=== PATIENT | female | born 1955 | race Two or more races ===

== ENCOUNTER 2020-08-02 15:00 | Outpatient (RCR) | payer MEDICARE, MEDICAID, SELFPAY | END 2020-08-09 09:52 | disposition still patient (30) | LOC: HO.OT 15:00 | PROVIDERS: Visit Provider Student in an Organized Health Care Education/Training Program | DX: M06.9 Rheumatoid arthritis, unspecified (principal); M79.642 Pain in left hand; M79.641 Pain in right hand | CPT/HCPCS: 97035; 97110; 97166 ==

== ENCOUNTER → 2020-08-05 11:21 | Outpatient (BNVA) | payer MEDICARE, MEDICAID, SELFPAY | PROVIDERS: Visit Provider Urology | DX: N20.0 Calculus of kidney (principal) | CPT/HCPCS: 99212 ==

== ENCOUNTER 2020-08-17 15:00 | Outpatient (RCR) | payer MEDICARE, MEDICAID, SELFPAY ==
--- NOTE | 2020-07-23 16:07 | MHC.PT.EP ---
[facility] [place] Office [place] Office [place] Office [address] [phone] F: [phone] F: [phone] F: [phone] F: [phone] Physical Therapy Plan of Care Date of Evaluation: 07/23/20 Date of Surgery: NA...R TKR IN PAST Diagnosis: RA, PAIN IN KNEES AND LB Assessment: Pt IS 64 YO F REFERRED TO PT FROM RHEUMATOLOGY WITH BACK AND KNEE PAIN (Pt REPORTS SCIATICA TYPE SXS ON R AND HAS HX OF R TKR). Pt WITH ANTALGIC GT WITH WEAK GLUT MMS AND SOME DECREASE IN HER BAL, UNABLE TO PERF 10 R OF SLR ON R, LIMITED R KNEE FLEX, TIGHT R GLUT/PIRIFORMIS (UNABLE TO SIT FIG 4 R WITHOUT A TO LIFT LEG). Pt REPORTS PT IN PAST WITHOUT RELIEF..SHOULD BENEFIT FROM PT FOR INCREASING R LE STRENGTH AND ROM TO HELP DECREASE BACK AND KNEE PAIN Frequency and Duration: The patient will be seen 2X/WK X 6 WKS Short Term Goals: 1. CENTRALIZE SXS 2. INCREASED AWARENESS BACK AND KNEE CARE Custodial Goals: 1, I HEP WITH DC EX PLAN 2. DECREASED BACK PAIN AT LEAST 50% WITH ADLS 3. DECREASED KNEE PAIN AT LEAST 50% WITH ADLS 4. INCREASED R KNEE ROM 10 DEGREES Treatment Plan: Modalities to reduce pain, spasms and effusion. Manual therapy to restore motion and function. Therapeutic exercise to improve strength and flexibility. Neuromuscular re-education for posture and balance. Therapeutic activities to return to functional activities of daily living. Please sign and return to therapist. Thank you for your referral.
--- NOTE | 2020-07-23 16:09 | MHC.PT.EP ---
[facility] [place] Office [place] Office [place] Office [address] [phone] F: [phone] F: [phone] F: [phone] F: [phone] Physical Therapy Plan of Care Date of Evaluation: 07/23/20 Date of Surgery: NA...R TKR IN PAST Diagnosis: RA, PAIN IN KNEES AND LB Assessment: Pt IS 64 YO F REFERRED TO PT FROM RHEUMATOLOGY WITH BACK AND KNEE PAIN (Pt REPORTS SCIATICA TYPE SXS ON R AND HAS HX OF R TKR). Pt WITH ANTALGIC GT WITH WEAK GLUT MMS AND SOME DECREASE IN HER BAL, UNABLE TO PERF 10 R OF SLR ON R, LIMITED R KNEE FLEX, TIGHT R GLUT/PIRIFORMIS (UNABLE TO SIT FIG 4 R WITHOUT A TO LIFT LEG). Pt REPORTS PT IN PAST WITHOUT RELIEF..SHOULD BENEFIT FROM PT FOR INCREASING R LE STRENGTH AND ROM TO HELP DECREASE BACK AND KNEE PAIN Frequency and Duration: The patient will be seen 2X/WK X 6 WKS Short Term Goals: 1. CENTRALIZE SXS 2. INCREASED AWARENESS BACK AND KNEE CARE Snf Goals: 1, I HEP WITH DC EX PLAN 2. DECREASED BACK PAIN AT LEAST 50% WITH ADLS 3. DECREASED KNEE PAIN AT LEAST 50% WITH ADLS 4. INCREASED R KNEE ROM 10 DEGREES Treatment Plan: Modalities to reduce pain, spasms and effusion. Manual therapy to restore motion and function. Therapeutic exercise to improve strength and flexibility. Neuromuscular re-education for posture and balance. Therapeutic activities to return to functional activities of daily living. Please sign and return to therapist. Thank you for your referral.
--- NOTE | 2020-09-24 09:57 | MHC.PT.DC ---
[facility] [place] Office [place] Office [place] Office [address]rie Pereira [address] [phone] F: [phone] F: [phone] F: [phone] F: [phone] Physical Therapy Discharge Report Diagnosis: RA, PAIN IN KNEES AND LB Date of Surgery: NA...R TKR IN PAST Date of Evaluation: 07/23/20 Date of Discharge: 09/24/20 Treatments to Date: 7 Cancellations to Date: 1 No Shows to Date: 1 Discharge Status: Patient Elected to Stop Discharge Summary: Pt LAST SEEN ON 08/17/2020 THEN NO SHOW ON 08/20/20 AT LAST APPT FATIGUE REPORTED WITH STANDING EXS, RELIEF WITH MH FOR LB. pt. reports doing some ex at home. [ End ] Electronically signed by: MANNY SELF PT Please sign and return to therapist. Thank you for your referral.
== END 2020-11-03 12:15 | disposition other institution (70) ==
LOC: HO.PT 15:00
PROVIDERS: PCP Internal Medicine; Visit Provider Student in an Organized Health Care Education/Training Program
DX: M06.9 Rheumatoid arthritis, unspecified (principal)
CPT/HCPCS: 97110; 97140; 97162

== ENCOUNTER 2020-09-28 11:52 | Outpatient (REF) | payer MEDICARE, MEDICAID, SELFPAY ==
[2020-09-28 12:30] LABS: MANUAL DIFF FLAG NO
[2020-09-28 12:45] LABS: Basophils Absolute Auto 0.1 X10*3/uL (0.0-0.2); Basophils Percent Auto 0.8 % (0-2); Eosinophils Absolute Auto 0.1 X10*3/uL (0.0-0.4); Hematocrit 41.7 % (37-47); Hemoglobin 13.6 g/dl (12.0-16.0); Imm Gran Abs Auto 0.01 X10*3/uL (0.00-0.03); Imm Gran Pct Auto 0.2 % (0.0-0.4); Lymphocytes Absolute Auto 2.5 X10*3/uL (1.2-4.9); Lymphocytes Percent Auto 41.8 % (20-40); Mean Corpuscular HGB Conc 32.6 g/dl (31.0-35.0); Mean Corpuscular Hemoglobin 30.4 pg (27.0-33.0); Mean Corpuscular Volume 93.1 fL (80-98); Mean Platelet Volume 10.2 fL (9.4-12.3); Monocytes Absolute Auto 0.6 X10*3/uL (0.1-1.2); Monocytes Percent Auto 9.1 % (2-11); Neutrophils Absolute Auto 2.8 X10*3/uL (2.0-8.3); Neutrophils Percent Auto 46.1 % (45-73); Platelet Count 160 X10*3/uL (160-400); Red Blood Count 4.48 X10*6/uL (4.20-5.50); Red Cell Distribution Width 13.2 % (11.0-16.0); White Blood Count 6.1 X10*3/uL (4.8-10.8)
[2020-09-28 13:06] LABS: Alanine Aminotransferase 22 U/L (0-31); Alkaline Phosphatase 62 U/L (39-117); Anion Gap 11 (12-20); Aspartate Amino Transferase 21 U/L (5-31); Bilirubin Total 0.6 mg/dL (0.0-1.0); Blood Urea Nitrogen 18 mg/dL (9-16); C Reactive Protein 0.07 mg/dL (< or = 0.50); Calcium 8.9 mg/dL (8.4-10.2); Carbon Dioxide 28 mmol/L (22-29); Chloride 109 mmol/L (96-108); Estimated Glomerular Filt Rate > 60; Glucose Random 101 mg/dL (60-115); Potassium 3.9 mmol/l (3.3-5.1); Sodium 144 mmol/L (135-145); Total Protein 7.4 g/dL (6.5-8.0)
== END 2020-09-28 11:53 | disposition home or self-care (01) ==
LOC: HO.LAB 11:52
PROVIDERS: PCP Internal Medicine; Visit Provider Student in an Organized Health Care Education/Training Program
DX: N20.0 Calculus of kidney (principal); R73.01 Impaired fasting glucose; M06.9 Rheumatoid arthritis, unspecified; L50.8 Other urticaria; M47.812 Spondylosis without myelopathy or radiculopathy, cervical region; G47.00 Insomnia, unspecified; M21.622 Bunionette of left foot
CPT/HCPCS: 36415; 80053; 85025; 86140

== ENCOUNTER → 2020-10-19 12:51 | Outpatient (BNVA) | payer MEDICARE, MEDICAID, SELFPAY | PROVIDERS: Visit Provider Student in an Organized Health Care Education/Training Program | DX: Z13.89 Encounter for screening for other disorder (principal) | CPT/HCPCS: Q3014 ==

== ENCOUNTER 2020-12-24 09:09 | Outpatient (REF) | payer MEDICARE, MEDICAID, SELFPAY ==
[2020-12-24 10:18] LABS: MANUAL DIFF FLAG NO
[2020-12-24 10:20] LABS: Basophils Absolute Auto 0.1 X10*3/uL (0.0-0.2); Basophils Percent Auto 0.7 % (0-2); Eosinophils Absolute Auto 0.1 X10*3/uL (0.0-0.4); Eosinophils Percent Auto 1.4 % (0-4); Hematocrit 40.2 % (37-47); Imm Gran Abs Auto 0.01 X10*3/uL (0.00-0.03); Imm Gran Pct Auto 0.1 % (0.0-0.4); Lymphocytes Percent Auto 35.5 % (20-40); Mean Corpuscular HGB Conc 32.3 g/dl (31.0-35.0); Mean Corpuscular Hemoglobin 29.7 pg (27.0-33.0); Mean Platelet Volume 9.9 fL (9.4-12.3); Monocytes Absolute Auto 0.8 X10*3/uL (0.1-1.2); Monocytes Percent Auto 9.6 % (2-11); Neutrophils Absolute Auto 4.4 X10*3/uL (2.0-8.3); Neutrophils Percent Auto 52.7 % (45-73); Platelet Count 230 X10*3/uL (160-400); Red Blood Count 4.37 X10*6/uL (4.20-5.50); Red Cell Distribution Width 13.8 % (11.0-16.0); White Blood Count 8.3 X10*3/uL (4.8-10.8)
[2020-12-24 10:48] LABS: Cholesterol 160 mg/dL; HDL Cholesterol 46 mg/dL; LDL Cholesterol Calculated 90 mg/dl; Triglycerides 121 mg/dL
[2020-12-24 10:51] LABS: Alanine Aminotransferase 18 U/L (0-31); Albumin Level 3.8 g/dL (3.5-5.0); Alkaline Phosphatase 59 U/L (39-117); Anion Gap 12 (12-20); Aspartate Amino Transferase 14 U/L (5-31); Bilirubin Total 0.5 mg/dL (0.0-1.0); Blood Urea Nitrogen 21 mg/dL (9-16); C Reactive Protein 0.06 mg/dL (< or = 0.50); Calcium 8.7 mg/dL (8.4-10.2); Carbon Dioxide 27 mmol/L (22-29); Chloride 109 mmol/L (96-108); Estimated Glomerular Filt Rate > 60; Glucose Random 112 mg/dL (60-115); Potassium 4.1 mmol/L (3.3-5.1); Sodium 144 mmol/L (135-145); Total Protein 7.1 g/dL (6.5-8.0)
[2020-12-24 11:12] LABS: Erythrocyte Sedimentation Rate 26 MM/HR (0-20)
== END 2020-12-24 09:10 | disposition home or self-care (01) ==
LOC: HO.LAB 09:09
PROVIDERS: Absent Provider Internal Medicine; PCP Internal Medicine; Visit Provider Student in an Organized Health Care Education/Training Program
DX: M06.00 Rheumatoid arthritis without rheumatoid factor, unspecified site (principal); Z79.52 Long term (current) use of systemic steroids; Z79.899 Other long term (current) drug therapy
CPT/HCPCS: 36415; 80053; 80061; 85025; 85652; 86140; 99212

== ENCOUNTER 2021-02-13 01:58 | Emergency (ER) | payer MEDICARE, MEDICAID, SELFPAY ==
--- NOTE | ~2021-02-13 | CT_ITS ---
EXAMINATION: CT MASTOID BONE CLINICAL INFORMATION: Right sided pain over mastoid COMPARISON: MRI brain 08/04/2015 TECHNIQUE: Contiguous axial imaging through the skull at the level of the mastoid air cells. Coronal and sagittal reformats. FINDINGS: There is a fracture of the posterior mastoid cortex (series 2 image 44/212). There is chronic bony destruction at the level of the occipitomastoid suture. A radiopaque foreign body is noted in the overlying subcutaneous fat with an abnormal soft tissue process containing low-attenuation foci suspicious for air. This has the appearance of a pathologic fracture associated with an infectious or granulomatous process. Given a radiopaque foreign body, prior penetrating injury is suspected; clinical correlation is required. Anteriorly the right mastoid air cells are clear. The left mastoid air cells are clear. The internal/external auditory canals are intact. The ossicles are intact. There is a small polyp or mucous retention cyst in the liver right maxillary sinus. There is mild left maxillary sinusitis with mucosal thickening. Nasal septum is deviated to the right. The temporomandibular joints articulate normally. There is asymmetric right greater than left temporomandibular joint space loss with bony sclerosis suggesting osteoarthritis. Calcific density within the medial joint space (example coronal series 5 image 30/162) may represent a calcified extruded disc. This is a potential cause of right-sided pain and dental consultation is advised. Patient is status post bilateral lens extraction. Atherosclerotic peripheral vascular disease. Limited views of the intracranial structures are normal. CT/CT mastoid IMPRESSION: 1. There is an apparent pathologic fracture along the posterior aspect of the right mastoid bone at the level of the occipitomastoid suture. There is overlying soft tissue abnormality with radiopaque foreign body. This raises the possibility of infection and prior penetrating injury. Clinical correlation is required. 2. Also noted is asymmetric degenerative disease of the right temporal mandibular joint with joint space loss, calcination and extrusion of the disc. 3. Mild left-sided predominant maxillary sinus disease.
[2021-02-13 02:00] VITALS: BP 146/49; PULSE 91; RESP 20; O2SAT 95; BMI 31.5
--- NOTE | 2021-02-13 03:30 | ED_ITS ---
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 Patient was seen at [facility] and evaluated by Neurology and treated on 01/19 with a glycerol rhizotomy this states that she had little relief. Patient presented to [facility] again 2 days ago and at that time states that heard doses of gabapentin and Percocet were increased. Patient now presents this evening stating that she continues to have severe pain to the right side of the face and jaw and is not getting any relief with the pain medications despite taking the gabapentin, 200 mg, b.i.d. and the Percocet every 6 hours. She denies visual disturbances or pain over the right temporal area as well as denying any pain with chewing. She denies fever, chills, sore throat, ear pain, difficulty swallowing. Patient states that the pain is sharp, shooting in nature and points to the posterior aspect of the right angle of the jaw. She denies any tooth pain or pain on opening her mouth. Related Data Home Medications Medication Instructions Recorded Confirmed acetaminophen 325 mg capsule 325 mg PO QID PRN 07/08/20 01/21/21 cholecalciferol (vitamin D3) 50 50 mcg PO DAILY 07/08/20 01/21/21 mcg (2,000 unit) capsule diclofenac sodium 1 % topical gel g TOPICAL DAILY 07/08/20 01/21/21 pyridoxine (vitamin B6) 100 mg 50 mg PO BID 07/08/20 01/21/21 tablet tizanidine 2 mg tablet 2 mg PO BEDTIME PRN 07/08/20 01/21/21 Previous Rx's Medication Instructions Recorded etanercept 50 mg/mL (1 mL) 50 mg SUBCUT QWEEK #4 ml 08/31/20 subcutaneous pen injector pregabalin 100 mg capsule 100 mg PO BID #60 cap 11/09/20 hydroxychloroquine 200 mg tablet 200 mg PO BID #60 tab 11/12/20 benzonatate 200 mg capsule 200 mg PO TID PRN #30 cap 12/07/20 baclofen 10 mg tablet 10 mg PO TID #90 tab 12/21/20 omeprazole 20 mg capsule,delayed 20 mg PO DAILY #90 cap 01/12/21 release Allergies Allergy/AdvReac Type Severity Reaction Status Date / Time No Known Allergies Allergy Verified 01/21/21 00:39 [No Known Allergies*] Review of Systems Review of Systems: Pertinent positives and negatives as stated in HPI 10 point review of systems is otherwise negative. PMFSH Past Medical History Source: nursing notes reviewed Medical History Autoimmune urticaria Cervical spondylosis without myelopathy Fibromyalgia Gastroesophageal reflux disease Hiatal hernia Impaired fasting glucose Insomnia Loose right total knee arthroplasty Morbid obesity due to excess calories Osteoarthritis Rheumatoid arthritis Seronegative rheumatoid arthritis Tailor's bunion of left foot Trigeminal neuralgia of right side of face Surgical History History of bunionectomy of left great toe History of cranioplasty History of laparoscopic cholecystectomy History of shoulder surgery Status post laser lithotripsy of ureteral calculus Status post right knee replacement Family History Family History Father No problems noted. Mother Hypertension Maternal Grandmother No problems noted. Maternal Grandfather No problems noted. Paternal Grandmother No problems noted. Paternal Grandfather No problems noted. Maternal Aunt Diabetes Sister No problems noted. Son No problems noted. Daughter No problems noted. Social History Social History Alcohol intake: never Smoking Status: Never smoker Advance Directives: No Advance Directives Information Provided: No Physical Exam Vital Signs: Vital Signs: Last Vital Signs Pulse 86 02/13/21 06:14 Resp 18 02/13/21 06:14 BP 137/74 02/13/21 06:14 Pulse Ox 91 L 02/13/21 06:14 Body Mass Index 31.5 VITAL SIGNS: Reviewed. GENERAL: Well developed, well nourished, mild distress. HEAD: Normocephalic/atraumatic, no bogginess/erythema/swelling noted over mastoid bone and no tenderness on palpation, there is no tenderness on palpation over right temporal/forehead area, there is no evidence of sialadenitis EYES: PERRLA, EOMI, pupils pinpoint EARS: Ext canals without abnormality, TMs non-bulging and non-erythematous NOSE: Nares patent bilateral OROPHARYNX: no oral lesions noted, posterior pharynx clear and non-erythematous without noted tonsillar enlargement/erythema/exudates, no dental caries/swelling noted NECK: Supple, no adenopathy LUNGS: Normal breath sounds. No adventitious sounds or accessory muscle use. SpO2<95> CARDIOVASCULAR: Regular rate and rhythm without noted murmurs ABDOMEN: Soft, non-tender, non-distended with bowel sounds. NEUROLOGIC: Alert and oriented x 4. Course Course Course Narrative: 65-year-old female with history and clinical presentation of persistent pain concerns are that this is potentially ?ghost pain? after the [place] procedure in 2014. Will rule out mastoiditis and low clinical suspicion for TMJ, AOM, giant cell arteritis, peritonsillar abscess, retropharyngeal abscess. Records requested from [facility]. Patient provided with combination analgesics Tylenol and Toradol. Reviewed note from [facility] dated 09/27/2020 and at that time patient requested follow-up with Dr. Lopez for her trigeminal neuralgia. Reviewed documentation from [facility] on 02/11 and at that time she was treated with fosphenytoin with resolution of her pain and then she was discharged on oxycodone and Tegretol. Review of all investigations shows an ESR within normal limits which is inconsistent with giant cell arteritis in addition to clinical exam which showed it to be unlikely. In addition, CT scan does show what appears to be a pathologic fracture within the mastoid and on further discussion with [facility] it is felt that this is consistent with the granulomatous reaction that is lead to the pathologic fracture. The radiologist states that he will formally request a neuroradiologist to review the images and post an addendum. Patient was provided with some Dilaudid which has provided minimal pain improvement. Your results and findings of the CT scan were discussed with the patient at bedside with the sales audit clerk. To include, the findings of significant degenerative changes at the right TMJ. Signed out to Mar: f/u Neuro-Radiologist read and discharge with follow up with her neurosurgeon on Sunday and +/- steroids. Medical Decision Making Lab Data Result diagrams: 02/13/21 03:26 02/13/21 03:26 Labs: Lab Results 02/13/21 02/13/21 02/13/21 Range/Units 03:26 03:26 03:26 WBC 6.1 (4.8-10.8) X10*3/uL RBC 4.37 (4.20-5.50) X10*6/uL Hgb 13.3 (12.0-16.0) g/dl Hct 39.2 (37-47) % MCV 89.7 (80-98) fL MCH 30.4 (27.0-33.0) pg MCHC 33.9 (31.0-35.0) g/dl RDW 13.3 (11.0-16.0) % Plt Count 139 L D (160-400) X10*3/uL MPV 10.1 (9.4-12.3) fL Immature Gran % (Auto) 0.2 (0.0-0.4) % Neut % (Auto) 48.4 (45-73) % Lymph % (Auto) 40.5 H (20-40) % [facility] % (Auto) 9.7 (2-11) % Eos % (Auto) 0.5 (0-4) % Baso % (Auto) 0.7 (0-2) % Lymph # (Auto) 2.5 (1.2-4.9) X10*3/uL [facility] # (Auto) 0.6 (0.1-1.2) X10*3/uL Eos # (Auto) 0.0 (0.0-0.4) X10*3/uL Baso # (Auto) 0.0 (0.0-0.2) X10*3/uL Abs Immat Gran (auto) 0.01 (0.00-0.03) X10*3/uL Absolute Neuts (auto) 2.9 (2.0-8.3) X10*3/uL Absolute Nucleated RBC 0.000 (0.0-0.012) X10*3/uL Nucleated RBC % (auto) 0.0 (0.0-0.2) /100WBC ESR 16 (0-20) MM/HR Sodium 142 (135-145) mmol/L Potassium 3.7 (3.3-5.1) mmol/L Chloride 108 (96-108) mmol/L Carbon Dioxide 25 (22-29) mmol/L Anion Gap 13 (12-20) BUN 14 (9-16) mg/dL Creatinine 0.66 (0.5-1.4) mg/dL Estim Creat Clear Calc 81.2 Estimated GFR > 60 Random Glucose 119 H (60-115) mg/dL Calcium 8.8 (8.4-10.2) mg/dL Total Bilirubin 0.4 (0.0-1.0) mg/dL AST 14 (5-31) U/L ALT 16 (0-31) U/L Alkaline Phosphatase 73 D (39-117) U/L C-Reactive Protein 0.12 (< or = 0.50) mg/dL Total Protein 7.3 (6.5-8.0) g/dL Albumin 4.1 (3.5-5.0) g/dL Discharge Plan Discharge Prescriptions: No Action etanercept 50 mg/mL (1 mL) pen injector 50 mg subcut QWEEK Qty: 4 RF: 5 pregabalin 100 mg capsule 100 mg PO BID Qty: 60 RF: 5 hydroxychloroquine 200 mg tablet 200 mg PO BID Qty: 60 RF: 5 benzonatate 200 mg capsule 200 mg PO TID PRN (Reason: cough) Qty: 30 RF: 0 baclofen 10 mg tablet 10 mg PO TID Qty: 90 RF: 3 omeprazole 20 mg capsule,delayed release(DR/EC) 20 mg PO DAILY Qty: 90 RF: 0 tizanidine 2 mg tablet 2 mg PO BEDTIME PRNRF: 0 diclofenac sodium 1 % gel topical DAILY RF: 0 acetaminophen 325 mg capsule 325 mg PO QID PRNRF: 0 pyridoxine (vitamin B6) [Vitamin B-6] 100 mg tablet 50 mg PO BID RF: 0 cholecalciferol (vitamin D3) 50 mcg (2,000 unit) capsule 50 mcg PO DAILY RF: 0
[2021-02-13 03:33] LABS: Basophils Percent Auto 0.7 % (0-2); Eosinophils Percent Auto 0.5 % (0-4); Imm Gran Abs Auto 0.01 X10*3/uL (0.00-0.03); Imm Gran Pct Auto 0.2 % (0.0-0.4); Monocytes Percent Auto 9.7 % (2-11); Neutrophils Absolute Auto 2.9 X10*3/uL (2.0-8.3); PLT CLUMP 1; SCAN SMEAR FLAG 1
[2021-02-13 03:35] LABS: Hematocrit 39.2 % (37-47); Hemoglobin 13.3 g/dl (12.0-16.0); Lymphocytes Absolute Auto 2.5 X10*3/uL (1.2-4.9); Lymphocytes Percent Auto 40.5 % (20-40); Mean Corpuscular HGB Conc 33.9 g/dl (31.0-35.0); Mean Corpuscular Hemoglobin 30.4 pg (27.0-33.0); Mean Corpuscular Volume 89.7 fL (80-98); Mean Platelet Volume 10.1 fL (9.4-12.3); Monocytes Absolute Auto 0.6 X10*3/uL (0.1-1.2); Neutrophils Percent Auto 48.4 % (45-73); Platelet Count 139 X10*3/uL (160-400); Red Blood Count 4.37 X10*6/uL (4.20-5.50); Red Cell Distribution Width 13.3 % (11.0-16.0); White Blood Count 6.1 X10*3/uL (4.8-10.8)
[2021-02-13 03:42] LABS: MANUAL DIFF FLAG NO
[2021-02-13 03:55] LABS: Alanine Aminotransferase 16 U/L (0-31); Albumin Level 4.1 g/dL (3.5-5.0); Alkaline Phosphatase 73 U/L (39-117); Anion Gap 13 (12-20); Aspartate Amino Transferase 14 U/L (5-31); Bilirubin Total 0.4 mg/dL (0.0-1.0); Blood Urea Nitrogen 14 mg/dL (9-16); C Reactive Protein 0.12 mg/dL (< or = 0.50); Calcium 8.8 mg/dL (8.4-10.2); Carbon Dioxide 25 mmol/L (22-29); Chloride 108 mmol/L (96-108); Creatinine Clr Calc Pharmacy 81.2; Estimated Glomerular Filt Rate > 60; Glucose Random 119 mg/dL (60-115); Potassium 3.7 mmol/L (3.3-5.1); Sodium 142 mmol/L (135-145); Total Protein 7.3 g/dL (6.5-8.0)
[2021-02-13] MEDS: Ketorolac Tromethamine 15 MG/ML VIAL IM (04:06)
[2021-02-13] MEDS: Acetaminophen 325 MG TABLET 975 MG PO (04:06)
[2021-02-13 04:19] LABS: Erythrocyte Sedimentation Rate 16 MM/HR (0-20)
[2021-02-13] MEDS: HYDROmorphone HCl 0.5 MG/0.5 ML SYRINGE 0.25 MG IVPUSH (06:03)
[2021-02-13 06:14] VITALS: BP 137/74; PULSE 86; RESP 18; O2SAT 91
--- NOTE | 2021-02-13 06:21 | PC.NURSE ---
PT EXPERIENCING PAIN TO RIGHT LATERAL POSTERIOR NECK. PT FALLS ASLEEP FOR APROX 1 HOUR BEFORE VITALS AND MEDICATION ADMINISTRATION.
--- NOTE | 2021-02-13 07:31 | PC.NURSE ---
Pt continues to report 10/10 right jaw pain, splinting area. Dr Vaughan and staff nurse midwife at bedside at this time.
[2021-02-13] MEDS: Morphine Sulfate 4 MG/ML CARTRIDGE IVPUSH (08:08)
[2021-02-13 08:09] VITALS: BP 131/76; PULSE 78; RESP 16; O2SAT 95
--- NOTE | 2021-02-13 08:11 | PC.NURSE ---
Pt medicated as charted for jaw pain. Placed on 2lpm via nc, 02 down to 91% during morphine administration, pt also reports avoiding deep breathing d.t increased pain to jaw with deep breathing. denies feeling SOB
--- NOTE | 2021-02-13 08:28 | PC.NURSE ---
Plan for pt to be transferred to [facility] for further eval and treat
--- NOTE | 2021-02-13 08:41 | PC.NURSE ---
Pt request this RN speak to Thomas and update him on plan for transfer contact [phone] Thomas called
== END 2021-02-13 09:26 | disposition short-term general hospital (02) ==
PROVIDERS: Student in an Organized Health Care Education/Training Program; Emergency Provider Emergency Medicine Emergency Medical Services; PCP Internal Medicine
DX: G50.0 Trigeminal neuralgia (principal); G89.29 Other chronic pain; Z79.899 Other long term (current) drug therapy
CPT/HCPCS: 36415; 70481; 80053; 85025; 85652; 86140; 96372; 96374; 96375; 99285; J1170; J1885; J2270

== ENCOUNTER → 2021-03-24 11:14 | Outpatient (BNVA) | payer MEDICARE, MEDICAID, SELFPAY | PROVIDERS: PCP Internal Medicine; Visit Provider Student in an Organized Health Care Education/Training Program | DX: M06.00 Rheumatoid arthritis without rheumatoid factor, unspecified site (principal) | CPT/HCPCS: 99212 ==

== ENCOUNTER 2021-03-28 13:28 | Outpatient (REF) | payer MEDICARE, MEDICAID, SELFPAY ==
--- NOTE | ~2021-03-28 | XR_ITS ---
EXAMINATION: XR KNEE, RIGHT CLINICAL INFORMATION: Rheumatoid arthritis without rheumatoid factor. COMPARISON: None. TECHNIQUE: 4 views of the right knee. FINDINGS: There is total knee arthroplasty with prosthetic components in satisfactory alignment. No visible acute fracture or bony abnormality. The soft tissues are normal. XR/XR knee RT 4V IMPRESSION: Total right knee arthroplasty with prosthetic components in satisfactory alignment.
== END 2021-03-28 13:29 | disposition home or self-care (01) ==
LOC: HO.XRAY 13:28
PROVIDERS: PCP Internal Medicine; Visit Provider Student in an Organized Health Care Education/Training Program
DX: M06.00 Rheumatoid arthritis without rheumatoid factor, unspecified site (principal)
CPT/HCPCS: 73564

== ENCOUNTER 2021-05-20 13:39 | Emergency (ER) | payer MEDICARE, MEDICAID, SELFPAY ==
--- NOTE | ~2021-05-20 | CT_ITS ---
EXAMINATION: CT ABDOMEN AND PELVIS WITHOUT CONTRAST CLINICAL INFORMATION: Left flank pain/left lower quadrant abdominal pain COMPARISON: November 30, 2019 TECHNIQUE: Multidetector volumetric imaging was performed from the superior aspect of the liver through the pubic symphysis. Sagittal and coronal reformatted images were obtained on the technologist's workstation. This CT examination was performed using dose optimization techniques as appropriate, variously including the following: *Automated exposure control *Adjustment of mA and/or kV according to patient size (this includes techniques or standardized protocols for targeted exams where dose is matched to indication/reason for exam; i.e. extremities or head) *Use of iterative reconstruction technique DLP: 890 mGy-cm FINDINGS: LUNG BASES: There is bilateral groundglass opacity present which may be related to atelectasis. No pleural or pericardial effusion. LIVER, GALLBLADDER, AND BILIARY TREE: The liver is normal in size, shape, and attenuation. No focal hepatic lesion or biliary ductal dilatation is present. Status post cholecystectomy. PANCREAS: Unremarkable. SPLEEN: Unremarkable. ADRENAL GLANDS: Unremarkable. KIDNEYS AND URETERS: The kidneys are normal in size, shape, and attenuation. No hydronephrosis, hydroureter, or calculi seen. No perinephric stranding. There has been resolution of previously noted mild right hydronephrosis.There is question of a 1 mm nonocclusive calculus within the distal left ureter however this is likely related to pixel artifact with no secondary evidence to suggest a nonobstructing calculus. BLADDER: Unremarkable. GASTROINTESTINAL TRACT: No dilated loops of large or small bowel are evident. No free fluid or free air is seen. No pericolonic inflammatory change. The appendix is visualized and appears unremarkable. ABDOMINAL WALL: No significant hernia is appreciated. LYMPH NODES: No lymphadenopathy identified. VASCULAR: Unremarkable. PELVIC VISCERA: Unremarkable. OSSEOUS STRUCTURES: No destructive bony lesions identified. There is mild scoliosis of the lumbar spine convex left. CT/CT abdomen pelvis wo con IMPRESSION: No definite evidence of obstructive uropathy as described. No evidence of ileus or bowel obstruction.
[2021-05-20 14:08] VITALS: BP 113/78; PULSE 87; RESP 18; TEMP 36.4; O2SAT 96; BMI 32.8
[2021-05-20] MEDS: oxyCODONE HCl Immed Release 5 MG TABLET PO (14:43)
[2021-05-20 14:47] LABS: MANUAL DIFF FLAG NO
[2021-05-20 14:48] LABS: Basophils Percent Auto 0.7 % (0-2); Eosinophils Absolute Auto 0.1 X10*3/uL (0.0-0.4); Eosinophils Percent Auto 1.5 % (0-4); Hematocrit 38.6 % (37-47); Imm Gran Abs Auto 0.01 X10*3/uL (0.00-0.03); Imm Gran Pct Auto 0.2 % (0.0-0.4); Lymphocytes Absolute Auto 2.3 X10*3/uL (1.2-4.9); Mean Corpuscular HGB Conc 33.7 g/dl (31.0-35.0); Mean Corpuscular Hemoglobin 30.8 pg (27.0-33.0); Mean Corpuscular Volume 91.5 fL (80-98); Mean Platelet Volume 9.8 fL (9.4-12.3); Monocytes Absolute Auto 0.6 X10*3/uL (0.1-1.2); Monocytes Percent Auto 10.4 % (2-11); Neutrophils Absolute Auto 2.8 X10*3/uL (2.0-8.3); Neutrophils Percent Auto 47.2 % (45-73); Platelet Count 138 X10*3/uL (160-400); Red Blood Count 4.22 X10*6/uL (4.20-5.50); Red Cell Distribution Width 13.2 % (11.0-16.0); White Blood Count 5.9 X10*3/uL (4.8-10.8)
[2021-05-20 15:15] LABS: Alanine Aminotransferase 14 U/L (0-31); Aspartate Amino Transferase 15 U/L (5-31); Blood Urea Nitrogen 14 mg/dL (9-16); Creatinine Clr Calc Pharmacy 65.6; Estimated Glomerular Filt Rate > 60
--- NOTE | 2021-05-20 15:44 | ED_ITS ---
HPI - Back Pain/Injury General Chief Complaint: Back Pain/Injury Stated Complaint: back pain Time Seen by Provider: 05/20/21 14:16 Source: patient Mode of arrival: ambulatory Limitations: no limitations History of Present Illness HPI Narrative: 65-year-old female presenting to the ED with complaints of atraumatic left back pain radiating to her left flank/left lower quadrant with associated intermittent episodes of diarrhea over the past few days worse today. She also reports dysuria. Denies any other symptoms complaints or concerns at this time. Reports she has had this pain in the past and she has had kidney stones. MD elicited complaint: back pain Pertinent past history: prior back pain and kidney stones Onset (ago): day(s) Timing: constant and progressively worsening Severity: moderate Similar Symptoms Previously: Yes Quality: aching Location: left flank and left lower back Radiation: abdomen (LLQ) Exacerbating factors: movement Relieving factors: immobilization Context: unknown Associated symptoms: increased urinary urgency, increased urinary frequency, abdominal pain and dysuria Treatments prior to arrival: NSAIDS and acetaminophen Work related injury: No Related Data Home Medications Medication Instructions Recorded Confirmed acetaminophen 325 mg capsule 325 mg PO QID PRN 07/08/20 01/21/21 cholecalciferol (vitamin D3) 50 50 mcg PO DAILY 07/08/20 01/21/21 mcg (2,000 unit) capsule diclofenac sodium 1 % topical gel g TOPICAL DAILY 07/08/20 01/21/21 pyridoxine (vitamin B6) 100 mg 50 mg PO BID 07/08/20 01/21/21 tablet (Vitamin B-6) tizanidine 2 mg tablet 2 mg PO BEDTIME PRN 07/08/20 01/21/21 carbamazepine 400 mg 400 mg PO BID 03/24/21 tablet,extended release,12 hr Previous Rx's Medication Instructions Recorded benzonatate 200 mg capsule 200 mg PO TID PRN #30 cap 12/07/20 baclofen 10 mg tablet 10 mg PO TID #90 tab 12/21/20 etanercept 50 mg/mL (1 mL) 50 mg SUBCUT QWEEK #4 ml 02/15/21 subcutaneous pen injector pregabalin 150 mg capsule (Lyrica) 150 mg PO BID #60 cap 03/15/21 prednisone 5 mg tablet See Rx Instructions PO DAILY #50 03/24/21 tab hydroxychloroquine 200 mg tablet 200 mg PO BID #60 tab 04/19/21 omeprazole 20 mg capsule,delayed 20 mg PO DAILY #90 cap 04/19/21 release cefuroxime axetil 500 mg tablet 500 mg PO BID 7 Days #14 tab 05/20/21 cyclobenzaprine 10 mg tablet 10 mg PO Q8H #10 tab 05/20/21 lidocaine HCl 4 % topical cream 1 appl TOPICAL BID PRN #120 g 05/20/21 (Aspercreme (lidocaine HCl)) naproxen 500 mg tablet 500 mg PO BID PRN #10 tab 05/20/21 oxycodone-acetaminophen 5 mg-325 1 tab PO Q6H PRN #10 tab 05/20/21 mg tablet (Percocet) Allergies Allergy/AdvReac Type Severity Reaction Status Date / Time No Known Allergies Allergy Verified 03/24/21 11:26 [No Known Allergies*] Review of Systems Review of Systems: Constitutional : No trauma, No Weight loss, No Fever, No Chills, ENT/Mouth : No Hearing loss, No Ear Pain, No Nasal Congestion, No Sinus Pain, No Hoarseness, No sore throat, No Rhinorrhea, No Swallowing Difficulty Cardiovascular : No Chest Pain, No SOB Respiratory : No Cough, No Dyspnea Gastrointestinal : + Diarrhea, + Abdominal pain, No Nausea, No Vomiting, No Hematochezia, No Melena Genitourinary : No Dysuria, No Urinary Frequency, No Hematuria, No Urinary or Bowel Incontinence/retention Musculoskeletal : + Back pain, No neck pain, No joint stiffness, No joint swelling Skin : No Skin Lesions, No rash or signs of infection Neuro : No Weakness, No radiation, No Numbness, No Paresthesias, No headache, no loss of bowel or bladder incontinence, no saddle anesthesia, Focal weakness, No radiation Denies history of IV drug usage. Yes all other systems are reviewed and are negative [facility] Past Medical History Attestation statement: The following information was validated with the patient. Medical History Autoimmune urticaria Cervical spondylosis without myelopathy Fibromyalgia Gastroesophageal reflux disease Hiatal hernia Impaired fasting glucose Insomnia Loose right total knee arthroplasty Morbid obesity due to excess calories Osteoarthritis Rheumatoid arthritis Seronegative rheumatoid arthritis Tailor's bunion of left foot Trigeminal neuralgia of right side of face Surgical History History of bunionectomy of left great toe History of cranioplasty History of laparoscopic cholecystectomy History of shoulder surgery Status post laser lithotripsy of ureteral calculus Status post right knee replacement Family History Family History Father No problems noted. Mother Hypertension Maternal Grandmother No problems noted. Maternal Grandfather No problems noted. Paternal Grandmother No problems noted. Paternal Grandfather No problems noted. Maternal Aunt Diabetes Sister No problems noted. Son No problems noted. Daughter No problems noted. Social History Social History Household Members: Spouse and Other Household Members Other:: mother,daughter Alcohol intake: never Patient Tobacco Use Status: Never used Tobacco Advance Directives: No Advance Directives Information Provided: No Physical Exam Vital Signs: Vital Signs: Last Vital Signs Temp 97.6 F 05/20/21 14:08 Pulse 87 05/20/21 14:08 Resp 18 05/20/21 14:08 BP 113/78 05/20/21 14:08 Pulse Ox 96 05/20/21 14:08 Body Mass Index 32.8 vital signs have been reviewed as normal and appeared to be correct. Blood pressure normal. Heart rate normal. Respiration rate normal. Temperature normal. Oxygen saturation normal. Appearance: Alert. Oriented X3. No acute distress. Head: Normal external exam. Normocephalic. Atraumatic. No Ho signs noted. No raccoon eyes noted Eyes: PERRLA. EOMI. Conjunctiva and sclera normal. Eyelids normal. ENT: EAC normal. TM's Normal. Pharynx normal. Uvula midline. Moist mucous mem branes. No trismus noted. No drooling noted. No muffled voice noted. Neck: Normal inspection. Neck supple. FROM. No adenopathy. Thyroid Normal. No meningeal signs. No neck mass noted. CVS: Normal heart rate and rhythm. Heart sound normal. No murmurs noted. Pulses normal throughout. Respiratory: No respiratory distress. Painless inspiration. Breath sounds normal. No wheezes/rales/rhonchi noted. Chest nontender. No accessory muscle usage noted or decreased air movement noted. Abdomen: Soft and mild tenderness palpation to left lower quadrant. Normal Bowel sounds normal in all 4 quadrants. No distention noted. No organomegaly noted. No visible injury noted. Back: + left CVA tenderness. No CVAT. Full range of motion noted. No obvious deformities, or edema. Mild para-spinal muscular tenderness from lumbar region to coccyx. Full ROM in back and lower extremities. 5/5 strength hip ex tension/flexion, abduction, adduction. Mild Lumbar pain with hip flexion against resistance. Straight leg raise test negative on right; Straight leg raise test negative on left; Reflexes normal ankle and knee bilaterally; EHL motor strength normal bilaterally. No rashes/lesion/induration/fluctuance or signs infection noted. Skin: Skin warm and dry. Normal skin color. Normal skin turgor. No rash es/lesions/lacerations noted. Extremities: No lower extremity edema. Extremities exhibit normal range of motion. Extremities nontender. Neuro: Oriented X 3. No motor deficit. No sensory deficit. Reflexes normal. Patient has a normal steady gait. Course Course Course Narrative: Pt c likely muscular pain, but could be herniated disc. Neuro exam shows no deficits. Not c/w AAA/epidural abscess/dissection.No high risk Hx (Incont, fever, immunosupp, recent surgery/LP, coag, signif trauma, wt loss, puls mass, hx/o Ca, TB, or IVDU) to warrant MRI/CT today. Not c/w spinal fx. Not cauda equina syndrome. Will obtain a CT scan of abdomen and pelvis without IV contrast to evaluate for possible kidney stones. Will obtain a UA to evaluate for possible UTI versus pyelonephritis. If all negative will DC c meds and f/u. Reevaluation(s) Reevaluation #1: - platelet count 138 although this is similar when compared to February's platelet count. Otherwise all other labs are within normal limits. UA with +2 leukocytes therefore will treat for UTI. - CT scan abdomen and pelvis negative for any acute processes. - will DC home with symptomatic treatment for muscle strain and UTI with antibiotics and instructions return if any new or worsening symptoms to follow up with primary care provider. Patient understands agrees with this plan. Time: 16:22 [facility] - Back Pain/Injury Medical Records Attestation: I reviewed the patient's medical records. Lab Data Attestation: I reviewed the patient's lab results. Result diagrams: 05/20/21 14:43 05/20/21 14:43 Labs: Lab Results 05/20/21 05/20/21 05/20/21 Range/Units 14:43 14:43 15:39 WBC 5.9 (4.8-10.8) X10*3/uL RBC 4.22 (4.20-5.50) X10*6/uL Hgb 13.0 (12.0-16.0) g/dl Hct 38.6 (37-47) % MCV 91.5 (80-98) fL MCH 30.8 (27.0-33.0) pg MCHC 33.7 (31.0-35.0) g/dl RDW 13.2 (11.0-16.0) % Plt Count 138 L (160-400) X10*3/uL MPV 9.8 (9.4-12.3) fL Immature Gran % (Auto) 0.2 (0.0-0.4) % Neut % (Auto) 47.2 (45-73) % Lymph % (Auto) 40.0 (20-40) % [place] % (Auto) 10.4 (2-11) % Eos % (Auto) 1.5 (0-4) % Baso % (Auto) 0.7 (0-2) % Lymph # (Auto) 2.3 (1.2-4.9) X10*3/uL [place] # (Auto) 0.6 (0.1-1.2) X10*3/uL Eos # (Auto) 0.1 (0.0-0.4) X10*3/uL Baso # (Auto) 0.0 (0.0-0.2) X10*3/uL Abs Immat Gran (auto) 0.01 (0.00-0.03) X10*3/uL Absolute Neuts (auto) 2.8 (2.0-8.3) X10*3/uL Absolute Nucleated RBC 0.000 (0.0-0.012) X10*3/uL Nucleated RBC % (auto) 0.0 (0.0-0.2) /100WBC Sodium 144 (135-145) mmol/L Potassium 4.1 (3.3-5.1) mmol/L Chloride 111 H (96-108) mmol/L Carbon Dioxide 27 (22-29) mmol/L Anion Gap 10 L (12-20) BUN 14 (9-16) mg/dL Creatinine 0.80 (0.5-1.4) mg/dL Estim Creat Clear Calc 65.6 Estimated GFR > 60 Random Glucose 93 (60-115) mg/dL Calcium 9.0 (8.4-10.2) mg/dL Magnesium 2.0 (1.6-2.6) mg/dL Total Bilirubin 0.2 (0.0-1.0) mg/dL AST 15 (5-31) U/L ALT 14 (0-31) U/L Alkaline Phosphatase 76 (39-117) U/L Total Protein 7.0 (6.5-8.0) g/dL Albumin 3.9 (3.5-5.0) g/dL Urine Color YELLOW Urine Appearance CLEAR Urine pH 6.0 (5.0-8.0) Ur Specific [place] >= 1.030 H (1.005-1.025) Urine Protein TRACE (NEG-TRACE) MG/DL Urine Glucose (UA) NEG (NEG) MG/DL Urine Ketones 5 (NEG) MG/DL Urine Blood NEG (NEG) Urine Nitrite NEG (NEG) Ur Leukocyte Esterase 2+ H (NEG) Imaging Data CT scan abdomen pelvis without IV contrast: Attestation: I personally reviewed and interpreted this imaging study as follows: Radiologist's impression: FINDINGS: LUNG BASES: There is bilateral groundglass opacity present which may be related to atelectasis. No pleural or pericardial effusion.? LIVER, GALLBLADDER, AND BILIARY TREE: The liver is normal in size, shape, and attenuation. No focal hepatic lesion or biliary ductal dilatation is present. Status post cholecystectomy.? PANCREAS: Unremarkable.? SPLEEN: Unremarkable.? ADRENAL GLANDS: Unremarkable.? KIDNEYS AND URETERS: The kidneys are normal in size, shape, and attenuation. No hydronephrosis, hydroureter, or calculi seen. No perinephric stranding. There has been resolution of previously noted mild right hydronephrosis.There is question of a 1 mm nonocclusive calculus within the distal left ureter however this is likely related to pixel artifact with no secondary evidence to suggest a nonobstructing calculus. BLADDER: Unremarkable.? GASTROINTESTINAL TRACT: No dilated loops of large or small bowel are evident. No free fluid or free air is seen. No pericolonic inflammatory change. The appendix is visualized and appears unremarkable. ABDOMINAL WALL: No significant hernia is appreciated.? LYMPH NODES: No lymphadenopathy identified. VASCULAR: Unremarkable. PELVIC VISCERA: Unremarkable.? OSSEOUS STRUCTURES: No destructive bony lesions identified. There is mild scoliosis of the lumbar spine convex left.? CT/CT abdomen pelvis wo con IMPRESSION: No definite evidence of obstructive uropathy as described. ? No evidence of ileus or bowel obstruction.? Discharge Plan Discharge Clinical Impression: Strain of lumbar region, UTI (urinary tract infection) Patient Disposition: Home, Self-Care Instructions: Urinary Tract Infection in Women (ED), Low Back Strain (ED), Lower Back Exercises (ED) Prescriptions: New cyclobenzaprine 10 mg tablet 10 mg PO Q8H Qty: 10 RF: 0 oxycodone-acetaminophen [Percocet] 5-325 mg tablet 1 tab PO Q6H PRN (Reason: pain) Qty: 10 RF: 0 cefuroxime axetil 500 mg tablet 500 mg PO BID 7 Days Qty: 14 RF: 0 naproxen 500 mg tablet 500 mg PO BID PRN (Reason: pain) Qty: 10 RF: 0 lidocaine HCl [Aspercreme (lidocaine HCl)] 4 % cream 1 appl topical BID PRN (Reason: pain) Qty: 120 RF: 0 No Action benzonatate 200 mg capsule 200 mg PO TID PRN (Reason: cough) Qty: 30 RF: 0 baclofen 10 mg tablet 10 mg PO TID Qty: 90 RF: 3 etanercept 50 mg/mL (1 mL) pen injector 50 mg subcut QWEEK Qty: 4 RF: 5 pregabalin [Lyrica] 150 mg capsule 150 mg PO BID Qty: 60 RF: 4 hydroxychloroquine 200 mg tablet 200 mg PO BID Qty: 60 RF: 5 omeprazole 20 mg capsule,delayed release(DR/EC) 20 mg PO DAILY Qty: 90 RF: 0 tizanidine 2 mg tablet 2 mg PO BEDTIME PRNRF: 0 diclofenac sodium 1 % gel topical DAILY RF: 0 acetaminophen 325 mg capsule 325 mg PO QID PRNRF: 0 pyridoxine (vitamin B6) [Vitamin B-6] 100 mg tablet 50 mg PO BID RF: 0 cholecalciferol (vitamin D3) 50 mcg (2,000 unit) capsule 50 mcg PO DAILY RF: 0 carbamazepine 400 mg tablet extended release 12 hr 400 mg PO BID RF: 0 prednisone 5 mg tablet See Rx Instructions PO DAILY Qty: 50 RF: 0 Referrals: Lakshmi Rouse MD [Primary Care Provider] - 2 days Print Language: Prydeinig
[2021-05-20 15:47] LABS: Glucose Urine UA NEG (NEG); Leukocyte Esterase Urine 2+ (NEG); Nitrite Urine NEG (NEG); Specific Gravity - Urine >= 1.030 (1.005-1.025); UACC Culture Trigger YES; Urine Blood NEG (NEG); Urine Ketones 5 MG/DL (NEG); Urine Protein TRACE MG/DL (NEG-TRACE)
[2021-05-20 15:48] LABS: Appearance Urine CLEAR; Color Urine YELLOW
[2021-05-20 16:04] LABS: Albumin Level 3.9 g/dL (3.5-5.0); Alkaline Phosphatase 76 U/L (39-117); Anion Gap 10 (12-20); Bilirubin Total 0.2 mg/dL (0.0-1.0); Carbon Dioxide 27 mmol/L (22-29); Chloride 111 mmol/L (96-108); Glucose Random 93 mg/dL (60-115); Potassium 4.1 mmol/L (3.3-5.1); Sodium 144 mmol/L (135-145)
[2021-05-20 16:22] LABS: Bacteria Urine 2+ /LPF; Hyaline Casts Urine 0-2 /LPF; Mucus Urine 2+ /LPF; Squamous Epithelial Cell Urine 1+ /LPF
== END 2021-05-20 16:37 | disposition home or self-care (01) ==
PROVIDERS: Physician Assistant Medical; Emergency Provider Emergency Medicine; PCP Internal Medicine
DX: S39.012A Strain of muscle, fascia and tendon of lower back, initial encounter (principal); N39.0 Urinary tract infection, site not specified; R10.32 Left lower quadrant pain; R19.7 Diarrhea, unspecified; R39.15 Urgency of urination; R30.0 Dysuria; X58.XXXA Exposure to other specified factors, initial encounter; Y93.9 Activity, unspecified; Y92.9 Unspecified place or not applicable; Y99.9 Unspecified external cause status; Z79.899 Other long term (current) drug therapy
CPT/HCPCS: 36415; 74176; 80053; 81001; 83735; 85025; 87086; 87088; 87186; 99283; 99284

== ENCOUNTER 2021-07-09 09:48 | Outpatient (REF) | payer MEDICARE, MEDICAID, SELFPAY ==
--- NOTE | ~2021-07-09 | MM_ITS ---
EXAMINATION: MM SCREENING DIGITAL BREAST TOMOSYNTHESIS, BILATERAL CLINICAL INFORMATION: Screening. Asymptomatic. The lifetime risk of breast cancer based on the Tyrer-Cuzick Model is 11%. COMPARISON: Mammography: 11/10/2019, 03/24/2019, 10/25/2018, 10/19/2017; targeted right breast ultrasound 03/24/2019. TECHNIQUE: Digital breast tomosynthesis is performed in both the craniocaudal and mediolateral oblique views along with computer-aided detection (CAD). Synthesized 2D images are generated from the tomosynthesis. FINDINGS: There are scattered areas of fibroglandular density (ACR BI-RADS breast composition Category b). There are no significant masses, abnormal calcifications, or other abnormalities. No significant changes from prior exams. No developing density. The axilla and skin contours are unremarkable. MM/MM tomosynthesis screening BI IMPRESSION: No mammographic evidence of malignancy. ASSESSMENT: BI-RADS 1: Negative RECOMMENDATION: Routine annual mammography screening. This patient's information was entered into a reminder system with a target due date for their next mammogram.
== END 2021-07-09 09:49 | disposition home or self-care (01) ==
LOC: HO.MAMMO 09:48
PROVIDERS: Visit Provider Internal Medicine
DX: Z12.31 Encounter for screening mammogram for malignant neoplasm of breast (principal)
CPT/HCPCS: 77063; 77067

== ENCOUNTER 2021-08-03 07:23 | Outpatient (REF) | payer MEDICARE, MEDICAID, SELFPAY ==
--- NOTE | ~2021-08-03 | XR_ITS ---
EXAMINATION: XR SHOULDER, RIGHT CLINICAL INFORMATION: Right shoulder pain COMPARISON: None TECHNIQUE: Three views of the right shoulder. FINDINGS: There is mild acromioclavicular osteoarthritis. Glenohumeral joint is well preserved. No fracture. Alignment is anatomic. Soft tissues are normal with no abnormal calcifications. XR/XR shoulder RT min 2V IMPRESSION: Mild acromioclavicular joint arthritis.
== END 2021-08-03 07:24 | disposition home or self-care (01) ==
LOC: HO.HOSX 07:23
PROVIDERS: Visit Provider Physician Assistant
DX: M75.41 Impingement syndrome of right shoulder (principal)
CPT/HCPCS: 20610; 73030; 99212; J1040

== ENCOUNTER 2021-08-16 15:56 | Emergency (ER) | payer MEDICARE, MEDICAID, SELFPAY ==
[2021-08-16 16:15] VITALS: BP 130/61; PULSE 87; RESP 18; TEMP 35.9; O2SAT 95; BMI 32.5
--- NOTE | 2021-08-16 16:47 | ED_ITS ---
HPI - Back Pain/Injury General Chief Complaint: Back Pain/Injury Stated Complaint: left side back pain Time Seen by Provider: 08/16/21 16:25 Source: patient Mode of arrival: ambulatory Limitations: language barrier (Swiss Speaking) History of Present Illness MD elicited complaint: back pain Pertinent past history: prior back pain and kidney stones Onset (ago): day(s) (Past few days worse today) Timing: constant and progressively worsening Severity: moderate Similar Symptoms Previously: Yes Quality: aching Location: lumbar spine Radiation: left upper leg and left leg below the knee Exacerbating factors: movement, sitting upright, walking and lifting Relieving factors: none Context: unknown Associated symptoms: denies other symptoms Treatments prior to arrival: other (Has tried Motrin/Tylenol/muscle relaxants and no symptomatic relief) Work related injury: No Related Data Home Medications Medication Instructions Recorded Confirmed acetaminophen 325 mg capsule 325 mg PO QID PRN 07/08/20 06/07/21 cholecalciferol (vitamin D3) 50 50 mcg PO DAILY 07/08/20 06/07/21 mcg (2,000 unit) capsule pyridoxine (vitamin B6) 100 mg 50 mg PO BID 07/08/20 06/07/21 tablet (Vitamin B-6) tizanidine 2 mg tablet 2 mg PO BEDTIME PRN 07/08/20 06/07/21 carbamazepine 400 mg 400 mg PO BID 03/24/21 06/07/21 tablet,extended release,12 hr Previous Rx's Medication Instructions Recorded baclofen 10 mg tablet 10 mg PO TID #90 tab 12/21/20 etanercept 50 mg/mL (1 mL) 50 mg SUBCUT QWEEK #4 ml 02/15/21 subcutaneous pen injector hydroxychloroquine 200 mg tablet 200 mg PO BID #60 tab 04/19/21 lidocaine HCl 4 % topical cream 1 appl TOPICAL BID PRN #120 g 05/20/21 (Aspercreme (lidocaine HCl)) naproxen 500 mg tablet 500 mg PO BID PRN #30 tab 07/11/21 omeprazole 20 mg capsule,delayed 20 mg PO DAILY #90 cap 07/11/21 release acetaminophen 500 mg tablet 1,000 mg PO QID PRN #14 tab 08/16/21 (Tylenol Extra Strength) lidocaine 5 % topical patch 1 patch TOPICAL DAILY #15 ea 08/16/21 (Lidoderm) oxycodone 5 mg tablet 5 mg PO Q6H PRN #14 tab 08/16/21 prednisone 20 mg tablet 40 mg PO DAILY 5 Days #10 tab 08/16/21 pregabalin 150 mg capsule (Lyrica) 150 mg PO BID #60 cap 08/16/21 Allergies Allergy/AdvReac Type Severity Reaction Status Date / Time No Known Allergies Allergy Verified 03/24/21 11:26 [No Known Allergies*] Review of Systems Review of Systems: Constitutional : No trauma, No Weight loss, No Fever, No Chills, ENT/Mouth : No Hearing loss, No Ear Pain, No Nasal Congestion, No Sinus Pain, No Hoarseness, No sore throat, No Rhinorrhea, No Swallowing Difficulty Cardiovascular : No Chest Pain, No SOB Respiratory : No Cough, No Dyspnea Gastrointestinal : No Nausea, No Vomiting, No Diarrhea, No abdominal Pain, No Hematochezia, No Melena Genitourinary : No Dysuria, No Urinary Frequency, No Hematuria, No Urinary or Bowel Incontinence/retention Musculoskeletal : + Back pain, No neck pain, No joint stiffness, No joint swelling Skin : No Skin Lesions, No rash or signs of infection Neuro : No Weakness, + radiation, No Numbness, No Paresthesias, No headache, no loss of bowel or bladder incontinence, no saddle anesthesia, Focal weakness, No radiation Denies history of IV drug usage. Yes all other systems are reviewed and are negative COUNTS INCLUDE 234 BEDS AT THE [facility] Past Medical History Attestation statement: The following information was validated with the patient. Medical History Autoimmune urticaria Cervical spondylosis without myelopathy Fibromyalgia Gastroesophageal reflux disease Hiatal hernia Impaired fasting glucose Insomnia Loose right total knee arthroplasty Morbid obesity due to excess calories Osteoarthritis Rheumatoid arthritis Seronegative rheumatoid arthritis Tailor's bunion of left foot Trigeminal neuralgia of right side of face Surgical History History of bunionectomy of left great toe History of cranioplasty History of laparoscopic cholecystectomy History of shoulder surgery Status post laser lithotripsy of ureteral calculus Status post right knee replacement Family History Family History Father No problems noted. Mother Hypertension Maternal Grandmother No problems noted. Maternal Grandfather No problems noted. Paternal Grandmother No problems noted. Paternal Grandfather No problems noted. Maternal Aunt Diabetes Sister No problems noted. Son No problems noted. Daughter No problems noted. Social History Social History Household Members: Spouse and Other Household Members Other:: mother,daughter Housing: House Alcohol intake: never Patient Tobacco Use Status: Never used Tobacco Advance Directives: No Advance Directives Information Provided: No service: No Current occupational status: unemployed Physical Exam Vital Signs: Vital Signs: Last Vital Signs Temp 96.7 F L 08/16/21 16:15 Pulse 87 08/16/21 16:15 Resp 18 08/16/21 16:15 BP 130/61 08/16/21 16:15 Pulse Ox 95 08/16/21 16:15 Body Mass Index 32.5 vital signs have been reviewed as normal and appeared to be correct. Blood pressure normal. Heart rate normal. Respiration rate normal. Temperature normal. Oxygen saturation normal. Appearance: Alert. Oriented X3. No acute distress. Head: Normal external exam. Normocephalic. Atraumatic. No Ho signs noted. No raccoon eyes noted Eyes: PERRLA. EOMI. Conjunctiva and sclera normal. Eyelids normal. ENT: EAC normal. TM's Normal. Pharynx normal. Uvula midline. Moist mucous membranes. No trismus noted. No drooling noted. No muffled voice noted. Neck: Normal inspection. Neck supple. FROM. No adenopathy. Thyroid Normal. No meningeal signs. No neck mass noted. CVS: Normal heart rate and rhythm. Heart sound normal. No murmurs noted. Pulses normal throughout. Respiratory: No respiratory distress. Painless inspiration. Breath sounds normal. No wheezes/rales/rhonchi noted. Chest nontender. No accessory muscle usage noted or decreased air movement noted. Abdomen: Soft and nontender. Bowel sounds normal in all 4 quadrants. No distention noted. No organomegaly noted. No visible injury noted. Back: No CVA tenderness. Full range of motion noted. No obvious deformities, or edema. Mild para-spinal muscular tenderness from lumbar region to coccyx. Full ROM in back and lower extremities. 5/5 strength hip extension/flexion, abduction, adduction. Mild Lumbar pain with hip flexion against resistance. Straight leg raise test negative on right; Straight leg raise test negative on left; Reflexes normal ankle and knee bilaterally; EHL motor strength normal bilaterally. No rashes/lesion/induration/fluctuance or signs infection noted. Skin: Skin warm and dry. Normal skin color. Normal skin turgor. No rashes/lesions/lacerations noted. Extremities: No lower extremity edema. Extremities exhibit normal range of motion. Extremities nontender. Neuro: Oriented X 3. No motor deficit. No sensory deficit. Reflexes normal. Patient has a normal steady gait. Course Course Course Narrative: Pt c likely muscular pain, but could be herniated disc. Neuro exam shows no deficits. Not c/w AAA/epidural abscess/dissection.No high risk Hx (Incont, fever, immunosupp, recent surgery/LP, coag, signif trauma, wt loss, puls mass, hx/o Ca, TB, or IVDU) to warrant MRI/CT today. Not c/w Pyelo/UTI/kidney stone/spinal fx. Not cauda equina syndrome. Imaging not currently indicated. DC c meds and f/u. MDM - Back Pain/Injury Medical Records Attestation: I reviewed the patient's medical records. Discharge Plan Discharge Clinical Impression: Lumbar strain Patient Disposition: Home, Self-Care Instructions: Low Back Strain (ED), R.I.C.E. Treatment (ED), Lower Back Exercises (ED) Prescriptions: New lidocaine [Lidoderm] 5 % adhesive patch,medicated 1 patch topical DAILY Qty: 15 RF: 0 prednisone 20 mg tablet 40 mg PO DAILY 5 Days Qty: 10 RF: 0 acetaminophen [Tylenol Extra Strength] 500 mg tablet 1,000 mg PO QID PRN (Reason: fever or pain) Qty: 14 RF: 0 oxycodone 5 mg tablet 5 mg PO Q6H PRN (Reason: pain) Qty: 14 RF: 0 No Action baclofen 10 mg tablet 10 mg PO TID Qty: 90 RF: 3 etanercept 50 mg/mL (1 mL) pen injector 50 mg subcut QWEEK Qty: 4 RF: 5 hydroxychloroquine 200 mg tablet 200 mg PO BID Qty: 60 RF: 5 naproxen 500 mg tablet 500 mg PO BID PRN (Reason: pain) Qty: 30 RF: 0 omeprazole 20 mg capsule,delayed release(DR/EC) 20 mg PO DAILY Qty: 90 RF: 0 pregabalin [Lyrica] 150 mg capsule 150 mg PO BID Qty: 60 RF: 4 lidocaine HCl [Aspercreme (lidocaine HCl)] 4 % cream 1 appl topical BID PRN (Reason: pain) Qty: 120 RF: 0 tizanidine 2 mg tablet 2 mg PO BEDTIME PRNRF: 0 acetaminophen 325 mg capsule 325 mg PO QID PRNRF: 0 pyridoxine (vitamin B6) [Vitamin B-6] 100 mg tablet 50 mg PO BID RF: 0 cholecalciferol (vitamin D3) 50 mcg (2,000 unit) capsule 50 mcg PO DAILY RF: 0 carbamazepine 400 mg tablet extended release 12 hr 400 mg PO BID RF: 0 Referrals: Lakshmi Rouse MD [Primary Care Provider] - 2 days Print Language: Swiss
== END 2021-08-16 17:04 | disposition home or self-care (01) ==
PROVIDERS: Emergency Provider Emergency Medicine; PCP Internal Medicine
DX: S39.012A Strain of muscle, fascia and tendon of lower back, initial encounter (principal); X58.XXXA Exposure to other specified factors, initial encounter; Y93.9 Activity, unspecified; Y92.9 Unspecified place or not applicable; Y99.9 Unspecified external cause status
CPT/HCPCS: 99283

== ENCOUNTER 2021-08-18 02:31 | Emergency (ER) | payer MEDICARE, MEDICAID, SELFPAY ==
--- NOTE | ~2021-08-18 | XR_ITS ---
EXAMINATION: XR HIP, LEFT XR PELVIS CLINICAL INFORMATION: Hip pain COMPARISON: None TECHNIQUE: Two views of the left hip. AP view of the left hip. FINDINGS: Bones and soft tissues are normal. No fracture. Alignment is anatomic. Mild bilateral hip joint space narrowing with subchondral sclerosis. 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
[2021-08-18 03:52] VITALS: BP 139/60; PULSE 84; RESP 18; TEMP 36.7; O2SAT 97; BMI 32.8
--- NOTE | 2021-08-18 05:39 | PC.NURSE ---
Pt alert and oriented x4, calm and cooperative. Pt states 8/10 left knee radiating to left hip pain. Pt states pain started Sunday and was seen here for it, o improvement noted. Pt seen by primary MD yesterday and scheduled for outpt MRI. Pt able to ambulate. Pt resting in stretcher at this time, will continue to monitor.
[2021-08-18] MEDS: Acetaminophen 325 MG TABLET 975 MG PO (06:49)
[2021-08-18] MEDS: Ketorolac Tromethamine 15 MG/ML VIAL IM (06:50)
[2021-08-18] MEDS: Lidocaine 4 % Patch ADH..PATCH 1 PATCH TRANSDERMA (06:50)
--- NOTE | 2021-08-18 07:32 | ED.EXTPRO ---
HPI - Extremity Problem General Chief complaint: Extremity Problem Stated complaint: L leg pain Time Seen by Provider: 08/18/21 06:25 Source: patient and family Mode of arrival: ambulatory History of Present Illness HPI Narrative: 65-year-old female with history sciatica comes in with worsening left lower extremity pain that extends from the left buttock down the posterior aspect of her proximal lower extremity without history falls or any other traumatic event and she denies any bowel or bladder dysfunction, fevers, chills. Related Data Home Medications Medication Instructions Recorded Confirmed acetaminophen 325 mg capsule 325 mg PO QID PRN 07/08/20 06/07/21 cholecalciferol (vitamin D3) 50 50 mcg PO DAILY 07/08/20 08/17/21 mcg (2,000 unit) capsule pyridoxine (vitamin B6) 100 mg 50 mg PO BID 07/08/20 08/17/21 tablet (Vitamin B-6) tizanidine 2 mg tablet 2 mg PO BEDTIME PRN 07/08/20 08/17/21 carbamazepine 400 mg 400 mg PO BID 03/24/21 08/17/21 tablet,extended release,12 hr Previous Rx's Medication Instructions Recorded baclofen 10 mg tablet 10 mg PO TID #90 tab 12/21/20 etanercept 50 mg/mL (1 mL) 50 mg SUBCUT QWEEK #4 ml 02/15/21 subcutaneous pen injector hydroxychloroquine 200 mg tablet 200 mg PO BID #60 tab 04/19/21 lidocaine HCl 4 % topical cream 1 appl TOPICAL BID PRN #120 g 05/20/21 (Aspercreme (lidocaine HCl)) naproxen 500 mg tablet 500 mg PO BID PRN #30 tab 07/11/21 omeprazole 20 mg capsule,delayed 20 mg PO DAILY #90 cap 07/11/21 release acetaminophen 500 mg tablet 1,000 mg PO QID PRN #14 tab 08/16/21 (Tylenol Extra Strength) lidocaine 5 % topical patch 1 patch TOPICAL DAILY #15 ea 08/16/21 (Lidoderm) oxycodone 5 mg tablet 5 mg PO Q6H PRN #14 tab 08/16/21 prednisone 20 mg tablet 40 mg PO DAILY 5 Days #10 tab 08/16/21 pregabalin 150 mg capsule (Lyrica) 150 mg PO BID #60 cap 08/16/21 methylprednisolone 4 mg tablets in See Rx Instructions PO PER PKG DIR 08/17/21 a dose pack (Medrol (Yariel)) #21 ea ketorolac 10 mg tablet 10 mg PO Q6H PRN 5 Days #20 tab 08/18/21 Allergies Allergy/AdvReac Type Severity Reaction Status Date / Time No Known Allergies Allergy Verified 08/17/21 11:07 [No Known Allergies*] Review of Systems Review of Systems: Pertinent positives and negatives as stated in HPI 10 point review of systems is otherwise negative. PMFSH Past Medical History Source: nursing notes reviewed Medical History Autoimmune urticaria Cervical spondylosis without myelopathy Fibromyalgia Gastroesophageal reflux disease Hiatal hernia Impaired fasting glucose Insomnia Loose right total knee arthroplasty Morbid obesity due to excess calories Osteoarthritis Rheumatoid arthritis Seronegative rheumatoid arthritis Tailor's bunion of left foot Trigeminal neuralgia of right side of face Surgical History History of bunionectomy of left great toe History of cranioplasty History of laparoscopic cholecystectomy History of shoulder surgery Status post laser lithotripsy of ureteral calculus Status post right knee replacement Family History Family History Father No problems noted. Mother Hypertension Maternal Grandmother No problems noted. Maternal Grandfather No problems noted. Paternal Grandmother No problems noted. Paternal Grandfather No problems noted. Maternal Aunt Diabetes Sister No problems noted. Son No problems noted. Daughter No problems noted. Social History Social History Household Members: Spouse and Other Household Members Other:: mother,daughter Housing: House Alcohol intake: never Patient Tobacco Use Status: Never used Tobacco Advance Directives: No Advance Directives Information Provided: Yes service: No Current occupational status: unemployed Physical Exam Vital Signs: Vital Signs: Last Vital Signs Temp 98.0 F 08/18/21 03:52 Pulse 84 08/18/21 03:52 Resp 18 08/18/21 03:52 BP 139/60 08/18/21 03:52 Pulse Ox 97 08/18/21 03:52 Body Mass Index 32.8 VITAL SIGNS: Reviewed. GENERAL: Well developed, well nourished, in no acute distress. HEAD: Normocephalic/atraumatic EYES: PERRLA, EOMI OROPHARYNX: no oral lesions noted, posterior pharynx clear NECK: Supple, no adenopathy LUNGS: Normal breath sounds. No adventitious sounds or accessory muscle use. SpO2<97> CARDIOVASCULAR: Regular rate and rhythm without noted murmurs ABDOMEN: Soft, non-tender, non-distended with bowel sound LEFT LOWER EXTREMITY: No injury, no deformity, palpable DP/PT, capillary refill less than 3 seconds, full range of motion, but patient with significant tenderness of palpation over sciatic distribution SKIN: Inspection of the skin reveals no rashes NEUROLOGIC: Alert and oriented x 4. Strength and sensation to light touch were grossly intact x 4. Course Course Course Narrative: 65-year-old female with history and clinical presentation most consistent with acute on chronic sciatica with no clinical suspicion for UTI, cauda equina, neurologic etiologies. On reassessment after patient received combination analgesics as well as lidocaine patch she reports significant improvement in her pain and on review of investigations there are no acute findings. Patient was informed all results and findings and understands she will be discharged with further follow-up and to keep her scheduled appointments for today. Discharge Plan Discharge Clinical Impression: Sciatica Patient Disposition: Home, Self-Care Instructions: Sciatica (ED), Lower Back Exercises (ED) Additional Instructions: 1. Reanude todos los medicamentos caseros seg?n lo prescrito. 2. Tylenol 1000 mg, por v?a oral, cada 6 horas seg?n sea necesario para controlar el dolor. No exceda los 4000 mg en 24 horas. 3. Ibuprofeno 400 mg, por v?a oral con leche o alimentos, cada 6 horas seg?n sea necesario para controlar el dolor. Puede robin ibuprofeno con Tylenol para mejorar el alivio de los s?ntomas. 4. Parche de lidoca?na, estos est?n disponibles sin receta en todos los [facility]. Aplique en el ?marianna de m?xima sensibilidad citlalli se indica en el empaque exterior. 5. Edwardo un seguimiento con angeles proveedor de atenci?n primaria para cumplir con todas las citas programadas. Regrese a la love de emergencias por un empeoramiento bam de los s?ntomas. Prescriptions: New ketorolac 10 mg tablet 10 mg PO Q6H PRN (Reason: pain) 5 Days Qty: 20 RF: 0 No Action baclofen 10 mg tablet 10 mg PO TID Qty: 90 RF: 3 etanercept 50 mg/mL (1 mL) pen injector 50 mg subcut QWEEK Qty: 4 RF: 5 hydroxychloroquine 200 mg tablet 200 mg PO BID Qty: 60 RF: 5 naproxen 500 mg tablet 500 mg PO BID PRN (Reason: pain) Qty: 30 RF: 0 omeprazole 20 mg capsule,delayed release(DR/EC) 20 mg PO DAILY Qty: 90 RF: 0 pregabalin [Lyrica] 150 mg capsule 150 mg PO BID Qty: 60 RF: 4 lidocaine HCl [Aspercreme (lidocaine HCl)] 4 % cream 1 appl topical BID PRN (Reason: pain) Qty: 120 RF: 0 lidocaine [Lidoderm] 5 % adhesive patch,medicated 1 patch topical DAILY Qty: 15 RF: 0 prednisone 20 mg tablet 40 mg PO DAILY 5 Days Qty: 10 RF: 0 acetaminophen [Tylenol Extra Strength] 500 mg tablet 1,000 mg PO QID PRN (Reason: fever or pain) Qty: 14 RF: 0 oxycodone 5 mg tablet 5 mg PO Q6H PRN (Reason: pain) Qty: 14 RF: 0 tizanidine 2 mg tablet 2 mg PO BEDTIME PRNRF: 0 acetaminophen 325 mg capsule 325 mg PO QID PRNRF: 0 pyridoxine (vitamin B6) [Vitamin B-6] 100 mg tablet 50 mg PO BID RF: 0 cholecalciferol (vitamin D3) 50 mcg (2,000 unit) capsule 50 mcg PO DAILY RF: 0 methylprednisolone [Medrol (Yariel)] 4 mg tablets,dose pack See Rx Instructions PO PER PKG DIR Qty: 21 RF: 0 carbamazepine 400 mg tablet extended release 12 hr 400 mg PO BID RF: 0 Print Language: Persian
== END 2021-08-18 07:52 | disposition home or self-care (01) ==
PROVIDERS: Emergency Provider Student in an Organized Health Care Education/Training Program
DX: M54.32 Sciatica, left side (principal)
CPT/HCPCS: 73502; 96372; 99283; 99284; J1885

== ENCOUNTER 2021-08-19 10:30 | Outpatient (REF) | payer MEDICARE, MEDICAID, SELFPAY ==
--- NOTE | ~2021-08-19 | XR_ITS ---
EXAMINATION: KNEE X-RAY CLINICAL INFORMATION: Pain COMPARISON: Previous x-rays most recent March 2021 TECHNIQUE: Standing AP view of both knees and lateral and sunrise view of the left knee FINDINGS: Left: Bone alignment is normal. No fracture or dislocation is seen. There is joint space narrowing at the medial femoral tibial joint. There are small osteophytes at the patellofemoral joint. There is a small joint effusion. There is a right knee replacement satisfactory position. XR/XR knee standing BI IMPRESSION: Left knee: Mild arthritis and small joint effusion.
--- NOTE | ~2021-08-19 | XR_ITS ---
EXAMINATION: KNEE X-RAY CLINICAL INFORMATION: Pain COMPARISON: Previous x-rays most recent March 2021 TECHNIQUE: Standing AP view of both knees and lateral and sunrise view of the left knee FINDINGS: Left: Bone alignment is normal. No fracture or dislocation is seen. There is joint space narrowing at the medial femoral tibial joint. There are small osteophytes at the patellofemoral joint. There is a small joint effusion. There is a right knee replacement satisfactory position. XR/XR knee LT 2V IMPRESSION: Left knee: Mild arthritis and small joint effusion.
== END 2021-08-19 10:31 | disposition home or self-care (01) ==
LOC: HO.HOSX 10:30
PROVIDERS: PCP Internal Medicine; Visit Provider Orthopaedic Surgery
DX: M17.12 Unilateral primary osteoarthritis, left knee (principal); M06.9 Rheumatoid arthritis, unspecified; M79.7 Fibromyalgia; M54.9 Dorsalgia, unspecified
CPT/HCPCS: 20610; 73560; 73565; 99212; J1100

== ENCOUNTER 2021-08-25 09:05 | Outpatient (REF) | payer MEDICARE, MEDICAID, SELFPAY ==
--- NOTE | ~2021-08-25 | XR_ITS ---
EXAMINATION: XR LUMBOSACRAL SPINE CLINICAL INFORMATION: Low back pain with sciatica, left side. COMPARISON: Lumbar spine radiographs dated 07/11/2018. TECHNIQUE: Three views of the lumbosacral spine. FINDINGS: There is normal lumbar lordosis and spinal alignment. Mild multilevel degenerative disc disease is seen most pronounced at L4-L5 and L5-S1 without definite change. The vertebral bodies are intact. There is no acute fracture. Mild lumbar levoscoliosis is seen with apex at L2-L3. The soft tissues are unremarkable. Surgical clips overlie the right upper quadrant. XR/XR lumbar spine 2-3V IMPRESSION: Mild multilevel degenerative disc disease without significant change.
== END 2021-08-25 09:06 | disposition home or self-care (01) ==
LOC: HO.HMGCX 09:05
PROVIDERS: PCP Internal Medicine; Visit Provider Internal Medicine
DX: M54.42 Lumbago with sciatica, left side (principal)
CPT/HCPCS: 72100

== ENCOUNTER 2021-09-12 11:00 | Outpatient (RCR) | payer MEDICARE, MEDICAID, SELFPAY ==
--- NOTE | 2021-08-11 15:01 | MHC.PT.EP ---
[facility] [place] [facility] [place] [facility] [place] Office [address] Barrie Pereira [address] [phone] F: [phone] F: [phone] F: [phone] F: [phone] Physical Therapy Plan of Care Date of Evaluation: Date of Surgery: `NA Diagnosis: IMPINGEMENT SYNDROME OF RIGHT SHOULDER M75.41 Assessment: MONO IS A 65 YO FEMALE WHO REPORTS PAIN IN ANTERIOR/SUPERIOR SHOULDER BEGINNING A FEW MONTHS BACK WITHOUT VON AND PREVIOUS PENNY ROTATOR CUFF REPAIRS. IMPAIRMENTS INCLUDE DECREASED SHOULDER ROM AND STRENGTH, ALTERED POSTURE AND POSITIONING, MULTIPLE SOFT TISSUE TRIGGER POINTS AND RESTRICTIONS, INCREASED PAIN. FUNCTIONAL LIMITATIONS ARE REPORTED DIFFICULTY WITH LIFTING, REACHING AND CARRYING, SHE REPORTS HOMEMAKING AND SELF CARE TASKS TAKE ADDITIONAL TIME TO COMPLETE AND REPORTS DISRUPTED SLEEP. SHE REPORTS DECREASED PARTICIPATION IN COMMUNITY AND RECREATIONAL ACTIVITIES. A PT IS A GOOD CANDIDATE FOR SKILLED PT DUE TO AGE, POTENTIAL REMEDIATION OF IMPAIRMENTS, TYPICAL DISEASE/CONDITION PROGRESSION AND PROGNOSIS, COMORBIDITIES, AND MOTIVATION. PT WOULD BENEFIT FROM TAILORED PROGRAM OF THERAPEUTIC ACTIVITIES, FUNCTIONAL TRAINING, GAIT TRAINING, POSTURAL EDUCATION, NEUROMUSCULAR RE-EDUCATION, AND MODALITIES NEEDED. Frequency and Duration: The patient will be seen 2 X WEEK FOR 3 WEEKS THEN REASSESS Short Term Goals: INITIATE HEP AND PROMOTE SELF MANAGEMENT OF SYMPTOMS IN 2 VISITS Usp Goals: Full, pain free ROM in 4 weeks Full UE strength, pain free in 4 weeks To perform homemaking and self care tasks without restriction and pain no greater than 2/10 in [address] at minimum of 5# into cabinet at shoulder height in 4 weeks Treatment Plan: Modalities to reduce pain, spasms and effusion. Manual therapy to restore motion and function. Therapeutic exercise to improve strength and flexibility. Neuromuscular re-education for posture and balance. Therapeutic activities to return to functional activities of daily living. Electronically signed by: CELESTE SHELDON PT,DPT Please sign and return to therapist. Thank you for your referral.
== END 2021-10-13 09:34 | disposition home or self-care (01) ==
LOC: HO.PT 11:00
PROVIDERS: PCP Internal Medicine; Visit Provider Physician Assistant
DX: M75.41 Impingement syndrome of right shoulder (principal)
CPT/HCPCS: 97033; 97110; 97161; 97530; 97535

== ENCOUNTER 2021-09-12 11:48 | Outpatient (REF) | payer MEDICARE, MEDICAID, SELFPAY ==
[2021-09-12 12:13] LABS: MANUAL DIFF FLAG NO
[2021-09-12 12:49] LABS: Basophils Percent Auto 0.7 % (0-2); Eosinophils Absolute Auto 0.1 X10*3/uL (0.0-0.4); Hematocrit 40.1 % (37.0-47.0); Hemoglobin 13.4 g/dl (12.0-16.0); Imm Gran Abs Auto 0.01 X10*3/uL (0.00-0.03); Imm Gran Pct Auto 0.2 % (0.0-0.4); Lymphocytes Absolute Auto 2.5 X10*3/uL (1.2-4.9); Lymphocytes Percent Auto 41.9 % (20-40); Mean Corpuscular HGB Conc 33.4 g/dl (31.0-35.0); Mean Corpuscular Hemoglobin 31.8 pg (27.0-33.0); Mean Platelet Volume 10.5 fL (9.4-12.3); Monocytes Absolute Auto 0.6 X10*3/uL (0.1-1.2); Monocytes Percent Auto 9.7 % (2-11); Neutrophils Absolute Auto 2.7 x10*3/uL (2.0-8.3); Neutrophils Percent Auto 45.5 % (45-73); Platelet Count 143 X10*3/uL (160-400); Red Blood Count 4.22 X10*6/uL (4.20-5.50); Red Cell Distribution Width 12.6 % (11.0-16.0); White Blood Count 5.9 X10*3/uL (4.8-10.8)
[2021-09-12 13:22] LABS: Alanine Aminotransferase 14 U/L (0-31); Albumin Level 3.9 g/dL (3.5-5.0); Alkaline Phosphatase 77 U/L (39-117); Anion Gap 13 (12-20); Aspartate Amino Transferase 17 U/L (5-31); Bilirubin Total 0.3 mg/dL (0.0-1.0); Blood Urea Nitrogen 17 mg/dL (9-16); C Reactive Protein 0.09 mg/dL (< or = 0.50); Calcium 9.1 mg/dL (8.4-10.2); Carbon Dioxide 27 mmol/L (22-29); Chloride 111 mmol/L (96-108); Cholesterol 156 mg/dL; Estimated Glomerular Filt Rate > 60; Glucose Random 97 mg/dL (60-115); HDL Cholesterol 44 mg/dL; LDL Cholesterol Calculated 80 mg/dl; Potassium 4.5 mmol/L (3.3-5.1); Sodium 146 mmol/L (135-145); Total Protein 7.2 g/dL (6.5-8.0); Triglycerides 160 mg/dL
[2021-09-12 13:33] LABS: Erythrocyte Sedimentation Rate 16 MM/HR (0-20)
== END 2021-09-12 11:49 | disposition home or self-care (01) ==
LOC: HO.LAB 11:48
PROVIDERS: Student in an Organized Health Care Education/Training Program; PCP Internal Medicine; Visit Provider Nurse Practitioner Family
DX: Z00.01 Encounter for general adult medical examination with abnormal findings (principal); M06.00 Rheumatoid arthritis without rheumatoid factor, unspecified site; Z78.0 Asymptomatic menopausal state
CPT/HCPCS: 36415; 80053; 80061; 85025; 85652; 86140

== ENCOUNTER → 2021-09-14 09:31 | Outpatient (BNVA) | payer MEDICARE, MEDICAID, SELFPAY | PROVIDERS: PCP Internal Medicine; Visit Provider Physician Assistant | DX: M75.41 Impingement syndrome of right shoulder (principal) | CPT/HCPCS: 99212 ==

== ENCOUNTER 2021-09-20 10:58 | Outpatient (REF) | payer MEDICARE, MEDICAID, SELFPAY ==
--- NOTE | ~2021-09-20 | US_ITS ---
EXAMINATION: US RETROPERITONEAL LIMITED (RENAL ONLY) CLINICAL INFORMATION: Calculus of ureter. COMPARISON: CT abdomen and pelvis 05/20/2021. Renal ultrasound 07/01/2020 and 02/02/2020. TECHNIQUE: Real-time imaging of the kidneys. FINDINGS: RIGHT KIDNEY: 13.3 x 5.3 x 5.2 cm (SAG x AP x TRV). The kidney is normal in size, contour, and echogenicity. Renal cortical thickness is normal. No calculi or focal parenchymal lesions. No hydronephrosis. LEFT KIDNEY: 12.1 x 6.0 x 5.0 cm (SAG x AP x TRV). The kidney is normal in size, contour, and echogenicity. Renal cortical thickness is normal. No calculi or focal parenchymal lesions. No hydronephrosis. There is an echogenic calcification versus stone in the midpole measuring 0.2 x 0.1 with no twinkling seen. There are splenorenal varices seen medial to the left kidney. US/US renal BI IMPRESSION: Question calcification versus stone midpole left kidney measuring 0.2 cm with no twinkling. The right kidney is unremarkable.
== END 2021-09-20 10:59 | disposition home or self-care (01) ==
LOC: HO.US 10:58
PROVIDERS: PCP Internal Medicine; Visit Provider Internal Medicine
DX: N20.1 Calculus of ureter (principal)
CPT/HCPCS: 76775

== ENCOUNTER → 2021-10-03 14:51 | Outpatient (BNVA) | payer MEDICARE, MEDICAID, SELFPAY | PROVIDERS: PCP Internal Medicine; Visit Provider Orthopaedic Surgery | DX: M17.12 Unilateral primary osteoarthritis, left knee (principal); M79.7 Fibromyalgia; R73.01 Impaired fasting glucose | CPT/HCPCS: 99212 ==

== ENCOUNTER 2021-10-12 17:41 | Outpatient (REF) | payer MEDICARE, MEDICAID, SELFPAY ==
--- NOTE | ~2021-10-12 | MR_ITS ---
EXAMINATION: MR SHOULDER WITHOUT CONTRAST, RIGHT CLINICAL INFORMATION: Right shoulder pain and limited range of motion. Impingement syndrome. Surgery in 2016. COMPARISON: None TECHNIQUE: MRI of the shoulder without contrast was performed on a high-field scanner. FINDINGS: ROTATOR CUFF: Mild supraspinatus and infraspinatus tendinosis with distal bursal surface partial tearing of the junctional fibers measuring approximately 1.2 x 1.3 cm (AP by ML). No full-thickness rotator cuff tendon defect. No muscle atrophy or fatty infiltration. BICEPS: Mild proximal long head biceps tendinosis without a measurable tendon defect. CORACOACROMIAL ARCH: The distal acromion appears attenuated with absence of the distal clavicle, consistent with prior acromioplasty and clavicular resection. LABRUM/CAPSULE: Normal. GLENOHUMERAL JOINT/MARROW: Articular cartilage thinning/near full-thickness loss at the superomedial aspect of the humeral head measuring up to 1.0 cm. Tiny marginal osteophytes. Small joint effusion. MR/MR shoulder RT wo con IMPRESSION: 1. Mild supraspinatus and infraspinatus tendinosis with distal bursal surface partial tearing measuring 1.2 x 1.3 cm. No full-thickness rotator cuff tendon tear. 2. Mild proximal long head biceps tendinosis. 3. Probable prior acromioplasty and distal clavicular resection. 4. Mild glenohumeral osteoarthritis and small joint effusion.
== END 2021-10-12 17:42 | disposition home or self-care (01) ==
LOC: HO.MRI 17:41
PROVIDERS: PCP Internal Medicine; Visit Provider Physician Assistant
DX: M75.41 Impingement syndrome of right shoulder (principal); M25.511 Pain in right shoulder
CPT/HCPCS: 73221

== ENCOUNTER → 2021-10-19 10:15 | Outpatient (BNVA) | payer MEDICARE, MEDICAID, SELFPAY | PROVIDERS: PCP Internal Medicine; Visit Provider Nurse Practitioner Family | DX: M06.00 Rheumatoid arthritis without rheumatoid factor, unspecified site (principal); M17.12 Unilateral primary osteoarthritis, left knee; M75.41 Impingement syndrome of right shoulder; Z79.899 Other long term (current) drug therapy; Z96.651 Presence of right artificial knee joint | CPT/HCPCS: 99212 ==

== ENCOUNTER → 2021-10-28 11:20 | Outpatient (BNVA) | payer MEDICARE, MEDICAID, SELFPAY | PROVIDERS: PCP Internal Medicine; Visit Provider Physician Assistant | DX: M75.41 Impingement syndrome of right shoulder (principal); M75.110 Incomplete rotator cuff tear or rupture of unspecified shoulder, not specified as traumatic | CPT/HCPCS: 99212 ==

== ENCOUNTER 2021-11-23 10:47 | Emergency (ER) | payer OTHER, MEDICARE, MEDICAID, SELFPAY ==
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
[2021-11-23 11:18] VITALS: BP 148/70; PULSE 82; RESP 16; TEMP 35.5; O2SAT 97; BMI 32.3
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
[2021-11-23] MEDS: oxyCODONE HCl Immed Release 5 MG TABLET PO (12:09)
[2021-11-23 14:36] VITALS: BP 150/74; PULSE 76; RESP 16; O2SAT 97
[2021-11-23] MEDS: Cyclobenzaprine HCl 10 MG TABLET PO (14:36)
[2021-11-23] MEDS: Ketorolac Tromethamine 15 MG/ML VIAL IM (14:37)
== END 2021-11-23 15:00 | disposition home or self-care (01) ==
PROVIDERS: Emergency Provider Emergency Medicine; PCP Internal Medicine
DX: Z04.1 Encounter for examination and observation following transport accident (principal); M25.511 Pain in right shoulder; M25.521 Pain in right elbow; M25.561 Pain in right knee; M79.671 Pain in right foot
CPT/HCPCS: 73030; 73070; 73564; 73630; 96372; 99284; J1885

== ENCOUNTER → 2021-12-09 10:56 | Outpatient (BNVA) | payer MEDICARE, MEDICAID, SELFPAY | PROVIDERS: PCP Internal Medicine; Visit Provider Orthopaedic Surgery | DX: M17.12 Unilateral primary osteoarthritis, left knee (principal) | CPT/HCPCS: 99212 ==

== ENCOUNTER → 2022-01-05 09:55 | Outpatient (BNVA) | payer MEDICARE, MEDICAID, SELFPAY | PROVIDERS: PCP Internal Medicine; Visit Provider Orthopaedic Surgery | DX: M17.12 Unilateral primary osteoarthritis, left knee (principal) | CPT/HCPCS: 20610; 99212; J7318 ==

== ENCOUNTER → 2022-01-10 14:51 | Outpatient (BNVA) | payer MEDICARE, MEDICAID, SELFPAY | PROVIDERS: PCP Internal Medicine | DX: N20.0 Calculus of kidney (principal) | CPT/HCPCS: 99212 ==

== ENCOUNTER → 2022-01-13 11:28 | Outpatient (BNVA) | payer MEDICARE, MEDICAID, SELFPAY | PROVIDERS: PCP Internal Medicine; Visit Provider Physician Assistant | DX: M75.41 Impingement syndrome of right shoulder (principal); M75.110 Incomplete rotator cuff tear or rupture of unspecified shoulder, not specified as traumatic | CPT/HCPCS: 99212 ==

== ENCOUNTER → 2022-01-16 09:12 | Outpatient (BNVA) | payer MEDICARE, MEDICAID, SELFPAY | PROVIDERS: PCP Internal Medicine; Visit Provider Nurse Practitioner Family | DX: M17.12 Unilateral primary osteoarthritis, left knee (principal); M06.00 Rheumatoid arthritis without rheumatoid factor, unspecified site; M75.41 Impingement syndrome of right shoulder | CPT/HCPCS: 99212 ==

== ENCOUNTER 2022-01-18 07:55 | Day surgery (SDC) | payer MEDICARE, MEDICAID, SELFPAY ==
[2022-01-12 14:12] VITALS: BMI 31.7
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
[2022-01-18] VITALS (12 sets, daily range): BP systolic 99–133; BP diastolic 54–67; PULSE 82–97; RESP 14–22; TEMP 36.3–36.4; O2SAT 95–99
[2022-01-18] MEDS: Lactated Ringers 1,000 ML 100 ML IVCONT (08:39)
--- NOTE | 2022-01-18 10:22 | PM.OP ---
Brief Operative Note Date of Service: 01/18/22 Pre-op diagnosis: right shoulder bursitis Post-op diagnosis: other (right shoulder arthritis, labral tear and sub acromial bursitis) Procedure: RIght shoulder with biceps tenotomy, chondroplasty, labral debridement and bursectomy Surgeon: Peter Matos MD Anesthesia: GETA and regional Was an Equipment Maintenance Superintendent used for this Procedure?: Yes Equipment Maintenance Superintendent: Breanna Fregoso Estimated blood loss (mL): 20 IV fluids (mL): 800 Pathology: none sent Condition: stable Disposition: PACU
--- NOTE | 2022-01-18 10:37 | P.OP_ITS ---
Operative Note Operative Note Date of Service: 01/18/22 Narrative: Date of Service: 01/18/22 Pre-op diagnosis: right shoulder bursitis Post-op diagnosis: other (right shoulder arthritis, labral tear and sub acromial bursitis) Procedure: RIght shoulder with biceps tenotomy, chondroplasty, labral debridement and bursectomy Surgeon: Peter Matos MD Anesthesia: GETA and regional Was an Assistant Manager Of Operations used for this Procedure?: Yes Assistant Manager Of Operations: Breanna Fregoso Estimated blood loss (mL): 20 IV fluids (mL): 800 Pathology: none sent Condition: stable Disposition: PACU Procedure in detail: Patient was brought to the operating room and placed the the beach chair position. All bony prominences were well padded and the limb was prepped and draped in standard sterile fashion. A time out was called to identify proper site, proper procedure and proper surgeon. IV antibiotics per weight were administered. I began by making a posterolateral stab incision with a 15 blade. A blunt trochar was placed into the glenohumeral joint and I insufflated the joint with saline and a 30 degree arthroscope was placed. I established an outside- in anterior portal just distal to the biceps tendon. I then began my inspection of the glenohumeral joint. There was an area of G4 loss of cartilage over the posterosuperior humeral head and G3 over the morris-inferior glenoid. There was a SLAP tear with a hypermobile superior labrum. Subscapularis was intact. There was no full thickness rtc tear. I tenotomized the biceps with the ablation wand and then debrided the superior labrum and the loose friable tissue in the anterior interval. I then removed the trochar and entered the subacromial space. A direct lateral portal was then established and I performed a bursectomy. There was florid bursitis. The cuff was then examined. There was low grade partial tearing of the supraspinatus. Once I was satisfied with the final images were captured and I removed all instrumentation. Portals were closed with nylon. Patient was placed in an abduction sling, extubated and brought to the recovery room in stable condition. There were no known complications.
[2022-01-18] MEDS: fentaNYL citrate/PF 100 MCG/2 ML VIAL 25 MCG IVPUSH ×2 (11:02→11:12)
[2022-01-18] MEDS: Acetaminophen 325 MG TABLET 975 MG PO (11:17)
== END 2022-01-18 12:38 | disposition home or self-care (01) ==
LOC: HO.SSS 07:55
PROVIDERS: PCP Internal Medicine; Visit Provider Orthopaedic Surgery
PROC: (CPT 29805; principal; 2022-01-18 09:40)
DX: M75.41 Impingement syndrome of right shoulder (principal); M75.110 Incomplete rotator cuff tear or rupture of unspecified shoulder, not specified as traumatic; M75.51 Bursitis of right shoulder; M19.011 Primary osteoarthritis, right shoulder; M06.00 Rheumatoid arthritis without rheumatoid factor, unspecified site; M79.7 Fibromyalgia; M47.812 Spondylosis without myelopathy or radiculopathy, cervical region; R73.01 Impaired fasting glucose; L50.1 Idiopathic urticaria; E66.01 Morbid (severe) obesity due to excess calories; Z68.33 Body mass index [BMI] 33.0-33.9, adult; Z96.651 Presence of right artificial knee joint
CPT/HCPCS: 29823; J0171; J0690; J1100; J2250; J2370; J2405; J3010

== ENCOUNTER → 2022-01-26 10:00 | Outpatient (BNVA) | payer MEDICARE, MEDICAID, SELFPAY | PROVIDERS: PCP Internal Medicine; Visit Provider Physician Assistant | DX: Z47.89 Encounter for other orthopedic aftercare (principal) | CPT/HCPCS: 99212 ==

== ENCOUNTER → 2022-02-08 10:16 | Outpatient (BNVA) | payer MEDICARE, MEDICAID, SELFPAY | PROVIDERS: PCP Internal Medicine; Visit Provider Physician Assistant | DX: T81.89XA Other complications of procedures, not elsewhere classified, initial encounter (principal) | CPT/HCPCS: 99212 ==

== ENCOUNTER 2022-02-11 11:18 | Emergency (ER) | payer MEDICARE, MEDICAID, SELFPAY ==
--- NOTE | ~2022-02-11 | XR_ITS ---
EXAMINATION: XR LUMBOSACRAL SPINE CLINICAL INFORMATION: Pain. Injury. COMPARISON: Prior radiographs from 08/25/2021. Abdomen CT from 05/20/2021. TECHNIQUE: Three views of the lumbosacral spine. FINDINGS: The lumbar vertebra have normal height and alignment. No compression fractures. Mild multilevel disc space narrowing, multilevel vertebral osteophyte formation and mild levocurvature of the lumbar spine. No focal lytic or blastic lesion. The sacroiliac joints are intact; no sacral fracture or sacroiliitis. The paraspinal soft tissues are unremarkable. There are cholecystectomy clips in the right upper abdomen. There are old rim calcified aneurysms of the splenic artery in the left upper quadrant. Mild atherosclerotic calcification of the aorta. XR/XR lumbar spine 2-3V IMPRESSION: * No acute abnormalities in the mildly degenerated, levoscoliotic lumbar spine compared to 08/25/2021. There are no compression fractures. Alignment is normal. 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
--- NOTE | ~2022-02-11 | XR_ITS ---
EXAMINATION: XR SHOULDER, RIGHT CLINICAL INFORMATION: Trauma. COMPARISON: 11/23/2021 TECHNIQUE: Three views of the right shoulder. FINDINGS: No acute fracture or dislocation. Minor degenerative changes again noted. No acute soft tissue abnormality seen. No change in the visualized lungs. XR/XR shoulder RT min 2V IMPRESSION: No acute fracture or dislocation.
[2022-02-11 11:47] VITALS: BP 137/62; PULSE 86; RESP 16; TEMP 36; O2SAT 95; BMI 32.1
--- NOTE | 2022-02-11 12:27 | ED_ITS ---
HPI - Extremity Problem General Chief complaint: Extremity Problem Stated complaint: Left arm inj/leg pain/bag pain Time Seen by Provider: 02/11/22 12:26 Source: patient Mode of arrival: ambulatory Limitations: language barrier (Burkinan-speaking requested to use her as interpreted) History of Present Illness HPI Narrative: Patient presents emergency department for evaluation back neck and right shoulder pain. She states that she was in a store when a rack tipped over and fell onto her striking her lower back. She began to fall forward brought her arms for and caught herself. Did not fall or hit her head. Had no loss of consciousness. States that the rack did not hit her neck in any way. Pain is currently diffusely to the lower back. Her neck feels stiff and uncomfortable. States that she recently had rotator cuff surgery to the right shoulder, but after this accident the pain has increased. Denies numbness or tingling to the upper lower extremities. Denies bowel or bladder dysfunction. Denies headache, dizziness, lightheadedness chest pain, shortness of breath, nausea, vomiting, abdominal pain. Related Data Home Medications Medication Instructions Recorded Confirmed cholecalciferol (vitamin D3) 50 50 mcg PO DAILY 07/08/20 01/16/22 mcg (2,000 unit) capsule carbamazepine 400 mg 400 mg PO BID 03/24/21 01/16/22 tablet,extended release,12 hr Previous Rx's Medication Instructions Recorded baclofen 10 mg tablet 10 mg PO TID #90 tab 12/21/20 pregabalin 150 mg capsule (Lyrica) 150 mg PO BID #60 cap 08/16/21 hydroxychloroquine 200 mg tablet 200 mg PO BID #60 tab 11/15/21 cyclobenzaprine 5 mg tablet 10 mg PO TID PRN #14 tab 11/23/21 ketorolac 10 mg tablet 10 mg PO TID 3 Days #9 tab 11/23/21 diclofenac sodium 1 % topical gel 2 g TOPICAL QID #100 g 12/16/21 etanercept 50 mg/mL (1 mL) 50 mg SUBCUT QWEEK #4 ml 12/21/21 subcutaneous pen injector (Zaynab Jaime) omeprazole 20 mg capsule,delayed 20 mg PO DAILY #90 cap 01/09/22 release pyridoxine (vitamin B6) 100 mg 100 mg PO DAILY 90 Days #90 tab 01/10/22 tablet oxycodone 10 mg tablet,crush 10 mg PO BID 3 Days #6 tab 01/18/22 resistant,extended release 12 hr (OxyContin) oxycodone-acetaminophen 5 mg-325 1 tab PO Q6H PRN #28 tab 01/18/22 mg tablet (Percocet) Allergies Allergy/AdvReac Type Severity Reaction Status Date / Time No Known Allergies Allergy Verified 01/26/22 10:04 [No Known Allergies*] Review of Systems Review of Systems: Constitutional: No weight loss, fever, chills, weakness or fatigue. Skin: No rash or itching. Neck: Positive neck pain Cardiovascular: No chest pain, chest pressure or chest discomfort. No palpitations or pedal edema. Respiratory: No shortness of breath, cough or sputum production. Gastrointestinal: No anorexia, nausea, vomiting or diarrhea. No abdominal pain. Genitourinary: No burning micturition. No urinary frequency or incontinence. Musculoskeletal: Positive right shoulder pain. Positive lower back pain. Psychiatric: No depression or anxiety. Yes all other systems are reviewed and are negative [facility] Past Medical History Attestation statement: The following information was validated with the patient. Source: old records reviewed Medical History Autoimmune urticaria Cervical spondylosis without myelopathy Fibromyalgia Gastroesophageal reflux disease Hiatal hernia Impaired fasting glucose Insomnia Kidney stone on left side Loose right total knee arthroplasty Lumbago with sciatica, left side Morbid obesity due to excess calories Osteoarthritis Rheumatoid arthritis Seronegative rheumatoid arthritis Tailor's bunion of left foot Trigeminal neuralgia of right side of face Varices of other sites Varices of other sites Surgical History History of bunionectomy of left great toe History of cranioplasty History of laparoscopic cholecystectomy History of shoulder surgery Status post laser lithotripsy of ureteral calculus Status post right knee replacement Family History Family History Father No problems noted. Mother Hypertension Maternal Grandmother No problems noted. Maternal Grandfather No problems noted. Paternal Grandmother No problems noted. Paternal Grandfather No problems noted. Maternal Aunt Diabetes Sister No problems noted. Son No problems noted. Daughter No problems noted. Social History Social History Household Members: Spouse and Other Household Members Other:: mother,daughter Housing: House Are you a primary critical care clinical nurse specialist to a significant other at home: No Do you presently have visiting nurse or other home services: No Alcohol intake: never Patient Tobacco Use Status: Never used Tobacco e-Cigarette/Vaping Use: Never Used Advance Directives: No Advance Directives Information Provided: No service: No Current occupational status: unemployed Current occupation: rt handed Physical Exam Vital Signs: Vital Signs: Last Vital Signs Temp 96.8 F 02/11/22 11:47 Pulse 86 02/11/22 11:47 Resp 16 02/11/22 11:47 BP 137/62 02/11/22 11:47 Pulse Ox 95 02/11/22 11:47 BMI result Body Mass Index 32.1 Vital signs have been reviewed as normal and appeared to be correct. Blood pressure normal.? Heart rate normal.? Respiration rate normal. Temperature normal.? Oxygen saturation normal. Appearance: Alert.?Oriented to person, place and time. No acute distress.?Normal affect. Eyes: Pupils equal, round and reactive to light.? ENT: Pharynx normal.?? Neck: Normal inspection.? Neck supple.??No palpable midline cervical spine tenderness, step-offs, deformities CVS: Heart sounds normal. Normal heart rate and rhythm.? Pulses normal.?? Respiratory: No respiratory distress.? Lung sounds clear to auscultation bilaterally?? Abdomen: Soft and non-tender. Normoactive bowel sounds. No pulsatile mass.?? Back: No palpable midline lumbar spine tenderness, step-offs, deformities. Positive paraspinal tenderness over the lumbar regions to the coccyx. Straight leg test negative on left and right. No areas of fluctuance, induration, erythema. Skin: Skin warm and dry.? Normal skin color.? Extremities: No lower extremity edema.? Right shoulder with decreased AROM, sling in place. Neuro: Moves all extremities spontaneously. Sensation intact bilaterally. CN II- XII intact. No focal neuro deficits. Ambulates with normal steady gait. Course Course Course Narrative: Patient is a 66-year-old female with a history renal calculi, sciatica, osteoarthritis, rheumatoid arthritis, partial rotator cuff tear status post surgical repair on 01/18/[address] Matos. She presents to the emergency department for evaluation of neck pain, right shoulder pain, and lower back pain after an injury while in a store. No direct injury to cervical spine, no palpable midline cervical tenderness, step-offs, or deformities, no neurological deficits to warrant CT imaging or x-ray at this time. Will obtain x-ray of the right shoulder given her recent surgery and reports of increased pain. Will obtain XR of the lumbar spine to evaluate for fracture or subluxation given direct injury and pain. She has no neurological deficits, bowel or bladder dysfunction to warrant CT or MRI imaging. At this time no concern for cauda equina syndrome, or cord compression. Reevaluation(s) Reevaluation #1: Shoulder x-ray is normal. Discussed this finding with patient, advised her that x-ray imaging is not preferred modality for evaluating for rotator cuff tears. Advised continue with follow-up with her orthopedic provider and to make him aware of her recent injury. Continue pain medications as currently prescribed in the use of her right arm sling. X-ray of the lumbar spine reveals no acute abnormalities, some mild degenerative changes. No compression fractures. 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 Discussed this finding with patient, and she denies of any known history of this, known history of high cholesterol, hypertension, diabetes. Will reach out to vascular on-call for consultation Time: 14:15 Reevaluation #2: I spoke with vascular regeneration operator Dr. Palacio who advised no further interventions at this time, outpatient follow-up within 2 weeks. Patient made aware of this. Discussed reasons to return back to emergency department. All questions were answered. She was discharged home in stable condition. Time: 15:15 MDM - Extremity (Nontraumatic) Medical Records Attestation: I reviewed the patient's medical records. Imaging Data shoulder XR: Radiologist's impression: XR/XR shoulder RT min 2V IMPRESSION: No acute fracture or dislocation. lumbar XR: Radiologist's impression: XR/XR lumbar spine 2-3V IMPRESSION: *? No acute abnormalities in the mildly degenerated, levoscoliotic lumbar spine compared to 08/25/2021. There are no compression fractures. Alignment is normal. *? 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 Discharge Plan Discharge Clinical Impression: Cervical muscle strain, Strain of lumbar paraspinal muscle, Acute shoulder pain due to trauma Patient Disposition: Home, Self-Care Instructions: Cervical Strain (ED), Low Back Strain (ED), R.I.C.E. Treatment (ED), Shoulder Pain (ED), Lower Back Exercises (ED) Additional Instructions: The x-ray of your right shoulder was normal. The x-ray of your lower back did not show any new injury. There was an incidental finding calcification in the splenic artery, for this you will need to follow-up with the vascular specialist outpatient, you have been provided with their contact information please call their office Sunday morning to arrange for follow-up. Please continue taking your current pain medications as prescribed. You can take Tylenol 500 mg, 2 tablets (1,000mg) every 4-6 hours as needed for pain, but not to exceed 3 doses daily (3,000mg). Please follow-up with the orthopedic surgeon regarding your right shoulder, as we discussed if your pain continues to be significantly worse without improvement you may need to have different imaging studies obtained. Please return to the emergency department any new or worsening symptoms or concerns Prescriptions: No Action baclofen 10 mg tablet 10 mg PO TID Qty: 90 3RF pregabalin [Lyrica] 150 mg capsule 150 mg PO BID Qty: 60 4RF hydroxychloroquine 200 mg tablet 200 mg PO BID Qty: 60 5RF diclofenac sodium 1 % gel 2 g topical QID Qty: 100 0RF Rx Instructions: apply to right achilles tendon Enbrel SureClick 50 mg/mL (1 mL) pen injector 50 mg subcut QWEEK Qty: 4 1RF omeprazole 20 mg capsule,delayed release(DR/EC) 20 mg PO DAILY Qty: 90 0RF oxycodone [OxyContin] 10 mg tablet,oral only,ext.rel.12 hr 10 mg PO BID 3 Days Qty: 6 0RF ketorolac 10 mg tablet 10 mg PO TID 3 Days Qty: 9 0RF cyclobenzaprine 5 mg tablet 10 mg PO TID PRN (Reason: muscle spasm) Qty: 14 0RF oxycodone-acetaminophen [Percocet] 5-325 mg tablet 1 tab PO Q6H PRN (Reason: pain) Qty: 28 0RF cholecalciferol (vitamin D3) 50 mcg (2,000 unit) capsule 50 mcg PO DAILY 0RF carbamazepine 400 mg tablet extended release 12 hr 400 mg PO BID 0RF pyridoxine (vitamin B6) 100 mg tablet 100 mg PO DAILY 90 Days Qty: 90 1RF Referrals: Sukhdeep Palacio MD [Physician] - 2 weeks Interventions: ED Discharge Assessment Last Done: 02/11/22 15:25 Discharge Date/Time: 02/11/22 15:26 Print Language: Burkinan
[2022-02-11] MEDS: Acetaminophen 325 MG TABLET 975 MG PO (13:25)
== END 2022-02-11 15:26 | disposition home or self-care (01) ==
PROVIDERS: Emergency Provider Emergency Medicine Emergency Medical Services; PCP Internal Medicine
DX: S16.1XXA Strain of muscle, fascia and tendon at neck level, initial encounter (principal); S39.012A Strain of muscle, fascia and tendon of lower back, initial encounter; G89.11 Acute pain due to trauma; M25.511 Pain in right shoulder; I72.8 Aneurysm of other specified arteries; Z98.890 Other specified postprocedural states; W20.8XXA Other cause of strike by thrown, projected or falling object, initial encounter; Y93.9 Activity, unspecified; Y92.512 Supermarket, store or market as the place of occurrence of the external cause; Y99.9 Unspecified external cause status
CPT/HCPCS: 72100; 73030; 99283; 99284

== ENCOUNTER 2022-02-23 09:03 | Outpatient (REF) | payer MEDICARE, MEDICAID, SELFPAY ==
[2022-02-23 09:25] LABS: MANUAL DIFF FLAG NO
[2022-02-23 09:54] LABS: Basophils Absolute Auto 0.1 X10*3/uL (0.0-0.2); Basophils Percent Auto 1.4 % (0-2); Eosinophils Absolute Auto 0.2 X10*3/uL (0.0-0.4); Eosinophils Percent Auto 3.4 % (0-4); Hematocrit 38.8 % (37.0-47.0); Hemoglobin 12.9 g/dl (12.0-16.0); Lymphocytes Absolute Auto 1.9 X10*3/uL (1.2-4.9); Lymphocytes Percent Auto 43.9 % (20-40); Mean Corpuscular HGB Conc 33.2 g/dl (31.0-35.0); Mean Corpuscular Hemoglobin 31.3 pg (27.0-33.0); Mean Corpuscular Volume 94.2 fL (80.0-98.0); Mean Platelet Volume 10.3 fL (9.4-12.3); Monocytes Absolute Auto 0.5 X10*3/uL (0.1-1.2); Monocytes Percent Auto 10.3 % (2-11); Neutrophils Absolute Auto 1.8 x10*3/uL (2.0-8.3); Platelet Count 147 X10*3/uL (160-400); Red Blood Count 4.12 X10*6/uL (4.20-5.50); White Blood Count 4.4 X10*3/uL (4.8-10.8)
[2022-02-23 10:21] LABS: Alanine Aminotransferase 17 U/L (0-31); Albumin Level 3.9 g/dL (3.5-5.0); Alkaline Phosphatase 73 U/L (39-117); Anion Gap 10 (12-20); Aspartate Amino Transferase 19 U/L (5-31); Bilirubin Total 0.5 mg/dL (0.0-1.0); Blood Urea Nitrogen 13 mg/dL (9-16); C Reactive Protein 0.11 mg/dL (< or = 0.50); Calcium 9.3 mg/dL (8.4-10.2); Carbon Dioxide 28 mmol/L (22-29); Chloride 110 mmol/L (96-108); Estimated Glomerular Filt Rate > 60; Glucose Random 100 mg/dL (60-115); Potassium 4.3 mmol/L (3.3-5.1); Sodium 144 mmol/L (135-145)
[2022-02-23 10:32] LABS: Erythrocyte Sedimentation Rate 10 MM/HR (0-20)
== END 2022-02-23 09:04 | disposition home or self-care (01) ==
LOC: HO.LAB 09:03
PROVIDERS: Absent Provider Urology; PCP Internal Medicine; Visit Provider Nurse Practitioner Family
DX: M75.110 Incomplete rotator cuff tear or rupture of unspecified shoulder, not specified as traumatic (principal); M06.00 Rheumatoid arthritis without rheumatoid factor, unspecified site
CPT/HCPCS: 36415; 80053; 85025; 85652; 86140; 99212

== ENCOUNTER → 2022-02-24 08:53 | Outpatient (BNVA) | payer MEDICARE, MEDICAID, SELFPAY | PROVIDERS: PCP Internal Medicine; Visit Provider Nurse Practitioner Family | DX: M06.00 Rheumatoid arthritis without rheumatoid factor, unspecified site (principal); M17.12 Unilateral primary osteoarthritis, left knee; M75.41 Impingement syndrome of right shoulder | CPT/HCPCS: 99212 ==

== ENCOUNTER → 2022-03-02 10:23 | Outpatient (BNVA) | payer MEDICARE, MEDICAID, SELFPAY | PROVIDERS: PCP Internal Medicine; Visit Provider Surgery Vascular Surgery | DX: I72.8 Aneurysm of other specified arteries (principal) | CPT/HCPCS: 99202 ==

== ENCOUNTER 2022-03-21 08:31 | Outpatient (REF) | payer MEDICARE, MEDICAID, SELFPAY ==
--- NOTE | ~2022-03-21 | CT_ITS ---
EXAMINATION: CT ABDOMEN AND PELVIS WITH CONTRAST CLINICAL INFORMATION: Varicose veins of other specific sites. COMPARISON: CT abdomen 05/20/2021. TECHNIQUE: Multidetector volumetric images were obtained from the superior aspect of the liver through the pubic symphysis following administration 85 mL of Omnipaque 350 intravenous contrast. Sagittal and coronal reformatted images were obtained on the technologist's workstation. Oral contrast: No This CT examination was performed using dose optimization techniques as appropriate, variously including the following: *Automated exposure control *Adjustment of mA and/or kV according to patient size (this includes techniques or standardized protocols for targeted exams where dose is matched to indication/reason for exam; i.e. extremities or head) *Use of iterative reconstruction technique DLP: 396 mGy-cm FINDINGS: LUNG BASES: There is dependent bibasilar minimal atelectatic changes. The heart size is normal. There is mild mural thickening of the GE junction likely esophagitis or hernia. LIVER, GALLBLADDER, AND BILIARY TREE: The liver is normal in size, shape, and diffusely hypoattenuated. No focal hepatic lesion or biliary ductal dilatation is present. The gallbladder has been surgically removed. PANCREAS: Unremarkable. SPLEEN: Unremarkable. ADRENAL GLANDS: Unremarkable. There are numerous varicose vein seen in the splenic hilum and inferior to the spleen secondary to portal venous hypertension. KIDNEYS AND URETERS: The kidneys are normal in size, shape, and attenuation. No hydronephrosis, hydroureter, or calculi seen. No perinephric stranding. BLADDER: Unremarkable. GASTROINTESTINAL TRACT: The small and large bowel are unremarkable. The appendix is unremarkable. ABDOMINAL WALL: No significant hernia is appreciated. LYMPH NODES: Normal. VASCULAR: Unremarkable. PELVIC VISCERA: Anteverted uterus appears unremarkable. OSSEOUS STRUCTURES: Mild degenerative disc changes L4-L5, L5-S1, and L2-L3 disc levels with mild ventral spondylosis. No lytic or sclerotic process seen. CT/CT abdomen pelvis w con IMPRESSION: No acute intra-abdominal process seen. Mild hepatic fatty infiltration with portal venous hypertension resulting in significant varicosity in and around the spleen. Fleischner guidelines were followed.
[2022-03-22] MEDS: iohexoL 350 MG/ML 100 ML INFUS..BTL IV (10:23)
== END 2022-03-21 08:32 | disposition home or self-care (01) ==
LOC: HO.CT 08:31
PROVIDERS: PCP Internal Medicine; Visit Provider Urology
DX: I86.8 Varicose veins of other specified sites (principal)
CPT/HCPCS: 74177; Q9967

== ENCOUNTER → 2022-04-03 12:30 | Outpatient (BNVA) | payer MEDICARE, MEDICAID, SELFPAY | PROVIDERS: PCP Internal Medicine | DX: N20.0 Calculus of kidney (principal) | CPT/HCPCS: Q3014 ==

== ENCOUNTER → 2022-04-13 11:32 | Outpatient (BNVA) | payer MEDICARE, MEDICAID, SELFPAY | PROVIDERS: PCP Internal Medicine; Visit Provider Orthopaedic Surgery | DX: M19.011 Primary osteoarthritis, right shoulder (principal); M17.12 Unilateral primary osteoarthritis, left knee | CPT/HCPCS: 20610; 99212; J1100 ==

== ENCOUNTER 2022-04-21 08:50 | Outpatient (REF) | payer MEDICARE, MEDICAID, SELFPAY ==
--- NOTE | ~2022-04-21 | MM_ITS ---
EXAMINATION: BONE DENSITOMETRY CLINICAL INDICATION: Asymptomatic menopausal state. COMPARISON: Previous BD dated 04/06/2017 and baseline BD dated 10/09/2008. TECHNIQUE: Using a [employer] DXA System (software version: 13.1) manufactured by [employer], dual-energy x-ray absorptiometry was performed of the lumbar spine and left hip. The images are of good technical quality. Summary results are attached. FINDINGS: AP SPINE L1-L4: Current: BMD 1.288 g/cm2, Z-score 2.1, T-score 0.9, normal, 2.6% decrease from previous, 4.2% decrease from baseline (<5% change is not significant). Prior: BMD 1.323 g/cm2. Baseline: BMD 1.345 g/cm2. LEFT FEMUR, NECK: Current: BMD 0.959 g/cm2, Z-score 0.6, T-score -0.6, normal. Prior: BMD 1.026 g/cm2. Baseline: BMD 0.993 g/cm2. LEFT FEMUR, TOTAL: Current: BMD 1.139 g/cm2, Z-score 1.9, T-score 1.0, normal, 3.8% decrease from previous, 4.2% decrease from baseline (<5% change is not significant). Prior: BMD 1.184 g/cm2. Baseline: BMD 1.189 g/cm2. IDENTIFIED RISK FACTORS: Early menopause, secondary osteoporosis, rheumatoid arthritis, osteoporosis. HISTORY OF FRACTURE: None listed. MEDICATIONS: Vitamin D. MM/XR DEXA axial skeleton IMPRESSION: 1. DIAGNOSIS: Normal bone density based on the lowest T-score value of -0.6 in the femoral neck applying World Health Organization criteria. 2. 10-YEAR FRACTURE RISK PREDICTION, FRAX: According to the guidelines, FRAX calculation should only be performed on patients in the osteopenia bone density category. Therefore, FRAX was not performed on this patient. 3. Treatment Recommendations: NOF guidelines recommend consideration for treatment in postmenopausal women and men age 50 and older presenting with the following: -A hip or vertebral (clinical or morphometric) fracture. -T-score less than or equal to -2.5 at the femoral neck or spine after appropriate evaluation to exclude secondary causes. -Low bone mass at the hip or spine and a 10-year fracture probability by FRAX of greater than or equal to 3% for hip fracture or greater than or equal to 20% for major osteoporotic fracture based on the [place] adapted WHO algorithm. 4. Other Recommendations: All treatment decisions require clinical judgment and consideration of individual patient factors, including patient preferences, comorbidities, previous drug use, risk factors not captured in the FRAX model (e.g. frailty, falls, vitamin D deficiency, increased bone turnover, interval significant decline in bone density) and possible under or overestimation of fracture risk by FRAX. FUTURE SCAN RECOMMENDATION: People with diagnosed cases of osteoporosis or at high risk for fracture should have regular bone mineral density tests. For patients eligible for Medicare, routine testing is allowed once every 2 years. The testing frequency can be increased to one year for patients who have rapidly progressing disease, those who are receiving or discontinuing medical therapy to restore bone mass, or have additional risk factors.
== END 2022-04-21 08:51 | disposition home or self-care (01) ==
LOC: HO.MAMMO 08:50
PROVIDERS: Visit Provider Internal Medicine
DX: Z13.820 Encounter for screening for osteoporosis (principal); Z78.0 Asymptomatic menopausal state
CPT/HCPCS: 77080

== ENCOUNTER 2022-05-12 07:25 | Outpatient (REF) | payer MEDICARE, MEDICAID, SELFPAY ==
--- NOTE | ~2022-05-12 | XR_ITS ---
EXAMINATION: XR SHOULDER, RIGHT CLINICAL INFORMATION: Pain. COMPARISON: Radiographs dated 02/11/2022. TECHNIQUE: AP neutral, scapular Y, and axillary views of the right shoulder. FINDINGS: Bony alignment and mineralization are normal. The glenohumeral joint is intact. There is mild peripheral osteophyte formation of the inferior articular surface of the glenohumeral joint. The acromioclavicular and coracoclavicular intervals are normal. No fracture or dislocation is seen. There is no foreign body. No right pneumothorax is seen. XR/XR shoulder RT min 2V IMPRESSION: 1. There is mild osteoarthritic change of the right glenohumeral joint. 2. No fracture or dislocation is seen.
== END 2022-05-12 07:26 | disposition home or self-care (01) ==
LOC: HO.HOSX 07:25
PROVIDERS: Visit Provider Physician Assistant
DX: M25.511 Pain in right shoulder (principal)
CPT/HCPCS: 73030

== ENCOUNTER → 2022-05-12 09:30 | Outpatient (BNVA) | payer MEDICARE, MEDICAID, SELFPAY | PROVIDERS: PCP Internal Medicine; Visit Provider Physician Assistant | DX: M25.511 Pain in right shoulder (principal); M19.011 Primary osteoarthritis, right shoulder; Z98.890 Other specified postprocedural states | CPT/HCPCS: 99212 ==

== ENCOUNTER 2022-05-18 11:28 | Outpatient (REF) | payer MEDICARE, MEDICAID, SELFPAY ==
[2022-05-18 11:45] LABS: MANUAL DIFF FLAG NO
[2022-05-18 12:18] LABS: Basophils Absolute Auto 0.1 X10*3/uL (0.0-0.2); Eosinophils Absolute Auto 0.1 X10*3/uL (0.0-0.4); Eosinophils Percent Auto 2.1 % (0-4); Hematocrit 36.5 % (37.0-47.0); Hemoglobin 12.1 g/dl (12.0-16.0); Lymphocytes Absolute Auto 1.9 X10*3/uL (1.2-4.9); Lymphocytes Percent Auto 37.8 % (20-40); Mean Corpuscular HGB Conc 33.2 g/dl (31.0-35.0); Mean Corpuscular Hemoglobin 30.6 pg (27.0-33.0); Mean Corpuscular Volume 92.4 fL (80.0-98.0); Mean Platelet Volume 10.1 fL (9.4-12.3); Monocytes Absolute Auto 0.5 X10*3/uL (0.1-1.2); Monocytes Percent Auto 9.6 % (2-11); Neutrophils Absolute Auto 2.5 x10*3/uL (2.0-8.3); Neutrophils Percent Auto 49.5 % (45-73); Platelet Count 171 X10*3/uL (160-400); Red Blood Count 3.95 X10*6/uL (4.20-5.50); Red Cell Distribution Width 13.2 % (11.0-16.0); White Blood Count 5.1 X10*3/uL (4.8-10.8)
[2022-05-18 12:39] LABS: Alanine Aminotransferase 16 U/L (0-31); Albumin Level 3.7 g/dL (3.5-5.0); Alkaline Phosphatase 66 U/L (39-117); Anion Gap 12 (12-20); Aspartate Amino Transferase 15 U/L (5-31); Bilirubin Total 0.3 mg/dL (0.0-1.0); Blood Urea Nitrogen 15 mg/dL (9-16); C Reactive Protein 0.07 mg/dL (< or = 0.50); Calcium 8.7 mg/dL (8.4-10.2); Carbon Dioxide 27 mmol/L (22-29); Chloride 112 mmol/L (96-108); Estimated Glomerular Filt Rate > 60; Glucose Random 97 mg/dL (60-115); Potassium 4.6 mmol/L (3.3-5.1); Sodium 146 mmol/L (135-145); Total Protein 6.9 g/dL (6.5-8.0)
[2022-05-18 13:03] LABS: Erythrocyte Sedimentation Rate 20 MM/HR (0-20)
== END 2022-05-18 11:29 | disposition home or self-care (01) ==
LOC: HO.LAB 11:28
PROVIDERS: PCP Internal Medicine; Visit Provider Nurse Practitioner Family
DX: M06.00 Rheumatoid arthritis without rheumatoid factor, unspecified site (principal)
CPT/HCPCS: 36415; 80053; 85025; 85652; 86140

== ENCOUNTER 2022-05-26 11:15 | Outpatient (REF) | payer MEDICARE, MEDICAID, SELFPAY ==
[2022-05-26 11:48] LABS: MANUAL DIFF FLAG NO
[2022-05-26 12:43] LABS: Basophils Absolute Auto 0.1 X10*3/uL (0.0-0.2); Basophils Percent Auto 1.2 % (0-2); Eosinophils Absolute Auto 0.1 X10*3/uL (0.0-0.4); Eosinophils Percent Auto 2.3 % (0-4); Hematocrit 39.3 % (37.0-47.0); Hemoglobin 13.3 g/dl (12.0-16.0); Imm Gran Abs Auto 0.01 X10*3/uL (0.00-0.03); Imm Gran Pct Auto 0.2 % (0.0-0.4); Lymphocytes Percent Auto 47.4 % (20-40); Mean Corpuscular HGB Conc 33.8 g/dl (31.0-35.0); Mean Corpuscular Hemoglobin 31.1 pg (27.0-33.0); Mean Platelet Volume 10.4 fL (9.4-12.3); Monocytes Absolute Auto 0.3 X10*3/uL (0.1-1.2); Monocytes Percent Auto 7.7 % (2-11); Neutrophils Absolute Auto 1.8 x10*3/uL (2.0-8.3); Neutrophils Percent Auto 41.2 % (45-73); Platelet Count 156 X10*3/uL (160-400); Red Blood Count 4.27 X10*6/uL (4.20-5.50); Red Cell Distribution Width 13.3 % (11.0-16.0); White Blood Count 4.3 X10*3/uL (4.8-10.8)
[2022-05-26 13:08] LABS: Alanine Aminotransferase 16 U/L (0-31); Albumin Level 4.1 g/dL (3.5-5.0); Alkaline Phosphatase 72 U/L (39-117); Anion Gap 14 (12-20); Aspartate Amino Transferase 16 U/L (5-31); Bilirubin Total 0.6 mg/dL (0.0-1.0); Blood Urea Nitrogen 8 mg/dL (9-16); C Reactive Protein 0.03 mg/dL (< or = 0.50); Calcium 9.2 mg/dL (8.4-10.2); Carbon Dioxide 26 mmol/L (22-29); Chloride 107 mmol/L (96-108); Estimated Glomerular Filt Rate > 60; Glucose Random 117 mg/dL (60-115); Potassium 4.1 mmol/L (3.3-5.1); Sodium 143 mmol/L (135-145); Total Protein 7.5 g/dL (6.5-8.0)
[2022-05-26 14:01] LABS: Erythrocyte Sedimentation Rate 13 MM/HR (0-20)
== END 2022-05-26 11:16 | disposition home or self-care (01) ==
LOC: HO.LAB 11:15
PROVIDERS: PCP Internal Medicine; Visit Provider Nurse Practitioner Family
DX: M06.9 Rheumatoid arthritis, unspecified (principal)
CPT/HCPCS: 36415; 80053; 85025; 85652; 86140

== ENCOUNTER 2022-05-29 09:21 | Outpatient (REF) | payer MEDICARE, MEDICAID, SELFPAY ==
--- NOTE | ~2022-05-29 | XR_ITS ---
EXAMINATION: XR TEMPOROMANDIBULAR JOINT, BILATERAL CLINICAL INFORMATION: Rheumatoid arthritis. COMPARISON: None TECHNIQUE: 4 views of the temporomandibular joints. FINDINGS: Visualization of the temporomandibular joints is unfortunately limited on these images. They appear appropriately aligned on the frontal view. The paranasal sinuses are well aerated. XR/XR TMJ BI IMPRESSION: Limited evaluation of the temporomandibular joints on these images. Alignment appears to be appropriate on the frontal view. The open and closed mouth views are limited.
== END 2022-05-29 09:22 | disposition home or self-care (01) ==
LOC: HO.XRAY 09:21
PROVIDERS: PCP Internal Medicine; Visit Provider Nurse Practitioner Family
DX: M06.00 Rheumatoid arthritis without rheumatoid factor, unspecified site (principal); M17.12 Unilateral primary osteoarthritis, left knee; M75.41 Impingement syndrome of right shoulder; M26.629 Arthralgia of temporomandibular joint, unspecified side; D70.9 Neutropenia, unspecified; Z79.899 Other long term (current) drug therapy; Z96.651 Presence of right artificial knee joint
CPT/HCPCS: 70330; 99212

== ENCOUNTER → 2022-06-21 11:05 | Outpatient (REF) | payer MEDICARE, MEDICAID, SELFPAY ==
--- NOTE | 2022-06-21 11:10 | ECG_ITS ---
Test Reason : preop Blood Pressure : / mmHG Vent. Rate : 079 BPM Atrial Rate : 079 BPM P-R Int : 144 ms QRS Dur : 084 ms QT Int : 380 ms P-R-T Axes : 053 036 029 degrees QTc Int : 435 ms Normal sinus rhythm Normal ECG When compared with ECG of 15-JUN-2019 22:46, No significant change was found Referred By: Peter Matos Electronically Signed By:LINDA TRAORE
== END ==
LOC: HO.CARD 11:05
PROVIDERS: PCP Internal Medicine; Visit Provider Internal Medicine
DX: Z01.810 Encounter for preprocedural cardiovascular examination (principal)
CPT/HCPCS: 93005

== ENCOUNTER 2022-06-23 08:42 | Outpatient (REF) | payer MEDICARE, MEDICAID, SELFPAY ==
[2022-06-23 08:59] LABS: MANUAL DIFF FLAG NO
[2022-06-23 09:07] LABS: Basophils Absolute Auto 0.1 X10*3/uL (0.0-0.2); Eosinophils Absolute Auto 0.1 X10*3/uL (0.0-0.4); Eosinophils Percent Auto 1.9 % (0-4); Hematocrit 41.1 % (37.0-47.0); Hemoglobin 13.7 g/dl (12.0-16.0); Imm Gran Abs Auto 0.01 X10*3/uL (0.00-0.03); Imm Gran Pct Auto 0.2 % (0.0-0.4); Lymphocytes Absolute Auto 1.9 X10*3/uL (1.2-4.9); Lymphocytes Percent Auto 36.1 % (20-40); Mean Corpuscular HGB Conc 33.3 g/dl (31.0-35.0); Mean Corpuscular Hemoglobin 31.3 pg (27.0-33.0); Mean Corpuscular Volume 93.8 fL (80.0-98.0); Mean Platelet Volume 9.5 fL (9.4-12.3); Monocytes Absolute Auto 0.5 X10*3/uL (0.1-1.2); Monocytes Percent Auto 9.8 % (2-11); Neutrophils Absolute Auto 2.7 x10*3/uL (2.0-8.3); Platelet Count 143 X10*3/uL (160-400); Red Blood Count 4.38 X10*6/uL (4.20-5.50); Red Cell Distribution Width 13.2 % (11.0-16.0); White Blood Count 5.2 X10*3/uL (4.8-10.8)
[2022-06-23 09:33] LABS: Alanine Aminotransferase 15 U/L (0-31); Anion Gap 15 (12-20); Aspartate Amino Transferase 18 U/L (5-31); Blood Urea Nitrogen 19 mg/dL (9-16); Calcium 8.9 mg/dL (8.4-10.2); Carbon Dioxide 25 mmol/L (22-29); Chloride 107 mmol/L (96-108); Estimated Glomerular Filt Rate > 60; Glucose Fasting 102 mg/dL (60-99); Potassium 4.2 mmol/L (3.3-5.1); Sodium 143 mmol/L (135-145)
== END 2022-06-23 08:43 | disposition home or self-care (01) ==
LOC: HO.LAB 08:42
PROVIDERS: PCP Internal Medicine; Visit Provider Internal Medicine
DX: Z01.818 Encounter for other preprocedural examination (principal); K21.9 Gastro-esophageal reflux disease without esophagitis; M19.90 Unspecified osteoarthritis, unspecified site; M17.12 Unilateral primary osteoarthritis, left knee
CPT/HCPCS: 36415; 80048; 84450; 84460; 85025

== ENCOUNTER → 2022-06-26 12:53 | Outpatient (BNVA) | payer MEDICARE, MEDICAID, SELFPAY | PROVIDERS: PCP Internal Medicine; Visit Provider Physician Assistant | DX: M19.011 Primary osteoarthritis, right shoulder (principal); Z98.890 Other specified postprocedural states | CPT/HCPCS: 99212 ==

== ENCOUNTER 2022-06-28 10:00 | Outpatient (RCR) | payer MEDICARE, MEDICAID, SELFPAY ==
--- NOTE | 2022-01-26 13:14 | MHC.PT.EP ---
[facility] [place] Office [place] Office [place] [facility] [address] Barrie Pereira [address] [phone] F: [phone] F: [phone] F: [phone] F: [phone] Physical Therapy Plan of Care Date of Evaluation: Date of Surgery: 01/18/22 Diagnosis: RIght SHoulder with biceps tenotomy, chondroplasty, labral debridement and bursectomy Assessment: 66 YO FEMALE REF TO PT S/P Rt SH SURGERY 01/18/22 (RIght SHoulder with biceps tenotomy, chondroplasty, labral debridement and bursectomy). 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 OBJECTIVELY, Pt HAS LIMITED ROM, (+) SOFT TISSUE TENDERNESS, DECR POSTURE, AND PAIN IN Rt SH. FUNCTIONALLY, Pt IS LIMITED W ADLs REQ 2 HANDS- AND HAS BEEN USING HER LEFT UE. SHE IS IN A SLING, WHICH SHE WAS CLEARED OF TODAY, TO DISCONTINUE. Pt WOULD BENEFIT FROM PT TO ADDRESS THE ABOVE FINDINGS, PAIN MGMT, DEV SELF- SX MGMT STRATEGIES, AND ASSIST Pt IN HER PO COURSE TO MAXIMIZE FUNCTIONAL INDEPENDENCE. Frequency and Duration: The patient will be seen 2 x WK x 8 WkS Short Term Goals: *Pt'S Rt SH PAIN DECR TO 2-3/10 IN 2 WKS *Pt DEMON IMPROVED AROM Rt SH IN 3 WKS *INCREASE ACTIVATION OF POST RC/ SCAPULAR MM/ IMPROVE POSTURAL AWARENESS IN 3 WKS Fpc Goals: Pt INDEP W HEP PROGRESSION AND SELF-SX MGMT STRATEGIES IN 8 WKS Pt RESUME REG ADLs EVIDENT W IMPROVED SPADI SCORE BY 8-10 POINTS IN 8 WKS Pt INCR Rt UE STRENGTH BY 1 GRADE IN 8 WKS Treatment Plan: Modalities to reduce pain, spasms and effusion. Manual therapy to restore motion and function. Therapeutic exercise to improve strength and flexibility. Neuromuscular re-education for posture and balance. Therapeutic activities to return to functional activities of daily living. Electronically signed by: Dionne Smith, PT Please sign and return to therapist. Thank you for your referral.
== END 2022-07-27 12:42 | disposition home or self-care (01) ==
LOC: HO.PT 10:00
PROVIDERS: Visit Provider Physician Assistant
DX: M75.41 Impingement syndrome of right shoulder (principal); M75.110 Incomplete rotator cuff tear or rupture of unspecified shoulder, not specified as traumatic
CPT/HCPCS: 97110; 97140; 97161; 97530

== ENCOUNTER → 2022-07-03 09:57 | Outpatient (BNVA) | payer MEDICARE, MEDICAID, SELFPAY | PROVIDERS: PCP Internal Medicine; Visit Provider Physician Assistant | DX: K76.6 Portal hypertension (principal) | CPT/HCPCS: 99202; 99212 ==

== ENCOUNTER 2022-07-04 14:37 | Outpatient (REF) | payer MEDICARE, MEDICAID, SELFPAY | END 2022-07-04 14:38 | disposition home or self-care (01) | LOC: HO.LNP 14:37 | PROVIDERS: Visit Provider Physician Assistant | DX: M17.12 Unilateral primary osteoarthritis, left knee (principal) | CPT/HCPCS: 81219; 81270; 81279; 81339 ==

== ENCOUNTER 2022-07-06 10:57 | Day surgery (SDC) | payer MEDICARE, MEDICAID, SELFPAY ==
--- NOTE | 2022-07-05 13:00 | P.CONAN_ITS ---
Documented by User: Sharmin Senior NP 07/05/22 13:03 HPI - Anesthesia Eval Consult details Narrative: 66yo F for Upper Endoscopy Scheduled for Lt TKA 07/11/22, GI eval to optimize prior to total joint trigeminal neuralgia s/p cranioplasty back pain with radiation to b/l LE autoimmune urticaria PMFSH Active Problems Active Problems: All Active Problems (Updated 07/04/22 @ 14:36 by Jody Cotton PA-C) Nephrolithiasis (Acute) Impingement syndrome of right shoulder (Acute) Back pain (Acute) Localized osteoarthritis of left knee (Acute) Partial tear of rotator cuff (Acute) Varices of other sites (Acute) Other specified acquired deformities of musculoskeletal system (Acute) Osteoarthritis of left knee (Acute) Arthritis of right shoulder region (Acute) Trigeminal neuralgia of right side of face (Acute) Portal hypertension (Acute) Portal hypertension (Acute) Splenic artery aneurysm (Acute) Low back pain at multiple sites (Acute) Varices of other sites (Acute) Kidney stone on left side (Acute) Lumbago with sciatica, left side (Acute) Trigeminal neuralgia of right side of face (Acute) Seronegative rheumatoid arthritis (Acute) Morbid obesity due to excess calories (Acute) Autoimmune urticaria (Acute) Cervical spondylosis without myelopathy (Acute) Insomnia (Acute) Impaired fasting glucose (Acute) Osteoarthritis (Acute) Fibromyalgia (Acute) Tailor's bunion of left foot (Acute) Hiatal hernia (Acute) Gastroesophageal reflux disease (Acute) Past Medical History Medical History (Updated 07/04/22 @ 14:36 by Jody Cotton PA-C) Autoimmune urticaria Cervical spondylosis without myelopathy Fibromyalgia Gastroesophageal reflux disease Hiatal hernia Impaired fasting glucose Insomnia Kidney stone on left side Loose right total knee arthroplasty Low back pain at multiple sites Lumbago with sciatica, left side Morbid obesity due to excess calories Osteoarthritis Renal calculi Seronegative rheumatoid arthritis Shoulder pain, right Sleep apnea Splenic artery aneurysm Tailor's bunion of left foot Trigeminal neuralgia of right side of face Varices of other sites Family History Family History Father No problems noted. Mother Hypertension Maternal Grandmother No problems noted. Maternal Grandfather No problems noted. Paternal Grandmother No problems noted. Paternal Grandfather No problems noted. Maternal Aunt Diabetes Sister No problems noted. Son No problems noted. Daughter No problems noted. Family history of problems with anesthesia: No Surgical History Surgical History (Updated 07/04/22 @ 11:51 by Yenni Charles RN) History of arthroscopy of right shoulder History of bunionectomy of left great toe History of colonoscopy History of cranioplasty History of laparoscopic cholecystectomy History of shoulder surgery Status post laser lithotripsy of ureteral calculus Status post right knee replacement History of Problems with Anesthesia: No Social History Social History Household Members: Spouse and Other Household Members Other:: mother,daughter Housing: House Are you a primary lawn care specialist to a significant other at home: No 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) Alcohol intake: never Patient Tobacco Use Status: Never used Tobacco e-Cigarette/Vaping Use: Never Used Use of substances other than those prescribed or required for medical reasons: No Are you DNR?: No Advance Directives: No Advance Directives Information Provided: Yes service: No Current occupational status: unemployed Current occupation: rt handed Cognitive needs: No Hearing needs: No Vision needs: No Meds Allergies Allergy/AdvReac Type Severity Reaction Status Date / Time No Known Allergies Allergy Verified 07/03/22 10:06 [No Known Allergies*] Home Medications Medication Instructions Recorded Confirmed Last Taken Type carbamazepine 400 mg 400 mg PO BID 03/24/21 07/04/22 01/18/22 06:30 History tablet,extended release,12 hr cholecalciferol (vitamin D3) 50 5,000 unit PO DAILY 06/29/22 07/04/22 Unknown History mcg (2,000 unit) capsule pregabalin 25 mg capsule 0 mg PO 06/29/22 Unknown History pregabalin 150 mg capsule 1 cap PO BID 07/04/22 07/04/22 Unknown History Exam Exam Date and Time: July 05, 2022 1300 Height,Weight and Vital Signs: Height 5 ft 1 in Weight 77.4 kg Last Vital Signs Pulse 79 07/04/22 12:02 Resp 20 07/04/22 12:02 BP 138/71 07/04/22 12:02 Pulse Ox 96 07/04/22 12:02 O2 Del Method 07/04/22 12:02 Pertinent Lab Results Pertinent Lab Results: Laboratory Tests 06/23/22 06/23/22 08:57 08:57 WBC 5.2 Hgb 13.7 Hct 41.1 Plt Count 143 L Sodium 143 Potassium 4.2 Chloride 107 Carbon Dioxide 25 BUN 19 H D Creatinine 0.76 Narrative Narrative: EKG 06/2022 Vent. Rate : 079 BPM ? ? Atrial Rate : 079 BPM ?? P-R Int : 144 ms? QRS Dur : 084 ms ? ? QT Int : 380 ms ? ? ? P-R-T Axes : 053 036 029 degrees ?? QTc Int : 435 ms ? Normal sinus rhythm Normal ECG When compared with ECG of 15-JUN-2019 22:46, No significant change was found Airway Mallampati Class: II TM Dist: >3cm Neck ROM: Full Loose/Missing/Broken Teeth: No Heart: RRR Lungs: Fine crackles bilateral lower lobes, did not clear with cough. Instructed on cough/deep breathing. IS given and educated Assessment and Plan Assessment Anesthesia Assessment: Anesthesia Plan Discussed and PAT Visit Final Anesthetic Review Family History of Problems with Anesthesia: No History of Problems with Anesthesia: No Documented by User: Geetha Upton MD 07/06/22 11:49 [facility] Past Medical History Medical History (Updated 07/04/22 @ 14:36 by Jody Cotton PA-C) Autoimmune urticaria Cervical spondylosis without myelopathy Fibromyalgia Gastroesophageal reflux disease Hiatal hernia Impaired fasting glucose Insomnia Kidney stone on left side Loose right total knee arthroplasty Low back pain at multiple sites Lumbago with sciatica, left side Morbid obesity due to excess calories Osteoarthritis Renal calculi Seronegative rheumatoid arthritis Shoulder pain, right Sleep apnea Splenic artery aneurysm Tailor's bunion of left foot Trigeminal neuralgia of right side of face Varices of other sites Family History Family History Father No problems noted. Mother Hypertension Maternal Grandmother No problems noted. Maternal Grandfather No problems noted. Paternal Grandmother No problems noted. Paternal Grandfather No problems noted. Maternal Aunt Diabetes Sister No problems noted. Son No problems noted. Daughter No problems noted. 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) Alcohol intake: never Patient Tobacco Use Status: Never used Tobacco e-Cigarette/Vaping Use: Never Used Use of substances other than those prescribed or required for medical reasons: No Are you DNR?: No Advance Directives: No Advance Directives Information Provided: Yes service: No Current occupational status: unemployed Current occupation: rt handed Cognitive needs: No Hearing needs: No Vision needs: No Meds Allergies Allergy/AdvReac Type Severity Reaction Status Date / Time No Known Allergies Allergy Verified 07/03/22 10:06 [No Known Allergies*] Home Medications Medication Instructions Recorded Confirmed Last Taken Type carbamazepine 400 mg 400 mg PO BID 03/24/21 07/04/22 01/18/22 06:30 History tablet,extended release,12 hr cholecalciferol (vitamin D3) 50 5,000 unit PO DAILY 06/29/22 07/04/22 Unknown History mcg (2,000 unit) capsule pregabalin 25 mg capsule 0 mg PO 06/29/22 Unknown History pregabalin 150 mg capsule 1 cap PO BID 07/04/22 07/04/22 Unknown History Exam Airway Mallampati Class: III Assessment and Plan Assessment Anesthesia Assessment: Chart Reviewed Final Anesthetic Review NPO: Yes ASA Class: III Final Preanesthetic Review: No Changes in Pt Med Stat, Meds/Allgs Chart Reviewed, Consent Obtained/Reviewed and Anes Risks/Benef Reviewed Patient Risk: Intermediate Procedure Risk: Low Anesthetic Plan Anesthetic Plan: MAC: Disposition: Standard PACU
[2022-07-06] VITALS (7 sets, daily range): BP systolic 84–144; BP diastolic 51–78; PULSE 71–88; RESP 13–16; TEMP 35.9–36.3; O2SAT 89–98; BMI 31.9
[2022-07-06] MEDS: Lactated Ringers 1,000 ML 50 ML IVCONT (11:48)
--- NOTE | 2022-07-06 11:50 | MHC.SHP ---
Pre-Procedural Eval Section A Date of Service: 07/06/22 Section B Chief Complaint: Gastro-esophageal reflux disease without esophagit Details of Present Illness: portal hypertension Relevant Family History (Specify if Yes): No Relevant Social History: None Present Medications: see Short Stay Collaborative assessment Medical History: Significant History (Autoimmune urticaria Cervical spondylosis without myelopathy Fibromyalgia Gastroesophageal reflux disease Hiatal hernia Impaired fasting glucose Insomnia Kidney stone on left side Loose right total knee arthroplasty Low back pain at multiple sites Lumbago with sciatica, left side Morbid obesity due ) History of Previous Operations: Relevant previous surgery/procedure and date(s) (History of arthroscopy of right shoulder History of bunionectomy of left great toe History of colonoscopy History of cranioplasty History of laparoscopic cholecystectomy History of shoulder surgery Status post laser lithotripsy of ureteral calculus Status post right knee replacement) Allergies: Allergies Allergy/AdvReac Type Severity Reaction Status Date / Time No Known Allergies Allergy Verified 07/03/22 10:06 [No Known Allergies*] Review of Systems Sugical H&P ROS: Negative: Constitution, Cardiovascular, Respiratory, Neurological, Psychiatric, Hem-Onc, Allergic/Immunologic, Gastrointestinal, Genitourinary, Musculoskeletal, Integumentary, Endocrine and Eyes/Ears/Nose/Throat Exam Surgical H&P Exam: Normal: HEENT, Normal: Heart, Normal: Lungs, Normal: Extremities, Normal: Abdomen, Normal: Skin and Normal: Neurological Plan Diagnosis/Plan: Unchanged I have reviewed the history and physical and performed a pertinent physical examination on my patient. No changes have occurred unless specified.
--- NOTE | 2022-07-06 11:56 | W.PM.OPN ---
Operative Note Operative Note Date of Service: 07/06/22 Narrative: Procedure Description: EGD Indication: dysphagia and portal hypertension Anesthesia: MAC FLEXIBLE TRANSORAL UPPER GASTROINTESTINAL ENDOSCOPY UPPER ENDOSCOPY Consent: Indications for the procedure and potential complications of bleeding, perforation, reaction to medications and missed diagnosis were discussed with the patient and informed consent was obtained. Instrument: Olympus GIF H 190 J mid size upper endoscope Monitoring: Vital signs and clinical assessment, continuous EKG monitoring, Pulse oximetry, Carbon Dioxide monitoring and blood pressure monitoring were done throughout the procedure. Procedure: The patient was placed in the left lateral decubitis position and pre-procedure medications were administered and a bite block was placed. The endoscope was inserted into the mouth and advanced under direct vision to the third part of duodenum. A careful inspection was made as the upper endoscope was withdrawn including a retroflexed examination of the proximal stomach; Findings and interventions are described below. Findings: Larynx:normal Esophagus: GE junction at 37 cm, diaphragm hiatus at 37 cm, bogginess and erythema at GEJ consistent with esophagitis with some narrowing and schatzki ring noted. bx taken, dilation to 17 mm with small tear seen. UES also dilated to 17 mm, no tear seen. bx also taken from distal and proximal esophagus, no varices seen Stomach: Patchy gastric erythema. Biopsies were obtained. Grade 2 flap valve on retroflexed examination of the cardia. fundic gland appearing polyps noted, some were biopsied. Duodenum: Normal bulb and descending duodenum, bx taken Intervention: Biopsies as noted above, balloon dilation Impression/Findings: fundic gland polyps esophagitis schatzki ring, obstructive PLAN: await bx results can consider increasing PPi dose ok to go for orthopedic surgery next week, no varices seen or evidence of portal hypertensive gastropathy.
== END 2022-07-06 14:33 | disposition home or self-care (01) ==
PROVIDERS: PCP Internal Medicine; Visit Provider Internal Medicine Gastroenterology
PROC: 0DJ08ZZ Inspection of Upper Intestinal Tract, Via Natural or Artificial Opening Endoscopic (ICD-10-PCS; CPT 43235; principal; 2022-07-06 13:00)
DX: K21.9 Gastro-esophageal reflux disease without esophagitis (principal); R13.10 Dysphagia, unspecified; K76.6 Portal hypertension; K20.80 Other esophagitis without bleeding; K31.7 Polyp of stomach and duodenum; K22.2 Esophageal obstruction; K44.9 Diaphragmatic hernia without obstruction or gangrene; L50.8 Other urticaria; M79.7 Fibromyalgia; M06.00 Rheumatoid arthritis without rheumatoid factor, unspecified site; R73.01 Impaired fasting glucose; G47.00 Insomnia, unspecified; E66.01 Morbid (severe) obesity due to excess calories; Z68.31 Body mass index [BMI] 31.0-31.9, adult; Z79.899 Other long term (current) drug therapy
CPT/HCPCS: 43249; 43239; 88305; 88342; C1726

== ENCOUNTER → 2022-07-10 14:01 | Outpatient (BNVA) | payer MEDICARE, MEDICAID, SELFPAY | PROVIDERS: PCP Internal Medicine; Visit Provider Physician Assistant | DX: M17.12 Unilateral primary osteoarthritis, left knee (principal) | CPT/HCPCS: 99212 ==

== ENCOUNTER 2022-07-11 05:55 | Inpatient (IN) | payer MEDICARE, MEDICAID, SELFPAY ==
[2022-07-04 12:02] VITALS: BP 138/71; PULSE 79; RESP 20; O2SAT 96; BMI 32.2
--- NOTE | 2022-07-04 12:24 | HO.ANESPROP2 ---
Documented by User: Sharmin Senior NP 07/10/22 10:54 HPI - Anesthesia Eval Consult details Narrative: 66yo F for Left Knee Replacement Total PCP cleared with referral to GI for abdominal bloating Eval by GI with EGD 07/06/22 - no varices or portal htn - ok for TKR trigeminal neuralgia s/p cranioplasty back pain with radiation to b/l LE autoimmune urticaria PMFSH Active Problems Active Problems: All Active Problems (Updated 07/04/22 @ 11:53 by Yenni Charles RN) Nephrolithiasis (Acute) Impingement syndrome of right shoulder (Acute) Back pain (Acute) Localized osteoarthritis of left knee (Acute) Partial tear of rotator cuff (Acute) Varices of other sites (Acute) Other specified acquired deformities of musculoskeletal system (Acute) Osteoarthritis of left knee (Acute) Arthritis of right shoulder region (Acute) Trigeminal neuralgia of right side of face (Acute) Portal hypertension (Acute) Portal hypertension (Acute) Splenic artery aneurysm (Acute) Low back pain at multiple sites (Acute) Varices of other sites (Acute) Kidney stone on left side (Acute) Lumbago with sciatica, left side (Acute) Trigeminal neuralgia of right side of face (Acute) Seronegative rheumatoid arthritis (Acute) Morbid obesity due to excess calories (Acute) Autoimmune urticaria (Acute) Cervical spondylosis without myelopathy (Acute) Insomnia (Acute) Impaired fasting glucose (Acute) Osteoarthritis (Acute) Fibromyalgia (Acute) Tailor's bunion of left foot (Acute) Hiatal hernia (Acute) Gastroesophageal reflux disease (Acute) Past Medical History Medical History Positional lightheadedness Lumbago with sciatica, right side Recurrent kidney stones Sleep apnea Renal calculi Splenic artery aneurysm Shoulder pain, right Low back pain at multiple sites Varices of other sites Kidney stone on left side Lumbago with sciatica, left side Trigeminal neuralgia of right side of face Seronegative rheumatoid arthritis Nephrolithiasis Loose right total knee arthroplasty Gastroesophageal reflux disease Hiatal hernia Tailor's bunion of left foot Fibromyalgia Osteoarthritis Impaired fasting glucose Insomnia Cervical spondylosis without myelopathy Autoimmune urticaria Morbid obesity due to excess calories Family History Family History Father Emphysema of lung Mother Hypertension Maternal Grandmother No problems noted. Maternal Grandfather No problems noted. Paternal Grandmother No problems noted. Paternal Grandfather No problems noted. Maternal Aunt Diabetes Sister No problems noted. Son No problems noted. Daughter No problems noted. Family history of problems with anesthesia: No Surgical History Surgical History History of esophagogastroduodenoscopy (EGD) History of colonoscopy History of arthroscopy of right shoulder History of laparoscopic cholecystectomy Status post laser lithotripsy of ureteral calculus History of bunionectomy of left great toe History of cranioplasty History of shoulder surgery Status post right knee replacement History of Problems with Anesthesia: No Social History Household Members: Spouse and Other Household Members Other:: mother,daughter Housing: House Are you a primary post acute care registered nurse to a significant other at home: No Do you 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) Alcohol intake: never Patient Tobacco Use Status: Never used Tobacco e-Cigarette/Vaping Use: Never Used Advance Directives: No Advance Directives Information Provided: No service: No Current occupational status: unemployed Current occupation: rt handed Cognitive needs: No Hearing needs: No Vision needs: No Narrative Narrative: No recent illness No CP/SOB within limits of pain Some abdominal bloating, referred to GI, will have EGD prior to TKA Meds Allergies Allergy/AdvReac Type Severity Reaction Status Date / Time No Known Allergies Allergy Verified 08/29/23 11:48 [No Known Allergies*] Home Medications Medication Instructions Recorded Confirmed Last Taken Type pregabalin 150 mg capsule 1 cap PO BID 07/04/22 08/27/23 01/31/23 History carbamazepine 200 mg tablet 400 mg PO BID 07/10/22 08/27/23 01/31/23 History pregabalin 25 mg capsule 25 mg PO BID 10/05/22 08/27/23 01/31/23 History Exam Exam Date and Time: July 04, 2022 1224 Height,Weight and Vital Signs: Height 5 ft 1 in Weight 77.4 kg Last Vital Signs Pulse 79 07/04/22 12:02 Resp 20 07/04/22 12:02 BP 138/71 07/04/22 12:02 Pulse Ox 96 07/04/22 12:02 O2 Del Method 07/04/22 12:02 Pertinent Lab Results Pertinent Lab Results: Laboratory Tests 06/23/22 06/23/22 08:57 08:57 WBC 5.2 Hgb 13.7 Hct 41.1 Plt Count 143 L Sodium 143 Potassium 4.2 Chloride 107 Carbon Dioxide 25 BUN 19 H D Creatinine 0.76 Narrative Narrative: EKG 06/2022 Vent. Rate : 079 BPM ? ? Atrial Rate : 079 BPM ?? P-R Int : 144 ms? QRS Dur : 084 ms ? ? QT Int : 380 ms ? ? ? P-R-T Axes : 053 036 029 degrees ?? QTc Int : 435 ms ? Normal sinus rhythm Normal ECG When compared with ECG of 15-JUN-2019 22:46, No significant change was found Airway Mallampati Class: II TM Dist: >3cm Neck ROM: Full Loose/Missing/Broken Teeth: No Heart: RRR Lungs: Fine crackles bilateral lower lobes, did not clear with cough. Instructed on cough/deep breathing. IS given Assessment and Plan Assessment Anesthesia Assessment: Anesthesia Plan Discussed and PAT Visit (Incentive spirometer and education provided.) Final Anesthetic Review Family History of Problems with Anesthesia: No History of Problems with Anesthesia: No Documented by User: Nando Feng MD 08/31/23 00:46 [facility] Past Medical History Medical History Positional lightheadedness Lumbago with sciatica, right side Recurrent kidney stones Sleep apnea Renal calculi Splenic artery aneurysm Shoulder pain, right Low back pain at multiple sites Varices of other sites Kidney stone on left side Lumbago with sciatica, left side Trigeminal neuralgia of right side of face Seronegative rheumatoid arthritis Nephrolithiasis Loose right total knee arthroplasty Gastroesophageal reflux disease Hiatal hernia Tailor's bunion of left foot Fibromyalgia Osteoarthritis Impaired fasting glucose Insomnia Cervical spondylosis without myelopathy Autoimmune urticaria Morbid obesity due to excess calories Family History Family History Father Emphysema of lung Mother Hypertension Maternal Grandmother No problems noted. Maternal Grandfather No problems noted. Paternal Grandmother No problems noted. Paternal Grandfather No problems noted. Maternal Aunt Diabetes Sister No problems noted. Son No problems noted. Daughter No problems noted. 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) Alcohol intake: never Patient Tobacco Use Status: Never used Tobacco e-Cigarette/Vaping Use: Never Used Advance Directives: No Advance Directives Information Provided: No service: No Current occupational status: unemployed Current occupation: rt handed Cognitive needs: No Hearing needs: No Vision needs: No Meds Allergies Allergy/AdvReac Type Severity Reaction Status Date / Time No Known Allergies Allergy Verified 08/29/23 11:48 [No Known Allergies*] Home Medications Medication Instructions Recorded Confirmed Last Taken Type pregabalin 150 mg capsule 1 cap PO BID 07/04/22 08/27/23 01/31/23 History carbamazepine 200 mg tablet 400 mg PO BID 07/10/22 08/27/23 01/31/23 History pregabalin 25 mg capsule 25 mg PO BID 10/05/22 08/27/23 01/31/23 History Exam Airway Loose/Missing/Broken Teeth: Yes Assessment and Plan Assessment Anesthesia Assessment: Chart Reviewed Final Anesthetic Review NPO: Yes ASA Class: III Final Preanesthetic Review: Meds/Allgs Chart Reviewed, Consent Obtained/Reviewed and Anes Risks/Benef Reviewed Patient Risk: Intermediate Procedure Risk: Intermediate Anesthetic Plan Anesthetic Plan: Spinal, Neuraxial Block: and Regional Block Disposition: Standard PACU
[2022-07-04 13:30] LABS: MANUAL DIFF FLAG NO
[2022-07-04 14:07] LABS: MRSA Nasal PCR NEGATIVE (Negative); SA Nasal PCR NEGATIVE (Negative)
[2022-07-04 14:18] LABS: Basophils Absolute Auto 0.1 X10*3/uL (0.0-0.2); Basophils Percent Auto 0.9 % (0-2); Eosinophils Absolute Auto 0.1 X10*3/uL (0.0-0.4); Eosinophils Percent Auto 1.6 % (0-4); Hematocrit 43.4 % (37.0-47.0); Hemoglobin 14.1 g/dl (12.0-16.0); Imm Gran Abs Auto 0.01 X10*3/uL (0.00-0.03); Imm Gran Pct Auto 0.2 % (0.0-0.4); Lymphocytes Absolute Auto 2.3 X10*3/uL (1.2-4.9); Lymphocytes Percent Auto 39.3 % (20-40); Mean Corpuscular HGB Conc 32.5 g/dl (31.0-35.0); Mean Corpuscular Hemoglobin 30.7 pg (27.0-33.0); Mean Corpuscular Volume 94.3 fL (80.0-98.0); Mean Platelet Volume 10.3 fL (9.4-12.3); Monocytes Absolute Auto 0.5 X10*3/uL (0.1-1.2); Monocytes Percent Auto 8.7 % (2-11); Neutrophils Absolute Auto 2.8 x10*3/uL (2.0-8.3); Neutrophils Percent Auto 49.3 % (45-73); Platelet Count 155 X10*3/uL (160-400); Red Cell Distribution Width 13.4 % (11.0-16.0); White Blood Count 5.7 X10*3/uL (4.8-10.8)
[2022-07-04 14:36] LABS: Anion Gap 18 (12-20); Blood Urea Nitrogen 15 mg/dL (9-16); Calcium 9.3 mg/dL (8.4-10.2); Carbon Dioxide 26 mmol/L (22-29); Chloride 108 mmol/L (96-108); Creatinine Clr Calc Pharmacy 71.3; Estimated Glomerular Filt Rate > 60; Glucose Random 85 mg/dL (60-115); Potassium 4.5 mmol/L (3.3-5.1); Sodium 147 mmol/L (135-145)
[2022-07-11] VITALS (21 sets, daily range): BP systolic 105–146; BP diastolic 55–79; PULSE 65–95; RESP 12–22; TEMP 36.2–36.9; O2SAT 93–99
--- NOTE | ~2022-07-11 | XR_ITS ---
EXAMINATION: XR KNEE, LEFT CLINICAL INFORMATION: Left knee TKA COMPARISON: 08/19/2021 left knee radiographs. TECHNIQUE: Four views of the left knee. FINDINGS: The patient is status post left knee arthroplasty showing good anatomic alignment and no evidence for hardware malfunction. There is no acute fracture. Intra-articular and subcutaneous air is noted. Multiple surgical skin sergio are seen anteriorly. XR/XR knee LT 2V IMPRESSION: Postoperative changes without overt hardware abnormality.
--- OUTSIDE RECORDS SUMMARY | 2022-07-11 06:05 | XMS_ITS | Continuity of Care Document ---
:1955 Author Organization [facility] Address Unavailable , Care Team Providers Name Role Phone Padma MAYO, Lakshmi Schmidt Primary Care Physician [place] [facility] [place]21 [facility] Attending Physician: Louis Jackson Admitting Physician: Louis Jackson Referring Physician: Louis Jackson Allergies, Adverse Reactions, Alerts Substance Reaction Severity Status NKA Active Medications acetaminophen 325 mg oral tablet 975 mg, By Mouth, Every 4 hours, PRN, not to exceed 4000 mg/day, Refills 0, Maintenance, Pain , Mild, 01/19/21 15:05:00 EDT, Partial fill upon patient request if the prescription is for a schedule II opioid drug. Start Date: 01/19/21 Status: OrderedBaclofen = 10 mg, By Mouth, 3 times a day, 0 Refills, Maintenance, 01/17/21 13:13:00 EDT, Partial fill upon patient request if the prescription is for a schedule II opioid drug. Start Date: 01/17/21 Status: OrderedcarBAMazepine 400 mg oral tablet, extended release 400 mg, 1, tablet, By Mouth, 2 times a day, # 180 tablet, Refills 3, Tot. Refills 3, Maintenance, 03/29/21 11:07:00 EDT, Route to Pharmacy Electronically, [facility] #[id number], Please write instructions in Setswana, 154.94, cm, 03/29/21 10:40:00... Start Date: 03/29/21 Status: Ordereddiclofenac 1% topical gel = 2 Gm, Topically, 4 times a day, 0 Refills, Maintenance, 02/25/21 9:16:00 EDT, Partial fill upon patient request if the prescription is for a schedule II opioid drug. Start Date: 02/25/21 Status: OrderedEnbrel See Instructions, 50 mg Subcutaneous Infusion once a week on sunday, 0 Refills, Maintenance, 01/17/21 13:09:00 EDT, Partial fill upon patient request if the prescription is for a schedule II opioid drug. Start Date: 01/17/21 Status: Orderedhydroxychloroquine 200 mg oral tablet 200 mg, 1, tablet, By Mouth, 2 times a day, Refills 0, Maintenance, 05/08/17 10:57:49 Start Date: 05/08/17 Status: Orderedomeprazole 20 mg oral delayed release tablet 1 tablet = 20 mg, By Mouth, Daily, 0 Refills, Maintenance, 05/08/17 10:58:26 Start Date: 05/08/17 Status: Orderedoxycodone 5mg oxycodone 5mg, Refills 0, Maintenance, 02/25/21 9:15:00 EDT, Supply Start Date: 02/25/21 Status: OrderedPredniSONE By Mouth, Daily, 0 Refills, Maintenance, 03/29/21 10:41:00 EDT, Partial fill upon patient request ifthe prescription is for a schedule II opioid drug. Start Date: 03/29/21 Status: OrderedPregabalin = 100 mg, By Mouth, 2 times a day, 0 Refills, Maintenance, 01/17/21 13:12:00 EDT, Partial fill upon patient request if the prescription is for a schedule II opioid drug. Start Date: 01/17/21 Status: Orderedpregabalin 150 mg oral capsule 1 capsule = 150 mg, By Mouth, 2 times a day, 0 Refills, Maintenance, 02/25/21 9:16:00 EDT, Partial fill upon patient request if the prescription is for a schedule II opioid drug. Start Date: 02/25/21 Status: OrderedtiZANidine 2 mg oral tablet 4 mg, 2, tablet, By Mouth, Every 8 hours, Refills 0, Maintenance, 02/25/21 9:16:00 EDT, Partial fillupon patient request if the prescription is for a schedule II opioid drug. Start Date: 02/25/21 Status: OrderedVitamin D3 By Mouth, 2000 units, 0 Refills, Maintenance, 05/08/17 10:58:47 Start Date: 05/08/17 Status: Ordered Problem List Condition Effective Dates Status Health Status Informant Splenic varices(Confirmed) Active Facial pain(Confirmed) Active GERD (gastroesophageal reflux Active disease)(Confirmed) Dyspepsia(Confirmed) Active Fatty liver disease, Active nonalcoholic(Confirmed) Obesity (BMI 30-39.9)(Confirmed) Active
--- OUTSIDE RECORDS SUMMARY | 2022-07-11 06:05 | XMS_ITS | Continuity of Care Document ---
:1955 Author Organization [facility] Address Unavailable , Care Team Providers Name Role Phone Pdama MAYO, Lakshmi Schmidt Primary Care Physician [phone] [place] [facility] [place] 02/22/22 - 03/24/22 [facility] Allergies, Adverse Reactions, Alerts No Known Allergies Medications acetaminophen 325 mg oral tablet 975 [...] 03/29/21 11:07:00 EDT, Route to Pharmacy Electronically, [facility] #[id number], Please write instructions in Egyptian, 154.94, cm, 03/29/21 10:40:00... Start Date: 03/29/21 [...] II opioid drug. Start Date: 03/29/21 Status: Orderedpregabalin 150 mg oral capsule 1 capsule = 150 mg, By Mouth, 2 times a day, # 60 capsule, 5 Refills, Maintenance, 02/23/22 16:22:00EDT, Capsule, [facility] #[id number], Partial fill upon patient request if the prescription is for a schedule II opioid drug., 154.94, cm, ... Start Date: 02/23/22 Status: OrderedtiZANidine 2 mg oral tablet 4 [...] pain(Confirmed) Active GERD (gastroesophageal reflux Active disease)(Confirmed) Hypoxia(Confirmed) Active Dyspepsia(Confirmed) Active Fatty liver disease, Active nonalcoholic(Confirmed) Obese class I(Confirmed) Active Obesity (BMI 30-39.9)(Confirmed) Active Obstructive sleep apnea(Confirmed) Active
--- OUTSIDE RECORDS SUMMARY | 2022-07-11 06:05 | XMS_ITS | Continuity of Care Document ---
:1955 Author Organization [facility] Address [address] [place] [address]- Care Team Providers Name Role Phone Padma MAYO, Lakshmi Schmidt Primary Care Physician [place] [facility] 01/19/21 - 01/19/[address] [address]- Discharge Disposition: A-D/C Home Attending Physician: Wilfredo Lopez MD Admitting Physician: Wilfredo Lopez MD Referring Physician: Wilfredo Lopez MD Allergies, Adverse Reactions, Alerts Substance Reaction Severity [...] opioid drug. Start Date: 01/17/21 Status: OrderedcarBAMazepine 100 mg oral tablet, chewable 100 mg, 1, tablet, Chew, 2 times a day, # 60 tablet, Refills 0, Tot. Refills 0, Maintenance, 01/19/21 15:03:00 EDT, Route to Pharmacy Electronically, [facility] #[id number], Partial fill upon patient request if the prescription is for a schedule... Start Date: 01/19/21 Stop Date: 02/18/21 Status: OrderedEnbrel See Instructions, 50 mg Subcutaneous [...] Maintenance, 05/08/17 10:58:26 Start Date: 05/08/17 Status: OrderedoxyCODONE 5 mg oral tablet 5 mg, 1, tablet, By Mouth, Every 6 hours, PRN, for 3 days, # 12 tablet, Refills 0, Tot. Refills 0, Acute 01/22/21 15:05:00 EDT, Pain , Mild, 01/19/21 15:05:00 EDT, Route to Pharmacy Electronically, [facility] #[id number], Partial fill upon patien... Start Date: 01/19/21 Stop Date: 01/22/21 Status: OrderedOxyCODONE IR Tablet 5 mg, Tablet, By Mouth, Every 4 hours, in PACU ONLY, if patient can tolerate PO, PRN for Pain , Mild, Routine, 01/19/21 10:37:00 EDT Start Date: 01/19/21 Stop Date: 01/20/21 Status: DiscontinuedPregabalin = 100 mg, By Mouth, 2 times a day, 0 Refills, Maintenance, 01/17/21 13:12:00 EDT, Partial fill upon patient request if the prescription is for a schedule II opioid drug. Start Date: 01/17/21 Status: OrderedVitamin D3 By Mouth, 2000 units, 0 Refills, Maintenance, 05/08/17 10:58:47 Start Date: 05/08/17 Status: Ordered Problem List Condition Effective Dates Status Health Status Informant Splenic varices(Confirmed) Active Facial pain(Confirmed) Active GERD (gastroesophageal reflux Active disease)(Confirmed) Dyspepsia(Confirmed) Active Fatty liver disease, Active nonalcoholic(Confirmed) Obesity (BMI 30-39.9)(Confirmed) Active Vital Signs Most recent to oldest 1 2 3 [Reference Range]: Height 154.94 cm 154.94 cm (01/19/21 8:47 AM) (01/17/21 1:34 PM) Weight 76.82 kg 76.82 kg (01/19/21 8:47 AM) (01/17/21 1:34 PM) Oxygen Saturation [94-100 95 % 96 % 97 % %] (01/19/21 2:00 PM) (01/19/21 1:45 PM) (01/19/21 1:3 0 PM) Pulse Rate [55-90 bpm] 84 bpm (01/19/21 8:47 AM) Body Mass Index 32 32 [18.5-24.99] *>HHI* *>HHI* (01/19/21 8:47 AM) (01/17/21 1:34 PM) Blood Pressure 101/69 mm Hg 103/56 mm Hg 105/63 mm Hg [90-138/55-84 mm Hg] (01/19/21 2:00 PM) (01/19/21 1:45 PM) ( 1:30 PM) Respiratory Rate [16-30 17 br/min 18 br/min 11 br/mi n br/min] (01/19/21 2:08 PM) (01/19/21 2:00 PM) *L* (01/19/21 1:45 PM ) Temperature [96.8-100.4 97.9 DegF 97.0 DegF 97.2 Deg F DegF] (01/19/21 2:00 PM) (01/19/21 11:00 AM) (01/19/21 8: 47 AM) Liters per Minute 2 L/min 2 L/min 2 L/min (01/19/21 1:15 PM) (01/19/21 1:00 PM) (01/19/21 12: 45 PM) Mode of Delivery (Oxygen) Room air Room air Room a ir (01/19/21 2:45 PM) (01/19/21 2:00 PM) (01/19/21 1:4 5 PM) Blood pressure sites Arm, right Arm, right Arm, right (01/19/21 2:00 PM) (01/19/21 1:45 PM) (01/19/21 1:3 0 PM) Temperature Route Temporal Temporal Temporal (01/19/21 2:00 PM) (01/19/21 11:00 AM) (01/19/21 8: 47 AM) Dry Weight 76.7 kg 76.82 kg (01/19/21 8:47 AM) (01/17/21 1:34 PM) Weight Obtained Via Standing scale (01/19/21 8:47 AM) Dry Weight Obtained Via Standing scale Patient/family stated (01/19/21 8:47 AM) (01/17/21 1:34 PM)
--- OUTSIDE RECORDS SUMMARY | 2022-07-11 06:05 | XMS_ITS | Continuity of Care Document ---
:1955 Author Organization [address], [address] [place] [address]- Care Team Providers Name Role Phone Padma MAYO, Lakshmi Schmidt Primary Care Physician [place] [facility] [place] 01/10/21 - 02/09/[address], [address] [place], [place] [address] Allergies, Adverse Reactions, Alerts Substance Reaction Severity [...] Status: OrderedcarBAMazepine 100 mg oral tablet, chewable 1, tablet, By Mouth, 2 times a day, CHEW AND SWALLOW., # 180 tablet, Refills 0, Tot. Refills 0, Maintenance, 02/03/21 10:23:00 EDT, Route to Pharmacy Electronically, [facility] #[id number], 154.94, cm, 01/19/21 8:58:00 EDT, Height, 76.7, kg, 01/06... Start Date: 02/03/21 Status: OrderedEnbrel See Instructions, 50 mg Subcutaneous [...] Maintenance, 05/08/17 10:58:26 Start Date: 05/08/17 Status: OrderedPregabalin = 100 mg, By Mouth, [...]
--- OUTSIDE RECORDS SUMMARY | 2022-07-11 06:05 | XMS_ITS | Continuity of Care Document ---
:1955 Author Organization [address], [address] [place] [address]- Care Team Providers Name Role Phone Padma MAYO, Lakshmi Schmidt Primary Care Physician [phone] [place] [facility] [place]/25/21 - 02/24/[address], [address] [place], [place] [address] Allergies, Adverse Reactions, Alerts Substance Reaction [...] 02/03/21 10:23:00 EDT, Route to Pharmacy Electronically, [facility] #[id number], 154.94, cm, 01/19/21 8:58:00 EDT, Height, 76.7, kg, 01/06... Start Date: 02/03/21 Status: Orderedcarbamazepine 200 mg oral capsule, extended release 1 capsule = 200 mg, By Mouth, 2 times a day, # 60 capsule, 0 Refills, Maintenance, 02/11/21 14:47:00EDT, CR Capsule, [id number], Partial fill upon patient request if the prescription is for a schedule II opioid drug., 154.94, cm, .. Start Date: 02/11/21 Stop Date: 03/13/21 Status: OrderedEnbrel See Instructions, 50 mg Subcutaneous [...]
--- OUTSIDE RECORDS SUMMARY | 2022-07-11 06:05 | XMS_ITS | Continuity of Care Document ---
:1955 Author Organization [facility] Address [address] [place] [address]- Care Team Providers Name Role Phone Padma MAYO, Lakshmi Schmidt Primary Care Physician [phone] Encounter [facility] [place] Date(s): 02/07/22 - 03/09/[address] [facility] [address] [address]- Attending Physician: Louis Jackson Admitting Physician: Louis Jackson Referring Physician: AdmtrLouis Allergies, Adverse Reactions, Alerts No Known Allergies [...] 03/29/21 11:07:00 EDT, Route to Pharmacy Electronically, [facility] #[id number], Please write instructions in Zambian, 154.94, cm, 03/29/21 10:40:00... Start Date: 03/29/21 [...] capsule, 5 Refills, Maintenance, 02/23/22 16:22:00EDT, Capsule, [facility] #[id number], Partial fill upon patient request if the [...]
--- OUTSIDE RECORDS SUMMARY | 2022-07-11 06:05 | XMS_ITS | Continuity of Care Document ---
:1955 Author Organization [facility] Address [address] [place] [address]- Care Team Providers Name Role Phone Padma MAYO, Lakshmi Schmidt Primary Care Physician [phone] Encounter [facility] [place] Date(s): 05/16/22 - 06/15/[address] [address]- Attending Physician: Louis Jackson Admitting Physician: Louis [...] II opioid drug. Start Date: 01/17/21 Status: Ordereddiclofenac 1% topical gel = 2 [...] Mouth, 2 times a day, # 180 capsule, 0 Refills, Maintenance, 06/01/22 9:23:00EDT, Capsule, [facility] #[id number], Instructions in Gambian please. MassPAT checked, 154.94, cm, 02/28/22 10:22:00 EDT, Height, 76.7, kg, 01/19... Start Date: 06/01/22 Status: Orderedpregabalin 25 mg oral capsule See Instructions, Take one 25mg cap PO in addition to usual morning dose of pregabalin x 1 week. Then, add one 25mg cap PO to evening dose for a total of 175mg BID, # 60 capsule, 0 Refills, Maintenance, 06/01/22 9:23:00 EDT, [facility] #[id number]... Start Date: 06/01/22 Status: OrderedtiZANidine 2 mg oral tablet 4 [...] (BMI 30-39.9)(Confirmed) Active Obstructive sleep apnea(Confirmed) Active Social History Social History Type Response Smoking Status Never (less than 100 in life time) entered on: 06/02/22 Sex Care Team PersonnelName: Padma MAYO , Lakshmi Schmidt Address: [facility] [place], [place] [address]
--- OUTSIDE RECORDS SUMMARY | 2022-07-11 06:05 | XMS_ITS | Continuity of Care Document ---
:1955 Author Organization [facility] Address [address] [place] [address], [address] [place] [address], [address] [place] [address]- Care Team Providers Name Role Phone Padma MAYO, Lakshmi Schmidt Primary Care Physician En[place] [facility] [place] Date(s): 02/03/21 - 05/18/21 [facility] [address] [place] [address], 3rd [facility], [address] [place] [address] Attending Physician: Peace Diez MD Admitting Physician: Peace Diez MD Referring Physician: Wilfredo Lopez MD Allergies, [...] 03/29/21 11:07:00 EDT, Route to Pharmacy Electronically, [facility] #[id number], Please write instructions in Upper Sorbian, 154.94, cm, 03/29/21 10:40:00... Start Date: 03/29/21 [...]
--- OUTSIDE RECORDS SUMMARY | 2022-07-11 06:05 | XMS_ITS | Continuity of Care Document ---
:1955 Author Organization [facility] Address [address] [place] [address], [address] [place] [address], [address] [place] [address]- Care Team Providers Name Role Phone Padma MAYO, Lakshmi Schmidt Primary Care Physician En[place] [facility] [place](s): 04/18/21 - 05/18/21 [facility] [address] [place] [address], 3rd [facility], [address] [place] [address] Attending Physician: Louis Jackson Admitting Physician: AdmLouis eduardo Referring Physician: Admtr ArDiana Allergies, Adverse Reactions, Alerts Substance Reaction Severity [...] 03/29/21 11:07:00 EDT, Route to Pharmacy Electronically, [facility] #[id number], Please write instructions in German, 154.94, cm, 03/29/21 10:40:00... Start Date: 03/29/21 [...]
--- OUTSIDE RECORDS SUMMARY | 2022-07-11 06:06 | XMS_ITS | Continuity of Care Document ---
:1955 Author Organization [facility] Address Unavailable , Care Team Providers Name Role Phone Padma MAYO, Lakshmi Schmidt Primary Care Physician [phone] [place] [facility] [place] Date(s): 02/23/22 - 03/25/22 [facility] Allergies, Adverse Reactions, Alerts No [...] 03/29/21 11:07:00 EDT, Route to Pharmacy Electronically, [facility] #[id number], Please write instructions in Hungarian, 154.94, cm, 03/29/21 10:40:00... Start Date: 03/29/21 [...] capsule, 5 Refills, Maintenance, 02/23/22 16:22:00EDT, Capsule, [facility] #[id number], Partial fill upon patient request if the [...]
--- OUTSIDE RECORDS SUMMARY | 2022-07-11 06:06 | XMS_ITS | Continuity of Care Document ---
:1955 Author Organization [facility] Address Unavailable , Care Team Providers Name Role Phone Padma MAYO, Lakshmi Schmidt Primary Care Physician [phone] [place] [facility] [place]s): 02/28/22 - 03/30/22 [facility] Attending Physician: Louis Jackson Admitting Physician: Louis Jackson Referring Physician: Louis Jackson Allergies, Adverse Reactions, Alerts No Known Allergies [...] 03/29/21 11:07:00 EDT, Route to Pharmacy Electronically, [facility] #[id number], Please write instructions in Citizen Of [place], 154.94andrew, 03/29/21 10:40:00... Start Date: 03/29/21 Status: Ordereddiclofenac [...] capsule, 5 Refills, Maintenance, 02/23/22 16:22:00EDT, Capsule, [facility] #[id number], Partial fill upon patient request if the prescription is for a schedule II opioid drug., 154.94, cm, 02/07/... Start Date: 02/23/22 Status: OrderedtiZANidine 2 mg [...]
--- OUTSIDE RECORDS SUMMARY | 2022-07-11 06:06 | XMS_ITS | Continuity of Care Document ---
:1955 Author Organization [facility] Address [address] [place] [address]- Care Team Providers Name Role Phone Padma MAYO, Lakshmi Schmidt Primary Care Physician [phone] [id number] Date(s): 05/12/22 - 06/15/[address] [address]- Attending Physician: Kimmy Rowell MD Admitting Physician: Kimmy Rowell MD Allergies, Adverse Reactions, Alerts No Known Allergies [...] capsule, 0 Refills, Maintenance, 06/01/22 9:23:00EDT, Capsule, [facility] #[id number], Instructions in Latvian please. MassPAT checked, 154.94, cm, 02/28/22 10:22:00 EDT, Height, 76.7, kg, 01/19... Start Date: 06/01/22 Status: Orderedpregabalin 25 mg oral capsule See Instructions, Take one 25mg cap PO in addition to usual morning dose of pregabalin x 1 week. Then, add one 25mg cap PO to evening dose for a total of 175mg BID, # 60 capsule, 0 Refills, Maintenance, 06/01/22 9:23:00 EDT, [facility] #[id number]... Start Date: 06/01/22 Status: [...] PersonnelName: Padma MAYO , Lakshmi Schmidt Address: [address] [place] [address]
--- OUTSIDE RECORDS SUMMARY | 2022-07-11 06:06 | XMS_ITS | Continuity of Care Document ---
:1955 Author Organization [facility] Address Unavailable , Care Team Providers Name Role Phone Padma MAYO, Lakshmi Schmidt Primary Care Physician [phone] [place] [facility] [place] - 09/01/21 [facility] Attending Physician: Caitlin Tello MD Admitting Physician: Caitlin Tello MD Allergies, Adverse Reactions, Alerts Substance Reaction [...] 03/29/21 11:07:00 EDT, Route to Pharmacy Electronically, [facility] #[id number], Please write instructions in Tajik, 154.94, cm, 03/29/21 10:40:00... Start Date: 03/29/21 [...]
--- OUTSIDE RECORDS SUMMARY | 2022-07-11 06:06 | XMS_ITS | Continuity of Care Document ---
:1955 Author Organization [address], [address] [place] [address]- Care Team Providers Name Role Phone Padma MAYO, Lakshmi Schmidt Primary Care Physician [place] [facility] [place]/26/[place] - 02/25/[address], [address] [place], [place] [address] Allergies, Adverse Reactions, Alerts Substance Reaction Severity [...] Mouth, 2 times a day, # 60 tablet, Refills 1, Tot. Refills 1, Maintenance, 02/25/21 10:31:00 EDT, Route to Pharmacy Electronically, [facility] #[id number], Please write instructions in Slovak, 154.94, cm, 02/25/21 9:13:00 E... Start Date: 02/25/21 Status: Ordereddiclofenac 1% topical gel = 2 [...] 9:15:00 EDT, Supply Start Date: 02/25/21 Status: OrderedPregabalin = 100 mg, By Mouth, [...]
--- OUTSIDE RECORDS SUMMARY | 2022-07-11 06:06 | XMS_ITS | Continuity of Care Document ---
:1955 Author Organization [address], [address] [place] [address]- Care Team Providers Name Role Phone Padma MAYO, Lakshmi Schmidt Primary Care Physician En[place] [facility] [place] Date(s): 02/03/21 - 03/05/[address], [address] [place] [address]- Attending Physician: Louis Jackson Admitting Physician: Louis Jackson Referring Physician: AdmtrLouis Allergies, Adverse Reactions, Alerts Substance Reaction Severity [...] 02/25/21 10:31:00 EDT, Route to Pharmacy Electronically, [facility] #[id number], Please write instructions in Cambodian, 154.94, cm, 02/25/21 9:13:00 E... Start Date: [...]
--- OUTSIDE RECORDS SUMMARY | 2022-07-11 06:06 | XMS_ITS | Continuity of Care Document ---
:1955 Author Organization [address], [address] [place] [address]- Care Team Providers Name Role Phone Padma MAYO, Lakshmi Schmidt Primary Care Physician [phone] Encounter [facility] [place] Date(s): 02/16/21 - 03/18/[address], [address] [place], [place] [address] Allergies, Adverse Reactions, Alerts Substance Reaction [...] 02/25/21 10:31:00 EDT, Route to Pharmacy Electronically, [facility] #[id number], Please write instructions in Nepalese, 154.94, cm, 02/25/21 9:13:00 E... Start Date: [...]
--- OUTSIDE RECORDS SUMMARY | 2022-07-11 06:06 | XMS_ITS | Continuity of Care Document ---
:1955 Author Organization [facility] Address [address] [place] [address], [address] [place] [address], [address] [place] [address]- Care Team Providers Name Role Phone Padma MAYO, Lakshmi Schmidt Primary Care Physician Encounter [facility] [place] Date(s): 06/07/22 - 07/07/22 [facility] [address] [place] [address], [address] [place] [address], [address] [place] [address]- Allergies, Adverse Reactions, Alerts No Known Allergies [...] II opioid drug. Start Date: 01/17/21 Status: OrderedEpitol 200 mg oral tablet 2 tablet = 400 mg, By Mouth, 2 times a day, # 120 tablet, 0 Refills, Maintenance, 06/29/22 14:58:00 EDT, [facility] #[id number], Partial fill upon patient request if the prescription is for a schedule II opioid drug., 154.94, cm, 02/28/22 10:22:0... Start Date: 06/29/22 Status: Orderedhydroxychloroquine 200 mg oral tablet 200 [...] capsule, 0 Refills, Maintenance, 06/01/22 9:23:00EDT, Capsule, [facility] #[id number], Instructions in Palauan please. MassPAT checked, 154.94, cm, 02/28/22 10:22:00 EDT, Height, 76.7, kg, 01/19... Start Date: 06/01/22 Status: Orderedpregabalin 25 mg oral capsule See Instructions, Take one 25mg cap PO in addition to usual morning dose of pregabalin x 1 week. Then, add one 25mg cap PO to evening dose for a total of 175mg BID, # 60 capsule, 0 Refills, Maintenance, 06/30/22 10:42:00 EDT, [facility] #[id number]... Start Date: 06/30/22 Status: OrderedtiZANidine 2 mg oral tablet 4 mg, 2, tablet, By Mouth, Every 8 hours, Refills 0, Maintenance, 02/25/21 9:16:00 EDT, Partial fillupon patient request if the prescription is for a schedule II opioid drug. Start Date: 02/25/21 Status: OrderedVitamin D3 By Mouth, 2000 units, 0 Refills, Maintenance, 05/08/17 10:58:47 Start Date: 05/08/17 Status: Ordered Problem List Condition Confirmation Course Effective Dates Status Health Stat us Informant Splenic varices Confirmed Active Facial pain Confirmed Active GERD Confirmed Active (gastroesophageal reflux disease) Hypoxia Confirmed Active Dyspepsia Confirmed Active Fatty liver Confirmed Active disease, nonalcoholic Obese class I Confirmed Active Obesity (BMI Confirmed Active 30-39.9) Obstructive sleep Confirmed Active apnea Social History Social History Type Response Smoking Status Never (less than 100 in life time) entered on: 06/02/22 Sex Patient Care team information PersonnelName: Padma MAYO , Lakshmi Schmidt Address: Address: [facility] [place], [place] [address]
--- OUTSIDE RECORDS SUMMARY | 2022-07-11 06:06 | XMS_ITS | Continuity of Care Document ---
:1955 Author Organization [facility] Address [address] [place] [address]- Care Team Providers Name Role Phone Padma MAYO, Lakshmi Schmidt Primary Care Physician [id number] Date(s): 02/01/22 - 06/01/[address] [address]- Attending Physician: Kimmy Rowell MD Admitting Physician: Kimmy Rowell MD Referring Physician: Lakshmi Rouse MD Allergies, Adverse Reactions, Alerts No Known [...] capsule, 0 Refills, Maintenance, 06/01/22 9:23:00EDT, Capsule, [facility] #[id number], Instructions in Icelandic please. MassPAT checked, 154.94, cm, 02/28/22 10:22:00 EDT, Height, 76.7, kg, 01/19... Start Date: 06/01/22 Status: Orderedpregabalin 25 mg oral capsule See Instructions, Take one 25mg cap PO in addition to usual morning dose of pregabalin x 1 week. Then, add one 25mg cap PO to evening dose for a total of 175mg BID, # 60 capsule, 0 Refills, Maintenance, 06/01/22 9:23:00 EDT, [facility] #[id number]... Start Date: 06/01/22 Status: [...] (BMI 30-39.9)(Confirmed) Active Obstructive sleep apnea(Confirmed) Active Care Team PersonnelName: Padma MAYO , Lakshmi Schmidt Address: [address] [place], [place] [address]
--- OUTSIDE RECORDS SUMMARY | 2022-07-11 06:06 | XMS_ITS | Continuity of Care Document ---
:1955 Author Organization [facility] Address Unavailable , Care Team Providers Name Role Phone Padma MAYO, Lakshmi Schmidt Primary Care Physician [place] [facility] [place] Date(s): 01/23/22 - 02/22/22 [facility] Allergies, Adverse Reactions, Alerts No [...] 03/29/21 11:07:00 EDT, Route to Pharmacy Electronically, [facility] #[id number], Please write instructions in Kyrgyz, 154.94, cm, 03/29/21 10:40:00... Start Date: 03/29/21 [...] day, # 60 capsule, 0 Refills, Maintenance, 01/23/22 16:16:00EDT, Capsule, [facility] #[id number], Partial fill upon patient request if the prescription is for a schedule II opioid drug., 154.94, cm, ... Start Date: 01/23/22 Status: OrderedtiZANidine 2 mg oral tablet 4 [...] disease, Active nonalcoholic(Confirmed) Obesity (BMI 30-39.9)(Confirmed) Active Obstructive sleep apnea(Confirmed) Active
--- OUTSIDE RECORDS SUMMARY | 2022-07-11 06:06 | XMS_ITS | Continuity of Care Document ---
:1955 Author Organization [facility] Address Unavailable , Care Team Providers Name Role Phone Padma MAYO, Lakshmi Schmidt Primary Care Physician [place] [facility] [place] 02[place]/22 [facility] Allergies, Adverse Reactions, Alerts No [...] 03/29/21 11:07:00 EDT, Route to Pharmacy Electronically, [facility] #[id number], Please write instructions in Kyrgyz, 154.94, cm, [...] capsule, 0 Refills, Maintenance, 01/23/22 16:16:00EDT, Capsule, [facility] #[id number], Partial fill upon patient request if the [...]
--- OUTSIDE RECORDS SUMMARY | 2022-07-11 06:06 | XMS_ITS | Continuity of Care Document ---
:1955 Author Organization [address], [address] [place] [address]- Care Team Providers Name Role Phone Padma MAYO, Lakshmi Schmidt Primary Care Physician [place] [facility] [place] 02[place]03/21 - 02/10/[address], [address] [place], [place] [address] Attending Physician: Wilfredo Lopez MD Referring Physician: Lakshmi Rouse MD Allergies, Adverse Reactions, Alerts Substance Reaction [...] 02/03/21 10:23:00 EDT, Route to Pharmacy Electronically, [facility] #[id number], 154.94, cm, 01/19/21 8:58:00 EDT, Height, 76.7, [...]
--- OUTSIDE RECORDS SUMMARY | 2022-07-11 06:06 | XMS_ITS | Continuity of Care Document ---
:1955 Author Organization [facility] Address [address] [place] [address], [address] [place] [address], [address] [place] [address]- Care Team Providers Name Role Phone Padma MAYO, Lakshmi Schmidt Primary Care Physician [phone] Encounter [facility] [place] Date(s): 05/31/22 - 06/30/22 [facility] [address] [place] [address], [address] [place] [address], [address] [place] [address]- Allergies, Adverse Reactions, Alerts No Known Allergies [...] tablet, 0 Refills, Maintenance, 06/29/22 14:58:00 EDT, [facility] #[id number], Partial fill upon patient request if the [...] capsule, 0 Refills, Maintenance, 06/01/22 9:23:00EDT, Capsule, [facility] #[id number], Instructions in Irish please. MassPAT checked, 154.94, cm, 02/28/22 10:22:00 EDT, Height, 76.7, kg, 01/19... Start Date: 06/01/22 Status: Orderedpregabalin 25 mg oral capsule See Instructions, Take one 25mg cap PO in addition to usual morning dose of pregabalin x 1 week. Then, add one 25mg cap PO to evening dose for a total of 175mg BID, # 60 capsule, 0 Refills, Maintenance, 06/30/22 10:42:00 EDT, [facility] #[id number]... Start Date: 06/30/22 Status: [...] PersonnelName: Padma MAYO , Lakshmi Schmidt Address: [address] [place] [address]
--- OUTSIDE RECORDS SUMMARY | 2022-07-11 06:06 | XMS_ITS | Continuity of Care Document ---
:1955 Author Organization [address] [place] [address]- Care Team Providers Name Role Phone Padma MAYO, Lakshmi Schmidt Primary Care Physician Encounter [facility] [place] Date(s): 01/11/21 - 01/18/[address], [address] [place], [place] [address] Attending Physician: Wilfredo Lopez MD Referring Physician: Lakshmi Rouse MD Allergies, Adverse Reactions, Alerts Substance Reaction Severity Status NKA Active Medications Acetaminophen = 1,000 mg, By Mouth, 0 Refills, Maintenance, 01/17/21 13:14:00 EDT, Partial fill upon patient request if the prescription is for a schedule II opioid drug. Start Date: 01/17/21 Status: OrderedBaclofen = 10 mg, By Mouth, 3 times a day, 0 Refills, Maintenance, 01/17/21 13:13:00 EDT, Partial fill upon patient request if the prescription is for a schedule II opioid drug. Start Date: 01/17/21 Status: OrderedcarBAMazepine 100 mg oral tablet, chewable 100 mg, 1, tablet, Chew, 2 times a day, # 60 tablet, Refills 0, Tot. Refills 0, Maintenance, 01/10/21 6:41:00 EDT, Route to Pharmacy Electronically, [facility] #[id number], Partial fill upon patient request if the prescription is for a schedule I... Start Date: 01/10/21 Status: OrderedEnbrel See Instructions, 50 mg Subcutaneous Infusion once a week on sunday, 0 Refills, Maintenance, 01/17/21 13:09:00 EDT, Partial fill upon patient request if the prescription is for a schedule II opioid drug. Start Date: 4/12/21 Status: Orderedhydroxychloroquine 200 mg oral tablet 200 [...]
--- OUTSIDE RECORDS SUMMARY | 2022-07-11 06:06 | XMS_ITS | Continuity of Care Document ---
:1955 Author Organization [facility] Address [address] [place] [address]- Care Team Providers Name Role Phone Padma MAYO, Lakshmi Schmidt Primary Care Physician [place] [facility] [place](s[place] 02/11/21 - 02/11/[address] [address]- Encounter Diagnosis Trigeminal neuralgia (Final) - 02/11/21 Discharge Disposition: A-D/C Home Attending Physician: Rip Meza MD Admitting Physician: Rip Meza MD Referring Physician: Not on Staff, Referring MD Allergies, Adverse Reactions, Alerts Substance Reaction [...] 02/03/21 10:23:00 EDT, Route to Pharmacy Electronically, [facility] #[id number], 154.94, cm, 01/19/21 8:58:00 EDT, Height, 76.7, kg, 04/1... Start Date: 02/03/21 Status: Orderedcarbamazepine 200 mg oral capsule, extended release 1 capsule = 200 mg, By Mouth, 2 times a day, # 60 capsule, 0 Refills, Maintenance, 02/11/21 14:47:00EDT, CR Capsule, [facility] #[id number], Partial fill upon patient request if the prescription is for a schedule II opioid drug., 154.94, cm, ... Start Date: 02/11/21 Stop Date: 03/13/21 Status: [...] By Mouth, Every 6 hours, PRN, for 5 days, # 20 tablet, Refills 0, Tot. Refills 0, Acute 02/16/21 14:41:00 EDT, as needed for pain, 02/11/21 14:41:00 EDT, Route to Pharmacy Electronically, [facility] #[id number], Partial fill upon... Start Date: 02/11/21 Stop Date: 02/16/21 Status: OrderedOxyCODONE IR Tablet 5 mg, Tablet, By Mouth, Once, STAT, 02/11/21 13:37:00 EDT, Stop date 02/11/21 13:37:00 EDT Start Date: 02/11/21 Stop Date: 02/11/21 Status: CompletedPregabalin = 100 mg, By Mouth, 2 times [...] Active Vital Signs Most recent to oldest [Reference 1 2 3 Range]: Oxygen Saturation [94-100 %] 97 % 98 % 96 % (02/11/21 4:14 PM) (02/11/21 5:28 AM) (02/11/21 3:18 A M) Pulse Rate [55-90 bpm] 75 bpm 94 bpm 98 bpm (02/11/21 4:14 PM) *H* *H* (02/11/21 5:28 AM) (02/11/21 3:18 AM ) Blood Pressure [90-138/55-84 mm 152/85 mm Hg 141/80 mm Hg 154/68 mm Hg Hg] *H* *H* *H* (02/11/21 4:14 PM) (02/11/21 5:28 AM) (02/11/21 3:18 A M) Respiratory Rate [16-30 br/min] 18 br/min 18 br/min 16 br/min (02/11/21 4:14 PM) (02/11/21 2:11 PM) (02/11/21 5:28 A M) Temperature [96.8-100.4 DegF] 98.0 DegF 97.9 DegF 98 .0 DegF (02/11/21 4:14 PM) (02/11/21 5:28 AM) (02/11/21 12:20 AM) Mode of Delivery (Oxygen) Room air Room air room a ir (02/11/21 4:14 PM) (02/11/21 5:28 AM) (02/11/21 3:18 A M) Blood pressure sites Arm, right Arm, left Arm, left (5/7/21 4:14 PM) (02/11/21 5:28 AM) (02/11/21 3:18 A M) Temperature Route Oral Oral Oral (02/11/21 4:14 PM) (02/11/21 5:28 AM) (02/11/21 12:20 AM)
--- OUTSIDE RECORDS SUMMARY | 2022-07-11 06:06 | XMS_ITS | Continuity of Care Document ---
:1955 Author Organization [address] [place] [address]- Care Team Providers Name Role Phone Padma MAYO, Lakshmi Schmidt Primary Care Physician Encounter [facility] [place] Date(s): 01/06/21 - 02/05/[address], [address] [place], [place] [address] Allergies, Adverse Reactions, Alerts Substance [...] 02/03/21 10:23:00 EDT, Route to Pharmacy Electronically, [facility] #[id number], 154.94, cm, 01/19/21 8:58:00 EDT, Height, 76.7, [...]
--- OUTSIDE RECORDS SUMMARY | 2022-07-11 06:06 | XMS_ITS | Continuity of Care Document ---
:1955 Author Organization [facility] Address [address] [place] [address]- Care Team Providers Name Role Phone Lakshmi Rouse MD Primary Care Physician [phone] [place] [facility] [place] Date(s): 06/02/22 - 06/02/[address] [address]- Discharge Disposition: A-D/C Walkout Attending Physician: Not on Staff, Attending MD Admitting Physician: Not on Staff, Admitting MD Referring Physician: Not on Staff, Referring MD Allergies, Adverse Reactions, Alerts No Known [...] capsule, 0 Refills, Maintenance, 06/01/22 9:23:00EDT, Capsule, [facility] #[id number], Instructions in Serbian please. MassPAT checked, 154.94, cm, 02/28/22 10:22:00 EDT, Height, 76.7, kg, 01/19... Start Date: 06/01/22 Status: Orderedpregabalin 25 mg oral capsule See Instructions, Take one 25mg cap PO in addition to usual morning dose of pregabalin x 1 week. Then, add one 25mg cap PO to evening dose for a total of 175mg BID, # 60 capsule, 0 Refills, Maintenance, 06/01/22 9:23:00 EDT, [facility] #[id number]... Start Date: 06/01/22 Status: [...] (BMI 30-39.9)(Confirmed) Active Obstructive sleep apnea(Confirmed) Active Vital Signs Most recent to oldest [Reference Range]: 1 2 Oxygen Saturation [94-100 %] 96 % 98 % (06/02/22 1:36 PM) (06/02/22 11:37 AM) Pulse Rate [55-90 bpm] 66 bpm 82 bpm (06/02/22 1:36 PM) (06/02/22 11:37 AM) Blood Pressure [90-138/55-84 mm Hg] 148/70 mm Hg 149/ 66 mm Hg *H* *H* (06/02/22 1:36 PM) (06/02/22 11:37 AM) Respiratory Rate [16-30 br/min] 20 br/min 20 br/mi n (06/02/22 1:36 PM) (06/02/22 11:37 AM) Temperature [96.8-100.4 DegF] 98.2 DegF 98.5 DegF (06/02/22 1:36 PM) (06/02/22 11:37 AM) Mode of Delivery (Oxygen) Room air (06/02/22 1:36 PM) Blood pressure sites Arm, left Arm, right (06/02/22 1:36 PM) (06/02/22 11:37 AM) Temperature Route Oral Oral (06/02/22 1:36 PM) (06/02/22 11:37 AM) Social History Social History Type Response Smoking Status Never (less than 100 in life time) entered on: 06/02/22 Sex Care Team PersonnelName: Padma MAYO , Lakshmi Schmidt Address: [address]
--- OUTSIDE RECORDS SUMMARY | 2022-07-11 06:06 | XMS_ITS | Continuity of Care Document ---
:1955 Author Organization [facility] Address Unavailable , Care Team Providers Name Role Phone Padma MAYO, Lakshmi Schmidt Primary Care Physician [phone] [place] [facility] [place]10[place] [facility] Allergies, Adverse Reactions, Alerts [...] 03/29/21 11:07:00 EDT, Route to Pharmacy Electronically, [facility] #[id number], Please write instructions in Lithuanian, 154.94, cm, 03/29/21 10:40:00... Start Date: 03/29/21 [...]
[2022-07-11 06:40] LABS: COVID-19 Test Negative (Negative)
[2022-07-11 06:43] LABS: Hematocrit 41.9 % (37.0-47.0); Hemoglobin 13.9 g/dl (12.0-16.0)
[2022-07-11] MEDS: Lactated Ringers 1,000 ML 100 ML IVCONT ×2 (06:52→10:32)
--- NOTE | 2022-07-11 07:23 | MHC.SHP ---
Pre-Procedural Eval Section A Date of Service: 07/11/22 The patient is an INPATIENT: No Changes since office visit: Yes Patient answered all questions; No Cold of Flu in the past 2 weeks, No New Medical Problems and No Changes in Medication The History & Physical has been completed within 30 days and I have reviewed it.: Yes Section B Chief Complaint: LTKA Allergies: Allergies Allergy/AdvReac Type Severity Reaction Status Date / Time No Known Allergies Allergy Verified 07/03/22 10:06 [No Known Allergies*] Plan I have reviewed the history and physical and performed a pertinent physical examination on my patient. No changes have occurred unless specified.
--- NOTE | 2022-07-11 07:44 | PHA.MEDREC ---
Pharmacy Consult ? Medication Reconciliation Pharmacy has completed the medication reconciliation. Reviewed med rec done by nursing
--- NOTE | 2022-07-11 09:37 | PM.OP ---
Brief Operative Note Date of Service: 07/11/22 Pre-op diagnosis: left knee OA Post-op diagnosis: same Procedure: Left TKA Implants: [place] Triatahlon press fit posterior stabilized Surgeon: Peter Matos MD Anesthesia: regional and spinal Was an Drum Loader And Unloader used for this Procedure?: Yes Drum Loader And Unloader: Indu Daniels Estimated blood loss (mL): 200 IV fluids (mL): 1,000 Pathology: other Condition: stable Disposition: PACU
--- NOTE | 2022-07-11 09:55 | P.OP_ITS ---
Operative Note Operative Note Date of Service: 07/11/22 Narrative: Date of Service: 07/11/22 Pre-op diagnosis: left knee OA Post-op diagnosis: same Procedure: Left TKA Implants: [place] Triatahlon press fit posterior stabilized ps/29a Surgeon: Petre Matos MD Anesthesia: regional and spinal Was an Aerial Photographer used for this Procedure?: Yes Aerial Photographer: Indu Daniels Estimated blood loss (mL): 200 IV fluids (mL): 1,000 Pathology: other Condition: stable Disposition: PACU Procedure in detail: The patient was brought to the operating room and prepped and draped in standard sterile fashion. A time-out was called to identify proper site proper procedure proper surgeon and IV antibiotics were administered. 1 g of IV tranexamic acid was administered. I began by making a midline incision to the retinaculum and performed a medial parapatellar arthrotomy. The patella was translated laterally and the knee was flexed up. There was tricompartmental predominantly varus pattern OA. I performed a small medial peel and resected the infrapatellar fat pad. Selma's line was then used to drill my intramedullary femoral guide and my distal femur cut of 10mm was made in 5 degrees of valgus while protecting the soft tissues. I then measured a #1 femur and placed my cutting guide and made my anterior posterior and chamfer cuts protecting the soft tissues at all times. I then made my box cut removing the PCL. Once I was satisfied with my cuts I turned my attention to the tibia. I removed the meniscus medially and laterally and , using an external cutting guide, in line with the tibial crest and the third ray, I made my distal tibial cut in 0 deg slope of while protecting the posterior soft tissues at all times. An extension block was used to confirm appropriate amount of bony resection. I then sized a #2 tibia and once I was satisfied that there was complete tibial coverage I placed my trial and with the trial femur in place took the knee through range of motion. I was satisfied with the extension and flexion as well as the stability and balance at 0, 30 and 90 degrees. I then turned my attention to the patella where I removed 1 cm from the undersurface of the patella and then trialed a 29a patellar button. Again the knee was taken through range of motion I was satisfied with the tracking. I then returned to the femur and drilled my femoral lug holes and prepared the tibia. A femoral bone plug was placed and the knee was irrigated copiously. I then press fit the patella, tibia and femur in standard fashion. I trialed different inserts until I selected a #9 insert. The final insert was placed and a 3 minutes iodine soak with local TXA was performed. The knee was then closed with a running Quill suture, a 3 0 Vicryl and sergio on the skin. Patient was then placed in sterile dressing and brought to recovery room in stable condition there were no known complications.
[2022-07-11] MEDS: oxyCODONE HCl Immed Release 5 MG TABLET PO ×2 (11:21→13:08)
[2022-07-11] MEDS: fentaNYL citrate/PF 100 MCG/2 ML VIAL 25 MCG IVPUSH ×4 (11:21→11:36)
[2022-07-11] MEDS: HYDROmorphone HCl 0.5 MG/0.5 ML SYRINGE 0.25 MG IVPUSH ×4 (12:05→23:29)
[2022-07-11] MEDS: ceFAZolin Sodium/Dextrose,Iso 2 GM/50 ML PIGGYBACK IV (13:09)
[2022-07-11] MEDS: ondansetron HCL 4 MG/2 ML VIAL IVPUSH (13:38)
--- NOTE | 2022-07-11 13:49 | P.CONHOSP_ITS ---
History of Present Illness Data of Consult Service Date: 07/11/22 Requesting physician: Peter Matos Primary Care Provider: Lakshmi Rouse MD HPI 66-year-old status post left total knee arthroplasty admitted by Orthopedic surgery. Surgery was unremarkable. Patient has a moderate amount of pain at this time. Denies any nausea or vomiting. He is currently resting in bed comfortably, hemodynamically stable at this time. Review of Systems Review of Systems: Denies any recent fever chills or decrease in appetite respiratory denies any shortness of breath coverage production cardiovascular Denies chest pain gastrointestinal denies any dysphagia abdominal pain nausea vomiting or diarrhea genitourinary denies any dysuria frequency or hematuria musculoskeletal left knee pain neuropsych denies any weakness or seizures all other systems reviewed are negative [facility] Medical History Autoimmune urticaria Cervical spondylosis without myelopathy Fibromyalgia Gastroesophageal reflux disease Hiatal hernia Impaired fasting glucose Insomnia Kidney stone on left side Loose right total knee arthroplasty Low back pain at multiple sites Lumbago with sciatica, left side Morbid obesity due to excess calories Osteoarthritis Renal calculi Seronegative rheumatoid arthritis Shoulder pain, right Sleep apnea Splenic artery aneurysm Tailor's bunion of left foot Trigeminal neuralgia of right side of face Varices of other sites Family History Father No problems noted. Mother Hypertension Maternal Grandmother No problems noted. Maternal Grandfather No problems noted. Paternal Grandmother No problems noted. Paternal Grandfather No problems noted. Maternal Aunt Diabetes Sister No problems noted. Son No problems noted. Daughter No problems noted. Surgical History History of arthroscopy of right shoulder History of bunionectomy of left great toe History of colonoscopy History of cranioplasty History of esophagogastroduodenoscopy (EGD) History of laparoscopic cholecystectomy History of shoulder surgery Status post laser lithotripsy of ureteral calculus Status post right knee replacement Social History Household Members: Spouse and Other Household Members Other:: mother,daughter Housing: House Are you a primary grounds caretaker to a significant other at home: No Do you presently have visiting nurse or other home services: Yes ([employer]CH[employer]IAN) Alcohol intake: never Patient Tobacco Use Status: Never used Tobacco e-Cigarette/Vaping Use: Never Used Use of substances other than those prescribed or required for medical reasons: No Have you been hit, kicked, punched, or otherwise hurt by someone within the past year? If so, by whom?: No Are you DNR?: No Advance Directives: No (states is HCP and has official form) Advance Directives Information Provided: Yes (will bring copy DOS) Advance Directives on File: No Recently lost weight without trying: No Eating poorly because of decreased appetite: No Nutrition Risks: No Nutritional Risk Poor oral hygiene: No service: No Current occupational status: unemployed Current occupation: rt handed Cognitive needs: No Hearing needs: No Vision needs: No Meds Allergies Allergy/AdvReac Type Severity Reaction Status Date / Time No Known Allergies Allergy Verified 07/03/22 10:06 [No Known Allergies*] Active Medications: Current Medications Acetaminophen (Acetaminophen 325 Mg Tablet) 650 mg PO Q6H PRN PRN Reason: Pain, Mild (Pain Scale 1-3) Aspirin (Aspirin 325 Mg Tablet) 325 mg PO BID [facility] Celecoxib (Celecoxib 200 Mg Capsule) 200 mg PO BID WILBERTO Docusate Sodium (Docusate Sodium 100 Mg Capsule) 100 mg PO BID WILBERTO Hydromorphone HCl (Hydromorphone Hcl 0.5 Mg/0.5 Ml Syringe) 0.25 mg IVPUSH Q4H PRN; Protocol PRN Reason: Pain, Severe (Pain Scale 7-10) Lactated Ringer's (Lr) 1,000 mls @ 100 mls/hr IVCONT .Q10H WILBERTO Stop: 07/12/22 10:01 Last Admin: 07/11/22 10:32 Dose: 100 mls/hr Cefazolin Sodium/Dextrose (Ancef) 2 gm in 50 mls @ 100 mls/hr IV POSTOP ONE Stop: 07/11/22 14:29 Last Admin: 07/11/22 13:09 Dose: 100 mls/hr Ondansetron HCl (Ondansetron Hcl 4 Mg/2 Ml Vial) 4 mg IVPUSH Q8H PRN PRN Reason: Nausea and Vomiting Last Admin: 07/11/22 13:38 Dose: 4 mg Oxycodone HCl (Oxycodone Hcl Immed Release 5 Mg Tablet) 5 mg PO Q4H PRN PRN Reason: Pain, Moderate (Pain Scale 4-6 Last Admin: 07/11/22 13:08 Dose: 5 mg Oxycodone HCl (Oxycodone Hcl Er 10 Mg Tab.Er.12h) 10 mg PO BID [facility] Sodium Chloride (0.9 % Sodium Chloride Flush 3 Ml Syringe) 3 ml IVFLUSH QSHIFT [facility] Home Medications Medication Instructions Recorded Confirmed Last Taken Type cholecalciferol (vitamin D3) 50 5,000 unit PO DAILY 06/29/22 07/10/22 07/10/22 History mcg (2,000 unit) capsule pregabalin 25 mg capsule 25 mg PO DAILY 06/29/22 07/11/22 07/10/22 History pregabalin 150 mg capsule 1 cap PO BID 07/04/22 07/10/22 07/10/22 History carbamazepine 200 mg tablet 400 mg PO BID 07/10/22 07/11/22 07/10/22 History Physical Exam Vital Signs and Narrative: Vital Signs: Last Vital Signs Temp 97.2 F 07/11/22 12:52 Pulse 78 07/11/22 12:52 Resp 18 07/11/22 12:52 BP 116/66 07/11/22 12:52 Pulse Ox 93 07/11/22 12:52 O2 Del Method 07/11/22 12:52 O2 Flow Rate 2 07/11/22 12:52 BMI result Body Mass Index 32.2 Appearing in no acute distress head is normocephalic atraumatic eyes pupils are PERRLA sclera is anicteric mouth throat mucous membranes are intact and moist neck is supple no lymphadenopathy, no JVD noted lung sounds are clear to auscultation heart regular rate rhythm, clear S1, S2 positive bowel sounds, abdomen is soft, nontender neuro patient is alert x3, no focal deficits Left knee surgical dressing in place, incision of visualized Results Labs CBC and Chem 7: 07/11/22 06:37 07/04/22 13:27 Labs: Laboratory Results - last 24 hr 07/11/22 06:00 COVID-19 ([facility]) Negative COVID-19 Clin Com See Note Imaging Radiologist's Impressions: Impressions Knee X-Ray 07/11/22 10:15 IMPRESSION: Postoperative changes without overt hardware abnormality. Assessment and Plan (1) Nephrolithiasis: Status: Acute Plan 66-year-old woman admitted by Orthopedic surgery and is status post total knee arthroplasty Total knee arthroplasty Management as per surgical team Pain management Hypernatremia Mild likely some component of dehydration Follow BMP History of trigeminal neuralgia / rheumatoid arthritis On pregabalin, hydrochloroquine, carbamazepine, Enbrel GERD Continue PPI DVT prophylaxis with full-dose aspirin Attending Dr. Elise Full code
[2022-07-11] MEDS: Acetaminophen 325 MG TABLET 650 MG PO (16:48)
[2022-07-11] MEDS: Pregabalin 150 MG CAPSULE PO (20:35)
[2022-07-11] MEDS: carBAMazepine 200 MG TABLET 400 MG PO (20:35)
[2022-07-11] MEDS: Docusate Sodium 100 MG CAPSULE PO (20:35)
[2022-07-11] MEDS: Hydroxychloroquine Sulfate 200 MG TABLET PO (20:35)
[2022-07-11] MEDS: oxyCODONE HCl ER 10 MG TAB.ER.12H PO (20:36)
[2022-07-11] MEDS: 0.9 % Sodium Chloride Flush 3 ML SYRINGE IVFLUSH (22:14)
[2022-07-12] VITALS (7 sets, daily range): BP systolic 100–130; BP diastolic 51–67; PULSE 84–104; RESP 17–20; TEMP 36.2–37.3; O2SAT 92–95
[2022-07-12] MEDS: HYDROmorphone HCl 0.5 MG/0.5 ML SYRINGE 0.25 MG IVPUSH (04:05)
[2022-07-12] MEDS: Omeprazole 20 MG CAPSULE.DR PO (04:05)
[2022-07-12 06:58] LABS: MANUAL DIFF FLAG NO
[2022-07-12 07:14] LABS: Basophils Percent Auto 0.5 % (0-2); Eosinophils Percent Auto 0.4 % (0-4); Hematocrit 34.4 % (37.0-47.0); Hemoglobin 11.4 g/dl (12.0-16.0); Imm Gran Abs Auto 0.03 X10*3/uL (0.00-0.03); Imm Gran Pct Auto 0.4 % (0.0-0.4); Lymphocytes Absolute Auto 1.4 X10*3/uL (1.2-4.9); Mean Corpuscular HGB Conc 33.1 g/dl (31.0-35.0); Mean Corpuscular Hemoglobin 30.7 pg (27.0-33.0); Mean Corpuscular Volume 92.7 fL (80.0-98.0); Mean Platelet Volume 10.4 fL (9.4-12.3); Monocytes Percent Auto 11.6 % (2-11); Neutrophils Percent Auto 71.1 % (45-73); Platelet Count 135 X10*3/uL (160-400); Red Blood Count 3.71 X10*6/uL (4.20-5.50); Red Cell Distribution Width 13.1 % (11.0-16.0); White Blood Count 8.4 X10*3/uL (4.8-10.8)
[2022-07-12 07:19] LABS: Anion Gap 15 (12-20); Blood Urea Nitrogen 14 mg/dL (9-16); Calcium 8.2 mg/dL (8.4-10.2); Carbon Dioxide 25 mmol/L (22-29); Chloride 103 mmol/L (96-108); Creatinine Clr Calc Pharmacy 72.3; Estimated Glomerular Filt Rate > 60; Glucose Fasting 126 mg/dL (60-99); Potassium 4.3 mmol/L (3.3-5.1); Sodium 139 mmol/L (135-145)
--- NOTE | 2022-07-12 07:39 | PM.PNORT ---
Subjective Subjective Date of Service: 07/12/22 Interval history: POD1 s/p LTKA. No overnight events. Patient complains of pain. Medication adjusted. No additional complaints. Physical Exam Vital Signs: Vital Signs: Last Vital Signs Temp 97.1 F 07/12/22 04:00 Pulse 104 H 07/12/22 04:00 Resp 17 07/12/22 04:00 BP 108/60 07/12/22 04:00 Pulse Ox 93 07/12/22 04:00 O2 Del Method 07/12/22 04:00 O2 Flow Rate 2 07/12/22 04:00 BMI result Body Mass Index 32.2 Const: General: cooperative, healthy appearing and no acute distress Resp: Effort & Inspection: normal respiratory effort and able to speak in complete sentences Cardio: Rate: regular rate Peripheral pulses: Peripheral pulses 2+ throughout GI: Palpation (GI): Soft to palpation Skin: Lesions: no lesions Rashes: no rashes Extrem: Other: Left knee Aquacel is clean, dry, and intact. Able to dorsiflex and plantarflex. NVI. Procedures Date of Service Date of Service: 07/12/22 Progress Note: A&P Assessment and plan (1) Status post total left knee replacement: Status: Acute Assessment and Plan: Continue pain mgmnt Begin ASA for dvt ppx begin PT for LTKA Dispo planning-Pending PT eval, pain mgmnt Time Spent With Patient Time: Total time spent is greater than 50% in coordination of care (as documented) at patient's floor/unit and/or counseling patient: Quality Stroke Does the patient have a stroke diagnosis?: No VTE Prior VTE?: No VTE Risk Level:: Medical - moderate - high VTE Device Contraindication: N/A - Device Ordered VTE Drug Contraindication: N/A - Med Ordered
[2022-07-12] MEDS: oxyCODONE HCl ER 10 MG TAB.ER.12H PO ×2 (07:46→22:02)
[2022-07-12] MEDS: Pregabalin 25 MG CAPSULE PO (07:48)
[2022-07-12] MEDS: Docusate Sodium 100 MG CAPSULE PO ×2 (07:48→22:02)
[2022-07-12] MEDS: Aspirin 325 MG TABLET PO ×2 (07:48→22:03)
[2022-07-12] MEDS: Hydroxychloroquine Sulfate 200 MG TABLET PO ×2 (07:48→22:02)
[2022-07-12] MEDS: carBAMazepine 200 MG TABLET 400 MG PO ×2 (07:48→22:02)
[2022-07-12] MEDS: Pregabalin 150 MG CAPSULE PO ×2 (07:48→22:02)
[2022-07-12] MEDS: 0.9 % Sodium Chloride Flush 3 ML SYRINGE IVFLUSH ×3 (07:54→23:59)
[2022-07-12] MEDS: oxyCODONE HCl Immed Release 5 MG TABLET 10 MG PO ×2 (07:55→13:42)
[2022-07-12] MEDS: HYDROmorphone HCl 0.5 MG/0.5 ML SYRINGE IVPUSH ×3 (10:14→22:04)
--- NOTE | 2022-07-12 13:01 | HO.POSTANES ---
Post Anesthesia Evaluation Post Anesthesia Evaluation Vital Signs: Vital Signs Temp Pulse Resp BP Pulse Ox O2 Del Method O2 Flow Rate 07/12/22 11:43 98.9 F 94 18 119/57 L 95 Nasal Cannula 2 07/12/22 09:41 103 H 130/67 94 07/12/22 07:37 98.1 F 103 H 20 130/67 94 Nasal Cannula 2 07/12/22 04:00 97.1 F 104 H 17 108/60 93 Nasal Cannula 2 Anesthesia: Spinal and Nerve Block Mental Status: Awake Pain Control: Satisfactory (complaining of pain) Nausea/Vomiting: None Hydration: Adequate Anesthesia-Related Issues: No Anes. Related Issues
[2022-07-12] MEDS: Acetaminophen 325 MG TABLET 650 MG PO (13:42)
--- NOTE | 2022-07-12 15:14 | MHC.CM.PN ---
Addendum entered by Jodee Penaloza 07/13/22 09:46: CM MET WITH PATIENT/[employer], PT IS DECLINING TO GO TO STR BUT IS AGREEABLE TO HOME PT. REFERRAL SENT TO [facility] PER PATIENT REQUEST. Original Note: IMM DELIVERED CM MET WITH PATIENT, LIVES WITH SPOUSE IN [address] SON PROVIDES 2 HOURS OF [employer] SERVICES DAILY. PATIENT HAS A CANE AND WALKER AT HOME. HAS HCP SOMEWHERE AT HOME SO WILL DO NEW ONE WHILE INPATIENT. COVID VAX X [address] [employer] PCP IS [address] ARTIS PT IS RECOMMENDING STR, REFERRALS SENT TO [facility] PER PATIENT REQUEST.
--- NOTE | 2022-07-12 16:14 | P.PNIM_ITS ---
Subjective Subjective Date of Service: 07/12/22 Interval History: complaining of left knee pain, no other acute issues overnight, denies headache, dizziness no nausea, no vomiting tolerating diet no other acute issues overnight. Review of Systems General no fever, no chills respiratory no cough, no shortness of breath cardiovascular no chest pain, no palpitation Review of Systems: Yes all other systems are reviewed and are negative Physical Exam Vital Signs: Vital Signs: Last Vital Signs Temp 99.1 F 07/12/22 15:02 Pulse 90 07/12/22 15:02 Resp 18 07/12/22 15:02 BP 116/54 L 07/12/22 15:02 Pulse Ox 92 07/12/22 15:02 O2 Del Method 07/12/22 15:02 O2 Flow Rate 2 07/12/22 15:02 BMI result Body Mass Index 32.2 Const: Other: General awake alert x3, in no acute distress. Neck no JVD. CVS regular rate rhythm, Respiratory lungs clear to auscultation, no respiratory distress, no wheeze, no rhonchi. Gastrointestinal abdomen soft, nontender, bowel sounds audible, no guarding , no rigidity. Extremities no peripheral edema. left knee dressing in place Neuro nonfocal Skin no rash psych appropriate affect Objective Data Active Medications Acetaminophen (Acetaminophen 325 Mg Tablet) 650 mg PO Q6H PRN PRN Reason: Pain, Mild (Pain Scale 1-3) Last Admin: 07/12/22 13:42 Dose: 650 mg Documented By: ALBERT Aspirin (Aspirin 325 Mg Tablet) 325 mg PO BID [facility] Last Admin: 07/12/22 08:05 Dose: Not Given Documented By: ALBERT Non-Admin Reason: Duplicate Order Carbamazepine (Carbamazepine 200 Mg Tablet) 400 mg PO BID [facility] Last Admin: 07/12/22 07:48 Dose: 400 mg Documented By: ALBERT Docusate Sodium (Docusate Sodium 100 Mg Capsule) 100 mg PO BID [facility] Last Admin: 07/12/22 07:48 Dose: 100 mg Documented By: ALBERT Hydromorphone HCl (Hydromorphone Hcl 0.5 Mg/0.5 Ml Syringe) 0.5 mg IVPUSH Q4H PRN; Protocol PRN Reason: Pain, Severe (Pain Scale 7-10) Last Admin: 07/12/22 10:14 Dose: 0.5 mg Documented By: ALBERT Hydroxychloroquine Sulfate (Hydroxychloroquine Sulfate 200 Mg Tablet) 200 mg PO BID [facility] Last Admin: 07/12/22 07:48 Dose: 200 mg Documented By: ALBERT Omeprazole (Omeprazole 20 Mg Capsule.Dr) 20 mg PO DAILY@0630 [facility] Last Admin: 07/12/22 04:05 Dose: 20 mg Documented By: TATEJ Ondansetron HCl (Ondansetron Hcl 4 Mg/2 Ml Vial) 4 mg IVPUSH Q8H PRN PRN Reason: Nausea and Vomiting Last Admin: 07/11/22 13:38 Dose: 4 mg Documented By: ALEX Oxycodone HCl (Oxycodone Hcl Er 10 Mg Tab.Er.12h) 10 mg PO BID [facility] Last Admin: 07/12/22 07:46 Dose: 10 mg Documented By: ALBERT Oxycodone HCl (Oxycodone Hcl Immed Release 5 Mg Tablet) 10 mg PO Q4H PRN PRN Reason: Pain, Moderate (Pain Scale 4-6 Last Admin: 07/12/22 13:42 Dose: 10 mg Documented By: ALBERT Pregabalin (Pregabalin 150 Mg Capsule) 150 mg PO BID [facility] Last Admin: 07/12/22 07:48 Dose: 150 mg Documented By: ALBERT Pregabalin (Pregabalin 25 Mg Capsule) 25 mg PO DAILY [facility] Last Admin: 07/12/22 07:48 Dose: 25 mg Documented By: ALBERT Sodium Chloride (0.9 % Sodium Chloride Flush 3 Ml Syringe) 3 ml IVFLUSH QSHIFT [facility] Last Admin: 07/12/22 07:54 Dose: 3 ml Documented By: ALBERT Labs CBC & Chem 7: 07/12/22 05:55 07/12/22 05:55 Labs: Laboratory Results - last 24 hr 07/12/22 07/12/22 05:55 05:55 MCV 92.7 MCH 30.7 MCHC 33.1 RDW 13.1 Plt Count 135 L MPV 10.4 Immature Gran % (Auto) 0.4 Neut % (Auto) 71.1 Lymph % (Auto) 16.0 L [place] % (Auto) 11.6 H Eos % (Auto) 0.4 Baso % (Auto) 0.5 Lymph # (Auto) 1.4 [place] # (Auto) 1.0 Eos # (Auto) 0.0 Baso # (Auto) 0.0 Abs Immat Gran (auto) 0.03 Absolute Neuts (auto) 6.0 Absolute Nucleated RBC 0.000 Nucleated RBC % (auto) 0.0 Anion Gap 15 Estim Creat Clear Calc 72.3 Estimated GFR > 60 Fasting Glucose 126 H Calcium 8.2 L D Assessment and Plan (1) Status post total left knee replacement: Status: Acute (2) Trigeminal neuralgia of right side of face: Status: Acute Plan 66-year-old woman admitted by Orthopedic surgery and is status post total knee arthroplasty left Total knee arthroplasty postoperative day 1 good pain control, slight drop in hematocrit but stable encouraged incentive spirometry, continue current pain medication and stool softeners. Hypernatremia Mild likely due to dehydration resolved with IV fluid History of trigeminal neuralgia / rheumatoid arthritis no acute exacerbation continue pregabalin, hydrochloroquine,and carbam azepine,hold Enbrel GERD Continue PPI DVT prophylaxis with full-dose aspirin Full code disposition as per Ortho Quality Stroke Does the patient have a stroke diagnosis?: No VTE Prior VTE?: No VTE Risk Level:: Medical - moderate - high VTE Device Contraindication: N/A - Device Ordered VTE Drug Contraindication: N/A - Med Ordered
[2022-07-13] VITALS (8 sets, daily range): BP systolic 104–123; BP diastolic 51–57; PULSE 100–113; RESP 16–19; TEMP 36–36.9; O2SAT 91–94
[2022-07-13] MEDS: Omeprazole 20 MG CAPSULE.DR PO (05:07)
[2022-07-13 06:55] LABS: MANUAL DIFF FLAG NO
[2022-07-13 07:00] LABS: Basophils Percent Auto 0.4 % (0-2); Eosinophils Absolute Auto 0.1 X10*3/uL (0.0-0.4); Eosinophils Percent Auto 1.1 % (0-4); Hemoglobin 10.8 g/dl (12.0-16.0); Imm Gran Abs Auto 0.03 X10*3/uL (0.00-0.03); Imm Gran Pct Auto 0.4 % (0.0-0.4); Lymphocytes Absolute Auto 1.7 X10*3/uL (1.2-4.9); Lymphocytes Percent Auto 20.5 % (20-40); Mean Corpuscular HGB Conc 33.8 g/dl (31.0-35.0); Mean Corpuscular Hemoglobin 31.1 pg (27.0-33.0); Mean Corpuscular Volume 92.2 fL (80.0-98.0); Mean Platelet Volume 10.7 fL (9.4-12.3); Monocytes Absolute Auto 1.2 X10*3/uL (0.1-1.2); Monocytes Percent Auto 14.7 % (2-11); Neutrophils Absolute Auto 5.2 x10*3/uL (2.0-8.3); Neutrophils Percent Auto 62.9 % (45-73); Platelet Count 118 X10*3/uL (160-400); Red Blood Count 3.47 X10*6/uL (4.20-5.50); White Blood Count 8.2 X10*3/uL (4.8-10.8)
[2022-07-13 07:26] LABS: Anion Gap 13 (12-20); Blood Urea Nitrogen 15 mg/dL (9-16); Carbon Dioxide 29 mmol/L (22-29); Chloride 100 mmol/L (96-108); Creatinine Clr Calc Pharmacy 79.8; Estimated Glomerular Filt Rate > 60; Glucose Fasting 103 mg/dL (60-99); Potassium 4.1 mmol/L (3.3-5.1); Sodium 138 mmol/L (135-145)
[2022-07-13] MEDS: Aspirin 325 MG TABLET PO ×2 (07:37→21:24)
[2022-07-13] MEDS: Pregabalin 150 MG CAPSULE PO ×2 (07:37→21:24)
[2022-07-13] MEDS: Acetaminophen 325 MG TABLET 650 MG PO (07:37)
[2022-07-13] MEDS: oxyCODONE HCl ER 10 MG TAB.ER.12H PO (07:38)
[2022-07-13] MEDS: oxyCODONE HCl Immed Release 5 MG TABLET 10 MG PO (07:38)
[2022-07-13] MEDS: Pregabalin 25 MG CAPSULE PO (07:38)
[2022-07-13] MEDS: Docusate Sodium 100 MG CAPSULE PO ×2 (07:38→21:24)
[2022-07-13] MEDS: carBAMazepine 200 MG TABLET 400 MG PO ×2 (07:38→21:25)
[2022-07-13] MEDS: Hydroxychloroquine Sulfate 200 MG TABLET PO ×2 (07:39→21:24)
[2022-07-13] MEDS: 0.9 % Sodium Chloride Flush 3 ML SYRINGE IVFLUSH ×3 (07:39→23:45)
--- NOTE | 2022-07-13 08:48 | PM.DS ---
DS: Providers Provider Date of Service: 07/14/22 Date of admission: 07/11/22 05:55 Primary care physician: Lakshmi Rouse MD Consults: 07/11/22 12:24 Consult to Hospitalist Routine Consulting Provider: Hospitalist Reason For Exam: Medical management DS: Diagnosis Discharge Diagnosis (1) Status post total left knee replacement: Status: Acute DS: Summary Hospital Course Hospital Course: The patient underwent a successful left total knee arthroplasty, they were transferred to PACU and then to the floor to recover. During their stay, their vitals were stable, afebrile at 97.9. Labs were unremarkable, H/H 10.8/32.0. POD 1 they were started on Aspirin 325mg po bid for DVT ppx, they also received Physical Therapy services twice a day. Prior to discharge, their dressing was changed, incision clean dry and intact, new Aquacel dressing applied and the plan was to be discharged home with VNA services. Time Spent with Patient Time attestation: Total time spent providing and/or coordinating discharge services: Discharge coordination time: Less than 30 minutes Quality: Safe Use of Opioids Does Pt have an Active Cancer Diagnosis on the Problem List?: No Quality: Stroke Does the patient have a stroke diagnosis?: No Physical Exam Vital Signs: Vital Signs: Last Vital Signs Temp 97.9 F 07/13/22 07:25 Pulse 111 H 07/13/22 07:25 Resp 19 07/13/22 07:25 BP 123/57 L 07/13/22 07:25 Pulse Ox 91 L 07/13/22 07:25 O2 Del Method 07/13/22 07:25 O2 Flow Rate 2.0 07/13/22 07:25 BMI result Body Mass Index 32.2 Const: General: cooperative, healthy appearing and no acute distress Resp: Effort & Inspection: normal respiratory effort and able to speak in complete sentences Cardio: Rate: regular rate Peripheral pulses: Peripheral pulses 2+ throughout GI: Palpation (GI): Soft to palpation Skin: Lesions: no lesions Rashes: no rashes Extrem: Other: Left knee new Aquacel dressing placed. Abby intact. No erythema or drainage. Patient able to ambulate. Able to dorsiflex and plantarflex. NVI. DS: Data Data Completed and Pending Pending studies at discharge: Pending at discharge 07/11/22 09:11 Surgical [PTH] Routine Labs on day of discharge: Laboratory Results - last 24 hr 07/13/22 07/13/22 05:49 05:49 WBC 8.2 RBC 3.47 L Hgb 10.8 L Hct 32.0 L MCV 92.2 MCH 31.1 MCHC 33.8 RDW 13.0 Plt Count 118 L MPV 10.7 Immature Gran % (Auto) 0.4 Neut % (Auto) 62.9 Lymph % (Auto) 20.5 [place] % (Auto) 14.7 H Eos % (Auto) 1.1 Baso % (Auto) 0.4 Lymph # (Auto) 1.7 [place] # (Auto) 1.2 Eos # (Auto) 0.1 Baso # (Auto) 0.0 Abs Immat Gran (auto) 0.03 Absolute Neuts (auto) 5.2 Absolute Nucleated RBC 0.000 Nucleated RBC % (auto) 0.0 Sodium 138 Potassium 4.1 Chloride 100 Carbon Dioxide 29 Anion Gap 13 BUN 15 Creatinine 0.67 Estim Creat Clear Calc 79.8 Estimated GFR > 60 Fasting Glucose 103 H Calcium 8.0 L Discharge Plan Discharge Anticipated Discharge Date/Time: 07/14/22 12:00 Patient Disposition: Home Health Service Discharge Diagnosis: s/p LTKA Referrals: Indu Daniels PA-C [Physician Training Professional] - 07/27/22 1:00 pm Discharge Medications: New acetaminophen 325 mg Tablet 650 mg PO Q6H PRN (Reason: Pain, Mild (Pain Scale 1-3)) 30 Days Qty: 240 0RF aspirin 325 mg Tablet 325 mg PO BID 42 Days Qty: 84 0RF oxycodone 10 mg tablet 10 mg PO Q4H PRN (Reason: Pain, Moderate (Pain Scale 4-6) 7 Days Qty: 42 0RF Rx Instructions: Partial Fill upon patient request. docusate sodium 100 mg Capsule 100 mg PO BID 30 Days Qty: 60 0RF Continued omeprazole 20 mg capsule,delayed release(DR/EC) 20 mg PO DAILY Qty: 90 0RF Enbrel SureClick 50 mg/mL (1 mL) pen injector 50 mg subcut QWEEK Qty: 4 0RF hydroxychloroquine 200 mg tablet 200 mg PO BID Qty: 60 3RF pregabalin 150 mg capsule 1 cap PO BID cholecalciferol (vitamin D3) 50 mcg (2,000 unit) capsule 5,000 unit PO DAILY pregabalin 25 mg capsule 25 mg PO DAILY pyridoxine (vitamin B6) 100 mg tablet 100 mg PO DAILY 90 Days Qty: 90 1RF carbamazepine 200 mg tablet 400 mg PO BID Discharge Orders: Discharge Order (Routine); Ordered 07/14/22 Ordered By: Breanna Fregoso Diet: Regular diet Activity on Discharge: Use cane or walker Stand Alone Forms: Patient Portal Discharge page Care Plan Goals: Restore fxn to Left knee Health Concerns: None Plan of Treatment: Physical Therapy for ROM 0-120, quad strength, gait training. Use walker for ambulation Limit stair climbing, No shower, No tub bath, No driving Continue anticoagulant Keep Aquacel dressing clean, dry and intact. Follow up with orthopedics in 2 weeks Assessment: Stable for discarge
--- NOTE | 2022-07-13 08:49 | W.MHC.F2F ---
Service Date Service Date: 07/13/22 Encounter Date of encounter: 07/13/22 Reasons for Services Signs and symptoms assessed: Pt. is considered homebound due to recent surgery. Unable to drive, poor balance, poor gait mechanics. Reason for physical therapy: home safety and mobility, therapeutic exercises, restore joint function, gait/transfer training, assess need for DME and ADL training Homebound: Leaving the home is medically contraindicated at this time without the asist of a device and/or another person due th the listed conditions above and below. Reason homebound: unsteady gait / fall risk, pain with ambulation, pain with transfers, poor balance / fall risk and unable to drive Homebound supporting statement: Pt. is considered homebound due to recent surgery. Unable to drive, poor balance, poor gait mechanics. Certification: Based on the above findings, I certify that this patient is confined to the home and needs intermittent long-term care, physical therapy and/or speech therapy, or continues to need occupational therapy. The patient is under my care, and I have initiated the establishment of the plan of care. The patient will be followed by a physician who will periodically review the plan of care.
--- NOTE | 2022-07-13 11:00 | P.PNIM_ITS ---
Subjective Subjective Date of Service: 07/13/22 Interval History: Complaining of left knee pain otherwise no acute issues tolerating diet no nausea, no vomiting, no abdominal pain, had a bowel movement, no lightheadedness or dizziness, no acute issues overnight. Review of Systems Review of Systems: Yes all other systems are reviewed and are negative Physical Exam Vital Signs: Vital Signs: Last Vital Signs Temp 97.9 F 07/13/22 07:25 Pulse 111 H 07/13/22 09:25 Resp 19 07/13/22 07:25 BP 123/57 L 07/13/22 09:25 Pulse Ox 91 L 07/13/22 09:25 O2 Del Method 07/13/22 07:25 O2 Flow Rate 2.0 07/13/22 07:25 BMI result Body Mass Index 32.2 Const: Other: General? awake alert x3, in no acute distress.? Neck? no JVD. CVS? regular rate rhythm, Respiratory lungs clear to auscultation, no respiratory distress, no wheeze, no rhonchi. Gastrointestinal abdomen soft, nontender, bowel sounds audible, no guarding , no rigidity. Extremities no? peripheral edema. left knee dressing in place Neuro nonfocal Skin no rash psych appropriate affect Objective Data Active Medications Acetaminophen (Acetaminophen 325 Mg Tablet) 650 mg PO Q6H PRN PRN Reason: Pain, Mild (Pain Scale 1-3) Last Admin: 07/13/22 07:37 Dose: 650 mg Documented By: ALBERT Aspirin (Aspirin 325 Mg Tablet) 325 mg PO BID [facility] Last Admin: 07/13/22 07:37 Dose: 325 mg Documented By: ALBERT Carbamazepine (Carbamazepine 200 Mg Tablet) 400 mg PO BID [facility] Last Admin: 07/13/22 07:38 Dose: 400 mg Documented By: ALBERT Docusate Sodium (Docusate Sodium 100 Mg Capsule) 100 mg PO BID [facility] Last Admin: 07/13/22 07:38 Dose: 100 mg Documented By: ALBERT Hydromorphone HCl (Hydromorphone Hcl 0.5 Mg/0.5 Ml Syringe) 0.5 mg IVPUSH Q4H PRN; Protocol PRN Reason: Pain, Severe (Pain Scale 7-10) Last Admin: 07/12/22 22:04 Dose: 0.5 mg Documented By: NAI Hydroxychloroquine Sulfate (Hydroxychloroquine Sulfate 200 Mg Tablet) 200 mg PO BID [facility] Last Admin: 07/13/22 07:39 Dose: 200 mg Documented By: ALBERT Omeprazole (Omeprazole 20 Mg Capsule.Dr) 20 mg PO DAILY@0630 [facility] Last Admin: 07/13/22 05:07 Dose: 20 mg Documented By: ABDIRAHMAN Ondansetron HCl (Ondansetron Hcl 4 Mg/2 Ml Vial) 4 mg IVPUSH Q8H PRN PRN Reason: Nausea and Vomiting Last Admin: 07/11/22 13:38 Dose: 4 mg Documented By: ALEX Oxycodone HCl (Oxycodone Hcl Er 10 Mg Tab.Er.12h) 10 mg PO BID [facility] Last Admin: 07/13/22 07:38 Dose: 10 mg Documented By: ALBERT Oxycodone HCl (Oxycodone Hcl Immed Release 5 Mg Tablet) 10 mg PO Q4H PRN PRN Reason: Pain, Moderate (Pain Scale 4-6 Last Admin: 07/13/22 07:38 Dose: 10 mg Documented By: ALBERT Pregabalin (Pregabalin 150 Mg Capsule) 150 mg PO BID [facility] Last Admin: 07/13/22 07:37 Dose: 150 mg Documented By: ALBERT Pregabalin (Pregabalin 25 Mg Capsule) 25 mg PO DAILY [facility] Last Admin: 07/13/22 07:38 Dose: 25 mg Documented By: ALBERT Sodium Chloride (0.9 % Sodium Chloride Flush 3 Ml Syringe) 3 ml IVFLUSH QSHIFT [facility] Last Admin: 07/13/22 07:39 Dose: 3 ml Documented By: ALBERT Labs CBC & Chem 7: 07/13/22 05:49 07/13/22 05:49 Labs: Laboratory Results - last 24 hr 07/13/22 07/13/22 05:49 05:49 MCV 92.2 MCH 31.1 MCHC 33.8 RDW 13.0 Plt Count 118 L MPV 10.7 Immature Gran % (Auto) 0.4 Neut % (Auto) 62.9 Lymph % (Auto) 20.5 [place] % (Auto) 14.7 H Eos % (Auto) 1.1 Baso % (Auto) 0.4 Lymph # (Auto) 1.7 [place] # (Auto) 1.2 Eos # (Auto) 0.1 Baso # (Auto) 0.0 Abs Immat Gran (auto) 0.03 Absolute Neuts (auto) 5.2 Absolute Nucleated RBC 0.000 Nucleated RBC % (auto) 0.0 Anion Gap 13 Estim Creat Clear Calc 79.8 Estimated GFR > 60 Fasting Glucose 103 H Calcium 8.0 L Assessment and Plan (1) Status post total left knee replacement: Status: Acute Plan 66-year-old woman admitted by Orthopedic surgery and is status post total knee arthroplasty ?left Total knee arthroplasty postoperative day 2 ?good pain control, further drop in hematocrit but stable Mild tachycardia due to pain ?encouraged? incentive spirometry, continue current? pain medication and stool softeners. Hypernatremia Mild likely? due to dehydration resolved s/p fluids History of trigeminal neuralgia / rheumatoid arthritis ?no acute exacerbation continue pregabalin, hydrochloroquine,and carbamazepine,hold Enbrel GERD Continue PPI DVT prophylaxis with full-dose aspirin Full code ?disposition as per Ortho, will sign off, with any questions. Quality Stroke Does the patient have a stroke diagnosis?: No VTE Prior VTE?: No VTE Risk Level:: Medical - moderate - high VTE Device Contraindication: N/A - Device Ordered VTE Drug Contraindication: N/A - Med Ordered
--- NOTE | 2022-07-13 11:48 | PM.EVENT ---
Event Note Date of Service: 07/13/22 Event Note: Call venous to assist patient due to tremors in her left hand, weakness finger oximetry 86% on room air, now 92% on 2 L and heart rate of 106 otherwise normal blood pressure At present patient is awake alert complaining of bilateral hand tremors denies chest pain no palpitation no other weakness, no numbness no headache, feels anxious Neuro exam nonfocal speech clear, bilateral fine hand tremors Heart regular Abdomen soft Lungs few basilar dry crackles likely atelectasis Assessment and plan generalized weakness tremors mild tachycardia due to anxiety also related to use of OxyContin as well as oxycodone Will discontinue OxyContin and IV Dilaudid recommend to use incentive spirometry support provided will reassess in couple hours. Reassured patient there is no acute stroke symptoms. .
[2022-07-13] MEDS: Ferrous Sulfate 324 MG TABLET.DR PO (18:19)
[2022-07-14] MEDS: oxyCODONE HCl Immed Release 5 MG TABLET 10 MG PO ×2 (03:35→10:26)
[2022-07-14 04:00] VITALS: BP 118/60; PULSE 88; RESP 19; TEMP 36.1; O2SAT 93
[2022-07-14] MEDS: Omeprazole 20 MG CAPSULE.DR PO (05:30)
[2022-07-14 06:53] VITALS: BP 112/66; PULSE 110; RESP 19; TEMP 35.9; O2SAT 91
--- NOTE | 2022-07-14 08:54 | MHC.CM.PN ---
PT MEDICALLY CLEARED FOR DISCHARGE. PT RECOMMENDS HOME VIA AMBULANCE STILL HAVING DIFFICULT NAVIGATING STAIRS. PT AWARE VIA LOG SORTING SUPERVISOR AND AGREEABLE. RN MADE AWARE. BLS BOOKED FOR 11 AM.
[2022-07-14 09:04] VITALS: BP 112/66; PULSE 110; O2SAT 91
[2022-07-14 09:10] LABS: MANUAL DIFF FLAG NO
[2022-07-14 09:18] LABS: Basophils Absolute Auto 0.1 X10*3/uL (0.0-0.2); Basophils Percent Auto 0.6 % (0-2); Eosinophils Absolute Auto 0.1 X10*3/uL (0.0-0.4); Eosinophils Percent Auto 1.8 % (0-4); Hematocrit 31.4 % (37.0-47.0); Hemoglobin 10.5 g/dl (12.0-16.0); Imm Gran Abs Auto 0.03 X10*3/uL (0.00-0.03); Imm Gran Pct Auto 0.4 % (0.0-0.4); Lymphocytes Absolute Auto 1.4 X10*3/uL (1.2-4.9); Lymphocytes Percent Auto 18.1 % (20-40); Mean Corpuscular HGB Conc 33.4 g/dl (31.0-35.0); Mean Corpuscular Hemoglobin 30.9 pg (27.0-33.0); Mean Corpuscular Volume 92.4 fL (80.0-98.0); Mean Platelet Volume 10.1 fL (9.4-12.3); Monocytes Absolute Auto 0.9 X10*3/uL (0.1-1.2); Monocytes Percent Auto 11.4 % (2-11); Neutrophils Absolute Auto 5.3 x10*3/uL (2.0-8.3); Neutrophils Percent Auto 67.7 % (45-73); Platelet Count 136 X10*3/uL (160-400); Red Cell Distribution Width 12.9 % (11.0-16.0); White Blood Count 7.8 X10*3/uL (4.8-10.8)
[2022-07-14 09:49] LABS: Anion Gap 13 (12-20); Blood Urea Nitrogen 16 mg/dL (9-16); Calcium 8.2 mg/dL (8.4-10.2); Carbon Dioxide 28 mmol/L (22-29); Chloride 102 mmol/L (96-108); Creatinine Clr Calc Pharmacy 82.3; Estimated Glomerular Filt Rate > 60; Glucose Fasting 95 mg/dL (60-99); Potassium 4.2 mmol/L (3.3-5.1); Sodium 139 mmol/L (135-145)
[2022-07-14] MEDS: Pregabalin 150 MG CAPSULE PO (10:26)
[2022-07-14] MEDS: Ferrous Sulfate 324 MG TABLET.DR PO (10:27)
[2022-07-14] MEDS: Hydroxychloroquine Sulfate 200 MG TABLET PO (10:27)
[2022-07-14] MEDS: Docusate Sodium 100 MG CAPSULE PO (10:28)
[2022-07-14] MEDS: Aspirin 325 MG TABLET PO (10:28)
[2022-07-14] MEDS: carBAMazepine 200 MG TABLET 400 MG PO (10:28)
[2022-07-14] MEDS: 0.9 % Sodium Chloride Flush 3 ML SYRINGE IVFLUSH (10:29)
--- NOTE | 2022-07-14 11:22 | HO.PM.IMPN ---
Subjective Subjective Date of Service: 07/14/22 Interval History: patient being followed for mild hypoxia, weakness, patient feeling better this morning since yesterday, noted to have symptoms of weakness since additional 25 mg of Lyrica was given for her trigeminal neuralgia, at present denies any symptoms of facial pain tenderness or headache, left knee pain is under control, oxygenation 91 % room air patient denies shortness of breath, no chest pain no lightheadedness or dizziness Review of Systems Review of Systems: Yes all other systems are reviewed and are negative Physical Exam Vital Signs: Vital Signs: Last Vital Signs Temp 96.7 F L 07/14/22 06:53 Pulse 110 H 07/14/22 09:04 Resp 19 07/14/22 06:53 BP 112/66 07/14/22 09:04 Pulse Ox 91 L 07/14/22 09:04 O2 Del Method 07/14/22 06:53 O2 Flow Rate 2 07/14/22 04:00 BMI result Body Mass Index 32.2 Const: Other: General? awake alessandro rt x3, in no acute distress.? Neck? no JVD. CVS? regul ar rate rhythm, Re spiratory lungs cl ear to auscultatio n, no respiratory distress, no wheez e, no rhonchi. Gas trointestinal abdo men soft, nontende r, bowel sounds au dible, no guarding , no rigidity. Ex tremities no? wes pheral edema. left knee dressing in place Neuro nonfoc al, normal motor s trength both upper and lower extremi ties normal speech no hand tremors S kin no rash psych appropriate affect Objective Data Active Medications Acetaminophen (Acetaminophen 325 Mg Tablet) 650 mg PO Q6H PRN PRN Reason: Pain, Mild (Pain Scale 1-3) Last Admin: 07/13/22 07:37 Dose: 650 mg Documented By: ALBERT Aspirin (Aspirin 325 Mg Tablet) 325 mg PO BID [facility] Last Admin: 07/14/22 10:28 Dose: 325 mg Documented By: MADHU Carbamazepine (Carbamazepine 200 Mg Tablet) 400 mg PO BID [facility] Last Admin: 07/14/22 10:28 Dose: 400 mg Documented By: MADHU Docusate Sodium (Docusate Sodium 100 Mg Capsule) 100 mg PO BID [facility] Last Admin: 07/14/22 10:28 Dose: 100 mg Documented By: MADHU Ferrous Sulfate (Ferrous Sulfate 324 Mg Tablet.) 324 mg PO BIDWM [facility] Last Admin: 07/14/22 10:27 Dose: 324 mg Documented By: MADHU Hydroxychloroquine Sulfate (Hydroxychloroquine Sulfate 200 Mg Tablet) 200 mg PO BID [facility] Last Admin: 07/14/22 10:27 Dose: 200 mg Documented By: MADHU Omeprazole (Omeprazole 20 Mg Capsule.) 20 mg PO DAILY@0630 [facility] Last Admin: 07/14/22 05:30 Dose: 20 mg Documented By: YAJAIRA Ondansetron HCl (Ondansetron Hcl 4 Mg/2 Ml Vial) 4 mg IVPUSH Q8H PRN PRN Reason: Nausea and Vomiting Last Admin: 07/11/22 13:38 Dose: 4 mg Documented By: ALEX Oxycodone HCl (Oxycodone Hcl Immed Release 5 Mg Tablet) 10 mg PO Q4H PRN PRN Reason: Pain, Moderate (Pain Scale 4-6 Last Admin: 07/14/22 10:26 Dose: 10 mg Documented By: MADHU Pregabalin (Pregabalin 150 Mg Capsule) 150 mg PO BID [facility] Last Admin: 07/14/22 10:26 Dose: 150 mg Documented By: MADHU Sodium Chloride (0.9 % Sodium Chloride Flush 3 Ml Syringe) 3 ml IVFLUSH QSHIFT [facility] Last Admin: 07/14/22 10:29 Dose: 3 ml Documented By: MADHU Labs CBC & Chem 7: 07/14/22 08:19 07/14/22 08:19 Labs: Laboratory Results - last 24 hr 07/14/22 07/14/22 08:19 08:19 MCV 92.4 MCH 30.9 MCHC 33.4 RDW 12.9 Plt Count 136 L MPV 10.1 Immature Gran % (Auto) 0.4 Neut % (Auto) 67.7 Lymph % (Auto) 18.1 L [place] % (Auto) 11.4 H Eos % (Auto) 1.8 Baso % (Auto) 0.6 Lymph # (Auto) 1.4 [place] # (Auto) 0.9 Eos # (Auto) 0.1 Baso # (Auto) 0.1 Abs Immat Gran (auto) 0.03 Absolute Neuts (auto) 5.3 Absolute Nucleated RBC 0.000 Nucleated RBC % (auto) 0.0 Anion Gap 13 Estim Creat Clear Calc 82.3 Estimated GFR > 60 Fasting Glucose 95 Calcium 8.2 L Assessment and Plan (1) Status post total left knee replacement: Status: Acute Plan 66-year-old woman admitted by Orthopedic surgery and is status post total knee arthroplasty ?left Total knee arthroplasty postoperative day 3 ?good pain control, further drop in hematocrit but stable, added ferrous sulfate ?Mild tachycardia due to pain and anxiety ?encouraged? incentive spirometry, continue current? pain medication and stool softeners. Hypernatremia Mild likely? due to dehydration resolved s/p fluids History of trigeminal neuralgia / rheumatoid arthritis no acute exacerbation continue pregabalin, extra 25 mg has been discontinued due to somnolence and concern for respiratory depression with underlying history of obstructive sleep apnea, continue hydrochloroquine,and carbamazepine,hold Enbrel GERD Continue PPI obstructive sleep apnea continue CPAP generalized weakness/ somnolence, low normal O2 likely related to high-dose of narcotics and Lyrica discontinued OxyContin yesterday will DC additional dose of Lyrica that was recently added due to trigeminal neuralgia recommend patient to minimize use of narcotics, to follow low-calorie diet use incentive spirometry DVT prophylaxis with full-dose aspirin Full code disposition as per Orthopedic Service Quality Stroke Does the patient have a stroke diagnosis?: No VTE Prior VTE?: No VTE Risk Level:: Medical - moderate - high VTE Device Contraindication: N/A - Device Ordered VTE Drug Contraindication: N/A - Med Ordered
== END 2022-07-14 13:46 | disposition home health service (06) | DRG 470 ==
LOC: HO.SSSA 06:03 → HO.S3 12:24
PROVIDERS: Physician Assistant; Admitting Provider Physician Assistant; PCP Internal Medicine; Visit Provider Orthopaedic Surgery
PROC: 0SRD0JA Replacement of Left Knee Joint with Synthetic Substitute, Uncemented, Open Approach (ICD-10-PCS; CPT 27447; principal; 2022-07-11 07:30)
DX: M17.12 Unilateral primary osteoarthritis, left knee (principal); E87.0 Hyperosmolality and hypernatremia; G47.33 Obstructive sleep apnea (adult) (pediatric); G50.0 Trigeminal neuralgia; M79.7 Fibromyalgia; E86.0 Dehydration; K21.9 Gastro-esophageal reflux disease without esophagitis; M05.9 Rheumatoid arthritis with rheumatoid factor, unspecified; Z20.822 Contact with and (suspected) exposure to COVID-19; Z79.899 Other long term (current) drug therapy
CPT/HCPCS: 36415; 73560; 80048; 81270; 85014; 85018; 85025; 86850; 86900; 86901; 87635; 87640; 87641; 88305; 88311; 97110; 97116; 97162; 99212; C1776; J0131; J0690; J1170; J2250; J2405; J2795; J3010

== ENCOUNTER → 2022-07-20 08:19 | Outpatient (BNVA) | payer MEDICARE, MEDICAID, SELFPAY | PROVIDERS: PCP Internal Medicine; Visit Provider Physician Assistant | DX: K76.6 Portal hypertension (principal) | CPT/HCPCS: Q3014 ==

== ENCOUNTER → 2022-07-27 12:38 | Outpatient (BNVA) | payer MEDICARE, MEDICAID, SELFPAY | PROVIDERS: PCP Internal Medicine; Visit Provider Physician Assistant | DX: Z96.652 Presence of left artificial knee joint (principal) | CPT/HCPCS: 99212 ==

== ENCOUNTER 2022-08-15 10:05 | Emergency (ER) | payer MEDICARE, MEDICAID, SELFPAY ==
--- NOTE | ~2022-08-15 | XR_ITS ---
EXAMINATION: XR KNEE, LEFT CLINICAL INFORMATION: Left knee pain status post replacement. COMPARISON: Left knee radiographs dated 07/11/2022. TECHNIQUE: Four views of the left knee. FINDINGS: The patient is status post left knee arthroplasty showing good anatomic alignment and no evidence for hardware malfunction. There is no acute fracture or dislocation. Mild prepatellar soft tissue swelling is seen. XR/XR knee LT 4V IMPRESSION: Mild prepatellar soft tissue swelling. No hardware abnormality. No acute fracture. Underlying osseous or hardware abnormality. Correlate with physical exam.
[2022-08-15 10:24] VITALS: BP 158/67; PULSE 84; RESP 16; O2SAT 97
[2022-08-15 10:35] VITALS: BP 158/67; BP 164/88; PULSE 84; PULSE 86; RESP 16; O2SAT 97; O2SAT 98; BMI 31.7
--- NOTE | 2022-08-15 11:16 | ED_ITS ---
HPI - Extremity Injury (Lower) General Chief Complaint: Extremity Injury, Lower Stated Complaint: L KNEE PAIN,FELT CRACK IN AM [place] [facility] [place]en by Provider: 08/15/22 11:08 Source: patient Mode of arrival: ambulatory Limitations: no limitations History of Present Illness HPI Narrative: Patient comes to the emergency room complaining of left-sided knee pain. Patient states that she was trying to get into the bathtub, bend her knee and sudden started having sharp pain on the lateral aspect of left knee. Patient did not fall, did not have any injury. Patient had a left knee replacement approximately 1 month ago on 07/12/2022 Related Data Home Medications Medication Instructions Recorded Confirmed cholecalciferol (vitamin D3) 50 5,000 unit PO DAILY 06/29/22 07/10/22 mcg (2,000 unit) capsule pregabalin 150 mg capsule 1 cap PO BID 07/04/22 07/10/22 carbamazepine 200 mg tablet 400 mg PO BID 07/10/22 07/11/22 Previous Rx's Medication Instructions Recorded pyridoxine (vitamin B6) 100 mg 100 mg PO DAILY 90 days #90 tabs 01/10/22 tablet omeprazole 20 mg capsule,delayed 20 mg PO DAILY #90 caps 04/18/22 release etanercept 50 mg/mL (1 mL) 50 mg subcut QWEEK #4 mL 04/24/22 subcutaneous pen injector (Enbrel SureClick) hydroxychloroquine 200 mg tablet 200 mg PO BID #60 tabs 06/19/22 aspirin 325 mg tablet 325 mg PO BID 42 days #84 tabs 07/12/22 docusate sodium 100 mg capsule 100 mg PO BID 30 days #60 caps 07/12/22 oxycodone 10 mg tablet 10 mg PO Q4H PRN Pain, Moderate 07/12/22 (Pain Scale 4-6 7 days #42 tabs celecoxib 200 mg capsule (Celebrex) 200 mg PO BID 30 days #60 caps 07/27/22 oxycodone 5 mg tablet 5 mg PO BID PRN pain #7 tabs 08/15/22 Allergies Allergy/AdvReac Type Severity Reaction Status Date / Time No Known Allergies Allergy Verified 07/27/22 12:57 [No Known Allergies*] Review of Systems Review of Systems: Constitutional : No Weight loss, No Fever, No Chills, No Night Sweats, No Fatigue, No Malaise ENT/Mouth : No Hearing loss, No Ear Pain, No Nasal Congestion, No Sinus Pain, No Hoarseness, No sore throat, No Rhinorrhea, No Swallowing Difficulty Eyes: No Eye Pain, No Swelling, No Redness, No Foreign Body, No Discharge, No Vision Changes Cardiovascular : No Chest Pain, No SOB, No Dyspnea on Exertion, No Orthopnea, No Edema, No Palpitations Respiratory : No Cough, No Sputum, No Wheezing, No Smoke Exposure, No Dyspnea Gastrointestinal : No Nausea, No Vomiting, No Diarrhea, No Constipation, No abdominal Pain, No Hematochezia, No Melena Genitourinary : no irregular bleeding, No Dysuria, No Urinary Frequency, No Hematuria, No Urinary Incontinence, No Urgency, No Flank Pain, No Urinary Flow Changes, No Hesitancy Musculoskeletal : Complaining of left-sided knee pain, No Myalgias, No Joint Swelling Skin : No Skin Lesions, No rash Neuro : No Weakness, No Numbness, No Paresthesias, No Loss of Consciousness, No Dizziness, No Headache Psych : No Anxiety/Panic, No Depression, No SI/HI/AH/VH, No Social Issues, Heme/Lymph: No Bruising, No Bleeding,No Lymphadenopathy Endocrine : No Polyuria, No Polydipsia, No Temperature Intolerance PMFSH Past Medical History Medical History Autoimmune urticaria Cervical spondylosis without myelopathy Fibromyalgia Gastroesophageal reflux disease Hiatal hernia Impaired fasting glucose Insomnia Kidney stone on left side Loose right total knee arthroplasty Low back pain at multiple sites Lumbago with sciatica, left side Morbid obesity due to excess calories Nephrolithiasis Osteoarthritis Renal calculi Seronegative rheumatoid arthritis Shoulder pain, right Sleep apnea Splenic artery aneurysm Tailor's bunion of left foot Trigeminal neuralgia of right side of face Varices of other sites Surgical History History of arthroscopy of right shoulder History of bunionectomy of left great toe History of colonoscopy History of cranioplasty History of esophagogastroduodenoscopy (EGD) History of laparoscopic cholecystectomy History of shoulder surgery Status post laser lithotripsy of ureteral calculus Status post right knee replacement Family History Family History Father No problems noted. Mother Hypertension Maternal Grandmother No problems noted. Maternal Grandfather No problems noted. Paternal Grandmother No problems noted. Paternal Grandfather No problems noted. Maternal Aunt Diabetes Sister No problems noted. Son No problems noted. Daughter No problems noted. Social History Social History Household Members: Spouse and Other Household Members Other:: mother,daughter Housing: House Are you a primary career technical counselor to a significant other at home: No Do you presently have visiting nurse or other home services: Yes ([employer]) Alcohol intake: never Patient Tobacco Use Status: Never used Tobacco Smoked in Last 30 Days: No e-Cigarette/Vaping Use: Never Used Use of substances other than those prescribed or required for medical reasons: No Advance Directives: Yes Advance Directives Information Provided: Yes Advance Directives on File: No Patient : No service: No Current occupational status: unemployed Current occupation: rt handed Cognitive needs: No Hearing needs: No Vision needs: No Physical Exam Vital Signs: Vital Signs: Last Vital Signs Pulse 84 08/15/22 10:35 Resp 16 08/15/22 10:35 BP 158/67 H 08/15/22 10:35 Pulse Ox 97 08/15/22 10:35 O2 Del Method 08/15/22 10:35 BMI result Body Mass Index 31.7 Const: Other: Appearance: Alert. Oriented X3. No acute distress. Eyes: Pupils equal, round and reactive to light. ENT: Pharynx normal. Neck: Normal inspection. Neck supple. No lymph nodes noted. No crepitus CVS: Normal heart rate and rhythm. Pulses normal. Normal S1 and S2 Respiratory: No respiratory distress. Breath sounds normal. No Wheezing. No rales Abdomen: Soft and nontender. No rigidity. No distention. Skin: Skin warm and dry. Normal skin color. Normal skin turgor. Extremities: No lower extremity edema. Left knee joint seems to have a small effusion, no erythema, no additional warmth. Patient able to flex and extend the knee with pain, pain to palpation over the lateral aspect of the left knee. Neuro: Oriented X 3. No motor deficit. No sensory deficit. Moving all extremi ties. No slurred speech. CN 2 through 12 grossly intact Psych: calm, cooperative, normal affect Course Course Course Narrative: Hematology pending, x-rays pending. Patient was given 1 dose of p.o. oxycodone Patient's white blood cell count within normal limits, x-ray shows normal alignment Patient offered crutches. Mass PAt was checked, patient had a prescription of oxycodone approximately 1 month ago Patient instructed to follow-up with orthopedics. Medications Administered Discontinued Medications Generic Name Dose Route Start Last Admin Trade Name Nuris PRN Reason Stop Dose Admin Oxycodone HCl 5 mg 08/15/22 11:15 08/15/22 12:04 Oxycodone Hcl Immed Release 5 Mg Tablet PO 08/15/22 11:16 5 mg ONCE ONE Administration MDM - Extremity Injury (Lower) Lab Data Result diagrams: 08/15/22 11:42 08/15/22 11:42 Labs: Lab Results 08/15/22 08/15/22 Range/Units 11:42 11:42 WBC 5.0 (4.8-10.8) X10*3/uL RBC 4.19 L D (4.20-5.50) X10*6/uL Hgb 13.2 D (12.0-16.0) g/dl Hct 39.5 D (37.0-47.0) % MCV 94.3 (80.0-98.0) fL MCH 31.5 (27.0-33.0) pg MCHC 33.4 (31.0-35.0) g/dl RDW 13.4 (11.0-16.0) % Plt Count 182 D (160-400) X10*3/uL MPV 10.0 (9.4-12.3) fL Immature Gran % (Auto) 0.4 (0.0-0.4) % Neut % (Auto) 51.7 (45-73) % Lymph % (Auto) 34.8 (20-40) % [place] % (Auto) 8.3 (2-11) % Eos % (Auto) 3.6 (0-4) % Baso % (Auto) 1.2 (0-2) % Lymph # (Auto) 1.8 (1.2-4.9) X10*3/uL [place] # (Auto) 0.4 (0.1-1.2) X10*3/uL Eos # (Auto) 0.2 (0.0-0.4) X10*3/uL Baso # (Auto) 0.1 (0.0-0.2) X10*3/uL Abs Immat Gran (auto) 0.02 (0.00-0.03) X10*3/uL Absolute Neuts (auto) 2.6 (2.0-8.3) x10*3/uL Absolute Nucleated RBC 0.000 (0.0-0.012) X10*3/uL Nucleated RBC % (auto) 0.0 (0.0-0.2) /100WBC Sodium 143 (135-145) mmol/L Potassium 4.3 (3.3-5.1) mmol/L Chloride 107 (96-108) mmol/L Carbon Dioxide 26 (22-29) mmol/L Anion Gap 14 (12-20) BUN 14 (9-16) mg/dL Creatinine 0.68 (0.5-1.4) mg/dL Estim Creat Clear Calc 78.0 Estimated GFR > 60 Random Glucose 100 (60-115) mg/dL Calcium 9.1 D (8.4-10.2) mg/dL Imaging Data Knee x-ray: Radiologist's impression: INDINGS: The patient is status post left knee arthroplasty showing good anatomic alignment and no evidence for hardware malfunction. There is no acute fracture or dislocation. Mild prepatellar soft tissue swelling is seen. XR/XR knee LT 4V IMPRESSION: Mild prepatellar soft tissue swelling. No hardware abnormality. No acute fracture. Underlying osseous or hardware abnormality. Correlate with physical exam. ? Discharge Plan Discharge Clinical Impression: Knee pain, left Patient Disposition: Home, Self-Care Instructions: Arthralgia (ED), Crutch Instructions (ED) Additional Instructions: Please follow-up with your primary care physician tomorrow. If you have any wor sening or new symptoms, please return to the emergency room or call 911 Prescriptions: New oxycodone 5 mg tablet 5 mg PO BID PRN (Reason: pain) Qty: 7 0RF Rx Instructions: Partial Fill upon patient request. No Action omeprazole 20 mg capsule,delayed release(DR/EC) 20 mg PO DAILY Qty: 90 0RF Enbrel SureClick 50 mg/mL (1 mL) pen injector 50 mg subcut QWEEK Qty: 4 0RF hydroxychloroquine 200 mg tablet 200 mg PO BID Qty: 60 3RF pregabalin 150 mg capsule 1 cap PO BID aspirin 325 mg Tablet 325 mg PO BID 42 Days Qty: 84 0RF oxycodone 10 mg tablet 10 mg PO Q4H PRN (Reason: Pain, Moderate (Pain Scale 4-6) 7 Days Qty: 42 0RF Rx Instructions: Partial Fill upon patient request. docusate sodium 100 mg Capsule 100 mg PO BID 30 Days Qty: 60 0RF cholecalciferol (vitamin D3) 50 mcg (2,000 unit) capsule 5,000 unit PO DAILY pyridoxine (vitamin B6) 100 mg tablet 100 mg PO DAILY 90 Days Qty: 90 1RF carbamazepine 200 mg tablet 400 mg PO BID celecoxib [Celebrex] 200 mg capsule 200 mg PO BID 30 Days Qty: 60 3RF
[2022-08-15 11:45] LABS: MANUAL DIFF FLAG NO
[2022-08-15 11:56] LABS: Basophils Absolute Auto 0.1 X10*3/uL (0.0-0.2); Basophils Percent Auto 1.2 % (0-2); Eosinophils Absolute Auto 0.2 X10*3/uL (0.0-0.4); Eosinophils Percent Auto 3.6 % (0-4); Hematocrit 39.5 % (37.0-47.0); Hemoglobin 13.2 g/dl (12.0-16.0); Imm Gran Abs Auto 0.02 X10*3/uL (0.00-0.03); Imm Gran Pct Auto 0.4 % (0.0-0.4); Lymphocytes Absolute Auto 1.8 X10*3/uL (1.2-4.9); Lymphocytes Percent Auto 34.8 % (20-40); Mean Corpuscular HGB Conc 33.4 g/dl (31.0-35.0); Mean Corpuscular Hemoglobin 31.5 pg (27.0-33.0); Mean Corpuscular Volume 94.3 fL (80.0-98.0); Monocytes Absolute Auto 0.4 X10*3/uL (0.1-1.2); Monocytes Percent Auto 8.3 % (2-11); Neutrophils Absolute Auto 2.6 x10*3/uL (2.0-8.3); Neutrophils Percent Auto 51.7 % (45-73); Platelet Count 182 X10*3/uL (160-400); Red Blood Count 4.19 X10*6/uL (4.20-5.50); Red Cell Distribution Width 13.4 % (11.0-16.0)
[2022-08-15 12:02] LABS: Anion Gap 14 (12-20); Blood Urea Nitrogen 14 mg/dL (9-16); Calcium 9.1 mg/dL (8.4-10.2); Carbon Dioxide 26 mmol/L (22-29); Chloride 107 mmol/L (96-108); Estimated Glomerular Filt Rate > 60; Glucose Random 100 mg/dL (60-115); Potassium 4.3 mmol/L (3.3-5.1); Sodium 143 mmol/L (135-145)
[2022-08-15] MEDS: oxyCODONE HCl Immed Release 5 MG TABLET PO (12:04)
[2022-08-15 14:00] VITALS: BP 148/70; PULSE 80; O2SAT 99
== END 2022-08-15 14:41 | disposition home or self-care (01) ==
PROVIDERS: Emergency Provider Emergency Medicine; PCP Internal Medicine
DX: M25.562 Pain in left knee (principal); E66.9 Obesity, unspecified; Z68.31 Body mass index [BMI] 31.0-31.9, adult; Z96.652 Presence of left artificial knee joint
CPT/HCPCS: 36415; 73564; 80048; 85025; 99283; 99284

== ENCOUNTER → 2022-08-17 10:34 | Outpatient (BNVA) | payer MEDICARE, MEDICAID, SELFPAY | PROVIDERS: PCP Internal Medicine; Visit Provider Physician Assistant | DX: Z47.1 Aftercare following joint replacement surgery (principal); Z96.652 Presence of left artificial knee joint | CPT/HCPCS: 99212 ==

== ENCOUNTER 2022-08-17 12:23 | Outpatient (REF) | payer MEDICARE, MEDICAID, SELFPAY ==
--- NOTE | ~2022-08-17 | XR_ITS ---
EXAMINATION: LEFT KNEE CLINICAL INFORMATION: Pain COMPARISON: 08/15/2022 and July 2020 TECHNIQUE: Multiple views of left knee including bilateral upright knees. FINDINGS: Multiple views of left knee revealed well aligned bilateral knees prosthesis with newly placed prosthesis on the left. The prosthesis is well aligned. There is soft tissue swelling seen. XR/XR knee standing BI IMPRESSION: Minimally displaced left knee prosthesis with soft tissue edema
--- NOTE | ~2022-08-17 | XR_ITS ---
EXAMINATION: LEFT KNEE CLINICAL INFORMATION: Pain COMPARISON: 08/15/2022 and July 2020 TECHNIQUE: Multiple views of left knee including bilateral upright knees. FINDINGS: Multiple views of left knee revealed well aligned bilateral knees prosthesis with newly placed prosthesis on the left. The prosthesis is well aligned. There is soft tissue swelling seen. XR/XR knee LT 2V IMPRESSION: Minimally displaced left knee prosthesis with soft tissue edema
== END 2022-08-17 12:24 | disposition home or self-care (01) ==
LOC: HO.HOSX 12:23
PROVIDERS: Visit Provider Physician Assistant
DX: M25.561 Pain in right knee (principal); M25.562 Pain in left knee
CPT/HCPCS: 73560; 73565; 99212

== ENCOUNTER → 2022-09-11 10:31 | Outpatient (BNVA) | payer MEDICARE, MEDICAID, SELFPAY | PROVIDERS: PCP Internal Medicine; Referring Provider Internal Medicine; Visit Provider Nurse Practitioner Family | DX: M06.00 Rheumatoid arthritis without rheumatoid factor, unspecified site (principal); M17.12 Unilateral primary osteoarthritis, left knee; M75.41 Impingement syndrome of right shoulder; M26.629 Arthralgia of temporomandibular joint, unspecified side | CPT/HCPCS: 99212 ==

== ENCOUNTER → 2022-09-14 14:14 | Outpatient (BNVA) | payer MEDICARE, MEDICAID, SELFPAY | PROVIDERS: PCP Internal Medicine; Visit Provider Orthopaedic Surgery | DX: Z47.1 Aftercare following joint replacement surgery (principal); Z96.652 Presence of left artificial knee joint | CPT/HCPCS: 99212 ==

== ENCOUNTER 2022-09-18 14:00 | Outpatient (REF) | payer MEDICARE, MEDICAID, SELFPAY ==
--- NOTE | ~2022-09-18 | XR_ITS ---
EXAMINATION: XR HAND, RIGHT XR HAND, LEFT CLINICAL INFORMATION: Bilateral hand pain. COMPARISON: Radiographs bilateral hands 02/07/2016, left thumb 03/11/2019. TECHNIQUE: Each hand is imaged in 3 views. There are total of 6 views. FINDINGS: Right: Bony mineralization is within normal. No periarticular demineralization. No fracture or dislocation or destructive process. The ulnar variance is neutral. The carpus shows no focal joint narrowing or erosive change or chondrocalcinosis. MCP joints are unremarkable. There is mild narrowing of the PIP joints and moderate narrowing DIP joints. No erosive changes. Left: Bony mineralization is within normal. No periarticular demineralization. No fracture or dislocation or destructive process. The ulnar variance is neutral. The carpus shows no focal joint narrowing or erosive change or chondrocalcinosis. MCP joints are unremarkable. There is mild narrowing of the PIP joints and moderate narrowing DIP joints. No erosive changes. XR/XR hand RT min 3V IMPRESSION: -Moderate narrowing bilateral DIP joints and mild narrowing bilateral PIP joints. -No erosive changes.
--- NOTE | ~2022-09-18 | XR_ITS ---
EXAMINATION: XR HAND, RIGHT XR HAND, LEFT CLINICAL INFORMATION: Bilateral hand pain. COMPARISON: Radiographs bilateral hands 02/07/2016, left thumb 03/11/2019. TECHNIQUE: Each hand is imaged in 3 views. There are total of 6 views. FINDINGS: Right: Bony mineralization is within normal. No periarticular demineralization. No fracture or dislocation or destructive process. The ulnar variance is neutral. The carpus shows no focal joint narrowing or erosive change or chondrocalcinosis. MCP joints are unremarkable. There is mild narrowing of the PIP joints and moderate narrowing DIP joints. No erosive changes. Left: Bony mineralization is within normal. No periarticular demineralization. No fracture or dislocation or destructive process. The ulnar variance is neutral. The carpus shows no focal joint narrowing or erosive change or chondrocalcinosis. MCP joints are unremarkable. There is mild narrowing of the PIP joints and moderate narrowing DIP joints. No erosive changes. XR/XR hand LT min 3V IMPRESSION: -Moderate narrowing bilateral DIP joints and mild narrowing bilateral PIP joints. -No erosive changes.
[2022-09-18 14:52] LABS: Alanine Aminotransferase 14 U/L (0-31); Aspartate Amino Transferase 14 U/L (5-31); Blood Urea Nitrogen 15 mg/dL (9-16); C Reactive Protein 0.17 mg/dL (< or = 0.50); Estimated Glomerular Filt Rate > 60
[2022-09-18 14:58] LABS: Erythrocyte Sedimentation Rate 16 MM/HR (0-20)
== END 2022-09-18 14:01 | disposition home or self-care (01) ==
LOC: HO.LAB 14:00
PROVIDERS: PCP Internal Medicine; Visit Provider Nurse Practitioner Family
DX: I86.8 Varicose veins of other specified sites (principal); M06.00 Rheumatoid arthritis without rheumatoid factor, unspecified site; M79.641 Pain in right hand; M79.642 Pain in left hand; Z79.899 Other long term (current) drug therapy
CPT/HCPCS: 36415; 73130; 82565; 84450; 84460; 84520; 85652; 86140

== ENCOUNTER 2022-09-20 09:56 | Outpatient (REF) | payer MEDICARE, MEDICAID, SELFPAY ==
--- NOTE | ~2022-09-20 | US_ITS ---
EXAMINATION: US RETROPERITONEAL LIMITED (RENAL ONLY) CLINICAL INFORMATION: Calculus of kidney. COMPARISON: CT abdomen and pelvis 03/21/2022. Renal ultrasound 09/20/2021 TECHNIQUE: Real-time imaging of the kidneys. FINDINGS: RIGHT KIDNEY: 12.9 x 6.2 x 5.8 cm (SAG x AP x TRV). The kidney is normal in size, contour, and echogenicity. Renal cortical thickness is normal. No calculi or focal parenchymal lesions. No hydronephrosis. LEFT KIDNEY: 12.0 x 5.1 x 2.2 cm (SAG x AP x TRV). The kidney is normal in size, contour, and echogenicity. Renal cortical thickness is normal. No focal parenchymal lesions or hydronephrosis. Similar 3 mm echogenic nonshadowing focus without twinkle artifact in the left mid pole which may reflect a vascular reflector previously 2 mm. No definite shadowing stone. US/US renal BI IMPRESSION: Similar 3 mm echogenic nonshadowing focus without twinkle artifact in the left kidney which may reflect a vascular reflector. No definite shadowing stone.
== END 2022-09-20 09:57 | disposition home or self-care (01) ==
LOC: HO.US 09:56
DX: N20.0 Calculus of kidney (principal)
CPT/HCPCS: 76775

== ENCOUNTER 2022-09-28 08:51 | Outpatient (REF) | payer MEDICARE, MEDICAID, SELFPAY ==
--- NOTE | ~2022-09-28 | XR_ITS ---
EXAMINATION: XR KNEES, BILATERAL STANDING AP XR KNEE, LEFT CLINICAL INFORMATION: Knee pain COMPARISON: Standing AP knees and left knee radiographs 08/17/2022 TECHNIQUE: Bilateral standing AP view of the knees is performed. Additional lateral and axial patella views of the left knee are also obtained. FINDINGS: Right: Normal bony mineralization. Prior knee arthroplasty. Hardware intact. No destructive process or osteolysis. No acute changes. Left: Prior knee arthroplasty. Hardware intact. No destructive process or osteolysis. Normal bony mineralization. No interval fracture or dislocation. Again, there is moderate to large suprapatellar effusion and edema in the region of Hoffa's fat pad. Some calcification distal to the patellar is similar to prior study. No lateralization or definite tilting patella. XR/XR knee LT 2V IMPRESSION: Right: -Prior knee arthroplasty. Hardware intact. No destructive process or osteolysis. Left: -Prior knee arthroplasty. Hardware intact. No destructive process or osteolysis. -Moderate to large suprapatellar effusion and edema in region of Hoffa's fat pad.
--- NOTE | ~2022-09-28 | XR_ITS ---
EXAMINATION: XR KNEES, BILATERAL STANDING AP XR KNEE, LEFT CLINICAL INFORMATION: Knee pain COMPARISON: Standing AP knees and left knee radiographs 08/17/2022 TECHNIQUE: Bilateral standing AP view of the knees is performed. Additional lateral and axial patella views of the left knee are also obtained. FINDINGS: Right: Normal bony mineralization. Prior knee arthroplasty. Hardware intact. No destructive process or osteolysis. No acute changes. Left: Prior knee arthroplasty. Hardware intact. No destructive process or osteolysis. Normal bony mineralization. No interval fracture or dislocation. Again, there is moderate to large suprapatellar effusion and edema in the region of Hoffa's fat pad. Some calcification distal to the patellar is similar to prior study. No lateralization or definite tilting patella. XR/XR knee standing BI IMPRESSION: Right: -Prior knee arthroplasty. Hardware intact. No destructive process or osteolysis. Left: -Prior knee arthroplasty. Hardware intact. No destructive process or osteolysis. -Moderate to large suprapatellar effusion and edema in region of Hoffa's fat pad.
== END 2022-09-28 08:52 | disposition home or self-care (01) ==
LOC: HO.HOSX 08:51
PROVIDERS: Visit Provider Orthopaedic Surgery
DX: M25.511 Pain in right shoulder (principal); S89.92XA Unspecified injury of left lower leg, initial encounter; Z96.652 Presence of left artificial knee joint
CPT/HCPCS: 20610; 73560; 73565; 99212; J1100

== ENCOUNTER 2022-10-04 12:00 | Outpatient (RCR) | payer MEDICARE, MEDICAID, SELFPAY ==
--- NOTE | 2022-07-27 14:17 | MHC.PT.EP ---
[facility] [place] [facility] [employer] [facility] [address] Barrie Pereira [address] [phone] F: [phone] F: [phone] F: [phone] F: [phone] Physical Therapy Plan of Care Date of Evaluation: Date of Surgery: 07/11/22 Diagnosis: S/P LEFT TKA Assessment: 66 YO FEMALE REF TO PT S/P LEFT TKR ON 07/11/22- SHE HAS A H/O PRIOR Rt TKA APPROX 4 YRS AGO. SHE RESIDES W HER FAMILY IN A 1 LEVEL HOME AND IS CURRENTLY AMB W A W/WALKER ALTOUGH SHE PRESENTED TODAY W/O ANY ASST DEVICE. OBJECTIVE FINDINGS: LIMITED AROM Lt KNEE, TIGHT PSOAS MM PENNY AND DECR ANKLE DF PENNY; DECR STRENGTH IN PROX / LUMBOPELVIC AND Lt LE, POST-OP PAIN IN LEFT KNEE ,AND HEALING ANT Lt KNEE INCISION. FUNCTIONALLY, SHE HAS COMPENSATORY GAIT MECHANICS, MODIFIED STAIR MGMT, DECR STANDING, SLEEPING, AND DECR OUMAR TO ADLs REQ Lt KNEE FLEX. Pt IS A VERY GOOD PT CANDIDATE TO GUIDE HER IN HER POST-OP TKR COURSE, ADDRESSING THE ABOVE FINDINGS, PAIN MGMT, AND MAXIMIZING FUNCTIONAL INDEPENDENCE. Frequency and Duration: The patient will be seen 2 x WK x 10 WKS Short Term Goals: *Pt'S LEFT KNEE PAIN DECR TO 2-3/10 *Pt INCREASE Lt KNEE ROM -> 0* EXTEN AND PROGRESSIVELY TO 120* FLEX *INCR FLEXINB IN PSOAS/ CALF MM TO IMPROVE EFFICIENCY OF GAIT ON LEVEL AND STAIRS *REDUCE Lt LE EDEMA AND MONITOR/ ADDRESS SCAR MOB NEEDED Assisted Goals: Pt INDEP W HEP PROGRESSION AND SELF-SX MGMT STRATEGIES IN 10 WKS Pt RESUME REG ADLs EVIDENT W IMPROVED LEFI SCORE BY 8-10 POINTS (AT EVAL ) IN 10 WKS Pt INCR LUMBOPELVIC/HIP/ LEFT LE STRENGTH BY 1 GRADE IN 10 WKS Treatment Plan: Modalities to reduce pain, spasms and effusion. Manual therapy to restore motion and function. Therapeutic exercise to improve strength and flexibility. Neuromuscular re-education for posture and balance. Therapeutic activities to return to functional activities of daily living. Electronically signed by: AMALIA STAHL PT Please sign and return to therapist. Thank you for your referral.
--- NOTE | 2022-10-10 12:00 | MHC.PT.DC ---
[facility] [place] Office [place] Office [place] Office [address] Barrie Pereira 140 [facility] [phone] F: [phone] F: [phone] F: [phone] F: [phone] Physical Therapy Discharge Report Diagnosis: S/P LEFT TKA Date of Surgery: 07/11/22 Date of Evaluation: 07/27/22 Date of Discharge: 10/04/22 Treatments to Date: 12 Cancellations to Date: No Shows to Date: 3 Discharge Status: Achieved Goals Improved Function Independent with HEP Discharge Summary: Pt HAS PROGRESSED WELL IN HER POST-OP COURSE OF PT, HER LAST APPT WAS 10/04/22 AND THE FINDINGS AT THAT TIME WERE: Pt independent w/HEP Pt amb w/o AD w/proper GT pattern. -left knee AROM 0-120* -LEFT LE Strength 5/5 knee flex and ext Electronically signed by: AMALIA STAHL,PT Please sign and return to therapist. Thank you for your referral.
== END 2022-10-10 12:01 | disposition home or self-care (01) ==
LOC: HO.PT 12:00
PROVIDERS: Visit Provider Physician Assistant
DX: Z96.652 Presence of left artificial knee joint (principal)
CPT/HCPCS: 97110; 97116; 97140; 97162; 97530

== ENCOUNTER → 2022-10-05 10:22 | Outpatient (BNVA) | payer MEDICARE, MEDICAID, SELFPAY | PROVIDERS: PCP Internal Medicine; Visit Provider Nurse Practitioner Family | DX: N20.0 Calculus of kidney (principal) | CPT/HCPCS: 99212 ==

== ENCOUNTER 2022-10-06 13:37 | Outpatient (REF) | payer MEDICARE, MEDICAID, SELFPAY ==
--- NOTE | ~2022-10-06 | MM_ITS ---
EXAMINATION: MM SCREENING DIGITAL BREAST TOMOSYNTHESIS, BILATERAL CLINICAL INFORMATION: Screening. Asymptomatic. The lifetime risk of breast cancer based on the Tyrer-Cuzick Model is 10%. COMPARISON: Mammography: 07/09/2021, 11/10/2019, 03/24/2019, 10/25/2018 TECHNIQUE: Digital breast tomosynthesis is performed in both the craniocaudal and mediolateral oblique views along with computer-aided detection (CAD). Synthesized 2D images are generated from the tomosynthesis. FINDINGS: There are scattered areas of fibroglandular density (ACR BI-RADS breast composition Category b). There are no significant masses, abnormal calcifications, or other abnormalities. Parenchymal pattern is similar to prior studies. There is no developing density or architectural abnormality. The axilla and skin contours are unremarkable. No significant changes. MM/MM tomosynthesis screening BI IMPRESSION: No mammographic evidence of malignancy. ASSESSMENT: BI-RADS 1: Negative RECOMMENDATION: Routine annual mammography screening. This patient's information was entered into a reminder system with a target due date for their next mammogram.
== END 2022-10-06 13:38 | disposition home or self-care (01) ==
LOC: HO.MAMMO 13:37
PROVIDERS: PCP Internal Medicine; Visit Provider Internal Medicine
DX: Z12.31 Encounter for screening mammogram for malignant neoplasm of breast (principal)
CPT/HCPCS: 77063; 77067

== ENCOUNTER 2022-10-27 09:30 | Outpatient (REF) | payer MEDICARE, MEDICAID, SELFPAY ==
--- NOTE | ~2022-10-27 | XR_ITS ---
EXAMINATION: XR knee LT 2V, XR knee standing BI CLINICAL INFORMATION: Reason for Exam M25.569 - Pain in unspecified knee COMPARISON: None. TECHNIQUE: 2 views of the left knee and standing views bilateral knee XR/XR knee LT 2V FINDINGS/IMPRESSION: * Status post bilateral total knee arthroplasties. No evidence of hardware complication of the left knee arthroplasty. Mild left suprapatellar effusion.
--- NOTE | ~2022-10-27 | XR_ITS ---
EXAMINATION: XR knee LT 2V, XR knee standing BI CLINICAL INFORMATION: Reason for Exam M25.569 - Pain in unspecified knee COMPARISON: None. TECHNIQUE: 2 views of the left knee and standing views bilateral knee XR/XR knee standing BI FINDINGS/IMPRESSION: * Status post bilateral total knee arthroplasties. No evidence of hardware complication of the left knee arthroplasty. Mild left suprapatellar effusion.
== END 2022-10-27 09:31 | disposition home or self-care (01) ==
LOC: HO.HOSX 09:30
PROVIDERS: Visit Provider Orthopaedic Surgery
DX: Z47.1 Aftercare following joint replacement surgery (principal); Z96.652 Presence of left artificial knee joint
CPT/HCPCS: 73560; 73565

== ENCOUNTER 2022-11-17 09:18 | Outpatient (AMB) | payer MEDICARE, MEDICAID, SELFPAY ==
--- NOTE | 2022-11-17 09:38 | A.OFFPC_ITS ---
Vital Signs 11/17/22 09:40 Height 5 ft 1 in Weight 169 lb BMI 31.9 BP 118/70 Blood Pressure Location Lt brachial Position Sitting Pulse 86 Pulse Source Pulse Oximeter Pulse Oximetry (%) 96 Oxygen Delivery Method Room Air Intake Visit Reasons: Lower Right Back Pain Intake Note: Pt is here today c/o Rt hip down to Rt leg pain pain [id number] Allergies No Known Allergies [No Known Allergies*] Allergy (Verified 11/17/22 09:57) Medication List - Last Reconciled 11/17/22 by Lakshmi Rouse MD carbamazepine 400 mg PO BID cholecalciferol (vitamin D3) 5,000 units PO DAILY diclofenac sodium 20 mg/gram /actuation(2 %) 2 pumps topical BID etanercept (Enbrel SureClick) 50 mg subcut QWEEK hydroxychloroquine 300 mg (1.5 x 200 mg) PO DAILY omeprazole 20 mg PO DAILY pregabalin 1 cap PO BID pregabalin 25 mg PO BID pyridoxine (vitamin B6) 100 mg PO DAILY 90 days Tobacco use date assessed: 11/17/22 Fall risk assessment: 1 Fall in past year Last assessed Fall Risk: 11/17/22 HPI Lower Right Back Pain HPI Details 67 PFSH Medical History (Updated 11/17/22 @ 10:14 by Lakshmi Rouse MD) Autoimmune urticaria Cervical spondylosis without myelopathy Fibromyalgia Gastroesophageal reflux disease Hiatal hernia Impaired fasting glucose Insomnia Kidney stone on left side Loose right total knee arthroplasty Low back pain at multiple sites Lumbago with sciatica, left side Lumbago with sciatica, right side Morbid obesity due to excess calories Nephrolithiasis Osteoarthritis Recurrent kidney stones Renal calculi Seronegative rheumatoid arthritis Shoulder pain, right Sleep apnea Splenic artery aneurysm Tailor's bunion of left foot Trigeminal neuralgia of right side of face Varices of other sites Surgical History History of arthroscopy of right shoulder History of bunionectomy of left great toe History of colonoscopy History of cranioplasty History of esophagogastroduodenoscopy (EGD) History of laparoscopic cholecystectomy History of shoulder surgery Status post laser lithotripsy of ureteral calculus Status post right knee replacement Family History Father No problems noted. Mother Hypertension Maternal Grandmother No problems noted. Maternal Grandfather No problems noted. Paternal Grandmother No problems noted. Paternal Grandfather No problems noted. Maternal Aunt Diabetes Sister No problems noted. Son No problems noted. Daughter No problems noted. 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 How often do you have a drink containing alcohol?: Never Total Score: 0 JOSÉ MANUEL-7 AMB Questionnaire JOSÉ MANUEL-7 Date JOSÉ MANUEL - 7 assessed: 10/25/21 Source: Developed by Drs. Raza Nova, Kassandra Munoz, Steven Velasco and colleagues, with an educational nyla from [employer]. Physical exam (Primary Care) Vital Signs: Last Vital Signs Pulse 86 11/17/22 09:40 BP 118/70 11/17/22 09:40 Pulse Ox 96 11/17/22 09:40 Oxygen Delivery Method Room Air 11/17/22 09:40 BMI result Body Mass Index 31.9 Tobacco/Smoking Status: Tobacco use Status Tobacco use date assessed 11/17/22 11/17/22 09:45 Patient Tobacco Use Status Never used Tobacco 11/17/22 09:45 e-Cigarette/Vaping Use Never Used 11/17/22 09:45 Thrive Assessment: Date of Thrive Assessment Date Thrive assessed 10/25/21 11/17/22 09:45 Assessment and Plan Assessment & Plan (1) Lumbago with sciatica, right side: Code(s): M54.41 - Lumbago with sciatica, right side Plan: Referral to physical therapy ordered. Rx sent for tizanidine 4 mg per tablet to take 1/2 to 1 tablet twice a day as needed for painful muscle spasm. Discussed possible side effects of the medication which may include drowsiness. Advised to try massaging absorbine Jr to right lower back 3 times a day as needed (2) Achilles tendinitis, right leg: Code(s): M76.61 - Achilles tendinitis, right leg Plan: Due to adjacent diclofenac gel to affected area 3 to 4 times a day as needed. Orders: Orders PT Evaluation and Treatment Today M54.41 - Lumbago with sciatica, right side Coding Level of Care Code Est Pt Level 3 (68262) Diagnoses Lumbago with sciatica, right side M54.41 Achilles tendinitis, right leg M76.61
[2022-11-17 09:40] VITALS: BP 118/70; PULSE 86; O2SAT 96; BMI 31.9
== END 2022-11-17 11:34 | disposition home or self-care (01) ==
LOC: HO.HMGC 09:18
PROVIDERS: PCP Internal Medicine; Visit Provider Internal Medicine
DX: M54.41 Lumbago with sciatica, right side (principal); M76.61 Achilles tendinitis, right leg
CPT/HCPCS: 99499

== ENCOUNTER → 2022-12-28 12:06 | Outpatient (BNVA) | payer OTHER, SELFPAY | PROVIDERS: PCP Internal Medicine; Visit Provider Orthopaedic Surgery | DX: Z96.652 Presence of left artificial knee joint (principal) | CPT/HCPCS: 99212 ==

== ENCOUNTER 2023-01-01 11:00 | Outpatient (RCR) | payer OTHER, SELFPAY ==
--- NOTE | 2022-12-15 15:15 | MHC.PT.EP ---
[facility] [place] Office [place] Office [place] Office [address] Barrie Pereira [address] [phone] F: [phone] F: [phone] F: [phone] F: [phone] Physical Therapy Plan of Care Date of Evaluation: Date of Surgery: Diagnosis: LUMBAGO W SCIATICA, Rt Assessment: 67 YO FEMALE REF TO PT W 1 YR H/O PROGRESSIVE PENNY LBP- OF IMPORTANCE, Pt HAS A H/O Rt TKA AND Rt RC REPAIN WITHING THE PAST 2 YEARS. SHE NOTES SHE HAS BECOME SEDENTARY. OBJECTIVELY, Pt HAS DECR POSTURAL AWARENESS, AROM DEFICITS IN PENNY HIPS/ TRUNK, (+) SOFT TISSUE IRRIT IN PENNY THORACOLUMBAR PS MM, DECR LUMBOPELVIC STAB, AND FLUCTUATING PAIN IN RIGHT LS. FUNCTIONALLY, Pt HAS DECR OUMAR TO PROLONGED WALKING, STANDING, PROLONGED SITTING, SQUATTING, AND LIFTING/ CARRYING OBJECTS. Pt DENIES BOWEL/ BLADDER SIGNS/SXS. SHE IS A GOOD CANDIDATE FOR PT TO ADDRESS THE ABOVE FINDINGS, DEV A HEP, PAIN MGMT, SOFT TISSUE EASE, AND SX MGMT SHE RESUMES ADLs AND FITNESS. Frequency and Duration: The patient will be seen 2 x WK x 5 WKS Short Term Goals: *DECR LBP TO 2-3/10 *Pt INDEP SELF-CORRECT POSTURE TO REDUCE LB TISSUE STRESS *IMPROVE HIP FLEXIBILITY *INITIATE LUMBOPELVIC STAB EXER Lvn Goals: Pt INDEP W HEP PROGRESSION AND SELF-SX MGMT STRATEGIES IN 6 WKS Pt RESUME REG ADLs AND COMPLY W FITNESS EVIDENT W IMPROVED OSWESTRY SCORE (AT EVAL 34/50 ) IN 6 WKS Pt IMPROVE LUMBOPELVIC / PROXIMAL LEs STRENGTH W ADLs Treatment Plan: Modalities to reduce pain, spasms and effusion. Manual therapy to restore motion and function. Therapeutic exercise to improve strength and flexibility. Neuromuscular re-education for posture and balance. Therapeutic activities to return to functional activities of daily living. Electronically signed by: Dionne Smith ,PT Please sign and return to therapist. Thank you for your referral.
--- NOTE | 2023-02-06 15:27 | MHC.PT.DC ---
[facility] [place] Office [place] Office [place] Office [address] Barrie Pereira [address] [phone] F: [phone] F: [phone] F: [phone] F: [phone] Physical Therapy Discharge Report Diagnosis: LUMBAGO W SCIATICA, Rt Date of Surgery: Date of Evaluation: 12/15/22 Date of Discharge: 02/06/23 Treatments to Date: 4 Cancellations to Date: 2 No Shows to Date: 1 Discharge Status: Patient Elected to Stop Visit Non-compliance Discharge Summary: Pt HAD DIFFIC MEETING HER PT GOALS DUE TO OTHER MEDICAL DXS- LBP, KNEE PAIN, SH PAIN- THE Pt HAS A THOROUGH HEP AND HAS RECEIVED IN DEPTH EDUC RE POSTURAL AWARENESS AND SX MANAGEMENT TECHN. THE Pt DID NOT ATTEND THE LAST FEW PT APPTS AND IS D/C PER THE PT DEPT ATTENDANCE POLICY. SHE WOULD BENEFIT FROM AN MD FOLLOW-UP IF HER MULTI REGIONAL SXS PERSIST. Electronically signed by: AMALIA STAHL,PT Please sign and return to therapist. Thank you for your referral.
== END 2023-02-06 15:26 | disposition home or self-care (01) ==
LOC: HO.PT 11:00
PROVIDERS: PCP Internal Medicine; Visit Provider Internal Medicine
DX: M54.41 Lumbago with sciatica, right side (principal)
CPT/HCPCS: 97162; 97530

== ENCOUNTER → 2023-01-17 15:53 | Outpatient (BNVA) | payer OTHER, SELFPAY | PROVIDERS: PCP Internal Medicine; Visit Provider Nurse Practitioner Family | DX: M06.00 Rheumatoid arthritis without rheumatoid factor, unspecified site (principal); M79.7 Fibromyalgia; Z96.652 Presence of left artificial knee joint | CPT/HCPCS: 99212 ==

== ENCOUNTER 2023-01-28 18:22 | Emergency (ER) | payer OTHER, SELFPAY ==
--- NOTE | ~2023-01-28 | CT_ITS ---
EXAMINATION: CT ABDOMEN AND PELVIS WITHOUT CONTRAST CLINICAL INFORMATION: Left upper abdominal pain. COMPARISON: 03/21/2022. TECHNIQUE: Multidetector volumetric imaging was performed from the superior aspect of the liver through the pubic symphysis without contrast per request. Sagittal and coronal reformatted images were obtained on the technologist workstation. This CT examination was performed using dose optimization techniques as appropriate, variously including the following: *Automated exposure control *Adjustment of mA and/or kV according to patient size (this includes techniques or standardized protocols for targeted exams where dose is matched to indication/reason for exam; i.e. extremities or head) *Use of iterative reconstruction technique DLP: 566 mGy-cm. FINDINGS: LUNG BASES: Minimal dependent atelectasis. Small hiatal hernia. LIVER, GALLBLADDER, BILIARY TREE: The non-contrast liver is normal in size, shape, and attenuation. No focal hepatic lesion or biliary ductal dilatation is present. The gallbladder surgically absent. PANCREAS: Unremarkable. SPLEEN: Spleen itself is unremarkable with prominent splenic varicosities again noted ADRENAL GLANDS: Unremarkable. KIDNEYS AND URETERS: The kidneys are normal in size, shape, and attenuation. No hydronephrosis, hydroureter, or calculi seen. No perinephric stranding. BLADDER: Decompressed GASTROINTESTINAL TRACT: Few scattered colonic diverticula are seen but no colonic wall thickening or pericolonic inflammatory changes to suggest diverticulitis. Appendix is not visualized and may be surgically absent. There are dilated loops of small bowel in the left upper quadrant containing air-fluid levels and debris/food no discrete transition point seen. ABDOMINAL WALL: No significant hernia is appreciated. LYMPHOVASCULAR STRUCTURES: Mild vascular calcification within the aorta iliac system. No skin made of splenic varicosities extending to a left-sided splenorenal shunt not able to be defined further on this noncontrast study.. PELVIC VISCERA: Unremarkable. OSSEUS STRUCTURES: Unremarkable. CT/CT abdomen pelvis wo IV con IMPRESSION: Dilated loops of small bowel in the left upper quadrant containing air-fluid levels and debris/food of uncertain significance or etiology. No discrete transition point. I do not appreciate any obvious obstructive changes to the bowel. Stool and air seen throughout the colon. I do not appreciate any acute intra-abdominal process otherwise. Chronic appearing changes as described above.
[2023-01-28 19:07] VITALS: BP 154/79; PULSE 106; RESP 18; TEMP 36.1; O2SAT 97; BMI 32.0
--- NOTE | 2023-01-28 19:24 | ED.GENADULT ---
HPI - General Adult General Chief complaint: Abdominal Pain <Mike Garza - Last Filed: 01/28/23 19:24> Stated complaint: abd pain <Mike Garza - Last Filed: 01/28/23 19:24> Time Seen by Provider: 01/28/23 20:16 <Mike Garza - Last Filed: 01/28/23 19:24> Source: patient <Smooth Gramajo MD - Last Filed: 01/29/23 01:07> Mode of arrival: ambulatory <Smooth Gramajo MD - Last Filed: 01/29/23 01:07> Limitations: no limitations <Smooth Gramajo MD - Last Filed: 01/29/23 01:07> History of Present Illness HPI narrative: Patient with history of kidney stone comes here for nausea and vomiting and diarrhea for last 3 days vomiting has improved and had no bowel movement today but still having the pain in left upper abdomen patient able take p.o. fluids with slight increase in discomfort no fever no chills no urinary symptom <Smooth Gramajo MD - Last Filed: 01/29/23 01:07> Related Data Home medications: Home Medications Medication Instructions Recorded Confirmed cholecalciferol (vitamin D3) 50 5,000 unit PO DAILY 06/29/22 11/17/22 mcg (2,000 unit) capsule pregabalin 150 mg capsule 1 cap PO BID 07/04/22 11/17/22 carbamazepine 200 mg tablet 400 mg PO BID 07/10/22 11/17/22 pregabalin 25 mg capsule 25 mg PO BID 10/05/22 11/17/22 diclofenac sodium 20 2 pump topical BID 11/17/22 11/17/22 mg/gram/actuation (2 %) topical soln metered-dose pump Previous Rx's Medication Instructions Recorded pyridoxine (vitamin B6) 100 mg 100 mg PO DAILY 90 days #90 tabs 01/10/22 tablet omeprazole 20 mg capsule,delayed 20 mg PO DAILY #90 caps 04/18/22 release hydroxychloroquine 200 mg tablet 300 mg PO DAILY #45 tabs 09/11/22 etanercept 50 mg/mL (1 mL) 50 mg subcut QWEEK #4 mL 12/01/22 subcutaneous pen injector (Enbrel SureClick) cefuroxime axetil 250 mg tablet 250 mg PO BID 7 days #14 tabs 01/28/23 dicyclomine 20 mg tablet 20 mg PO QID PRN abdominal pain 01/28/23 #20 tabs <Mike Garza - Last Filed: 01/28/23 19:24> Allergies/adverse reactions: Allergies Allergy/AdvReac Type Severity Reaction Status Date / Time No Known Allergies Allergy Verified 01/28/23 19:07 [No Known Allergies*] <Mike Garza - Last Filed: 01/28/23 19:24> Review of Systems Review of Systems: Yes all other systems are reviewed and are negative <Smooth Gramajo MD - Last Filed: 01/29/23 01:07> [facility] Past Medical History Medical History: Medical History Autoimmune urticaria Cervical spondylosis without myelopathy Fibromyalgia Gastroesophageal reflux disease Hiatal hernia Impaired fasting glucose Insomnia Kidney stone on left side Loose right total knee arthroplasty Low back pain at multiple sites Lumbago with sciatica, left side Lumbago with sciatica, right side Morbid obesity due to excess calories Nephrolithiasis Osteoarthritis Recurrent kidney stones Renal calculi Seronegative rheumatoid arthritis Shoulder pain, right Sleep apnea Splenic artery aneurysm Tailor's bunion of left foot Trigeminal neuralgia of right side of face Varices of other sites <Mike Garza - Last Filed: 01/28/23 19:24> Surgical History: Surgical History History of arthroscopy of right shoulder History of bunionectomy of left great toe History of colonoscopy History of cranioplasty History of esophagogastroduodenoscopy (EGD) History of laparoscopic cholecystectomy History of shoulder surgery Status post laser lithotripsy of ureteral calculus Status post right knee replacement <Mike Garza - Last Filed: 01/28/23 19:24> Family History Family History: Family History Father No problems noted. Mother Hypertension Maternal Grandmother No problems noted. Maternal Grandfather No problems noted. Paternal Grandmother No problems noted. Paternal Grandfather No problems noted. Maternal Aunt Diabetes Sister No problems noted. Son No problems noted. Daughter No problems noted. 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) Alcohol intake: never Patient Tobacco Use Status: Never used Tobacco e-Cigarette/Vaping Use: Never Used Advance Directives: No Advance Directives Information Provided: No service: No Current occupational status: unemployed Current occupation: rt handed Cognitive needs: No Hearing needs: No Vision needs: No <Mike Garza - Last Filed: 01/28/23 19:24> Physical Exam ED Vital Signs: Vital Signs - 24 hr 01/28/23 19:07 Temperature 96.9 F Pulse Rate 106 H Respiratory Rate 18 Blood Pressure 154/79 H Pulse Oximetry 97 Oxygen Delivery Method Room Air BMI result Body Mass Index 32.0 <Mike Garza - Last Filed: 01/28/23 19:24> Vital Signs - 24 hr 01/28/23 19:07 Temperature 96.9 F Pulse Rate 106 H Respiratory Rate 18 Blood Pressure 154/79 H Pulse Oximetry 97 Oxygen Delivery Method Room Air BMI result Body Mass Index 32.0 <Smooth Gramajo MD - Last Filed: 01/29/23 01:07> Appearance: Alert. Oriented X3. No acute distress. ENT: Pharynx normal. Oral Mucosa moist Neck: Normal inspection. Neck supple. CVS: Normal heart rate and rhythm. Pulses normal. Respiratory: No respiratory distress. Equal air entry bilateral, no wheezing/rales/rhonchi Abdomen: Soft mild discomfort in left upper quadrant, no rebound tenderness or guarding, Bowel sounds are present, no mass palpable, mild left CVA tenderness Skin: Skin warm and dry. Normal skin color. Normal skin turgor. Extremities: No lower extremity edema. No calf tenderness Neuro: Oriented X 3. <Smooth Gramajo MD - Last Filed: 01/29/23 01:07> Course Course Course Narrative: RME- 67-year-old female presents for evaluation of left lower abdominal pain that radiates to her back. Complains of vomiting and diarrhea. Plan for labs and further workup as indicated <Mike Garza - Last Filed: 01/28/23 19:24> Medications Administered Discontinued Medications Generic Name Dose Route Start Last Admin Trade Name Freq PRN Reason Stop Dose Admin Cefuroxime Axetil 500 mg 01/28/23 22:05 01/28/23 22:09 Cefuroxime Axetil 500 Mg Tablet PO 01/28/23 22:06 500 mg ONCE ONE Administration Dicyclomine HCl 20 mg 01/28/23 20:27 01/28/23 20:47 Dicyclomine Hcl 10 Mg Capsule PO 01/28/23 20:28 20 mg ONCE ONE Administration Ketorolac Tromethamine 60 mg 01/28/23 21:34 01/28/23 22:06 Ketorolac Tromethamine 60 Mg/2 Ml Vial IM 01/28/23 21:35 60 mg ONCE ONE Administration <Mike Garza - Last Filed: 01/28/23 19:24> Medications Administered Discontinued Medications Generic Name Dose Route Start Last Admin Trade Name Freq PRN Reason Stop Dose Admin Cefuroxime Axetil 500 mg 01/28/23 22:05 01/28/23 22:09 Cefuroxime Axetil 500 Mg Tablet PO 01/28/23 22:06 500 mg ONCE ONE Administration Dicyclomine HCl 20 mg 01/28/23 20:27 01/28/23 20:47 Dicyclomine Hcl 10 Mg Capsule PO 01/28/23 20:28 20 mg ONCE ONE Administration Ketorolac Tromethamine 60 mg 01/28/23 21:34 01/28/23 22:06 Ketorolac Tromethamine 60 Mg/2 Ml Vial IM 01/28/23 21:35 60 mg ONCE ONE Administration <Smooth Gramajo MD - Last Filed: 01/29/23 01:07> Medical Decision Making Medical Decision Making [facility] Narrative: Patient with Gastroenteritis feeling better now able to take p.o. fluids and discomfort in left upper abdomen CT scan was negative for acute workup showed UTI discharge patient home on Ceftin <Smooth Gramajo MD - Last Filed: 01/29/23 01:07> Lab Data MDM Lab Attestation statement: I reviewed the patient's lab results. <Smooth Gramajo MD - Last Filed: 01/29/23 01:07> Result Diagrams: 01/28/23 19:40 01/28/23 19:40 <Mike Garza - Last Filed: 01/28/23 19:24> Labs: Lab Results 01/28/23 01/28/23 01/28/23 Range/Units 19:40 19:40 21:25 WBC 9.0 (4.8-10.8) X10*3/uL RBC 5.07 D (4.20-5.50) X10*6/uL Hgb 16.0 D (12.0-16.0) g/dl Hct 46.8 (37.0-47.0) % MCV 92.3 (80.0-98.0) fL MCH 31.6 (27.0-33.0) pg MCHC 34.2 (31.0-35.0) g/dl RDW 12.9 (11.0-16.0) % Plt Count 165 (160-400) X10*3/uL MPV 9.6 (9.4-12.3) fL Immature Gran % (Auto) 0.1 (0.0-0.4) % Neut % (Auto) 63.0 (45-73) % Lymph % (Auto) 22.2 (20-40) % [place] % (Auto) 12.9 H (2-11) % Eos % (Auto) 1.4 (0-4) % Baso % (Auto) 0.4 (0-2) % Lymph # (Auto) 2.0 (1.2-4.9) X10*3/uL [place] # (Auto) 1.2 (0.1-1.2) X10*3/uL Eos # (Auto) 0.1 (0.0-0.4) X10*3/uL Baso # (Auto) 0.0 (0.0-0.2) X10*3/uL Abs Immat Gran (auto) 0.01 (0.00-0.03) X10*3/uL Absolute Neuts (auto) 5.6 (2.0-8.3) x10*3/uL Absolute Nucleated RBC 0.000 (0.0-0.012) X10*3/uL Nucleated RBC % (auto) 0.0 (0.0-0.2) /100WBC Sodium 140 (135-145) mmol/L Potassium 4.5 (3.3-5.1) mmol/L Chloride 105 (96-108) mmol/L Carbon Dioxide 24 (22-29) mmol/L Anion Gap 16 (12-20) BUN 28 H (9-16) mg/dL Creatinine 1.07 (0.5-1.4) mg/dL Estim Creat Clear Calc 47.2 Estimated GFR 51 Random Glucose 106 (60-115) mg/dL Calcium 9.4 (8.4-10.2) mg/dL Total Bilirubin 0.5 (0.0-1.0) mg/dL AST 28 (5-31) U/L ALT 37 H (0-31) U/L Alkaline Phosphatase 88 (39-117) U/L Total Protein 7.9 (6.5-8.0) g/dL Albumin 4.3 (3.5-5.0) g/dL Lipase 18 (8-78) U/L Urine Color Dark Yellow Urine Appearance Cloudy Urine pH 5.0 (5.0-9.0) Ur Specific Delong >= 1.030 H (1.005-1.025) Urine Protein 30 (1+) H (Neg-Trace) mg/dL Urine Glucose (UA) Negative (Negative) mg/dL Urine Ketones 15 (Negative) mg/dL Urine Blood Negative (Negative) Urine Nitrite Negative (Negative) Ur Leukocyte Esterase Small (1+) H (Negative) Urine RBC 0-2 (0-2) /HPF Urine WBC 11-20 H (0-5) /HPF Ur Squamous Epith Cells 11-20 (0-2) /HPF Urine Bacteria 1+ (None Seen) Hyaline Casts >20 (0-2) /LPF Granular Casts Present <Mike Garza - Last Filed: 01/28/23 19:24> Lab Results 01/28/23 01/28/23 01/28/23 Range/Units 19:40 19:40 21:25 WBC 9.0 (4.8-10.8) X10*3/uL RBC 5.07 D (4.20-5.50) X10*6/uL Hgb 16.0 D (12.0-16.0) g/dl Hct 46.8 (37.0-47.0) % MCV 92.3 (80.0-98.0) fL MCH 31.6 (27.0-33.0) pg MCHC 34.2 (31.0-35.0) g/dl RDW 12.9 (11.0-16.0) % Plt Count 165 (160-400) X10*3/uL MPV 9.6 (9.4-12.3) fL Immature Gran % (Auto) 0.1 (0.0-0.4) % Neut % (Auto) 63.0 (45-73) % Lymph % (Auto) 22.2 (20-40) % [place] % (Auto) 12.9 H (2-11) % Eos % (Auto) 1.4 (0-4) % Baso % (Auto) 0.4 (0-2) % Lymph # (Auto) 2.0 (1.2-4.9) X10*3/uL [place] # (Auto) 1.2 (0.1-1.2) X10*3/uL Eos # (Auto) 0.1 (0.0-0.4) X10*3/uL Baso # (Auto) 0.0 (0.0-0.2) X10*3/uL Abs Immat Gran (auto) 0.01 (0.00-0.03) X10*3/uL Absolute Neuts (auto) 5.6 (2.0-8.3) x10*3/uL Absolute Nucleated RBC 0.000 (0.0-0.012) X10*3/uL Nucleated RBC % (auto) 0.0 (0.0-0.2) /100WBC Sodium 140 (135-145) mmol/L Potassium 4.5 (3.3-5.1) mmol/L Chloride 105 (96-108) mmol/L Carbon Dioxide 24 (22-29) mmol/L Anion Gap 16 (12-20) BUN 28 H (9-16) mg/dL Creatinine 1.07 (0.5-1.4) mg/dL Estim Creat Clear Calc 47.2 Estimated GFR 51 Random Glucose 106 (60-115) mg/dL Calcium 9.4 (8.4-10.2) mg/dL Total Bilirubin 0.5 (0.0-1.0) mg/dL AST 28 (5-31) U/L ALT 37 H (0-31) U/L Alkaline Phosphatase 88 (39-117) U/L Total Protein 7.9 (6.5-8.0) g/dL Albumin 4.3 (3.5-5.0) g/dL Lipase 18 (8-78) U/L Urine Color Dark Yellow Urine Appearance Cloudy Urine pH 5.0 (5.0-9.0) Ur Specific [place] >= 1.030 H (1.005-1.025) Urine Protein 30 (1+) H (Neg-Trace) mg/dL Urine Glucose (UA) Negative (Negative) mg/dL Urine Ketones 15 (Negative) mg/dL Urine Blood Negative (Negative) Urine Nitrite Negative (Negative) Ur Leukocyte Esterase Small (1+) H (Negative) Urine RBC 0-2 (0-2) /HPF Urine WBC 11-20 H (0-5) /HPF Ur Squamous Epith Cells 11-20 (0-2) /HPF Urine Bacteria 1+ (None Seen) Hyaline Casts >20 (0-2) /LPF Granular Casts Present <Smooth Gramajo MD - Last Filed: 01/29/23 01:07> Discharge Plan Discharge Clinical Impression: Gastroenteritis, Acute UTI (urinary tract infection) <Mike Garza - Last Filed: 01/28/23 19:24> Patient Disposition: Home, Self-Care <Mike Garza - Last Filed: 01/28/23 19:24> Instructions: Urinary Tract Infection in Women (ED), Gastroenteritis (ED) <Mike Garza - Last Filed: 01/28/23 19:24> Additional Instructions: Drink plenty of fluids Antibiotic as advised for urine tract infection Bentyl for abdominal spasm Follow with PCP if not better <Mike Garza - Last Filed: 01/28/23 19:24> Prescriptions: New cefuroxime axetil 250 mg tablet 250 mg PO BID 7 Days Qty: 14 0RF dicyclomine 20 mg tablet 20 mg PO QID PRN (Reason: abdominal pain) Qty: 20 0RF No Action omeprazole 20 mg capsule,delayed release(DR/EC) 20 mg PO DAILY Qty: 90 0RF Enbrel SureClick 50 mg/mL (1 mL) pen injector 50 mg subcut QWEEK Qty: 4 2RF pregabalin 150 mg capsule 1 cap PO BID cholecalciferol (vitamin D3) 50 mcg (2,000 unit) capsule 5,000 unit PO DAILY diclofenac sodium 20 mg/gram /actuation(2 %) solution in metered pump w/vishnu 2 pump topical BID Rx Instructions: apply to single affected knee pyridoxine (vitamin B6) 100 mg tablet 100 mg PO DAILY 90 Days Qty: 90 1RF pregabalin 25 mg capsule 25 mg PO BID carbamazepine 200 mg tablet 400 mg PO BID hydroxychloroquine 200 mg tablet 300 mg PO DAILY Qty: 45 3RF <Mike Garza - Last Filed: 01/28/23 19:24> Interventions: ED Discharge Assessment Last Done: 01/28/23 22:15 <Mike Garza - Last Filed: 01/28/23 19:24> Discharge Date/Time: 01/28/23 22:26 <Mike Garza - Last Filed: 01/28/23 19:24>
[2023-01-28 19:47] LABS: MANUAL DIFF FLAG NO
[2023-01-28 19:49] LABS: Basophils Percent Auto 0.4 % (0-2); Eosinophils Absolute Auto 0.1 X10*3/uL (0.0-0.4); Eosinophils Percent Auto 1.4 % (0-4); Hematocrit 46.8 % (37.0-47.0); Imm Gran Abs Auto 0.01 X10*3/uL (0.00-0.03); Imm Gran Pct Auto 0.1 % (0.0-0.4); Lymphocytes Percent Auto 22.2 % (20-40); Mean Corpuscular HGB Conc 34.2 g/dl (31.0-35.0); Mean Corpuscular Hemoglobin 31.6 pg (27.0-33.0); Mean Corpuscular Volume 92.3 fL (80.0-98.0); Mean Platelet Volume 9.6 fL (9.4-12.3); Monocytes Absolute Auto 1.2 X10*3/uL (0.1-1.2); Monocytes Percent Auto 12.9 % (2-11); Neutrophils Absolute Auto 5.6 x10*3/uL (2.0-8.3); Platelet Count 165 X10*3/uL (160-400); Red Blood Count 5.07 X10*6/uL (4.20-5.50); Red Cell Distribution Width 12.9 % (11.0-16.0)
[2023-01-28 20:05] LABS: Alanine Aminotransferase 37 U/L (0-31); Albumin Level 4.3 g/dL (3.5-5.0); Alkaline Phosphatase 88 U/L (39-117); Anion Gap 16 (12-20); Aspartate Amino Transferase 28 U/L (5-31); Bilirubin Total 0.5 mg/dL (0.0-1.0); Blood Urea Nitrogen 28 mg/dL (9-16); Calcium 9.4 mg/dL (8.4-10.2); Carbon Dioxide 24 mmol/L (22-29); Chloride 105 mmol/L (96-108); Creatinine Clr Calc Pharmacy 47.2; Estimated Glomerular Filt Rate 51; Glucose Random 106 mg/dL (60-115); Lipase 18 U/L (8-78); Potassium 4.5 mmol/L (3.3-5.1); Sodium 140 mmol/L (135-145); Total Protein 7.9 g/dL (6.5-8.0)
[2023-01-28] MEDS: Dicyclomine HCl 10 MG CAPSULE 20 MG PO (20:47)
--- NOTE | 2023-01-28 20:48 | PC.NURSE ---
pt resting comfortably on stretcher at this time, reporting mild abdominal pain that feels like acid coming up the throat
[2023-01-28 21:33] LABS: Appearance Urine Cloudy; Color Urine Dark Yellow; Glucose Urine UA Negative (Negative); Leukocyte Esterase Urine Small (1+) (Negative); Nitrite Urine Negative (Negative); Specific Gravity - Urine >= 1.030 (1.005-1.025); UMIC TRIGGER UACC YES; Urine Blood Negative (Negative); Urine Ketones 15 mg/dL (Negative); Urine Protein 30 (1+) mg/dL (Neg-Trace)
[2023-01-28 21:49] LABS: Bacteria Urine 1+ (None Seen); Granular Casts Urine Present; Hyaline Casts Urine >20 /LPF (0-2); RBC Urine 0-2 /HPF (0-2); UACC Culture Trigger YES
[2023-01-28] MEDS: Ketorolac Tromethamine 60 MG/2 ML VIAL IM (22:06)
== END 2023-01-28 22:26 | disposition home or self-care (01) ==
PROVIDERS: Physician Assistant; Emergency Provider Internal Medicine; PCP Internal Medicine
DX: K52.9 Noninfective gastroenteritis and colitis, unspecified (principal); N39.0 Urinary tract infection, site not specified; Z79.899 Other long term (current) drug therapy
CPT/HCPCS: 36415; 74176; 80053; 81001; 83690; 85025; 87086; 96372; 99283; 99284; J1885

== ENCOUNTER 2023-01-31 10:25 | Outpatient (AMB) | payer OTHER, SELFPAY ==
[2023-01-31 10:37] VITALS: BP 114/64; PULSE 100; O2SAT 92; BMI 31.8
--- NOTE | 2023-01-31 10:37 | A.OFFPC_ITS ---
<Statement entered by Lakshmi Rouse MD - 03/04/25 14:22> This note has been administratively?closed. Vital Signs 01/31/23 10:37 Height 5 ft Weight 163 lb 2 oz BMI 31.8 BP 114/64 Blood Pressure Location Rt brachial Position Sitting Pulse 100 Pulse Source Pulse Oximeter Pulse Oximetry (%) 92 Oxygen Delivery Method Room Air Intake Visit Reasons: [facility] f/u GI and vertigo Intake Note: Pt is here today for [facility] ER f/u GI and vertigo Allergies hydroxychloroquine Adverse Reaction (Intermediate, Verified 01/14/25 16:57) Questionable retinopathy Tobacco use date assessed: 01/31/23 Fall risk assessment: 2 + Falls in past year Last assessed Fall Risk: 01/31/23 [facility] Medical History Intermittent lightheadedness Intertrigo Vitamin D deficiency Recurrent kidney stones Sleep apnea Splenic artery aneurysm Shoulder pain, right Trigeminal neuralgia of right side of face Seronegative rheumatoid arthritis Loose right total knee arthroplasty Gastroesophageal reflux disease Hiatal hernia Tailor's bunion of left foot Fibromyalgia Osteoarthritis Impaired fasting glucose Insomnia Cervical spondylosis without myelopathy Autoimmune urticaria Morbid obesity due to excess calories Surgical History S/P hip replacement History of esophagogastroduodenoscopy (EGD) History of colonoscopy History of arthroscopy of right shoulder History of laparoscopic cholecystectomy Status post laser lithotripsy of ureteral calculus History of bunionectomy of left great toe History of cranioplasty History of shoulder surgery Status post right knee replacement Family History Father Emphysema of lung Mother Hypertension Maternal Grandmother No problems noted. Maternal Grandfather No problems noted. Paternal Grandmother No problems noted. Paternal Grandfather No problems noted. Maternal Aunt Diabetes Sister No problems noted. Son No problems noted. Daughter No problems noted. Social History Household Members: Spouse and Family Household Members Other:: mother,daughter Housing: House Are you a primary home care consultant to a significant other at home: No Do you presently have visiting nurse or other home services: No Alcohol intake: never Patient Tobacco Use Status: Never used Tobacco e-Cigarette/Vaping Use: Never Used service: No Current occupational status: unemployed Current occupation: rt handed Cognitive needs: No Hearing needs: No Vision needs: No Questionnaire Thrive Questionnaire Date Thrive assessed: 10/25/21 AUDIT C Alcohol Use Questionnaire (AUDIT-C) 1. How often do you have a drink containing alcohol?: Never Total Score: 0 JOSÉ MANUEL-7 AMB Questionnaire JOSÉ MANUEL-7 Date JOSÉ MANUEL - 7 assessed: 10/25/21 Source: Developed by Drs. Raza Nova, Kassandra Munoz, Steven Velasco and colleagues, with an educational nyla from [employer]. Physical exam (Primary Care) Vital Signs: Last Vital Signs Pulse 100 01/31/23 10:37 BP 114/64 01/31/23 10:37 Pulse Ox 92 01/31/23 10:37 Oxygen Delivery Method Room Air 01/31/23 10:37 BMI result Body Mass Index 31.8 Tobacco/Smoking Status: Tobacco use Status Tobacco use date assessed 01/31/23 01/31/23 10:41 Patient Tobacco Use Status Never used Tobacco 01/31/23 10:41 e-Cigarette/Vaping Use Never Used 01/31/23 10:41 Thrive Assessment: Date of Thrive Assessment Date Thrive assessed 10/25/21 01/31/23 10:41 Coding Level of Care Code Admin Sign Off/No Billing Diagnoses Hx: UTI (urinary tract infection) Z87.440 Gastroesophageal reflux disease K21.9 Nausea & vomiting R11.2
== END 2023-01-31 12:39 | disposition home or self-care (01) ==
LOC: HO.HMGC 10:25
PROVIDERS: PCP Internal Medicine; Visit Provider Internal Medicine
DX: Z87.440 Personal history of urinary (tract) infections (principal); K21.9 Gastro-esophageal reflux disease without esophagitis; R11.2 Nausea with vomiting, unspecified
CPT/HCPCS: 99499

== ENCOUNTER 2023-02-01 11:31 | Observation (INO) | payer OTHER, SELFPAY ==
--- NOTE | ~2023-02-01 | XR_ITS ---
EXAMINATION: XR ABDOMEN KUB CLINICAL INDICATION: Low suspicion obstruction/free air. COMPARISON: Multiple priors, most recent CT abdomen/pelvis dated 01/28/2023. TECHNIQUE: AP views of the abdomen. FINDINGS: Redemonstration of mildly dilated central small bowel loops, similar when compared to the prior examination. Air and stool are seen within the colon. Findings could represent ileus versus a partial small bowel obstruction. Right upper quadrant surgical clips. Calcification related to splenic artery aneurysm, unchanged. No acute osseous abnormality. XR/XR KUB IMPRESSION: Mildly dilated central small bowel loops, similar when compared to the prior examination. Air and stool are seen within the colon. Findings could represent ileus versus a partial small bowel obstruction.
--- NOTE | ~2023-02-01 | CT_ITS ---
EXAMINATION: CT ABDOMEN AND PELVIS WITHOUT CONTRAST CLINICAL INFORMATION: Worsening abdominal pain. Rule out small bowel obstruction. COMPARISON: 01/28/2023 TECHNIQUE: Multidetector volumetric imaging was performed from the superior aspect of the liver through the pubic symphysis. Sagittal and coronal reformatted images were obtained on the technologist's workstation. This CT examination was performed using dose optimization techniques as appropriate, variously including the following: *Automated exposure control *Adjustment of mA and/or kV according to patient size (this includes techniques or standardized protocols for targeted exams where dose is matched to indication/reason for exam; i.e. extremities or head) *Use of iterative reconstruction technique DLP: 595 mGy-cm FINDINGS: LUNG BASES: Bibasilar atelectasis. Normal heart size. LIVER, GALLBLADDER, AND BILIARY TREE: The liver is normal in size, shape, and attenuation. No focal hepatic lesion or biliary ductal dilatation is present. Cholecystectomy. PANCREAS: Unremarkable. SPLEEN: Unremarkable. ADRENAL GLANDS: Unremarkable. KIDNEYS AND URETERS: The kidneys are normal in size, shape, and attenuation. No hydronephrosis, hydroureter, or calculi seen. No perinephric stranding. BLADDER: Unremarkable. GASTROINTESTINAL TRACT: Normal appearance of the stomach. Fluid-filled prominence of the small bowel proximally. There is gradual transition to decompressed small bowel with no focal abrupt transition point. Normal appendix. Gas and stool in the colon. Normal caliber of the colon. Mild diverticulosis without diverticulitis. ABDOMINAL WALL: No significant hernia is appreciated. LYMPH NODES: Normal. VASCULAR: Normal caliber aorta with mild atherosclerotic calcification. PELVIC VISCERA: The uterus and adnexa are unremarkable. OSSEOUS STRUCTURES: No acute or suspicious osseous abnormality. Mild degenerative changes throughout the spine. Moderate degenerative change of both hips. CT/CT abdomen pelvis wo IV con IMPRESSION: Fluid-filled prominence of the proximal small bowel with gradual transition to decompressed small bowel. No abrupt transition point. This could represent ileus or enteritis. Partially obstructive process possible. Overall this is similar to prior. Fleischner guidelines were followed.
[2023-02-01 11:37] VITALS: BP 127/72; PULSE 99; RESP 19; TEMP 36.6; O2SAT 99; BMI 30.6
--- NOTE | 2023-02-01 11:43 | ED.ABDPAIN ---
HPI - Abdominal Pain General Chief Complaint: Abdominal Pain <RHONDA Smart - Last Filed: 02/01/23 11:45> Stated Complaint: abd pain <RHONDA Smart - Last Filed: 02/01/23 11:45> Time Seen by Provider: 02/01/23 18:19 <RHONDA Smart - Last Filed: 02/01/23 11:45> Source: patient <Rosi Bower MD - Last Filed: 02/01/23 23:26> Mode of arrival: ambulatory <Rosi Bower MD - Last Filed: 02/01/23 23:26> Limitations: no limitations <Rosi Bower MD - Last Filed: 02/01/23 23:26> History of Present Illness HPI narrative: Patient comes to the emergency room complaining of 4 days of abdominal pain. Patient was seen here a few days ago, diagnosed with a UTI and gastroenteritis. Patient states that her UTI symptoms have been getting better but she is still having diffuse abdominal pain. No nausea vomiting or diarrhea. <Rosi Bower MD - Last Filed: 02/01/23 23:26> Related Data Home Medications: Home Medications Medication Instructions Recorded Confirmed cholecalciferol (vitamin D3) 50 5,000 unit PO DAILY 06/29/22 11/17/22 mcg (2,000 unit) capsule pregabalin 150 mg capsule 1 cap PO BID 07/04/22 11/17/22 carbamazepine 200 mg tablet 400 mg PO BID 07/10/22 11/17/22 pregabalin 25 mg capsule 25 mg PO BID 10/05/22 11/17/22 diclofenac sodium 20 2 pump topical BID 11/17/22 11/17/22 mg/gram/actuation (2 %) topical soln metered-dose pump Previous Rx's Medication Instructions Recorded pyridoxine (vitamin B6) 100 mg 100 mg PO DAILY 90 days #90 tabs 01/10/22 tablet omeprazole 20 mg capsule,delayed 20 mg PO DAILY #90 caps 04/18/22 release hydroxychloroquine 200 mg tablet 300 mg PO DAILY #45 tabs 09/11/22 etanercept 50 mg/mL (1 mL) 50 mg subcut QWEEK #4 mL 12/01/22 subcutaneous pen injector (Enbrel SureClick) cefuroxime axetil 250 mg tablet 250 mg PO BID 7 days #14 tabs 01/28/23 dicyclomine 20 mg tablet 20 mg PO QID PRN abdominal pain 01/28/23 #20 tabs prochlorperazine maleate 10 mg 10 mg PO BID PRN nausea and 01/31/23 tablet (Compazine) vomiting #30 tabs <RHONDA Smart - Last Filed: 02/01/23 11:45> Allergies/Adverse Reactions: Allergies Allergy/AdvReac Type Severity Reaction Status Date / Time No Known Allergies Allergy Verified 02/01/23 11:37 [No Known Allergies*] <RHONDA Smart - Last Filed: 02/01/23 11:45> Review of Systems Review of Systems Constitutional : No Weight loss, No Fever, No Chills, No Night Sweats, No Fatigue, No Malaise ENT/Mouth : No Hearing loss, No Ear Pain, No Nasal Congestion, No Sinus Pain, No Hoarseness, No sore throat, No Rhinorrhea, No Swallowing Difficulty Eyes: No Eye Pain, No Swelling, No Redness, No Foreign Body, No Discharge, No Vision Changes Cardiovascular : No Chest Pain, No SOB, No Dyspnea on Exertion, No Orthopnea, No Edema, No Palpitations Respiratory : No Cough, No Sputum, No Wheezing, No Smoke Exposure, No Dyspnea Gastrointestinal : No Nausea, No Vomiting, No Diarrhea, No Constipation, complaining of worsening abdominal pain diffusely, no hematochezia or melena Genitourinary : no irregular bleeding, No Dysuria, No Urinary Frequency, No Hematuria, No Urinary Incontinence, No Urgency, No Flank Pain, No Urinary Flow Changes, No Hesitancy Musculoskeletal : No joint pain, No Myalgias, No Joint Swelling Skin : No Skin Lesions, No rash Neuro : No Weakness, No Numbness, No Paresthesias, No Loss of Consciousness, No Dizziness, No Headache Psych : No Anxiety/Panic, No Depression, No SI/HI/AH/VH, No Social Issues, Heme/Lymph: No Bruising, No Bleeding,No Lymphadenopathy Endocrine : No Polyuria, No Polydipsia, No Temperature Intolerance <Rosi Bower MD - Last Filed: 02/01/23 23:26> [facility] Past Medical History Medical History: Medical History Autoimmune urticaria Cervical spondylosis without myelopathy Fibromyalgia Gastroesophageal reflux disease Hiatal hernia Hx: UTI (urinary tract infection) Impaired fasting glucose Insomnia Kidney stone on left side Loose right total knee arthroplasty Low back pain at multiple sites Lumbago with sciatica, left side Lumbago with sciatica, right side Morbid obesity due to excess calories Nephrolithiasis Osteoarthritis Recurrent kidney stones Renal calculi Seronegative rheumatoid arthritis Shoulder pain, right Sleep apnea Splenic artery aneurysm Tailor's bunion of left foot Trigeminal neuralgia of right side of face Varices of other sites <RHONDA Smart - Last Filed: 02/01/23 11:45> Surgical History: Surgical History History of arthroscopy of right shoulder History of bunionectomy of left great toe History of colonoscopy History of cranioplasty History of esophagogastroduodenoscopy (EGD) History of laparoscopic cholecystectomy History of shoulder surgery Status post laser lithotripsy of ureteral calculus Status post right knee replacement <RHONDA Smart - Last Filed: 02/01/23 11:45> Family History Family History: Family History Father No problems noted. Mother Hypertension Maternal Grandmother No problems noted. Maternal Grandfather No problems noted. Paternal Grandmother No problems noted. Paternal Grandfather No problems noted. Maternal Aunt Diabetes Sister No problems noted. Son No problems noted. Daughter No problems noted. <RHONDA Smart - Last Filed: 02/01/23 11:45> Social History Social History: Social History Household Members: Spouse and Other Household Members Other:: mother,daughter Housing: House Are you a primary career technical counselor to a significant other at home: No Do you presently have visiting nurse or other home services: Yes ([employer]) Alcohol intake: never Patient Tobacco Use Status: Never used Tobacco Smoked in Last 30 Days: No e-Cigarette/Vaping Use: Never Used Use of substances other than those prescribed or required for medical reasons: No Advance Directives: No Advance Directives Information Provided: No service: No Current occupational status: unemployed Current occupation: rt handed Cognitive needs: No Hearing needs: No Vision needs: No <RHONDA Smart - Last Filed: 02/01/23 11:45> Physical Exam ED Vital Signs: Vital Signs - 24 hr 02/01/23 11:37 02/01/23 18:00 02/01/23 22:47 Temperature 98 F 98.6 F 98.0 F Pulse Rate 99 104 H 69 Respiratory Rate 19 16 16 Blood Pressure 127/72 120/69 122/79 Pulse Oximetry 99 97 96 Oxygen Delivery Method Room Air Room Air BMI result Body Mass Index 30.6 <RHONDA Smart - Last Filed: 02/01/23 11:45> Vital Signs - 24 hr 02/01/23 11:37 02/01/23 18:00 02/01/23 22:47 Temperature 98 F 98.6 F 98.0 F Pulse Rate 99 104 H 69 Respiratory Rate 19 16 16 Blood Pressure 127/72 120/69 122/79 Pulse Oximetry 99 97 96 Oxygen Delivery Method Room Air Room Air BMI result Body Mass Index 30.6 <Rosi Bower MD - Last Filed: 02/01/23 23:26> Const Other: Appearance: Alert. Oriented X3. No acute distress. Eyes: Pupils equal, round and reactive to light. ENT: Pharynx normal. Neck: Normal inspection. Neck supple. No lymph nodes noted. No crepitus CVS: Normal heart rate and rhythm. Pulses normal. Normal S1 and S2 Respiratory: No respiratory distress. Breath sounds normal. No Wheezing. No rales Abdomen: Soft tenderness to palpation in all quadrants but most noticeably in the periumbilical area. Skin: Skin warm and dry. Normal skin color. Normal skin turgor. Extremities: No lower extremity edema. No Lacerations. No Rash Neuro: Oriented X 3. No motor deficit. No sensory deficit. Moving all extremities. No slurred speech. CN 2 through 12 grossly intact Psych: calm, cooperative, normal affect <Rosi Bower MD - Last Filed: 02/01/23 23:26> Course Course Course Narrative: 1144 67-year-old female presents with epigastric pain that radiates to the left side of her upper abdomen, she reports she was seen here on Sunday diagnosed with UTI taking antibiotics for UTI however symptoms not improving. On exam tenderness to epigastric/left upper region. Normoactive bowel sounds. Patient well appearing and vital signs stable Plan labs, urine. To note will not do imaging patient had a CT scan done on 01/28/2023, showed dilated loops of small bowel in the left upper quadrant containing air-fluid levels and debris/food of uncertain significance or etiology. <RHONDA Smart - Last Filed: 02/01/23 11:45> Medical Decision Making Medical Decision Making [facility] Narrative: -my interpretation of CT scan of the abdomen: Occasional air-fluid levels. I discussed with the patient that she may have ileus versus an early small-bowel obstruction. -I discussed the CT scan with Dr. Burnett, patient being admitted. <Rosi Bower MD - Last Filed: 02/01/23 23:26> Differential Diagnosis Differential Diagnoses: The differential diagnosis associated with the presentation includes (Ileus, gastroenteritis, small-bowel obstruction) <Rosi Bower MD - Last Filed: 02/01/23 23:26> Admission/Observation Consideration of admission/observation: Escalation of care including admission/observation considered <Rosi Bower MD - Last Filed: 02/01/23 23:26> Consult Healthcare Provider Management of the patient was discussed with: Hospitalist <Rosi Bower MD - Last Filed: 02/01/23 23:26> Lab Data [facility] Lab Attestation statement: I reviewed the patient's lab results. <Rosi Bower MD - Last Filed: 02/01/23 23:26> Result Diagrams: 02/01/23 11:56 02/01/23 11:56 <RHONDA Smart - Last Filed: 02/01/23 11:45> Labs: Lab Results 02/01/23 02/01/23 02/01/23 Range/Units 11:56 11:56 20:47 WBC 9.5 (4.8-10.8) X10*3/uL RBC 4.76 (4.20-5.50) X10*6/uL Hgb 14.9 (12.0-16.0) g/dl Hct 43.7 (37.0-47.0) % MCV 91.8 (80.0-98.0) fL MCH 31.3 (27.0-33.0) pg MCHC 34.1 (31.0-35.0) g/dl RDW 12.6 (11.0-16.0) % Plt Count 203 (160-400) X10*3/uL MPV 10.3 (9.4-12.3) fL Immature Gran % (Auto) 0.3 (0.0-0.4) % Neut % (Auto) 67.5 (45-73) % Lymph % (Auto) 20.3 (20-40) % [place] % (Auto) 10.5 (2-11) % Eos % (Auto) 0.8 (0-4) % Baso % (Auto) 0.6 (0-2) % Lymph # (Auto) 1.9 (1.2-4.9) X10*3/uL [place] # (Auto) 1.0 (0.1-1.2) X10*3/uL Eos # (Auto) 0.1 (0.0-0.4) X10*3/uL Baso # (Auto) 0.1 (0.0-0.2) X10*3/uL Abs Immat Gran (auto) 0.03 (0.00-0.03) X10*3/uL Absolute Neuts (auto) 6.4 (2.0-8.3) x10*3/uL Absolute Nucleated RBC 0.000 (0.0-0.012) X10*3/uL Nucleated RBC % (auto) 0.0 (0.0-0.2) /100WBC Sodium 138 (135-145) mmol/L Potassium 4.1 (3.3-5.1) mmol/L Chloride 101 (96-108) mmol/L Carbon Dioxide 27 (22-29) mmol/L Anion Gap 14 (12-20) BUN 19 H (9-16) mg/dL Creatinine 1.41 H (0.5-1.4) mg/dL Estim Creat Clear Calc 36.5 Estimated GFR 37 Random Glucose 111 (60-115) mg/dL Calcium 9.0 (8.4-10.2) mg/dL Magnesium 1.9 (1.6-2.6) mg/dL Total Bilirubin 0.5 (0.0-1.0) mg/dL AST 22 (5-31) U/L ALT 23 (0-31) U/L Alkaline Phosphatase 76 (39-117) U/L Total Protein 7.4 (6.5-8.0) g/dL Albumin 4.0 (3.5-5.0) g/dL Lipase 76 (8-78) U/L Urine Color Yellow Urine Appearance Clear Urine pH 5.5 (5.0-9.0) Ur Specific Wil[place] 1.015 (1.005-1.025) Urine Protein 30 (1+) H (Neg-Trace) mg/dL Urine Glucose (UA) Negative (Negative) mg/dL Urine Ketones 15 (Negative) mg/dL Urine Blood Negative (Negative) Urine Nitrite Negative (Negative) Ur Leukocyte Esterase Trace H (Negative) Urine RBC 0-2 (0-2) /HPF Urine WBC 0-5 (0-5) /HPF Ur Squamous Epith Cells 6-10 (0-2) /HPF Urine Bacteria None Seen (None Seen) Hyaline Casts 3-5 (0-2) /LPF <RHONDA Smart - Last Filed: 02/01/23 11:45> Lab Results 02/01/23 02/01/23 02/01/23 Range/Units 11:56 11:56 20:47 WBC 9.5 (4.8-10.8) X10*3/uL RBC 4.76 (4.20-5.50) X10*6/uL Hgb 14.9 (12.0-16.0) g/dl Hct 43.7 (37.0-47.0) % MCV 91.8 (80.0-98.0) fL MCH 31.3 (27.0-33.0) pg MCHC 34.1 (31.0-35.0) g/dl RDW 12.6 (11.0-16.0) % Plt Count 203 (160-400) X10*3/uL MPV 10.3 (9.4-12.3) fL Immature Gran % (Auto) 0.3 (0.0-0.4) % Neut % (Auto) 67.5 (45-73) % Lymph % (Auto) 20.3 (20-40) % Stonewall % (Auto) 10.5 (2-11) % Eos % (Auto) 0.8 (0-4) % Baso % (Auto) 0.6 (0-2) % Lymph # (Auto) 1.9 (1.2-4.9) X10*3/uL [place] # (Auto) 1.0 (0.1-1.2) X10*3/uL Eos # (Auto) 0.1 (0.0-0.4) X10*3/uL Baso # (Auto) 0.1 (0.0-0.2) X10*3/uL Abs Immat Gran (auto) 0.03 (0.00-0.03) X10*3/uL Absolute Neuts (auto) 6.4 (2.0-8.3) x10*3/uL Absolute Nucleated RBC 0.000 (0.0-0.012) X10*3/uL Nucleated RBC % (auto) 0.0 (0.0-0.2) /100WBC Sodium 138 (135-145) mmol/L Potassium 4.1 (3.3-5.1) mmol/L Chloride 101 (96-108) mmol/L Carbon Dioxide 27 (22-29) mmol/L Anion Gap 14 (12-20) BUN 19 H (9-16) mg/dL Creatinine 1.41 H (0.5-1.4) mg/dL Estim Creat Clear Calc 36.5 Estimated GFR 37 Random Glucose 111 (60-115) mg/dL Calcium 9.0 (8.4-10.2) mg/dL Magnesium 1.9 (1.6-2.6) mg/dL Total Bilirubin 0.5 (0.0-1.0) mg/dL AST 22 (5-31) U/L ALT 23 (0-31) U/L Alkaline Phosphatase 76 (39-117) U/L Total Protein 7.4 (6.5-8.0) g/dL Albumin 4.0 (3.5-5.0) g/dL Lipase 76 (8-78) U/L Urine Color Yellow Urine Appearance Clear Urine pH 5.5 (5.0-9.0) Ur Specific [place] 1.015 (1.005-1.025) Urine Protein 30 (1+) H (Neg-Trace) mg/dL Urine Glucose (UA) Negative (Negative) mg/dL Urine Ketones 15 (Negative) mg/dL Urine Blood Negative (Negative) Urine Nitrite Negative (Negative) Ur Leukocyte Esterase Trace H (Negative) Urine RBC 0-2 (0-2) /HPF Urine WBC 0-5 (0-5) /HPF Ur Squamous Epith Cells 6-10 (0-2) /HPF Urine Bacteria None Seen (None Seen) Hyaline Casts 3-5 (0-2) /LPF <Rosi Bower MD - Last Filed: 02/01/23 23:26> Radiology Impression Discussion of test interpretation with radiology: I have reviewed the radiologist's reading. <Rosi Bower MD - Last Filed: 02/01/23 23:26> Radiologist Impression: FINDINGS: LUNG BASES: Bibasilar atelectasis. Normal heart size. LIVER, GALLBLADDER, AND BILIARY TREE: The liver is normal in size, shape, and attenuation. No focal hepatic lesion or biliary ductal dilatation is present. Cholecystectomy. PANCREAS: Unremarkable. SPLEEN: Unremarkable. ADRENAL GLANDS: Unremarkable. KIDNEYS AND URETERS: The kidneys are normal in size, shape, and attenuation. No hydronephrosis, hydroureter, or calculi seen. No perinephric stranding. BLADDER: Unremarkable. GASTROINTESTINAL TRACT: Normal appearance of the stomach. Fluid-filled prominence of the small bowel proximally. There is gradual transition to decompressed small bowel with no focal abrupt transition point. Normal appendix. Gas and stool in the colon. Normal caliber of the colon. Mild diverticulosis without diverticulitis. ABDOMINAL WALL: No significant hernia is appreciated. LYMPH NODES: Normal. VASCULAR: Normal caliber aorta with mild atherosclerotic calcification. PELVIC VISCERA: The uterus and adnexa are unremarkable. OSSEOUS STRUCTURES: No acute or suspicious osseous abnormality. Mild degenerative changes throughout the spine. Moderate degenerative change of both hips. CT/CT abdomen pelvis wo IV con IMPRESSION: Fluid-filled prominence of the proximal small bowel with gradual transition to decompressed small bowel. No abrupt transition point. This could represent ileus or enteritis. Partially obstructive process possible. Overall this is similar to prior. Fleischner guidelines were followed. <Rosi Bower MD - Last Filed: 02/01/23 23:26> Medications Administered Discontinued Medications Generic Name Dose Route Start Last Admin Trade Name Freq PRN Reason Stop Dose Admin Al Hydroxide/Mg Hydroxide 30 ml 02/01/23 18:34 02/01/23 18:50 Magnesium Hydrox/Alum Hydrox 30 Ml Oral.Susp PO 02/01/23 18:35 30 ml ONCE ONE Administration Sodium Chloride 1,000 mls @ 999 mls/hr 02/01/23 18:31 02/01/23 20:08 Ns IVCONT 02/01/23 19:31 Infused .Q1H1M ONE Infusion Lidocaine HCl 15 ml 02/01/23 18:34 02/01/23 18:50 Lidocaine Hcl Viscous 2 % 15 Ml Solution MUCOUS MEM 02/01/23 18:35 15 ml ONCE ONE Administration <RHONDA Smart - Last Filed: 02/01/23 11:45> Medications Administered Discontinued Medications Generic Name Dose Route Start Last Admin Trade Name Nuris PRN Reason Stop Dose Admin Al Hydroxide/Mg Hydroxide 30 ml 02/01/23 18:34 02/01/23 18:50 Magnesium Hydrox/Alum Hydrox 30 Ml Oral.Susp PO 02/01/23 18:35 30 ml ONCE ONE Administration Sodium Chloride 1,000 mls @ 999 mls/hr 02/01/23 18:31 02/01/23 20:08 Ns IVCONT 02/01/23 19:31 Infused .Q1H1M ONE Infusion Lidocaine HCl 15 ml 02/01/23 18:34 02/01/23 18:50 Lidocaine Hcl Viscous 2 % 15 Ml Solution [place]UCOUS [facility] [place] 02/01/23 18:35 15 ml ONCE ONE Administration <Rosi Bower MD - Last Filed: 02/01/23 23:26> Critical Care Time Critical Care Time Critical Care Time: Yes <Rosi Bower MD - Last Filed: 02/01/23 23:26> Total Critical Care Time: 45 <Rosi Bower MD - Last Filed: 02/01/23 23:26> Attestation: I have personally provided critical care time. Time includes review of lab data, radiology results, discussion with consultants, and monitoring for potential decompensation. Intervention performed as documented. <Rosi Bower MD - Last Filed: 02/01/23 23:26> Discharge Plan Discharge Clinical Impression: Abdominal pain <RHONDA Smart - Last Filed: 02/01/23 11:45> Patient Disposition: Admitted As Inpatient <RHONDA Smart - Last Filed: 02/01/23 11:45> Prescriptions: No Action omeprazole 20 mg capsule,delayed release(DR/EC) 20 mg PO DAILY Qty: 90 0RF Enbrel SureClick 50 mg/mL (1 mL) pen injector 50 mg subcut QWEEK Qty: 4 2RF pregabalin 150 mg capsule 1 cap PO BID cefuroxime axetil 250 mg tablet 250 mg PO BID 7 Days Qty: 14 0RF dicyclomine 20 mg tablet 20 mg PO QID PRN (Reason: abdominal pain) Qty: 20 0RF cholecalciferol (vitamin D3) 50 mcg (2,000 unit) capsule 5,000 unit PO DAILY diclofenac sodium 20 mg/gram /actuation(2 %) solution in metered pump w/vishnu 2 pump topical BID Rx Instructions: apply to single affected knee prochlorperazine maleate [Compazine] 10 mg tablet 10 mg PO BID PRN (Reason: nausea and vomiting) Qty: 30 0RF pyridoxine (vitamin B6) 100 mg tablet 100 mg PO DAILY 90 Days Qty: 90 1RF pregabalin 25 mg capsule 25 mg PO BID carbamazepine 200 mg tablet 400 mg PO BID hydroxychloroquine 200 mg tablet 300 mg PO DAILY Qty: 45 3RF <RHONDA Smart - Last Filed: 02/01/23 11:45>
[2023-02-01 12:02] LABS: MANUAL DIFF FLAG NO
[2023-02-01 12:10] LABS: Basophils Absolute Auto 0.1 X10*3/uL (0.0-0.2); Basophils Percent Auto 0.6 % (0-2); Eosinophils Absolute Auto 0.1 X10*3/uL (0.0-0.4); Eosinophils Percent Auto 0.8 % (0-4); Hematocrit 43.7 % (37.0-47.0); Hemoglobin 14.9 g/dl (12.0-16.0); Imm Gran Abs Auto 0.03 X10*3/uL (0.00-0.03); Imm Gran Pct Auto 0.3 % (0.0-0.4); Lymphocytes Absolute Auto 1.9 X10*3/uL (1.2-4.9); Lymphocytes Percent Auto 20.3 % (20-40); Mean Corpuscular HGB Conc 34.1 g/dl (31.0-35.0); Mean Corpuscular Hemoglobin 31.3 pg (27.0-33.0); Mean Corpuscular Volume 91.8 fL (80.0-98.0); Mean Platelet Volume 10.3 fL (9.4-12.3); Monocytes Percent Auto 10.5 % (2-11); Neutrophils Absolute Auto 6.4 x10*3/uL (2.0-8.3); Neutrophils Percent Auto 67.5 % (45-73); Platelet Count 203 X10*3/uL (160-400); Red Blood Count 4.76 X10*6/uL (4.20-5.50); Red Cell Distribution Width 12.6 % (11.0-16.0); White Blood Count 9.5 X10*3/uL (4.8-10.8)
[2023-02-01 12:24] LABS: Alanine Aminotransferase 23 U/L (0-31); Alkaline Phosphatase 76 U/L (39-117); Aspartate Amino Transferase 22 U/L (5-31); Bilirubin Total 0.5 mg/dL (0.0-1.0); Blood Urea Nitrogen 19 mg/dL (9-16); Carbon Dioxide 27 mmol/L (22-29); Chloride 101 mmol/L (96-108); Creatinine Clr Calc Pharmacy 36.5; Estimated Glomerular Filt Rate 37; Glucose Random 111 mg/dL (60-115); Lipase 76 U/L (8-78); Magnesium 1.9 mg/dL (1.6-2.6); Potassium 4.1 mmol/L (3.3-5.1); Sodium 138 mmol/L (135-145); Total Protein 7.4 g/dL (6.5-8.0)
[2023-02-01 12:26] LABS: Anion Gap 14 (12-20)
[2023-02-01 18:00] VITALS: BP 120/69; PULSE 104; RESP 16; TEMP 37; O2SAT 97
[2023-02-01] MEDS: Magnesium Hydrox/Alum Hydrox 30 ML ORAL.SUSP PO (18:50)
[2023-02-01] MEDS: Lidocaine HCl Viscous 2 % 15 ML SOLUTION MUCOUS MEM (18:50)
[2023-02-01] MEDS: 0.9 % Sodium Chloride 1,000 ML 999 ML IVCONT (19:06)
[2023-02-01 20:55] LABS: Appearance Urine Clear; Color Urine Yellow; Glucose Urine UA Negative (Negative); Leukocyte Esterase Urine Trace (Negative); Nitrite Urine Negative (Negative); PH 5.5 (5.0-9.0); Specific Gravity - Urine 1.015 (1.005-1.025); UMIC TRIGGER UACC YES; Urine Blood Negative (Negative); Urine Ketones 15 mg/dL (Negative); Urine Protein 30 (1+) mg/dL (Neg-Trace)
[2023-02-01 20:58] LABS: Bacteria Urine None Seen (None Seen); RBC Urine 0-2 /HPF (0-2); WBC Urine 0-5 /HPF (0-5)
--- NOTE | 2023-02-01 21:14 | PC.NURSE ---
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 [phone]
[2023-02-01 22:47] VITALS: BP 122/79; PULSE 69; RESP 16; TEMP 36.7; O2SAT 96
[2023-02-02] VITALS (9 sets, daily range): BP systolic 98–131; BP diastolic 50–65; PULSE 77–97; RESP 16–18; TEMP 36.4–37.2; O2SAT 90–98; BMI 31.2
--- NOTE | 2023-02-02 00:13 | P.HPHOSP_ITS ---
History of Present Illness Date of Service: 02/02/23 Chief Complaint: Abdominal Pain This is a 67-year-old female with pertinent history of trigeminal neuralgia, rheumatoid arthritis, gastroesophageal reflux disease, fibromyalgia who presents to the emergency department for evaluation of abdominal discomfort. Patient states she has been having generalized abdominal discomfort that started 4 days prior to presentation, it has been constant, nonradiating and without any relieving factors. Patient was seen in the ER on 01/28 and discharged with a diagnosis of UTI and gastroenteritis. Patient states she took her medicines for UTI and a UTI symptoms have improved. Does report decreased appetite due to abdominal discomfort. She denies fever, chills, chest discomfort, palpitations, shortness of breath, changes in urinary or bowel habits In the emergency department, it imaging concerning for ileus or small-bowel obstruction. Creatinine was found to be elevated Review of Systems Constitutional: Constitutional: Reports lethargy and Reports malaise Cardiovascular: Cardiovascular: Reports no additional cardiovascular complaints Respiratory: Respiratory: Reports no additional respiratory complaints Gastrointestinal: Gastrointestinal: Reports abdominal pain Genitourinary: Genitourinary: Reports no additional female genitourinary complaints [facility] Medical History Autoimmune urticaria Cervical spondylosis without myelopathy Fibromyalgia Gastroesophageal reflux disease Hiatal hernia Hx: UTI (urinary tract infection) Impaired fasting glucose Insomnia Kidney stone on left side Loose right total knee arthroplasty Low back pain at multiple sites Lumbago with sciatica, left side Lumbago with sciatica, right side Morbid obesity due to excess calories Nephrolithiasis Osteoarthritis Recurrent kidney stones Renal calculi Seronegative rheumatoid arthritis Shoulder pain, right Sleep apnea Splenic artery aneurysm Tailor's bunion of left foot Trigeminal neuralgia of right side of face Varices of other sites Family History Father No problems noted. Mother Hypertension Maternal Grandmother No problems noted. Maternal Grandfather No problems noted. Paternal Grandmother No problems noted. Paternal Grandfather No problems noted. Maternal Aunt Diabetes Sister No problems noted. Son No problems noted. Daughter No problems noted. Surgical History History of arthroscopy of right shoulder History of bunionectomy of left great toe History of colonoscopy History of cranioplasty History of esophagogastroduodenoscopy (EGD) History of laparoscopic cholecystectomy History of shoulder surgery Status post laser lithotripsy of ureteral calculus Status post right knee replacement Social History Household Members: Spouse and Other Household Members Other:: mother,daughter Housing: House Are you a primary health care aide to a significant other at home: No Do you presently have visiting nurse or other home services: Yes (OUTREACH ANALYST) Alcohol intake: never Patient Tobacco Use Status: Never used Tobacco Smoked in Last 30 Days: No e-Cigarette/Vaping Use: Never Used Use of substances other than those prescribed or required for medical reasons: No Advance Directives: No Advance Directives Information Provided: No service: No Current occupational status: unemployed Current occupation: rt handed Cognitive needs: No Hearing needs: No Vision needs: No Meds Allergies Allergy/AdvReac Type Severity Reaction Status Date / Time No Known Allergies Allergy Verified 02/01/23 11:37 [No Known Allergies*] Active Medications: Current Medications Pharmacy Consult (Consult Rx Perform Med Rec) 1 each MISCELLANE ONCE PRN PRN Reason: Consult order Home Medications Medication Instructions Recorded Confirmed Last Taken Type cholecalciferol (vitamin D3) 50 5,000 unit PO DAILY 06/29/22 11/17/22 07/10/22 History mcg (2,000 unit) capsule pregabalin 150 mg capsule 1 cap PO BID 07/04/22 02/01/23 07/10/22 History carbamazepine 200 mg tablet 400 mg PO BID 07/10/22 02/01/23 07/10/22 History pregabalin 25 mg capsule 25 mg PO BID 10/05/22 02/01/23 Unknown History diclofenac sodium 20 2 pump topical BID 11/17/22 11/17/22 Unknown History mg/gram/actuation (2 %) topical soln metered-dose pump Physical Exam Vital Signs and Narrative: Vital Signs: Last Vital Signs Temp 98.0 F 02/01/23 22:47 Pulse 69 02/01/23 22:47 Resp 16 02/01/23 22:47 BP 122/79 02/01/23 22:47 Pulse Ox 96 02/01/23 22:47 O2 Del Method Room Air 02/01/23 18:00 BMI result Body Mass Index 30.6 Middle-aged female lying in bed in mild distress Neck supple, no JVD Regular rate and rhythm, S1-S2 heard Regular breath sounds bilaterally, no wheezing or crackles appreciated Abdomen with generalized tenderness, no guarding, no rigidity, no rebound tenderness Patient is awake, alert and oriented to self, place, time and person ; no focal motor deficit Psych: Normal mood No pedal edema Results Labs 02/01/23 11:56 02/01/23 11:56 Labs: Laboratory Results - last 24 hr 02/01/23 02/01/23 02/01/23 11:56 11:56 20:47 MCV 91.8 MCH 31.3 MCHC 34.1 RDW 12.6 Plt Count 203 MPV 10.3 Immature Gran % (Auto) 0.3 Neut % (Auto) 67.5 Lymph % (Auto) 20.3 [place] % (Auto) 10.5 Eos % (Auto) 0.8 Baso % (Auto) 0.6 Lymph # (Auto) 1.9 [place] # (Auto) 1.0 Eos # (Auto) 0.1 Baso # (Auto) 0.1 Abs Immat Gran (auto) 0.03 Absolute Neuts (auto) 6.4 Absolute Nucleated RBC 0.000 Nucleated RBC % (auto) 0.0 Anion Gap 14 Estim Creat Clear Calc 36.5 Estimated GFR 37 Random Glucose 111 Calcium 9.0 Magnesium 1.9 Total Bilirubin 0.5 AST 22 ALT 23 Alkaline Phosphatase 76 Total Protein 7.4 Albumin 4.0 Lipase 76 Urine Color Yellow Urine Appearance Clear Urine pH 5.5 Ur Specific [place] 1.015 Urine Protein 30 (1+) H Urine Glucose (UA) Negative Urine Ketones 15 Urine Blood Negative Urine Nitrite Negative Ur Leukocyte Esterase Trace H Urine RBC 0-2 Urine WBC 0-5 Ur Squamous Epith Cells 6-10 Urine Bacteria None Seen Hyaline Casts 3-5 Imaging Radiologist's Impressions: Impressions KUB X-Ray 02/01/23 20:10 IMPRESSION: Mildly dilated central small bowel loops, similar when compared to the prior examination. Air and stool are seen within the colon. Findings could represent ileus versus a partial small bowel obstruction. Abdomen/Pelvis CT 02/01/23 22:25 IMPRESSION: Fluid-filled prominence of the proximal small bowel with gradual transition to decompressed small bowel. No abrupt transition point. This could represent ileus or enteritis. Partially obstructive process possible. Overall this is similar to prior. Fleischner guidelines were followed. Assessment and Plan (1) Abdominal pain: Status: Acute Plan This is a 67-year-old female with pertinent history of trigeminal neuralgia, rheumatoid arthritis, gastroesophageal reflux disease, fibromyalgia who presents to the emergency department for evaluation of abdominal discomfort. #. Acute kidney injury stage I, nonoliguric: Likely prerenal in the setting of intravascular volume depletion. Resuscitated with IV crystalloids in the ER. Monitor urine output and creatinine with fluid resuscitation. Avoid nephrotoxins #. Abdominal pain, likely ileus versus partial SBO: Patient without nausea or vomiting, defer NG tube. Clear liquid diet and advance as tolerated. Consulting general surgery, appreciate assistance. Defer antibiotics as patient without fever and white count #. Trigeminal neuralgia/rheumatoid arthritis: Continue home p.o. medications #. Gastroesophageal reflux disease: On PPI Med rec pending DVT prophylaxis: Lovenox 40 mg daily Full code Clear liquid diet. Advance as tolerated Time Spent With Patient Time: Total time managing care of this patient today ____ minutes. Quality Stroke Does the patient have a stroke diagnosis?: No VTE Prior VTE?: No VTE Risk Level:: Medical - moderate - high VTE Device Contraindication: Treatment Not Indicated VTE Drug Contraindication: N/A - Med Ordered
[2023-02-02] MEDS: Enoxaparin Sodium 40 MG/0.4 ML SYRINGE SUBCUT ×2 (00:37→20:22)
--- NOTE | 2023-02-02 00:39 | MHC.EDTECH ---
pt ambulated to restroom without any issues
[2023-02-02 05:23] LABS: MANUAL DIFF FLAG NO
[2023-02-02 05:26] LABS: Basophils Absolute Auto 0.1 X10*3/uL (0.0-0.2); Basophils Percent Auto 0.9 % (0-2); Eosinophils Absolute Auto 0.1 X10*3/uL (0.0-0.4); Eosinophils Percent Auto 1.2 % (0-4); Hematocrit 37.7 % (37.0-47.0); Hemoglobin 13.1 g/dl (12.0-16.0); Imm Gran Abs Auto 0.03 X10*3/uL (0.00-0.03); Imm Gran Pct Auto 0.4 % (0.0-0.4); Lymphocytes Absolute Auto 2.1 X10*3/uL (1.2-4.9); Lymphocytes Percent Auto 27.9 % (20-40); Mean Corpuscular HGB Conc 34.7 g/dl (31.0-35.0); Mean Corpuscular Hemoglobin 32.1 pg (27.0-33.0); Mean Corpuscular Volume 92.4 fL (80.0-98.0); Mean Platelet Volume 10.7 fL (9.4-12.3); Monocytes Absolute Auto 0.8 X10*3/uL (0.1-1.2); Monocytes Percent Auto 10.8 % (2-11); Neutrophils Absolute Auto 4.4 x10*3/uL (2.0-8.3); Neutrophils Percent Auto 58.8 % (45-73); Platelet Count 176 X10*3/uL (160-400); Red Blood Count 4.08 X10*6/uL (4.20-5.50); Red Cell Distribution Width 12.7 % (11.0-16.0); White Blood Count 7.5 X10*3/uL (4.8-10.8)
[2023-02-02 05:41] LABS: Anion Gap 10 (12-20); Blood Urea Nitrogen 20 mg/dL (9-16); Calcium 8.2 mg/dL (8.4-10.2); Carbon Dioxide 25 mmol/L (22-29); Chloride 108 mmol/L (96-108); Creatinine Clr Calc Pharmacy 43.5; Estimated Glomerular Filt Rate 46; Glucose Random 91 mg/dL (60-115); Potassium 4.1 mmol/L (3.3-5.1); Sodium 139 mmol/L (135-145)
--- NOTE | 2023-02-02 05:59 | PC.NURSE ---
Pt. c/o diarrhea. Provider MD Lex notified. Awaiting response at this time.
--- NOTE | 2023-02-02 07:20 | PC.NURSE ---
pt alert and oriented, skin appropriate for ethnicity, respirations even and unlabored, ls clear, abd soft and tender especial on the left side- pt also reports pain at 6/10 but denies nausea, positive bowel sounds in all 4 quadrants, pt also reports having 5 watery diarrhea, this rn explained to the pt that we need a stool sample next time she is able to use the bathroom. vs stable
[2023-02-02] MEDS: 0.9 % Sodium Chloride Flush 3 ML SYRINGE IVFLUSH (07:33)
--- NOTE | 2023-02-02 07:58 | HO.PM.IMPN ---
Subjective Subjective Date of Service: 02/02/23 Interval History: diarrhea now, LLQ pain Physical Exam Vital Signs: Vital Signs: Last Vital Signs Temp 98.7 F 02/02/23 07:29 Pulse 96 02/02/23 07:29 Resp 18 02/02/23 07:29 BP 131/65 02/02/23 07:29 Pulse Ox 94 02/02/23 07:29 O2 Del Method Room Air 02/02/23 07:29 BMI result Body Mass Index 30.6 General: AO X 3, no acute distress Resp: CTA bilateral, no accessory muscles used CVS: S1,S2,RRR GI: soft, LLQ tender, non distended Neuro: motor grossly intact, alert Psych: appropriate affect, appropriate insight Objective Data Active Medications Acetaminophen (Acetaminophen 325 Mg Tablet) 650 mg PO Q6H PRN PRN Reason: Pain, Mild (Pain Scale 1-3) Acetaminophen (Acetaminophen Supp 650 Mg Supp.Rect) 650 mg NM Q6H PRN PRN Reason: Pain, Mild (Pain Scale 1-3) Enoxaparin Sodium (Enoxaparin Sodium 40 Mg/0.4 Ml Syringe) 40 mg SUBCUT 2100 [facility] Last Admin: 02/02/23 00:37 Dose: 40 mg Documented By: DENISSE Dextrose/Sodium Chloride (D51/2ns) 1,000 mls @ 80 mls/hr IVCONT .[id number] [facility] Melatonin (Melatonin 3 Mg Tablet) 6 mg PO BEDTIME PRN PRN Reason: Insomnia Morphine Sulfate (Morphine Sulfate 2 Mg/Ml Cartridge) 2 mg IVPUSH Q3H PRN; Protocol PRN Reason: moderate pain Ondansetron HCl (Ondansetron Hcl 4 Mg/2 Ml Vial) 4 mg IVPUSH Q8H PRN PRN Reason: Nausea and Vomiting Pharmacy Consult (Consult Rx Perform Med Rec) 1 each MISCELLANE ONCE PRN PRN Reason: Consult order Sodium Chloride (0.9 % Sodium Chloride Flush 3 Ml Syringe) 3 ml IVFLUSH QSHIFT [facility] Last Admin: 02/02/23 07:33 Dose: 3 ml Documented By: BASILIO Labs 02/02/23 05:16 02/02/23 05:16 Labs: Laboratory Results - last 24 hr 02/01/23 02/01/23 02/01/23 11:56 11:56 20:47 MCV 91.8 MCH 31.3 MCHC 34.1 RDW 12.6 Plt Count 203 MPV 10.3 Immature Gran % (Auto) 0.3 Neut % (Auto) 67.5 Lymph % (Auto) 20.3 [place] % (Auto) 10.5 Eos % (Auto) 0.8 Baso % (Auto) 0.6 Lymph # (Auto) 1.9 [place] # (Auto) 1.0 Eos # (Auto) 0.1 Baso # (Auto) 0.1 Abs Immat Gran (auto) 0.03 Absolute Neuts (auto) 6.4 Absolute Nucleated RBC 0.000 Nucleated RBC % (auto) 0.0 Anion Gap 14 Estim Creat Clear Calc 36.5 Estimated GFR 37 Random Glucose 111 Calcium 9.0 Magnesium 1.9 Total Bilirubin 0.5 AST 22 ALT 23 Alkaline Phosphatase 76 Total Protein 7.4 Albumin 4.0 Lipase 76 Urine Color Yellow Urine Appearance Clear Urine pH 5.5 Ur Specific [place] 1.015 Urine Protein 30 (1+) H Urine Glucose (UA) Negative Urine Ketones 15 Urine Blood Negative Urine Nitrite Negative Ur Leukocyte Esterase Trace H Urine RBC 0-2 Urine WBC 0-5 Ur Squamous Epith Cells 6-10 Urine Bacteria None Seen Hyaline Casts 3-5 02/02/23 02/02/23 05:16 05:16 MCV 92.4 MCH 32.1 MCHC 34.7 RDW 12.7 Plt Count 176 MPV 10.7 Immature Gran % (Auto) 0.4 Neut % (Auto) 58.8 Lymph % (Auto) 27.9 [place] % (Auto) 10.8 Eos % (Auto) 1.2 Baso % (Auto) 0.9 Lymph # (Auto) 2.1 [place] # (Auto) 0.8 Eos # (Auto) 0.1 Baso # (Auto) 0.1 Abs Immat Gran (auto) 0.03 Absolute Neuts (auto) 4.4 Absolute Nucleated RBC 0.000 Nucleated RBC % (auto) 0.0 Anion Gap 10 L Estim Creat Clear Calc 43.5 Estimated GFR 46 Random Glucose 91 Calcium 8.2 L D Magnesium Total Bilirubin AST ALT Alkaline Phosphatase Total Protein Albumin Lipase Urine Color Urine Appearance Urine pH Ur Specific [place] Urine Protein Urine Glucose (UA) Urine Ketones Urine Blood Urine Nitrite Ur Leukocyte Esterase Urine RBC Urine WBC Ur Squamous Epith Cells Urine Bacteria Hyaline Casts Assessment and Plan (1) Abdominal pain: Status: Acute Plan 67F PMH trigeminal neuralgia, rheumatoid arthritis, gastroesophageal reflux disease, fibromyalgia who presented to the emergency department for evaluation of abdominal discomfort. ileus vs partial SBO complicated by VARSHA varsha improving now with diarrhea, but still poor appetite and abdominal pain ivf, pain control, surgery eval, monitor bmp Trigeminal neuralgia carbamazipine lyrica rheumatoid arthritis hold enteracept continue plaqueniil dvt prophylaxis - lovenox full code reason for continued hospitalization: awaiting po tolerance Time Spent With Patient Time: Total time managing care of this patient today ____ minutes. Quality Stroke Does the patient have a stroke diagnosis?: No VTE Prior VTE?: No VTE Risk Level:: Medical - moderate - high VTE Device Contraindication: Treatment Not Indicated VTE Drug Contraindication: N/A - Med Ordered
[2023-02-02] MEDS: Dextrose 5 % and 0.45 % NaCl 1,000 ML 80 ML IVCONT ×2 (08:11→23:30)
[2023-02-02] MEDS: Morphine Sulfate 2 MG/ML CARTRIDGE IVPUSH ×2 (08:11→18:30)
--- NOTE | 2023-02-02 08:54 | P.CONGS_ITS ---
History of Present Illness Consult details Consult date: 02/02/23 Narrative: 67-year-old female patient presenting with complaints of abdominal pain mainly in the left lower quadrant and right lower quadrant of several days duration. The pain was associated with nausea and vomiting and abdominal distension. She reports a prior history of similar discomfort, not to the same severity. Upon presentation her abdominal pain was 10/10 but currently is 8/10 after receiving pain medication. She reports several episodes of diarrhea over the past 24 hours. Her past history is significant for section x3. CT abdomen and pelvis revealed dilated loops of small bowel proximally with a gradual decompression distally. Findings were felt to be suggestive of either a partial small-bowel obstruction verses ileus. She is admitted to the hospitalist service for further management. Review of Systems Review of Systems: Yes all other systems are reviewed and are negative PMF Past Medical History Medical History (Reviewed 02/02/23 @ : by Anat Burnett MD) Autoimmune urticaria Cervical spondylosis without myelopathy Fibromyalgia Gastroesophageal reflux disease Hiatal hernia Hx: UTI (urinary tract infection) Impaired fasting glucose Insomnia Kidney stone on left side Loose right total knee arthroplasty Low back pain at multiple sites Lumbago with sciatica, left side Lumbago with sciatica, right side Morbid obesity due to excess calories Nephrolithiasis Osteoarthritis Recurrent kidney stones Renal calculi Seronegative rheumatoid arthritis Shoulder pain, right Sleep apnea Splenic artery aneurysm Tailor's bunion of left foot Trigeminal neuralgia of right side of face Varices of other sites Family History Family History (Reviewed 02/02/23 @ : by Anat Burnett MD) Father No problems noted. Mother Hypertension Maternal Grandmother No problems noted. Maternal Grandfather No problems noted. Paternal Grandmother No problems noted. Paternal Grandfather No problems noted. Maternal Aunt Diabetes Sister No problems noted. Son No problems noted. Daughter No problems noted. Surgical History Surgical History (Reviewed 02/02/23 @ : by Anat Burnett MD) History of arthroscopy of right shoulder History of bunionectomy of left great toe History of colonoscopy History of cranioplasty History of esophagogastroduodenoscopy (EGD) History of laparoscopic cholecystectomy History of shoulder surgery Status post laser lithotripsy of ureteral calculus Status post right knee replacement Social History Social History Household Members: Spouse and Other Household Members Other:: mother,daughter Housing: House Are you a primary med care manager to a significant other at home: No Do you presently have visiting nurse or other home services: Yes ([facility]) Alcohol intake: never Patient Tobacco Use Status: Never used Tobacco Smoked in Last 30 Days: No e-Cigarette/Vaping Use: Never Used Use of substances other than those prescribed or required for medical reasons: No Advance Directives: No Advance Directives Information Provided: No service: No Current occupational status: unemployed Current occupation: rt handed Cognitive needs: No Hearing needs: No Vision needs: No Meds Allergies Allergy/AdvReac Type Severity Reaction Status Date / Time No Known Allergies Allergy Verified 02/01/23 11:37 [No Known Allergies*] Active Medications: Current Medications Acetaminophen (Acetaminophen 325 Mg Tablet) 650 mg PO Q6H PRN PRN Reason: Pain, Mild (Pain Scale 1-3) Acetaminophen (Acetaminophen Supp 650 Mg Supp.Rect) 650 mg [place] Q6H PRN PRN Reason: Pain, Mild (Pain Scale 1-3) Enoxaparin Sodium (Enoxaparin Sodium 40 Mg/0.4 Ml Syringe) 40 mg SUBCUT 2100 [facility] Last Admin: 02/02/23 00:37 Dose: 40 mg Dextrose/Sodium Chloride (D51/2ns) 1,000 mls @ 80 mls/hr IVCONT .[id number] [facility] Last Admin: 02/02/23 08:11 Dose: 80 mls/hr Melatonin (Melatonin 3 Mg Tablet) 6 mg PO BEDTIME PRN PRN Reason: Insomnia Morphine Sulfate (Morphine Sulfate 2 Mg/Ml Cartridge) 2 mg IVPUSH Q3H PRN; Prot ocol PRN Reason: moderate pain Last Admin: 02/02/23 08:11 Dose: 2 mg Ondansetron HCl (Ondansetron Hcl 4 Mg/2 Ml Vial) 4 mg IVPUSH Q8H PRN PRN Reason: Nausea and Vomiting Pharmacy Consult (Consult Rx Perform Med Rec) 1 each MISCELLANE ONCE PRN PRN Reason: Consult order Sodium Chloride (0.9 % Sodium Chloride Flush 3 Ml Syringe) 3 ml IVFLUSH QSHIFT [facility] Last Admin: 02/02/23 07:33 Dose: 3 ml Home Medications Medication Instructions Recorded Confirmed Last Taken Type pregabalin 150 mg capsule 1 cap PO BID 07/04/22 11/17/22 07/10/22 History carbamazepine 200 mg tablet 400 mg PO BID 07/10/22 11/17/22 07/10/22 History pregabalin 25 mg capsule 25 mg PO BID 10/05/22 11/17/22 Unknown History Physical Exam Vital Signs: Vital Signs: Last Vital Signs Temp 98.7 F 02/02/23 07:29 Pulse 96 02/02/23 07:29 Resp 18 02/02/23 07:29 BP 131/65 02/02/23 07:29 Pulse Ox 94 02/02/23 07:29 O2 Del Method Room Air 02/02/23 07:29 BMI result Body Mass Index 30.6 Const: General: cooperative and no acute distress Nutritional Appearance: well nourished Orientation/consciousness: patient oriented x3 Limitations: no limitations HEENT: Head: Yes normocephalic and Yes atraumatic Ears: hearing grossly normal bilaterally Resp: Effort & Inspection: normal respiratory effort, no audible wheezes, no cough and no respiratory distress Cardio: Jugular venous distension: no JVD GI: Inspection: Yes normal to inspection Palpation (GI): Soft to palpation, Tenderness to palpation present (GI) in the LLQ and in the RLQ; with no rebound tenderness, no guarding and not rigid Percussion: Yes tympanic to percussion Auscultation: abnormal bowel sounds Rectal Exam - Female: deferred Skin: Other: Warm, dry, no rash Neuro: General: patient oriented x3 Extrem: General: Yes no clubbing, cyanosis or edema Results Labs 02/02/23 05:16 02/02/23 05:16 Labs: Abnormal lab results 02/01/23 02/01/23 02/02/23 Range/Units 11:56 20:47 05:16 RBC 4.08 L (4.20-5.50) X10*6/uL Anion Gap (12-20) BUN 19 H (9-16) mg/dL Creatinine 1.41 H (0.5-1.4) mg/dL Calcium (8.4-10.2) mg/dL Urine Protein 30 (1+) H (Neg-Trace) mg/dL Ur Leukocyte Esterase Trace H (Negative) 04/28/23 Range/Units 05:16 RBC (4.20-5.50) X10*6/uL Anion Gap 10 L (12-20) BUN 20 H (9-16) mg/dL Creatinine (0.5-1.4) mg/dL Calcium 8.2 L D (8.4-10.2) mg/dL Urine Protein (Neg-Trace) mg/dL Ur Leukocyte Esterase (Negative) Short CBC 02/01/23 02/02/23 Range/Units 11:56 05:16 WBC 9.5 7.5 (4.8-10.8) X10*3/uL Hgb 14.9 13.1 (12.0-16.0) g/dl Hct 43.7 37.7 (37.0-47.0) % Plt Count 203 176 (160-400) X10*3/uL BMP 02/01/23 02/02/23 11:56 05:16 Sodium 138 139 Potassium 4.1 4.1 Chloride 101 108 Carbon Dioxide 27 25 BUN 19 H 20 H Creatinine 1.41 H 1.18 Calcium 9.0 8.2 L D Liver Function 02/01/23 Range/Units 11:56 Total Bilirubin 0.5 (0.0-1.0) mg/dL AST 22 (5-31) U/L ALT 23 (0-31) U/L Alkaline Phosphatase 76 (39-117) U/L Albumin 4.0 (3.5-5.0) g/dL Urine 02/01/23 Range/Units 20:47 Urine Color Yellow Urine Appearance Clear Urine pH 5.5 (5.0-9.0) Ur Specific [place] 1.015 (1.005-1.025) Urine Protein 30 (1+) H (Neg-Trace) mg/dL Urine Glucose (UA) Negative (Negative) mg/dL All other labs normal. Assessment and Plan (1) Abdominal pain: Status: Acute Plan 67-year-old female patient presenting with complaints of abdominal pain and distension with associated nausea and vomiting, diarrhea found to have dilated loops of proximal small bowel suggestive of a partial small-bowel obstruction versus ileus. She is having diarrhea currently which would suggest a gastroente ritis rather than obstruction. Recommend supportive care with IV fluids and bowel rest. If small-bowel obstruction is still a consideration, would recommend a small-bowel follow-through. No surgical intervention recommended at this time. Time Spent With Patient Time: Total time managing care of this patient today ____ minutes. Procedures Date of Service Date of Service: 02/02/23
--- NOTE | 2023-02-02 09:06 | PHA.MEDREC ---
Pharmacy Consult ? Medication Reconciliation Pharmacy has completed the medication reconciliation. Used massotherapist. Patient said they werent taking cefuroxime, b6, prochlorperazine
--- NOTE | 2023-02-02 10:51 | MHC.CM.PN ---
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
--- NOTE | 2023-02-02 11:10 | PC.NURSE ---
pt ambulated to the bathroom with steady gait and provided a stool sample
--- NOTE | 2023-02-02 13:31 | PC.NURSE ---
pt reports pain at 5/10 but does not want any pain meds at this time
[2023-02-02 14:34] LABS: Adenovirus F 40/41 Not Detected (Not Detect.); Astrovirus Not Detected (Not Detect.); Campylobacter Not Detected (Not Detect.); Cryptosporidium Not Detected (Not Detect.); Cyclospora cayetanensis Not Detected (Not Detect.); E. coli EAEC Not Detected (Not Detect.); E. coli EPEC Not Detected (Not Detect.); E. coli ETEC Not Detected (Not Detect.); E. coli STEC Not Detected (Not Detect.); Entamoeba histolytica Not Detected (Not Detect.); Giardia lamblia Not Detected (Not Detect.); Plesiomonas shigelloides Not Detected (Not Detect.); Salmonella Not Detected (Not Detect.); Shigella sp./EIEC Not Detected (Not Detect.); Vibrio Not Detected (Not Detect.); Vibrio Cholerae Not Detected (Not Detect.); Yersinia enterocolitica Not Detected (Not Detect.)
[2023-02-02 14:43] LABS: Norovirus GI/GII Detected (Not Detect.); Rotavirus A Not Detected (Not Detect.); Sapovirus Not Detected (Not Detect.)
--- NOTE | 2023-02-02 14:47 | MHC.IC ---
Patient is positive for Norovirus. Please was hands with soap and water after all contact and use bleach for cleaning surfaces.
--- NOTE | 2023-02-02 15:35 | MHC.EDTECH ---
this pct assumed care of pt at 1500 ,pt vitals sign taken ,pt has a room om med surge waiting to go up .
--- NOTE | 2023-02-02 16:22 | PC.NURSE ---
report given to med/surgical services tech
--- NOTE | 2023-02-02 17:07 | PC.NURSE ---
pt admitted to 352 from the ER . pt was able to ambulate from stretcher to bed oriented to room and call [facility] system Iv fluids infusing as per orders . placed on contact precautions per ordres
[2023-02-02] MEDS: Pregabalin 150 MG CAPSULE PO (20:21)
[2023-02-02] MEDS: Pregabalin 25 MG CAPSULE PO (20:22)
[2023-02-02] MEDS: carBAMazepine 200 MG TABLET 400 MG PO (20:22)
[2023-02-02] MEDS: Hydroxychloroquine Sulfate 200 MG TABLET PO (20:22)
[2023-02-03 06:36] LABS: Hematocrit 36.9 % (37.0-47.0); Hemoglobin 12.4 g/dl (12.0-16.0); Mean Corpuscular HGB Conc 33.6 g/dl (31.0-35.0); Mean Corpuscular Hemoglobin 31.6 pg (27.0-33.0); Mean Corpuscular Volume 93.9 fL (80.0-98.0); Mean Platelet Volume 10.8 fL (9.4-12.3); Platelet Count 176 X10*3/uL (160-400); Red Blood Count 3.93 X10*6/uL (4.20-5.50); Red Cell Distribution Width 12.4 % (11.0-16.0); White Blood Count 6.9 X10*3/uL (4.8-10.8)
[2023-02-03 06:54] LABS: Anion Gap 9 (12-20); Blood Urea Nitrogen 12 mg/dL (9-16); Calcium 8.4 mg/dL (8.4-10.2); Carbon Dioxide 29 mmol/L (22-29); Chloride 107 mmol/L (96-108); Creatinine Clr Calc Pharmacy 45.9; Estimated Glomerular Filt Rate 48; Glucose Fasting 103 mg/dL (60-99); Sodium 140 mmol/L (135-145)
[2023-02-03 07:51] VITALS: BP 115/56; PULSE 76; RESP 17; TEMP 36.5; O2SAT 97
--- NOTE | 2023-02-03 08:45 | HO.PM.IMPN ---
Subjective Subjective Date of Service: 02/03/23 Interval History: feeling much better Physical Exam Vital Signs: Vital Signs: Last Vital Signs Temp 97.7 F 02/03/23 07:51 Pulse 76 02/03/23 07:51 Resp 17 02/03/23 07:51 BP 115/56 L 02/03/23 07:51 Pulse Ox 97 02/03/23 07:51 O2 Del Method Room Air 02/03/23 07:51 BMI result Body Mass Index 31.2 General: AO X 3, no acute distress Resp: CTA bilateral, no accessory muscles used CVS: S1,S2,RRR GI: soft, non tender, non distended Neuro: motor grossly intact, alert Psych: appropriate affect, appropriate insight Objective Data Active Medications Acetaminophen (Acetaminophen 325 Mg Tablet) 650 mg PO Q6H PRN PRN Reason: Pain, Mild (Pain Scale 1-3) Acetaminophen (Acetaminophen Supp 650 Mg Supp.Rect) 650 mg [place] Q6H PRN PRN Reason: Pain, Mild (Pain Scale 1-3) Carbamazepine (Carbamazepine 200 Mg Tablet) 400 mg PO BID [facility] Last Admin: 02/02/23 20:22 Dose: 400 mg Documented By: TATI Enoxaparin Sodium (Enoxaparin Sodium 40 Mg/0.4 Ml Syringe) 40 mg SUBCUT 2100 [facility] Last Admin: 02/02/23 20:22 Dose: 40 mg Documented By: TATI Hydroxychloroquine Sulfate (Hydroxychloroquine Sulfate 200 Mg Tablet) 200 mg PO BID [facility] Last Admin: 02/02/23 20:22 Dose: 200 mg Documented By: TATI Dextrose/Sodium Chloride (D51/2ns) 1,000 mls @ 80 mls/hr IVCONT .[id number] [facility] Last Admin: 02/02/23 23:30 Dose: 80 mls/hr Documented By: TATI Melatonin (Melatonin 3 Mg Tablet) 6 mg PO BEDTIME PRN PRN Reason: Insomnia Morphine Sulfate (Morphine Sulfate 2 Mg/Ml Cartridge) 2 mg IVPUSH Q3H PRN; Protocol PRN Reason: moderate pain Last Admin: 02/02/23 18:30 Dose: 2 mg Documented By: KAI Ondansetron HCl (Ondansetron Hcl 4 Mg/2 Ml Vial) 4 mg IVPUSH Q8H PRN PRN Reason: Nausea and Vomiting Pharmacy Consult (Consult Rx Perform Med Rec) 1 each MISCELLANE ONCE PRN PRN Reason: Consult order Pregabalin (Pregabalin 25 Mg Capsule) 25 mg PO BID [facility] Last Admin: 02/02/23 20:22 Dose: 25 mg Documented By: TATI Pregabalin (Pregabalin 150 Mg Capsule) 150 mg PO BID [facility] Last Admin: 02/02/23 20:21 Dose: 150 mg Documented By: TATI Sodium Chloride (0.9 % Sodium Chloride Flush 3 Ml Syringe) 3 ml IVFLUSH QSHIFT [facility] Last Admin: 02/03/23 08:37 Dose: Not Given Documented By: JOSÉ LUIS Non-Admin Reason: IV Running Labs 02/03/23 05:32 02/03/23 05:32 Labs: Laboratory Results - last 24 hr 02/02/23 02/03/23 02/03/23 11:02 05:32 05:32 MCV 93.9 MCH 31.6 MCHC 33.6 RDW 12.4 Plt Count 176 MPV 10.8 Absolute Nucleated RBC 0.000 Nucleated RBC % (auto) 0.0 Anion Gap 9 L Estim Creat Clear Calc 45.9 Estimated GFR 48 Fasting Glucose 103 H Calcium 8.4 Stl C. cayetanensis PCR Not Detected Stool Rotavirus A PCR Not Detected Stl Adenov F 40/41 PCR Not Detected Stool Astrovirus (PCR) Not Detected Stool Campylobacter PCR Not Detected Stool Cryptosporidium PCR Not Detected Stl Sh Tox Pr E STEC PCR Not Detected Stool E coli O157 PCR Not applicable Stl Enterotoxigenic E PCR Not Detected Stool EPEC (PCR) Not Detected Stool EAEC (PCR) Not Detected Stl E. histolytica PCR Not Detected Stool Giardia Lamblia PCR Not Detected Stl P. shigelloides PCR Not Detected Stool Salmonella PCR Not Detected Stool Sapovirus (PCR) Not Detected Stl Shigella/EIEC PCR Not Detected St Y.enterocolitica PCR Not Detected Stool Vibrio (PCR) Not Detected Stl Vibrio cholerae PCR Not Detected Stl Norovirus GI/GII PCR Detected A Assessment and Plan (1) Abdominal pain: Status: Acute Plan 67F PMH trigeminal neuralgia, rheumatoid arthritis, gastroesophageal reflux disease, fibromyalgia who presented to the emergency department for evaluation of abdominal discomfort. ileus due to norovirus complicatyed by marcy marcy improved had diarrhea, now improving, pcr positive for norovirus will advance to solids Trigeminal neuralgia carbamazipine lyrica rheumatoid arthritis hold enteracept continue plaqueniil dvt prophylaxis - lovenox full code reason for continued hospitalization: awaiting po tolerance Time Spent With Patient Time: Total time managing care of this patient today ____ minutes. Quality Stroke Does the patient have a stroke diagnosis?: No VTE Prior VTE?: No VTE Risk Level:: Medical - moderate - high VTE Device Contraindication: Treatment Not Indicated VTE Drug Contraindication: N/A - Med Ordered
[2023-02-03] MEDS: Hydroxychloroquine Sulfate 200 MG TABLET PO ×2 (08:47→20:25)
[2023-02-03] MEDS: carBAMazepine 200 MG TABLET 400 MG PO ×2 (08:47→20:24)
[2023-02-03] MEDS: Pregabalin 150 MG CAPSULE PO ×2 (08:47→20:25)
[2023-02-03] MEDS: Pregabalin 25 MG CAPSULE PO ×2 (08:47→20:25)
[2023-02-03] MEDS: Dextrose 5 % and 0.45 % NaCl 1,000 ML 80 ML IVCONT ×2 (08:48→23:27)
--- NOTE | 2023-02-03 12:34 | PM.PNGS ---
Subjective Subjective Date of Service: 02/03/23 Interval history: Patient is having a lot of diarrhea last night into this morning and is on precautions as norovirus came back positive. She is also complaining of pain in the mid abdomen and then the left side radiating to her left flank. She says that this feels like her kidney stones in the past. On reviewing some of her imaging she has had several CT scans in the last few months and there was no evidence of any kidney stones present. Her UA from 2 days ago was negative for any blood. She does say however this feels like her kidney stones from the past Physical Exam Vital Signs: Vital Signs: Last Vital Signs Temp 97.7 F 02/03/23 07:51 Pulse 76 02/03/23 07:51 Resp 17 02/03/23 07:51 BP 115/56 L 02/03/23 07:51 Pulse Ox 97 02/03/23 07:51 O2 Del Method Room Air 02/03/23 07:51 BMI result Body Mass Index 31.2 Const: General: cooperative and no acute distress Orientation/consciousness: oriented to person, oriented to place and oriented to time HEENT: Head: Yes normal to inspection Resp: Effort & Inspection: normal respiratory effort Auscultation: clear to auscultation bilaterally Cardio: Rate: regular rate Rhythm: regular rhythm GI: Other: abdomen is soft it is very round but her says it is her baseline fullness. She does have bowel sounds she is tender in the midline area with some guarding. She also has some left flank tenderness with palpation. No masses are palpable Skin: General skin exam: no rashes or lesions noted Neuro: General: oriented to person, oriented to place and oriented to time Extrem: General: Yes normal to inspection Objective Data Active Medications Acetaminophen (Acetaminophen 325 Mg Tablet) 650 mg PO Q6H PRN PRN Reason: Pain, Mild (Pain Scale 1-3) Acetaminophen (Acetaminophen Supp 650 Mg Supp.Rect) 650 mg [place] Q6H PRN PRN Reason: Pain, Mild (Pain Scale 1-3) Carbamazepine (Carbamazepine 200 Mg Tablet) 400 mg PO BID [facility] Last Admin: 02/03/23 08:47 Dose: 400 mg Documented By: JOSÉ LUIS Enoxaparin Sodium (Enoxaparin Sodium 40 Mg/0.4 Ml Syringe) 40 mg SUBCUT 2100 [facility] Last Admin: 02/02/23 20:22 Dose: 40 mg Documented By: TATI Hydroxychloroquine Sulfate (Hydroxychloroquine Sulfate 200 Mg Tablet) 200 mg PO BID [facility] Last Admin: 02/03/23 08:47 Dose: 200 mg Documented By: JOSÉ LUIS Dextrose/Sodium Chloride (D51/2ns) 1,000 mls @ 80 mls/hr IVCONT .[id number] [facility] Last Admin: 02/03/23 08:48 Dose: 80 mls/hr Documented By: JOSÉ LUIS Melatonin (Melatonin 3 Mg Tablet) 6 mg PO BEDTIME PRN PRN Reason: Insomnia Morphine Sulfate (Morphine Sulfate 2 Mg/Ml Cartridge) 2 mg IVPUSH Q3H PRN; Protocol PRN Reason: moderate pain Last Admin: 02/02/23 18:30 Dose: 2 mg Documented By: KAI Ondansetron HCl (Ondansetron Hcl 4 Mg/2 Ml Vial) 4 mg IVPUSH Q8H PRN PRN Reason: Nausea and Vomiting Pharmacy Consult (Consult Rx Perform Med Rec) 1 each MISCELLANE ONCE PRN PRN Reason: Consult order Pregabalin (Pregabalin 25 Mg Capsule) 25 mg PO BID [facility] Last Admin: 02/03/23 08:47 Dose: 25 mg Documented By: JOSÉ LUIS Pregabalin (Pregabalin 150 Mg Capsule) 150 mg PO BID [facility] Last Admin: 02/03/23 08:47 Dose: 150 mg Documented By: JOSÉ LUIS Sodium Chloride (0.9 % Sodium Chloride Flush 3 Ml Syringe) 3 ml IVFLUSH QSHIFT [facility] Last Admin: 02/03/23 08:37 Dose: Not Given Documented By: JOSÉ LUIS Non-Admin Reason: IV Running Labs 02/03/23 05:32 02/03/23 05:32 Labs: Laboratory Results - last 24 hr 02/02/23 02/03/23 02/03/23 11:02 05:32 05:32 MCV 93.9 MCH 31.6 MCHC 33.6 RDW 12.4 Plt Count 176 MPV 10.8 Absolute Nucleated RBC 0.000 Nucleated RBC % (auto) 0.0 Anion Gap 9 L Estim Creat Clear Calc 45.9 Estimated GFR 48 Fasting Glucose 103 H Calcium 8.4 Stl C. cayetanensis PCR Not Detected Stool Rotavirus A PCR Not Detected Stl Adenov F 40/41 PCR Not Detected Stool Astrovirus (PCR) Not Detected Stool Campylobacter PCR Not Detected Stool Cryptosporidium PCR Not Detected Stl Sh Tox Pr E STEC PCR Not Detected Stool E coli O157 PCR Not applicable Stl Enterotoxigenic E PCR Not Detected Stool EPEC (PCR) Not Detected Stool EAEC (PCR) Not Detected Stl E. histolytica PCR Not Detected Stool Giardia Lamblia PCR Not Detected Stl P. shigelloides PCR Not Detected Stool Salmonella PCR Not Detected Stool Sapovirus (PCR) Not Detected Stl Shigella/EIEC PCR Not Detected St Y.enterocolitica PCR Not Detected Stool Vibrio (PCR) Not Detected Stl Vibrio cholerae PCR Not Detected Stl Norovirus GI/GII PCR Detected A Procedures Date of Service Date of Service: 02/03/23 Progress Note: A&P Assessment and plan (1) Abdominal pain: Status: Acute Assessment and Plan: 67-year-old female with abdominal pain and some distension and now testing positive for norovirus. Her CT scan showed some distended small bowel moving into his some normal looking bowel without any distinct transition. At this point I do not think that there is anything surgical going on and that her symptoms are secondary to her GI pathology. She does complain about the left flank pain which is similar to her kidney stone she says but she has had multiple imaging and would not do anything different at this point in time. Suggested to the medical team to just get another UA and see if there is any blood noted in her urinalysis. Advance diet as tolerated with her norovirus. Time Spent With Patient Time: Total time managing care of this patient today ____ minutes. Quality Stroke Does the patient have a stroke diagnosis?: No VTE Prior VTE?: No VTE Risk Level:: Medical - moderate - high VTE Device Contraindication: Treatment Not Indicated VTE Drug Contraindication: N/A - Med Ordered
[2023-02-03 15:02] LABS: Appearance Urine Cloudy; Color Urine Yellow; Glucose Urine UA Negative (Negative); Leukocyte Esterase Urine Small (1+) (Negative); Nitrite Urine Negative (Negative); PH 5.5 (5.0-9.0); UMIC TRIGGER UA YES; Urine Blood Negative (Negative); Urine Ketones Negative (Negative); Urine Protein Negative (Neg-Trace)
[2023-02-03] MEDS: Morphine Sulfate 2 MG/ML CARTRIDGE IVPUSH ×2 (15:06→19:29)
[2023-02-03] MEDS: 0.9 % Sodium Chloride Flush 3 ML SYRINGE IVFLUSH (15:08)
[2023-02-03 15:14] LABS: Bacteria Urine 1+ (None Seen); Hyaline Casts Urine 0-2 /LPF (0-2); Squamous Epithelial Cell Urine >20 /HPF (0-2)
[2023-02-03 15:48] VITALS: BP 123/61; PULSE 87; RESP 16; TEMP 36.4; O2SAT 92
[2023-02-03] MEDS: Enoxaparin Sodium 40 MG/0.4 ML SYRINGE SUBCUT (20:25)
[2023-02-03 21:12] VITALS: BP 115/56; PULSE 85; RESP 16; TEMP 36; O2SAT 96
[2023-02-04 07:50] VITALS: BP 114/59; PULSE 80; RESP 18; TEMP 36.3; O2SAT 93
--- NOTE | 2023-02-04 08:33 | P.DS_ITS ---
DS: Providers Provider Date of Service: 02/04/23 Date of admission: 02/02/23 00:11 Primary care physician: Lakshmi Rouse MD Consults: 02/02/23 01:30 Consult to General Surgery Routine Consulting Provider: [facility] General Surgeons Reason for consultation: partial sbo DS: Diagnosis Discharge Diagnosis (1) Abdominal pain: Status: Acute DS: Summary Hospital Course Hospital Course: from initial hpi: This is a 67-year-old female with pertinent history of trigeminal neuralgia, rheumatoid arthritis, gastroesophageal reflux disease, fibromyalgia who presents to the emergency department for evaluation of abdominal discomfort.? Patient states she has been having generalized abdominal discomfort that started 4 days prior to presentation, it has been constant, nonradiating and without any relie ving factors.? Patient was seen in the ER on 01/28 and discharged with a diagnosis of UTI and gastroenteritis.? Patient states she took her medicines for UTI and a UTI symptoms have improved.? Does report decreased appetite due to abdominal discomfort.? She denies fever, chills, chest discomfort, palpitations, shortness of breath, changes in urinary or bowel habits In the emergency department, it imaging concerning for ileus or small-bowel obstruction.? Creatinine was found to be elevated hospital course: patient was admitted for ileus due to norovirus gastroenteritis complicated by VARSHA. she was treated with pain meds, iv hydration. she started have bowel movements and pain improved. she was advanced to solids and is now tolerating well. for trigeminal neuralgia she was continued on carbamazpine and lyrica. for RA was continued on plaquenil, patient feeling better and will be discharged home. Time Spent with Patient Time attestation: Total time managing care of this patient today ____ minutes. Discharge coordination time: Greater than 30 minutes Quality: Safe Use of Opioids Does Pt have an Active Cancer Diagnosis on the Problem List?: No Quality: Stroke Does the patient have a stroke diagnosis?: No Physical Exam Vital Signs: Vital Signs: Last Vital Signs Temp 97.3 F 02/04/23 07:50 Pulse 80 02/04/23 07:50 Resp 18 02/04/23 07:50 BP 114/59 L 02/04/23 07:50 Pulse Ox 93 02/04/23 07:50 O2 Del Method Room Air 02/04/23 07:50 BMI result Body Mass Index 31.2 General: AO X 3, no acute distress Resp: CTA bilateral, no accessory muscles used CVS: S1,S2,RRR GI: soft, non tender, non distended Neuro: motor grossly intact, alert Psych: appropriate affect, appropriate insight DS: Data Data Completed and Pending Completed studies during hospitalization [Text1]: Procedures Assistance with Respiratory Ventilation, Less than 24 Consecutive Hours, Continuous Positive Airway Pressure (07/11/22) Replacement of Left Knee Joint with Synthetic Substitute, Uncemented, Open Approach (07/11/22) Labs on day of discharge: Laboratory Results - last 24 hr 02/03/23 14:37 Urine Color Yellow Urine Appearance Cloudy Urine pH 5.5 Ur Specific [place] 1.010 Urine Protein Negative Urine Glucose (UA) Negative Urine Ketones Negative Urine Blood Negative Urine Nitrite Negative Ur Leukocyte Esterase Small (1+) H Urine RBC 3-5 H Urine WBC 11-20 H Ur Squamous Epith Cells >20 Urine Bacteria 1+ Hyaline Casts 0-2 Discharge Plan Discharge Anticipated Discharge Date/Time: 02/04/23 08:32 Patient Disposition: Home, Self-Care Discharge Diagnosis: norovirus, ileus Referrals: Lakshmi Rouse MD [Primary Care Provider] - 1 Week Discharge Medications: Continued pregabalin 150 mg capsule 1 cap PO BID hydroxychloroquine 200 mg tablet 200 mg PO BID Enbrel SureClick 50 mg/mL (1 mL) pen injector 50 mg subcut SA pregabalin 25 mg capsule 25 mg PO BID carbamazepine 200 mg tablet 400 mg PO BID Discharge Orders: Discharge Order (Routine); Ordered 02/04/23 Ordered By: Tomasz Stauffer Diet: Advance to usual diet Activity on Discharge: As tolerated Stand Alone Forms: Patient Portal Discharge page Care Plan Goals: recovery Health Concerns: ileus, norovirus Plan of Treatment: hand hygeine, advance diet as tolerated Assessment: see above
--- NOTE | 2023-02-04 08:34 | MHC.CM.PN ---
PATIENT IS DC HOME WITH RESUMPTION OF HER UTILITY [employer] SERVICES PER PREVIOUS CM NOTE, DAUGHTER TO PROVIDE TRANPORTATION. RN AWARE OF PLAN
[2023-02-04] MEDS: carBAMazepine 200 MG TABLET 400 MG PO (09:02)
[2023-02-04] MEDS: Pregabalin 25 MG CAPSULE PO (09:03)
[2023-02-04] MEDS: Hydroxychloroquine Sulfate 200 MG TABLET PO (09:03)
[2023-02-04] MEDS: Pregabalin 150 MG CAPSULE PO (09:06)
--- NOTE | 2023-02-04 11:38 | MHC.CM.PN ---
WITH ASSIST OF DIRECTOR [employer], PATIENT IS AGREEABLE TO DC HOME SHE AND SPOUSE (IN ROOM) UNDERSTAND HER DX, AND DC TREATMENT PLAN BETTER RN AWARE OF PLAN. SPOUSE TO TRANSPORT HOME AFTER LUNCH
== END 2023-02-04 13:21 | disposition home or self-care (01) ==
LOC: HO.ED 23:26 → HO.EDOVER 02-02 00:15 → HO.S3 02-02 14:13
PROVIDERS: Physician Assistant; Admitting Provider Student in an Organized Health Care Education/Training Program; Emergency Provider Emergency Medicine; PCP Internal Medicine; Visit Provider Internal Medicine
DX: A08.11 Acute gastroenteropathy due to Norwalk agent (principal); K56.7 Ileus, unspecified; R10.84 Generalized abdominal pain; N17.9 Acute kidney failure, unspecified; Z87.440 Personal history of urinary (tract) infections; Z87.442 Personal history of urinary calculi; Z79.899 Other long term (current) drug therapy
CPT/HCPCS: 36415; 74018; 74176; 80048; 80053; 81001; 81003; 83690; 83735; 85025; 85027; 87507; 96360; 96365; 96366; 96372; 96375; 96376; 99221; 99285; J1650; J2270

== ENCOUNTER 2023-02-15 12:04 | Outpatient (REF) | payer OTHER, SELFPAY ==
--- NOTE | ~2023-02-15 | XR_ITS ---
EXAMINATION: XR KNEE STANDING, BILATERAL XR KNEE, LEFT CLINICAL INFORMATION: Knee pain. COMPARISON: 10/27/2022 TECHNIQUE: AP standing view of both knees and lateral and sunrise views of the left knee. FINDINGS: Patient is status post bilateral total knee arthroplasties with prosthetic components in good position and without evidence of hardware failure or fracture. There is a left knee effusion. XR/XR knee standing BI IMPRESSION: Status post bilateral total knee arthroplasty without hardware failure identified. Left knee effusion.
--- NOTE | ~2023-02-15 | XR_ITS ---
EXAMINATION: XR KNEE STANDING, BILATERAL XR KNEE, LEFT CLINICAL INFORMATION: Knee pain. COMPARISON: 10/27/2022 TECHNIQUE: AP standing view of both knees and lateral and sunrise views of the left knee. FINDINGS: Patient is status post bilateral total knee arthroplasties with prosthetic components in good position and without evidence of hardware failure or fracture. There is a left knee effusion. XR/XR knee LT 2V IMPRESSION: Status post bilateral total knee arthroplasty without hardware failure identified. Left knee effusion.
== END 2023-02-15 12:05 | disposition home or self-care (01) ==
LOC: HO.HOSX 12:04
PROVIDERS: Visit Provider Orthopaedic Surgery
DX: Z96.652 Presence of left artificial knee joint (principal)
CPT/HCPCS: 73560; 73565; 99212

== ENCOUNTER 2023-02-21 12:14 | Outpatient (REF) | payer OTHER, SELFPAY ==
[2023-02-21 12:25] LABS: MANUAL DIFF FLAG NO
[2023-02-21 12:43] LABS: Basophils Absolute Auto 0.1 X10*3/uL (0.0-0.2); Eosinophils Absolute Auto 0.1 X10*3/uL (0.0-0.4); Eosinophils Percent Auto 2.4 % (0-4); Hematocrit 35.3 % (37.0-47.0); Hemoglobin 11.9 g/dl (12.0-16.0); Lymphocytes Absolute Auto 2.2 X10*3/uL (1.2-4.9); Lymphocytes Percent Auto 44.1 % (20-40); Mean Corpuscular HGB Conc 33.7 g/dl (31.0-35.0); Mean Corpuscular Hemoglobin 31.8 pg (27.0-33.0); Mean Corpuscular Volume 94.4 fL (80.0-98.0); Monocytes Absolute Auto 0.5 X10*3/uL (0.1-1.2); Monocytes Percent Auto 9.5 % (2-11); Neutrophils Absolute Auto 2.1 x10*3/uL (2.0-8.3); Platelet Count 172 X10*3/uL (160-400); Red Blood Count 3.74 X10*6/uL (4.20-5.50); White Blood Count 4.9 X10*3/uL (4.8-10.8)
[2023-02-21 13:21] LABS: Erythrocyte Sedimentation Rate 21 MM/HR (0-20)
[2023-02-21 14:41] LABS: Alanine Aminotransferase 17 U/L (0-31); Albumin Level 3.6 g/dL (3.5-5.0); Alkaline Phosphatase 71 U/L (39-117); Anion Gap 9 (12-20); Aspartate Amino Transferase 21 U/L (5-31); Bilirubin Total 0.4 mg/dL (0.0-1.0); Blood Urea Nitrogen 14 mg/dL (9-16); C Reactive Protein < 0.10 mg/dL (< or = 0.50); Calcium 8.7 mg/dL (8.4-10.2); Carbon Dioxide 29 mmol/L (22-29); Chloride 110 mmol/L (96-108); Estimated Glomerular Filt Rate > 60; Glucose Random 85 mg/dL (60-115); Potassium 4.4 mmol/L (3.3-5.1); Sodium 144 mmol/L (135-145); Total Protein 6.7 g/dL (6.5-8.0)
== END 2023-02-21 12:15 | disposition home or self-care (01) ==
LOC: HO.LAB 12:14
PROVIDERS: PCP Internal Medicine; Visit Provider Nurse Practitioner Family
DX: M06.00 Rheumatoid arthritis without rheumatoid factor, unspecified site (principal)
CPT/HCPCS: 36415; 80053; 85025; 85652; 86140

== ENCOUNTER 2023-03-06 13:22 | Outpatient (AMB) | payer OTHER, SELFPAY ==
--- NOTE | 2023-03-06 13:26 | A.OFFPC_ITS ---
<Statement entered by Lakshmi Rouse MD - 03/05/25 16:33> This note has been administratively?closed. Vital Signs 03/06/23 13:27 Height 5 ft Weight 166 lb BMI 32.4 BP 132/62 Blood Pressure Location Lt brachial Position Sitting Pulse 94 Pulse Source Pulse Oximeter Pulse Oximetry (%) 95 Oxygen Delivery Method Room Air Intake Visit Reasons: Left Knee Itchiness Intake Note: Pt is here today c/o Lt knee rash Allergies hydroxychloroquine Adverse Reaction (Intermediate, Verified 01/14/25 16:57) Questionable retinopathy Tobacco use date assessed: 03/06/23 Fall risk assessment: 1 Fall in past year Last assessed Fall Risk: 03/06/23 HPI Left Knee Itchiness HPI Details 67-year-old lady here today complaining of are pruritic rash on upper aspect of left knee which has been present now for the last 4 months. Patient states initially it was a small spot that gradually increased in size. Has been applying eczema Eucerin cream which has not afforded any relief PFSH Medical History Intermittent lightheadedness Intertrigo Vitamin D deficiency Recurrent kidney stones Sleep apnea Splenic artery aneurysm Shoulder pain, right Trigeminal neuralgia of right side of face Seronegative rheumatoid arthritis Loose right total knee arthroplasty Gastroesophageal reflux disease Hiatal hernia Tailor's bunion of left foot Fibromyalgia Osteoarthritis Impaired fasting glucose Insomnia Cervical spondylosis without myelopathy Autoimmune urticaria Morbid obesity due to excess calories Surgical History S/P hip replacement History of esophagogastroduodenoscopy (EGD) History of colonoscopy History of arthroscopy of right shoulder History of laparoscopic cholecystectomy Status post laser lithotripsy of ureteral calculus History of bunionectomy of left great toe History of cranioplasty History of shoulder surgery Status post right knee replacement Family History Father Emphysema of lung Mother Hypertension Maternal Grandmother No problems noted. Maternal Grandfather No problems noted. Paternal Grandmother No problems noted. Paternal Grandfather No problems noted. Maternal Aunt Diabetes Sister No problems noted. Son No problems noted. Daughter No problems noted. Social History Household Members: Spouse and Family Household Members Other:: mother,daughter Housing: House Are you a primary neonatal critical care nurse to a significant other at home: No Do you presently have visiting nurse or other home services: No Alcohol intake: never Patient Tobacco Use Status: Never used Tobacco e-Cigarette/Vaping Use: Never Used service: No Current occupational status: unemployed Current occupation: rt handed Cognitive needs: No Hearing needs: No Vision needs: No Questionnaire Thrive Questionnaire Date Thrive assessed: 10/25/21 AUDIT C Alcohol Use Questionnaire (AUDIT-C) 1. How often do you have a drink containing alcohol?: Never Total Score: 0 JOSÉ MANUEL-7 AMB Questionnaire JOSÉ MANUEL-7 Date JOSÉ MANUEL - 7 assessed: 10/25/21 Source: Developed by Drs. Raza Nova, Kassandra Munoz, Steven Velasco and colleagues, with an educational nyla from [email or web address]. Physical exam (Primary Care) Vital Signs: Last Vital Signs Pulse 94 03/06/23 13:27 BP 132/62 03/06/23 13:27 Pulse Ox 95 03/06/23 13:27 Oxygen Delivery Method Room Air 03/06/23 13:27 BMI result Body Mass Index 32.4 Tobacco/Smoking Status: Tobacco use Status Tobacco use date assessed 03/06/23 03/06/23 13:31 Patient Tobacco Use Status Never used Tobacco 03/06/23 13:31 e-Cigarette/Vaping Use Never Used 03/06/23 13:31 Thrive Assessment: Date of Thrive Assessment Date Thrive assessed 10/25/21 03/06/23 13:31 Skin Other: Erythematous papular patch on lateral aspect of left knee Extrem Other: No gross bone deformity or joint swelling seen Coding Level of Care Code Admin Sign Off/No Billing Diagnoses Rash and nonspecific skin eruption R21
[2023-03-06 13:27] VITALS: BP 132/62; PULSE 94; O2SAT 95; BMI 32.4
== END 2023-03-06 14:18 | disposition home or self-care (01) ==
LOC: HO.HMGC 13:22
PROVIDERS: PCP Internal Medicine; Visit Provider Internal Medicine
DX: R21 Rash and other nonspecific skin eruption (principal)
CPT/HCPCS: 99499

== ENCOUNTER 2023-03-19 10:36 | Outpatient (REF) | payer OTHER, SELFPAY ==
--- NOTE | ~2023-03-19 | XR_ITS ---
EXAMINATION: Knee x-ray CLINICAL INFORMATION: Pain COMPARISON: Previous x-ray recent February 2023 TECHNIQUE: Standing AP and sunrise view of both knees FINDINGS: Right: Bone alignment is normal. No fracture or dislocation. There is a right knee replacement in satisfactory position. No joint effusion. Left: Bone alignment is normal. No fracture or dislocation. There is a left knee replacement in satisfactory position. There is a small left knee joint effusion. There is soft tissue swelling over the left knee. XR/XR knee standing BI IMPRESSION: Satisfactory appearance of bilateral knee replacements. Left knee joint effusion and anterior tissue swelling.
--- NOTE | ~2023-03-19 | XR_ITS ---
EXAMINATION: XR PELVIS CLINICAL INFORMATION: Pain COMPARISON: None available. TECHNIQUE: AP view of the pelvis. FINDINGS: Bone alignment is normal. No fracture or dislocation. There is bilateral hip arthritis with joint space narrowing and osteophyte formation, right greater than left. Normal sacroiliac joints. Normal soft tissues. Degenerative changes of the visualized lower lumbar spine. XR/XR pelvis 1-2V IMPRESSION: Bilateral hip arthritis, right greater than left.
--- NOTE | ~2023-03-19 | XR_ITS ---
EXAMINATION: Knee x-ray CLINICAL INFORMATION: Pain COMPARISON: Previous x-ray recent February 2023 TECHNIQUE: Standing AP and sunrise view of both knees FINDINGS: Right: Bone alignment is normal. No fracture or dislocation. There is a right knee replacement in satisfactory position. No joint effusion. Left: Bone alignment is normal. No fracture or dislocation. There is a left knee replacement in satisfactory position. There is a small left knee joint effusion. There is soft tissue swelling over the left knee. XR/XR knee LT 2V IMPRESSION: Satisfactory appearance of bilateral knee replacements. Left knee joint effusion and anterior tissue swelling.
--- NOTE | ~2023-03-19 | XR_ITS ---
EXAMINATION: Knee x-ray CLINICAL INFORMATION: Pain COMPARISON: Previous x-ray recent February 2023 TECHNIQUE: Standing AP and sunrise view of both knees FINDINGS: Right: Bone alignment is normal. No fracture or dislocation. There is a right knee replacement in satisfactory position. No joint effusion. Left: Bone alignment is normal. No fracture or dislocation. There is a left knee replacement in satisfactory position. There is a small left knee joint effusion. There is soft tissue swelling over the left knee. XR/XR knee RT 2V IMPRESSION: Satisfactory appearance of bilateral knee replacements. Left knee joint effusion and anterior tissue swelling.
== END 2023-03-19 10:37 | disposition home or self-care (01) ==
LOC: HO.HOSX 10:36
PROVIDERS: PCP Internal Medicine; Visit Provider Orthopaedic Surgery
DX: M16.11 Unilateral primary osteoarthritis, right hip (principal); M25.562 Pain in left knee; M25.561 Pain in right knee; Z96.652 Presence of left artificial knee joint
CPT/HCPCS: 72170; 73560; 73565; 99212

== ENCOUNTER → 2023-04-09 14:31 | Outpatient (BNVA) | payer OTHER, SELFPAY | PROVIDERS: PCP Internal Medicine; Visit Provider Internal Medicine | DX: M16.11 Unilateral primary osteoarthritis, right hip (principal) | CPT/HCPCS: 99202 ==

== ENCOUNTER 2023-05-16 06:00 | Outpatient (REF) | payer OTHER, SELFPAY ==
--- NOTE | ~2023-05-16 | FL_ITS ---
EXAMINATION: XR FLUOROSCOPY WITH IMAGES CLINICAL INFORMATION: Unilateral primary osteoarthritis, right hip. COMPARISON: None available. TECHNIQUE: Fluoroscopy Supervised By: Dr. Ye Mart. Fluoroscopy Time: 0.2 minutes. Cumulative Dose: 5.81 mGy. DAP: 0.866 Gycm2. Images: 2. FINDINGS: There are 2 digital images obtained revealing contrast opacifying the right hip joints space. FL/FL guidance in treatment room IMPRESSION: Fluoroscopy guidance was provided to referring physician for pain management.
== END 2023-05-16 06:01 | disposition home or self-care (01) ==
LOC: CF 06:00
PROVIDERS: Visit Provider Internal Medicine
DX: M16.11 Unilateral primary osteoarthritis, right hip (principal)
CPT/HCPCS: 20610; J2795; J3301; Q9967

== ENCOUNTER 2023-05-16 07:31 | Outpatient (AMB) | payer OTHER, SELFPAY ==
[2023-05-16 07:41] VITALS: BP 132/62; PULSE 72; RESP 14; O2SAT 98; BMI 32.4
--- NOTE | 2023-05-16 07:41 | A.OFFVIS_ITS ---
Intake Vital Signs 05/16/23 07:41 Height 5 ft Weight 166 lb BMI 32.4 BP 132/62 Blood Pressure Location Lt brachial Position Sitting Respiration 14 Pulse 72 Pulse Source Pulse Oximeter Pulse Oximetry (%) 98 Oxygen Delivery Method Room Air Intake Visit Reasons: RIGHT INTRA-ARTICULAR HIP INJECTION Allergies No Known Allergies [No Known Allergies*] Allergy (Verified 04/09/23 14:36) HPI RIGHT INTRA-ARTICULAR HIP INJECTION HPI Details Patient presents for scheduled procedure. Denies any recent cough, cold, infection, fever or other significant changes in medical history since last office visit. [facility] Medical History (Updated 04/08/23 @ 09:25 by Rafael Rojas) Autoimmune urticaria Cervical spondylosis without myelopathy Fibromyalgia Gastroesophageal reflux disease Hiatal hernia Impaired fasting glucose Insomnia Kidney stone on left side Loose right total knee arthroplasty Low back pain at multiple sites Lumbago with sciatica, left side Lumbago with sciatica, right side Morbid obesity due to excess calories Nephrolithiasis Osteoarthritis Recurrent kidney stones Renal calculi Seronegative rheumatoid arthritis Shoulder pain, right Sleep apnea Splenic artery aneurysm Tailor's bunion of left foot Trigeminal neuralgia of right side of face Varices of other sites Surgical History (Updated 03/21/23 @ 12:58 by Peter Matos MD) History of arthroscopy of right shoulder History of bunionectomy of left great toe History of colonoscopy History of cranioplasty History of esophagogastroduodenoscopy (EGD) History of laparoscopic cholecystectomy History of shoulder surgery Status post laser lithotripsy of ureteral calculus Status post right knee replacement Family History Father No problems noted. Mother Hypertension Maternal Grandmother No problems noted. Maternal Grandfather No problems noted. Paternal Grandmother No problems noted. Paternal Grandfather No problems noted. Maternal Aunt Diabetes Sister No problems noted. Son No problems noted. Daughter No problems noted. 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) Alcohol intake: never Patient Tobacco Use Status: Never used Tobacco e-Cigarette/Vaping Use: Never Used service: No Current occupational status: unemployed Current occupation: rt handed Cognitive needs: No Hearing needs: No Vision needs: No Physical Exam Vital Signs: Last Vital Signs Pulse 72 05/16/23 07:41 Resp 14 05/16/23 07:41 BP 132/62 05/16/23 07:41 Pulse Ox 98 05/16/23 07:41 Oxygen Delivery Method Room Air 05/16/23 07:41 BMI result Body Mass Index 32.4 Office Procedures Joint Injection/Drain Joint Injection/Drain Primary Site: other (right hip) Prep: site was prepped using sterile technique and injection warnings given Injected: 40 mg of, Kenalog, with 3 mL of (0.25% ropivacaine) and in the joint Approach Used: anterolateral (under fluoro) Procedure: The patient tolerated the procedure well Coding - Large joint Procedure code (CPT) selection complete Assessment & Plan Assessment & Plan (1) Osteoarthritis of right hip: Code(s): M16.11 - Unilateral primary osteoarthritis, right hip Plan Patient is status post right hip intra-articular steroid injection. Patient tolerated procedure well and was discharged home in stable condition with discharge instructions. All questions were answered. We will follow-up via telephone or in clinic to assess response to therapy. A follow-up appointment was made during today's visit. Orders: Orders FL guidance in treatment room Today M16.11 - Unilateral primary osteoarthritis, right hip Medications: Discontinued hydroxychloroquine 300 mg (1.5 x 200 mg) PO DAILY 45 tabs 3RF etanercept 50 mg subcut QWEEK 4 mL 2RF Coding Level of Care Code Procedure Only Diagnoses Osteoarthritis of right hip M16.11 CPT Codes Coding - 50585 Large joint: 88253 - Large joint ([id number])
== END 2023-05-16 08:44 | disposition home or self-care (01) ==
PROVIDERS: PCP Internal Medicine; Visit Provider Internal Medicine
DX: M16.11 Unilateral primary osteoarthritis, right hip (principal)
CPT/HCPCS: 20610; 77002

== ENCOUNTER 2023-05-18 14:16 | Outpatient (REF) | payer OTHER, SELFPAY ==
[2023-05-18 15:13] LABS: MANUAL DIFF FLAG NO
[2023-05-18 15:43] LABS: Basophils Percent Auto 0.3 % (0-2); Hematocrit 40.2 % (37.0-47.0); Hemoglobin 13.4 g/dl (12.0-16.0); Imm Gran Abs Auto 0.03 X10*3/uL (0.00-0.03); Imm Gran Pct Auto 0.4 % (0.0-0.4); Lymphocytes Absolute Auto 2.2 X10*3/uL (1.2-4.9); Lymphocytes Percent Auto 28.6 % (20-40); Mean Corpuscular HGB Conc 33.3 g/dl (31.0-35.0); Mean Corpuscular Hemoglobin 31.4 pg (27.0-33.0); Mean Corpuscular Volume 94.1 fL (80.0-98.0); Mean Platelet Volume 11.2 fL (9.4-12.3); Monocytes Absolute Auto 0.7 X10*3/uL (0.1-1.2); Monocytes Percent Auto 9.3 % (2-11); Neutrophils Absolute Auto 4.7 x10*3/uL (2.0-8.3); Neutrophils Percent Auto 61.4 % (45-73); Platelet Count 189 X10*3/uL (160-400); Red Blood Count 4.27 X10*6/uL (4.20-5.50); Red Cell Distribution Width 12.8 % (11.0-16.0); White Blood Count 7.7 X10*3/uL (4.8-10.8)
[2023-05-18 16:40] LABS: Alanine Aminotransferase 14 U/L (0-31); Albumin Level 4.1 g/dL (3.5-5.0); Alkaline Phosphatase 85 U/L (39-117); Anion Gap 12 (12-20); Aspartate Amino Transferase 16 U/L (5-31); Bilirubin Total 0.3 mg/dL (0.0-1.0); Blood Urea Nitrogen 20 mg/dL (9-16); C Reactive Protein < 0.10 mg/dL (< or = 0.50); Calcium 9.4 mg/dL (8.4-10.2); Carbon Dioxide 27 mmol/L (22-29); Chloride 110 mmol/L (96-108); Estimated Glomerular Filt Rate > 60; Glucose Random 95 mg/dL (60-115); Potassium 4.3 mmol/L (3.3-5.1); Sodium 145 mmol/L (135-145); Total Protein 7.8 g/dL (6.5-8.0)
[2023-05-18 17:17] LABS: Erythrocyte Sedimentation Rate 18 MM/HR (0-20)
[2023-05-19 03:55] LABS: HBS Num1 0.18 mIU/mL (0-7.99); HBc Num1 0.27 S/CO (0.00-0.79); HBsAGNum1 0.44 S/CO (0.00-0.99); Hepatitis A Antibody IgM 0.32 Index (0-0.79); Hepatitis B Core Antibody Nonreactive (Nonreactive); Hepatitis B Surface Antigen Negative (Negative); ~Hepatitis A Antibody IgM Nonreactive (Nonreactive); ~Hepatitis B Surface Antibody NONREACTIVE (Nonreactive); ~Hepatitis C Antibody Nonreactive (Nonreactive)
[2023-05-21 11:53] LABS: Prot Elec - Albumin 4.1 g/dL (3.8-4.8); Prot Elec - Alpha1 0.3 g/dL (0.2-0.3); Prot Elec - Alpha2 0.8 g/dL (0.5-0.9); Prot Elec - Beta 1 0.5 g/dL (0.4-0.6); Prot Elec - Beta 2 0.6 g/dL (0.2-0.5); Prot Elec - Gamma 1.5 g/dL (0.8-1.7); Prot Elec - Total Protein 7.7 g/dL (6.1-8.1)
[2023-05-21 20:58] LABS: TS Negative Control Passed; TS Panel A 5; TS Panel B 20; TS Positive Control Passed; TSpotTB Positive (Negative)
== END 2023-05-18 14:17 | disposition home or self-care (01) ==
LOC: HO.LAB 14:16
PROVIDERS: PCP Internal Medicine; Visit Provider Student in an Organized Health Care Education/Training Program
DX: Z11.7 Encounter for testing for latent tuberculosis infection (principal); Z11.59 Encounter for screening for other viral diseases; M06.00 Rheumatoid arthritis without rheumatoid factor, unspecified site; M79.7 Fibromyalgia; Z72.89 Other problems related to lifestyle
CPT/HCPCS: 36415; 80053; 84165; 85025; 85652; 86140; 86481; 86704; 86706; 86709; 86803; 87340; 99212

== ENCOUNTER 2023-05-18 14:16 | Outpatient (AMB) | payer OTHER, SELFPAY ==
--- NOTE | 2023-05-18 14:13 | MHC.OFFVIS ---
Intake Vital Signs 05/18/23 14:18 Height 5 ft Weight 163 lb 12.855 oz BMI 32.0 BP 128/72 Blood Pressure Location Rt brachial Position Sitting Pulse 79 Pulse Source Pulse Oximeter Temp 98.2 F Temp Source Skin Pulse Oximetry (%) 95 Oxygen Delivery Method Room Air Intake Visit Reasons: rhuematoid arthritis Intake Note: Here for RA follow up Pain management- right hip injection Escort Car Driver Required: Yes Escort Car Driver Language: Criminal Justice Department Chair Name: Idalmis [id number] Information Interpreted: clinical only Allergies No Known Allergies [No Known Allergies*] Allergy (Verified 05/18/23 14:21) Medication List - Last Reconciled 05/18/23 by Guillermo Lakhani MD carbamazepine 400 mg PO BID etanercept (Enbrel SureClick) 50 mg subcut QWEEK hydroxychloroquine 300 mg (1.5 x 200 mg) PO DAILY pregabalin 1 cap PO BID pregabalin 25 mg PO BID triamcinolone acetonide 0.1% 1 appl topical BID 10 days HPI HPI Comments History of Present Illness Details This is a 67-year-old female with a past medical history of seronegative rheumatoid arthritis who presents for follow-up. She was last seen by Charley Pugh 01/28. Patient states that she has been having pain and stiffness in her knuckles and toes. This has been ongoing for a long period of time. She is compliant with Enbrel and hydroxychloroquine. She mentioned that she was diagnosed with rheumatoid arthritis in [place] many years ago and she was on multiple medicines. She stated that in the [place] was taken off multiple medications one by one. She states that she was on methotrexate at some point but does not recall why it was stopped. Has never been on Humira. [facility] Medical History Autoimmune urticaria Cervical spondylosis without myelopathy Fibromyalgia Gastroesophageal reflux disease Hiatal hernia Impaired fasting glucose Insomnia Kidney stone on left side Loose right total knee arthroplasty Low back pain at multiple sites Lumbago with sciatica, left side Lumbago with sciatica, right side Morbid obesity due to excess calories Nephrolithiasis Osteoarthritis Recurrent kidney stones Renal calculi Seronegative rheumatoid arthritis Shoulder pain, right Sleep apnea Splenic artery aneurysm Tailor's bunion of left foot Trigeminal neuralgia of right side of face Varices of other sites Surgical History History of arthroscopy of right shoulder History of bunionectomy of left great toe History of colonoscopy History of cranioplasty History of esophagogastroduodenoscopy (EGD) History of laparoscopic cholecystectomy History of shoulder surgery Status post laser lithotripsy of ureteral calculus Status post right knee replacement Family History Father Emphysema of lung Mother Hypertension Maternal Grandmother No problems noted. Maternal Grandfather No problems noted. Paternal Grandmother No problems noted. Paternal Grandfather No problems noted. Maternal Aunt Diabetes Sister No problems noted. Son No problems noted. Daughter No problems noted. Social History Household Members: Spouse and Other Household Members Other:: mother,daughter Housing: House Are you a primary long term acute care registered nurse to a significant other at home: No Do you presently have visiting nurse or other home services: Yes ([employer]) Alcohol intake: never Patient Tobacco Use Status: Never used Tobacco e-Cigarette/Vaping Use: Never Used service: No Current occupational status: unemployed Current occupation: rt handed Cognitive needs: No Hearing needs: No Vision needs: No Review of Systems Musc Reports arthralgias, Reports joint swelling and Reports stiffness Physical Exam Vital Signs: Last Vital Signs Temp 98.2 F 05/18/23 14:18 Pulse 79 05/18/23 14:18 BP 128/72 05/18/23 14:18 Pulse Ox 95 05/18/23 14:18 Oxygen Delivery Method Room Air 05/18/23 14:18 BMI result Body Mass Index 32.0 Const General: cooperative, healthy appearing and comfortable Nutritional Appearance: obese Orientation/consciousness: patient oriented x3 Limitations: no limitations HEENT Head: Yes normocephalic and Yes atraumatic Mouth: moist mucous membranes Resp Effort & Inspection: normal respiratory effort and able to speak in complete sentences Neuro General: patient oriented x3 Extrem Other: Bilateral diffuse MCP swelling and tenderness Multiple swollen and tender PIPis bilaterally Right 2nd MTP tenderness Assessment & Plan Assessment & Plan (1) Seronegative rheumatoid arthritis: Comment: Seronegative RA diagnosed in [place]. [facility] 2007 - has been on Plaquenil 200 mg BID and Enbrel weekly since then. MTX dates unknown. Code(s): M06.00 - Rheumatoid arthritis without rheumatoid factor, unspecified site Plan: This is a 67-year-old female with seronegative RA returns for follow-up. On exam patient has multiple swollen and tender MCPs and PIPs, and MTPs. Continues to have 1 hour of morning stiffness. Will need to change DMARDs. Discontinue Enbrel. Will start prior authorization for Humira. Continue hydroxychloroquine. Labs before next visit in 3 month (2) Fibromyalgia: Code(s): M79.7 - Fibromyalgia Plan: Continue Lyrica as prescribed. Encouraged patient to incorporate light daily activity. Plan I spent 30 minutes reviewing patient's chart, evaluating patient, ordering diagnostic workup, counseling patient and documenting in the chart Orders: Orders Comprehensive Met. Panel 3 Months M06.9 - Rheumatoid arthritis, unspecified C Reactive Protein 3 Months M06.9 - Rheumatoid arthritis, unspecified Complete Blood Count Auto Diff 3 Months M06.9 - Rheumatoid arthritis, unspecified Erythrocyte Sedimentation Rate 3 Months M06.9 - Rheumatoid arthritis, unspecified Comprehensive Met. Panel Today M06.9 - Rheumatoid arthritis, unspecified C Reactive Protein Today M06.9 - Rheumatoid arthritis, unspecified Complete Blood Count Auto Diff Today M06.9 - Rheumatoid arthritis, unspecified Erythrocyte Sedimentation Rate Today M06.9 - Rheumatoid arthritis, unspecified Protein Electrophoresis, Serum Today M06.9 - Rheumatoid arthritis, unspecified Hepatitis A,B,C Profile Today Z11.59 - Encounter for screening for other viral diseases T Spot TB Today Z11.7 - Encounter for testing for latent tuberculosis infection Medications: Discontinued hydroxychloroquine 300 mg (1.5 x 200 mg) PO DAILY 45 tabs 3RF etanercept 50 mg subcut QWEEK 4 mL 2RF Coding Level of Care Code Est Pt Level 4 (50102) Diagnoses Seronegative rheumatoid arthritis M06.00 Fibromyalgia M79.7
[2023-05-18 14:18] VITALS: BP 128/72; PULSE 79; TEMP 36.8; O2SAT 95; BMI 32.0
== END 2023-05-18 14:50 | disposition home or self-care (01) ==
PROVIDERS: PCP Internal Medicine; Visit Provider Student in an Organized Health Care Education/Training Program
DX: M06.00 Rheumatoid arthritis without rheumatoid factor, unspecified site (principal); M79.7 Fibromyalgia
CPT/HCPCS: 99214

== ENCOUNTER 2023-05-23 15:40 | Outpatient (REF) | payer OTHER, SELFPAY ==
--- NOTE | ~2023-05-23 | XR_ITS ---
EXAMINATION: XR CHEST XR KUB CLINICAL INFORMATION: Chest radiograph requested for testing of latent tuberculosis infection. Abdomen radiograph requested for calculus of kidney. COMPARISON: Abdomen CT from 02/01/2023. Chest CT from 06/16/2019. TECHNIQUE: Chest, PA and lateral views Abdomen, AP view FINDINGS: CHEST: Lungs are well-inflated and clear. No pulmonary nodule, interstitial opacity or pleural effusion. Cardiac silhouette is normal in size. The hilar contours are normal. No radiographic evidence of hilar or mediastinal lymphadenopathy. Moderate discovertebral degenerative change of thoracic spine. ABDOMEN: Cholecystectomy clips in the right upper abdomen. Chronic rim calcified splenic artery aneurysm of approximately 1.3 cm size is seen in the left upper quadrant. Bowel gas pattern is normal. No evidence of renal or bladder calculi. Mild levocurvature of mildly degenerated lumbar spine. Bone island superior to left acetabulum. No suspicious osseous lesion. Mild osteoarthrosis of the hips. XR/XR KUB IMPRESSION: * No radiographic evidence of tuberculosis. * No evidence of renal stones.
--- NOTE | ~2023-05-23 | XR_ITS ---
EXAMINATION: XR CHEST XR KUB CLINICAL INFORMATION: Chest radiograph requested for testing of latent tuberculosis infection. Abdomen radiograph requested for calculus of kidney. COMPARISON: Abdomen CT from 02/01/2023. Chest CT from 06/16/2019. TECHNIQUE: Chest, PA and lateral views Abdomen, AP view FINDINGS: CHEST: Lungs are well-inflated and clear. No pulmonary nodule, interstitial opacity or pleural effusion. Cardiac silhouette is normal in size. The hilar contours are normal. No radiographic evidence of hilar or mediastinal lymphadenopathy. Moderate discovertebral degenerative change of thoracic spine. ABDOMEN: Cholecystectomy clips in the right upper abdomen. Chronic rim calcified splenic artery aneurysm of approximately 1.3 cm size is seen in the left upper quadrant. Bowel gas pattern is normal. No evidence of renal or bladder calculi. Mild levocurvature of mildly degenerated lumbar spine. Bone island superior to left acetabulum. No suspicious osseous lesion. Mild osteoarthrosis of the hips. XR/XR chest 2V IMPRESSION: * No radiographic evidence of tuberculosis. * No evidence of renal stones.
[2023-05-25 12:32] LABS: TS Negative Control Passed; TS Panel A 1; TS Panel B 4; TS Positive Control Passed; TSpotTB Negative (Negative)
== END 2023-05-23 15:41 | disposition home or self-care (01) ==
LOC: HO.LAB 15:40
PROVIDERS: PCP Internal Medicine; Visit Provider Student in an Organized Health Care Education/Training Program
DX: Z11.7 Encounter for testing for latent tuberculosis infection (principal); N20.0 Calculus of kidney
CPT/HCPCS: 36415; 71046; 74018; 86481

== ENCOUNTER 2023-05-28 09:22 | Outpatient (AMB) | payer OTHER, SELFPAY ==
[2023-05-28 09:48] VITALS: BP 126/70; PULSE 78; O2SAT 96; BMI 32.3
--- NOTE | 2023-05-28 09:48 | A.OFFPC_ITS ---
Vital Signs 05/28/23 09:48 Height 5 ft Weight 165 lb 4 oz BMI 32.3 BP 126/70 Blood Pressure Location Lt brachial Position Sitting Pulse 78 Pulse Source Pulse Oximeter Pulse Oximetry (%) 96 Oxygen Delivery Method Room Air Intake Visit Reasons: PE Intake Note: Pt is here today for her PE Allergies No Known Allergies [No Known Allergies*] Allergy (Verified 07/12/23 13:52) Medication List - Last Reconciled 05/28/23 by Lakshmi Rouse MD adalimumab (Humira(CF)) inject one - 40 mg/0.4 mL syringe every 2 weeks subcut carbamazepine 400 mg PO BID hydroxychloroquine 300 mg (1.5 x 200 mg) PO DAILY pregabalin 1 cap PO BID pregabalin 25 mg PO BID triamcinolone acetonide 0.1% 1 appl topical BID 10 days Tobacco use date assessed: 05/28/23 Fall risk assessment: No Falls in past year Last assessed Fall Risk: 05/28/23 Dental Screening Dental Screen Date: 05/28/23 Did you have a dental visit in the last 12 months?: No Did you have a dental problem in the last 6 months where you did not have access to dental care?: No Was dental information given to patient?: No HPI PE HPI Details 67-year-old lady here today for physical exam. She has rheumatoid arthritis, fibromyalgia and osteoarthritis, currently being followed by Rheumatology and prescribed Humira, which she has not yet started taking. Currently being seen by pain management for her chronic low back pain, and has had bilateral knee replacement . She has trigeminal neuralgia and obstructive sleep apnea currently on IVAPS, followed at [facility] sleep clinic. [facility] Medical History Positional lightheadedness Lumbago with sciatica, right side Recurrent kidney stones Sleep apnea Renal calculi Splenic artery aneurysm Shoulder pain, right Low back pain at multiple sites Varices of other sites Kidney stone on left side Lumbago with sciatica, left side Trigeminal neuralgia of right side of face Seronegative rheumatoid arthritis Nephrolithiasis Loose right total knee arthroplasty Gastroesophageal reflux disease Hiatal hernia Tailor's bunion of left foot Fibromyalgia Osteoarthritis Impaired fasting glucose Insomnia Cervical spondylosis without myelopathy Autoimmune urticaria Morbid obesity due to excess calories Surgical History History of esophagogastroduodenoscopy (EGD) History of colonoscopy History of arthroscopy of right shoulder History of laparoscopic cholecystectomy Status post laser lithotripsy of ureteral calculus History of bunionectomy of left great toe History of cranioplasty History of shoulder surgery Status post right knee replacement Family History Father Emphysema of lung Mother Hypertension Maternal Grandmother No problems noted. Maternal Grandfather No problems noted. Paternal Grandmother No problems noted. Paternal Grandfather No problems noted. Maternal Aunt Diabetes Sister No problems noted. Son No problems noted. Daughter No problems noted. 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 How often do you have a drink containing alcohol?: Never 3. How often do you have six or more drinks on one occasion?: Never Total Score: 0 Score Reviewed/Action Taken: Yes JOSÉ MANUEL-7 AMB Questionnaire JOSÉ MANUEL-7 Date JOSÉ MANUEL - 7 assessed: 10/25/21 Source: Developed by Drs. Raza Nova, Kassandra Munoz, Steven Velasco and colleagues, with an educational nyla from [employer]. Review of Systems Const Denies headache(s) and Denies weakness Eyes Denies change in vision ENT Denies dizziness, Denies headache(s), Denies nasal congestion and Denies nasal discharge Card Denies chest pain, Denies lightheadedness, Denies palpitations and Denies dyspnea Resp Denies chest congestion, Denies cough and Denies dyspnea GI Denies abdominal pain and Denies change in bowel habits Denies urinary frequency, Denies dysuria and Denies urinary urgency Musc Reports arthralgias and Reports stiffness Skin/Breast Denies lesions Neuro Denies dizziness, Denies headache(s) and Denies weakness Psych Reports no additional complaints Endo Denies palpitations Cole/Lymph Denies easy bleeding and Denies easy bruising Aller/Immun Reports no additional complaints Physical exam (Primary Care) Vital Signs: Last Vital Signs Pulse 78 05/28/23 09:48 BP 126/70 05/28/23 09:48 Pulse Ox 96 05/28/23 09:48 Oxygen Delivery Method Room Air 05/28/23 09:48 BMI result Body Mass Index 32.3 Tobacco/Smoking Status: Tobacco use Status Tobacco use date assessed 05/28/23 05/28/23 09:52 Patient Tobacco Use Status Never used Tobacco 05/28/23 09:52 e-Cigarette/Vaping Use Never Used 05/28/23 09:52 Thrive Assessment: Date of Thrive Assessment Date Thrive assessed 10/25/21 05/28/23 09:52 Const General: cooperative, comfortable, no acute distress, alert and awake Orientation/consciousness: patient oriented x3 HENMT General nose exam: Normal external nose present and No nasal discharge present Face and sinus: Yes face symmetric Mouth: Normal oral and palatal mucosa present, tongue normal, oropharynx normal and moist mucous membranes Eyes General: appearance normal, both eyes and all related structures Pupils: Equal, round and reactive pupils present Neck Neck: Yes full ROM, Yes no lymphadenopathy and Yes supple Chest Breast/axilla palpation: normal palpation of the breasts Resp Effort & Inspection: normal respiratory effort and able to speak in complete sentences Auscultation: clear to auscultation bilaterally Cardio Rate: regular rate Rhythm: regular rhythm Heart sounds: S1 normal heart sound present and S2 normal heart sound present GI Inspection: Yes normal to inspection Palpation (GI): Soft to palpation, nontender and no masses Auscultation: normal bowel sounds Back/Spine/Pelvis Thoracic/Lumbar Spine: paraspinal muscle tenderness bilaterally in the mid lumbar and in the lower lumbar Skin General skin exam: no rashes or lesions noted Neuro General: patient oriented x3, moves all extremities, Normal light touch and pain sensation and no focal motor deficits Cranial nerves: Yes Equal, round and reactive pupils present Cognition (Neuro): normal cognition Extrem Other: Tenderness on palpation over m medial and lateral aspect of left knee joint, positive crepitus noted General: Yes no joint enlargement and Yes no pedal edema Psych Appearance: grossly normal and well kempt Mental Status: mental status grossly normal Speech and movement: Normal speech and movement present Affect: normal affect Attitude: cooperative Thought process: Normal thought process present Thought content: Normal thought content present Immunizations pneumoc 20-girish conj-dip cr(PF) 0.5 mL IM syringe Performing Provider: Lakshmi Rouse MD Performing Location: [facility] Administered by: Tom Alcantar CMA on 05/28/23 10:52 Dose Route Admin Location Dispensed Lot Number Expiration Date NDC Glove Machine Operator 0.5 mL IM Right Deltoid 0.5 mL [id number] 08/07/24 1169-3913-61 [employer] VIS Given Date VIS Provided VIS Publication Date 05/28/23 Single Vaccine 21 Eligibility Eligibility Date Funding Source Not [facility] Eligible 05/28/23 Private Results Reviewed Results Reviewed: ENTERED: 05/18/[address]: Lakshmi Rouse MD ORDERED: CMP, C Reactive Prot Test Result Flag Reference Site Sodium 145 135-145 mmol/L Potassium 4.3 3.3-5.1 mmol/L CL 110 H 96-108 mmol/L CO2 27 22-29 mmol/L Gap 12 12-20 BUN 20 H 9-16 mg/dL Creat 0.86 0.5-1.4 mg/dL EGFR > 60 NOTE: For -[place] individuals, multiply the result by 1.210. Chronic Kidney Disease: Estimated GFR < 60 mL/min/1.73m2 Severe Kidney Disease: Estimated GFR < 15 mL/min/1.73m2 Glucose, Random 95 60-115 mg/dL CA 9.4 # 8.4-10.2 mg/dL Total Bili 0.3 0.0-1.0 mg/dL AST (GOT) 16 5-31 U/L ALT (GPT) 14 0-31 U/L CRP < 0.10 < or = 0.50 mg/dL Protein, Total 7.8 6.5-8.0 g/dL Alb 4.1 3.5-5.0 g/dL Alk Phos 85 39-117 U/L ENTERED: 05/18/23-[address]: Lakshmi Rouse MD ORDERED: CBC Auto Diff Test Result Flag Reference Site WBC 7.7 4.8-10.8 X10*3/uL RBC 4.27 4.20-5.50 X10*6/uL HGB 13.4 12.0-16.0 g/dl HCT 40.2 37.0-47.0 % MCV 94.1 80.0-98.0 fL MCH 31.4 27.0-33.0 pg MCHC 33.3 31.0-35.0 g/dl RDW 12.8 11.0-16.0 % PLT 189 160-400 X10*3/uL Assessment and Plan Assessment & Plan (1) Annual visit for general adult medical examination with abnormal findings: Code(s): Z00.01 - Encounter for general adult medical examination with abnormal findings Plan: Labs ordered by her insurance verification specialist reviewed, repeat fasting lipid panel ordered. Recommended dental visit every 6 months and regular eye exams, at least every 2 years. Take adequate calcium in diet and vitamin-D 3 at 2000 IU per cap once a day, in addition to weight-bearing exercises to help maintain good muscle tone and weight control. Instructed to do self-breast exam, and continued to get yearly mammogram, due again September 2023. It with her bone density scan done in 2021 which showed normal bone density. It with her screening colonoscopy. A coccal vaccine given today, reminded to get yearly flu shot and get her updated COVID vaccine once it is out (2) Osteoarthritis: Code(s): M19.90 - Unspecified osteoarthritis, unspecified site Qualifiers: Osteoarthritis location: multiple joints Osteoarthritis type: primary Qualified Code(s): M15.9 - Polyosteoarthritis, unspecified Plan: Currently followed by Rheumatology (3) Rheumatoid arthritis: Code(s): M06.9 - Rheumatoid arthritis, unspecified Qualifiers: Rheumatoid arthritis location: multiple sites Rheumatoid factor presence: without rheumatoid factor Qualified Code(s): M06.09 - Rheumatoid arthritis without rheumatoid factor, multiple sites Plan: Followed by Rheumatology currently Humira and hydroxychloroquine (4) Positional lightheadedness: Code(s): R42 - Dizziness and giddiness Plan: Referred to physical therapy for evaluation and treatment for possible benign positional vertigo (5) Need for pneumococcal 20-valent conjugate vaccination: Code(s): Z23 - Encounter for immunization Plan: Prevnar 20 given today (6) Fibromyalgia: Code(s): M79.7 - Fibromyalgia Plan: Followed by Rheumatology, currently on pregabalin (7) Trigeminal neuralgia of right side of face: Code(s): G50.0 - Trigeminal neuralgia Plan: On carbamazepine 400 mg 1 tablet twice a day Orders: Orders Lipid Panel 05/28/23 Z00.01 - Encounter for general adult medical examination with abnormal findings, Z13.220 - Encounter for screening for lipoid disorders, E66.9 - Obesity, unspecified Pneumococcal 20 Immunization 05/28/23 Z23 - Encounter for immunization PT Evaluation and Treatment 05/28/23 H81.10 - Benign paroxysmal vertigo, unspecified ear Coding Level of Care Code Est Pt Prev Care >65y(41390) Diagnoses Annual visit for general adult medical examination with abnormal findings Z00.01 Primary osteoarthritis involving multiple joints M15.9 Osteoarthritis location: multiple joints Osteoarthritis type: primary Rheumatoid arthritis of multiple sites with negative rheumatoid factor M06.09 Rheumatoid arthritis location: multiple sites Rheumatoid factor presence: without rheumatoid factor Positional lightheadedness R42 Need for pneumococcal 20-valent conjugate vaccination Z23 Fibromyalgia M79.7 Trigeminal neuralgia of right side of face G50.0
== END 2023-05-28 10:50 | disposition home or self-care (01) ==
PROVIDERS: Visit Provider Internal Medicine
DX: Z00.00 Encounter for general adult medical examination without abnormal findings (principal); M15.9 Polyosteoarthritis, unspecified; M06.09 Rheumatoid arthritis without rheumatoid factor, multiple sites; R42 Dizziness and giddiness; Z23 Encounter for immunization; M79.7 Fibromyalgia; G50.0 Trigeminal neuralgia
CPT/HCPCS: 90471; 90677; 99397

== ENCOUNTER 2023-05-28 13:00 | Outpatient (RCR) | payer OTHER, SELFPAY | END 2023-06-27 14:11 | disposition home or self-care (01) | LOC: HO.PT 13:00 | PROVIDERS: PCP Internal Medicine; Visit Provider Orthopaedic Surgery | DX: Z96.652 Presence of left artificial knee joint (principal) | CPT/HCPCS: 97110; 97161 ==

== ENCOUNTER 2023-06-07 08:55 | Outpatient (REF) | payer OTHER, SELFPAY ==
[2023-06-07 09:12] LABS: MANUAL DIFF FLAG NO
[2023-06-07 09:51] LABS: Basophils Absolute Auto 0.1 X10*3/uL (0.0-0.2); Eosinophils Absolute Auto 0.1 X10*3/uL (0.0-0.4); Eosinophils Percent Auto 1.2 % (0-4); Hemoglobin 12.2 g/dl (12.0-16.0); Lymphocytes Absolute Auto 2.5 X10*3/uL (1.2-4.9); Lymphocytes Percent Auto 49.5 % (20-40); Mean Corpuscular Hemoglobin 31.8 pg (27.0-33.0); Mean Corpuscular Volume 96.4 fL (80.0-98.0); Mean Platelet Volume 10.4 fL (9.4-12.3); Monocytes Absolute Auto 0.4 X10*3/uL (0.1-1.2); Monocytes Percent Auto 7.4 % (2-11); Neutrophils Absolute Auto 2.1 x10*3/uL (2.0-8.3); Neutrophils Percent Auto 40.9 % (45-73); Platelet Count 143 X10*3/uL (160-400); Red Blood Count 3.84 X10*6/uL (4.20-5.50); Red Cell Distribution Width 13.1 % (11.0-16.0); White Blood Count 5.1 X10*3/uL (4.8-10.8)
[2023-06-07 10:37] LABS: Erythrocyte Sedimentation Rate 16 MM/HR (0-20)
[2023-06-07 10:45] LABS: Alanine Aminotransferase 22 U/L (0-31); Albumin Level 3.8 g/dL (3.5-5.0); Alkaline Phosphatase 74 U/L (39-117); Anion Gap 11 (12-20); Aspartate Amino Transferase 20 U/L (5-31); Bilirubin Total 0.5 mg/dL (0.0-1.0); Blood Urea Nitrogen 14 mg/dL (9-16); C Reactive Protein < 0.04 mg/dL (< or = 0.50); Carbon Dioxide 26 mmol/L (22-29); Chloride 109 mmol/L (96-108); Cholesterol 163 mg/dL (<200); Estimated Glomerular Filt Rate > 60; Glucose Random 93 mg/dL (60-115); HDL Cholesterol 60 mg/dL (>40); LDL Cholesterol Calculated 85 mg/dL (<100); Potassium 4.1 mmol/L (3.3-5.1); Sodium 142 mmol/L (135-145); Total Protein 7.1 g/dL (6.5-8.0); Triglycerides 91 mg/dL (<150)
== END 2023-06-07 08:56 | disposition home or self-care (01) ==
LOC: HO.LAB 08:55
PROVIDERS: Student in an Organized Health Care Education/Training Program; PCP Internal Medicine; Visit Provider Internal Medicine
DX: Z00.01 Encounter for general adult medical examination with abnormal findings (principal); Z13.220 Encounter for screening for lipoid disorders; M06.9 Rheumatoid arthritis, unspecified; E66.9 Obesity, unspecified
CPT/HCPCS: 36415; 80053; 80061; 85025; 85652; 86140

== ENCOUNTER 2023-06-15 10:38 | Outpatient (AMB) | payer OTHER, SELFPAY ==
[2023-06-15 10:45] VITALS: BP 124/74; PULSE 68; RESP 14; O2SAT 96; BMI 32.2
--- NOTE | 2023-06-15 10:45 | A.OFFVIS_ITS ---
Intake Vital Signs 06/15/23 10:45 Height 5 ft Weight 165 lb BMI 32.2 BP 124/74 Blood Pressure Location Lt brachial Position Sitting Respiration 14 Pulse 68 Pulse Source Pulse Oximeter Pulse Oximetry (%) 96 Oxygen Delivery Method Room Air Intake Visit Reasons: RIGHT INTRA-ARTICULAR HIP INJECTION Doctor Of Veterinary Medicine Required: Yes Doctor Of Veterinary Medicine Name: Prefers to translate Allergies No Known Allergies [No Known Allergies*] Allergy (Verified 06/21/23 10:30) Medication List - Last Reconciled 06/15/23 by Chloe Vaughn LPN adalimumab (Humira(CF)) inject one - 40 mg/0.4 mL syringe every 2 weeks subcut carbamazepine 400 mg PO BID hydroxychloroquine 300 mg (1.5 x 200 mg) PO DAILY pregabalin 1 cap PO BID pregabalin 25 mg PO BID triamcinolone acetonide 0.1% 1 appl topical BID 10 days HPI RIGHT INTRA-ARTICULAR HIP INJECTION HPI Details 67-year-old female who presents today to the office for a follow-up status post right intraarticular hip injection. The patient reports 90% relief following the procedure. She reports feeling the same level of pain on the left side. She has a history of sciatica. She had bilateral knee replacements in the past. She reports knee pain. She underwent an x-ray of the knee. She had a fall and hit her hip region. She has been receiving cortisone injections every six months. Her last injection was prior to the vacation. She had an accident in August 29. She is amenable to receive knee injections today. Past procedure: 05/16/23: Right hip intra-articular ster oid injection: 90% relief, ongoing. [facility] Medical History Positional lightheadedness Lumbago with sciatica, right side Recurrent kidney stones Sleep apnea Renal calculi Splenic artery aneurysm Shoulder pain, right Low back pain at multiple sites Varices of other sites Kidney stone on left side Lumbago with sciatica, left side Trigeminal neuralgia of right side of face Seronegative rheumatoid arthritis Nephrolithiasis Loose right total knee arthroplasty Gastroesophageal reflux disease Hiatal hernia Tailor's bunion of left foot Fibromyalgia Osteoarthritis Impaired fasting glucose Insomnia Cervical spondylosis without myelopathy Autoimmune urticaria Morbid obesity due to excess calories Surgical History History of esophagogastroduodenoscopy (EGD) History of colonoscopy History of arthroscopy of right shoulder History of laparoscopic cholecystectomy Status post laser lithotripsy of ureteral calculus History of bunionectomy of left great toe History of cranioplasty History of shoulder surgery Status post right knee replacement Family History Father Emphysema of lung Mother Hypertension Maternal Grandmother No problems noted. Maternal Grandfather No problems noted. Paternal Grandmother No problems noted. Paternal Grandfather No problems noted. Maternal Aunt Diabetes Sister No problems noted. Son No problems noted. Daughter No problems noted. 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 Alert and oriented. Mood and affect appropriate. Follows and participates in conversation appropriately. Respiratory effort is unlabored. Able to transition from sit to stand unassisted. Ambulates with bilaterally normal heel strike and toe off. Office Procedures Nerve Block Details: Bilateral infrapatellar saphenous nerve blocks After obtaining written consent, pre-procedure blood pressure and heart rate were stable and recorded in the nursing record. The patient was placed in the sitting position. The area overlying the peripheral nerve was widely prepped with chloraprep, allowed to dry and sterilely draped. Using manual palpation the tibial plateau was palpated and the needle was advanced to the vicinity of the infrapatellar saphenous nerve. After negative as piration for heme and synovial fluid, 1 cc of bupivacaine 0.5% was injected. The needles were removed, skin cleansed and a sterile bandage was applied. The patient tolerated the procedure well and no complications were encountered. Following the procedure the patient's vital signs were stable. The patient was discharged home in good condition with post-procedural instructions. Time Out: Immediately prior to the procedure, the following was verbally confirmed that there is a signed consent form and that the correct patient, planned procedure, site and side are consistent with documentation and that necessary equipment and/or blood products are available prior to the start of the case. Complications: none EBL: <5 cc. 30186 - Geniculate (knee) Procedure code (CPT) selection complete Results Reviewed Results Reviewed: No imaging is available for review. Assessment & Plan Assessment & Plan (1) Pain of right heel: Code(s): M79.671 - Pain in right foot (2) Osteoarthritis of left knee: Code(s): M17.12 - Unilateral primary osteoarthritis, left knee (3) Status post right knee replacement: Comment: ~2018. Her right knee is bothering her more than her left with pain with stairs and pain wiht standing from a seated position. The patella component is likely causal. We will treat her right hip with injection first and then evaluate her knee again. Code(s): Z96.651 - Presence of right artificial knee joint Plan Discussed temporary lead placement vs. permanent nerve stimulator as possible terminal computer operator treatment options for knee pain. Patient is status post bilateral infrapatellar saphenous nerve blocks. Patient tolerated procedure well and was discharged home in stable condition with discharge instructions. All questions were answered. Ordered an x-ray of the right foot for further evaluation of the right foot pain. Scribed for Dr. Mart by Rafael Rojas, durable medical equipment technician, on 06/15/2023. I, Dr. Mart, have personally reviewed and agree with the information entered by the scribe. Orders: Orders XR foot RT 2V 06/18/23 M79.671 - Pain in right foot Coding Level of Care Code Est Pt Level 4 (14969) Diagnoses Pain of right heel M79.671 Osteoarthritis of left knee M17.12 Status post right knee replacement Z96.651 CPT Codes Nerve Block - Nerve Block 8: 80966 - Geniculate (knee) ([id number])
== END 2023-06-15 11:24 | disposition home or self-care (01) ==
PROVIDERS: PCP Internal Medicine; Visit Provider Internal Medicine
DX: M79.671 Pain in right foot (principal); M17.0 Bilateral primary osteoarthritis of knee; Z96.651 Presence of right artificial knee joint
CPT/HCPCS: 64450; 99214

== ENCOUNTER → 2023-06-15 10:38 | Outpatient (BNVA) | payer OTHER, SELFPAY | PROVIDERS: PCP Internal Medicine; Visit Provider Internal Medicine | DX: M17.12 Unilateral primary osteoarthritis, left knee (principal); M79.671 Pain in right foot; Z96.651 Presence of right artificial knee joint | CPT/HCPCS: 64450; 99212 ==

== ENCOUNTER 2023-06-18 08:55 | Outpatient (REF) | payer OTHER, SELFPAY ==
--- NOTE | ~2023-06-18 | XR_ITS ---
EXAMINATION: XR FOOT, RIGHT CLINICAL INFORMATION: Right foot pain. COMPARISON: Right foot radiographs dated 11/23/2021. TECHNIQUE: AP, lateral, and oblique views of the right foot. FINDINGS: No acute fracture or dislocation. Joint space narrowing with marginal osteophytes at the 1st metatarsophalangeal joint and hallux sesamoids, unchanged. Plantar and dorsal calcaneal spurs are redemonstrated. Dystrophic calcification associated with the distal Achilles tendon has slightly increased, likely indicating chronic tendinopathy. XR/XR foot RT 2V IMPRESSION: 1. [id number] degenerative arthritis at the 1st metatarsophalangeal joint and hallux sesamoids, unchanged. 2. Plantar and dorsal calcaneal spurs, unchanged. 3. Dystrophic calcification associated with the distal Achilles tendon has slightly increased, likely indicating chronic tendinopathy.
== END 2023-06-18 08:56 | disposition home or self-care (01) ==
LOC: HO.XRAY 08:55
PROVIDERS: PCP Internal Medicine; Visit Provider Internal Medicine
DX: M79.671 Pain in right foot (principal)
CPT/HCPCS: 73620

== ENCOUNTER 2023-06-21 09:16 | Outpatient (REF) | payer OTHER, SELFPAY ==
--- NOTE | ~2023-06-21 | XR_ITS ---
EXAMINATION: XR KNEE, LEFT XR KNEE AP STANDING CLINICAL INFORMATION: Pain. COMPARISON: Radiographs dated 03/19/2023. TECHNIQUE: Lateral and axial views of the left knee were obtained. AP bilateral standing view of the knees was obtained. FINDINGS: Prosthetic components of the bilateral total knee arthroplasties are appropriately aligned without periprosthetic fracture or abnormal lucency. No component migration. No left knee joint effusion is presently seen. XR/XR knee LT 2V IMPRESSION: Appropriate alignment of the bilateral total knee arthroplasties, without evidence of complications.
--- NOTE | ~2023-06-21 | XR_ITS ---
EXAMINATION: XR KNEE, LEFT XR KNEE AP STANDING CLINICAL INFORMATION: Pain. COMPARISON: Radiographs dated 03/19/2023. TECHNIQUE: Lateral and axial views of the left knee were obtained. AP bilateral standing view of the knees was obtained. FINDINGS: Prosthetic components of the bilateral total knee arthroplasties are appropriately aligned without periprosthetic fracture or abnormal lucency. No component migration. No left knee joint effusion is presently seen. XR/XR knee standing BI IMPRESSION: Appropriate alignment of the bilateral total knee arthroplasties, without evidence of complications.
== END 2023-06-21 09:17 | disposition home or self-care (01) ==
LOC: HO.HOSX 09:16
PROVIDERS: Visit Provider Orthopaedic Surgery
DX: M25.562 Pain in left knee (principal); Z96.651 Presence of right artificial knee joint
CPT/HCPCS: 73560; 73565; 99212

== ENCOUNTER 2023-06-21 10:07 | Outpatient (AMB) | payer OTHER, SELFPAY ==
[2023-06-21 10:27] VITALS: BMI 32.2
--- NOTE | 2023-06-21 10:27 | MHC.OFFVIS ---
Intake Vital Signs 06/21/23 10:27 Height 5 ft Weight 165 lb BMI 32.2 Intake Visit Reasons: OV - Left TKA 07/11/22 Intake Note: Day is a 67 year old female who presents today for a follow up of her left knee, s/p Left TKA 07/11/22. Allergies No Known Allergies [No Known Allergies*] Allergy (Verified 06/21/23 10:30) HPI OV - Left TKA 07/11/22 HPI Details Day is here for yearly follow up. She is doing well with no complaints. She does have periodic pain especially with stairs. [facility] Medical History Positional lightheadedness Lumbago with sciatica, right side Recurrent kidney stones Sleep apnea Renal calculi Splenic artery aneurysm Shoulder pain, right Low back pain at multiple sites Varices of other sites Kidney stone on left side Lumbago with sciatica, left side Trigeminal neuralgia of right side of face Seronegative rheumatoid arthritis Nephrolithiasis Loose right total knee arthroplasty Gastroesophageal reflux disease Hiatal hernia Tailor's bunion of left foot Fibromyalgia Osteoarthritis Impaired fasting glucose Insomnia Cervical spondylosis without myelopathy Autoimmune urticaria Morbid obesity due to excess calories Surgical History History of esophagogastroduodenoscopy (EGD) History of colonoscopy History of arthroscopy of right shoulder History of laparoscopic cholecystectomy Status post laser lithotripsy of ureteral calculus History of bunionectomy of left great toe History of cranioplasty History of shoulder surgery Status post right knee replacement Family History Father Emphysema of lung Mother Hypertension Maternal Grandmother No problems noted. Maternal Grandfather No problems noted. Paternal Grandmother No problems noted. Paternal Grandfather No problems noted. Maternal Aunt Diabetes Sister No problems noted. Son No problems noted. Daughter No problems noted. 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 Mild TTP lateral PF joint with no effusion. Full ROM Results Reviewed Results Reviewed: I personally reviewed relevant radiographs. Appropriate alignment of the bilateral total knee arthroplasties, without evidence of complications. Assessment & Plan Assessment & Plan (1) Status post right knee replacement: Code(s): Z96.651 - Presence of right artificial knee joint Plan: Stable and improved from prior. Continue activity as tolerated. Orders: Orders XR knee LT 2V 06/21/23 M25.569 - Pain in unspecified knee XR knee standing BI 06/21/23 M25.569 - Pain in unspecified knee Coding Level of Care Code Est Pt Level 3 (76210) Diagnoses Status post right knee replacement Z96.651
== END 2023-06-21 10:47 | disposition home or self-care (01) ==
PROVIDERS: PCP Internal Medicine; Visit Provider Orthopaedic Surgery
DX: Z47.89 Encounter for other orthopedic aftercare (principal); Z96.651 Presence of right artificial knee joint
CPT/HCPCS: 99213

== ENCOUNTER 2023-07-09 11:10 | Outpatient (AMB) | payer OTHER, SELFPAY ==
[2023-07-09 11:15] VITALS: BP 130/61; PULSE 84; RESP 14; O2SAT 95; BMI 32.2
--- NOTE | 2023-07-09 11:15 | A.OFFVIS_ITS ---
Intake Vital Signs 07/09/23 11:15 Height 5 ft Weight 165 lb BMI 32.2 BP 130/61 Blood Pressure Location Lt brachial Position Sitting Respiration 14 Pulse 84 Pulse Source Pulse Oximeter Pulse Oximetry (%) 95 Oxygen Delivery Method Room Air Intake Visit Reasons: FOLLOW UP FOR CONTINOUS KNEE PAIN Allergies No Known Allergies [No Known Allergies*] Allergy (Verified 07/09/23 11:17) HPI FOLLOW UP FOR CONTINOUS KNEE PAIN HPI Details 67-year-old female who presents today to the office for a follow-up for chronic knee pain. The patient reports more than 75% relief following the diagnostic infrapatellar saphenous nerve blocks for two days with significant improvement on the right side. She states that her left knee is worse than her right knee. The patient is amenable to proceed with temporary nerve stimulator trial for her pain. Past procedures: 06/15/23: Bilateral infrapatellar saphen ous nerve blocks: 75% relief for the diagnostic phase. 05/16/23: Right hip intra-articular ster oid injection: 90% relief, ongoing. [facility] Medical History Positional lightheadedness Lumbago with sciatica, right side Recurrent kidney stones Sleep apnea Renal calculi Splenic artery aneurysm Shoulder pain, right Low back pain at multiple sites Varices of other sites Kidney stone on left side Lumbago with sciatica, left side Trigeminal neuralgia of right side of face Seronegative rheumatoid arthritis Nephrolithiasis Loose right total knee arthroplasty Gastroesophageal reflux disease Hiatal hernia Tailor's bunion of left foot Fibromyalgia Osteoarthritis Impaired fasting glucose Insomnia Cervical spondylosis without myelopathy Autoimmune urticaria Morbid obesity due to excess calories Surgical History History of esophagogastroduodenoscopy (EGD) History of colonoscopy History of arthroscopy of right shoulder History of laparoscopic cholecystectomy Status post laser lithotripsy of ureteral calculus History of bunionectomy of left great toe History of cranioplasty History of shoulder surgery Status post right knee replacement Family History Father Emphysema of lung Mother Hypertension Maternal Grandmother No problems noted. Maternal Grandfather No problems noted. Paternal Grandmother No problems noted. Paternal Grandfather No problems noted. Maternal Aunt Diabetes Sister No problems noted. Son No problems noted. Daughter No problems noted. 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 Alert and oriented. Mood and affect appropriate. Follows and participates in conversation appropriately. Respiratory effort is unlabored. Able to transition from sit to stand unassisted. Ambulates with bilaterally normal heel strike and toe off. There is significant blue black discoloration overlying the left patella and knee and it is markedly more tender to palpation compared to the right knee. There is also increased keratoses are along the left midline knee incision compared to the right. Results Reviewed Results Reviewed: No imaging is available for review. Assessment & Plan Assessment & Plan (1) Chronic knee pain after total replacement of both knee joints: Comment: left worse than right Code(s): M25.561 - Pain in right knee; M25.562 - Pain in left knee; G89.28 - Other chronic postprocedural pain; Z96.653 - Presence of artificial knee joint, bilateral Plan Discussed temporary nerve stimulator vs. permanent nerve stimulators as a possible treatment option. If these are not helpful, we can consider a trial of DRG stimulation, especially on the left side given findings consistent with possible CRPS of the left knee area following prior TKA. Will schedule her for a left temporary saphenous nerve stimulator trial with Sprint device. Discussed the risks and benefits of the procedure with the patient in detail. All questions were answered. The patient is on board with the plan. A device brochure was provided to the patient. Justification for interventional therapy: ? Patient with average pain > 6/10 ? Patient has exhausted standard therapy including total knee replacement ? Diagnostic injection provided >75% relief Scribed for Dr. Mart by Rafael Rojas, medical chief technician, on 07/09/2023. I, Dr. Mart, have personally reviewed and agree with the information entered by the scribe. Coding Level of Care Code Est Pt Level 3 (61763) Diagnoses Chronic knee pain after total replacement of both knee joints M25.561; M25.562; G89.28; Z96.653
== END 2023-07-09 11:25 | disposition home or self-care (01) ==
PROVIDERS: PCP Internal Medicine; Visit Provider Internal Medicine
DX: M25.561 Pain in right knee (principal); M25.562 Pain in left knee; G89.28 Other chronic postprocedural pain; Z96.653 Presence of artificial knee joint, bilateral
CPT/HCPCS: 99213

== ENCOUNTER → 2023-07-09 11:10 | Outpatient (BNVA) | payer OTHER, SELFPAY | PROVIDERS: PCP Internal Medicine; Visit Provider Internal Medicine | DX: M25.561 Pain in right knee (principal); M25.562 Pain in left knee; G89.29 Other chronic pain; Z96.653 Presence of artificial knee joint, bilateral | CPT/HCPCS: 99212 ==

== ENCOUNTER 2023-07-12 11:37 | Outpatient (AMB) | payer OTHER, SELFPAY ==
--- NOTE | 2023-07-12 13:47 | MHC.OFFWIV ---
Intake Vital Signs 07/12/23 13:55 Weight 165 lb BP 122/70 Blood Pressure Location Lt brachial Position Sitting Pulse 84 Pulse Source Pulse Oximeter Temp 97.7 F Temp Source Oral Pulse Oximetry (%) 97 Oxygen Delivery Method Room Air Intake Visit Reasons: EP, Left leg redness,swelling [phone] Intake Note: PAtient here for left leg swelling she states it started off feeling very itchy on sunday and then it got swollen, red and warm to the touch. Patient Tobacco Use Status: Never used Tobacco Allergies No Known Allergies [No Known Allergies*] Allergy (Verified 07/12/23 13:52) HPI HPI Comments History of Present Illness Details The patient presents to urgent care for evaluation of left leg redness. She states that about 3 days ago she started developing redness over her left thigh which is itchy and warm to the touch. She does not report any recent rashes or insect stings or bites. No recent breaks to the skin. Patient denies fever chills nausea vomiting body aches She had a left knee replacement surgery 1 year ago. [facility] Medical History Positional lightheadedness Lumbago with sciatica, right side Recurrent kidney stones Sleep apnea Renal calculi Splenic artery aneurysm Shoulder pain, right Low back pain at multiple sites Varices of other sites Kidney stone on left side Lumbago with sciatica, left side Trigeminal neuralgia of right side of face Seronegative rheumatoid arthritis Nephrolithiasis Loose right total knee arthroplasty Gastroesophageal reflux disease Hiatal hernia Tailor's bunion of left foot Fibromyalgia Osteoarthritis Impaired fasting glucose Insomnia Cervical spondylosis without myelopathy Autoimmune urticaria Morbid obesity due to excess calories Surgical History History of esophagogastroduodenoscopy (EGD) History of colonoscopy History of arthroscopy of right shoulder History of laparoscopic cholecystectomy Status post laser lithotripsy of ureteral calculus History of bunionectomy of left great toe History of cranioplasty History of shoulder surgery Status post right knee replacement Family History Father Emphysema of lung Mother Hypertension Maternal Grandmother No problems noted. Maternal Grandfather No problems noted. Paternal Grandmother No problems noted. Paternal Grandfather No problems noted. Maternal Aunt Diabetes Sister No problems noted. Son No problems noted. Daughter No problems noted. 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) Alcohol intake: never Patient Tobacco Use Status: Never used Tobacco e-Cigarette/Vaping Use: Never Used service: No Current occupational status: unemployed Current occupation: rt handed Cognitive needs: No Hearing needs: No Vision needs: No Review of Systems Eyes Reports no additional complaints ENT Reports Normal hearing present and Denies dysphagia Card Denies dyspnea and Denies slow heart rate Resp Denies cough and Denies dyspnea GI Denies dysphagia and Denies heartburn Denies dysuria Musc Denies tingling Skin/Breast Reports lesions, Denies skin ulcer and Denies unusual bruising Neuro Reports Normal hearing present, Denies Sensory deficit (Neuro), Denies tingling and Denies paresthesias Physical Exam Vital Signs: Last Vital Signs Temp 97.7 F 07/12/23 13:55 Pulse 84 07/12/23 13:55 BP 122/70 07/12/23 13:55 Pulse Ox 97 07/12/23 13:55 Oxygen Delivery Method Room Air 07/12/23 13:55 Const General: healthy appearing and no acute distress Resp Effort & Inspection: normal respiratory effort and able to speak in complete sentences Skin Other: Left leg: Lower thigh and over the proximal knee area of erythema. Not indurated warm to the touch and slightly tender. No lesions or excoriations Neuro Cranial nerves: Yes Normal hearing present Sensory Exam: No Sensory deficit (Neuro) Assessment & Plan Assessment & Plan (1) Cellulitis: Code(s): L03.90 - Cellulitis, unspecified Plan Symptoms consistent with cellulitis. Will treat with antibiotics and recommend to return if symptoms worsen in any way. Medications: New cephalexin 500 mg PO QID 28 caps 0RF 7 days Coding Level of Care Code Est Pt Level 3 (14005) Diagnoses Cellulitis L03.90
[2023-07-12 13:55] VITALS: BP 122/70; PULSE 84; TEMP 36.5; O2SAT 97
== END 2023-07-12 14:42 | disposition home or self-care (01) ==
PROVIDERS: PCP Internal Medicine; Visit Provider Emergency Medicine
DX: L03.90 Cellulitis, unspecified (principal)
CPT/HCPCS: 99213

== ENCOUNTER 2023-08-03 10:23 | Outpatient (AMB) | payer OTHER, SELFPAY ==
[2023-08-03 10:34] VITALS: PULSE 79; RESP 12; O2SAT 94; BMI 32.8
--- NOTE | 2023-08-03 10:34 | MHC.OFFVIS ---
Intake Vital Signs 08/03/23 10:34 Height 5 ft Weight 168 lb BMI 32.8 Blood Pressure Location Rt brachial Position Sitting Respiration 12 Pulse 79 Pulse Source Pulse Oximeter Pulse Oximetry (%) 94 Oxygen Delivery Method Room Air Intake Visit Reasons: Increasing Pain/lvm Supportive Employment Case Manager Required: Yes Supportive Employment Case Manager Name: Kaley #[id number] Allergies No Known Allergies [No Known Allergies*] Allergy (Verified 08/03/23 10:35) Medication List - Last Reconciled 08/03/23 by Chloe Vaughn LPN adalimumab (Humira(CF)) inject one - 40 mg/0.4 mL syringe every 2 weeks subcut carbamazepine 400 mg PO BID hydroxychloroquine 300 mg (1.5 x 200 mg) PO DAILY pregabalin 1 cap PO BID pregabalin 25 mg PO BID triamcinolone acetonide 0.1% 1 appl topical BID 10 days HPI Increasing Pain/lvm HPI Details 67-year-old female who presents today to the office for an increasing pain. A certified instrument repair supervisor was present during the visit. She has a history of fibromyalgia and sciatica. She had bilateral knee replacements in the past. She reports pain in her right ankles around the Achilles tendon. She had an injury when a shopping cart hit her ankle about three months ago. She also reports right knee pain and underwent an x-ray of her knee recently. She has difficulty walking long distances. She has been receiving steroid injections every three months without any relief. Past procedures: 06/15/23: Bilateral infrapatellar saphenous nerve blocks: 75% relief for the diagnostic phase. 05/16/23: Right hip intra-articular steroid injection: 90% relief, ongoing. [facility] Medical History Positional lightheadedness Lumbago with sciatica, right side Recurrent kidney stones Sleep apnea Renal calculi Splenic artery aneurysm Shoulder pain, right Low back pain at multiple sites Varices of other sites Kidney stone on left side Lumbago with sciatica, left side Trigeminal neuralgia of right side of face Seronegative rheumatoid arthritis Nephrolithiasis Loose right total knee arthroplasty Gastroesophageal reflux disease Hiatal hernia Tailor's bunion of left foot Fibromyalgia Osteoarthritis Impaired fasting glucose Insomnia Cervical spondylosis without myelopathy Autoimmune urticaria Morbid obesity due to excess calories Surgical History History of esophagogastroduodenoscopy (EGD) History of colonoscopy History of arthroscopy of right shoulder History of laparoscopic cholecystectomy Status post laser lithotripsy of ureteral calculus History of bunionectomy of left great toe History of cranioplasty History of shoulder surgery Status post right knee replacement Family History Father Emphysema of lung Mother Hypertension Maternal Grandmother No problems noted. Maternal Grandfather No problems noted. Paternal Grandmother No problems noted. Paternal Grandfather No problems noted. Maternal Aunt Diabetes Sister No problems noted. Son No problems noted. Daughter No problems noted. 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 Alert and oriented. Mood and affect appropriate. Follows and participates in conversation appropriately. Respiratory effort is unlabored. Able to transition from sit to stand unassisted. Ambulates with bilaterally normal heel strike and toe off. Ultrasound exam of the right Achilles tendon revealed a potential tear. Results Reviewed Results Reviewed: 06/21/23: XR KNEE, LEFT. XR KNEE AP STANDING FINDINGS: Prosthetic components of the bilateral total knee arthroplasties are appropriately aligned without periprosthetic fracture or abnormal lucency. No component migration. No left knee joint effusion is presently seen. IMPRESSION: Appropriate alignment of the bilateral total knee arthroplasties, without evidence of complications. 06/18/23: XR FOOT, RIGHT FINDINGS: No acute fracture or dislocation. Joint space narrowing with marginal osteophytes at the 1st metatarsophalangeal joint and hallux sesamoids, unchanged. Plantar and dorsal calcaneal spurs are redemonstrated. Dystrophic calcification associated with the distal Achilles tendon has slightly increased, likely indicating chronic tendinopathy. IMPRESSION: 1. [id number] degenerative arthritis at the 1st metatarsophalangeal joint and hallux sesamoids, unchanged. 2. Plantar and dorsal calcaneal spurs, unchanged. 3. Dystrophic calcification associated with the distal Achilles tendon has slightly increased, likely indicating chronic tendinopathy. Assessment & Plan Assessment & Plan (1) Achilles tendon tear: Comment: right Code(s): S86.019A - Strain of unspecified Achilles tendon, initial encounter Qualifiers: Encounter type: initial encounter Laterality: right Qualified Code(s): S86.011A - Strain of right Achilles tendon, initial encounter Plan Ordered an MRI scan of the right ankle for further evaluation of the extent of injury revealed on in office ultrasound exam today. A referral was provided to orthopedic surgeon for evaluation and treatment of ruptured Achilles tendon from injury. The patient will follow up as needed. Scribed for Dr. Mart by Rafael Rojas, general medical practitioner, on 08/03/2023. I, Dr. Mart, have personally reviewed and agree with the information entered by the scribe. Orders: Orders MR ankle RT wo con 08/03/23 S86.019A - Strain of unspecified Achilles tendon, initial encounter Referrals Orthopedics Referral S86.019A - Strain of unspecified Achilles tendon, initial encounter Coding Level of Care Code Est Pt Level 4 (81924) Diagnoses Rupture of right Achilles tendon, initial encounter S86.011A Encounter type: initial encounter Laterality: right
== END 2023-08-03 12:02 | disposition home or self-care (01) ==
PROVIDERS: PCP Internal Medicine; Visit Provider Internal Medicine
DX: S86.011A Strain of right Achilles tendon, initial encounter (principal)
CPT/HCPCS: 99213

== ENCOUNTER → 2023-08-03 10:23 | Outpatient (BNVA) | payer OTHER, SELFPAY | PROVIDERS: PCP Internal Medicine; Visit Provider Internal Medicine | DX: S86.011A Strain of right Achilles tendon, initial encounter (principal) | CPT/HCPCS: 99212 ==

== ENCOUNTER 2023-08-11 09:49 | Outpatient (REF) | payer OTHER, SELFPAY ==
[2023-08-11 10:02] LABS: MANUAL DIFF FLAG NO
[2023-08-11 11:16] LABS: Basophils Absolute Auto 0.1 X10*3/uL (0.0-0.2); Basophils Percent Auto 1.5 % (0-2); Eosinophils Absolute Auto 0.1 X10*3/uL (0.0-0.4); Hematocrit 37.7 % (37.0-47.0); Hemoglobin 12.5 g/dl (12.0-16.0); Imm Gran Abs Auto 0.02 X10*3/uL (0.00-0.03); Imm Gran Pct Auto 0.4 % (0.0-0.4); Lymphocytes Absolute Auto 2.2 X10*3/uL (1.2-4.9); Lymphocytes Percent Auto 46.6 % (20-40); Mean Corpuscular HGB Conc 33.2 g/dl (31.0-35.0); Mean Corpuscular Hemoglobin 31.5 pg (27.0-33.0); Mean Platelet Volume 10.4 fL (9.4-12.3); Monocytes Absolute Auto 0.5 X10*3/uL (0.1-1.2); Monocytes Percent Auto 9.8 % (2-11); Neutrophils Absolute Auto 1.8 x10*3/uL (2.0-8.3); Neutrophils Percent Auto 39.7 % (45-73); Platelet Count 184 X10*3/uL (160-400); Red Blood Count 3.97 X10*6/uL (4.20-5.50); Red Cell Distribution Width 13.1 % (11.0-16.0); White Blood Count 4.6 X10*3/uL (4.8-10.8)
[2023-08-11 12:02] LABS: Alanine Aminotransferase 15 U/L (0-31); Albumin Level 3.8 g/dL (3.5-5.0); Alkaline Phosphatase 78 U/L (39-117); Anion Gap 11 (12-20); Aspartate Amino Transferase 19 U/L (5-31); Bilirubin Total 0.4 mg/dL (0.0-1.0); Blood Urea Nitrogen 16 mg/dL (9-16); C Reactive Protein 0.18 mg/dL (< or = 0.50); Calcium 8.9 mg/dL (8.4-10.2); Carbon Dioxide 27 mmol/L (22-29); Chloride 110 mmol/L (96-108); Estimated Glomerular Filt Rate > 60; Glucose Random 96 mg/dL (60-115); Sodium 144 mmol/L (135-145); Total Protein 7.2 g/dL (6.5-8.0)
[2023-08-11 13:25] LABS: Erythrocyte Sedimentation Rate 20 MM/HR (0-20)
== END 2023-08-11 09:50 | disposition home or self-care (01) ==
LOC: HO.LAB 09:49
PROVIDERS: PCP Internal Medicine; Visit Provider Student in an Organized Health Care Education/Training Program
DX: M06.09 Rheumatoid arthritis without rheumatoid factor, multiple sites (principal)
CPT/HCPCS: 36415; 80053; 85025; 85652; 86140

== ENCOUNTER 2023-08-15 09:42 | Outpatient (AMB) | payer OTHER, SELFPAY ==
--- NOTE | 2023-08-15 09:46 | A.OFFVIS_ITS ---
Intake Vital Signs 08/15/23 09:48 Height 5 ft Weight 171 lb 15.369 oz BMI 33.6 BP 150/72 H Blood Pressure Location Rt brachial Position Sitting Pulse 92 Pulse Source Pulse Oximeter Temp 97.4 F Temp Source Skin Pulse Oximetry (%) 95 Intake Visit Reasons: RA Intake Note: Pt last seen 05/18/23, presents today for follow up and test results. Enbrel d/c because of ineffectiveness, started on Humira and continues with plaquenil. Management Planner Required: Yes Management Planner Name: Navin [id number] Accompanied by: Self / Same As Patient Allergies No Known Allergies [No Known Allergies*] Allergy (Verified 08/15/23 09:49) Medication List - Last Reconciled 08/15/23 by Guillermo Lakhani MD adalimumab (Humira(CF)) inject one - 40 mg/0.4 mL syringe every 2 weeks subcut carbamazepine 400 mg PO BID hydroxychloroquine 300 mg (1.5 x 200 mg) PO DAILY pregabalin 1 cap PO BID pregabalin 25 mg PO BID triamcinolone acetonide 0.1% 1 appl topical BID 10 days HPI HPI Comments History of Present Illness Details This is a 67-year-old female with a past medical history of seronegative rheumatoid arthritis who presents for follow-up. On Humira 40 mg every other week and hydroxychloroquine 300 mg daily. A few months ago patient bumped the back of right ankle against a shopping cart. She was evaluated by a proofsheet corrector and had an ultrasound exam and the steroid injection which did not provide much relief according to patient. She was then evaluated by Pain Management and an ankle MRI was ordered to evaluate for Achillis tendinopathy. She states that recently she has been having pain in her right lower back, bilateral knee pain, worse on the left and pain in the back of her right heel. She states that she will be going for [employer] treatment for her left knee pain by Pain Management soon [facility] Medical History Positional lightheadedness Lumbago with sciatica, right side Recurrent kidney stones Sleep apnea Renal calculi Splenic artery aneurysm Shoulder pain, right Low back pain at multiple sites Varices of other sites Kidney stone on left side Lumbago with sciatica, left side Trigeminal neuralgia of right side of face Seronegative rheumatoid arthritis Nephrolithiasis Loose right total knee arthroplasty Gastroesophageal reflux disease Hiatal hernia Tailor's bunion of left foot Fibromyalgia Osteoarthritis Impaired fasting glucose Insomnia Cervical spondylosis without myelopathy Autoimmune urticaria Morbid obesity due to excess calories Surgical History History of esophagogastroduodenoscopy (EGD) History of colonoscopy History of arthroscopy of right shoulder History of laparoscopic cholecystectomy Status post laser lithotripsy of ureteral calculus History of bunionectomy of left great toe History of cranioplasty History of shoulder surgery Status post right knee replacement Family History Father Emphysema of lung Mother Hypertension Maternal Grandmother No problems noted. Maternal Grandfather No problems noted. Paternal Grandmother No problems noted. Paternal Grandfather No problems noted. Maternal Aunt Diabetes Sister No problems noted. Son No problems noted. Daughter No problems noted. 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) Alcohol intake: never Patient Tobacco Use Status: Never used Tobacco e-Cigarette/Vaping Use: Never Used service: No Current occupational status: unemployed Current occupation: rt handed Cognitive needs: No Hearing needs: No Vision needs: No Review of Systems Musc Reports arthralgias, Reports joint swelling and Reports stiffness Physical Exam Vital Signs: Last Vital Signs Temp 97.4 F 08/15/23 09:48 Pulse 92 08/15/23 09:48 BP 150/72 H 08/15/23 09:48 Pulse Ox 95 08/15/23 09:48 BMI result Body Mass Index 33.6 Const General: cooperative, healthy appearing and comfortable Nutritional Appearance: obese Orientation/consciousness: patient oriented x3 Limitations: no limitations HEENT Head: Yes normocephalic and Yes atraumatic Mouth: moist mucous membranes Resp Effort & Inspection: normal respiratory effort and able to speak in complete sentences Neuro General: patient oriented x3 Extrem Other: No MCP swelling or tenderness today Right 2nd PIP tenderness Bilateral knee warmth, worse on the left associated with minimal swelling Right ankle tenderness at the Achillis tendon insertion Right 2nd MTP tenderness, left 2nd and 5th MTP tenderness Results Reviewed Results Reviewed: 06/21/23: XR KNEE, LEFT. XR KNEE AP STANDING FINDINGS: Prosthetic components of the bilateral total knee arthroplasties are appropriately aligned without periprosthetic fracture or abnormal lucency. No component migration. No left knee joint effusion is presently seen. IMPRESSION: Appropriate alignment of the bilateral total knee arthroplasties, without evidence of complications. 06/18/23: XR FOOT, RIGHT FINDINGS: No acute fracture or dislocation. Joint space narrowing with marginal osteophytes at the 1st metatarsophalangeal joint and hallux sesamoids, unchanged. Plantar and dorsal calcaneal spurs are redemonstrated. Dystrophic calcification associated with the distal Achilles tendon has slightly increased, likely indicating chronic tendinopathy. IMPRESSION: 1. [id number] degenerative arthritis at the 1st metatarsophalangeal joint and hallux sesamoids, unchanged. 2. Plantar and dorsal calcaneal spurs, unchanged. 3. Dystrophic calcification associated with the distal Achilles tendon has slightly increased, likely indicating chronic tendinopathy. Assessment & Plan Assessment & Plan (1) Seronegative rheumatoid arthritis: Comment: Seronegative RA diagnosed in [place]. Evaluated [facility] 2007 - has been on Plaquenil 200 mg BID and Enbrel weekly since then. MTX dates unknown. ENbrel DC 05/30 ineffective Humira 05/30 Code(s): M06.00 - Rheumatoid arthritis without rheumatoid factor, unspecified site Plan: This is a 67-year-old female with seronegative RA returns for follow-up. She started Humira 40 mg every other week 2-3 months ago. She continues to have multiple tender joints. It is unclear whether right ankle pain is related to her injury Will prescribe a prednisone taper and reassess. If there is significant improvement, will consider switching DMARDs Will follow-up right ankle MRI ordered by Pain Management Plan I spent 30 minutes reviewing patient's chart, evaluating patient, placing orders, counseling patient and documenting in the chart Medications: New prednisone Take 3 tabs by mouth once daily with breakfast for 1 week, then 2 tabs daily for 1 week then stay on 1 tab daily until next visit 51 tabs 0RF Coding Level of Care Code Est Pt Level 4 (76248) Diagnoses Seronegative rheumatoid arthritis M06.00
[2023-08-15 09:48] VITALS: BP 150/72; PULSE 92; TEMP 36.3; O2SAT 95; BMI 33.6
== END 2023-08-15 10:13 | disposition home or self-care (01) ==
PROVIDERS: PCP Internal Medicine; Visit Provider Student in an Organized Health Care Education/Training Program
DX: M06.00 Rheumatoid arthritis without rheumatoid factor, unspecified site (principal)
CPT/HCPCS: 99214

== ENCOUNTER → 2023-08-15 09:42 | Outpatient (BNVA) | payer OTHER, SELFPAY | PROVIDERS: PCP Internal Medicine; Visit Provider Student in an Organized Health Care Education/Training Program | DX: M06.00 Rheumatoid arthritis without rheumatoid factor, unspecified site (principal) | CPT/HCPCS: 99212 ==

== ENCOUNTER 2023-08-22 06:43 | Day surgery (SDC) | payer OTHER, SELFPAY ==
[2023-08-22 07:18] VITALS: BMI 31.9
[2023-08-22 07:21] VITALS: BP 132/62; PULSE 84; RESP 18; TEMP 35.8; O2SAT 97
[2023-08-22 10:32] VITALS: BP 121/67; PULSE 73; RESP 16; TEMP 36.3; O2SAT 97
--- NOTE | 2023-08-22 10:45 | MHC.SHP ---
Pre-Procedural Eval Section A Date of Service: 08/22/23 The patient is an INPATIENT: No Changes since office visit: Yes Patient answered all questions The History & Physical has been completed within 30 days and I have reviewed it.: No Section B Chief Complaint: Pain in left knee Relevant Family History (Specify if Yes): No Relevant Social History: Other (specify) Present Medications: see Short Stay Collaborative assessment Medical History: No relevant PMH History of Previous Operations: No relevant previous surgery Allergies: Allergies Allergy/AdvReac Type Severity Reaction Status Date / Time No Known Allergies Allergy Verified 08/15/23 09:49 [No Known Allergies*] Review of Systems Sugical H&P ROS: Negative: Constitution, Cardiovascular and Respiratory Exam Surgical H&P Exam: Normal: HEENT, Normal: Heart and Normal: Lungs Plan Diagnosis/Plan: Unchanged I have reviewed the history and physical and performed a pertinent physical examination on my patient. No changes have occurred unless specified. Time Spent With Patient Time: Total time managing care of this patient today ____ minutes.
--- NOTE | 2023-08-22 15:10 | P.BOP_ITS ---
Brief Operative Note Date of Service: 08/22/23 Pre-op diagnosis: Chronic post arthroplasty left knee pain Post-op diagnosis: same Procedure: Temporary left saphenous nerve stimulator placement Implants: [employer] temporary PNS system Surgeon: Ye Mart MD Anesthesia: local Was an Information Systems Professor used for this Procedure?: No Estimated blood loss (mL): 1 Pathology: none sent Condition: stable Disposition: same day
--- NOTE | 2023-08-22 15:11 | P.OP_ITS ---
Operative Note Operative Note Date of Service: 08/22/23 Narrative: Peripheral Nerve Stimulation Temporary Lead Placement, Ultrasound-Guided, Saphenous Nerve, Left ? After the risks, benefits and alternatives were discussed with the patient and informed consentwas obtained, patient was placed in the supine position and padded to foster comfort. Appropriate skin and bony landmarks were identified, and pertinent vascular structures were located. The skin overlying the needle entry site was prepped and draped in sterile fashion. Ultrasound was used to identify the femoral artery, the femoral vein and the saphenous nerve. After identifying and marking the intended target along the course of the Saphenous nerve, the skin around the planned entry point and the subcutaneous tissues were injected with local anesthetic. An introducer needle and stimulating probe were assembled, inserted and advanced along the intended course of the saphenous; nerve, taking care to maintain the proper depth of insertion as the introducer was advanced under ultrasound guidance. The introducer needle was delivered to a location in proximity to the nerve taking care not to puncture the femoral artery or the vein. Multiple stimulation parameters were used to deliver stimulation to the saphenous nerve in concert with stimulating at multiple positions around the nerve. Nerve target acquisition was confirmed noting generation of sensory and mild motor effects (paresthesia, muscle tension, etc) in the medial knee, leg and ankle; corresponding to the distribution of the saphenous nerve. Various electrical parameter combinations were tested, and the lead location was adjusted (physica lly relocated under ultrasound guidance) until the patient indicated medial knee paresthesia and tension overlapping the distribution of the patient?s typical region of pain. The stimulating probe was removed from the introducer and a percutaneous lead was guided through the needle and delivered to a location in similar proximity to the nerve. Final location was verified with electrical stimulation and documented. The introducer needle was removed, and the exposed end of the percutaneous lead was attached to an external stimulator unit. Various electrical parameter combinations were again tested until the patient indicated paresthesia and muscle tension overlapping the distribution of the patient?s typical region of pain. After confirming that lead impedance was in the normal range, the external unit was detached, the needle was removed, and the lead was anchored at the skin. The lead was threaded into the connector block and electrical continuity and desired patient response was confirmed. The connector block was attached to the external stimulator unit. The site was covered with a sterile occlusive dressing. A final ultrasound image was taken to document final placement. The patient was observed for stability of vital signs and comfort.
== END 2023-08-22 11:08 | disposition home or self-care (01) ==
PROVIDERS: PCP Internal Medicine; Visit Provider Internal Medicine
PROC: (CPT 64555; principal; 2023-08-22 08:00)
DX: T84.84XA Pain due to internal orthopedic prosthetic devices, implants and grafts, initial encounter (principal); M25.562 Pain in left knee; G89.28 Other chronic postprocedural pain; Y79.2 Prosthetic and other implants, materials and accessory orthopedic devices associated with adverse incidents; M06.00 Rheumatoid arthritis without rheumatoid factor, unspecified site; E66.01 Morbid (severe) obesity due to excess calories; Z68.32 Body mass index [BMI] 32.0-32.9, adult; Z96.653 Presence of artificial knee joint, bilateral; Z98.890 Other specified postprocedural states; Z87.442 Personal history of urinary calculi
CPT/HCPCS: 64555; C1778

== ENCOUNTER → 2023-08-22 06:43 | Outpatient (BNV) | payer OTHER, SELFPAY | PROVIDERS: PCP Internal Medicine; Visit Provider Internal Medicine | DX: M25.562 Pain in left knee (principal) | CPT/HCPCS: 64555 ==

== ENCOUNTER 2023-08-24 09:04 | Outpatient (AMB) | payer OTHER, SELFPAY ==
[2023-08-24 09:43] VITALS: BP 122/52; PULSE 94; TEMP 36.7; O2SAT 97; BMI 32.3
--- NOTE | 2023-08-24 09:43 | MHC.OFFWIV ---
Intake Vital Signs 08/24/23 09:43 Height 5 ft 1 in Weight 171 lb BMI 32.3 BP 122/52 L Blood Pressure Location Lt brachial Position Sitting Pulse 94 Pulse Source Pulse Oximeter Temp 98.1 F Temp Source Oral Pulse Oximetry (%) 97 Oxygen Delivery Method Room Air Intake Visit Reasons: EST/right side pain (lobby) Intake Note: Pt is here today c/o Rt lower back pain x2mo. Patient Tobacco Use Status: Never used Tobacco Allergies No Known Allergies [No Known Allergies*] Allergy (Verified 08/24/23 09:48) HPI HPI Comments History of Present Illness Details This is a 67-year-old female who presents to the office today for sick visit. Patient complaining of right low back pain x2 months. Patient denies trauma such as injury/fall prior to the onset of her symptoms. She denies any dysuria/hematuria or frequency/urgency. She denies any numbness/weakness/paresthesias of extremities. She denies any bowel/bladder incontinence/retention. She denies any fever/chills. She denies any saddle anesthesias. Patient states she had a lumbar spine x-ray, which showed arthritis. [facility] Medical History Positional lightheadedness Lumbago with sciatica, right side Recurrent kidney stones Sleep apnea Renal calculi Splenic artery aneurysm Shoulder pain, right Low back pain at multiple sites Varices of other sites Kidney stone on left side Lumbago with sciatica, left side Trigeminal neuralgia of right side of face Seronegative rheumatoid arthritis Nephrolithiasis Loose right total knee arthroplasty Gastroesophageal reflux disease Hiatal hernia Tailor's bunion of left foot Fibromyalgia Osteoarthritis Impaired fasting glucose Insomnia Cervical spondylosis without myelopathy Autoimmune urticaria Morbid obesity due to excess calories Surgical History History of esophagogastroduodenoscopy (EGD) History of colonoscopy History of arthroscopy of right shoulder History of laparoscopic cholecystectomy Status post laser lithotripsy of ureteral calculus History of bunionectomy of left great toe History of cranioplasty History of shoulder surgery Status post right knee replacement Family History Father Emphysema of lung Mother Hypertension Maternal Grandmother No problems noted. Maternal Grandfather No problems noted. Paternal Grandmother No problems noted. Paternal Grandfather No problems noted. Maternal Aunt Diabetes Sister No problems noted. Son No problems noted. Daughter No problems noted. 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) Alcohol intake: never Patient Tobacco Use Status: Never used Tobacco e-Cigarette/Vaping Use: Never Used service: No Current occupational status: unemployed Current occupation: rt handed Cognitive needs: No Hearing needs: No Vision needs: No Review of Systems Const All systems reviewed & are unremarkable except as noted in HPI and below Reports no additional complaints Eyes Reports no additional complaints ENT Reports no additional complaints Card Reports no additional complaints Resp Reports no additional complaints GI Reports no additional complaints Reports no additional complaints Musc Reports no additional complaints Skin/Breast Reports system reviewed and no additional complaints, except as documented Neuro Reports no additional complaints Psych Reports no additional complaints Endo Reports no additional complaints Cole/Lymph Reports no additional complaints Aller/Immun Reports no additional complaints Physical Exam Vital Signs: Last Vital Signs Temp 98.1 F 08/24/23 09:43 Pulse 94 08/24/23 09:43 BP 122/52 L 08/24/23 09:43 Pulse Ox 97 08/24/23 09:43 Oxygen Delivery Method Room Air 08/24/23 09:43 BMI result Body Mass Index 32.3 Const Other: Vital signs reviewed. Constitutional: Non-toxic appearing. No acute distress. Well-developed and well-nourished. HEENT: Normocephalic and atraumatic. Skin: Warm and dry. No rashes or lesions noted. Neck: Full and painless range of motion. No cervical lymphadenopathy. Cardio: Regular rate and rhythm. Pulmonary: No respiratory distress. No accessory muscle usage. Clear to auscultation bilaterally without wheezing, crackles, or rhonchi. Gastrointestinal: Soft, nontender, and nondistended in all 4 quadrants. Genitourinary: No CVA tenderness. Musculoskeletal: Mild tenderness to palpation of the right paraspinal musculature of the lumbar spine and thoracic spine. Mild palpable muscle spasms of the paraspinal musculature of the right side. No midline or spinous process tenderness to palpation. Gait intact. Neuro: Alert and oriented x4. Cranial nerves 2-12 grossly intact. No focal deficits appreciated. Psych: Normal mood and affect. Results AMB Urinalysis, Automated UA Leukoctes 0 Jocelyn/uL Last Edit by Ute Cameron CMA on 08/24/23 10:03 UA Nitrite Negative Last Edit by Ute Cameron, CHITRA on 08/24/23 10:03 UA Urobilinogen 0.2 mg/dL Last Edit by Ute Cameron, BRIDGE GANG WORKER on 08/24/23 10:03 UA Protein 0 mg/dL Last Edit by Ute Cameron, BRIDGE GANG WORKER on 08/24/23 10:03 UA pH 6.0 Last Edit by Ute Cameron, BRIDGE GANG WORKER on 08/24/23 10:03 UA Blood 0 Rm/uL Last Edit by Ute Cameron, BRIDGE GANG WORKER on 08/24/23 10:03 UA Specific [place] 1.030 Last Edit by Ute Cameron, CHITRA on 08/24/23 10:03 UA Ketone Negative Last Edit by Ute Cameron, BRIDGE GANG WORKER on 08/24/23 10:03 UA Bilirubin 0 mg/dL Last Edit by Ute Cameron, CHITRA on 08/24/23 10:03 UA Glucose 0 mg/dL Last Edit by Ute Cameron, CHITRA on 08/24/23 10:03 Results Reviewed Results Reviewed: Laboratory Last Values Urine pH (Auto) 6.0 08/24/23 09:51 Specific [place] (Auto) 1.030 08/24/23 09:51 Urine Protein (Auto) 0 mg/dL 08/24/23 09:51 Glucose (UA)(Auto) 0 mg/dL 08/24/23 09:51 Urine Ketones (Auto) Negative 08/24/23 09:51 Urine Blood (Auto) 0 Rm/uL 08/24/23 09:51 Urine Nitrite (Auto) Negative 08/24/23 09:51 Urine Bilirubin (Auto) 0 mg/dL 08/24/23 09:51 Urine Urobilinogen (Auto) 0.2 mg/dL 08/24/23 09:51 Leukocyte Esterase (Auto) 0 Jocelyn/uL 08/24/23 09:51 Assessment & Plan Assessment & Plan (1) Spasm of paraspinal muscle: Code(s): M62.830 - Muscle spasm of back Plan: This is a 67-year-old female presenting to the office complaining of right-sided low back pain x2 months. On physical examination, patient has mild tenderness to palpation and muscle spasm of the right paraspinal musculature. Patient has no red flag symptoms or spinous process/midline tenderness to palpation. Urinalysis negative for hematuria, so nephrolithiasis unlikely. History and physical most consistent with a paraspinal muscular sprain/strain with muscle spasm. Recommend rest/activity modification, heat to the area, [id number] lidocaine patches and continue with acetaminophen/ibuprofen for pain management as long as patient has no medical contraindications. Patient sent home on p.o. methocarbamol 750 mg at bedtime as needed for muscle spasms. Patient advised to follow-up here proceed to the emergency room for persistent/worsening symptoms or if she were to develop any red flag symptoms. Patient verbalizes her understanding and she is in agreement with the plan. Orders: Orders AMB Urinalysis Automated Today Z13.9 - Encounter for screening, unspecified David Arce MD Medications: New methocarbamol 750 mg PO BEDTIME PRN 14 tabs 0RF muscle spasm RHONDA Mojica Coding Level of Care Code Est Pt Level 3 (67334) Diagnoses Spasm of paraspinal muscle M62.830
== END 2023-08-24 10:09 | disposition home or self-care (01) ==
PROVIDERS: PCP Internal Medicine; Visit Provider Physician Assistant Medical
DX: M62.830 Muscle spasm of back (principal)
CPT/HCPCS: 81003; 99213

== ENCOUNTER 2023-08-27 08:29 | Outpatient (AMB) | payer OTHER, SELFPAY ==
[2023-08-27 08:38] VITALS: PULSE 84; RESP 12; O2SAT 95; BMI 32.1
--- NOTE | 2023-08-27 08:38 | MHC.OFFVIS ---
Intake Vital Signs 08/27/23 08:38 Height 5 ft 1 in Weight 170 lb BMI 32.1 Blood Pressure Location Lt brachial Position Sitting Respiration 12 Pulse 84 Pulse Source Pulse Oximeter Pulse Oximetry (%) 95 Oxygen Delivery Method Room Air Intake Visit Reasons: s/p left SN Sprint/confirmed Flexographic Press Operator Required: Yes Flexographic Press Operator Name: [id number] Sandi Allergies No Known Allergies [No Known Allergies*] Allergy (Verified 08/27/23 08:40) Medication List - Last Reconciled 08/27/23 by Chloe Vaughn LPN adalimumab (Humira(CF)) inject one - 40 mg/0.4 mL syringe every 2 weeks subcut carbamazepine 400 mg PO BID hydroxychloroquine 300 mg (1.5 x 200 mg) PO DAILY methocarbamol 750 mg PO BEDTIME PRN prednisone Take 3 tabs by mouth once daily with breakfast for 1 week, then 2 tabs daily for 1 week then stay on 1 tab daily until next visit pregabalin 1 cap PO BID pregabalin 25 mg PO BID triamcinolone acetonide 0.1% 1 appl topical BID 10 days HPI s/p left SN Sprint/confirmed HPI Details 67-year-old female who presents today to the office for a status post left SN sprint. A certified rail transportation tabeler was present during the visit. The patient reports 90% relief following the procedure. The patient had complete relief for her left knee pain since the sprint device was placed. She continues to complains of right Achilles tendon related pain for which she is seeing orthopedics on 09/14/23. She had an MRI scheduled for 09/24/23, but she will defer that MRI until after the Sprint device is removed. She also complains of lower back pain, which starts in the right lower back and radiates down the right hip thigh and knee. She has not had any work up for her low back. She is hesitant to go for physical therapy at this time. She would like to focus on the back after her knee and ankle are addressed. Past procedures: 08/22/23: Peripheral Nerve Stimulation Temporary Lead Placement, Ultrasound-Guided, Saphenous Nerve, Left: 90% relief in the 1st week. 06/15/23: Bilateral infrapatellar saphenous nerve blocks: 75% relief for the diagnostic phase. 05/16/23: Right hip intra-articular steroid injection: 90% relief, ongoing. [facility] Medical History Positional lightheadedness Lumbago with sciatica, right side Recurrent kidney stones Sleep apnea Renal calculi Splenic artery aneurysm Shoulder pain, right Low back pain at multiple sites Varices of other sites Kidney stone on left side Lumbago with sciatica, left side Trigeminal neuralgia of right side of face Seronegative rheumatoid arthritis Nephrolithiasis Loose right total knee arthroplasty Gastroesophageal reflux disease Hiatal hernia Tailor's bunion of left foot Fibromyalgia Osteoarthritis Impaired fasting glucose Insomnia Cervical spondylosis without myelopathy Autoimmune urticaria Morbid obesity due to excess calories Surgical History History of esophagogastroduodenoscopy (EGD) History of colonoscopy History of arthroscopy of right shoulder History of laparoscopic cholecystectomy Status post laser lithotripsy of ureteral calculus History of bunionectomy of left great toe History of cranioplasty History of shoulder surgery Status post right knee replacement Family History Father Emphysema of lung Mother Hypertension Maternal Grandmother No problems noted. Maternal Grandfather No problems noted. Paternal Grandmother No problems noted. Paternal Grandfather No problems noted. Maternal Aunt Diabetes Sister No problems noted. Son No problems noted. Daughter No problems noted. 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 Alert and oriented. Mood and affect appropriate. Follows and participates in conversation appropriately. Respiratory effort is unlabored. Able to transition from sit to stand unassisted. Ambulates with bilaterally normal heel strike and toe off. Lead insertion site is clean, dry and intact. Dressing changed in the office today. Results Reviewed Results Reviewed: No imaging is available for review. Assessment & Plan Assessment & Plan (1) Achilles tendon tear: Comment: right Code(s): S86.019A - Strain of unspecified Achilles tendon, initial encounter Qualifiers: Encounter type: initial encounter Laterality: right Qualified Code(s): S86.011A - Strain of right Achilles tendon, initial encounter (2) Chronic knee pain after total replacement of both knee joints: Comment: left worse than right Code(s): M25.561 - Pain in right knee; M25.562 - Pain in left knee; G89.28 - Other chronic postprocedural pain; Z96.653 - Presence of artificial knee joint, bilateral (3) Lumbago with sciatica, right side: Code(s): M54.41 - Lumbago with sciatica, right side Plan Continue full two months of left Sprint saphenous PNS therapy to be removed on October 19, 2023. Reschedule MRI for the right Achilles tendon after October 19, 2023. The patient is scheduled to see the ankle surgeon on September 14 as an initial appointment, so she will keep that appointment as planned. After the PNS device is removed and the ankle plan is clear, we will plan on initiating PT and or further investigations for the lower back as needed. Scribed for Dr. Mart by Rafael Rojas, medical administrator, on 08/27/2023. I, Dr. Mart, have personally reviewed and agree with the information entered by the scribe. Coding Level of Care Code Est Pt Level 4 (61925) Diagnoses Rupture of right Achilles tendon, initial encounter S86.011A Encounter type: initial encounter Laterality: right Chronic knee pain after total replacement of both knee joints M25.561; M25.562; G89.28; Z96.653 Lumbago with sciatica, right side M54.41
== END 2023-08-27 09:00 | disposition home or self-care (01) ==
PROVIDERS: PCP Internal Medicine; Visit Provider Internal Medicine
DX: S86.011A Strain of right Achilles tendon, initial encounter (principal); M25.561 Pain in right knee; M25.562 Pain in left knee; G89.28 Other chronic postprocedural pain; Z96.653 Presence of artificial knee joint, bilateral; M54.41 Lumbago with sciatica, right side
CPT/HCPCS: 99024

== ENCOUNTER → 2023-08-27 08:29 | Outpatient (BNVA) | payer OTHER, SELFPAY | PROVIDERS: PCP Internal Medicine; Visit Provider Internal Medicine | DX: M76.61 Achilles tendinitis, right leg (principal); M54.41 Lumbago with sciatica, right side; M54.42 Lumbago with sciatica, left side; M25.561 Pain in right knee; M25.562 Pain in left knee; G89.28 Other chronic postprocedural pain; Z96.82 Presence of neurostimulator; Z96.653 Presence of artificial knee joint, bilateral | CPT/HCPCS: 99212 ==

== ENCOUNTER 2023-08-29 11:03 | Emergency (ER) | payer OTHER, SELFPAY ==
--- NOTE | ~2023-08-29 | XR_ITS ---
EXAMINATION: XR HIP, RIGHT CLINICAL INFORMATION: Right-sided pain COMPARISON: None available. TECHNIQUE: Two views of the right hip. FINDINGS: Circumferential narrowing of the right hip joint space with marginal spurring noted however, no evidence of fracture, dislocation or destructive process. Pelvis is intact. SI joints appear symmetric. XR/XR hip RT w PEL1V IMPRESSION: Degenerative change but no acute findings.
[2023-08-29 11:48] VITALS: BP 148/94; PULSE 80; RESP 18; TEMP 36.6; O2SAT 96; BMI 32.2
--- NOTE | 2023-08-29 11:48 | ED.BACK ---
HPI - Back Pain/Injury General Chief Complaint: Abdominal Pain Stated Complaint: R flank pain rad to back Time Seen by Provider: 08/29/23 14:58 Source: patient Mode of arrival: ambulatory Limitations: no limitations History of Present Illness HPI Narrative: 67-year-old female history rheumatoid arthritis, bilateral knee replacements, Achilles tendon tear, lumbar radiculopathy, sciatica, hypertension, and kidney stones presents to ED for right lower hip back pain for couple days that worse on movement. Patient denies any pain going down the legs. Patient denies any dysuria, hematuria, nausea, vomiting, fever, chills, or abdominal pain. Patient states follows with pain management. Patient denies any recent trauma. PATIENT denies any urinary/bowel incontinence. Related Data Home Medications Medication Instructions Recorded Confirmed pregabalin 150 mg capsule 1 cap PO BID 07/04/22 08/27/23 carbamazepine 200 mg tablet 400 mg PO BID 07/10/22 08/27/23 pregabalin 25 mg capsule 25 mg PO BID 10/05/22 08/27/23 Previous Rx's Medication Instructions Recorded triamcinolone acetonide 0.1 % 1 appl topical BID 10 days #30 03/06/23 topical cream grams adalimumab 40 mg/0.4 mL See Rx Instructions subcut 05/25/23 subcutaneous syringe kit .COMPLEX #2 ea (Humira(CF)) hydroxychloroquine 200 mg tablet 300 mg (1.5 x 200 mg) PO DAILY 07/20/23 #135 tabs prednisone 10 mg tablet See Rx Instructions PO .COMPLEX 08/15/23 #51 tabs methocarbamol 750 mg tablet 750 mg PO BEDTIME PRN muscle spasm 08/24/23 #14 tabs ketorolac 10 mg tablet 10 mg PO QID PRN pain 5 days #20 08/29/23 tabs Allergies Allergy/AdvReac Type Severity Reaction Status Date / Time No Known Allergies Allergy Verified 08/29/23 11:48 [No Known Allergies*] Review of Systems Review of Systems: Right lower hip pain. Yes all other systems are reviewed and are negative PMFSH Past Medical History Medical History Positional lightheadedness Lumbago with sciatica, right side Recurrent kidney stones Sleep apnea Renal calculi Splenic artery aneurysm Shoulder pain, right Low back pain at multiple sites Varices of other sites Kidney stone on left side Lumbago with sciatica, left side Trigeminal neuralgia of right side of face Seronegative rheumatoid arthritis Nephrolithiasis Loose right total knee arthroplasty Gastroesophageal reflux disease Hiatal hernia Tailor's bunion of left foot Fibromyalgia Osteoarthritis Impaired fasting glucose Insomnia Cervical spondylosis without myelopathy Autoimmune urticaria Morbid obesity due to excess calories Surgical History History of esophagogastroduodenoscopy (EGD) History of colonoscopy History of arthroscopy of right shoulder History of laparoscopic cholecystectomy Status post laser lithotripsy of ureteral calculus History of bunionectomy of left great toe History of cranioplasty History of shoulder surgery Status post right knee replacement Family History Family History Father Emphysema of lung Mother Hypertension Maternal Grandmother No problems noted. Maternal Grandfather No problems noted. Paternal Grandmother No problems noted. Paternal Grandfather No problems noted. Maternal Aunt Diabetes Sister No problems noted. Son No problems noted. Daughter No problems noted. 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) Alcohol intake: never Patient Tobacco Use Status: Never used Tobacco e-Cigarette/Vaping Use: Never Used Advance Directives: No Advance Directives Information Provided: No service: No Current occupational status: unemployed Current occupation: rt handed Cognitive needs: No Hearing needs: No Vision needs: No Physical Exam Vital Signs: Vital Signs: Last Vital Signs Temp 97.8 F 08/29/23 17:20 Pulse 70 08/29/23 17:20 Resp 18 08/29/23 17:20 BP 150/72 H 08/29/23 17:20 Pulse Ox 100 08/29/23 17:20 O2 Del Method Room Air 08/29/23 17:20 BMI result Body Mass Index 32.2 Const: General: cooperative, healthy appearing, comfortable, no acute distress, well developed, alert, awake and Physically active Orientation/consciousness: oriented to person, oriented to place, oriented to time and patient oriented x3 HEENT: Head: Yes normal to inspection, Yes No palpable skull fracture present, Yes normocephalic and Yes atraumatic Eyes: General: appearance normal, both eyes and all related structures Neck: Neck: Yes normal visual inspection, Yes full ROM, Yes no lymphadenopathy, Yes no meningeal signs, Yes trachea midline, Yes supple, No anterior neck swelling and No tender Chest: Chest palpation & inspection: normal inspection of the chest and normal palpation of entire chest wall Resp: Effort & Inspection: normal respiratory effort and able to speak in complete sentences Auscultation: clear to auscultation bilaterally Cardio: Jugular venous distension: no JVD Heart sounds: S1 normal heart sound present and S2 normal heart sound present GI: Inspection: Yes normal to inspection Palpation (GI): Soft to palpation, not firm, nontender, no guarding and not rigid : General: Yes no CVA tenderness Back/Spine/Pelvis: Back: no CVA tenderness and No back tenderness Back/spine/pelvis image: 1. Positive for tenderness on palpation. Negative for erythema, mass, ecchymosis, crepitus, deformity.. Negative for spinal tenderness or flank pain. positive for pain on range of motion Skin: General skin exam: no rashes or lesions noted, elasticity normal and turgor normal Neuro: General: oriented to person, oriented to place, oriented to time, patient oriented x3, gait normal, tone normal, moves all extremities, Normal light touch and pain sensation, no meningeal signs, no focal motor deficits, CN's II-XI intact bilaterally and normal sensation to monofilament Extrem: General: Yes normal to inspection and Yes full ROM Psych: Appearance: grossly normal, well kempt and not disheveled Course Course Course Narrative: This is a rapid medical exam. Deferred additional HPI, ROS, PE to primary provider. 67 yo female with pmh of RA, OA, fibromyalgia, trigeminal neuralgia here with complaints of right flank pain with radiation to her mid back x1 month. No other associated symptoms. Will obtain UA VSS Medications Administered Discontinued Medications Generic Name Dose Route Start Last Admin Trade Name Freq PRN Reason Stop Dose Admin Ketorolac Tromethamine 30 mg 08/29/23 16:00 08/29/23 16:08 Ketorolac Tromethamine 30 Mg/Ml Vial IM 08/29/23 16:01 30 mg ONCE ONE Administration Prednisone 20 mg 08/29/23 16:20 08/29/23 16:23 Prednisone 20 Mg Tablet PO 08/29/23 16:21 20 mg ONCE ONE Administration Medical Decision Making Medical Decision Making [facility] Narrative: 67-year-old female with multiple past medical history including chronic back pain, rheumatoid arthritis, lumbar radiculopathy, vertigo, and sciatica presents ED for right lower hip pain that is worse on movement without any trauma, nausea, vomiting, abdominal pain, dysuria, hematuria. X-ray ordered. Right lower extremity negative for any swelling bilaterally. negative for neuro deficits. Patient denies any history of IV drug use or immunocompromise diseases. Patient denies any urinary / bowel incontinence. 5:45Pm: x-ray shows degenerative disc disease of the hip. Urine negative for UTI or blood to indicate kidney stones. Not suspecting cauda equina or epidural abscess. Not suspecting kidney stones. Not suspect any abdominal etiology. Patient is safe for discharge Differential Diagnosis Differential Diagnoses: The differential diagnosis associated with the presentation includes ( UTI, kidney stones, lumbar radiculopathy, sciatica, hip fracture, hip dislocation, hip arthritis) Admission/Observation Consideration of admission/observation: Escalation of care including admission/observation considered Lab Data [facility] Lab Attestation statement: I reviewed the patient's lab results. Labs: Lab Results 08/29/23 Range/Units 12:32 Urine Color Yellow Urine Appearance Clear Urine pH 7.0 (5.0-9.0) Ur Specific [place] 1.020 (1.005-1.025) Urine Protein Negative (Neg-Trace) mg/dL Urine Glucose (UA) Negative (Negative) mg/dL Urine Ketones Negative (Negative) mg/dL Urine Blood Negative (Negative) Urine Nitrite Negative (Negative) Ur Leukocyte Esterase Negative (Negative) Independent Interpretation I performed an independent interpretation of an: Plain X-Ray Radiology Impression Discussion of test interpretation with radiology: I have reviewed the radiologist's reading. External Record Review External record reviewed: Other ( prior visit) Prescription Management I considered prescription management with: Pain Medication Discharge Plan Discharge Clinical Impression: Osteoarthritis of right hip Patient Disposition: Home, Self-Care Instructions: Osteoarthritis (DC) Additional Instructions: return to the ED immediately for worsening hip/back pain, urinary/bowel incontinence, numbness / paralysis/tingling of lower extremities, abdominal pain, flank pain, fever, chills, dysuria, hematuria, or any other concerning symptoms. Please follow-up with primary care provider and pain management provider. Regrese al servicio de urgencias de inmediato si el dolor de cadera/espalda empeora, incontinencia urinaria/intestinal, entumecimiento/par?lisis/hormigueo de las extremidades inferiores, dolor abdominal, dolor en el costado, fiebre, escalofr?os, disuria, hematuria o cualquier otro s?ntoma preocupante. Edwardo un seguimiento con el proveedor de atenci?n primaria y el proveedor de tratamiento del dolor.No tome esther?n otro SEA con ketorolaco. Prescriptions: New ketorolac 10 mg tablet 10 mg PO QID PRN (Reason: pain) 5 Days Qty: 20 0RF Rx Instructions: received 30mg IM in the ED No Action Humira(CF) 40 mg/0.4 mL syringe kit See Rx Instructions subcut .COMPLEX Qty: 2 2RF Rx Instructions: inject one - 40 mg/0.4 mL syringe every 2 weeks subcut hydroxychloroquine 200 mg tablet 300 mg PO DAILY Qty: 135 0RF pregabalin 150 mg capsule 1 cap PO BID methocarbamol 750 mg tablet 750 mg PO BEDTIME PRN (Reason: muscle spasm) Qty: 14 0RF triamcinolone acetonide 0.1 % cream 1 appl topical BID 10 Days Qty: 30 0RF pregabalin 25 mg capsule 25 mg PO BID carbamazepine 200 mg tablet 400 mg PO BID prednisone 10 mg tablet See Rx Instructions PO .COMPLEX Qty: 51 0RF Rx Instructions: Take 3 tabs by mouth once daily with breakfast for 1 week, then 2 tabs daily for 1 week then stay on 1 tab daily until next visit Interventions: ED Discharge Assessment Last Done: 08/29/23 17:56 Discharge Date/Time: 08/29/23 17:57 Print Language: American
[2023-08-29 12:39] LABS: Appearance Urine Clear; Color Urine Yellow; Glucose Urine UA Negative (Negative); Leukocyte Esterase Urine Negative (Negative); Nitrite Urine Negative (Negative); Urine Blood Negative (Negative); Urine Ketones Negative (Negative); Urine Protein Negative (Neg-Trace)
[2023-08-29 14:25] VITALS: BP 133/72; PULSE 77; RESP 18; TEMP 36.6; O2SAT 96
[2023-08-29] MEDS: Ketorolac Tromethamine 30 MG/ML VIAL IM (16:08)
[2023-08-29] MEDS: predniSONE 20 MG TABLET PO (16:23)
[2023-08-29 17:20] VITALS: BP 150/72; PULSE 70; RESP 18; TEMP 36.6; O2SAT 100
== END 2023-08-29 17:57 | disposition home or self-care (01) ==
PROVIDERS: Nurse Practitioner Family; Emergency Provider Emergency Medicine; PCP Internal Medicine
DX: M16.11 Unilateral primary osteoarthritis, right hip (principal); M25.551 Pain in right hip
CPT/HCPCS: 73502; 81003; 96372; 99283; 99284; J1885

== ENCOUNTER 2023-09-03 10:07 | Outpatient (AMB) | payer OTHER, SELFPAY ==
--- NOTE | 2023-09-03 10:24 | MHC.OFFVIS ---
Intake Intake Visit Reasons: New Prob- right hip pain Intake Note: Day is a 67 year old female who presents today for a new problem visit with complaints of right hip pain. Pain has been ongoing for about 6 month now, pain is felt in the groin. Denies injury. Mentions pain in the right side of the lower back that radiates to the leg, she was seen with Pain MGMT and Rheumatology. Had injection with Pain Mgmt that was not helpful and she was told to follow up with an ortho doctor. Allergies No Known Allergies [No Known Allergies*] Allergy (Verified 08/29/23 11:48) HPI New Prob- right hip pain HPI Details Day is a 67 year old woman who returns to discuss her right hip OA. She complains of pain with daily activity, worse with walking or using stairs. She localizes this pain to her groin. She also complains of worsening right-sided LBP, which radiates down her leg. This seems to be her primary complaint of pain today. She follows with Pain Management for multiple pain complaints. She received a right hip back injection on 05/16/23, with good relief immediately following but temporary. She has a SPRINT device implanted to help with her left knee pain. [facility] Medical History Positional lightheadedness Lumbago with sciatica, right side Recurrent kidney stones Sleep apnea Renal calculi Splenic artery aneurysm Shoulder pain, right Low back pain at multiple sites Varices of other sites Kidney stone on left side Lumbago with sciatica, left side Trigeminal neuralgia of right side of face Seronegative rheumatoid arthritis Nephrolithiasis Loose right total knee arthroplasty Gastroesophageal reflux disease Hiatal hernia Tailor's bunion of left foot Fibromyalgia Osteoarthritis Impaired fasting glucose Insomnia Cervical spondylosis without myelopathy Autoimmune urticaria Morbid obesity due to excess calories Surgical History History of esophagogastroduodenoscopy (EGD) History of colonoscopy History of arthroscopy of right shoulder History of laparoscopic cholecystectomy Status post laser lithotripsy of ureteral calculus History of bunionectomy of left great toe History of cranioplasty History of shoulder surgery Status post right knee replacement Family History Father Emphysema of lung Mother Hypertension Maternal Grandmother No problems noted. Maternal Grandfather No problems noted. Paternal Grandmother No problems noted. Paternal Grandfather No problems noted. Maternal Aunt Diabetes Sister No problems noted. Son No problems noted. Daughter No problems noted. 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) Alcohol intake: never Patient Tobacco Use Status: Never used Tobacco e-Cigarette/Vaping Use: Never Used service: No Current occupational status: unemployed Current occupation: rt handed Cognitive needs: No Hearing needs: No Vision needs: No Review of Systems Const All systems reviewed & are unremarkable except as noted in HPI and below Physical Exam Const General: no acute distress, alert and awake Orientation/consciousness: patient oriented x3 HEENT Head: Yes normocephalic and Yes atraumatic Eyes EOM: EOMs intact bilaterally Resp Effort & Inspection: normal respiratory effort and able to speak in complete sentences Cardio Jugular venous distension: no JVD Skin General skin exam: turgor normal Rashes: no rashes Neuro General: patient oriented x3 Extrem Other: Right Hip: + Impingement test + trendelenberg gait Psych Appearance: grossly normal Affect: normal affect Attitude: cooperative Results Reviewed Results Reviewed: I personally reviewed relevant radiographs. Right hip OA Appropriate alignment of the bilateral total knee arthroplasties, without evidence of complications. Moderate right hip OA Assessment & Plan Assessment & Plan (1) Osteoarthritis of right hip: Code(s): M16.11 - Unilateral primary osteoarthritis, right hip Plan: This is a 67 year old woman with right hip OA, though her primary complaint is of right-sided lumbosacral pain. She has pain with daily activity, worse with ambulation, climbing in/out of a car, or using stairs. Her pain localizes to her groin and she has a hx of relief from an arthrogram done on 05/16/23. I discussed her diagnosis and treatment options. She will work on gait and activity modification. Surgery not currently indicated. (2) Lumbago with sciatica, right side: Code(s): M54.41 - Lumbago with sciatica, right side Plan: Pain in lower back which radiates down her right leg. She denies any numbness, tingling, or burning. I recommend she continue to follow with Pain Management for treatment. (3) Fibromyalgia: Code(s): M79.7 - Fibromyalgia Plan Scribed for Peter Matos MD by Beau Moreno, medical engineer, on 09/03/23 at 10:25 AM, EST. Coding Level of Care Code Est Pt Level 4 (42828) Diagnoses Osteoarthritis of right hip M16.11 Lumbago with sciatica, right side M54.41 Fibromyalgia M79.7
== END 2023-09-03 11:07 | disposition home or self-care (01) ==
PROVIDERS: PCP Internal Medicine; Visit Provider Orthopaedic Surgery
DX: M16.11 Unilateral primary osteoarthritis, right hip (principal); M54.41 Lumbago with sciatica, right side; M79.7 Fibromyalgia
CPT/HCPCS: 99214

== ENCOUNTER → 2023-09-03 10:07 | Outpatient (BNVA) | payer OTHER, SELFPAY | PROVIDERS: PCP Internal Medicine; Visit Provider Orthopaedic Surgery | DX: M16.11 Unilateral primary osteoarthritis, right hip (principal); M54.41 Lumbago with sciatica, right side; M79.7 Fibromyalgia | CPT/HCPCS: 99212 ==

== ENCOUNTER 2023-09-18 08:19 | Outpatient (AMB) | payer OTHER, SELFPAY ==
--- NOTE | 2023-09-18 08:21 | MHC.OFFVIS ---
Intake Vital Signs 09/18/23 08:22 Height 5 ft 1 in Weight 173 lb 15.115 oz BMI 32.9 BP 132/64 Blood Pressure Location Lt brachial Position Sitting Temp 97 F Temp Source Skin Intake Visit Reasons: RA Intake Note: Patient presents today to follow up on RA. MRI ankle ordered by pain management has not been completed. Softball Player Required: Yes Softball Player Language: Mosaic Technician Name: Daniel [id number] Accompanied by: Self / Same As Patient Allergies No Known Allergies [No Known Allergies*] Allergy (Verified 09/18/23 08:22) Medication List - Last Reconciled 09/18/23 by Guillermo Lakhani MD adalimumab (Humira(CF)) inject one - 40 mg/0.4 mL syringe every 2 weeks subcut carbamazepine 400 mg PO BID diclofenac sodium 1% topical hydroxychloroquine 300 mg (1.5 x 200 mg) PO DAILY ketorolac 10 mg PO QID PRN 5 days meloxicam 15 mg PO QAM pregabalin 1 cap PO BID pregabalin 25 mg PO BID triamcinolone acetonide 0.1% 1 appl topical BID 10 days HPI HPI Comments History of Present Illness Details This is a 67-year-old female with a past medical history of seronegative rheumatoid arthritis who presents for follow-up. On Humira 40 mg every other week and hydroxychloroquine 300 mg daily. A few months ago patient bumped the back of right ankle against a shopping cart. She was evaluated by a burglar alarm inspector and had an ultrasound exam and the steroid injection which did not provide much relief according to patient. She was then evaluated by Pain Management and an ankle MRI was ordered to evaluate for Achillis tendinopathy. I prescribed prednisone taper a month ago, patient stated that it did not provide any improvement. It could not be completed as patient has splint device for her left knee pain by Pain Management. She was evaluated by [facility] for right Achillis tendonitis and her right leg was placed in a boot. She has A follow-up appointment on September 27. REPLACED BY [facility] Medical History Positional lightheadedness Lumbago with sciatica, right side Recurrent kidney stones Sleep apnea Renal calculi Splenic artery aneurysm Shoulder pain, right Low back pain at multiple sites Varices of other sites Kidney stone on left side Lumbago with sciatica, left side Trigeminal neuralgia of right side of face Seronegative rheumatoid arthritis Nephrolithiasis Loose right total knee arthroplasty Gastroesophageal reflux disease Hiatal hernia Tailor's bunion of left foot Fibromyalgia Osteoarthritis Impaired fasting glucose Insomnia Cervical spondylosis without myelopathy Autoimmune urticaria Morbid obesity due to excess calories Surgical History History of esophagogastroduodenoscopy (EGD) History of colonoscopy History of arthroscopy of right shoulder History of laparoscopic cholecystectomy Status post laser lithotripsy of ureteral calculus History of bunionectomy of left great toe History of cranioplasty History of shoulder surgery Status post right knee replacement Family History Father Emphysema of lung Mother Hypertension Maternal Grandmother No problems noted. Maternal Grandfather No problems noted. Paternal Grandmother No problems noted. Paternal Grandfather No problems noted. Maternal Aunt Diabetes Sister No problems noted. Son No problems noted. Daughter No problems noted. 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) Alcohol intake: never Patient Tobacco Use Status: Never used Tobacco e-Cigarette/Vaping Use: Never Used service: No Current occupational status: unemployed Current occupation: rt handed Cognitive needs: No Hearing needs: No Vision needs: No Review of Systems Musc Reports arthralgias and Reports stiffness Physical Exam Vital Signs: Last Vital Signs Temp 97 F 09/18/23 08:22 BP 132/64 09/18/23 08:22 BMI result Body Mass Index 32.9 Const General: cooperative, healthy appearing and comfortable Nutritional Appearance: obese Orientation/consciousness: patient oriented x3 Limitations: no limitations HEENT Head: Yes normocephalic and Yes atraumatic Mouth: moist mucous membranes Resp Effort & Inspection: normal respiratory effort and able to speak in complete sentences Auscultation: clear to auscultation bilaterally Cardio Rate: regular rate Neuro General: patient oriented x3 Extrem Other: No active synovitis Right leg in a boot Results Reviewed Results Reviewed: 06/21/23: XR KNEE, LEFT. XR KNEE AP STANDING FINDINGS: Prosthetic components of the bilateral total knee arthroplasties are appropriately aligned without periprosthetic fracture or abnormal lucency. No component migration. No left knee joint effusion is presently seen. IMPRESSION: Appropriate alignment of the bilateral total knee arthroplasties, without evidence of complications. 06/18/23: XR FOOT, RIGHT FINDINGS: No acute fracture or dislocation. Joint space narrowing with marginal osteophytes at the 1st metatarsophalangeal joint and hallux sesamoids, unchanged. Plantar and dorsal calcaneal spurs are redemonstrated. Dystrophic calcification associated with the distal Achilles tendon has slightly increased, likely indicating chronic tendinopathy. IMPRESSION: 1. [id number] degenerative arthritis at the 1st metatarsophalangeal joint and hallux sesamoids, unchanged. 2. Plantar and dorsal calcaneal spurs, unchanged. 3. Dystrophic calcification associated with the distal Achilles tendon has slightly increased, likely indicating chronic tendinopathy. Assessment & Plan Assessment & Plan (1) Seronegative rheumatoid arthritis: Comment: Seronegative RA diagnosed in [place]. Evaluated [facility] 2007 - has been on Plaquenil 200 mg BID and Enbrel weekly since then. MTX dates unknown. ENbrel DC 05/30 ineffective Humira 05/30 Code(s): M06.00 - Rheumatoid arthritis without rheumatoid factor, unspecified site Plan: This is a 67-year-old female with seronegative RA returns for follow-up. On Humira 40 mg every other week and hydroxychloroquine 300 mg daily I do not see any active synovitis on exam. Continue current meds Labs before next visit in 3 months (2) Right Achilles tendinitis: Code(s): M76.61 - Achilles tendinitis, right leg Plan: Follow-up with orthopedics (3) Long-term use of hydroxychloroquine: Code(s): Z79.899 - Other longshore equipment operator (current) drug therapy Plan: Advised patient to follow-up regularly with Ophthalmology. Will request records from patient's diamond wheel molder Dr. Agustin Plan I spent 30 minutes reviewing patient's chart, evaluating patient, placing orders, counseling patient and documenting in the chart Orders: Orders C Reactive Protein 3 Months M06.00 - Rheumatoid arthritis without rheumatoid factor, unspecified site Erythrocyte Sedimentation Rate 3 Months M06.00 - Rheumatoid arthritis without rheumatoid factor, unspecified site Complete Blood Count Auto Diff 3 Months M06.00 - Rheumatoid arthritis without rheumatoid factor, unspecified site Comprehensive Met. Panel 3 Months M06.00 - Rheumatoid arthritis without rheumatoid factor, unspecified site Coding Level of Care Code Est Pt Level 4 (60079) Diagnoses Seronegative rheumatoid arthritis M06.00 Right Achilles tendinitis M76.61 Long-term use of hydroxychloroquine Z79.899
[2023-09-18 08:22] VITALS: BP 132/64; TEMP 36.1; BMI 32.9
== END 2023-09-18 08:46 | disposition home or self-care (01) ==
PROVIDERS: PCP Internal Medicine; Visit Provider Student in an Organized Health Care Education/Training Program
DX: M06.00 Rheumatoid arthritis without rheumatoid factor, unspecified site (principal); M76.61 Achilles tendinitis, right leg; Z79.899 Other long term (current) drug therapy
CPT/HCPCS: 99214

== ENCOUNTER → 2023-09-18 08:19 | Outpatient (BNVA) | payer OTHER, SELFPAY | PROVIDERS: PCP Internal Medicine; Visit Provider Student in an Organized Health Care Education/Training Program | DX: M06.00 Rheumatoid arthritis without rheumatoid factor, unspecified site (principal); M76.61 Achilles tendinitis, right leg; Z79.899 Other long term (current) drug therapy | CPT/HCPCS: 99212 ==

== ENCOUNTER 2023-10-05 10:31 | Outpatient (REF) | payer OTHER, SELFPAY ==
[2023-10-05 13:09] LABS: Vitamin D 25-OH Total 20.9 ng/mL (>30)
== END 2023-10-05 10:32 | disposition home or self-care (01) ==
LOC: HO.LAB 10:31
PROVIDERS: Absent Provider Student in an Organized Health Care Education/Training Program; PCP Internal Medicine; Visit Provider Nurse Practitioner Family
DX: Z00.01 Encounter for general adult medical examination with abnormal findings (principal); N20.0 Calculus of kidney; M79.7 Fibromyalgia; Z78.0 Asymptomatic menopausal state; Z79.899 Other long term (current) drug therapy
CPT/HCPCS: 36415; 81003; 82306; 99212

== ENCOUNTER 2023-10-05 10:31 | Outpatient (AMB) | payer MEDICARE, MEDICAID, SELFPAY ==
--- NOTE | 2023-10-05 10:32 | A.OFFVIS_ITS ---
Intake Intake Visit Reasons: 1yr follow up/KUB Intake Note: Patient is present for follow up Nephrolithiasis/KUB (imaging 05/23/23) Urology Medication: none Blood Thinner: None Korean Speaking Manager Vehicle Required: Yes Manager Vehicle Name: MIKAELA ACKERMANASIYA Accompanied by: Self / Same As Patient Allergies No Known Allergies [No Known Allergies*] Allergy (Verified 10/05/23 10:53) Medication List - Last Reconciled 10/05/23 by TIAN Khan carbamazepine 400 mg PO BID diclofenac sodium 1% topical Humira(CF) (adalimumab) inject one - 40 mg/0.4 mL syringe every 2 weeks subcut NS hydroxychloroquine 300 mg (1.5 x 200 mg) PO DAILY ketorolac 10 mg PO QID PRN 5 days meloxicam 15 mg PO QAM pregabalin 1 cap PO BID pregabalin 25 mg PO BID triamcinolone acetonide 0.1% 1 appl topical BID 10 days HPI HPI Comments History of Present Illness Details Day is a pleasant 68 year old Korean speaking female patient Dr. Rouse. She has a past medical history of nephrolithiasis, sleep apnea, splenic artery aneurysm, trigeminal neuralgia, rheumatoid arthritis, GERD, hiatal hernia, fibromyalgia, osteoarthritis, insomnia, autoimmune urticaria, obesity, and cervical spondylosis. She presents to the office today for follow- up of her longstanding history of nephrolithiasis. In discussion with the patient today she reports having seeked emergency room care approximately 1 month ago for right-sided lower back pain she had been experiencing however this was related to her arthritis. She reports also having had been experiencing right-sided flank pain however this has since subsided. Most recent KUB results reviewed with the patient today. No evidence of renal calculi. She denies any bothersome urinary issues or concerns. In office urinalysis results reviewed w ith the patient today. When asked she reports to be drinking plenty of water daily and is compliant with vitamin B6. [facility] Medical History Positional lightheadedness Lumbago with sciatica, right side Recurrent kidney stones Sleep apnea Renal calculi Splenic artery aneurysm Shoulder pain, right Low back pain at multiple sites Varices of other sites Kidney stone on left side Lumbago with sciatica, left side Trigeminal neuralgia of right side of face Seronegative rheumatoid arthritis Nephrolithiasis Loose right total knee arthroplasty Gastroesophageal reflux disease Hiatal hernia Tailor's bunion of left foot Fibromyalgia Osteoarthritis Impaired fasting glucose Insomnia Cervical spondylosis without myelopathy Autoimmune urticaria Morbid obesity due to excess calories Surgical History History of esophagogastroduodenoscopy (EGD) History of colonoscopy History of arthroscopy of right shoulder History of laparoscopic cholecystectomy Status post laser lithotripsy of ureteral calculus History of bunionectomy of left great toe History of cranioplasty History of shoulder surgery Status post right knee replacement Family History Father Emphysema of lung Mother Hypertension Maternal Grandmother No problems noted. Maternal Grandfather No problems noted. Paternal Grandmother No problems noted. Paternal Grandfather No problems noted. Maternal Aunt Diabetes Sister No problems noted. Son No problems noted. Daughter No problems noted. 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) Alcohol intake: never Patient Tobacco Use Status: Never used Tobacco e-Cigarette/Vaping Use: Never Used service: No Current occupational status: unemployed Current occupation: rt handed Cognitive needs: No Hearing needs: No Vision needs: No Review of Systems Const Reports as per HPI Eyes Reports no additional complaints ENT Reports no additional complaints Card Reports as per HPI Resp Reports no additional complaints GI Reports as per HPI Reports as per HPI Musc Details: recent left knee replacement Reports as per HPI Neuro Reports as per HPI Psych Reports no additional complaints Physical Exam Const General: cooperative, healthy appearing, comfortable, no acute distress, well developed, alert and awake Orientation/consciousness: patient oriented x3 HEENT Head: Yes normal to inspection, Yes normocephalic and Yes atraumatic Eyes General: appearance normal, both eyes and all related structures Neck Neck: Yes normal visual inspection and Yes trachea midline Chest Chest palpation & inspection: normal inspection of the chest Resp Effort & Inspection: normal respiratory effort and able to speak in complete sentences Cardio Rhythm: regular rhythm GI Inspection: Yes normal to inspection General: Yes no CVA tenderness Back/Spine/Pelvis Back: no CVA tenderness Neuro General: patient oriented x3 Psych Appearance: grossly normal Mental Status: mental status grossly normal Speech and movement: Normal speech and movement present and Clear speech present Affect: normal affect Attitude: cooperative Thought process: Normal thought process present Thought content: Normal thought content present Insight: Fair insight present (Psych) Judgement: Fair judgement present (Psych) Results AMB Urinalysis, Automated UA Leukoctes 15 Jocelyn/uL Last Edit by [employer] on 10/05/23 10:58 UA Nitrite Negative Last Edit by [employer] on 10/05/23 10:58 UA Urobilinogen 0.2 mg/dL Last Edit by [employer] on 10/05/23 10:58 UA Protein 15 mg/dL Last Edit by [employer] on 10/05/23 10:58 UA pH 6.0 Last Edit by [employer] on 10/05/23 10:58 UA Blood 0 Rm/uL Last Edit by [employer] on 10/05/23 10:58 UA Specific [place] 1.030 Last Edit by [employer] on 10/05/23 10:58 UA Ketone Negative Last Edit by [employer] on 10/05/23 10:58 UA Bilirubin 0 mg/dL Last Edit by [employer] on 10/05/23 10:58 UA Glucose 0 mg/dL Last Edit by [employer] on 10/05/23 10:58 Results Reviewed Results Reviewed: Laboratory Last Values Urine pH (Auto) 6.0 10/05/23 10:35 Specific [place] (Auto) 1.030 10/05/23 10:35 Urine Protein (Auto) 15 mg/dL 10/05/23 10:35 Glucose (UA)(Auto) 0 mg/dL 10/05/23 10:35 Urine Ketones (Auto) Negative 10/05/23 10:35 Urine Blood (Auto) 0 Rm/uL 10/05/23 10:35 Urine Nitrite (Auto) Negative 10/05/23 10:35 Urine Bilirubin (Auto) 0 mg/dL 10/05/23 10:35 Urine Urobilinogen (Auto) 0.2 mg/dL 10/05/23 10:35 Leukocyte Esterase (Auto) 15 Jocelyn/uL 10/05/23 10:35 Date of Service: 05/23/23 XR KUB FINDINGS: ABDOMEN: Cholecystectomy clips in the right upper abdomen. Chronic rim calcified splenic artery aneurysm of approximately 1.3 cm size is seen in the left upper quadrant. Bowel gas pattern is normal. No evidence of renal or bladder calculi. Mild levocurvature of mildly degenerated lumbar spine. Bone island superior to left acetabulum. No suspicious osseous lesion. Mild osteoarthrosis of the hips. IMPRESSION: * No radiographic evidence of tuberculosis. * No evidence of renal stones. Assessment & Plan Assessment & Plan (1) Recurrent kidney stones: Code(s): N20.0 - Calculus of kidney Plan In office urinalysis results reviewed with the patient today; as noted above. Recent KUB results with the patient today; as noted above; stable Discussed, educated, encouraged on the importance of drinking plenty of water daily. Continue vitamin B6 daily. Continue adding 1 oz of lemon juice to water daily. Discussed obtaining CT KUB prior to next office visit given patient with previous flank pain. Patient currently denies any bothersome urinary issues or concerns. She reports to be happy with current voiding parameters. Follow-up in 3 months with imaging to be completed prior; or sooner with any issues, concerns, and or questions. Orders: Orders AMB Urinalysis Automated 10/05/23 Z13.9 - Encounter for screening, unspecified CT kidney stone 3 Months N20.0 - Calculus of kidney Patient Instructions: The patient had an opportunity to ask questions regarding the treatment plan. All questions were answered. Physical exam, labs, and imaging were discussed and reviewed in detail. As well as risks, benefits, and discussion of treatment choices. No major barriers to understanding were identified. The patient expressed understanding and agreement with the above treatment plan. The patient was made aware they should contact our office by phone for worsening of their current condition, the appearance of new symptoms, or with any questions or concerns. Compliance is encouraged with any medications and follow up testing that is ordered. It is a privilege to be allowed the opportunity to participate in? your urological care.? Again, if you have any questions or concerns If you have any questions or concerns please do not hesitate to contact me. The office is [phone]. This note is constructed using voice recognition software. While every effort has been made to ensure accuracy printed circuit board reworker errors may have been included. Yours sincerely, TIAN Khan Coding Level of Care Code Est Pt Level 3 (05080) Diagnoses Recurrent kidney stones N20.0
== END 2023-10-05 11:19 | disposition home or self-care (01) ==
PROVIDERS: Visit Provider Nurse Practitioner Family
DX: N20.0 Calculus of kidney (principal)
CPT/HCPCS: 99213

== ENCOUNTER 2023-10-18 11:28 | Outpatient (REF) | payer OTHER, SELFPAY | END 2023-10-18 11:29 | disposition home or self-care (01) | LOC: HO.MAMMO 11:28 | PROVIDERS: PCP Internal Medicine; Visit Provider Internal Medicine | DX: Z12.31 Encounter for screening mammogram for malignant neoplasm of breast (principal) | CPT/HCPCS: 77063; 77067 ==

== ENCOUNTER → 2023-10-18 11:45 | Outpatient (BNV) | payer OTHER, SELFPAY | PROVIDERS: PCP Internal Medicine; Visit Provider Radiology Diagnostic Radiology | DX: Z12.31 Encounter for screening mammogram for malignant neoplasm of breast (principal) | CPT/HCPCS: 77063; 77067 ==

== ENCOUNTER 2023-10-19 08:27 | Outpatient (AMB) | payer OTHER, SELFPAY ==
--- NOTE | 2023-10-19 08:29 | A.OFFVIS_ITS ---
Intake Vital Signs 10/19/23 08:30 Height 5 ft 1 in Weight 173 lb BMI 32.7 BP 148/66 H Blood Pressure Location Lt brachial Position Sitting Respiration 12 Pulse 84 Pulse Source Pulse Oximeter Pulse Oximetry (%) 95 Oxygen Delivery Method Room Air Intake Visit Reasons: Sprint removal/lvm Preventive Medicine Officer Required: Yes Preventive Medicine Officer Name: Kaley Allergies No Known Allergies [No Known Allergies*] Allergy (Verified 10/22/23 14:52) HPI Sprint removal/lvm HPI Details 68-year-old female who presents today to the office for a sprint removal. The patient reports significant improvement in her knee pain compared to preprocedure pain. She continues to report pain on the lateral aspect of her knee. Her anterior and medial knee pain have resolved. Past procedures: 08/22/23: Peripheral Nerve Stimulation T emporary Lead Placement, Ultrasound- Guided, Saphenous Nerve, Left: 90% relief in the 1st week. 06/15/23: Bilateral infrapatellar saphen ous nerve blocks: 75% relief for the diagnostic phase. 05/16/23: Right hip intra-articular ster oid injection: 90% relief, ongoing. [facility] Medical History Positional lightheadedness Lumbago with sciatica, right side Recurrent kidney stones Sleep apnea Renal calculi Splenic artery aneurysm Shoulder pain, right Low back pain at multiple sites Varices of other sites Kidney stone on left side Lumbago with sciatica, left side Trigeminal neuralgia of right side of face Seronegative rheumatoid arthritis Nephrolithiasis Loose right total knee arthroplasty Gastroesophageal reflux disease Hiatal hernia Tailor's bunion of left foot Fibromyalgia Osteoarthritis Impaired fasting glucose Insomnia Cervical spondylosis without myelopathy Autoimmune urticaria Morbid obesity due to excess calories Surgical History History of esophagogastroduodenoscopy (EGD) History of colonoscopy History of arthroscopy of right shoulder History of laparoscopic cholecystectomy Status post laser lithotripsy of ureteral calculus History of bunionectomy of left great toe History of cranioplasty History of shoulder surgery Status post right knee replacement Family History Father Emphysema of lung Mother Hypertension Maternal Grandmother No problems noted. Maternal Grandfather No problems noted. Paternal Grandmother No problems noted. Paternal Grandfather No problems noted. Maternal Aunt Diabetes Sister No problems noted. Son No problems noted. Daughter No problems noted. 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 Alert and oriented. Mood and affect appropriate. Follows and participates in conversation appropriately. Respiratory effort is unlabored. Able to transition from sit to stand unassisted. Ambulates with bilaterally normal heel strike and toe off. Tenderness to palpation overlying the superolateral aspect of the patella. Results Reviewed Results Reviewed: No imaging is available for review. Assessment & Plan Assessment & Plan (1) Chronic knee pain after total replacement of both knee joints: Comment: left worse than right Code(s): M25.561 - Pain in right knee; M25.562 - Pain in left knee; G89.28 - Other chronic postprocedural pain; Z96.653 - Presence of artificial knee joint, bilateral Plan Discussed nerve block injections vs. permanent nerve stimulator as a possible treatment option. We will proceed with left sided lateral superior and inferior genicular nerve blocks, ultrasound guided for left knee pain. Discussed the risks and benefits of the procedure with the patient in detail. All questions were answered. The patient is on board with the plan. Scribed for Dr. Mart by Rafael Rojas certified medical transcriptionist, on 10/19/2023. I, Dr. Mart, have personally reviewed and agree with the information entered by the scribe. Coding Level of Care Code Est Pt Level 3 (27282) Diagnoses Chronic knee pain after total replacement of both knee joints M25.561; M25.562; G89.28; Z96.653
[2023-10-19 08:30] VITALS: BP 148/66; PULSE 84; RESP 12; O2SAT 95; BMI 32.7
== END 2023-10-19 08:53 | disposition home or self-care (01) ==
PROVIDERS: PCP Internal Medicine; Visit Provider Internal Medicine
DX: M25.561 Pain in right knee (principal); M25.562 Pain in left knee; G89.28 Other chronic postprocedural pain; Z96.653 Presence of artificial knee joint, bilateral
CPT/HCPCS: 99213

== ENCOUNTER → 2023-10-19 08:27 | Outpatient (BNVA) | payer OTHER, SELFPAY | PROVIDERS: PCP Internal Medicine; Visit Provider Internal Medicine | DX: G89.29 Other chronic pain (principal); M25.561 Pain in right knee; M25.562 Pain in left knee; Z96.653 Presence of artificial knee joint, bilateral | CPT/HCPCS: 99212 ==

== ENCOUNTER 2023-10-22 14:39 | Outpatient (AMB) | payer OTHER, SELFPAY ==
[2023-10-22 14:52] VITALS: BP 128/62; PULSE 81; RESP 12; BMI 32.7
--- NOTE | 2023-10-22 14:52 | A.OFFVIS_ITS ---
Intake Vital Signs 10/22/23 14:52 Height 5 ft 1 in Weight 173 lb BMI 32.7 BP 128/62 Blood Pressure Location Lt brachial Position Sitting Respiration 12 Pulse 81 Pulse Source Pulse Oximeter Intake Visit Reasons: LEFT GNB INJECTION Allergies No Known Allergies [No Known Allergies*] Allergy (Verified 10/22/23 14:52) HPI LEFT GNB INJECTION HPI Details 68-year-old female who presents today to the office for a left GNB injections. Denies any recent cough, cold, infection, fever or other significant changes in medical history since last office visit. Past procedures: 08/22/23: Peripheral Nerve Stimulation T emporary Lead Placement, Ultrasound- Guided, Saphenous Nerve, Left: 90% relief in the 1st week. 06/15/23: Bilateral infrapatellar saphen ous nerve blocks: 75% relief for the diagnostic phase. 05/16/23: Right hip intra-articular ster oid injection: 90% relief, ongoing [facility] Medical History Positional lightheadedness Lumbago with sciatica, right side Recurrent kidney stones Sleep apnea Renal calculi Splenic artery aneurysm Shoulder pain, right Low back pain at multiple sites Varices of other sites Kidney stone on left side Lumbago with sciatica, left side Trigeminal neuralgia of right side of face Seronegative rheumatoid arthritis Nephrolithiasis Loose right total knee arthroplasty Gastroesophageal reflux disease Hiatal hernia Tailor's bunion of left foot Fibromyalgia Osteoarthritis Impaired fasting glucose Insomnia Cervical spondylosis without myelopathy Autoimmune urticaria Morbid obesity due to excess calories Surgical History History of esophagogastroduodenoscopy (EGD) History of colonoscopy History of arthroscopy of right shoulder History of laparoscopic cholecystectomy Status post laser lithotripsy of ureteral calculus History of bunionectomy of left great toe History of cranioplasty History of shoulder surgery Status post right knee replacement Family History Father Emphysema of lung Mother Hypertension Maternal Grandmother No problems noted. Maternal Grandfather No problems noted. Paternal Grandmother No problems noted. Paternal Grandfather No problems noted. Maternal Aunt Diabetes Sister No problems noted. Son No problems noted. Daughter No problems noted. 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 Alert and oriented. Mood and affect appropriate. Follows and participates in conversation appropriately. Respiratory effort is unlabored. Able to transition from sit to stand unassisted. Ambulates with bilaterally normal heel strike and toe off. Superolateral parapatellar tenderness on the left side. Office Procedures Nerve Block Details: Left Genicular Nerves, ultrasound guided - superior lateral genicular nerve block After obtaining written consent, pre-procedure blood pressure and heart rate were stable and recorded in the nursing record. The patient was placed supine on the fluoroscopy table. The area overlying the peripheral nerves was widely prepped with chloraprep, allowed to dry. Using ultrasound, the appropriate landmarks were identified. A 25 gauge 1.5 inch needle was advanced under ultrasound guidance to the appropriate landmark of the left superolateral genicular nerve. Aspiration was negative for heme and synovial fluid. 0.5 cc of ropivacaine 0.5% was injected around the targeted nerve. The needle was removed, skin cleansed and a sterile bandage was applied. The patient tolerated the procedure well and no complications were encountered. Following the procedure the patient's vital signs were stable. The patient was discharged home in good condition with post-procedural instructions. Time Out: Immediately prior to the procedure, the following was verbally confirmed that there is a signed consent form and that the correct patient, planned procedure, site and side are consistent with documentation and that necessary equipment and/or blood products are available prior to the start of the case. Complications: none EBL: <5 cc An ultrasound image of the injection was taken and stored in the permanent record. 63639 - Geniculate (knee) Procedure code (CPT) selection complete Results Reviewed Results Reviewed: No imaging is available for review. Assessment & Plan Assessment & Plan (1) Chronic knee pain after total replacement of both knee joints: Comment: left worse than right Code(s): M25.561 - Pain in right knee; M25.562 - Pain in left knee; G89.28 - Other chronic postprocedural pain; Z96.653 - Presence of artificial knee joint, bilateral Plan Patient is status post diagnostic block of the left superolateral genicular nerve, ultrasound guided. Patient tolerated procedure well and was discharged home in stable condition with discharge instructions. All questions were answered. If she has a good response to today's intervention, we will consider a radiofrequency ablation of the superolateral genicular nerve on the left side. Scribed for Dr. Mart by Rafael Rojas, biomedical engineering supervisor, on 10/22/2023. I, Dr. Mart, have personally reviewed and agree with the information entered by the scribe. Coding Level of Care Code Procedure Only Diagnoses Chronic knee pain after total replacement of both knee joints M25.561; M25.562; G89.28; Z96.653 CPT Codes Nerve Block - Nerve Block 8: 42141 - Geniculate (knee) ([id number])
== END 2023-10-22 15:24 | disposition home or self-care (01) ==
PROVIDERS: PCP Internal Medicine; Visit Provider Internal Medicine
DX: M25.562 Pain in left knee (principal)
CPT/HCPCS: 64454

== ENCOUNTER → 2023-10-22 14:39 | Outpatient (BNVA) | payer OTHER, SELFPAY | PROVIDERS: PCP Internal Medicine; Visit Provider Internal Medicine | DX: M25.561 Pain in right knee (principal); M25.562 Pain in left knee; G89.29 Other chronic pain; Z96.653 Presence of artificial knee joint, bilateral | CPT/HCPCS: 64454; J0665 ==

== ENCOUNTER 2023-11-16 14:33 | Outpatient (REF) | payer OTHER, SELFPAY ==
--- NOTE | ~2023-11-16 | CT_ITS ---
STUDY PERFORMED: CT ABDOMEN AND PELVIS WITHOUT CONTRAST HISTORY: Calculus of kidney. DESCRIPTION: Routine abdomen and pelvis CT protocol without contrast was performed. Coronal and sagittal reformatted images. DOSE LOWERING TECHNIQUES: This CT examination was performed using dose optimization techniques as appropriate, variously including the following: - Automated exposure control - Adjustment of mA and/or kV according to patient size (this includes techniques or standardized protocols for targeted exams where dose is matched to indication/reason for exam; i.e. extremities or head) - Use of iterative reconstruction technique DOSE LENGTH PRODUCT: 382.65 mGy-cm COMPARISON: CT abdomen 02/01/2023. FINDINGS: Lung Bases: No suspicious lung nodules. Liver, Gallbladder and Biliary Tree: The liver appears normal in attenuation. No discrete liver mass. No biliary ductal dilatation. Cholecystectomy. Pancreas: No discrete pancreatic mass or pancreatic ductal dilatation. Spleen: Normal size spleen. Stable-appearing peripherally calcified splenic artery aneurysms measuring up to 1.2 cm. Adrenal Glands: No adrenal mass. Kidneys and Ureters: The kidneys are normal in size, shape, and attenuation. No hydronephrosis, hydroureter, or calculi seen. No perinephric stranding. Bladder: Unremarkable. Gastrointestinal Tract: Small hiatal hernia. The small and large bowel are normal in caliber without evidence of obstruction. Minimal colonic diverticulosis. No acute inflammatory changes. Abdominal Wall: No significant hernia is appreciated. Lymph Nodes: No lymphadenopathy. Vascular: Normal caliber abdominal aorta with mild atherosclerosis. There is a splenorenal shunt of uncertain etiology. The liver does not appear morphologically cirrhotic and the spleen is not enlarged to suggest underlying portal hypertension. The splenic vein was patent on the CT from 03/21/2022 performed with contrast at which time the varices were also present. Pelvic Viscera: Unremarkable. Osseous Structures: Degenerative changes in the spine. CT/CT kidney stone IMPRESSION: No visible nephrolithiasis. No hydronephrosis. Spontaneous portosystemic splenorenal shunt with left upper quadrant varices of uncertain etiology. On past imaging with contrast, the splenic vein is patent. Clinical correlation for possible portal hypertension is needed although there is no evidence of morphologic cirrhosis or splenomegaly on this exam.
== END 2023-11-16 14:34 | disposition home or self-care (01) ==
LOC: HO.CT 14:33
PROVIDERS: PCP Internal Medicine; Visit Provider Nurse Practitioner Family
DX: N20.0 Calculus of kidney (principal)
CPT/HCPCS: 74176

== ENCOUNTER 2023-11-28 10:35 | Outpatient (AMB) | payer OTHER, SELFPAY ==
--- NOTE | 2023-11-28 11:03 | MHC.OFFWIV ---
Intake Vital Signs 11/28/23 11:04 Height 5 ft 1 in Weight 174 lb BMI 32.9 BP 146/70 H Blood Pressure Location Lt brachial Position Sitting Pulse 74 Pulse Source Pulse Oximeter Temp 97.7 F Temp Source Temporal Artery Scan Pulse Oximetry (%) 96 Oxygen Delivery Method Room Air Intake Visit Reasons: EP dizzy, Involuntary hand movement Intake Note: pt is her today for dizzy involuntary hand movement started 1 month ago Patient Tobacco Use Status: Never used Tobacco Allergies No Known Allergies [No Known Allergies*] Allergy (Verified 11/28/23 11:04) Do you need a note to return to daycare/school/sports/work: No HPI HPI Comments History of Present Illness Details Presents with for dizziness is interpreting for her Hx of trigeminal neuroalgia 8 years ago She has had dizziness x 1 month Has had 3 falls in the last month from this It is worsening and more constant for the last week She states she has involuntary shaking in hands The hand shaking is new x 2-3 weeks No arm movement but states it is a twist motion in hands for a few seconds and stops Occurs not everyday; but can occur 2-3 times a day She said she has mentioned it to PCP but no formal work up completed She admits to weakness in hands Denies vision changes Dizziness changing factors- Better: it is only a few seconds so doesnt note anything improve it Worse: when she stands up but can occur sitting No HT or loss of consciousness. She denies CP or SOB PFSH Medical History Positional lightheadedness Lumbago with sciatica, right side Recurrent kidney stones Sleep apnea Renal calculi Splenic artery aneurysm Shoulder pain, right Low back pain at multiple sites Varices of other sites Kidney stone on left side Lumbago with sciatica, left side Trigeminal neuralgia of right side of face Seronegative rheumatoid arthritis Nephrolithiasis Loose right total knee arthroplasty Gastroesophageal reflux disease Hiatal hernia Tailor's bunion of left foot Fibromyalgia Osteoarthritis Impaired fasting glucose Insomnia Cervical spondylosis without myelopathy Autoimmune urticaria Morbid obesity due to excess calories Surgical History History of esophagogastroduodenoscopy (EGD) History of colonoscopy History of arthroscopy of right shoulder History of laparoscopic cholecystectomy Status post laser lithotripsy of ureteral calculus History of bunionectomy of left great toe History of cranioplasty History of shoulder surgery Status post right knee replacement Family History Father Emphysema of lung Mother Hypertension Maternal Grandmother No problems noted. Maternal Grandfather No problems noted. Paternal Grandmother No problems noted. Paternal Grandfather No problems noted. Maternal Aunt Diabetes Sister No problems noted. Son No problems noted. Daughter No problems noted. 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) Alcohol intake: never Patient Tobacco Use Status: Never used Tobacco e-Cigarette/Vaping Use: Never Used service: No Current occupational status: unemployed Current occupation: rt handed Cognitive needs: No Hearing needs: No Vision needs: No Review of Systems Const Denies body aches, Denies chills, Denies fever(s) and Reports headache(s) Eyes Denies blurry vision and Denies change in vision ENT Reports dizziness, Denies otalgia, Reports headache(s) and Denies sore throat Card Denies chest pain, Denies rapid heart rate and Denies dyspnea Resp Denies cough and Denies dyspnea GI Denies abdominal pain, Denies diarrhea and Denies vomiting Musc Reports arthralgias (osteoarthritis) Neuro Reports dizziness and Reports headache(s) Physical Exam Vital Signs: Last Vital Signs Temp 97.7 F 11/28/23 11:04 Pulse 74 11/28/23 11:04 BP 146/70 H 11/28/23 11:04 Pulse Ox 96 11/28/23 11:04 Oxygen Delivery Method Room Air 11/28/23 11:04 BMI result Body Mass Index 32.9 General: Non-toxic, NAD. Speaking full sentences. Skin: Warm dry throughout Eye: EOMI, PERRL HENT: Airway patent. Uvula midline. No pharyngeal erythema or edema. No IMPROVEMENT COORDINATOR. Bilateral canals clear. TM non-erythematous, non-bulging. No TM perforation or hemotympanum noted. Respiratory: CTA bilaterally. No wheezes, rales or rhonchi Cardiac: RRR. 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 Equal strength for dorsal and plantar flexion at ankles. Neurology: A/O x 3. CN 2-12 grossly intact. Finger to nose tracing equal. Negative pronator drift. No aphasia or facial droop. Gait without abnormality Psych: Good mood and affect Assessment & Plan Assessment & Plan (1) Dizziness: Code(s): R42 - Dizziness and giddiness Plan: Patient seen and evaluated. Dizziness has been ongoing for 1 month but worsening x 1 week No formal work up for dizziness and she has had multiple falls because of it Hands tremor now new without known origin Orthostatic vitals: laying 130/68 sitting 132/70 standing 150/70 No orthostatic hypotension on examination. Discussed with pt and that I am concerned over this new symptoms of dizziness and worsening symptoms without formal work up. Recommended go to ER for initial work up due to being unable to see PCP for a while Expect called to [facility] driving pt and feeld comfortable doing so Patient gave verbal understanding and had no additional questions or concerns at time of discharge All questions answered (2) Tremor of both hands: Code(s): R25.1 - Tremor, unspecified Plan: see above Coding Level of Care Code Est Pt Level 4 (72132) Diagnoses Dizziness R42 Tremor of both hands R25.1
[2023-11-28 11:04] VITALS: BP 146/70; PULSE 74; TEMP 36.5; O2SAT 96; BMI 32.9
== END 2023-11-28 13:59 | disposition home or self-care (01) ==
PROVIDERS: PCP Internal Medicine; Visit Provider Physician Assistant
DX: R42 Dizziness and giddiness (principal); R25.1 Tremor, unspecified
CPT/HCPCS: 99214

== ENCOUNTER 2023-11-28 12:24 | Emergency (ER) | payer OTHER, SELFPAY ==
--- NOTE | ~2023-11-28 | CT_ITS ---
EXAMINATION: CT HEAD WITHOUT CONTRAST CLINICAL INFORMATION: Dizziness COMPARISON: Previous CT of the temporal bones February 2021 and PET/CT February 2021 TECHNIQUE: Contiguous axial imaging was performed from the skull base to vertex without intravenous administration of contrast. This CT examination was performed using dose optimization techniques as appropriate, variously including the following: *Automated exposure control *Adjustment of mA and/or kV according to patient size (this includes techniques or standardized protocols for targeted exams where dose is matched to indication/reason for exam; i.e. extremities or head) *Use of iterative reconstruction technique DLP: Extensive 1 mGy-cm FINDINGS: There is no evidence of an extra-axial collection. There is no evidence of intra or extra-axial hemorrhage. The ventricles and extra-axial CSF spaces are appropriate. [place] White matter differentiation is normal. No mass, mass effect or infarct is seen. There is a right occipital bone craniotomy defect. There is left maxillary sinus disease with almost soft tissue opacification of the left maxillary sinus. Visualized paranasal sinuses, mastoid air cells are otherwise clear. Degenerative changes of the right temporomandibular joint. CT/CT head/brain wo IV con IMPRESSION: No acute intracranial findings. Left maxillary sinus disease.
--- NOTE | 2023-11-28 12:35 | ED_ITS ---
HPI - Dizziness General Chief Complaint: Dizziness Stated Complaint: dizzyness Time Seen by Provider: 11/28/23 19:11 Source: patient Mode of arrival: ambulatory Limitations: no limitations History of Present Illness HPI Narrative: Patient complaining of intermittent vertiginous feeling for last 1 month no headache felt off balance sometimes no tinnitus no fever no chills no upper respiratory symptoms never had similar symptoms in the past after arrival in the ED patient is feeling much better Related Data Home Medications Medication Instructions Recorded Confirmed pregabalin 150 mg capsule 1 cap PO BID 07/04/22 09/18/23 carbamazepine 200 mg tablet 400 mg PO BID 07/10/22 09/18/23 pregabalin 25 mg capsule 25 mg PO BID 10/05/22 09/18/23 diclofenac sodium 1 % topical gel topical 09/18/23 09/18/23 Previous Rx's Medication Instructions Recorded triamcinolone acetonide 0.1 % 1 appl topical BID 10 days #30 03/06/23 topical cream grams hydroxychloroquine 200 mg tablet 300 mg (1.5 x 200 mg) PO DAILY 07/20/23 #135 tabs Humira(CF) 40 mg/0.4 mL See Rx Instructions subcut 09/19/23 subcutaneous syringe kit .COMPLEX #2 ea (adalimumab) Allergies Allergy/AdvReac Type Severity Reaction Status Date / Time No Known Allergies Allergy Verified 11/28/23 11:04 [No Known Allergies*] Review of Systems 2 Review of Systems: Yes all other systems are reviewed and are negative [facility] Past Medical History Medical History Positional lightheadedness Lumbago with sciatica, right side Recurrent kidney stones Sleep apnea Renal calculi Splenic artery aneurysm Shoulder pain, right Low back pain at multiple sites Varices of other sites Kidney stone on left side Lumbago with sciatica, left side Trigeminal neuralgia of right side of face Seronegative rheumatoid arthritis Nephrolithiasis Loose right total knee arthroplasty Gastroesophageal reflux disease Hiatal hernia Tailor's bunion of left foot Fibromyalgia Osteoarthritis Impaired fasting glucose Insomnia Cervical spondylosis without myelopathy Autoimmune urticaria Morbid obesity due to excess calories Surgical History History of esophagogastroduodenoscopy (EGD) History of colonoscopy History of arthroscopy of right shoulder History of laparoscopic cholecystectomy Status post laser lithotripsy of ureteral calculus History of bunionectomy of left great toe History of cranioplasty History of shoulder surgery Status post right knee replacement Family History Family History Father Emphysema of lung Mother Hypertension Maternal Grandmother No problems noted. Maternal Grandfather No problems noted. Paternal Grandmother No problems noted. Paternal Grandfather No problems noted. Maternal Aunt Diabetes Sister No problems noted. Son No problems noted. Daughter No problems noted. 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) Alcohol intake: never Patient Tobacco Use Status: Never used Tobacco Smoked in Last 30 Days: No e-Cigarette/Vaping Use: Never Used Use of substances other than those prescribed or required for medical reasons: No Advance Directives: No Advance Directives Information Provided: No service: No Current occupational status: unemployed Current occupation: rt handed Cognitive needs: No Hearing needs: No Vision needs: No Physical Exam 2 Vital Signs: Vital Signs: Last Vital Signs Temp 98.7 F 11/28/23 12:36 Pulse 82 11/28/23 19:00 Resp 18 11/28/23 12:36 BP 136/70 11/28/23 19:00 Pulse Ox 98 11/28/23 12:36 O2 Del Method Room Air 11/28/23 12:36 BMI result Body Mass Index 32.9 Appearance: Alert. Oriented X3. No acute distress. Eyes: PERRLA, No Nystagmus ,dizziness on turning head to the left side ENT: Pharynx normal. Oral Mucosa moist tympanic membrane intact Neck: Normal inspection. Neck supple. CVS: Normal heart rate and rhythm. Pulses normal. Respiratory: No respiratory distress. Equal air entry bilateral, no wheezing/rales/rhonchi Abdomen: Soft and nontender. Bowel sounds are present, no mass palpable, no CVA tenderness Skin: Skin warm and dry. Normal skin color. Normal skin turgor. Extremities: No lower extremity edema. No calf tenderness Neuro: Oriented X 3. No motor deficit. No sensory deficit.No cerebellar signs , cranial nerves II-XII intact Course Course Course Narrative: RME: 68 year-old F w/ PMHx fibromyalgia, osteoarthritis, sleep apnea, renal stones, sciatica, presenting to the ED c/o dizziness x1 month, sent in from . States when states up feels off balance. denies MARIE, N/V, numbness/tingling. Also reports fall 3 wks ago ambulating w/steady gait EKG, Labs, UA, orthostatics ordered Full HPI, ROS and PE to be performed by primary ED provider. Medications Administered Discontinued Medications Generic Name Dose Route Start Last Admin Trade Name Freq PRN Reason Stop Dose Admin Meclizine HCl 25 mg 11/28/23 19:26 11/28/23 19:45 Meclizine Hcl 25 Mg Tablet PO 11/28/23 19:27 25 mg ONCE ONE Administration Medical Decision Making Medical Decision Making [facility] Narrative: Patient clinically with peripheral benign positional vertigo no signs of FINANCIAL ASSOCIATE involvement CT scan of the head is negative patient is feeling much better ambulatory in the steady gait no cerebellar sign. Will discharge patient home on meclizine Differential Diagnosis Differential Diagnoses: The differential diagnosis associated with the presentation includes Posterior circulation CVA/benign positional vertigo Lab Data [facility] Lab Attestation statement: I reviewed the patient's lab results. 11/28/23 13:29 11/28/23 13:29 Labs: Lab Results 11/28/23 11/28/23 Range/Units 13:29 19:29 WBC 4.9 (4.8-10.8) X10*3/uL RBC 4.20 (4.20-5.50) X10*6/uL Hgb 13.4 (12.0-16.0) g/dl Hct 40.1 (37.0-47.0) % MCV 95.5 (80.0-98.0) fL MCH 31.9 (27.0-33.0) pg MCHC 33.4 (31.0-35.0) g/dl RDW 13.5 (11.0-16.0) % Plt Count 156 L (160-400) X10*3/uL MPV 9.8 (9.4-12.3) fL Immature Gran % (Auto) 0.2 (0.0-0.4) % Neut % (Auto) 46.2 (45-73) % Lymph % (Auto) 40.0 (20-40) % [place] % (Auto) 11.0 (2-11) % Eos % (Auto) 1.8 (0-4) % Baso % (Auto) 0.8 (0-2) % Lymph # (Auto) 2.0 (1.2-4.9) X10*3/uL [place]ett # (Auto) 0.5 (0.1-1.2) X10*3/uL Eos # (Auto) 0.1 (0.0-0.4) X10*3/uL Baso # (Auto) 0.0 (0.0-0.2) X10*3/uL Abs Immat Gran (auto) 0.01 (0.00-0.03) X10*3/uL Absolute Neuts (auto) 2.3 (2.0-8.3) x10*3/uL Absolute Nucleated RBC 0.000 (0.0-0.012) X10*3/uL Nucleated RBC % (auto) 0.0 (0.0-0.2) /100WBC PT 11.8 (11.1-13.3) SEC INR 1.0 (0.9-1.1) Sodium 143 (135-145) mmol/L Potassium 4.6 (3.3-5.1) mmol/L Chloride 109 H (96-108) mmol/L Carbon Dioxide 28 (22-29) mmol/L Anion Gap 11 L (12-20) BUN 13 (9-16) mg/dL Creatinine 0.77 (0.5-1.4) mg/dL Estim Creat Clear Calc 68.4 Estimated GFR > 60 Random Glucose 91 (60-115) mg/dL Calcium 9.1 (8.4-10.2) mg/dL Magnesium 2.0 (1.6-2.6) mg/dL Total Bilirubin 0.3 (0.0-1.0) mg/dL Direct Bilirubin 0.1 (0.0-0.5) mg/dL AST 18 (5-31) U/L ALT 19 (0-31) U/L Alkaline Phosphatase 62 (39-117) U/L Troponin I High Sens < 2.7 (<3.5-17.0) ng/L Total Protein 7.1 (6.5-8.0) g/dL Albumin 3.7 (3.5-5.0) g/dL Urine Color Yellow Urine Appearance Clear Urine pH 7.5 (5.0-9.0) Ur Specific [place] 1.010 (1.005-1.025) Urine Protein Negative (Neg-Trace) mg/dL Urine Glucose (UA) Negative (Negative) mg/dL Urine Ketones Negative (Negative) mg/dL Urine Blood Negative (Negative) Urine Nitrite Negative (Negative) Ur Leukocyte Esterase Negative (Negative) Influenza Type A (PCR) NEGATIVE (Negative) Influenza Type B (PCR) NEGATIVE (Negative) RSV RNA Qual (PCR) NEGATIVE (Negative) SARS-CoV-2 RNA (RT-PCR) NEGATIVE (Negative) Discharge Plan Discharge Clinical Impression: Benign paroxysmal positional vertigo Patient Disposition: Home, Self-Care Instructions: Benign Paroxysmal Positional Vertigo (ED) Additional Instructions: Care and cautions as advised Take meclizine 1 tab every 8 hours as needed for dizziness Follow-up with PCP Cuidados y precauciones seg?n lo recomendado. [place] 1 pastilla de meclizina cada 8 horas seg?n sea necesario para los mareos. Seguimiento con PCP Prescriptions: No Action hydroxychloroquine 200 mg tablet 300 mg PO DAILY Qty: 135 0RF Humira(CF) 40 mg/0.4 mL syringe kit See Rx Instructions subcut .COMPLEX Qty: 2 2RF Rx Instructions: inject one - 40 mg/0.4 mL syringe every 2 weeks subcut pregabalin 150 mg capsule 1 cap PO BID triamcinolone acetonide 0.1 % cream 1 appl topical BID 10 Days Qty: 30 0RF pregabalin 25 mg capsule 25 mg PO BID carbamazepine 200 mg tablet 400 mg PO BID diclofenac sodium 1 % gel topical Print Language: Burmese
[2023-11-28 12:36] VITALS: BP 130/80; PULSE 80; RESP 18; TEMP 37.1; O2SAT 98; BMI 32.9
--- NOTE | 2023-11-28 12:39 | ECG_ITS ---
Test Reason : dizziness Blood Pressure : / mmHG Vent. Rate : 073 BPM Atrial Rate : 073 BPM P-R Int : 148 ms QRS Dur : 084 ms QT Int : 374 ms P-R-T Axes : 048 013 011 degrees QTc Int : 412 ms Normal sinus rhythm Normal ECG When compared with ECG of 21-JUN-2022 11:08, No significant change was found Referred By: Lurdes Porter Electronically Signed By:CORNELIA MOJICA MD
[2023-11-28 13:34] LABS: MANUAL DIFF FLAG NO
[2023-11-28 13:38] LABS: Basophils Percent Auto 0.8 % (0-2); Eosinophils Absolute Auto 0.1 X10*3/uL (0.0-0.4); Eosinophils Percent Auto 1.8 % (0-4); Hematocrit 40.1 % (37.0-47.0); Hemoglobin 13.4 g/dl (12.0-16.0); Imm Gran Abs Auto 0.01 X10*3/uL (0.00-0.03); Imm Gran Pct Auto 0.2 % (0.0-0.4); Mean Corpuscular HGB Conc 33.4 g/dl (31.0-35.0); Mean Corpuscular Hemoglobin 31.9 pg (27.0-33.0); Mean Corpuscular Volume 95.5 fL (80.0-98.0); Mean Platelet Volume 9.8 fL (9.4-12.3); Monocytes Absolute Auto 0.5 X10*3/uL (0.1-1.2); Neutrophils Absolute Auto 2.3 x10*3/uL (2.0-8.3); Neutrophils Percent Auto 46.2 % (45-73); Platelet Count 156 X10*3/uL (160-400); Red Cell Distribution Width 13.5 % (11.0-16.0); White Blood Count 4.9 X10*3/uL (4.8-10.8)
[2023-11-28 13:41] LABS: Prothrombin Time 11.8 SEC (11.1-13.3)
[2023-11-28 14:02] LABS: Alanine Aminotransferase 19 U/L (0-31); Albumin Level 3.7 g/dL (3.5-5.0); Alkaline Phosphatase 62 U/L (39-117); Anion Gap 11 (12-20); Aspartate Amino Transferase 18 U/L (5-31); Bilirubin Direct 0.1 mg/dL (0.0-0.5); Bilirubin Total 0.3 mg/dL (0.0-1.0); Blood Urea Nitrogen 13 mg/dL (9-16); Calcium 9.1 mg/dL (8.4-10.2); Carbon Dioxide 28 mmol/L (22-29); Chloride 109 mmol/L (96-108); Creatinine Clr Calc Pharmacy 68.4; Estimated Glomerular Filt Rate > 60; Glucose Random 91 mg/dL (60-115); Potassium 4.6 mmol/L (3.3-5.1); Sodium 143 mmol/L (135-145); Total Protein 7.1 g/dL (6.5-8.0)
[2023-11-28 14:09] LABS: Troponin-I High Sensitivity < 2.7 ng/L (<3.5-17.0)
[2023-11-28 14:45] LABS: Influenza A PCR NEGATIVE (Negative); Influenza B PCR NEGATIVE (Negative); Resp Syncy Virus RNA Qual PCR NEGATIVE (Negative); SARS COV2 PCR INHOUSE NEGATIVE (Negative)
[2023-11-28 18:58] VITALS: BP 124/67; BP 135/60; PULSE 78; PULSE 79
[2023-11-28 19:00] VITALS: BP 136/70; PULSE 82
[2023-11-28 19:37] LABS: Appearance Urine Clear; Color Urine Yellow; Glucose Urine UA Negative (Negative); Leukocyte Esterase Urine Negative (Negative); Nitrite Urine Negative (Negative); PH 7.5 (5.0-9.0); Urine Blood Negative (Negative); Urine Ketones Negative (Negative); Urine Protein Negative (Neg-Trace)
[2023-11-28] MEDS: Meclizine HCl 25 MG TABLET PO (19:45)
== END 2023-11-28 19:50 | disposition home or self-care (01) ==
PROVIDERS: Physician Assistant; Emergency Provider Internal Medicine; PCP Internal Medicine
DX: H81.12 Benign paroxysmal vertigo, left ear (principal); Z11.52 Encounter for screening for COVID-19; Z20.828 Contact with and (suspected) exposure to other viral communicable diseases; D69.6 Thrombocytopenia, unspecified; M06.00 Rheumatoid arthritis without rheumatoid factor, unspecified site; Z79.899 Other long term (current) drug therapy
CPT/HCPCS: 0241U; 70450; 80048; 80076; 81003; 83735; 84484; 85025; 85610; 93005; 99284

== ENCOUNTER → 2023-11-28 12:39 | Outpatient (BNV) | payer OTHER, SELFPAY | PROVIDERS: PCP Internal Medicine; Visit Provider Internal Medicine Cardiovascular Disease | DX: R42 Dizziness and giddiness (principal) | CPT/HCPCS: 93010 ==

== ENCOUNTER 2023-12-14 11:57 | Outpatient (REF) | payer MEDICARE, SELFPAY ==
[2023-12-14 12:08] LABS: MANUAL DIFF FLAG NO
[2023-12-14 12:45] LABS: Basophils Absolute Auto 0.1 X10*3/uL (0.0-0.2); Basophils Percent Auto 1.2 % (0-2); Eosinophils Absolute Auto 0.1 X10*3/uL (0.0-0.4); Eosinophils Percent Auto 1.4 % (0-4); Hematocrit 40.3 % (37.0-47.0); Hemoglobin 13.7 g/dl (12.0-16.0); Imm Gran Abs Auto 0.02 X10*3/uL (0.00-0.03); Imm Gran Pct Auto 0.4 % (0.0-0.4); Lymphocytes Absolute Auto 2.6 X10*3/uL (1.2-4.9); Lymphocytes Percent Auto 46.2 % (20-40); Mean Corpuscular Hemoglobin 32.5 pg (27.0-33.0); Mean Corpuscular Volume 95.5 fL (80.0-98.0); Mean Platelet Volume 9.8 fL (9.4-12.3); Monocytes Absolute Auto 0.5 X10*3/uL (0.1-1.2); Monocytes Percent Auto 8.7 % (2-11); Neutrophils Absolute Auto 2.4 x10*3/uL (2.0-8.3); Neutrophils Percent Auto 42.1 % (45-73); Platelet Count 201 X10*3/uL (160-400); Red Blood Count 4.22 X10*6/uL (4.20-5.50); Red Cell Distribution Width 13.4 % (11.0-16.0); White Blood Count 5.6 X10*3/uL (4.8-10.8)
[2023-12-14 13:20] LABS: Erythrocyte Sedimentation Rate 14 MM/HR (0-20)
[2023-12-14 14:00] LABS: Alanine Aminotransferase 26 U/L (0-31); Albumin Level 3.9 g/dL (3.5-5.0); Alkaline Phosphatase 65 U/L (39-117); Anion Gap 9 (12-20); Aspartate Amino Transferase 20 U/L (5-31); Bilirubin Total 0.3 mg/dL (0.0-1.0); Blood Urea Nitrogen 14 mg/dL (9-16); C Reactive Protein < 0.10 mg/dL (< or = 0.50); Carbon Dioxide 31 mmol/L (22-29); Chloride 109 mmol/L (96-108); Estimated Glomerular Filt Rate > 60; Glucose Random 90 mg/dL (60-115); Potassium 4.5 mmol/L (3.3-5.1); Sodium 144 mmol/L (135-145); Total Protein 7.2 g/dL (6.5-8.0)
== END 2023-12-14 11:58 | disposition home or self-care (01) ==
LOC: HO.LAB 11:57
PROVIDERS: PCP Internal Medicine; Visit Provider Student in an Organized Health Care Education/Training Program
DX: M06.00 Rheumatoid arthritis without rheumatoid factor, unspecified site (principal)
CPT/HCPCS: 36415; 80053; 85025; 85652; 86140

== ENCOUNTER 2023-12-18 08:48 | Outpatient (AMB) | payer MEDICARE, SELFPAY ==
[2023-12-18 08:58] VITALS: BP 114/68; PULSE 89; O2SAT 95; BMI 32.4
--- NOTE | 2023-12-18 08:58 | MHC.OFFVIS ---
Intake Vital Signs 12/18/23 08:58 Height 5 ft 1 in Weight 171 lb 4.787 oz BMI 32.4 BP 114/68 Blood Pressure Location Rt brachial Position Sitting Pulse 89 Pulse Source Pulse Oximeter Pulse Oximetry (%) 95 Oxygen Delivery Method Room Air Intake Visit Reasons: RA Intake Note: Patient last seen 09/18/23 presents today for follow up and test results. Reports seeing [facility] ortho possible hip replacement. Has visit in January R ankle pain doing PT, not getting better. L knee s/p replacement a year ago, states she has pain all the time. Saw ortho surgeon and was referred to pain mgmt. She received injections and status post diagnostic block of the left superolateral genicular nerve. Her most bothersome pain is in her L knee Rehabilitation Director Required: Yes Rehabilitation Director Language: Department Head Name: Zack [id number] Accompanied by: Self / Same As Patient Allergies No Known Allergies [No Known Allergies*] Allergy (Verified 12/18/23 09:02) Medication List - Last Reconciled 12/18/23 by Guillermo Lakhani MD carbamazepine 400 mg PO BID diclofenac sodium 1% topical Humira(CF) (adalimumab) inject one - 40 mg/0.4 mL syringe every 2 weeks subcut NS hydroxychloroquine 300 mg (1.5 x 200 mg) PO DAILY pregabalin 1 cap PO BID pregabalin 25 mg PO BID triamcinolone acetonide 0.1% 1 appl topical BID 10 days HPI HPI Comments History of Present Illness Details This is a 68-year-old female with a past medical history of seronegative rheumatoid arthritis who presents for follow-up. On Humira 40 mg every other week and hydroxychloroquine 300 mg daily. She states that she was recently evaluated by [facility]. She has multiple specialists for different joints. She stated that about a year and a half ago fell in the bathroom and she felt something change in her replaced left knee. She was evaluated by Dr. Matos and was referred to pain management. She received a nerve block which was not helpful, she was evaluated by a knee specialist at [facility] and was given a brace. She was told that corrective surgery can be considered. She was also told that she likely needs right hip replacement. She continues to have left knee pain. As well as right ankle pain and right shoulder pain. Continues to have intermittent episodes of burning pain in multiple areas in her body. [facility] Medical History Positional lightheadedness Lumbago with sciatica, right side Recurrent kidney stones Sleep apnea Renal calculi Splenic artery aneurysm Shoulder pain, right Low back pain at multiple sites Varices of other sites Kidney stone on left side Lumbago with sciatica, left side Trigeminal neuralgia of right side of face Seronegative rheumatoid arthritis Nephrolithiasis Loose right total knee arthroplasty Gastroesophageal reflux disease Hiatal hernia Tailor's bunion of left foot Fibromyalgia Osteoarthritis Impaired fasting glucose Insomnia Cervical spondylosis without myelopathy Autoimmune urticaria Morbid obesity due to excess calories Surgical History History of esophagogastroduodenoscopy (EGD) History of colonoscopy History of arthroscopy of right shoulder History of laparoscopic cholecystectomy Status post laser lithotripsy of ureteral calculus History of bunionectomy of left great toe History of cranioplasty History of shoulder surgery Status post right knee replacement Family History Father Emphysema of lung Mother Hypertension Maternal Grandmother No problems noted. Maternal Grandfather No problems noted. Paternal Grandmother No problems noted. Paternal Grandfather No problems noted. Maternal Aunt Diabetes Sister No problems noted. Son No problems noted. Daughter No problems noted. 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) Alcohol intake: never Patient Tobacco Use Status: Never used Tobacco e-Cigarette/Vaping Use: Never Used service: No Current occupational status: unemployed Current occupation: rt handed Cognitive needs: No Hearing needs: No Vision needs: No Review of Systems Musc Reports arthralgias and Reports stiffness Neuro Reports burning sensations and Reports paresthesias Physical Exam Vital Signs: Last Vital Signs Pulse 89 12/18/23 08:58 BP 114/68 12/18/23 08:58 Pulse Ox 95 12/18/23 08:58 Oxygen Delivery Method Room Air 12/18/23 08:58 BMI result Body Mass Index 32.4 Const General: cooperative, healthy appearing and comfortable Nutritional Appearance: obese Orientation/consciousness: patient oriented x3 Limitations: no limitations HEENT Head: Yes normocephalic and Yes atraumatic Mouth: moist mucous membranes Resp Effort & Inspection: normal respiratory effort and able to speak in complete sentences Auscultation: clear to auscultation bilaterally Cardio Rate: regular rate Neuro General: patient oriented x3 Extrem Other: Multiple fibromyalgia tender points Left knee warmth without swelling No swollen joints Results Reviewed Results Reviewed: 06/21/23: XR KNEE, LEFT. XR KNEE AP STANDING FINDINGS: Prosthetic components of the bilateral total knee arthroplasties are appropriately aligned without periprosthetic fracture or abnormal lucency. No component migration. No left knee joint effusion is presently seen. IMPRESSION: Appropriate alignment of the bilateral total knee arthroplasties, without evidence of complications. 06/18/23: XR FOOT, RIGHT FINDINGS: No acute fracture or dislocation. Joint space narrowing with marginal osteophytes at the 1st metatarsophalangeal joint and hallux sesamoids, unchanged. Plantar and dorsal calcaneal spurs are redemonstrated. Dystrophic calcification associated with the distal Achilles tendon has slightly increased, likely indicating chronic tendinopathy. IMPRESSION: 1. [id number] degenerative arthritis at the 1st metatarsophalangeal joint and hallux sesamoids, unchanged. 2. Plantar and dorsal calcaneal spurs, unchanged. 3. Dystrophic calcification associated with the distal Achilles tendon has slightly increased, likely indicating chronic tendinopathy. Assessment & Plan Assessment & Plan (1) Seronegative rheumatoid arthritis: Comment: Seronegative RA diagnosed in [place]. [facility] 2007 - has been on Plaquenil 200 mg BID and Enbrel weekly since then. MTX dates unknown. ENbrel DC 05/30 ineffective Humira 05/30 Code(s): M06.00 - Rheumatoid arthritis without rheumatoid factor, unspecified site Plan: This is a 67-year-old female with seronegative RA returns for follow-up. On Humira 40 mg every other week and hydroxychloroquine 300 mg daily. Doing well with no active synovitis on exam. Inflammatory markers normal Continue current meds Labs before next visit in 4 months (2) Long-term use of hydroxychloroquine: Code(s): Z79.899 - Other intermediate designer (current) drug therapy Plan: Follow-up regularly with Ophthalmology Plan I spent 30 minutes reviewing patient's chart, evaluating patient, placing orders, counseling patient and documenting in the chart Orders: Orders Complete Blood Count Auto Diff 4 Months M06.00 - Rheumatoid arthritis without rheumatoid factor, unspecified site Comprehensive Met. Panel 4 Months M06.00 - Rheumatoid arthritis without rheumatoid factor, unspecified site C Reactive Protein 4 Months M06.00 - Rheumatoid arthritis without rheumatoid factor, unspecified site Erythrocyte Sedimentation Rate 4 Months M06.00 - Rheumatoid arthritis without rheumatoid factor, unspecified site Coding Level of Care Code Est Pt Level 4 (66799) Diagnoses Seronegative rheumatoid arthritis M06.00 Long-term use of hydroxychloroquine Z79.899
== END 2023-12-18 09:39 | disposition home or self-care (01) ==
PROVIDERS: PCP Internal Medicine; Visit Provider Student in an Organized Health Care Education/Training Program
DX: M06.00 Rheumatoid arthritis without rheumatoid factor, unspecified site (principal); Z79.899 Other long term (current) drug therapy
CPT/HCPCS: 99214

== ENCOUNTER → 2023-12-18 08:48 | Outpatient (BNVA) | payer MEDICARE, SELFPAY | PROVIDERS: PCP Internal Medicine; Visit Provider Student in an Organized Health Care Education/Training Program | DX: M06.00 Rheumatoid arthritis without rheumatoid factor, unspecified site (principal); Z79.899 Other long term (current) drug therapy | CPT/HCPCS: 99212 ==

== ENCOUNTER 2023-12-26 18:46 | Outpatient (REF) | payer MEDICARE, SELFPAY ==
--- NOTE | ~2023-12-26 | MR_ITS ---
EXAMINATION: MR ANKLE WITHOUT CONTRAST, RIGHT CLINICAL INFORMATION: Achilles tendon strain. COMPARISON: X-ray 06/18/2023 TECHNIQUE: MRI of the ankle was performed using routine sequences on a high-field scanner. FINDINGS: ACHILLES TENDON: There is thickening and abnormal heterogeneously increased signal in the Achilles tendon, more prominent in the mid/distal tendon. The Achilles tendon measures up to 1.4 cm AP. Findings are compatible with severe tendinosis. In the distal tendon, there is a transversely oriented T2 bright signal, measuring approximately 0.2 cm in thickness, measuring 1.3 cm transverse, along the deep surface of the tendon. This extends over a distance approximately 1.6 cm craniocaudal. Findings suggestive of intrasubstance/deep surface partial tear. There is Achilles peritendinitis. The chronic calcifications seen in the distal tendon on the prior radiograph are not clearly evident on MRI. BONE/JOINTS: No evidence of acute fracture or dislocation. No talar OCD. Degenerative signal in the navicular. Mild degenerative signal in the distal cuboid. MUSCLES/TENDONS: Medial flexor, peroneal, extensor tendons intact. LIGAMENTS: Sprain posterior talofibular ligament. Remainder of the lateral ligaments appear intact. Intact deltoid ligament. PLANTAR FASCIA: Intact. Prominent plantar calcaneal spur. SINUS TARSI: Normal signal. TARSAL TUNNEL : Unremarkable. SUBCUTANEOUS SOFT TISSUES: Unremarkable. MR/MR ankle RT wo con IMPRESSION: 1. Severe Achilles tendinosis. Findings in the distal Achilles tendon suggest an intrasubstance/deep surface partial tear in the distal Achilles tendon, as detailed above. Achilles peritendinitis present. See details above. 2. Posterior talofibular ligament sprain. 3. Prominent plantar calcaneal spur.
== END 2023-12-26 18:47 | disposition home or self-care (01) ==
LOC: HO.MRI 18:46
PROVIDERS: PCP Internal Medicine; Visit Provider Internal Medicine
DX: S86.011A Strain of right Achilles tendon, initial encounter (principal)
CPT/HCPCS: 73721

== ENCOUNTER 2024-01-04 09:50 | Outpatient (AMB) | payer MEDICARE, SELFPAY ==
--- NOTE | 2024-01-04 10:10 | MHC.OFFVIS ---
Intake Intake Visit Reasons: 3M f/u CT KUB(set) Intake Note: Patient is present for follow up recurrent kidney stones and CT results Imagin11/16/23 Urology Medication: none Blood Thinner: None Senior Environmental Practice Leader Required: Yes Senior Environmental Practice Leader Name: MIKAELA ACKERMAN Maria RKATELYNNI Accompanied by: Self / Same As Patient Allergies No Known Allergies [No Known Allergies*] Allergy (Verified 01/04/24 10:45) Medication List - Last Reconciled 01/04/24 by CASSIUS Khan-DEISI carbamazepine 400 mg PO BID diclofenac sodium 1% topical Humira(CF) (adalimumab) 40 mg (0.4 mL) subcut Q2W NS hydroxychloroquine 300 mg (1.5 x 200 mg) PO DAILY pregabalin 1 cap PO BID pregabalin 25 mg PO BID triamcinolone acetonide 0.1% 1 appl topical BID 10 days HPI HPI Comments History of Present Illness Details Day is a pleasant 68 year old Mongolian speaking female patient Dr. Rouse. She has a past medical history of nephrolithiasis, sleep apnea, splenic artery aneurysm, trigeminal neuralgia, rheumatoid arthritis, GERD, hiatal hernia, fibromyalgia, osteoarthritis, insomnia, autoimmune urticaria, obesity, and cervical spondylosis. She presents to the office today for follow-up of her longstanding history of nephrolithiasis. Recent CT KUB results reviewed with the patient today. The kidneys are normal in size, shape, and attenuation. No hydronephrosis hydroureter or calculi seen. No perinephric stranding. The bladder is unremarkable. She discusses her ongoing orthopedic issues and has been following up for low-back pain, right hip and knee pain she has been experiencing. She discusses having received cortisone injections and felt this was helpful. She also discusses her longstanding issues with fibromyalgia and arthritis. She currently denies any bothersome urinary issues or concerns. In office urinalysis results reviewed with the patient today. 2+ leukocytes. However she denies any UTI like symptoms at this time. When asked she denies urinary urgency, urinary frequency, incontinence, nocturia, hematuria, dysuria, foul smelling urine, changes to urinary stream, flank pain, fever, and or chills. She is happy with her current voiding parameters. She reports to be drinking plenty of water daily. She otherwise offers no other issues or concerns at this time. [facility] Medical History (Updated 01/05/24 @ 13:29 by [facility] Positional lightheadedness Lumbago with sciatica, right side Recurrent kidney stones Sleep apnea Renal calculi Splenic artery aneurysm Shoulder pain, right Low back pain at multiple sites Varices of other sites Kidney stone on left side Lumbago with sciatica, left side Trigeminal neuralgia of right side of face Seronegative rheumatoid arthritis Nephrolithiasis Loose right total knee arthroplasty Gastroesophageal reflux disease Hiatal hernia Tailor's bunion of left foot Fibromyalgia Osteoarthritis Impaired fasting glucose Insomnia Cervical spondylosis without myelopathy Autoimmune urticaria Morbid obesity due to excess calories Surgical History History of esophagogastroduodenoscopy (EGD) History of colonoscopy History of arthroscopy of right shoulder History of laparoscopic cholecystectomy Status post laser lithotripsy of ureteral calculus History of bunionectomy of left great toe History of cranioplasty History of shoulder surgery Status post right knee replacement Family History Father Emphysema of lung Mother Hypertension Maternal Grandmother No problems noted. Maternal Grandfather No problems noted. Paternal Grandmother No problems noted. Paternal Grandfather No problems noted. Maternal Aunt Diabetes Sister No problems noted. Son No problems noted. Daughter No problems noted. 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) Alcohol intake: never Patient Tobacco Use Status: Never used Tobacco e-Cigarette/Vaping Use: Never Used service: No Current occupational status: unemployed Current occupation: rt handed Cognitive needs: No Hearing needs: No Vision needs: No Review of Systems Const Reports as per HPI Eyes Reports no additional complaints ENT Reports no additional complaints Card Reports as per HPI Resp Reports no additional complaints GI Reports as per HPI Reports as per HPI Musc Reports as per HPI Neuro Reports as per HPI Psych Reports no additional complaints Physical Exam Const General: cooperative, healthy appearing, comfortable, no acute distress, well developed, alert and awake Orientation/consciousness: patient oriented x3 HEENT Head: Yes normal to inspection, Yes normocephalic and Yes atraumatic Eyes General: appearance normal, both eyes and all related structures Neck Neck: Yes normal visual inspection and Yes trachea midline Chest Chest palpation & inspection: normal inspection of the chest Resp Effort & Inspection: normal respiratory effort and able to speak in complete sentences Cardio Rhythm: regular rhythm GI Inspection: Yes normal to inspection General: Yes no CVA tenderness Back/Spine/Pelvis Back: no CVA tenderness Neuro General: patient oriented x3 Psych Appearance: grossly normal Mental Status: mental status grossly normal Speech and movement: Normal speech and movement present and Clear speech present Affect: normal affect Attitude: cooperative Thought process: Normal thought process present Thought content: Normal thought content present Insight: Fair insight present (Psych) Judgement: Fair judgement present (Psych) Results AMB Urinalysis, Automated UA Leukoctes 125 Jocelyn/uL Last Edit by [employer] on 01/04/24 10:24 UA Nitrite Negative Last Edit by [employer] on 01/04/24 10:24 UA Urobilinogen 0.2 mg/dL Last Edit by [employer] on 01/04/24 10:24 UA Protein 30 mg/dL Last Edit by [employer] on 01/04/24 10:24 UA pH 5.5 Last Edit by [employer] on 01/04/24 10:24 UA Blood 0 Rm/uL Last Edit by [employer] on 01/04/24 10:24 UA Specific [place] 1.030 Last Edit by [employer] on 01/04/24 10:24 UA Ketone Negative Last Edit by [employer] on 01/04/24 10:24 UA Bilirubin 1 mg/dL Last Edit by [employer] on 01/04/24 10:24 UA Glucose 0 mg/dL Last Edit by [employer] on 01/04/24 10:24 Results Reviewed Results Reviewed: Laboratory Last Values Urine pH (Auto) 5.5 01/04/24 10:16 Specific [place] (Auto) 1.030 01/04/24 10:16 Urine Protein (Auto) 30 mg/dL 01/04/24 10:16 Glucose (UA)(Auto) 0 mg/dL 01/04/24 10:16 Urine Ketones (Auto) Negative 01/04/24 10:16 Urine Blood (Auto) 0 Rm/uL 01/04/24 10:16 Urine Nitrite (Auto) Negative 01/04/24 10:16 Urine Bilirubin (Auto) 1 mg/dL 01/04/24 10:16 Urine Urobilinogen (Auto) 0.2 mg/dL 01/04/24 10:16 Leukocyte Esterase (Auto) 125 Jocelyn/uL 01/04/24 10:16 Date of Service: 11/16/23 CT ABDOMEN AND PELVIS WITHOUT CONTRAST FINDINGS: Lung Bases: No suspicious lung nodules. Liver, Gallbladder and Biliary Tree: The liver appears normal in attenuation. No discrete liver mass. No biliary ductal dilatation. Cholecystectomy. Pancreas: No discrete pancreatic mass or pancreatic ductal dilatation. Spleen: Normal size spleen. Stable-appearing peripherally calcified splenic artery aneurysms measuring up to 1.2 cm. Adrenal Glands: No adrenal mass. Kidneys and Ureters: The kidneys are normal in size, shape, and attenuation. No hydronephrosis, hydroureter, or calculi seen. No perinephric stranding. Bladder: Unremarkable. Gastrointestinal Tract: Small hiatal hernia. The small and large bowel are normal in caliber without evidence of obstruction. Minimal colonic diverticulosis. No acute inflammatory changes. Abdominal Wall: No significant hernia is appreciated. Lymph Nodes: No lymphadenopathy. Vascular: Normal caliber abdominal aorta with mild atherosclerosis. There is a splenorenal shunt of uncertain etiology. The liver does not appear morphologically cirrhotic and the spleen is not enlarged to suggest underlying portal hypertension. The splenic vein was patent on the CT from 03/21/2022 performed with contrast at which time the varices were also present. Pelvic Viscera: Unremarkable. Osseous Structures: Degenerative changes in the spine. IMPRESSION: No visible nephrolithiasis. No hydronephrosis. Spontaneous portosystemic splenorenal shunt with left upper quadrant varices of uncertain etiology. On past imaging with contrast, the splenic vein is patent. Clinical correlation for possible portal hypertension is needed although there is no evidence of morphologic cirrhosis or splenomegaly on this exam. Assessment & Plan Assessment & Plan (1) Renal calculi: Code(s): N20.0 - Calculus of kidney Plan In office urinalysis results reviewed with the patient today; as noted above. Patient currently denies any bothersome urinary issues or concerns. Recent CT KUB results reviewed with the patient today; as noted above. Discussed, educated, and stressed the importance of drinking adequate amount of water daily. Continue adding 1 oz of lemon juice to water daily. Will obtain renal ultrasound in 6 months. Follow-up in 6 months with imaging to be completed prior; or sooner with any issues, concerns, and or questions. Orders: Orders AMB Urinalysis Automated 01/04/24 Z13.9 - Encounter for screening, unspecified US renal BI 6 Months N20.0 - Calculus of kidney Patient Instructions: The patient had an opportunity to ask questions regarding the treatment plan. All questions were answered. Physical exam, labs, and imaging were discussed and reviewed in detail. As well as risks, benefits, and discussion of treatment choices. No major barriers to understanding were identified. The patient expressed understanding and agreement with the above treatment plan. The patient was made aware they should contact our office by phone for worsening of their current condition, the appearance of new symptoms, or with any questions or concerns. Compliance is encouraged with any medications and follow up testing that is ordered. It is a privilege to be allowed the opportunity to participate in? your urological care.? Again, if you have any questions or concerns If you have any questions or concerns please do not hesitate to contact me. The office is [phone]. This note is constructed using voice recognition software. While every effort has been made to ensure accuracy rn transition errors may have been included. Yours sincerely, TIAN Khan Coding Level of Care Code Est Pt Level 3 (36375) Diagnoses Renal calculi N20.0
== END 2024-01-04 10:43 | disposition home or self-care (01) ==
PROVIDERS: PCP Internal Medicine; Visit Provider Nurse Practitioner Family
DX: N20.0 Calculus of kidney (principal)
CPT/HCPCS: 99213

== ENCOUNTER → 2024-01-04 09:50 | Outpatient (BNVA) | payer MEDICARE, SELFPAY | PROVIDERS: PCP Internal Medicine; Visit Provider Nurse Practitioner Family | DX: Z87.442 Personal history of urinary calculi (principal) | CPT/HCPCS: 81003; 99212 ==

== ENCOUNTER 2024-01-04 11:00 | Outpatient (RCR) | payer MEDICARE, OTHER, SELFPAY | END 2024-01-31 11:34 | disposition home or self-care (01) | LOC: HO.PT 11:00 | PROVIDERS: PCP Internal Medicine; Visit Provider Physician Assistant | DX: M76.61 Achilles tendinitis, right leg (principal) | CPT/HCPCS: 97110; 97140; 97162; 97530 ==

== ENCOUNTER 2024-01-16 11:37 | Outpatient (AMB) | payer MEDICARE, SELFPAY ==
[2024-01-16 11:51] VITALS: BP 116/70; PULSE 90; TEMP 36.1; O2SAT 95; BMI 31.8
--- NOTE | 2024-01-16 11:51 | AM.OFFWIN_ITS ---
Intake Vital Signs 01/16/24 11:51 Height 5 ft 1 in Weight 168 lb 4 oz BMI 31.8 BP 116/70 Blood Pressure Location Rt brachial Position Sitting Pulse 90 Pulse Source Pulse Oximeter Temp 97.0 F Temp Source Temporal Artery Scan Pulse Oximetry (%) 95 Oxygen Delivery Method Room Air Intake Visit Reasons: EP Cough, headache, bodyache Intake Note: Pt presents to the office today for c/o cough, headache, and body aches that started about a week ago. Patient Tobacco Use Status: Never used Tobacco Allergies No Known Allergies [No Known Allergies*] Allergy (Verified 01/16/24 11:53) HPI HPI Comments History of Present Illness Details 68 y/o female patient who presents to e walk in clinic with c/o cough, chest congestion and nasal x 1 week. PFSH Medical History Positional lightheadedness Lumbago with sciatica, right side Recurrent kidney stones Sleep apnea Renal calculi Splenic artery aneurysm Shoulder pain, right Low back pain at multiple sites Varices of other sites Kidney stone on left side Lumbago with sciatica, left side Trigeminal neuralgia of right side of face Seronegative rheumatoid arthritis Nephrolithiasis Loose right total knee arthroplasty Gastroesophageal reflux disease Hiatal hernia Tailor's bunion of left foot Fibromyalgia Osteoarthritis Impaired fasting glucose Insomnia Cervical spondylosis without myelopathy Autoimmune urticaria Morbid obesity due to excess calories Surgical History History of esophagogastroduodenoscopy (EGD) History of colonoscopy History of arthroscopy of right shoulder History of laparoscopic cholecystectomy Status post laser lithotripsy of ureteral calculus History of bunionectomy of left great toe History of cranioplasty History of shoulder surgery Status post right knee replacement Family History Father Emphysema of lung Mother Hypertension Maternal Grandmother No problems noted. Maternal Grandfather No problems noted. Paternal Grandmother No problems noted. Paternal Grandfather No problems noted. Maternal Aunt Diabetes Sister No problems noted. Son No problems noted. Daughter No problems noted. 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) Alcohol intake: never Patient Tobacco Use Status: Never used Tobacco e-Cigarette/Vaping Use: Never Used service: No Current occupational status: unemployed Current occupation: rt handed Cognitive needs: No Hearing needs: No Vision needs: No Review of Systems Const All systems reviewed & are unremarkable except as noted in HPI and below Physical Exam Vital Signs: Last Vital Signs Temp 97.0 F 01/16/24 11:51 Pulse 90 01/16/24 11:51 BP 116/70 01/16/24 11:51 Pulse Ox 95 01/16/24 11:51 Oxygen Delivery Method Room Air 01/16/24 11:51 BMI result Body Mass Index 31.8 Const General: no acute distress; No comfortable Nutritional Appearance: overweight Orientation/consciousness: patient oriented x3 HEENT Head: Yes normocephalic Ears: external ears normal and TM's normal bilaterally General nose exam: Abnormal mucous membranes and turbinates present boggy and erythematous and Nasal discharge present Face and sinus: Yes sinuses nontender Mouth: moist mucous membranes Throat: Yes posterior oropharynx normal Resp Effort & Inspection: normal respiratory effort and able to speak in complete sentences Auscultation: clear to auscultation bilaterally, no crackles, no rales, no rhonchi and no wheezes Cardio Rate: regular rate Rhythm: regular rhythm Neuro General: patient oriented x3 Assessment & Plan Assessment & Plan (1) Cough in adult: Code(s): R05.9 - Cough, unspecified Plan: - Rest and hydrate well with warm fluids - Zpack today - Take medications as directed. Orders: Orders SARS-CoV2/FLU/RSV Today R05.9 - Cough, unspecified Medications: New azithromycin 500 mg PO DAILY 3 days 3 tabs 0RF R05.9 - Cough, unspecified benzonatate 100 mg PO TID 30 caps 0RF R05.9 - Cough, unspecified skpxkdwrmtsca-VT-djscazjwjib 5-10-100 mg/5 mL (Adult Robitussin Peak Cold M-S) 10 mL PO Q4H PRN 237 mL 0RF cold symptoms R05.9 - Cough, unspecified Coding Level of Care Code Est Pt Level 3 (94401) Diagnoses Cough in adult R05.9 Time Spent (min) 15
== END 2024-01-16 12:18 | disposition home or self-care (01) ==
PROVIDERS: PCP Internal Medicine; Visit Provider Nurse Practitioner Family
DX: R05.9 Cough, unspecified (principal)
CPT/HCPCS: 99213

== ENCOUNTER 2024-01-16 12:14 | Outpatient (REF) | payer MEDICARE, SELFPAY ==
[2024-01-16 15:33] LABS: Influenza A PCR NEGATIVE (Negative); Influenza B PCR NEGATIVE (Negative); Resp Syncy Virus RNA Qual PCR NEGATIVE (Negative); SARS COV2 PCR INHOUSE NEGATIVE (Negative)
== END 2024-01-16 12:15 | disposition home or self-care (01) ==
LOC: HO.LAB 12:14
PROVIDERS: Visit Provider Nurse Practitioner Family
DX: R05.9 Cough, unspecified (principal)
CPT/HCPCS: 0241U

== ENCOUNTER 2024-02-25 11:00 | Outpatient (RCR) | payer MEDICARE, SELFPAY | END 2024-05-12 09:25 | disposition home or self-care (01) | LOC: HO.PT 11:00 | PROVIDERS: PCP Internal Medicine; Visit Provider Orthopaedic Surgery | DX: M25.551 Pain in right hip (principal) | CPT/HCPCS: 97110; 97162 ==

== ENCOUNTER → 2024-03-04 13:53 | Outpatient (RCR) | payer MEDICARE, MEDICAID, SELFPAY ==
--- NOTE | 2020-09-13 10:19 | MHC.OT.DC ---
[address] [phone] F: [phone] Occupational Therapy Discharge Note Provider: DR. BUSTILLOS Diagnosis: BILATERAL HAND PAIN Date of Surgery: Date of Evaluation: 07/27/20 Date of Discharge: Treatments to Date: 9 Cancellations to Date: 0 No Shows to Date: 0 Discharge Status: Improved Function Patient Elected to Stop Discharge Summary: C/O B/L SHOULDER PAIN IMPROVING. THUMB PAIN IMPROVING. CON'T OP AP WEAKNESS WITH PINCH -> MCPJ STRESS. 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 MAY BENEFIT FROM MRI TO RO LIGAMENTOUS INJURY Electronically Signed By: LAVINIA GUZMAN OT CHT CLT Reviewed/agree with student documentation: N/A Therapist: Please Sign and return to therapist, thank you for your referral.
== END | disposition home or self-care (01) ==
LOC: HO.OT 07-13 10:00
PROVIDERS: PCP Internal Medicine; Visit Provider Student in an Organized Health Care Education/Training Program
DX: M06.9 Rheumatoid arthritis, unspecified (principal); M79.642 Pain in left hand; M79.641 Pain in right hand
CPT/HCPCS: 29125; 97035; 97110; 97166; 97530

== ENCOUNTER 2024-03-14 12:46 | Outpatient (AMB) | payer MEDICARE, SELFPAY ==
--- OUTSIDE RECORDS SUMMARY | 2024-03-14 12:48 | XMS_ITS | Continuity of Care Document ---
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 Start Date: 01/19/21 Status: Ordered Baclofen = 10 mg, By Mouth, 3 times a day, 0 Refills, Maintenance, 01/17/21 13:13:00 EDT, Partial fill upon patient request if the prescription is for a schedule II opioid drug. Start Date: 01/17/21 Status: Ordered carBAMazepine 200 mg oral tablet See Instructions, TAKE 2 TABLETS BY MOUTH TWICE DAILY, # 360 tablet, Refills 1, Tot. Refills 1, Maintenance, 08/08/22 10:47:00 EDT, Instructions Replace Required Details, Route to Pharmacy Electronically, [email or web address] #[id number], 154.94, cm, 08/08... Start Date: 08/08/22 Status: Ordered diclofenac 1% topical gel = 2 Gm, Topically, 4 times a day, 0 Refills, Maintenance, 02/25/21 9:16:00 EDT, Partial fill upon patient request if the prescription is for a schedule II opioid drug. Start Date: 02/25/21 Status: Ordered Enbrel See Instructions, 50 mg Subcutaneous Infusion once a week on sunday, 0 Refills, Maintenance, 01/17/21 13:09:00 EDT, Partial fill upon patient request if the prescription is for a schedule II opioid drug. Start Date: 01/17/21 Status: Ordered Epitol 200 mg oral tablet 2 tablet = 400 mg, By Mouth, 2 times a day, # 120 tablet, 0 Refills, Maintenance, 06/29/22 14:58:00EDT, [facility][id number], Partial fill upon patient request if the prescription is for a schedule II opioid drug., 154.94, cm, 02/28/22 10:22:0... Start Date: 06/29/22 Status: Ordered hydroxychloroquine 200 mg oral tablet 200 mg, 1, tablet, By Mouth, 2 times a day, Refills 0, Maintenance, 05/08/17 10:57:49 Start Date: 05/08/17 Status: Ordered omeprazole 20 mg oral delayed release tablet 1 tablet = 20 mg, By Mouth, Daily, 0 Refills, Maintenance, 05/08/17 10:58:26 Start Date: 05/08/17 Status: Ordered oxycodone 5mg oxycodone 5mg, Refills 0, Maintenance, 02/25/21 9:15:00 EDT, Supply Start Date: 02/25/21 Status: Ordered PredniSONE By Mouth, Daily, 0 Refills, Maintenance, 03/29/21 10:41:00 EDT, Partial fill upon patient request if the prescription is for a schedule II opioid drug. Start Date: 03/29/21 Status: Ordered pregabalin 150 mg oral capsule 1 capsule = 150 mg, By Mouth, 2 times a day, # 180 capsule, 1 Refills, Maintenance, 08/08/22 10:48:00 EDT, Capsule, [facility] #[id number], Instructions in Hungarian please. MassPAT checked, 154.94, cm, 08/08/22 10:05:00 EDT, Height, 76.7, kg, 01/06... Start Date: 08/08/22 Status: Ordered pregabalin 25 mg oral capsule See Instructions, One 25mg cap by mouth in addition to 150mg dose twice daily for a total of 175mg BID, # 60 capsule, 5 Refills, Maintenance, 08/02/22 12:32:00 EDT, [email or web address] #[id number], Instructions in Hungarian please. MassPAT checked, 154.94,... Start Date: 08/02/22 Status: Ordered tiZANidine 2 mg oral tablet 4 mg, 2, tablet, By Mouth, Every 8 hours, Refills 0, Maintenance, 02/25/21 9:16:00 EDT, Partial fill upon patient request if the prescription is for a schedule II opioid drug. Start Date: 02/25/21 Status: Ordered Vitamin D3 By Mouth, 2000 units, 0 Refills, Maintenance, 05/08/17 10:58:47 Start Date: 05/08/17 Status: Ordered Problem List Condition Confirmation Course Effective Dates Status Health St atus Informant Splenic varices Confirmed Active Facial pain Confirmed Active GERD (gastroesophageal reflux disease) Confirmed Active Hypoxia Confirmed Active Dyspepsia Confirmed Active Fatty liver disease, nonalcoholic Confirmed Active Obese class I Confirmed Active Obesity (BMI 30-39.9) Confirmed Active Obstructive sleep apnea Confirmed Active Social History Social History Type Response Smoking Status Never (less than 100 in lifetime) entered on: 06/02/22 Sex Patient Care team information Care Team Personnel Name: Padma MAYO , Lkashmi Schmidt Position: Reference Physician Member Role: PCP Address: Address: [address] [place] [address]- Care Team Related Persons Name: RAMONABE SAMANOIX Address: [address] [address]
--- OUTSIDE RECORDS SUMMARY | 2024-03-14 12:48 | XMS_ITS | Continuity of Care Document ---
Author Organization [facility] Address [address] [place] [address]- Care Team Providers Care Physicist [place] Name Role Phone Padma MAYO, Lakshmi Schmidt Primary Care Physician Encounter [facility] Date(s): 02/27/23 - 03/29/[address] [facility] [address] [address]- Attending Physician: Louis Jackson Admitting Physician: Louis [...] Replace Required Details, Route to Pharmacy Electronically, [facility] #[id number], 154.94, cm, 08/08... Start Date: 08/08/22 Status: [...] 120 tablet, 0 Refills, Maintenance, 06/29/22 14:58:00EDT, [facility] #[id number], Partial fill upon patient request if the [...] day, # 180 capsule, 1 Refills, Maintenance, 02/28/23 9:30:00 EDT, Capsule, [facility] #[id number], Instructions in Mongolian please. MassPAT checked, 154.94, cm, 10/16/22 10:08:00 EST, Height Start Date: 02/28/23 Status: Ordered pregabalin 25 mg oral capsule See Instructions, One 25mg cap by mouth in addition to 150mg dose twice daily for a total of 175mg BID, # 60 capsule, 5 Refills, Maintenance, 02/06/23 16:57:00 EDT, [facility] #[id number], Instructions in Mongolian please. MassPAT checked, 154.94,... Start Date: 02/06/23 Status: Ordered tiZANidine 2 mg oral tablet [...] Care Team Personnel Name: Padma MAYO , Lakshmi Schmidt Position: Reference Physician Member Role: PCP Address: Address: [address] [place] [address]- Care Team Related Persons Name: ABE NAVARROIX Address: [address] [address]
--- OUTSIDE RECORDS SUMMARY | 2024-03-14 12:48 | XMS_ITS | Continuity of Care Document ---
Author Organization [facility] Address [address] [facility], [address]r d Floor, [address] [place] [address]- Care Team Providers Care Well Testing Operator Name Role Phone Padma MAYO, Lakshmi Schmidt Primary Care Physician En[place] [facility] [place] Date(s): 02/05/23 - 03/07/23 [facility] [address], 3rd Floor, [address] [place] [address] Allergies, Adverse Reactions, Alerts No Known Allergies [...] Replace Required Details, Route to Pharmacy Electronically, [facility] #[id number], 825.94, cm, 08/08... Start Date: 08/08/22 Status: Ordered [...] 120 tablet, 0 Refills, Maintenance, 06/29/22 14:58:00EDT, [facility] #[id number], Partial fill upon patient request if the [...] 1 Refills, Maintenance, 02/28/23 9:30:00 EDT, Capsule, [facility] #[id number], Instructions in Emirati please. Merced checked, 154.94, cm, 10/16/22 10:08:00 EST, Height Start Date: 02/28/23 Status: Ordered pregabalin 25 mg oral capsule See Instructions, One 25mg cap by mouth in addition to 150mg dose twice daily for a total of 175mg BID, # 60 capsule, 5 Refills, Maintenance, 02/06/23 16:57:00 EDT, [facility] #[id number], Instructions in Emirati please. MassPAT checked, 154.94,... Start Date: 02/06/23 [...] Physician Member Role: PCP Address: Address: [address] [place] [address]- Care Team Related Persons Name: KURTIS NAVARRO Address: [address] [address]
--- OUTSIDE RECORDS SUMMARY | 2024-03-14 12:48 | XMS_ITS | Continuity of Care Document ---
Author Organization [facility] Address [address] [place], [address] d Floor, [address] [place] [address]- Care Team Providers Care Chief Operating Officer Name Role Phone Padma MAYO, Lakshmi Schmidt Primary Care Physician En[facility] [place] Date(s): 06/29/22 - 07/29/22 [facility] [address], 3rd Floor, [address] [place] [id number] Allergies, Adverse Reactions, Alerts No Known Allergies [...] opioid drug. Start Date: 01/17/21 Status: Ordered diclofenac 1% topical gel = [...] 120 tablet, 0 Refills, Maintenance, 06/29/22 14:58:00EDT, [facility] #[id number], Partial fill upon patient request if the [...] # 180 capsule, 0 Refills, Maintenance, 06/01/22 9:23:00 EDT, Capsule, [facility] #[id number], Instructions in Papua [place] Guinean please. MassPAT checked, 154.94, cm, 02/28/22 10:22:00 EDT, Height, 76.7, kg, 01/19... Start Date: 06/01/22 Status: Ordered pregabalin 25 mg oral capsule See Instructions, Take one 25mg cap PO in addition to usual morning dose of pregabalin x 1 week. Then, add one 25mg cap PO to evening dose for a total of 175mg BID, # 60 capsule, 0 Refills, Maintenance, 06/30/22 10:42:00 EDT, [facility] #[id number]... Start Date: 06/30/22 Status: Ordered tiZANidine 2 mg oral tablet [...] on: 06/02/22 Sex Patient Care team information Personnel Name: Padma MAYO , Lakshmi Schmidt Address: Address: [address] [place] [address]
--- OUTSIDE RECORDS SUMMARY | 2024-03-14 12:48 | XMS_ITS | Continuity of Care Document ---
Author Organization [facility] Address [address], [address] Floor, [address] [place] [address]- Care Team Providers Care Machine Repairer Name Role Phone Padma MAYO, Lakshmi Schmidt Primary Care Physician Encounter [facility] [place] Date(s): 11/22/22 - 12/22/22 [facility] [address], 3[address], [address] [place] [address]- Allergies, Adverse Reactions, Alerts No Known Allergies [...] Replace Required Details, Route to Pharmacy Electronically, [facility] #[id number], 108.88, cm, 08/08... Start Date: 08/08/22 Status: Ordered [...] 120 tablet, 0 Refills, Maintenance, 06/29/22 14:58:00EDT, [facility] #[id number], Partial fill upon patient request if the [...] 1 Refills, Maintenance, 08/08/22 10:48:00 EDT, Capsule, [facility] #[id number], Instructions in Irish please. MassPAT checked, 154.94, cm, 08/08/22 10:05:00 EDT, Height, 76.7, kg, 01/06... Start Date: 08/08/22 Status: Ordered pregabalin 25 mg oral capsule See Instructions, One 25mg cap by mouth in addition to 150mg dose twice daily for a total of 175mg BID, # 60 capsule, 5 Refills, Maintenance, 08/02/22 12:32:00 EDT, [facility] #[id number], Instructions in Irish please. MassPAT checked, 154.94,... Start Date: 08/02/22 [...] Physician Member Role: PCP Address: Address: [address] [place] [address]- Care Team Related Persons Name: RAMONABE SAMANOIX Address: [place] [address]
--- OUTSIDE RECORDS SUMMARY | 2024-03-14 12:48 | XMS_ITS | Continuity of Care Document ---
Author Organization [facility] Address [address] [facility], [address]r [address], [address] [place] [address]- Care Team Providers Care Agency Operator Name Role Phone Padma MAYO, Lakshmi Schmidt Primary Care Physician Encounter [facility] Date(s): 02/08/24 - 03/09/24 [facility] [address] [facility] [address], [address] [place] [address] Allergies, Adverse Reactions, Alerts No Known [...] MOUTH TWICE DAILY, # 360 tablet, Refills 5, Tot. Refills 5, Maintenance, 05/15/23 17:09:00 EDT, Instructions Replace Required Details, Route to Pharmacy Electronically, [facility] #[id number], 154.94, cm, 10/16... Start Date: 05/15/23 Status: Ordered carBAMazepine 200 mg oral tablet See Instructions, TAKE 2 TABLETS BY MOUTH TWICE DAILY, # 360 tablet, Refills 0, Maintenance, 11/14/23 17:02:00 EST, Instructions Replace Required Details, Route to Pharmacy Electronically, [facility] #[id number], 154.94, cm, 10/16/22 10:08:00 EST... Start Date: 11/14/23 Status: Ordered diclofenac 1% topical gel = [...] 120 tablet, 0 Refills, Maintenance, 06/29/22 14:58:00EDT, [facility] #[id number], Partial fill upon patient request if the [...] 2 times a day, # 60 capsule, 1 Refills, Maintenance, 02/12/24 14:30:00 EDT, Capsule, [facility] #[id number], Partial fill upon patient request if the prescription is for a schedule II opioid drug., 154.94, cm, ... Start Date: 02/12/24 Status: Ordered tiZANidine 2 mg oral tablet [...] List Condition Confirmation Course Effective Dates Status H ealth Status Informant Splenic varices Confirmed Active Facial pain Confirmed Active GERD (gastroesophageal reflux disease) Confirmed Active Hypoventilation Confirmed Active Hypoxia Confirmed Active Dyspepsia Confirmed Active Fatty liver disease, nonalcoholic Confirmed Active Obese class I Confirmed Active Obesity (BMI 30-39.9) Confirmed Active Obstructive sleep apnea Confirmed Active Treatment-emergent central sleep apnea Confirmed Active Social History Social History Type Response Smoking Status Never (less than 100 in lifetime) entered on: 06/02/22 Sex Patient Care team information Care Team Personnel Name: Padma MAYO , Lakshmi Schmidt Position: Reference Physician Member Role: PCP Address: Address: [address] [place] [address]- Care Team Related Persons Name: KURTIS NAVARRO Address: [address] [address]
--- OUTSIDE RECORDS SUMMARY | 2024-03-14 12:49 | XMS_ITS | Continuity of Care Document ---
Author Organization [facility] Address [address] [place], [address] Floor, [address] [place] [address]- Care Team Providers Care Baking Assistant Name Role Phone Padma MAYO, Lakshmi Schmidt Primary Care Physician Encounter [facility] Date(s): 06/29/22 - 07/29/22 [facility] [address], 3[address], [address] [place] [id number] Allergies, Adverse Reactions, Alerts No Known Allergies [...] 120 tablet, 0 Refills, Maintenance, 06/29/22 14:58:00EDT, [facility] #[id number], Partial fill upon patient request if the [...] 0 Refills, Maintenance, 06/01/22 9:23:00 EDT, Capsule, [facility] #[id number], Instructions in New Zealander please. MassPAT checked, 154.94, cm, 02/28/22 10:22:00 [...] capsule, 0 Refills, Maintenance, 06/30/22 10:42:00 EDT, [facility] #049... Start Date: 06/30/22 Status: [...] Padma MAYO , Lakshmi Schmidt Address: Address: [address] [place] [address]
--- OUTSIDE RECORDS SUMMARY | 2024-03-14 12:49 | XMS_ITS | Continuity of Care Document ---
Author Organization [facility] Address [address] [facility], 3r d Floor, [address] [place] [address]- Care Team Providers Care Marketing Programs Manager Name Role Phone Padma MAYO, Lakshmi Schmidt Primary Care Physician [id number] Date[facility] 02/12/24 - 03/13/24 [facility] [address] [facility] 3rd Floor, [address] [place] [id number] Allergies, Adverse Reactions, Alerts [...] Replace Required Details, Route to Pharmacy Electronically, [facility] #[id number], 154.94, cm, 10/16... Start Date: 05/15/23 Status: Ordered carBAMazepine 200 mg oral tablet See Instructions, TAKE 2 TABLETS BY MOUTH TWICE DAILY, # 360 tablet, Refills 0, Maintenance, 11/14/23 17:02:00 EST, Instructions Replace Required Details, Route to Pharmacy Electronically, [facility] #[id number], 154.94, cm, 10/16/22 10:08:00 EST... Start Date: [...] 120 tablet, 0 Refills, Maintenance, 06/29/22 14:58:00EDT, [facility] #[id number], Partial fill upon patient request if the [...] 1 Refills, Maintenance, 02/12/24 14:30:00 EDT, Capsule, [facility][id number], Partial fill upon patient request if the [...] Physician Member Role: PCP Address: Address: [address] [place] [address]- Care Team Related Persons Name: KURTIS NAVARRO Address: [address] [address]
--- OUTSIDE RECORDS SUMMARY | 2024-03-14 12:49 | XMS_ITS | Continuity of Care Document ---
Author Organization [facility] Address [address] [place] [address]- Care Team Providers Care Sales Assoc Name Role Phone Padma MAYO, Lakshmi Schmidt Primary Care Physician Encounter [facility] [place] Date(s): 08/23/23 - 09/22/23 [facility] [address] [address]- Attending Physician: Louis Jackson Admitting Physician: Louis [...] Replace Required Details, Route to Pharmacy Electronically, [facility] #[id number], 154.94, cm, 10/16... Start Date: 05/15/23 Status: Ordered diclofenac 1% topical gel = [...] 120 tablet, 0 Refills, Maintenance, 06/29/22 14:58:00EDT, [facility] #[id number], Partial fill upon patient request if the [...] 2 times a day, # 180 capsule, 5 Refills, Maintenance, 05/15/23 17:09:00 EDT, Capsule, [facility] #[id number], Instructions in Uruguayan please. MassPAT checked, 154.94, cm, 10/16/22 10:08:00 EST, Height Start Date: 05/15/23 Status: Ordered pregabalin 25 mg oral capsule See Instructions, One 25mg cap by mouth in addition to 150mg dose twice daily for a total of 175mg BID, # 60 capsule, 5 Refills, Maintenance, 05/15/23 17:10:00 EDT, [facility] #[id number], Instructions in Uruguayan please. MassPAT checked, 154.94,... Start Date: 05/15/23 Status: Ordered tiZANidine 2 mg oral tablet [...] Physician Member Role: PCP Address: Address: [address] [place] [address]- Care Team Related Persons Name: KURTIS NAVARRO Address: home [address] [place] [address]
--- OUTSIDE RECORDS SUMMARY | 2024-03-14 12:49 | XMS_ITS | Continuity of Care Document ---
Author Organization [facility] Address [address] [place] [address]- Care Team Providers Care Joy Operator Name Role Phone Padma MAYO, Lakshmi Schmidt [id number] - 06/29/[address] [address]- Allergies, Adverse Reactions, Alerts No Known Allergies [...] Replace Required Details, Route to Pharmacy Electronically, [facility] #[id number], 231.78, cm, 10/16... Start Date: 05/15/23 Status: Ordered [...] 120 tablet, 0 Refills, Maintenance, 06/29/22 14:58:00EDT, [facility] #[id number], Partial fill upon patient request if the [...] 5 Refills, Maintenance, 05/15/23 17:09:00 EDT, Capsule, [facility] #[id number], Instructions in Filipino please. Merced checked, 154.94, cm, 10/16/22 10:08:00 EST, Height Start Date: 05/15/23 Status: Ordered pregabalin 25 mg oral capsule See Instructions, One 25mg cap by mouth in addition to 150mg dose twice daily for a total of 175mg BID, # 60 capsule, 5 Refills, Maintenance, 05/15/23 17:10:00 EDT, [facility] #[id number], Instructions in Filipino please. MassPAT checked, 154.94,... Start Date: 05/15/23 [...] Physician Member Role: PCP Address: Address: [address] [place] [address]- Care Team Related Persons Name: KURTIS NAVARRO Address: [address] [address]
--- OUTSIDE RECORDS SUMMARY | 2024-03-14 12:49 | XMS_ITS | Continuity of Care Document ---
Author Organization [facility] Address [address] [place], [address] d Floor, [address] [place] [address]- Care Team Providers Care Anodize Machine Operator Name Role Phone Padma MAYO, Lakshmi Schmidt Primary [id number] Date(s[facility] 10/30/22 - 11/29/22 [facility] [address], 3[address], [address] [place] [address]- Allergies, Adverse Reactions, Alerts No Known Allergies [...] Replace Required Details, Route to Pharmacy Electronically, [facility] #[id number], 571.08, cm, 08/08... Start Date: 08/08/22 Status: Ordered [...] 120 tablet, 0 Refills, Maintenance, 06/29/22 14:58:00EDT, [facility] #40723, Partial fill upon patient request if the [...] 1 Refills, Maintenance, 08/08/22 10:48:00 EDT, Capsule, [facility] #75663, Instructions in Djiboutian please. MassPAT checked, 154.94, cm, 08/08/22 10:05:00 EDT, Height, 76.7, kg, 01/06... Start Date: 08/08/22 Status: Ordered pregabalin 25 mg oral capsule See Instructions, One 25mg cap by mouth in addition to 150mg dose twice daily for a total of 175mg BID, # 60 capsule, 5 Refills, Maintenance, 08/02/22 12:32:00 EDT, [facility] #[id number], Instructions in Djiboutian please. MassPAT checked, 154.94,... Start Date: 08/02/22 [...] Physician Member Role: PCP Address: Address: [address] [place] [address]- Care Team Related Persons Name: RAMONABE SAMANOIX Address: [place] [address]
--- OUTSIDE RECORDS SUMMARY | 2024-03-14 12:49 | XMS_ITS | Continuity of Care Document ---
Author Organization [facility] Address [address] [place], [address] d Floor, [address] [place] [address]- Care Team Providers Care Biodiesel Process Control Technician Name Role Phone Padma MAYO, Lakshmi Schmidt Primary Care Physician [facility] [id number] Date(s): 11/12/23 - 12/12/23 [facility] [address] [place], 3rd Floor, [address] [place] [id number] Allergies, Adverse Reactions, Alerts No Known [...] Replace Required Details, Route to Pharmacy Electronically, [facility] #[id number], 154.94, cm, 10/16... Start Date: 05/15/23 Status: Ordered carBAMazepine 200 mg oral tablet See Instructions, TAKE 2 TABLETS BY MOUTH TWICE DAILY, # 360 tablet, Refills 0, Maintenance, 11/14/23 17:02:00 EST, Instructions Replace Required Details, Route to Pharmacy Electronically, [facility] #[id number], 154.94, cm, 10/16/22 10:08:00 EST... Start Date: [...] 120 tablet, 0 Refills, Maintenance, 06/29/22 14:58:00EDT, [facility] #[id number], Partial fill upon patient request if the [...] day, # 60 capsule, 1 Refills, Maintenance, 12/12/23 12:28:00 EST, Capsule, [facility] #[id number], Partial fill upon patient request if the prescription is for a schedule II opioid drug., 154.94, cm, ... Start Date: 12/12/23 Status: Ordered pregabalin 25 mg oral capsule See Instructions, One 25mg cap by mouth in addition to 150mg dose twice daily for a total of 175mg BID, # 60 capsule, 5 Refills, Maintenance, 12/12/23 12:27:00 EST, [facility] #[id number], Instructions in [place]ian please. MassPAT checked, 154.94,... Start Date: 12/12/23 Status: Ordered tiZANidine 2 mg oral tablet [...] Physician Member Role: PCP Address: Address: [address] [place] [address]- Care Team Related Persons Name: KURTIS NAVARRO Address: [address] [address]
--- OUTSIDE RECORDS SUMMARY | 2024-03-14 12:49 | XMS_ITS | Continuity of Care Document ---
Author Organization [facility] Address [address] [place] [address]- Care Team Providers Care Associate Account Executive Name Role Phone Padma MAYO, Lakshmi Schmidt Primary Care Physician [id number] Date[facility]s): 01/03/24 - 02/02/[address] [address]- Allergies, Adverse Reactions, Alerts No Known Allergies [...] Replace Required Details, Route to Pharmacy Electronically, [facility] #[id number], 154.94, cm, 10/16... Start Date: 05/15/23 Status: Ordered carBAMazepine 200 mg oral tablet See Instructions, TAKE 2 TABLETS BY MOUTH TWICE DAILY, # 360 tablet, Refills 0, Maintenance, 11/14/23 17:02:00 EST, Instructions Replace Required Details, Route to Pharmacy Electronically, [facility] #[id number], 154.94, cm, 10/16/22 10:08:00 EST... Start Date: [...] 120 tablet, 0 Refills, Maintenance, 06/29/22 14:58:00EDT, [facility] #[id number], Partial fill upon patient request if the [...] 1 Refills, Maintenance, 12/12/23 12:28:00 EST, Capsule, [facility] #[id number], Partial fill upon patient request if the prescription is for a schedule II opioid drug., 154.94, cm, ... Start Date: 12/12/23 Status: Ordered pregabalin 25 mg oral capsule See Instructions, One 25mg cap by mouth in addition to 150mg dose twice daily for a total of 175mg BID, # 60 capsule, 5 Refills, Maintenance, 12/12/23 12:27:00 EST, [facility] #27363, Instructions in Georgian please. MassPAT checked, 154.94,... Start Date: 12/12/23 [...] Physician Member Role: PCP Address: Address: [address] [place] [address]- Care Team Related Persons Name: KURTIS NAVARRO Address: home [address] [place] [address]
--- OUTSIDE RECORDS SUMMARY | 2024-03-14 12:49 | XMS_ITS | Continuity of Care Document ---
Author Organization [facility] Address [address] [place], [address] d Floor, [address] [place] [address]- Care Team Providers Care Director Account Management Name Role Phone Padma MAYO, Lakshmi Schmidt Primary Care Physician En[place] [facility] Date(s): 06/30/22 - 07/30/22 [facility] [address], 3[address] Floor, [address] [place] [address] Allergies, Adverse Reactions, Alerts No [...] 120 tablet, 0 Refills, Maintenance, 06/29/22 14:58:00EDT, [facility] #[id number], Partial fill upon patient request if the [...] 0 Refills, Maintenance, 06/01/22 9:23:00 EDT, Capsule, [facility] #[id number], Instructions in Rwandan please. MassPAT checked, 154.94, cm, 02/28/22 10:22:00 [...] capsule, 0 Refills, Maintenance, 06/30/22 10:42:00 EDT, [facility] #049... Start Date: 06/30/22 Status: [...] Padma MAYO , Lakshmi Schmidt Address: Address: [address] [place] [address]
--- OUTSIDE RECORDS SUMMARY | 2024-03-14 12:49 | XMS_ITS | Continuity of Care Document ---
Author Organization [facility] Address [address] [facility], 3r d Floor, [address] [place] [address]- Care Team Providers Care Drivers' Cash Clerk Name Role Phone Padma MAYO, Lakshmi Schmidt Primary Care Physician [id number] 12/07/23 - 01/06/24 [facility] [address] [facility] 3rd Floor, [address] [place] [id number] Allergies, Adverse Reactions, Alerts [...] Replace Required Details, Route to Pharmacy Electronically, [facility] #[id number], 154.94, cm, 10/16... Start Date: 05/15/23 Status: Ordered carBAMazepine 200 mg oral tablet See Instructions, TAKE 2 TABLETS BY MOUTH TWICE DAILY, # 360 tablet, Refills 0, Maintenance, 11/14/23 17:02:00 EST, Instructions Replace Required Details, Route to Pharmacy Electronically, [facility] #09692, 154.94, cm, 10/16/22 10:08:00 EST... Start Date: [...] 120 tablet, 0 Refills, Maintenance, 06/29/22 14:58:00EDT, [facility] #29269, Partial fill upon patient request if the [...] 1 Refills, Maintenance, 12/12/23 12:28:00 EST, Capsule, [facility] #[id number], Partial fill upon patient request if the prescription is for a schedule II opioid drug., 154.94, cm, ... Start Date: 12/12/23 Status: Ordered pregabalin 25 mg oral capsule See Instructions, One 25mg cap by mouth in addition to 150mg dose twice daily for a total of 175mg BID, # 60 capsule, 5 Refills, Maintenance, 12/12/23 12:27:00 [facility][id number], Instructions in Martiniquais please. MassPAT checked, 154.94,... Start Date: 12/12/23 [...] Physician Member Role: PCP Address: Address: [address] [place] [address]- Care Team Related Persons Name: KURTIS NAVARRO Address: [address] [address]
--- OUTSIDE RECORDS SUMMARY | 2024-03-14 12:49 | XMS_ITS | Continuity of Care Document ---
Author Organization [facility] Address [address] [facility], 3r d Floor, [address] [place] [address]- Care Team Providers Care Sap Business Intelligence Consultant Name Role Phone Padma MAYO, Lakshmi Schmidt Primary Care Physician Encounter [facility] Date(s): 01/02/24 - 02/01/24 [facility] [address] [place] [address], [address] [place] [id number] Attending Physician: Louis Jackson Admitting Physician: Louis [...] Replace Required Details, Route to Pharmacy Electronically, [facility] #[id number], 154.94, cm, 10/16... Start Date: 05/15/23 Status: Ordered carBAMazepine 200 mg oral tablet See Instructions, TAKE 2 TABLETS BY MOUTH TWICE DAILY, # 360 tablet, Refills 0, Maintenance, 11/14/23 17:02:00 EST, Instructions Replace Required Details, Route to Pharmacy Electronically, [facility] #[id number], 154.94, cm, 10/16/22 10:08:00 EST... Start Date: [...] 120 tablet, 0 Refills, Maintenance, 06/29/22 14:58:00EDT, [facility] #06489, Partial fill upon patient request if the [...] 1 Refills, Maintenance, 12/12/23 12:28:00 EST, Capsule, [facility] #[id number], Partial fill upon patient request if the prescription is for a schedule II opioid drug., 154.94, cm, ... Start Date: 12/12/23 Status: Ordered pregabalin 25 mg oral capsule See Instructions, One 25mg cap by mouth in addition to 150mg dose twice daily for a total of 175mg BID, # 60 capsule, 5 Refills, Maintenance, 12/12/23 12:27:00 EST, [facility] #[id number], Instructions in Kazakh please. MassPAT checked, 154.94,... Start Date: 12/12/23 [...] 100 in lifetime) entered on: 06/02/22 Sex Laboratory * Event Display: Non BH Lab Results Authored Date: [id number] Patient Care team information Care Team Personnel Name: Padma MAYO , Lakshmi Schmidt Position: Reference Physician Member Role: PCP Address: Address: [address] [place] [address]- Care Team Related Persons Name: KURTIS NAVARRO Address: [address] [address]
--- OUTSIDE RECORDS SUMMARY | 2024-03-14 12:49 | XMS_ITS | Continuity of Care Document ---
Author Organization [facility] Address [address] [place] [address]- Care Team Providers Care School Psychology Professor Name Role Phone Padma MAYO, Lakshmi Schmidt [id number] - 06[facility]24/[address] [address]- Allergies, Adverse Reactions, Alerts No Known Allergies [...] Replace Required Details, Route to Pharmacy Electronically, [facility] #[id number], 457.68, cm, 10/16... Start Date: 05/15/23 Status: Ordered [...] 120 tablet, 0 Refills, Maintenance, 06/29/22 14:58:00EDT, [facility] #[id number], Partial fill upon patient request if the [...] 5 Refills, Maintenance, 05/15/23 17:09:00 EDT, Capsule, [facility] #[id number], Instructions in Armenian please. [place] checked, 154.94, cm, 10/16/22 10:08:00 EST, Height Start Date: 05/15/23 Status: Ordered pregabalin 25 mg oral capsule See Instructions, One 25mg cap by mouth in addition to 150mg dose twice daily for a total of 175mg BID, # 60 capsule, 5 Refills, Maintenance, 05/15/23 17:10:00 EDT, [facility] #[id number], Instructions in Armenian please. MassPAT checked, 154.94,... Start Date: 05/15/23 [...] Physician Member Role: PCP Address: Address: [address] [place] [address]- Care Team Related Persons Name: KURTIS NAVARRO Address: [address] [address]
--- OUTSIDE RECORDS SUMMARY | 2024-03-14 12:49 | XMS_ITS | Continuity of Care Document ---
Author Organization [facility] Address [address] [facility], 3r d Floor, [address] [place] [address]- Care Team Providers Care Flitch Hanger Name Role Phone Padma MAYO, Lakshmi Schmidt Primary Care Physician Encounter [facility] [place] Date(s): 02/28/23 - 03/30/23 [facility] [address], 3[address] Floor, [address] [place] [id number] Allergies, Adverse Reactions, Alerts No Known Allergies [...] Replace Required Details, Route to Pharmacy Electronically, [facility] #[id number], 720.46, cm, 08/08... Start Date: 08/08/22 Status: Ordered [...] 120 tablet, 0 Refills, Maintenance, 06/29/22 14:58:00EDT, [facility] #[id number], Partial fill upon patient request if the [...] 1 Refills, Maintenance, 02/28/23 9:30:00 EDT, Capsule, [facility] #[id number], Instructions in Thai please. Merced checked, 154.94, cm, 10/16/22 10:08:00 EST, Height Start Date: 02/28/23 Status: Ordered pregabalin 25 mg oral capsule See Instructions, One 25mg cap by mouth in addition to 150mg dose twice daily for a total of 175mg BID, # 60 capsule, 5 Refills, Maintenance, 02/06/23 16:57:00 EDT, [facility] #[id number], Instructions in Thai please. MassPAT checked, 154.94,... Start Date: 02/06/23 [...] Physician Member Role: PCP Address: Address: [address] [place] [address]- Care Team Related Persons Name: KURTIS NAVARRO Address: [address] [address]
--- OUTSIDE RECORDS SUMMARY | 2024-03-14 12:49 | XMS_ITS | Continuity of Care Document ---
Author Organization [facility] Address [address], [address], [address] [place] [address]- Care Team Providers Care Apprentice Plumber Name Role Phone Padma MAYO, Lakshmi Schmidt Primary [id number] Date[facility] 11/[facility] - 12/01/22 [facility] [address], 3[address], [address] [place] [address]- Allergies, Adverse Reactions, Alerts No Known Allergies [...] Replace Required Details, Route to Pharmacy Electronically, [facility] #[id number], 004.67, cm, 08/08... Start Date: 08/08/22 Status: Ordered [...] 120 tablet, 0 Refills, Maintenance, 06/29/22 14:58:00EDT, [facility] #[id number], Partial fill upon patient request if the [...] 1 Refills, Maintenance, 08/08/22 10:48:00 EDT, Capsule, [facility] #[id number], Instructions in Burkinan please. MassPAT checked, 154.94, cm, 08/08/22 10:05:00 EDT, Height, 76.7, kg, 01/06... Start Date: 08/08/22 Status: Ordered pregabalin 25 mg oral capsule See Instructions, One 25mg cap by mouth in addition to 150mg dose twice daily for a total of 175mg BID, # 60 capsule, 5 Refills, Maintenance, 08/02/22 12:32:00 EDT, [facility] #[id number], Instructions in Burkinan please. MassPAT checked, 154.94,... Start Date: 08/02/22 [...] Physician Member Role: PCP Address: Address: [address] [place] [address]- Care Team Related Persons Name: RAMONABE SAMANOIX Address: [place] [address]
--- OUTSIDE RECORDS SUMMARY | 2024-03-14 12:49 | XMS_ITS | Continuity of Care Document ---
Author Organization [facility] Address [address] [place] [address]- Care Team Providers Care Science Technician Name Role Phone Padma MAYO, Lakshmi Schmidt [id number] 12/[facility] - 01/05/[address] [address]- Allergies, Adverse Reactions, Alerts No Known Allergies [...] Replace Required Details, Route to Pharmacy Electronically, [facility] #[id number], 154.94, cm, 10/16... Start Date: 05/15/23 Status: Ordered carBAMazepine 200 mg oral tablet See Instructions, TAKE 2 TABLETS BY MOUTH TWICE DAILY, # 360 tablet, Refills 0, Maintenance, 11/14/23 17:02:00 EST, Instructions Replace Required Details, Route to Pharmacy Electronically, [facility] #[id number], 154.94, cm, 10/16/22 10:08:00 EST... Start Date: [...] 120 tablet, 0 Refills, Maintenance, 06/29/22 14:58:00EDT, [facility] #[id number], Partial fill upon patient request if the [...] 1 Refills, Maintenance, 12/12/23 12:28:00 EST, Capsule, [facility] #[id number], Partial fill upon patient request if the prescription is for a schedule II opioid drug., 154.94, cm, ... Start Date: 12/12/23 Status: Ordered pregabalin 25 mg oral capsule See Instructions, One 25mg cap by mouth in addition to 150mg dose twice daily for a total of 175mg BID, # 60 capsule, 5 Refills, Maintenance, 12/12/23 12:27:00 EST, [facility] #[id number], Instructions in Lebanese please. MassPAT checked, 154.94,... Start Date: 12/12/23 [...] Physician Member Role: PCP Address: Address: [address] [place] [address]- Care Team Related Persons Name: KURTIS NAVARRO Address: [address] [address]
--- OUTSIDE RECORDS SUMMARY | 2024-03-14 12:49 | XMS_ITS | Continuity of Care Document ---
Author Organization [facility] Address [address] [facility], 3r d Floor, [address] [place] [address]- Care Team Providers Care Candle Maker Name Role Phone Padma MAYO, Lakshmi Schmidt Primary Care Physician En[facility] [place] Date(s): 12/11/23 - 01/10/24 [facility] [address] [facility] 3rd Floor, [address] [place] [address] Allergies, Adverse Reactions, Alerts No Known Allergies [...] Replace Required Details, Route to Pharmacy Electronically, [facility] #[id number], 154.94, cm, 10/16... Start Date: 05/15/23 Status: Ordered carBAMazepine 200 mg oral tablet See Instructions, TAKE 2 TABLETS BY MOUTH TWICE DAILY, # 360 tablet, Refills 0, Maintenance, 11/14/23 17:02:00 EST, Instructions Replace Required Details, Route to Pharmacy Electronically, [facility] #[id number], 154.94, cm, 10/16/22 10:08:00 EST... Start Date: [...] 120 tablet, 0 Refills, Maintenance, 06/29/22 14:58:00EDT, [facility] #[id number], Partial fill upon patient request if the [...] 1 Refills, Maintenance, 12/12/23 12:28:00 EST, Capsule, [facility] #[id number], Partial fill upon patient request if the prescription is for a schedule II opioid drug., 154.94, cm, ... Start Date: 12/12/23 Status: Ordered pregabalin 25 mg oral capsule See Instructions, One 25mg cap by mouth in addition to 150mg dose twice daily for a total of 175mg BID, # 60 capsule, 5 Refills, Maintenance, 12/12/23 12:27:[id number], Instructions in Costa Rican please. MassPAT checked, 154.94,... Start Date: 12/12/23 [...] Physician Member Role: PCP Address: Address: [address] [place] [address]- Care Team Related Persons Name: KURTIS NAVARRO Address: [address] [address]
--- OUTSIDE RECORDS SUMMARY | 2024-03-14 12:49 | XMS_ITS | Continuity of Care Document ---
Author Organization [facility] Address [address], [address], [address] [place] [address]- Care Team Providers Care Armored Car Messenger Name Role Phone Padma MAYO, Lakshmi Schmidt Primary Care Physician [id number] Date[facility] 11/19/23 - 12/19/23 [facility] [address], [address], [address] [place] [id number] Allergies, Adverse Reactions, Alerts No [...] Replace Required Details, Route to Pharmacy Electronically, [facility] #[id number], 154.94, cm, 10/16... Start Date: 05/15/23 Status: Ordered carBAMazepine 200 mg oral tablet See Instructions, TAKE 2 TABLETS BY MOUTH TWICE DAILY, # 360 tablet, Refills 0, Maintenance, 11/14/23 17:02:00 EST, Instructions Replace Required Details, Route to Pharmacy Electronically, [facility] #[id number], 154.94, cm, 10/16/22 10:08:00 EST... Start Date: [...] 120 tablet, 0 Refills, Maintenance, 06/29/22 14:58:00EDT, [facility] #[id number], Partial fill upon patient request if the [...] 1 Refills, Maintenance, 12/12/23 12:28:00 EST, Capsule, [facility] #[id number], Partial fill upon patient request if the prescription is for a schedule II opioid drug., 154.94, cm, ... Start Date: 12/12/23 Status: Ordered pregabalin 25 mg oral capsule See Instructions, One 25mg cap by mouth in addition to 150mg dose twice daily for a total of 175mg BID, # 60 capsule, 5 Refills, Maintenance, 12/12/23 12:27:00 EST, [facility] #[id number], Instructions in [place] please. MassPAT checked, 154.94,... Start Date: 12/12/23 [...] Physician Member Role: PCP Address: Address: [address] [place] [address]- Care Team Related Persons Name: KURTIS NAVARRO Address: [address] [address]
[2024-03-14 12:50] VITALS: BP 130/80; PULSE 73; TEMP 36.2; O2SAT 96; BMI 31.4
--- NOTE | 2024-03-14 12:50 | MHC.OFFWIV ---
Intake Vital Signs 03/14/24 12:50 Height 5 ft 1 in Weight 166 lb BMI 31.4 BP 130/80 Blood Pressure Location Lt brachial Position Sitting Pulse 73 Pulse Source Pulse Oximeter Temp 97.1 F Temp Source Temporal Artery Scan Pulse Oximetry (%) 96 Oxygen Delivery Method Room Air Intake Visit Reasons: Swollen Lt gland Intake Note: pt is here today for swollen lft gland started 2 days ago Patient Tobacco Use Status: Never used Tobacco Allergies No Known Allergies [No Known Allergies*] Allergy (Verified 03/14/24 12:56) Do you need a note to return to daycare/school/sports/work: No HPI HPI Comments History of Present Illness Details Patient is a 68-year-old female complaining of 2 days of left facial pain and swelling, a scratchy throat, slight left ear pain and pain with swallowing. She denies any cough or congestion, fevers or dental pain. She also denies any trouble breathing. She also states she feels like the glands in her neck are swollen on the left side [facility] Medical History Positional lightheadedness Lumbago with sciatica, right side Recurrent kidney stones Sleep apnea Renal calculi Splenic artery aneurysm Shoulder pain, right Low back pain at multiple sites Varices of other sites Kidney stone on left side Lumbago with sciatica, left side Trigeminal neuralgia of right side of face Seronegative rheumatoid arthritis Nephrolithiasis Loose right total knee arthroplasty Gastroesophageal reflux disease Hiatal hernia Tailor's bunion of left foot Fibromyalgia Osteoarthritis Impaired fasting glucose Insomnia Cervical spondylosis without myelopathy Autoimmune urticaria Morbid obesity due to excess calories Surgical History History of esophagogastroduodenoscopy (EGD) History of colonoscopy History of arthroscopy of right shoulder History of laparoscopic cholecystectomy Status post laser lithotripsy of ureteral calculus History of bunionectomy of left great toe History of cranioplasty History of shoulder surgery Status post right knee replacement Family History Father Emphysema of lung Mother Hypertension Maternal Grandmother No problems noted. Maternal Grandfather No problems noted. Paternal Grandmother No problems noted. Paternal Grandfather No problems noted. Maternal Aunt Diabetes Sister No problems noted. Son No problems noted. Daughter No problems noted. Social History Household Members: Spouse and Other Household Members Other:: mother,daughter Housing: House Are you a primary urgent care technician to a significant other at home: No Do you presently have visiting nurse or other home services: Yes (MAINTENANCE DIRECTOR) Alcohol intake: never Patient Tobacco Use Status: Never used Tobacco e-Cigarette/Vaping Use: Never Used service: No Current occupational status: unemployed Current occupation: rt handed Cognitive needs: No Hearing needs: No Vision needs: No Review of Systems Const All systems reviewed & are unremarkable except as noted in HPI and below Physical Exam Vital Signs: Last Vital Signs Temp 97.1 F 03/14/24 12:50 Pulse 73 03/14/24 12:50 BP 130/80 03/14/24 12:50 Pulse Ox 96 03/14/24 12:50 Oxygen Delivery Method Room Air 03/14/24 12:50 BMI result Body Mass Index 31.4 Const General: cooperative, healthy appearing, comfortable and no acute distress Orientation/consciousness: patient oriented x3 Limitations: no limitations HEENT Head: Yes normal to inspection Ears: external ears normal and TM's normal bilaterally General nose exam: Normal external nose present, Normal nares present and Nasal discharge present Face and sinus: Yes normal facial exam, Yes sinuses nontender and Yes face symmetric Mouth: Normal oral and palatal mucosa present, lip normal, tongue normal and moist mucous membranes Throat: Yes uvula midline, Yes posterior oropharynx abnormal (Erythema) and Yes cobblestoning Eyes General: appearance normal, both eyes and all related structures Neck Neck: Yes normal visual inspection Resp Effort & Inspection: normal respiratory effort, able to speak in complete sentences, Actively coughing, no respiratory distress, not tachypneic, no tripod positioning and no use of accessory muscles Auscultation: clear to auscultation bilaterally Cardio Rate: regular rate Rhythm: regular rhythm Heart sounds: normal S1 and S2 Skin General skin exam: no rashes or lesions noted Neuro General: patient oriented x3 Extrem General: Yes normal to inspection and Yes no clubbing, cyanosis or edema Assessment & Plan Assessment & Plan (1) URI (upper respiratory infection): Code(s): J06.9 - Acute upper respiratory infection, unspecified Qualifiers: URI type: unspecified viral URI Qualified Code(s): J06.9 - Acute upper respiratory infection, unspecified Plan: Sent flu COVID and RSV test, advised likely viral laryngitis but could have some allergies that are exacerbating her issue. Recommended daily allergy pill, [id number] medications to treat her symptoms as well as hot tea with honey to soothe her throat. Advised if the swelling of her lymph nodes in her neck does not resolve in the next week or 2 to follow up with her primary care doctor. Orders: Orders SARS-CoV2/FLU/RSV Today J06.9 - Acute upper respiratory infection, unspecified Coding Level of Care Code Est Pt Level 3 (95188) Diagnoses Viral upper respiratory tract infection J06.9 URI type: unspecified viral URI
--- OUTSIDE RECORDS SUMMARY | 2024-03-14 12:50 | XMS_ITS | Continuity of Care Document ---
Author Organization [facility] Address [address] [facility], 3r d Floor, [address] [place] [address]- Care Team Providers Care Student Affairs Vice President Name Role Phone Padma MAYO, Lakshmi Schmidt Primary Care Physician [place] [facility] [place] Date(s): 07/31/22 - 08/30/22 [facility] [address], [address], [address] [place] [id number] Allergies, Adverse Reactions, Alerts No Known [...] Replace Required Details, Route to Pharmacy Electronically, [facility] #[id number], 922.00, cm, 08/08... Start Date: 08/08/22 Status: Ordered [...] 120 tablet, 0 Refills, Maintenance, 06/29/22 14:58:00EDT, [facility] #[id number], Partial fill upon patient request if the [...] 1 Refills, Maintenance, 08/08/22 10:48:00 EDT, Capsule, [facility] #06551, Instructions in Argentine please. MassPAT checked, 154.94, cm, 08/08/22 10:05:00 EDT, Height, 76.7, kg, 01/06... Start Date: 08/08/22 Status: Ordered pregabalin 25 mg oral capsule See Instructions, One 25mg cap by mouth in addition to 150mg dose twice daily for a total of 175mg BID, # 60 capsule, 5 Refills, Maintenance, 08/02/22 12:32:00 EDT, [facility] #[id number], Instructions in Argentine please. MassPAT checked, 154.94,... Start Date: 08/02/22 [...] Physician Member Role: PCP Address: Address: [address] [place] [address]- Care Team Related Persons Name: RAMONABEIX Address: [address] [address]
--- OUTSIDE RECORDS SUMMARY | 2024-03-14 12:50 | XMS_ITS | Continuity of Care Document ---
Author Organization [facility] Address [address] [facility], 3r d Floor, [address] [place] [address]- Care Team Providers Care Chief Design Engineer Name Role Phone Padma MAYO, Lakshmi Schmidt Primary Care Physician [place] [facility] [place](s): 08/08/22 - 09/07/22 [facility] [address], [address], [address] [place] [id number] Attending Physician: Louis Jackson Admitting Physician: [...] Replace Required Details, Route to Pharmacy Electronically, [facility] #[id number], 154.94, cm, 08/08... Start Date: 08/08/22 Status: [...] 120 tablet, 0 Refills, Maintenance, 06/29/22 14:58:00EDT, [facility] #[id number], Partial fill upon patient request if the [...] 1 Refills, Maintenance, 08/08/22 10:48:00 EDT, Capsule, [facility] #[id number], Instructions in Latvian please. MassPAT checked, 154.94, cm, 08/08/22 10:05:00 EDT, Height, 76.7, kg, 01/06... Start Date: 08/08/22 Status: Ordered pregabalin 25 mg oral capsule See Instructions, One 25mg cap by mouth in addition to 150mg dose twice daily for a total of 175mg BID, # 60 capsule, 5 Refills, Maintenance, 08/02/22 12:32:00 EDT, [facility] #[id number], Instructions in Latvian please. MassPAT checked, 154.94,... Start Date: 08/02/22 [...] 100 in lifetime) entered on: 06/02/22 Sex Note * Event Display: Non BH Lab Results Authored Date: [id number] Patient Care team information Care Team Personnel Name: Padma MAYO , Lakshmi Schmidt Position: Reference Physician Member Role: PCP Address: Address: [address] [place] [address]- Care Team Related Persons Name: KURTIS NAVARRO Address: [address] [address]
--- OUTSIDE RECORDS SUMMARY | 2024-03-14 12:50 | XMS_ITS | Continuity of Care Document ---
Author Organization [facility] Address [address] [place] [address]- Care Team Providers Care Boat Assembler Name Role Phone Padma MAYO, Lakshmi Schmidt Primary Care Physician [id number] Date[facility]23 - 06/24/[address] [address]- Attending Physician: Kimmy Rowell MD Admitting Physician: [...] Replace Required Details, Route to Pharmacy Electronically, [facility] #[id number], 154.94, cm, 10/16... Start Date: 05/15/23 Status: [...] 120 tablet, 0 Refills, Maintenance, 06/29/22 14:58:00EDT, [facility] #[id number], Partial fill upon patient request if the [...] 5 Refills, Maintenance, 05/15/23 17:09:00 EDT, Capsule, [facility] #[id number], Instructions in Libyan please. MassPAT checked, 154.94, cm, 10/16/22 10:08:00 EST, Height Start Date: 8/8/23 Status: Ordered pregabalin 25 mg oral capsule See Instructions, One 25mg cap by mouth in addition to 150mg dose twice daily for a total of 175mg BID, # 60 capsule, 5 Refills, Maintenance, 05/15/23 17:10:00 EDT, [facility] #[id number], Instructions in Libyan please. MassPAT checked, 154.94,... Start Date: 05/15/23 [...] Physician Member Role: PCP Address: Address: [address] [place] [address]- Care Team Related Persons Name: KURTIS NAVARRO Address: [address] [address]
--- OUTSIDE RECORDS SUMMARY | 2024-03-14 12:50 | XMS_ITS | Continuity of Care Document ---
Author Organization [facility] Address [address] [facility], [address]r d Floor, [address] [place] [address]- Care Team Providers Care Central Office Equipment Installer Name Role Phone Padma MAYO, Lakshmi Schmidt Primary Care Physician [place] [facility] [place](s): 10/16/22 - 11/15/22 [facility] [address], [address], [address] [place] [id number] Attending Physician: Louis Jackson Admitting Physician: [...] Replace Required Details, Route to Pharmacy Electronically, [facility] #[id number], 154.94, cm, 08/08... Start Date: 08/08/22 Status: [...] 120 tablet, 0 Refills, Maintenance, 06/29/22 14:58:00EDT, [facility] #[id number], Partial fill upon patient request if the [...] 1 Refills, Maintenance, 08/08/22 10:48:00 EDT, Capsule, [facility] #[id number], Instructions in Azerbaijani please. MassPAT checked, 154.94, cm, 08/08/22 10:05:00 EDT, Height, 76.7, kg, 01/06... Start Date: 08/08/22 Status: Ordered pregabalin 25 mg oral capsule See Instructions, One 25mg cap by mouth in addition to 150mg dose twice daily for a total of 175mg BID, # 60 capsule, 5 Refills, Maintenance, 08/02/22 12:32:00 EDT, [facility] #[id number], Instructions in Azerbaijani please. MassPAT checked, 154.94,... Start Date: 08/02/22 [...] Display: Non BH Lab Results Authored Date: [id number] Patient Care team information Care Team Personnel Name: Padma MAYO , Lakshmi Schmdit Position: Reference Physician Member Role: PCP Address: Address: [address] [place] [address]- Care Team Related Persons Name: KURTIS NAVARRO Address: [address] [address]
== END 2024-03-14 13:48 | disposition home or self-care (01) ==
PROVIDERS: PCP Internal Medicine; Visit Provider Physician Assistant
DX: J06.9 Acute upper respiratory infection, unspecified (principal)
CPT/HCPCS: 99213

== ENCOUNTER 2024-03-14 13:25 | Outpatient (REF) | payer MEDICARE, SELFPAY ==
[2024-03-14 17:50] LABS: Influenza A PCR NEGATIVE (Negative); Influenza B PCR NEGATIVE (Negative); Resp Syncy Virus RNA Qual PCR NEGATIVE (Negative); SARS COV2 PCR INHOUSE NEGATIVE (Negative)
== END 2024-03-14 13:26 | disposition home or self-care (01) ==
LOC: HO.LAB 13:25
PROVIDERS: Visit Provider Physician Assistant
DX: J06.9 Acute upper respiratory infection, unspecified (principal)
CPT/HCPCS: 0241U

== ENCOUNTER 2024-03-17 16:06 | Outpatient (AMB) | payer MEDICARE, SELFPAY ==
[2024-03-17 16:10] VITALS: BP 122/74; PULSE 78; TEMP 36.8; O2SAT 97; BMI 31.4
--- NOTE | 2024-03-17 16:10 | MHC.OFFWIV ---
Intake Vital Signs 03/17/24 16:10 Height 5 ft 1 in Weight 166 lb BMI 31.4 BP 122/74 Blood Pressure Location Rt brachial Position Sitting Pulse 78 Pulse Source Pulse Oximeter Temp 98.2 F Temp Source Oral Pulse Oximetry (%) 97 Oxygen Delivery Method Room Air Intake Visit Reasons: EP Sore throat Intake Note: pt is here for c.o sore throat for 6 days Patient Tobacco Use Status: Never used Tobacco Allergies No Known Allergies [No Known Allergies*] Allergy (Verified 03/17/24 16:10) Do you need a note to return to daycare/school/sports/work: No HPI HPI Comments History of Present Illness Details Patient is a 68-year-old female complaining of a sore throat x6 days. She states the left side hurts more than the right side and she has neck swelling on that side as well. She denies any dental pain, ear pain, fevers, sinus pain or head congestion. She does endorse a slight dry cough. She has been using Mucinex for 3 days with no improvement. She states nobody at her house is sick. She is worried because she has surgery on her hip scheduled for April 03 and she wants to be healthy for that date. She was seen in this clinic 3 days ago and tested for flu, COVID and RSV, she was negative for all 3. [facility] Medical History Positional lightheadedness Lumbago with sciatica, right side Recurrent kidney stones Sleep apnea Renal calculi Splenic artery aneurysm Shoulder pain, right Low back pain at multiple sites Varices of other sites Kidney stone on left side Lumbago with sciatica, left side Trigeminal neuralgia of right side of face Seronegative rheumatoid arthritis Nephrolithiasis Loose right total knee arthroplasty Gastroesophageal reflux disease Hiatal hernia Tailor's bunion of left foot Fibromyalgia Osteoarthritis Impaired fasting glucose Insomnia Cervical spondylosis without myelopathy Autoimmune urticaria Morbid obesity due to excess calories Surgical History History of esophagogastroduodenoscopy (EGD) History of colonoscopy History of arthroscopy of right shoulder History of laparoscopic cholecystectomy Status post laser lithotripsy of ureteral calculus History of bunionectomy of left great toe History of cranioplasty History of shoulder surgery Status post right knee replacement Family History Father Emphysema of lung Mother Hypertension Maternal Grandmother No problems noted. Maternal Grandfather No problems noted. Paternal Grandmother No problems noted. Paternal Grandfather No problems noted. Maternal Aunt Diabetes Sister No problems noted. Son No problems noted. Daughter No problems noted. 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 (VOTING MACHINE MECHANIC) Alcohol intake: never Patient Tobacco Use Status: Never used Tobacco e-Cigarette/Vaping Use: Never Used service: No Current occupational status: unemployed Current occupation: rt handed Cognitive needs: No Hearing needs: No Vision needs: No Review of Systems Const All systems reviewed & are unremarkable except as noted in HPI and below Physical Exam Vital Signs: Last Vital Signs Temp 98.2 F 03/17/24 16:10 Pulse 78 03/17/24 16:10 BP 122/74 03/17/24 16:10 Pulse Ox 97 03/17/24 16:10 Oxygen Delivery Method Room Air 03/17/24 16:10 BMI result Body Mass Index 31.4 Const General: cooperative, healthy appearing, comfortable and no acute distress Orientation/consciousness: patient oriented x3 Limitations: no limitations HEENT Head: Yes normal to inspection Ears: hearing grossly normal bilaterally, external ears normal and TM's normal bilaterally General nose exam: Normal external nose present, Normal nares present and No nasal discharge present Face and sinus: Yes normal facial exam and Yes sinuses nontender Mouth: Normal oral and palatal mucosa present, lip normal, tongue normal and moist mucous membranes Teeth and gingiva: dentition normal and gingiva normal Throat: Yes tonsils normal, Yes uvula midline and Yes posterior oropharynx abnormal (Erythematous, difficult to see on exam) Eyes General: appearance normal, both eyes and all related structures Neck Neck: Yes trachea midline, Yes supple and Yes lymphadenopathy (left side) Resp Effort & Inspection: normal respiratory effort, able to speak in complete sentences, no respiratory distress, not tachypneic, no tripod positioning and no use of accessory muscles Skin General skin exam: no rashes or lesions noted Neuro General: patient oriented x3 Extrem General: Yes normal to inspection and Yes no clubbing, cyanosis or edema Assessment & Plan Assessment & Plan (1) URI (upper respiratory infection): Code(s): J06.9 - Acute upper respiratory infection, unspecified Qualifiers: URI type: unspecified viral URI Qualified Code(s): J06.9 - Acute upper respiratory infection, unspecified Plan: Strep negative today. As her sore throat is persisting, and she has lymphadenopathy, we will treat with amoxicillin. Again recommended increasing her fluids as well as taking a daily allergy pill. Advised to follow up with her primary care doctor if no resolution with her symptoms. Plan see above Medications: New amoxicillin 500 mg PO Q12H 20 caps 0RF Coding Level of Care Code Est Pt Level 3 (59063) Diagnoses Viral upper respiratory tract infection J06.9 URI type: unspecified viral URI
== END 2024-03-17 17:00 | disposition home or self-care (01) ==
PROVIDERS: PCP Internal Medicine; Visit Provider Physician Assistant
DX: J06.9 Acute upper respiratory infection, unspecified (principal); J02.9 Acute pharyngitis, unspecified
CPT/HCPCS: 87880; 99213

== ENCOUNTER 2024-04-30 11:05 | Outpatient (REF) | payer MEDICARE, SELFPAY ==
--- NOTE | ~2024-04-30 | MM_ITS ---
EXAMINATION: BONE DENSITOMETRY CLINICAL INDICATION: Asymptomatic menopausal state. COMPARISON: Previous BD dated 04/21/2022 and baseline BD dated 10/09/2008. TECHNIQUE: Using a [employer] DXA System (software version: 13.1) manufactured by [employer], dual-energy x-ray absorptiometry was performed of the lumbar spine and left hip. The images are of good technical quality. Summary results are attached. FINDINGS: LEFT FEMUR, NECK: Current: BMD 0.998 g/cm2, Z-score 1.0, T-score -0.3, normal. Prior: BMD 0.959 g/cm2. Baseline: BMD 0.993 g/cm2. LEFT FEMUR, TOTAL: Current: BMD 1.153 g/cm2, Z-score 2.2, T-score 1.1, normal, 1.2% increase from previous, 3.0% decrease from baseline (<5% change is not significant). Prior: BMD 1.139 g/cm2. Baseline: BMD 1.189 g/cm2. AP SPINE L1-L4 (excluding L3): The data of L1-L4 has been changed to exclude the L3 vertebral body, because degenerative sclerosis at this level may cause overestimation of lumbar spine density. Current: BMD 1.234 g/cm2, Z-score 1.8, T-score 0.5, normal, 2.2% decrease from previous, 10.1% decrease from baseline (<5% change is not significant). Prior: BMD 1.262 g/cm2. Baseline: BMD 1.372 g/cm2. IDENTIFIED RISK FACTORS: Early menopause, secondary osteoporosis, rheumatoid arthritis, anticonvulsant. HISTORY OF FRACTURE: None listed. MEDICATIONS: Vitamin D. MM/XR DEXA axial skeleton IMPRESSION: 1. DIAGNOSIS: Normal bone density based on the lowest T-score value of -0.3 in the femoral neck applying World Health Organization criteria. 2. 10-YEAR FRACTURE RISK PREDICTION, FRAX: According to the guidelines, FRAX calculation should only be performed on patients in the osteopenia bone density category. Therefore, FRAX was not performed on this patient. 3. Treatment Recommendations: NOF guidelines recommend consideration for treatment in postmenopausal women and men age 50 and older presenting with the following: -A hip or vertebral (clinical or morphometric) fracture. -T-score less than or equal to -2.5 at the femoral neck or spine after appropriate evaluation to exclude secondary causes. -Low bone mass at the hip or spine and a 10-year fracture probability by FRAX of greater than or equal to 3% for hip fracture or greater than or equal to 20% for major osteoporotic fracture based on the [place] adapted WHO algorithm. 4. Other Recommendations: All treatment decisions require clinical judgment and consideration of individual patient factors, including patient preferences, comorbidities, previous drug use, risk factors not captured in the FRAX model (e.g. frailty, falls, vitamin D deficiency, increased bone turnover, interval significant decline in bone density) and possible under or overestimation of fracture risk by FRAX. FUTURE SCAN RECOMMENDATION: People with diagnosed cases of osteoporosis or at high risk for fracture should have regular bone mineral density tests. For patients eligible for Medicare, routine testing is allowed once every 2 years. The testing frequency can be increased to one year for patients who have rapidly progressing disease, those who are receiving or discontinuing medical therapy to restore bone mass, or have additional risk factors.
== END 2024-04-30 11:06 | disposition home or self-care (01) ==
LOC: HO.MAMMO 11:05
PROVIDERS: PCP Internal Medicine; Visit Provider Internal Medicine
DX: Z13.820 Encounter for screening for osteoporosis (principal); Z78.0 Asymptomatic menopausal state
CPT/HCPCS: 77080

== ENCOUNTER 2024-06-16 16:02 | Outpatient (AMB) | payer MEDICARE, SELFPAY ==
[2024-06-16 16:25] VITALS: BP 128/80; PULSE 85; O2SAT 96; BMI 31.2
--- NOTE | 2024-06-16 16:25 | MHC.OFFVIS ---
Vital Signs 06/16/24 16:25 Height 5 ft 1 in Weight 165 lb BMI 31.2 BP 128/80 Blood Pressure Location Lt brachial Position Sitting Pulse 85 Pulse Source Pulse Oximeter Pulse Oximetry (%) 96 Oxygen Delivery Method Room Air Intake Visit Reasons: RA/CM Intake Note: Patient presents for follow up on RA, she was last seen on 12/18/2023. Allergies No Known Allergies [No Known Allergies*] Allergy (Verified 03/17/24 16:10) Medication List - Last Reconciled 06/16/24 by Guillermo Lakhani MD carbamazepine 400 mg PO BID diclofenac sodium 1% topical Humira(CF) (adalimumab) 40 mg (0.4 mL) subcut Q2W NS hydroxychloroquine 300 mg (1.5 x 200 mg) PO DAILY pregabalin 150 mg PO BID pregabalin 25 mg PO BID triamcinolone acetonide 0.1% 1 appl topical BID 10 days HPI Comments Details: This is a 68-year-old female with seronegative rheumatoid arthritis who presents for follow-up. On Humira 40 mg every other week and hydroxychloroquine 300 mg daily. She states that she had a right hip replacement 3 months ago. She states that the surgery was uneventful and she is doing well overall. Compliant with her meds [facility] Medical History Positional lightheadedness Lumbago with sciatica, right side Recurrent kidney stones Sleep apnea Renal calculi Splenic artery aneurysm Shoulder pain, right Low back pain at multiple sites Varices of other sites Kidney stone on left side Lumbago with sciatica, left side Trigeminal neuralgia of right side of face Seronegative rheumatoid arthritis Nephrolithiasis Loose right total knee arthroplasty Gastroesophageal reflux disease Hiatal hernia Tailor's bunion of left foot Fibromyalgia Osteoarthritis Impaired fasting glucose Insomnia Cervical spondylosis without myelopathy Autoimmune urticaria Morbid obesity due to excess calories Surgical History S/P hip replacement History of esophagogastroduodenoscopy (EGD) History of colonoscopy History of arthroscopy of right shoulder History of laparoscopic cholecystectomy Status post laser lithotripsy of ureteral calculus History of bunionectomy of left great toe History of cranioplasty History of shoulder surgery Status post right knee replacement Family History Father Emphysema of lung Mother Hypertension Maternal Grandmother No problems noted. Maternal Grandfather No problems noted. Paternal Grandmother No problems noted. Paternal Grandfather No problems noted. Maternal Aunt Diabetes Sister No problems noted. Son No problems noted. Daughter No problems noted. 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) Alcohol intake: never Patient Tobacco Use Status: Never used Tobacco e-Cigarette/Vaping Use: Never Used service: No Current occupational status: unemployed Current occupation: rt handed Cognitive needs: No Hearing needs: No Vision needs: No Review of Systems Musc Reports arthralgias Physical Exam Vital Signs: Last Vital Signs Pulse 85 06/16/24 16:25 BP 128/80 06/16/24 16:25 Pulse Ox 96 06/16/24 16:25 Oxygen Delivery Method Room Air 06/16/24 16:25 BMI result Body Mass Index 31.2 Const General: cooperative, healthy appearing and comfortable Nutritional Appearance: obese Orientation/consciousness: patient oriented x3 Limitations: no limitations HEENT Head: Yes normocephalic and Yes atraumatic Mouth: moist mucous membranes Resp Effort & Inspection: normal respiratory effort and able to speak in complete sentences Auscultation: clear to auscultation bilaterally Cardio Rate: regular rate Neuro General: patient oriented x3 Extrem Other: Few fibromyalgia tender points No active synovitis today Results Reviewed Results Reviewed: 06/21/23: XR KNEE, LEFT. XR KNEE AP STANDING FINDINGS: Prosthetic components of the bilateral total knee arthroplasties are appropriately aligned without periprosthetic fracture or abnormal lucency. No component migration. No left knee joint effusion is presently seen. IMPRESSION: Appropriate alignment of the bilateral total knee arthroplasties, without evidence of complications. 06/18/23: XR FOOT, RIGHT FINDINGS: No acute fracture or dislocation. Joint space narrowing with marginal osteophytes at the 1st metatarsophalangeal joint and hallux sesamoids, unchanged. Plantar and dorsal calcaneal spurs are redemonstrated. Dystrophic calcification associated with the distal Achilles tendon has slightly increased, likely indicating chronic tendinopathy. IMPRESSION: 1. [id number] degenerative arthritis at the 1st metatarsophalangeal joint and hallux sesamoids, unchanged. 2. Plantar and dorsal calcaneal spurs, unchanged. 3. Dystrophic calcification associated with the distal Achilles tendon has slightly increased, likely indicating chronic tendinopathy. Assessment & Plan Assessment & Plan (1) Seronegative rheumatoid arthritis: Comment: Seronegative RA diagnosed in [place]. [facility] 2007 - has been on Plaquenil 200 mg BID and Enbrel weekly since then. MTX dates unknown. ENbrel DC 05/30 ineffective Humira 05/30 Code(s): M06.00 - Rheumatoid arthritis without rheumatoid factor, unspecified site Category: Medical Plan: This is a 68-year-old female with seronegative RA returns for follow-up. On Humira 40 mg every other week and hydroxychloroquine 300 mg daily. Doing well with no active synovitis on exam. Continue current meds Labs before next visit in 6 months (2) Long-term use of hydroxychloroquine: Code(s): Z79.899 - Other terminal operations supervisor (current) drug therapy Category: Medical Plan: Follow-up regularly with Ophthalmology Plan I spent 22 minutes reviewing patient's chart, evaluating patient, placing orders, counseling patient and documenting in the chart Orders: Orders Comprehensive Met. Panel 6 Months M06.09 - Rheumatoid arthritis without rheumatoid factor, multiple sites, Z79.899 - Other terminal operations supervisor (current) drug therapy Erythrocyte Sedimentation Rate 6 Months M06.09 - Rheumatoid arthritis without rheumatoid factor, multiple sites, Z79.899 - Other senior care (current) drug therapy Complete Blood Count Auto Diff 6 Months M06.09 - Rheumatoid arthritis without rheumatoid factor, multiple sites, Z79.899 - Other terminal operations supervisor (current) drug therapy C Reactive Protein 6 Months M06.09 - Rheumatoid arthritis without rheumatoid factor, multiple sites, Z79.899 - Other senior care (current) drug therapy Medications: Refilled hydroxychloroquine 300 mg (1.5 x 200 mg) PO DAILY 135 tabs 1RF Coding Level of Care Code Est Pt Level 4 (19704) Diagnoses Seronegative rheumatoid arthritis M06.00 Long-term use of hydroxychloroquine Z79.899
== END 2024-06-16 16:46 | disposition home or self-care (01) ==
PROVIDERS: PCP Internal Medicine; Visit Provider Student in an Organized Health Care Education/Training Program
DX: M06.00 Rheumatoid arthritis without rheumatoid factor, unspecified site (principal); Z79.899 Other long term (current) drug therapy
CPT/HCPCS: 99214

== ENCOUNTER → 2024-06-16 16:02 | Outpatient (BNVA) | payer MEDICARE, SELFPAY | PROVIDERS: PCP Internal Medicine; Visit Provider Student in an Organized Health Care Education/Training Program | DX: M06.00 Rheumatoid arthritis without rheumatoid factor, unspecified site (principal); Z79.899 Other long term (current) drug therapy | CPT/HCPCS: 99212 ==

== ENCOUNTER 2024-06-30 10:36 | Outpatient (REF) | payer MEDICARE, SELFPAY ==
--- NOTE | ~2024-06-30 | US_ITS ---
EXAMINATION: US RETROPERITONEAL LIMITED (RENAL ONLY) CLINICAL INFORMATION: Calculus of kidney. COMPARISON: CT abdomen and pelvis 11/16/2023. X-ray abdomen KUB 05/23/2023 and 02/01/2023. Renal ultrasound 09/20/2022 and 09/20/2021. TECHNIQUE: Real-time imaging of the kidneys. FINDINGS: RIGHT KIDNEY: 11.9 x 5.7 x 6.0 cm (SAG x AP x TRV). The kidney is normal in size, contour, and echogenicity. Renal cortical thickness is normal. No calculi or focal parenchymal lesions. No hydronephrosis. There are atherosclerotic calcifications. LEFT KIDNEY: 1.6 x 5.4 x 5.1 cm (SAG x AP x TRV). The kidney is normal in size, contour, and echogenicity. Renal cortical thickness is normal. No calculi or focal parenchymal lesions. No hydronephrosis. There are atherosclerotic calcifications. ADDITIONAL FINDINGS: Splenorenal varices are incidentally noted. US/US renal BI IMPRESSION: Unremarkable ultrasound appearance of the kidneys. Electronically signed by: Serg Samayoa MD 07/03/2024 01:41 PM EDT
== END 2024-06-30 10:37 | disposition home or self-care (01) ==
LOC: HO.US 10:36
PROVIDERS: PCP Internal Medicine; Visit Provider Nurse Practitioner Family
DX: N20.0 Calculus of kidney (principal)
CPT/HCPCS: 76775

== ENCOUNTER 2024-07-07 10:23 | Outpatient (AMB) | payer MEDICARE, SELFPAY ==
--- NOTE | 2024-07-07 10:27 | A.OFFVIS_ITS ---
Intake Visit Reasons: 6m/US(set) Intake Note: Patient is present for 6m/us Urology Medication:none Antibiotic Allergy:none Blood Thinner:none Paper Twister Tender Required: No Allergies No Known Allergies [No Known Allergies*] Allergy (Verified 07/07/24 10:41) Medication List - Last Reconciled 07/07/24 by TIAN Khan carbamazepine 400 mg PO BID diclofenac sodium 1% topical Humira(CF) (adalimumab) 40 mg (0.4 mL) subcut Q2W NS hydroxychloroquine 300 mg (1.5 x 200 mg) PO DAILY pregabalin 150 mg PO BID pregabalin 25 mg PO BID triamcinolone acetonide 0.1% 1 appl topical BID 10 days HPI Comments Details: Day is a pleasant 68 year old [place]ish speaking female patient Dr. Rouse. She has a past medical history of nephrolithiasis, sleep apnea, splenic artery aneurysm, trigeminal neuralgia, rheumatoid arthritis, GERD, hiatal hernia, fibromyalgia, osteoarthritis, insomnia, autoimmune urticaria, obesity, and cervical spondylosis. She presents to the office today for follow-up of her longstanding history of nephrolithiasis. Recent renal imaging results reviewed with the patient today. Bilateral kidneys are normal in size, contour, and echogenicity. No calculi, lesions, and or hydronephrosis noted bilaterally. In discussion with the patient today she reports to be doing and feeling well urologically. She discusses at length since her last office visit here approximately 6 months ago she has since had a right hip replacement. She discusses continuing to experience low-back pain in his following up with her PCP regarding this issue. She discusses her longstanding history of fibromyalgia and arthritis. When asked she currently denies any bothersome urinary issues or concerns. In office urinalysis results reviewed with the patient today. 2+ leukocytes. However she denies any UTI like symptoms at this time. When asked she denies urinary urgency, urinary frequency, incontinence, nocturia, hematuria, dysuria, foul smelling urine, changes to urinary stream, flank pain, fever, and or chills. She is happy with her current voiding parameters. She reports to be drinking plenty of water daily. She otherwise offers no other issues or concerns at this time. [facility] Medical History Positional lightheadedness Lumbago with sciatica, right side Recurrent kidney stones Sleep apnea Renal calculi Splenic artery aneurysm Shoulder pain, right Low back pain at multiple sites Varices of other sites Kidney stone on left side Lumbago with sciatica, left side Trigeminal neuralgia of right side of face Seronegative rheumatoid arthritis Nephrolithiasis Loose right total knee arthroplasty Gastroesophageal reflux disease Hiatal hernia Tailor's bunion of left foot Fibromyalgia Osteoarthritis Impaired fasting glucose Insomnia Cervical spondylosis without myelopathy Autoimmune urticaria Morbid obesity due to excess calories Surgical History S/P hip replacement History of esophagogastroduodenoscopy (EGD) History of colonoscopy History of arthroscopy of right shoulder History of laparoscopic cholecystectomy Status post laser lithotripsy of ureteral calculus History of bunionectomy of left great toe History of cranioplasty History of shoulder surgery Status post right knee replacement Family History Father Emphysema of lung Mother Hypertension Maternal Grandmother No problems noted. Maternal Grandfather No problems noted. Paternal Grandmother No problems noted. Paternal Grandfather No problems noted. Maternal Aunt Diabetes Sister No problems noted. Son No problems noted. Daughter No problems noted. Social History Household Members: Spouse and Other Household Members Other:: mother,daughter Housing: House Are you a primary ambulatory care coordinator to a significant other at home: No Do you presently have visiting nurse or other home services: Yes ([employer]) Alcohol intake: never Patient Tobacco Use Status: Never used Tobacco e-Cigarette/Vaping Use: Never Used service: No Current occupational status: unemployed Current occupation: rt handed Cognitive needs: No Hearing needs: No Vision needs: No Review of Systems Const Reports as per HPI Eyes Reports no additional complaints ENT Reports no additional complaints Card Reports as per HPI Resp Reports no additional complaints GI Reports as per HPI Reports as per HPI Musc Reports as per HPI Neuro Reports as per HPI Psych Reports no additional complaints Physical Exam Const General: cooperative, healthy appearing, comfortable, no acute distress, well developed, alert and awake Orientation/consciousness: patient oriented x3 HEENT Head: Yes normal to inspection, Yes normocephalic and Yes atraumatic Eyes General: appearance normal, both eyes and all related structures Neck Neck: Yes normal visual inspection and Yes trachea midline Chest Chest palpation & inspection: normal inspection of the chest Resp Effort & Inspection: normal respiratory effort and able to speak in complete sentences Cardio Rhythm: regular rhythm GI Inspection: Yes normal to inspection General: Yes no CVA tenderness Back/Spine/Pelvis Back: no CVA tenderness Neuro General: patient oriented x3 Psych Appearance: grossly normal Mental Status: mental status grossly normal Speech and movement: Normal speech and movement present and Clear speech present Affect: normal affect Attitude: cooperative Thought process: Normal thought process present Thought content: Normal thought content present Insight: Fair insight present (Psych) Judgement: Fair judgement present (Psych) Results AMB Urinalysis, Automated UA Leukoctes 125 Jocelyn/uL Last Edit by Cher Grigsby CCM on 07/07/24 10:40 UA Nitrite Negative Last Edit by Cher Grigsby [facility] on 07/07/24 10:40 UA Urobilinogen 0.2 mg/dL Last Edit by Cher Grigsby [facility] on 07/07/24 10:4 0 UA Protein 15 mg/dL Last Edit by Cher Grigsby [facility] on 07/07/24 10:40 UA pH 6.0 Last Edit by Cher Grigsby [facility] on 07/07/24 10:40 UA Blood 0 Rm/uL Last Edit by Cher Grigsby [facility] on 07/07/24 10:40 UA Specific [place] 1.025 Last Edit by Cher Grigsby CCM on 07/07/24 10: 40 UA Ketone Positive Last Edit by Cher Grigsby [facility] on 07/07/24 10:40 UA Bilirubin 1 mg/dL Last Edit by Cher Grigsby [facility] on 07/07/24 10:40 UA Glucose 0 mg/dL Last Edit by Cher Grigsby [facility] on 07/07/24 10:40 Results Reviewed Results Reviewed: Laboratory Last Values Urine pH (Auto) 6.0 07/07/24 10:39 Specific [place] (Auto) 1.025 07/07/24 10:39 Urine Protein (Auto) 15 mg/dL 07/07/24 10:39 Glucose (UA)(Auto) 0 mg/dL 07/07/24 10:39 Urine Ketones (Auto) Positive 07/07/24 10:39 Urine Blood (Auto) 0 Rm/uL 07/07/24 10:39 Urine Nitrite (Auto) Negative 07/07/24 10:39 Urine Bilirubin (Auto) 1 mg/dL 07/07/24 10:39 Urine Urobilinogen (Auto) 0.2 mg/dL 07/07/24 10:39 Leukocyte Esterase (Auto) 125 Jocelyn/uL 07/07/24 10:39 Date of Service: 06/30/24 EXAMINATION: US RETROPERITONEAL LIMITED (RENAL ONLY) FINDINGS: RIGHT KIDNEY: 11.9 x 5.7 x 6.0 cm (SAG x AP x TRV). The kidney is normal in size, contour, and echogenicity. Renal cortical thickness is normal. No calculi or focal parenchymal lesions. No hydronephrosis. There are atherosclerotic calcifications. LEFT KIDNEY: 1.6 x 5.4 x 5.1 cm (SAG x AP x TRV). The kidney is normal in size, contour, and echogenicity. Renal cortical thickness is normal. No calculi or focal parenchymal lesions. No hydronephrosis. There are atherosclerotic calcifications. ADDITIONAL FINDINGS: Splenorenal varices are incidentally noted. IMPRESSION: Unremarkable ultrasound appearance of the kidneys. Assessment & Plan Assessment & Plan (1) Renal calculi: Code(s): N20.0 - Calculus of kidney Category: Medical (2) Recurrent kidney stones: Code(s): N20.0 - Calculus of kidney Category: Medical Plan In office urinalysis results reviewed with the patient today; as noted above. Recent renal imaging results reviewed with the patient today; as noted above. Patient currently denies any bothersome urinary issues or concerns. She reports be happy with current voiding parameters. Continue vitamin B6 as discussed and prescribed. Continue adding 1 oz of lemon juice to water daily. Continue drinking plenty of water daily. Will obtain renal ultrasound in 1 year. Follow-up in 1 year with imaging to be completed prior; or sooner with any issues, concerns, and or questions. Orders: Orders AMB Urinalysis Automated Today Z13.9 - Encounter for screening, unspecified US renal BI 1 Year N20.0 - Calculus of kidney Patient Instructions: The patient had an opportunity to ask questions regarding the treatment plan. All questions were answered. Physical exam, labs, and imaging were discussed and reviewed in detail. As well as risks, benefits, and discussion of treatment choices. No major barriers to understanding were identified. The patient expressed understanding and agreement with the above treatment plan. The patient was made aware they should contact our office by phone for worsening of their current condition, the appearance of new symptoms, or with any questions or concerns. Compliance is encouraged with any medications and follow up testing that is ordered. It is a privilege to be allowed the opportunity to participate in? your urological care.? Again, if you have any questions or concerns If you have any questions or concerns please do not hesitate to contact me. The office is [phone]. This note is constructed using voice recognition software. While every effort has been made to ensure accuracy record pressman errors may have been included. Yours sincerely, TIAN Khan Coding Level of Care Code Est Pt Level 3 (16361) Complex EM visit Add On G2211 Diagnoses Renal calculi N20.0 Recurrent kidney stones N20.0
== END 2024-07-07 10:57 | disposition home or self-care (01) ==
PROVIDERS: PCP Internal Medicine; Visit Provider Nurse Practitioner Family
DX: Z13.9 Encounter for screening, unspecified (principal); N20.0 Calculus of kidney
CPT/HCPCS: 99213; G2211

== ENCOUNTER → 2024-07-07 10:23 | Outpatient (BNVA) | payer MEDICARE, SELFPAY | PROVIDERS: PCP Internal Medicine; Visit Provider Nurse Practitioner Family | DX: N20.0 Calculus of kidney (principal) | CPT/HCPCS: 81003; 99212 ==

== ENCOUNTER 2024-09-23 11:05 | Outpatient (RCR) | payer MEDICARE, SELFPAY | END 2024-11-12 13:45 | disposition home or self-care (01) | LOC: HO.PT 11:05 | PROVIDERS: PCP Internal Medicine; Visit Provider Specialist/Technologist Athletic Trainer | DX: M54.16 Radiculopathy, lumbar region (principal) | CPT/HCPCS: 97110; 97163; 97530; 97535 ==

== ENCOUNTER 2024-10-02 13:53 | Outpatient (AMB) | payer MEDICARE, SELFPAY ==
[2024-10-02 14:09] VITALS: BP 132/70; PULSE 78; O2SAT 98; BMI 31.7
--- NOTE | 2024-10-02 14:09 | A.OFFPC_ITS ---
Vital Signs 10/02/24 14:09 Height 5 ft 1 in Weight 168 lb BMI 31.7 BP 132/70 Blood Pressure Location Rt brachial Position Sitting Pulse 78 Pulse Source Pulse Oximeter Pulse Oximetry (%) 98 Oxygen Delivery Method Room Air Intake Visit Reasons: PE Intake Note: Pt is here today for her PE: Last mammogram 10/18/23, bone density scan 04/30/24, colonoscopy 12/22/19 Allergies No Known Allergies [No Known Allergies*] Allergy (Verified 10/02/24 14:20) Medication List - Last Reconciled 10/02/24 by Lakshmi Rouse MD carbamazepine 400 mg PO BID diclofenac sodium 1% topical Humira(CF) (adalimumab) 40 mg (0.4 mL) subcut Q2W NS hydroxychloroquine 300 mg (1.5 x 200 mg) PO DAILY meloxicam 15 mg PO DAILY pregabalin 25 mg PO BID pregabalin 150 mg PO BID triamcinolone acetonide 0.1% 1 appl topical BID 10 days Tobacco use date assessed: 10/02/24 Fall risk assessment: 2 + Falls in past year Last assessed Fall Risk: 10/02/24 Dental Screening Dental Screen Date: 10/02/24 Did you have a dental visit in the last 12 months?: Yes Did you have a dental problem in the last 6 months where you did not have access to dental care?: No Was dental information given to patient?: Patient has dentist HPI PE HPI Details - The patient is a 69-year-old female pr esenting for a physical exam. - She had a normal bone density scan performed in April, up-to-date with her mammogram which was done earlier this year in October with negative findings.. - Colonoscopy performed in December 2019 re vealed internal hemorrhoids and Sigmoid diverticulosis, - Last cholesterol check in May 2023 showed normal results. However, consistent low Vitamin D levels necessitate monitoring and management. - Right shoulder pain reported, with abdon or therapeutic injections offering no relief. Surgery recommended as the next step -has seronegative rheumatoid arthritis f ollowed by rheumatology -diagnosed with obstructive sleep apnea currently using CPAP, compliant with use -has trigeminal neuralgia controlled wit h carbamazepine -history of recurrent nephrolithiasis, c urrently asymptomatic -Shingles vaccination completed. - Tetanus vaccine due, last administered in 2011. advised to get tetanus diphtheria booster administered at the pharmacy - RSV virus vaccine discussed as it is r ecommended for adults over 60. - Balance issues noted, with unsteadines s usually with sudden changes in position . Possible positional vertigo suggested. [facility] Medical History (Updated 10/02/24 @ 15:30 by Lakshmi Rouse MD) Intertrigo Vitamin D deficiency Recurrent kidney stones Sleep apnea Splenic artery aneurysm Shoulder pain, right Trigeminal neuralgia of right side of face Seronegative rheumatoid arthritis Loose right total knee arthroplasty Gastroesophageal reflux disease Hiatal hernia Tailor's bunion of left foot Fibromyalgia Osteoarthritis Impaired fasting glucose Insomnia Cervical spondylosis without myelopathy Autoimmune urticaria Morbid obesity due to excess calories Surgical History (Updated 10/02/24 @ 15:09 by Lakshmi Rouse MD) S/P hip replacement History of esophagogastroduodenoscopy (EGD) History of colonoscopy History of arthroscopy of right shoulder History of laparoscopic cholecystectomy Status post laser lithotripsy of ureteral calculus History of bunionectomy of left great toe History of cranioplasty History of shoulder surgery Status post right knee replacement Family History Father Emphysema of lung Mother Hypertension Maternal Grandmother No problems noted. Maternal Grandfather No problems noted. Paternal Grandmother No problems noted. Paternal Grandfather No problems noted. Maternal Aunt Diabetes Sister No problems noted. Son No problems noted. Daughter No problems noted. 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 1. Little interest or pleasure in doing things: not at all 2. Feeling down, depressed, or hopeless: not at all 3. Trouble falling or staying asleep, or sleeping too much: more than half the days 4. Feeling tired or having little energy: several days 5. Poor appetite or overeating: several days 6. Feeling bad about yourself - or that you are a failure or have let yourself or your family down: not at all 7. Trouble concentrating on things, such as reading the newspaper or watching television: not at all 8. Moving or speaking so slowly that other people could have noticed. Or the opposite - being so fidgety or restless that you have been moving around a lot more than usual: not at all 9. Thoughts that you would be better off or of hurting yourself in some way: not at all Total score: 4 Depression Screening Interpretation: Negative Depression Screening Done: Yes 78916 - PHQ-9 Billing: Yes Source: Developed by Drs. Raza Nova, Kassandra Munoz, Steven Velasco and colleagues, with an educational nyla from [employer]. Thrive Questionnaire Date Thrive assessed: 10/02/24 I am a: Patient What is your living situation today?: I have a steady place to live Within the past 12 months, did the food you bought not last and you didn't have the money to get more?: Never true Within the past 12 months, did you worry whether your food would run out before you got money to buy more?: Never true Do you have trouble paying for medicines?: No Do you have trouble getting transportation to medical appointments?: No Do you have trouble paying your heating and electricity bill?: No Do you have trouble taking care of your child, family member or friend?: No Do you have trouble with day-to-day activities such as bathing, preparing meals, shopping, managing finances, etc.?: Yes Are you currently unemployed and looking for a job?: No Are you interested in more education?: No Please select the resources that you would like help with: None Currently or been in a relationship where the following occur: I choose not to answer THRIVE Score: 0 AUDIT C Alcohol Use Questionnaire (AUDIT-C) 1. How often do you have a drink containing alcohol?: Never Total Score: 0 JOSÉ MANUEL-7 AMB Questionnaire JOSÉ MANUEL-7 Date JOSÉ MANUEL - 7 assessed: 10/02/24 Feeling nervous, anxious, or on edge: 0 = Not at all Not being able to stop or control worryin = Not at all Worrying too much about different things: 0 = Not at all Trouble relaxin = Not at all Being so restless that it is hard to sit still: 0 = Not at all Becoming easily annoyed or irritable: 0 = Not at all Feeling afraid as if something awful might happen: 0 = Not at all Total JOSÉ MANUEL-7 score (0-4 normal; 5-9 mild; 10-14 moderate; 15-21 severe): 0 Source: Developed by Drs. Raza Nova, Kassandra Munoz, Steven Velasco and colleagues, with an educational nyla from [employer]. JOSÉ MANUEL-7 Assessment Billing JOSÉ MANUEL-7 Assessment Tool: JOSÉ MANUEL-7 Assessment 27561 Review of Systems Const Reports no additional complaints Eyes Reports no additional complaints ENT Reports no additional complaints Card Denies chest pain, Denies irregular heart rhythm and Denies dyspnea Resp Denies cough and Denies dyspnea GI Reports no additional complaints Reports no additional complaints Musc Reports as per HPI, Reports arthralgias and Reports stiffness Skin/Breast Details: Complains of recurrent itchy rash under lower abdominal fold which she is usually present during the warm summer months Denies breast pain, Denies breast mass and Denies rash Neuro Reports no additional complaints Psych Reports no additional complaints Endo Reports no additional complaints Cole/Lymph Reports no additional complaints Aller/Immun Reports no additional complaints Physical exam (Primary Care) Vital Signs: Last Vital Signs Pulse 78 10/02/24 14:09 BP 132/70 10/02/24 14:09 Pulse Ox 98 10/02/24 14:09 Oxygen Delivery Method Room Air 10/02/24 14:09 BMI result Body Mass Index 31.7 Tobacco/Smoking Status: Tobacco use Status Tobacco use date assessed 10/02/24 10/02/24 14:15 Patient Tobacco Use Status Never used Tobacco 10/02/24 14:09 e-Cigarette/Vaping Use Never Used 10/02/24 14:09 PHQ-9: PHQ-9 Score PHQ-9: Total score 7 10/02/24 15:20 Depression Screening Interpretation: Negative Thrive Assessment: Date of Thrive Assessment Date Thrive assessed 10/02/24 10/02/24 14:15 Currently or been in a relationship where the following occur: I choose not to answer Const General: cooperative, comfortable, no acute distress, alert and awake Orientation/consciousness: patient oriented x3 [facility] General nose exam: Normal external nose present and No nasal discharge present Face and sinus: Yes face symmetric Mouth: Normal oral and palatal mucosa present, tongue normal, oropharynx normal and moist mucous membranes Eyes General: appearance normal, both eyes and all related structures Pupils: Equal, round and reactive pupils present Neck Neck: Yes full ROM, Yes no lymphadenopathy and Yes supple Chest Breast/axilla palpation: normal palpation of the breasts Resp Effort & Inspection: normal respiratory effort and able to speak in complete sentences Auscultation: clear to auscultation bilaterally Cardio Rate: regular rate Rhythm: regular rhythm Heart sounds: S1 normal heart sound present and S2 normal heart sound present GI Inspection: Yes normal to inspection Palpation (GI): Soft to palpation, nontender and no masses Auscultation: normal bowel sounds General: Yes no CVA tenderness Back/Spine/Pelvis Back: no CVA tenderness and No back tenderness Skin Other: Slight erythematous patch on lower abdominal pannus Neuro General: patient oriented x3, moves all extremities, Normal light touch and pain sensation and no focal motor deficits Cranial nerves: Yes Equal, round and reactive pupils present Cognition (Neuro): normal cognition Extrem Other: Decreased range of motion of right shoulder joint especially on abduction due to pain General: Yes no joint enlargement and Yes no pedal edema Psych Appearance: grossly normal and well kempt Mental Status: mental status grossly normal Speech and movement: Normal speech and movement present Affect: normal affect Attitude: cooperative Thought process: Normal thought process present Thought content: Normal thought content present Results Reviewed Results Reviewed: brittani: Day Purvis Age/Sex: 68/F : 1955 Unit#: [id number] Attend Dr: Guillermo Lakhani MD Re12/14/23 Status: DEP REF Location: .LAB Disch: SPEC : [id number] OSVALDO: 12/14/23 STATUS: COMP REQ : [id number] RECD: 12/14/[address]: Guillermo Lakhani MD COMP: 12/14/23 ENTERED: 12/14/[address]: Lakshmi Rouse MD ORDERED: CBC Auto Diff Test Result Flag Reference WBC 5.6 4.8-10.8 X10*3/uL RBC 4.22 4.20-5.50 X10*6/uL HGB 13.7 12.0-16.0 g/dl HCT 40.3 37.0-47.0 % MCV 95.5 80.0-98.0 fL MCH 32.5 27.0-33.0 pg MCHC 34.0 31.0-35.0 g/dl RDW 13.4 11.0-16.0 % PLT 201 # 160-400 X10*3/uL MPV 9.8 9.4-12.3 fL Neut Pct Auto 42.1 L 45-73 % ImGran Pct Auto 0.4 0.0-0.4 % Lymp Pct Auto 46.2 H 20-40 % Stanton Pct Auto 8.7 2-11 % Eos Pct Auto 1.4 0-4 % Baso Pct Auto 1.2 0-2 % NRBC Pct Auto 0.0 0.0-0.2 /100WBC ANC Neut Abs # 2.4 2.0-8.3 x10*3/uL ImGran Abs Auto 0.02 0.00-0.03 X10*3/uL Lymph Abs Auto 2.6 1.2-4.9 X10*3/uL Stanton Abs Auto 0.5 0.1-1.2 X10*3/uL Eos Abs Auto 0.1 0.0-0.4 X10*3/uL Baso Abs Auto 0.1 0.0-0.2 X10*3/uL NRBC Abs Auto 0.000 0.0-0.012 X10*3/uL RUN: 10/05/249 PAGE 1 [facility] [address] [place] [id number] Sports Equipment Repairer: Alan Schuster M.D. Specimen Inquiry Name: Day Purvis Age/Sex: 68/F : 1955 Unit#: [id number] Attend Dr: Guillermo Lakhani MD Re12/14/23 Status: DEP REF Location: [facility] Disch: SPEC : [id number] OSVALDO: 12/14/23-1207 STATUS: COMP REQ : [id number] RECD: 12/14/[address]: Guillermo Lakhani MD COMP: 12/14/23-1399 ENTERED: 12/14/23-[address]: Lakshmi Rouse MD ORDERED: CMP, C Reactive Prot Test Result Flag Reference Sodium 144 135-145 mmol/L Potassium 4.5 3.3-5.1 mmol/L CL 109 H 96-108 mmol/L CO2 31 H 22-29 mmol/L Gap 9 L 12-20 BUN 14 9-16 mg/dL Creat 0.78 0.5-1.4 mg/dL EGFR > 60 NOTE: For -Prydeinig individuals, multiply the result by 1.210. Chronic Kidney Disease: Estimated GFR < 60 mL/min/1.73m2 Severe Kidney Disease: Estimated GFR < 15 mL/min/1.73m2 Glucose, Random 90 60-115 mg/dL CA 9.0 8.4-10.2 mg/dL Total Bili 0.3 0.0-1.0 mg/dL AST (GOT) 20 5-31 U/L ALT (GPT) 26 0-31 U/L CRP < 0.10 < or = 0.50 mg/dL Protein, Total 7.2 6.5-8.0 g/dL Alb 3.9 3.5-5.0 g/dL Alk Phos 65 39-117 U/L Coding Level of Care Code Est Pt Prev Care >65y(48798) Diagnoses Annual visit for general adult medical examination with abnormal findings Z00.01 Benign paroxysmal positional vertigo H81.10 Intertrigo L30.4 Vitamin D deficiency E55.9 Partial tear of rotator cuff M75.110 Trigeminal neuralgia of right side of face G50.0 Arthritis of right shoulder region M19.011 Morbid obesity due to excess calories E66.01 Fibromyalgia M79.7 Recurrent kidney stones N20.0 Seronegative rheumatoid arthritis M06.00 Primary central sleep apnea G47.31 Sleep apnea type: primary central Additional Codes PHQ-9 - 00560 - PHQ-9 Billing: Yes ([id number]) JOSÉ MANUEL-7 Assessment Billing - JOSÉ MANUEL-7 Assessment Tool: JOSÉ MANUEL-7 Assessment 70864 ([id number]) Assessment & Plan Assessment & Plan (1) Annual visit for general adult medical examination with abnormal findings: Code(s): Z00.01 - Encounter for general adult medical examination with abnormal findings Plan: Fasting labs ordered. Continued regular dental visit every 6 months and regular eye exams, at least every 2 years. Take adequate calcium in diet and vitamin-D 3 at 2000 IU per cap once a day, in addition to weight-bearing exercises to help maintain good muscle tone and weight control. Instructed to do self-breast exam, and continue with yearly mammogram, currently up-to-date with negative findings, and had a recent bone density scan which showed normal bone results. She is up-to-date with her COVID booster, flu vaccine, pneumonia vaccine and shingles vaccine, but has not yet had her RSV vaccine, up-to-date with her colonoscopy, repeat due again in 2029. (2) Benign paroxysmal positional vertigo: Code(s): H81.10 - Benign paroxysmal vertigo, unspecified ear Category: Medical Plan: Referred to physical therapy department for vestibular rehabilitation therapy to rule out and treat possible benign positional vertigo (3) Intertrigo: Code(s): L30.4 - Erythema intertrigo Category: Medical Plan: Prescription sent for nystatin-triamcinolone cream, use as directed (4) Vitamin D deficiency: Code(s): E55.9 - Vitamin D deficiency, unspecified Category: Medical Plan: Will check vitamin-D level (5) Partial tear of rotator cuff: Code(s): M75.110 - Incomplete rotator cuff tear or rupture of unspecified shoulder, not specified as traumatic Category: Medical Plan: Followed by Orthopedics (6) Trigeminal neuralgia of right side of face: Code(s): G50.0 - Trigeminal neuralgia Category: Medical Plan: Continue with carbamazepine (7) Arthritis of right shoulder region: Code(s): M19.011 - Primary osteoarthritis, right shoulder Category: Medical Plan: Followed by [facility], no improvement with corticosteroid injections in joint were physical therapy. Has follow-up appointment scheduled for 10/2024 (8) Morbid obesity due to excess calories: Code(s): E66.01 - Morbid (severe) obesity due to excess calories Category: Medical Plan: Reinforced importance of following a healthy diet, cut back on carbohydrate intake, eat more fish, vegetables, and encouraged to get regular exercise (9) Fibromyalgia: Code(s): M79.7 - Fibromyalgia Category: Medical Plan: Followed by Rheumatology currently on pregabalin (10) Recurrent kidney stones: Code(s): N20.0 - Calculus of kidney Category: Medical Plan: Followed by Urology . Continue vitamin B6 , adding 1 oz of lemon juice to water daily., and drinking plenty of water daily. renal ultrasound he is to be repeated in 1 year. (11) Seronegative rheumatoid arthritis: Comment: Seronegative RA diagnosed in [place]. Eval[facility] - has been on Plaquenil 200 mg BID and Enbrel weekly since then. MTX dates unknown. ENbrel DC 05/30 ineffective Humira 05/30 Code(s): M06.00 - Rheumatoid arthritis without rheumatoid factor, unspecified site Category: Medical Plan: Currently on Humira and hydroxychloroquine, followed by Rheumatology (12) Sleep apnea: Comment: dx 02/2022-uses CPAP Code(s): G47.30 - Sleep apnea, unspecified Category: Medical Qualifiers: Sleep apnea type: primary central Qualified Code(s): G47.31 - Primary central sleep apnea Plan: Followed at [facility] sleep clinic, currently on CPAP Orders: Orders Lipid Panel 10/02/24 E55.9 - Vitamin D deficiency, unspecified, E66.01 - Morbid (severe) obesity due to excess calories, Z13.220 - Encounter for screening for lipoid disorders PT Evaluation and Treatment 10/02/24 H81.10 - Benign paroxysmal vertigo, unspecified ear Vitamin D 25-OH Total 10/02/24 E55.9 - Vitamin D deficiency, unspecified, E66.01 - Morbid (severe) obesity due to excess calories, Z13.220 - Encounter for screening for lipoid disorders Medications: New nystatin-triamcinolone 100,000-0.1 unit/g-% 1 appl topical BID 10 days 30 grams 0RF L30.4 - Erythema intertrigo nystatin 1 appl topical DAILY 60 grams 0RF L30.4 - Erythema intertrigo
== END 2024-10-02 15:08 | disposition home or self-care (01) ==
PROVIDERS: PCP Internal Medicine; Visit Provider Internal Medicine
DX: Z00.00 Encounter for general adult medical examination without abnormal findings (principal); E66.01 Morbid (severe) obesity due to excess calories; M06.00 Rheumatoid arthritis without rheumatoid factor, unspecified site; Z68.31 Body mass index [BMI] 31.0-31.9, adult; L30.4 Erythema intertrigo; E55.9 Vitamin D deficiency, unspecified; M75.110 Incomplete rotator cuff tear or rupture of unspecified shoulder, not specified as traumatic; G50.0 Trigeminal neuralgia; M19.011 Primary osteoarthritis, right shoulder; M79.7 Fibromyalgia; N20.0 Calculus of kidney; G47.31 Primary central sleep apnea

== ENCOUNTER → 2024-10-02 13:53 | Outpatient (BNVA) | payer MEDICARE, SELFPAY | PROVIDERS: PCP Internal Medicine; Visit Provider Internal Medicine | DX: Z00.01 Encounter for general adult medical examination with abnormal findings (principal); G47.33 Obstructive sleep apnea (adult) (pediatric); H81.10 Benign paroxysmal vertigo, unspecified ear; L30.4 Erythema intertrigo; M75.110 Incomplete rotator cuff tear or rupture of unspecified shoulder, not specified as traumatic; E55.9 Vitamin D deficiency, unspecified; G50.0 Trigeminal neuralgia; M19.011 Primary osteoarthritis, right shoulder; E66.01 Morbid (severe) obesity due to excess calories; M79.7 Fibromyalgia; N20.0 Calculus of kidney; M06.00 Rheumatoid arthritis without rheumatoid factor, unspecified site; G47.31 Primary central sleep apnea; Z99.89 Dependence on other enabling machines and devices; Z68.31 Body mass index [BMI] 31.0-31.9, adult | CPT/HCPCS: 96127; 99397 ==

== ENCOUNTER 2024-10-14 09:06 | Outpatient (REF) | payer MEDICARE, OTHER, SELFPAY ==
[2024-10-14 09:17] LABS: MANUAL DIFF FLAG NO
--- OUTSIDE RECORDS SUMMARY | 2024-10-14 09:26 | XMS_ITS | Continuity of Care Document ---
Author Organization [facility] Address [address] [place] [address], [address] Floor, [address] [place] [id number]- Care Team Providers Care Assistant Portfolio Manager Name Role Phone Padma MAYO, Lakshmi Schmidt Primary Care Physician Encounter [facility] Date(s): 09/02/24 - 10/02/24 [facility] 3rd Floor, [address] [place] [address]- Encounter Type: Triage Allergies, Adverse Reactions, Alerts No Known Allergies Medications acetaminophen 325 mg oral tablet 650 mg, By Mouth, Every 6 hours, may take otc not to exceed 3000 mg/day, Refills 0, Maintenance, 04/04/24 12:21:00 PM EDT, Partial fill upon patient request if the prescription is for a schedule II opioid drug. Start Date: 04/04/24 Status: Ordered Repeat number: 1 Aspirin Tablet 325 mg, By Mouth, 2 times a day, Refills 0, Maintenance, 04/04/24 12:21:00 PM EDT, Partial fill uponpatient request if the prescription is for a schedule II opioid drug. Start Date: 04/04/24 Status: Ordered Repeat number: 1 carBAMazepine 100 mg oral tablet, chewable 100 mg, 1, tablet, Chew, 2 times a day, In conjunction with 200 mg tablets for total dose of 500 mgtwice daily, # 60 tablet, Refills 2, Tot. Refills 2, Maintenance, 09/16/24 3:40:00 PM EST, Route toPharmacy Electronically, [facility] #[id number], Partial fill upon patient request if the prescription is for a schedule II opioid drug., 154, cm, 04/06/24 17:04:00 EDT, Height, 75.5, kg, 04/03/24 17:59:00 EDT, Dry Weight Start Date: 09/16/24 Status: Ordered Quantity: 60.0 Unit: tablet Repeat number: 3 carBAMazepine 200 mg oral tablet See Instructions, TAKE 2 TABLETS BY MOUTH TWICE DAILY, # 360 tablet, Refills 0, Maintenance, 08/13/24 10:06:00 AM EST, Instructions Replace Required Details, [id number], 154, cm, 04/06/24 17:04:00 EDT, Height, 75.5, kg, 04/03/24 17:59:00 EDT, Dry Weight Start Date: 08/13/24 Status: Ordered Quantity: 360.0 Unit: tablet Repeat number: 1 celecoxib 200 mg oral capsule = 200 mg, By Mouth, Daily, 0 Refills, Maintenance, 04/04/24 12:22:00 PM EDT, Capsule, Partial fill upon patient request if the prescription is for a schedule II opioid drug. Start Date: 04/04/24 Status: Ordered Repeat number: 1 Colace Capsule 100 mg, 1, capsule, By Mouth, 2 times a day, PRN, Refills 0, Maintenance, as needed for constipation, 04/04/24 12:22:00 PM EDT, Partial fill upon patient request if the prescription is for a schedule II opioid drug. Start Date: 04/04/24 Status: Ordered Repeat number: 1 diclofenac 1% topical gel = 2 Gm, Topically, 4 times a day, 0 Refills, Maintenance, 02/25/21 9:16:00 AM EDT, Partial fill uponpatient request if the prescription is for a schedule II opioid drug. Start Date: 02/25/21 Status: Ordered Repeat number: 1 Humira Pre-Filled Syringe 40 mg/0.4 mL subcutaneous kit = 40 mg, Subcutaneous Injection, every 2 weeks, 0 Refills, Maintenance, 03/20/24 11:58:00 AM EDT, Partial fill upon patient request if the prescription is for a schedule II opioid drug. Start Date: 03/20/24 Status: Ordered Repeat number: 1 hydroxychloroquine 200 mg oral tablet 200 mg, 1, tablet, By Mouth, 2 times a day, Refills 0, Maintenance, 05/08/17 10:57:49 AM EDT Start Date: 05/08/17 Status: Ordered Repeat number: 1 MiraLax Powder 1 pack/packet = 17 Gm, By Mouth, Daily, PRN Constipation, 0 Refills, Maintenance, 04/04/24 12:22:00 PM EDT, Powder, Partial fill upon patient request if the prescription is for a schedule II opioid drug. Start Date: 04/04/24 Status: Ordered Repeat number: 1 omeprazole 20 mg oral delayed release tablet 1 tablet = 20 mg, By Mouth, Daily, 0 Refills, Maintenance, 05/08/17 10:58:26 AM EDT Start Date: 05/08/17 Status: Ordered Repeat number: 1 pregabalin 150 mg oral capsule 1 capsule = 150 mg, By Mouth, 2 times a day, # 60 capsule, 1 Refills, Maintenance, 02/12/24 2:30:00 PM EDT, Capsule, [facility] #[id number], Partial fill upon patient request if the prescription is for a schedule II opioid drug., 154.94, cm, 01/17/24 13:44:00 EDT, Height Start Date: 02/12/24 Status: Ordered Quantity: 60.0 Unit: capsule Repeat number: 2 pregabalin 25 mg oral capsule See Instructions, One 25mg cap by mouth in addition to 150mg dose twice daily for a total of 175mg BID, # 60 capsule, 5 Refills, Maintenance, 06/23/24 4:06:00 PM EDT, [facility] #[id number], Instructions in Cypriot please. [employer] checked, 154, cm, 04/06/24 17:04:00 EDT, Height, 75.5, kg, 04/03/24 17:59:00 EDT, Dry Weight Start Date: 06/23/24 Status: Ordered Quantity: 60.0 Unit: capsule Repeat number: 6 Vitamin D3 By Mouth, 2000 units, 0 Refills, Maintenance, 05/08/17 10:58:47 AM EDT Start Date: 05/08/17 Status: Ordered Repeat number: 1 Problem List Condition Confirmation Course Effective Dates [...] 100 in lifetime) entered on: 06/02/22 Sex Sex Representation Female (finding) Patient Care team information Care Team Personnel Name: Padma MAYO , Lakshmi Schmidt Position: Reference Physician Member Role: PCP Address: [address] Telecom: Care Team Related Persons Name: KURTIS NAVARRO Insurance Providers Guarantor name: MONO BOWER Health Plan Information #: 1 Payer: NA Member Number: NA Policy Number: NA Group Number: NA Health Plan Information #: 2 Payer: [employer] ADV PPO Member Number: NA Policy Number: NA Group Number: NA Health Plan Information #: 3 Payer: MEDICARE PART B OUTPT Member Number: NA Policy Number: NA Group Number: NA Health Plan Information #: 4 Payer: [employer] Member Number: NA Policy Number: NA Group Number: NA
[2024-10-14 09:36] LABS: Basophils Absolute Auto 0.1 X10*3/uL (0.0-0.2); Basophils Percent Auto 1.5 % (0-2); Eosinophils Absolute Auto 0.1 X10*3/uL (0.0-0.4); Eosinophils Percent Auto 1.7 % (0-4); Hematocrit 38.1 % (37.0-47.0); Hemoglobin 12.5 g/dl (12.0-16.0); Imm Gran Abs Auto 0.01 X10*3/uL (0.00-0.03); Imm Gran Pct Auto 0.2 % (0.0-0.4); Lymphocytes Absolute Auto 2.3 X10*3/uL (1.2-4.9); Lymphocytes Percent Auto 49.6 % (20-40); Mean Corpuscular HGB Conc 32.8 g/dl (31.0-35.0); Mean Corpuscular Hemoglobin 31.3 pg (27.0-33.0); Mean Corpuscular Volume 95.5 fL (80.0-98.0); Mean Platelet Volume 9.8 fL (9.4-12.3); Monocytes Absolute Auto 0.5 X10*3/uL (0.1-1.2); Monocytes Percent Auto 11.2 % (2-11); Neutrophils Absolute Auto 1.7 x10*3/uL (2.0-8.3); Neutrophils Percent Auto 35.8 % (45-73); Platelet Count 178 X10*3/uL (160-400); Red Blood Count 3.99 X10*6/uL (4.20-5.50); Red Cell Distribution Width 14.9 % (11.0-16.0); White Blood Count 4.7 X10*3/uL (4.8-10.8)
[2024-10-14 10:14] LABS: Alanine Aminotransferase 19 U/L (0-31); Albumin Level 3.7 g/dL (3.5-5.0); Alkaline Phosphatase 81 U/L (39-117); Anion Gap 9 (12-20); Aspartate Amino Transferase 23 U/L (5-31); Bilirubin Total 0.3 mg/dL (0.0-1.0); Blood Urea Nitrogen 17 mg/dL (9-16); C Reactive Protein < 0.10 mg/dL (< or = 0.50); Calcium 8.7 mg/dL (8.4-10.2); Carbon Dioxide 28 mmol/L (22-29); Chloride 112 mmol/L (96-108); Cholesterol 187 mg/dL (<200); Erythrocyte Sedimentation Rate 14 MM/HR (0-20); Estimated Glomerular Filt Rate > 60; Glucose Random 95 mg/dL (60-115); HDL Cholesterol 68 mg/dL (>40); LDL Cholesterol Calculated 96 mg/dL (<100); Potassium 4.4 mmol/L (3.3-5.1); Sodium 145 mmol/L (135-145); Total Protein 6.9 g/dL (6.5-8.0); Triglycerides 115 mg/dL (<150)
[2024-10-14 10:30] LABS: Vitamin D 25-OH Total 15.6 ng/mL (>30)
== END 2024-10-14 09:07 | disposition home or self-care (01) ==
LOC: HO.LAB 09:06
PROVIDERS: Student in an Organized Health Care Education/Training Program; PCP Internal Medicine; Visit Provider Internal Medicine
DX: E66.01 Morbid (severe) obesity due to excess calories (principal); E55.9 Vitamin D deficiency, unspecified; Z13.220 Encounter for screening for lipoid disorders; M06.00 Rheumatoid arthritis without rheumatoid factor, unspecified site
CPT/HCPCS: 36415; 80053; 80061; 82306; 85025; 85652; 86140

== ENCOUNTER 2024-10-17 11:00 | Outpatient (RCR) | payer MEDICARE, SELFPAY ==
[2024-10-17 11:00] VITALS: BP 124/60; PULSE 83
--- NOTE | 2024-10-17 12:05 | MHC.PT.EP ---
[facility] [place] Office [place] Office [place] Office [address] Carmen Pereira [address] [phone] F: [phone] F: [phone] F: [phone] F: [phone] Physical Therapy Plan of Care Date of Evaluation: 10/17/24 Date of Surgery: NA Diagnosis: BPPV Assessment: Day is a 69 year old female who is referred to PT for BPPV . She reports of having symptoms of dizziness for about 2 months. She reports of having spontaneous room spinning dizziness when sitting, standing and getting into bed. Her symptoms last for a few seconds and denies any nausea or vomiting. On PT examination she presented with intact saccades, intact smooth pursuit, intact visual tracking, negative head thrust, 0 lines with DVA, negative for VBI and negative for BPPV in B ruiz pikes and B roll test. She also presented with good static and dynamic balance. She lives with family and is independent with all ADLS. She currently does not present with symptoms suggestive of vestibular dysfunction. No PT indicated at this time. She was advised to return to PT in case of return of symptoms. Frequency and Duration: The patient will be seen Short Term Goals: Wool Supplier Goals: Treatment Plan: Modalities to reduce pain, spasms and effusion. Manual therapy to restore motion and function. Therapeutic exercise to improve strength and flexibility. Neuromuscular re-education for posture and balance. Therapeutic activities to return to functional activities of daily living. Electronically signed by: Cleo Rasheed PT DPT Please sign and return to therapist. Thank you for your referral.
--- NOTE | 2024-12-15 11:32 | MHC.PT.DC ---
[facility] [place] Office [place] Office [place] Office [address] [phone] F: [phone] F: [phone] F: [phone] F: [phone] Physical Therapy Discharge Report Diagnosis: BPPV Date of Surgery: NA Date of Evaluation: 10/17/24 Date of Discharge: 12/15/24 Treatments to Date: 1 Cancellations to Date: 0 No Shows to Date: 0 Discharge Status: Recommend MD Follow-up Discharge Summary: Day did not present with any symptoms suggestive of vestibular dysfunction. No PT indicated at this time. Electronically signed by: Cleo Rasheed PT DPT Please sign and return to therapist. Thank you for your referral.
== END 2024-12-15 11:32 | disposition home or self-care (01) ==
LOC: HO.PT 11:00
PROVIDERS: PCP Internal Medicine; Visit Provider Internal Medicine
DX: H81.10 Benign paroxysmal vertigo, unspecified ear (principal)
CPT/HCPCS: 97112; 97161

== ENCOUNTER 2024-10-24 13:15 | Outpatient (REF) | payer OTHER, SELFPAY ==
--- OUTSIDE RECORDS SUMMARY | 2024-10-24 15:47 | XMS_ITS | Continuity of Care Document ---
Author Organization [facility] ter Address [address] [place] [address]- Care Team Providers Care Ply Bander Name Role Phone Padma MAYO, Lakshmi Schmidt Primary Care Physician Encounter 10/21/24 - 10/22/[address] [address] Attending Physician: Not on Staff, Attending MD Referring Physician: Not on Staff, Referring MD Encounter Type: SMRI Allergies, Adverse Reactions, Alerts No Known Allergies [...] 09/16/24 3:40:00 PM EST, Route toPharmacy Electronically, [facility] #[id number], Partial fill upon patient request if the [...] Replace Required Details, Route to Pharmacy Electronically, [facility] #[id number], 154, cm, 04/06/24 17:04:00 EDT, Height, 75.5, [...] Refills, Maintenance, 02/12/24 2:30:00 PM EDT, Capsule, [facility] #[id number], Partial fill upon patient request if the [...] 5 Refills, Maintenance, 06/23/24 4:06:00 PM EDT, [facility] #[id number], Instructions in Tuvaluan please. MassPAT checked, 154, cm, 04/06/24 17:04:00 [...] Active Treatment-emergent central sleep apnea Confirmed Active Results Radiology Reports * Exam Date Time Procedure Performing Provider Status 10/21/24 7:56 PM MRI Lumbar Spine W/O Contrast Auth (Verified) Notes: (MRI Lumbar Spine W/O Contrast) Reason For Exam: M54.50 - Low back pain, unspecified, , EVAL LUMBARRADICULOPATHY;M54.50 - Low back pain, unspecified, , EVAL LUMBAR RADICULOPATHY RESULT: MRI Lumbar Spine W/O Contrast [facility] VISIT NUMBER :[id number] Patient Name: Day Chand Date of : 1955 Date of Exam: 10-21-2024 Referring Physician: Kathi Weaver [facility] [address] [place], [place] [address] Exam: MR Lumbar Spine (C-) CPT 94533 Room Description: [facility] 1.5 HISTORY: Low back pain. Bilateral leg pain. TECHNIQUE: Multiplanar multisequence MRI of the lumbar spine without contrast. COMPARISON: No prior studies are available for comparison at [facility]. FINDINGS: There is a mild leftward curvature of the lumbar spine on the coronal localizer images. Mild straightening of the lumbar spine is noted on the sagittal images without significant subluxation. The lumbar vertebral bodies are normal in height. No spondylolysis. The L2-L3 disc is moderate-severely diminished in height. Mild loss of height of L3-L4, L4-L5, and L5-S1. Marginal osteophytes and facet arthroses are present at multiple levels. The visualized lower thoracic cord is normal in signal, and the conus terminates at L1-L2. Fatty atrophy of the posterior paraspinal musculature. No acute retroperitoneal abnormality. L1-L2: No central canal or foraminal stenosis. L2-L3: Concentric disc-osteophyte complex with a right paracentral disc extrusion extending inferiorly. Mild facet arthrosis and ligamentum flavum flavum infolding. Mild central canal narrowing. Mild foraminal narrowing. L3-L4: Mild concentric disc bulge, facet arthrosis, and ligamentum flavum infolding. Mild central canal narrowing. Minimal right and mild left foraminal narrowing. L4-L5: Mild concentric disc bulge and facet arthrosis. Subtle central disc protrusion. Mild central canal narrowing with minimal crowding of the L5 nerve roots. No impingement. Mild foraminal narrowing. L5-S1: Concentric disc-osteophyte complex and facet arthrosis. No significant central canal narrowing. No right and moderate-severe left foraminal stenosis. Crowding of the left L5 nerve roots. IMPRESSION: Degenerative changes of the lumbar spine with central canal and foraminal narrowing as detailed above. Foraminal narrowing is most pronounced on the left at L5-S1. The aforementioned findings can be correlated with the patient's symptoms and neurological examination. Electronically Signed By: Marlon Lux MD Dictated By: Not on Staff , LUIS MANUEL MAYO Dictated Date/Time: 10/22/24 4:09 pm Reviewed By: Not on Staff , LUIS MANUEL MAYO Signed By: Not on Staff , LUIS MANUEL MAYO Signed Date/Time: 10/22/24 4:09 pm Transcribed By: FRANNY Transcribed Date/Time: 10/22/24 4:09 pm Social History Social History Type Response Smoking Status Never (less than 100 in lifetime) entered on: 06/02/22 Sex Sex Representation Female (finding) Patient Care team information Care Team Personnel Name: Padma MAYO , Lakshmi Schmidt Position: Reference Physician Member Role: PCP Address: [address] [place] [address] Telecom: Care Team Related Persons Name: KURTIS NAVARRO Insurance Providers Guarantor name: DAY SATHISH Health Plan Information #: 1 Payer: NA Member Number: NA Policy Number: NA Group Number: NA Health Plan Information #: 2 Payer: [employer] MEDICARE ADV PPO Member Number: NA Policy Number: NA Group Number: NA Health Plan Information #: 3 Payer: MEDICARE PART B OUTPT Member Number: NA Policy Number: NA Group Number: NA Health Plan Information #: 4 Payer: [facility] Member Number: NA Policy Number: NA Group Number: NA
--- OUTSIDE RECORDS SUMMARY | 2024-10-24 15:47 | XMS_ITS | Continuity of Care Document ---
Author Organization [facility] Address [address] [place] [address], [address] Floor, [address] [place] [address]- Care Team Providers Care Franchise Sales Director Name Role Phone Padma MAYO, Lakshmi Schmidt Primary Care Physician Encounter [facility] Date(s): 09/16/24 - 10/16/24 [facility] [address] [facility] 3rd Floor, [address] [place] [address]- Encounter Type: Triage Allergies, Adverse Reactions, Alerts [...] 09/16/24 3:40:00 PM EST, Route toPharmacy Electronically, [facility] #[id number], Partial fill upon patient request if the [...] Replace Required Details, [facility] to [facility]ically[facility][id number], 154, cm, 04/06/24 17:04:00 EDT, Height, 75.5, [...] Refills, Maintenance, 02/12/24 2:30:00 PM EDT, Capsule, [facility] #[id number], Partial fill upon patient request if the [...] 5 Refills, Maintenance, 06/23/24 4:06:00 PM EDT, [facility] #[id number], Instructions in [place]se please. MassPAT checked, 154, cm, 04/06/24 17:04:00 [...] Reference Physician Member Role: PCP Address: [address] Telecom: Care Team Related Persons Name: [...]
== END 2024-10-24 13:16 | disposition home or self-care (01) ==
LOC: HO.MAMMO 13:15
PROVIDERS: Visit Provider Internal Medicine
DX: Z12.31 Encounter for screening mammogram for malignant neoplasm of breast (principal)
CPT/HCPCS: 77063; 77067

== ENCOUNTER → 2024-10-24 13:30 | Outpatient (BNV) | payer OTHER, SELFPAY | PROVIDERS: Visit Provider Internal Medicine | DX: Z12.31 Encounter for screening mammogram for malignant neoplasm of breast (principal) | CPT/HCPCS: 77063; 77067 ==

== ENCOUNTER 2024-12-11 13:39 | Outpatient (AMB) | payer MEDICARE, SELFPAY ==
--- NOTE | 2024-12-11 13:47 | MHC.OFFVIS ---
Vital Signs 12/11/24 13:55 Height 5 ft 1 in Weight 173 lb 1.006 oz BMI 32.7 BP 122/70 Blood Pressure Location Lt brachial Position Sitting Pulse 97 Pulse Source Pulse Oximeter Pulse Oximetry (%) 98 Oxygen Delivery Method Room Air Intake Visit Reasons: RA Intake Note: Patient presents for RA. Addiction Treatment Counselor Required: Yes Addiction Treatment Counselor Language: Carpet Inspector Finished Services: Addiction Treatment Counselor Present Addiction Treatment Counselor Name: Louise [id number] Information Interpreted: non-clinical & clinical Allergies hydroxychloroquine Adverse Reaction (Intermediate, Verified 12/11/24 13:51) Questionable retinopathy Medication List - Last Reconciled 12/11/24 by Katie Jones MD carbamazepine 400 mg PO BID cholecalciferol (vitamin D3) 75 mcg PO DAILY diclofenac sodium 1% topical Humira(CF) (adalimumab) 40 mg (0.4 mL) subcut Q2W NS meloxicam 15 mg PO DAILY nystatin 1 appl topical DAILY nystatin-triamcinolone 100,000-0.1 unit/g-% 1 appl topical BID 10 days pregabalin 150 mg PO BID pregabalin 25 mg PO BID triamcinolone acetonide 0.1% 1 appl topical BID 10 days HPI Comments Details: Patient is a 69-year-old female with obstructive sleep apnea, portal hypertension complicated by splenic artery aneurysm, 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 Interval History: Patient last seen 06/16/[address] Lakhani. At that time she was on Humira every other week and Plaquenil 300 mg daily. She was following up after having a right hip replacement 03/2024. Reported she was doing well overall post surgery Since that time she followed up with her eye doctor and was told that it was starting to affect her eyes and so she stopped it about 2 months ago. Since stopping the plaquenil she has noticed that the pain is worse Now complaining of pain in all her joints: hands, back, knees, shoulder, wrists Followed up with ortho and was given voltaren which helps a bit Rheumatologic History: Seronegative rheumatoid arthritis Seronegative RA diagnosed in [place]. Eval[facility] 2007 - has been on Plaquenil 200 mg BID and Enbrel weekly since then. MTX dates unknown. ENbrel DC 05/30 ineffective Humira 05/30 Plaquenil stopped 10/2024 due to eye changes Current Rheumatology Medication(s): Humira 40 mg sc every other week Plaquenil 300 mg b.i.d. (stopped by eye doctor) [facility] Medical History (Updated 12/11/24 @ 14:30 by Katie Jones MD) Intertrigo Vitamin D deficiency Recurrent kidney stones Sleep apnea Splenic artery aneurysm Shoulder pain, right Trigeminal neuralgia of right side of face Seronegative rheumatoid arthritis Loose right total knee arthroplasty Gastroesophageal reflux disease Hiatal hernia Tailor's bunion of left foot Fibromyalgia Osteoarthritis Impaired fasting glucose Insomnia Cervical spondylosis without myelopathy Autoimmune urticaria Morbid obesity due to excess calories Surgical History S/P hip replacement History of esophagogastroduodenoscopy (EGD) History of colonoscopy History of arthroscopy of right shoulder History of laparoscopic cholecystectomy Status post laser lithotripsy of ureteral calculus History of bunionectomy of left great toe History of cranioplasty History of shoulder surgery Status post right knee replacement Family History Father Emphysema of lung Mother Hypertension Maternal Grandmother No problems noted. Maternal Grandfather No problems noted. Paternal Grandmother No problems noted. Paternal Grandfather No problems noted. Maternal Aunt Diabetes Sister No problems noted. Son No problems noted. Daughter No problems noted. Social History Household Members: Spouse and Other Household Members Other:: mother,daughter Housing: House Are you a primary health care aide to a significant other at home: No Do you presently have visiting nurse or other home services: Yes ([employer]) Alcohol intake: never Patient Tobacco Use Status: Never used Tobacco e-Cigarette/Vaping Use: Never Used service: No Current occupational status: unemployed Current occupation: rt handed Cognitive needs: No Hearing needs: No Vision needs: No Review of Systems Const Details: Review of Systems Constitutional: Denies fever, chills, weight loss ENT: Denies vision changes, eye pain or eye redness, dental caries, dry mouth GI: Denies nausea, vomiting, diarrhea, abdominal pain, change in BM Pulm: Denies SOB, MOSS, hemoptysis, wheezing Cards: Denies chest pain, palpitations Skin: Denies Raynaud's, rash, nail changes, photosensitivity, ROTARY ENVELOPE MACHINE OPERATOR: Denies headaches, weakness, paresthesias, recurrent falls MSK: as per HPI All other systems reviewed and are unremarkable except noted above Physical Exam Vital Signs: Last Vital Signs Pulse 97 12/11/24 13:55 BP 122/70 12/11/24 13:55 Pulse Ox 98 12/11/24 13:55 Oxygen Delivery Method Room Air 12/11/24 13:55 BMI result Body Mass Index 32.7 Vital signs reviewed Physical Examination CONSTITUITIONAL Patient alert and cooperative. Well appearing and in no apparent painful distress HEENT Conjunctiva and sclera clear. ?Pupils equal round and reactive to light. ?No lymphadenopathy. ? CHEST/RESPIRATORY SYSTEM Normal respiratory effort and able to speak in complete sentences. ?Clear to auscultation bilaterally. ?No crackles, rales, rhonchi, wheezes heard. CARDIAC SYSTEM Regular rate and rhythm. ?S1 and S2 heard no murmurs. ?Radial pulses intact bilaterally MSK Hands: ?Able to make a fist. Swelling noted to bilaterally. With synovitis involving multiple MCPs and PIPs. Herbedens nodes noted Wrists: ?Full range of motion at the wrists. TTP bilaterally Elbows: Full range of motion without pain. No tenderness, weakness, swelling, increased warmth or erythema. Shoulders: ROM ltd 2/2 pain Hips: examined in chair not able to examine this Knees: ?Full range of motion. ?No tenderness, swelling, increased warmth or erythema.?Crepitations felt Ankles: Full range of motion. ?No tenderness, swelling, increased warmth or erythema.? Feet: ?Negative squeeze test. ?No tenderness to palpation or swelling of the MTPs. Tender points:?No tenderness to palpation of the bilateral trapezius, supraspinatus, greater trochanters, anterior costochondral junctions, bilateral gluteal areas, bilateral suboccipital muscle insertions SKIN Skin intact without rashes. Results Reviewed Results Reviewed: Laboratory Tests 10/14/24 09:16 WBC 4.7 L RBC 3.99 L Hgb 12.5 Hct 38.1 Plt Count 178 ESR 14 Sodium 145 Potassium 4.4 Chloride 112 H Carbon Dioxide 28 BUN 17 H Creatinine 0.76 Calcium 8.7 Total Bilirubin 0.3 AST 23 ALT 19 Alkaline Phosphatase 81 C-Reactive Protein < 0.10 Total Protein 6.9 Albumin 3.7 25-OH Vitamin D Total 15.6 L Assessment & Plan Assessment & Plan (1) Seronegative rheumatoid arthritis: Comment: Seronegative RA diagnosed in [place]. Evaluated at [facility] in 2007 - has been on Plaquenil 200 mg BID and Enbrel weekly since then. MTX dates unknown. ENbrel DC 05/30 ineffective Humira 05/30. increased to weekly 10/2024 Plaquenil stopped 10/2024 due to eye changes Code(s): M06.00 - Rheumatoid arthritis without rheumatoid factor, unspecified site Category: Medical Plan: #Rheumatoid arthritis Patient is a 69 y.o. female with seronegative RA currently in a flare of her disease after stopping plaquenil. Will give prednisone taper and increase the Humira frequency Plan - Prednisone taper: 15mg x 10 days, then 10mg x 10days then, 5mg x 10 days then stop - Increase Humira fequency to 40mg SC every week - Stop plaquenil - RTC 3 months - Labs prior to visit: CBC, CMP, ESR, CRP, Hepatitis panel and T spot (2) Encounter for monitoring of adalimumab therapy: Code(s): Z51.81 - Encounter for therapeutic drug level monitoring; Z79.620 - [facility] (current) use of immunosuppressive biologic Plan: #Long-term Use of TNF Inhibitors: Humira Discussed with the patient the benefits and risks of TNF inhibitors for the management of the rheumatic condition Benefits include reduce pain, maintenance of remission and reduction of flares as well as ?progression of the disease Risks include injection sites/infusion reactions, serious infections (such as bacterial infections, opportunistic infections), malignancy, delaminating syndromes, autoimmune phenomena, CHF exacerbations, palmar plantar psoriasis and cytopenias Recommended rotating injection sites, and holding medication during and for up to 1 week after resolution of a febrile illness or open skin wound Plan I spent 45 minutes reviewing the record and labs, taking a history, examining the patient, discussing the treatment plan and documenting in the medical record Orders: Orders Complete Blood Count Auto Diff 3 Months M06.00 - Rheumatoid arthritis without rheumatoid factor, unspecified site Comprehensive Met. Panel 3 Months M06.00 - Rheumatoid arthritis without rheumatoid factor, unspecified site C Reactive Protein 3 Months M06.00 - Rheumatoid arthritis without rheumatoid factor, unspecified site Erythrocyte Sedimentation Rate 3 Months M06.00 - Rheumatoid arthritis without rheumatoid factor, unspecified site Hepatitis A,B,C Profile 3 Months M06.00 - Rheumatoid arthritis without rheumatoid factor, unspecified site HIV Ab/Ag 3 Months M06.00 - Rheumatoid arthritis without rheumatoid factor, unspecified site T Spot TB 3 Months M06.00 - Rheumatoid arthritis without rheumatoid factor, unspecified site Medications: New prednisone take 3 tablets for 10 days then 2 tablets for 10 days then 1 tablet for 10 days then stop 5 mg PO DIRECTED 60 tabs 0RF M06.00 - Rheumatoid arthritis without rheumatoid factor, unspecified site, Z51.81 - Encounter for therapeutic drug level monitoring, Z79.620 - [facility] (current) use of immunosuppressive biologic Changed From Humira(CF) (adalimumab) 40 mg (0.4 mL) subcut Q2W 2 ea 4RF NS M06.00 - Rheumatoid arthritis without rheumatoid factor, unspecified site To Humira(CF) (adalimumab) 40 mg (0.4 mL) subcut QWEEK 4 ea 5RF NS M06.00 - Rheumatoid arthritis without rheumatoid factor, unspecified site Coding Level of Care Code Est Pt Level 5 (56763) Complex EM visit Add On G2211 Diagnoses Seronegative rheumatoid arthritis M06.00 Encounter for monitoring of adalimumab therapy Z51.81; Z79.620
[2024-12-11 13:55] VITALS: BP 122/70; PULSE 97; O2SAT 98; BMI 32.7
--- OUTSIDE RECORDS SUMMARY | 2024-12-11 16:35 | XMS_ITS | Continuity of Care Document ---
Author Organization [facility] ter Address [address] [place] [address]- Care Team Providers Care Cad Designer Name Role Phone Padma MAYO, Lakshmi Schmidt Primary Care Physician Encounter 11/21/24 - 11/22/[address] [address] Attending Physician: Not on Staff, Attending MD [...] 04/04/24 Status: Ordered Repeat number: 1 carBAMazepine 200 mg oral tablet 2, tablet, By Mouth, 2 times a day, # 360 tablet, Refills 0, Maintenance, 11/17/24 4:47:00 PM EST, Route to Pharmacy Electronically, [facility] #[id number], 154, cm, 04/06/24 17:04:00 EDT, Height, 75.5, kg, 04/03/24 17:59:00 EDT, Dry Weight Start Date: 11/17/24 Status: Ordered Quantity: 360.0 Unit: tablet Repeat [...] Refills, Maintenance, 02/12/24 2:30:00 PM EDT, Capsule, [facility] #[id number], Partial fill upon patient request if the [...] 5 Refills, Maintenance, 06/23/24 4:06:00 PM EDT, [facility] #[id number], Instructions in [place] Korean please. MassPAT checked, 154, cm, 04/06/24 17:04:00 [...] Position: Reference Physician Member Role: PCP Address: [address] [place] [address] Telecom: Care Team Related Persons Name: KURTIS NAVARRO Insurance Providers Guarantor name: MONO BOWER AudiencePoint Plan Information #: 1 Payer: [employer] MEDICARE ADV HMO Member Number: NA Policy Number: NA Group Number: NA
--- OUTSIDE RECORDS SUMMARY | 2024-12-11 16:35 | XMS_ITS | Clinical Summary ---
Author Organization [facility] Address [address] [place] [address] Care Team Providers Care Ornamental Ironworking Supervisor Name Role Phone Unavailable Primary Care Provider Unavailabl e Allergies No known active allergies Medications Medication Sig Dispensed Refills Start Date End Date Status baclofen (LIORESAL) 10 MG tablet Take 10 mg by mouth 3 (three) times a day. 12/21/2020 Active Enbrel SureClick 50 MG/ML auto-injector Inject 50 mg under the skin every 7 days. Sunday01/18/2021 Active hydroxychloroquine (PLAQUENIL) 200 MG tablet Take 200 mg by mouth 2 (two) times a day. 02/10/2021 Active OMEprazole (PriLOSEC) 20 MG capsule Take 20 mg by mouth daily. 01/12/2021 Active oxyCODONE (ROXICODONE) 5 MG immediate release tablet TAKE 1 TABLET BY MOUTH EVERY 6 HOURS FOR 5 DAYS NEEDED FOR PAIN 02/11/2021 Active pregabalin (LYRICA) 150 MG capsule Take 1 capsule (150 mg total) by mouth 2 (two) times a day. 60 capsule 02/14/2021 Active carBAMazepine (CARBATROL) 200 MG 12 hr capsule Take 2 capsules (400 mg total) by mouth 2 (two) times a day. 120 capsule 02/14/2021 Active Active Problems Problem Noted Date Diagnosed Date Facial pain 02/13/2021 Social History Tobacco Use Types Packs/Day Years Used Date Smoking Tobacco: Never Smokeless Tobacco: Never Sex and Gender Information Value Date Recorded Sex Assigned at Not on file Gender Identity Not on file Sexual Orientation Not on file Last Filed Vital Signs Vital Sign Reading Time Taken Comments Blood Pressure 137/73 02/14/2021 3:51 PM EDT Pulse 100 02/14/2021 3:51 PM EDT Temperature 37.2 ??C (99 ??F) 02/14/2021 3:51 PM EDT Respiratory Rate 18 02/14/2021 3:51 PM EDT Oxygen Saturation 91% 02/14/2021 3:51 PM EDT Inhaled Oxygen Concentration - - Weight - - Height - - Body Mass Index - - Plan of Treatment Health Maintenance Due Date Last Done Comments Hepatitis C Virus Screening 1955 COVID-19 Vaccine (#1) 1962 Quantiferon Gold TB 1967 DTaP/Tdap/Td Vaccines (1 - Tdap) 1976 Pneumococcal Vaccines 50+ (1 of 2 - PCV) 1976 Zoster (Shingles) Vaccine (1 of 2) 1976 Mammogram 1997 Colonoscopy 2002 RSV Vaccine 60 years and old er and Patients (1 - Risk 60-74 years 1-dose series) 2017 DXA Bone Density (Females,Ag es 65 and older) 2022 Influenza Vaccine 05/08/2024 Hepatitis B Vaccines Aged Out No long er eligible based on patient's age to complete this topic Advance Directives * Full Code (Latest Code Status on File) Date Activated Date Inactivated Comments 02/13/2021 6:20 PM Question Answer Comments Decision Thoroughly Discussed with: Patient
--- OUTSIDE RECORDS SUMMARY | 2024-12-11 16:35 | XMS_ITS | Clinical Summary ---
Author Organization [facility] Address [address] [place] [address] Care Team Providers Care Revising Clerk Name Role Phone Unavailable Primary Care Provider Unavailabl e Social History Tobacco Use Types Packs/Day Years Used Date Smoking Tobacco: Never Assessed Sex and Gender Information Value Date Recorded Sex Assigned at Not on file Gender Identity Not on file Sexual Orientation Not on file Plan of Treatment Health Maintenance Due Date Last Done Comments Hepatitis C Screening 1955 COVID-19 Vaccine (#1) 04[birth year]01/1958 Depression Screening 1969 Preventative Health Evaluation 1975 DTap / Tdap / Td (1 - Tdap) 1976 Colon Cancer Screening (Colonoscopy) 2002 Breast Cancer Screening (Mammogram) 2007 Shingrix-Zoster Vaccine (1 of 2) 2007 Fall Risk Assessment 2022 Osteoporosis Screening (DEXA Scan) 2022 Pneumococcal Vaccine (1 of 1 - PCV) 2022 Influenza Vaccine (#1) 2024 RSV Adult > 60+ Yrs or Pregn ant (1 - 1-dose 75+ series) 2032 Hepatitis B Vaccines Aged Out No long er eligible based on patient's age to complete this topic RSV Ped < 20 months Aged Out No longe r eligible based on patient's age to complete this topic
== END 2024-12-11 14:40 | disposition home or self-care (01) ==
PROVIDERS: PCP Internal Medicine; Visit Provider Student in an Organized Health Care Education/Training Program
DX: M06.09 Rheumatoid arthritis without rheumatoid factor, multiple sites (principal); Z51.81 Encounter for therapeutic drug level monitoring; Z79.620 Long term (current) use of immunosuppressive biologic
CPT/HCPCS: 99215; G2211

== ENCOUNTER → 2024-12-11 13:39 | Outpatient (BNVA) | payer MEDICARE, SELFPAY | PROVIDERS: PCP Internal Medicine; Visit Provider Student in an Organized Health Care Education/Training Program | DX: M06.00 Rheumatoid arthritis without rheumatoid factor, unspecified site (principal); Z51.81 Encounter for therapeutic drug level monitoring; Z79.620 Long term (current) use of immunosuppressive biologic | CPT/HCPCS: 99212 ==

== ENCOUNTER 2025-01-02 11:29 | Outpatient (REF) | payer MEDICARE, SELFPAY ==
[2025-01-02 13:00] LABS: Vitamin D 25-OH Total 16.3 ng/mL (>30)
== END 2025-01-02 11:30 | disposition home or self-care (01) ==
LOC: HO.LAB 11:29
PROVIDERS: PCP Internal Medicine; Visit Provider Internal Medicine
DX: E55.9 Vitamin D deficiency, unspecified (principal)
CPT/HCPCS: 36415; 82306

== ENCOUNTER 2025-01-05 10:08 | Observation (INO) | payer MEDICARE, SELFPAY ==
--- NOTE | ~2025-01-05 | CT_ITS ---
EXAMINATION: CT HEAD WITHOUT CONTRAST CLINICAL INFORMATION: Dizziness COMPARISON: 11/28/2023. TECHNIQUE: Contiguous axial imaging was performed from the skull base to vertex without intravenous administration of contrast. This CT examination was performed using dose optimization techniques as appropriate, variously including the following: *Automated exposure control *Adjustment of mA and/or kV according to patient size (this includes techniques or standardized protocols for targeted exams where dose is matched to indication/reason for exam; i.e. extremities or head) *Use of iterative reconstruction technique FINDINGS: There is no evidence of intracranial hemorrhage or extra-axial fluid collection. There is no mass effect, or edema. No CT evidence of acute territorial infarct. Ventricles, sulci, and cisterns are normal in size and configuration for patient age. No hydrocephalus. No midline shift. Negative hyperdense MCA sign. Negative insular ribbon sign. Patchy periventricular and deep white matter hypoattenuation is consistent with mild small vessel ischemic changes. Normal pituitary. Mild atheromatous calcification of the bilateral carotid siphons and V4 segments vertebral arteries bilaterally. Globes and orbital contents image normally. There are bilateral lens replacements. No extracranial soft tissue abnormalities. The paranasal sinuses, mastoid air cells, and tympanic cavities are normally aerated. No suspicious bony abnormalities. There is a torus palatini. There are no acute fractures evident. Severe left greater than right TM joint degenerative changes. CT/CT head/brain wo IV con IMPRESSION: 1. No acute intracranial abnormality. 2. Ancillary findings as discussed. Electronically signed by: Markos Dial MD 01/05/2025 03:24 PM EDT
--- NOTE | ~2025-01-05 | XR_ITS ---
EXAMINATION: XR CHEST CLINICAL INFORMATION: near syncope COMPARISON: May 23, 2023. TECHNIQUE: Frontal view of the chest was obtained. FINDINGS: Pulmonary reticular pattern. Prominence of the peribronchial septal. No consolidation, pleural effusion or pneumothorax. Cardiomediastinal silhouette size is normal. Multilevel thoracic spondylosis. 1.3 cm gap at the right acromioclavicular joint, unchanged. XR/XR chest 1V IMPRESSION: No acute airspace disease. Acute small airway inflammatory process cannot be excluded. Electronically signed by: Zack Vargas MD 01/05/2025 03:24 PM EDT
[2025-01-05 10:16] VITALS: BP 138/57; PULSE 83; RESP 16; TEMP 36.2; O2SAT 95; BMI 42.2
--- NOTE | 2025-01-05 10:21 | ECG_ITS ---
Test Reason : dizziness Blood Pressure : */* mmHG Vent. Rate : 81 BPM Atrial Rate : 81 BPM P-R Int : 146 ms QRS Dur : 86 ms QT Int : 372 ms P-R-T Axes : 49 16 22 degrees QTcB Int : 432 ms Normal sinus rhythm Normal ECG When compared with ECG of 28-Nov-2023 13:24, No significant change was found Referred By: Generic ED Physician Electronically Signed By: RITA DIMAS
[2025-01-05 10:35] LABS: MANUAL DIFF FLAG NO
[2025-01-05 10:37] LABS: Basophils Absolute Auto 0.1 X10*3/uL (0.0-0.2); Basophils Percent Auto 1.2 % (0-2); Eosinophils Absolute Auto 0.1 X10*3/uL (0.0-0.4); Eosinophils Percent Auto 1.2 % (0-4); Hematocrit 37.5 % (37.0-47.0); Hemoglobin 12.8 g/dl (12.0-16.0); Lymphocytes Absolute Auto 2.2 X10*3/uL (1.2-4.9); Lymphocytes Percent Auto 43.7 % (20-40); Mean Corpuscular HGB Conc 34.1 g/dl (31.0-35.0); Mean Corpuscular Hemoglobin 32.4 pg (27.0-33.0); Mean Corpuscular Volume 94.9 fL (80.0-98.0); Mean Platelet Volume 9.4 fL (9.4-12.3); Monocytes Absolute Auto 0.7 X10*3/uL (0.1-1.2); Monocytes Percent Auto 12.9 % (2-11); Neutrophils Absolute Auto 2.1 x10*3/uL (2.0-8.3); Platelet Count 169 X10*3/uL (160-400); Red Blood Count 3.95 X10*6/uL (4.20-5.50); Red Cell Distribution Width 13.9 % (11.0-16.0)
[2025-01-05 10:53] LABS: Anion Gap 10 (12-20); Blood Urea Nitrogen 17 mg/dL (9-16); Calcium 8.5 mg/dL (8.4-10.2); Carbon Dioxide 27 mmol/L (22-29); Chloride 112 mmol/L (96-108); Estimated Glomerular Filt Rate > 60; Glucose Random 96 mg/dL (60-115); Sodium 145 mmol/L (135-145)
[2025-01-05 11:02] LABS: Troponin-I High Sensitivity < 2.7 ng/L (<3.5-17.0)
--- NOTE | 2025-01-05 13:30 | ED.SYNCOPE ---
HPI - Syncope General Chief Complaint: Dizziness Stated Complaint: Headache Dizzy Time Seen by Provider: 01/05/25 13:15 Source: patient and dictionary editor Mode of arrival: ambulatory Limitations: no limitations History of Present Illness ED Provider: DR. Huertas HPI narrative: 69-year-old female with history of trigeminal neuralgia, RA, GERD, fibromyalgia came in today for evaluation of a month of intermittent lightheadedness and dizziness resulting in multiple falls due to the dizziness, patient describes dizziness as lightheadedness with no Head spinning, otherwise no nausea vomiting, no weakness, no numbness , no blurry vision , no CP, no SOB. Patient was sent from her neurologist for further evaluation. Patient reported that she had recent MRI for similar symptoms and was negative. Related Data Home Medications ?Medication ?Instructions ?Recorded ?Confirmed carbamazepine 200 mg tablet 400 mg PO BID 07/10/22 12/11/24 diclofenac sodium 1 % topical gel topical 09/18/23 12/11/24 meloxicam 15 mg tablet 15 mg PO DAILY 10/02/24 12/11/24 pregabalin 25 mg capsule 25 mg PO BID 12/11/24 12/11/24 Previous Rx's ?Medication ?Instructions ?Recorded triamcinolone acetonide 0.1 % 1 appl topical BID 10 days #30 03/06/23 topical cream grams nystatin 100,000 unit/gram topical 1 appl topical DAILY #60 grams 10/02/24 powder nystatin-triamcinolone 100,000 1 appl topical BID 10 days #30 10/02/24 unit/g-0.1 % topical cream grams cholecalciferol (vitamin D3) 75 75 mcg PO DAILY #90 tabs 10/15/24 mcg (3,000 unit) tablet Humira(CF) 40 mg/0.4 mL 40 mg (0.4 mL) subcut QWEEK #4 ea 12/11/24 subcutaneous syringe kit (adalimumab) prednisone 5 mg tablet 5 mg PO DIRECTED #60 tabs 12/11/24 pregabalin 150 mg capsule 150 mg PO BID #60 caps 12/11/24 Allergies Allergy/AdvReac Type Severity Reaction Status Date / Time hydroxychloroquine AdvReac Intermediate Questionable Verified 01/05/25 10:20 retinopathy Review of Systems Review of Systems: All other systems are reviewed and are negative Constitutional: Reports as per HPI and Reports no additional constitutional complaints Eyes: Reports as per HPI and Reports no additional eye complaints Reports system reviewed and no additional complaints, except as documented Cardiovascular: Reports as per HPI and Reports no additional cardiovascular complaints Respiratory: Reports as per HPI and Reports no additional respiratory complaints Gastrointestinal: Reports as per HPI and Reports no additional gastrointestinal complaints Genitourinary: Reports no additional female genitourinary complaints Musculoskeletal: Reports no additional musculoskeletal complaints Skin/Breast: Reports system reviewed and no additional complaints, except as docu Psychiatric: Reports no additional psychiatric complaints Endocrine: Reports no additional endocrine complaints Hematologic/Lymphatic: Reports no additional hematologic/lymphatic complaints Allergic/Immunologic: Reports no additional allergic/immunologic complaints Reports system reviewed and no additional complaints, except as documented and Reports Abnormal speech present [facility] Past Medical History Medical History Intertrigo Vitamin D deficiency Recurrent kidney stones Sleep apnea Splenic artery aneurysm Shoulder pain, right Trigeminal neuralgia of right side of face Seronegative rheumatoid arthritis Loose right total knee arthroplasty Gastroesophageal reflux disease Hiatal hernia Tailor's bunion of left foot Fibromyalgia Osteoarthritis Impaired fasting glucose Insomnia Cervical spondylosis without myelopathy Autoimmune urticaria Morbid obesity due to excess calories Surgical History S/P hip replacement History of esophagogastroduodenoscopy (EGD) History of colonoscopy History of arthroscopy of right shoulder History of laparoscopic cholecystectomy Status post laser lithotripsy of ureteral calculus History of bunionectomy of left great toe History of cranioplasty History of shoulder surgery Status post right knee replacement Family History Family History Father Emphysema of lung Mother Hypertension Maternal Grandmother No problems noted. Maternal Grandfather No problems noted. Paternal Grandmother No problems noted. Paternal Grandfather No problems noted. Maternal Aunt Diabetes Sister No problems noted. Son No problems noted. Daughter No problems noted. 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) Alcohol intake: never Patient Tobacco Use Status: Never used Tobacco e-Cigarette/Vaping Use: Never Used Advance Directives: No Advance Directives Information Provided: Yes service: No Current occupational status: unemployed Current occupation: rt handed Cognitive needs: No Hearing needs: No Vision needs: No Physical Exam Vital Signs: Vital Signs: Last Vital Signs Temp 97.2 F 01/05/25 10:16 Pulse 91 01/05/25 13:33 Resp 16 01/05/25 10:16 BP 153/72 H 01/05/25 13:33 Pulse Ox 95 01/05/25 10:16 O2 Del Method Room Air 01/05/25 10:16 BMI result Body Mass Index 42.2 Vital signs have been reviewed and appear to be correct. Blood pressure elevated. Heart rate normal. Respiratory rate normal. Temperature normal. Oxygen saturation normal. Appearance: Alert. Oriented X3. No acute distress. Head: Normal external exam. Normocephalic. Atraumatic. No Ho signs noted. No raccoon eyes noted Eyes: PERRLA. EOMI. Conjunctiva and sclera normal. Eyelids normal. ENT: TM's Normal. Pharynx normal. Uvula midline. Moist mucous membranes. No trismus noted. No drooling noted. No muffled voice noted. Neck: Normal inspection. Neck supple. FROM. No adenopathy. Thyroid Normal. No meningeal signs. No neck mass noted. CVS: Normal heart rate and rhythm. Heart sound normal. No murmurs noted. Pulses normal throughout. Respiratory: No respiratory distress. Painless inspiration. Breath sounds normal. No wheezes/rales/rhonchi noted. Chest nontender. No accessory muscle usage noted or decreased air movement noted. Abdomen: Soft and nontender. Bowel sounds normal in all 4 quadrants. No distention noted. No organomegaly noted. No visible injury noted. Back: No CVA tenderness. Full range of motion noted. Skin: Skin warm and dry. Normal skin color. Normal skin turgor. No rashes/lesions/lacerations noted. Extremities: No lower extremity edema. Extremities exhibit normal range of motion. Extremities nontender. Neuro: Mental status: Normal attention, orientation, memory, and affect. Cranial nerves: Pupils are equal, round and reactive to light, EOMI, visual ponce are fall, face is symmetric, facial sensations are normal. Motor examination normal muscle tone, strength to 4 extremities. DTR are +2, planter's are flexor. Sensory exam; normal coordination, no ataxia, gait stable. Cerebellar exam: [id number] and hfpl-cc-[id number] is normal. Extrapyramidal system: No tremors, no rigidity with normal facial expressions. Pronator drift not present Course Reevaluation(s) Reevaluation #1: 69-year-old female came in for evaluation of near syncopal episode with multiple falls over the past month, patient had a normal neuro exam and CT of the head, unremarkable orthostatic vital signs. Patient will need to be monitor for rule out dysrhythmia. Patient with known history of right-sided trigeminal neuralgia which is unlikely to cause patient's symptoms. Time: 14:57 Medical Decision Making Differential Diagnosis Differential Diagnoses: The differential diagnosis associated with the presentation includes ( vertigo, near syncope, dysrhythmia, ACS, electrolyte derangement, dehydration, orthostatic hypotension, severe anemia.) Admission/Observation Consideration of admission/observation: Escalation of care including admission/observation considered Consult Healthcare Provider Management of the patient was discussed with: Hospitalist ( Laura Mccarty) Lab Data MDM Lab Attestation statement: I reviewed the patient's lab results. 01/05/25 10:31 01/05/25 10:31 Labs: Lab Results 01/05/25 01/05/25 Range/Units 10:31 13:48 WBC 5.0 (4.8-10.8) X10*3/uL RBC 3.95 L (4.20-5.50) X10*6/uL Hgb 12.8 (12.0-16.0) g/dl Hct 37.5 (37.0-47.0) % MCV 94.9 (80.0-98.0) fL MCH 32.4 (27.0-33.0) pg MCHC 34.1 (31.0-35.0) g/dl RDW 13.9 (11.0-16.0) % Plt Count 169 (160-400) X10*3/uL MPV 9.4 (9.4-12.3) fL Immature Gran % (Auto) 0.0 (0.0-0.4) % Neut % (Auto) 41.0 L (45-73) % Lymph % (Auto) 43.7 H (20-40) % [place] % (Auto) 12.9 H (2-11) % Eos % (Auto) 1.2 (0-4) % Baso % (Auto) 1.2 (0-2) % Lymph # (Auto) 2.2 (1.2-4.9) X10*3/uL [place] # (Auto) 0.7 (0.1-1.2) X10*3/uL Eos # (Auto) 0.1 (0.0-0.4) X10*3/uL Baso # (Auto) 0.1 (0.0-0.2) X10*3/uL Abs Immat Gran (auto) 0.00 (0.00-0.03) X10*3/uL Absolute Neuts (auto) 2.1 (2.0-8.3) x10*3/uL Absolute Nucleated RBC 0.000 (0.0-0.012) X10*3/uL Nucleated RBC % (auto) 0.0 (0.0-0.2) /100WBC Sodium 145 (135-145) mmol/L Potassium 4.0 (3.3-5.1) mmol/L Chloride 112 H (96-108) mmol/L Carbon Dioxide 27 (22-29) mmol/L Anion Gap 10 L (12-20) BUN 17 H (9-16) mg/dL Creatinine 0.69 (0.5-1.4) mg/dL Estim Creat Clear Calc 83.0 Estimated GFR > 60 Random Glucose 96 (60-115) mg/dL Calcium 8.5 (8.4-10.2) mg/dL Troponin I High Sens < 2.7 < 2.7 (<3.5-17.0) ng/L Independent Interpretation I performed an independent interpretation of an: EKG ( NSR at 81 beats per minutes, normal intervals, no ST-T changes, no change from previous EKG.), Plain X-Ray ( Chest: No acute pathology.) and CT Scan ( head: No acute intracranial pathology.) Radiology Impression Discussion of test interpretation with radiology: I have reviewed the radiologist's reading. Discharge Plan Discharge Clinical Impression: Near syncope Patient Disposition: Admitted As Inpatient Print Language: Belarusian
[2025-01-05 13:32] VITALS: BP 156/72; BP 157/76; PULSE 90; PULSE 91
[2025-01-05 13:33] VITALS: BP 153/72; PULSE 91
--- OUTSIDE RECORDS SUMMARY | 2025-01-05 13:47 | XMS_ITS | Clinical Summary ---
Author Organization [facility] Address [address] [place] [address] Care Team Providers Care Semiconductor Assembler Name Role Phone Unavailable Primary Care Provider [...]
[2025-01-05 14:53] LABS: Troponin-I High Sensitivity < 2.7 ng/L (<3.5-17.0)
--- NOTE | 2025-01-05 16:35 | PM.IMHP ---
History of Present Illness Date of Service: 01/05/25 Chief Complaint: dizziness and falls This is a 69-year-old female with pertinent history of trigeminal neuralgia, rheumatoid arthritis, gastroesophageal reflux disease, fibromyalgia here with dizziness and falls. Patient relates that she has been having intermittnt dizziness and ocasional falls. Last fall a week ago, but felt dizzy yesterday, has never had loss of concsiousness. She saw her neurologist today and was told to go to the ED. Work negative included including normal ECG and unremarkable head ct Review of Systems Review of Systems: Gen: no fever Resp: no sob, no cough CV: no chest, no MOSS, no leg edema GI: No n/v, no abd pain Neuro: No confusion Yes all other systems are reviewed and are negative [facility] Medical History Intertrigo Vitamin D deficiency Recurrent kidney stones Sleep apnea Splenic artery aneurysm Shoulder pain, right Trigeminal neuralgia of right side of face Seronegative rheumatoid arthritis Loose right total knee arthroplasty Gastroesophageal reflux disease Hiatal hernia Tailor's bunion of left foot Fibromyalgia Osteoarthritis Impaired fasting glucose Insomnia Cervical spondylosis without myelopathy Autoimmune urticaria Morbid obesity due to excess calories Family History Father Emphysema of lung Mother Hypertension Maternal Grandmother No problems noted. Maternal Grandfather No problems noted. Paternal Grandmother No problems noted. Paternal Grandfather No problems noted. Maternal Aunt Diabetes Sister No problems noted. Son No problems noted. Daughter No problems noted. 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Medication ?Instructions ?Recorded ?Confirmed ?Last Taken ?Type carbamazepine 200 mg tablet 200 mg PO BID 07/10/22 01/05/25 01/04/25 History diclofenac sodium 1 % topical gel 1 ea topical DAILY PRN Pain (Scale 09/18/23 01/05/25 Unknown History Score 1-3) pregabalin 25 mg capsule 25 mg PO BID 12/11/24 01/05/25 01/04/25 History acetaminophen 650 mg 650 mg PO Q8H PRN Pain (Scale 01/05/25 01/05/25 Unknown History tablet,extended release Score 1-3) adalimumab 40 mg/0.4 mL 40 mg subcut WE@0900 01/05/25 01/05/25 12/31/24 History subcutaneous syringe kit (Humira(CF)) carbamazepine 100 mg chewable 100 mg PO BID 01/05/25 01/05/25 01/04/25 History tablet omeprazole 40 mg capsule,delayed 40 mg PO DAILY@0630 01/05/25 01/05/25 01/04/25 History release prednisone 5 mg tablet 5 mg PO DAILY 01/05/25 01/05/25 01/04/25 History Physical Exam Vital Signs and Narrative: Vital Signs: Last Vital Signs Temp 97.2 F 01/05/25 10:16 Pulse 91 01/05/25 13:33 Resp 16 01/05/25 10:16 BP 153/72 H 01/05/25 13:33 Pulse Ox 95 01/05/25 10:16 O2 Del Method Room Air 01/05/25 10:16 BMI result Body Mass Index 42.2 Results Labs 01/05/25 10:31 01/05/25 10:31 Labs: Laboratory Results - last 24 hr 01/05/25 10:31 MCV 94.9 MCH 32.4 MCHC 34.1 RDW 13.9 Plt Count 169 MPV 9.4 Immature Gran % (Auto) 0.0 Neut % (Auto) 41.0 L Lymph % (Auto) 43.7 H [place] % (Auto) 12.9 H Eos % (Auto) 1.2 Baso % (Auto) 1.2 Lymph # (Auto) 2.2 [place] # (Auto) 0.7 Eos # (Auto) 0.1 Baso # (Auto) 0.1 Abs Immat Gran (auto) 0.00 Absolute Neuts (auto) 2.1 Absolute Nucleated RBC 0.000 Nucleated RBC % (auto) 0.0 Anion Gap 10 L Estim Creat Clear Calc 83.0 Estimated GFR > 60 Random Glucose 96 Calcium 8.5 Imaging Radiologist's Impressions: Impressions Head CT 01/05/25 13:28 IMPRESSION: 1. No acute intracranial abnormality. 2. Ancillary findings as discussed. Electronically signed by: Markos Dial MD 01/05/2025 03:24 PM EDT RP Chest X-Ray 01/05/25 14:59 IMPRESSION: No acute airspace disease. Acute small airway inflammatory process cannot be excluded. Electronically signed by: Zack Vargas MD 01/05/2025 03:24 PM EDT RP Assessment and Plan (1) Near syncope: Status: Acute Plan This 69-year-old female with pertinent history of trigeminal neuralgia, rheumatoid arthritis, gastroesophageal reflux disease, fibromyalgia here with dizziness and falls, negative work with CT head and ECG. plan: Observe on tele to rule out arrythmia, check orthostatic, IVF. Hold of further cardiac or neuro testing at this time. continue home meds per rec for trigeminal neuralgia and RA lovenox for dvt prophylaxi full code Quality Stroke Does the patient have a stroke diagnosis?: No VTE Prior VTE?: No VTE Risk Level:: Medical - moderate - high VTE Device Contraindication: Treatment Not Indicated VTE Drug Contraindication: N/A - Med Ordered
--- NOTE | 2025-01-05 17:19 | PHA.MEDREC ---
Pharmacy Consult ? Medication Reconciliation Pharmacy has completed the medication reconciliation. Spoke with patient in the ED via rehabilitation supervisor. Patient states she take carbamazepine 100 mg bid and carbamazepine 200 mg bid ( tdd - 300 mg bid). Patient is on 5 mg daily of prednisone. She also confirmed she was taking both strengths of pregabalin.
[2025-01-05] MEDS: Lactated Ringers 1,000 ML 100 ML IVCONT (17:39)
[2025-01-05] MEDS: Enoxaparin Sodium 40 MG/0.4 ML SYRINGE SUBCUT (17:40)
[2025-01-05 19:05] VITALS: BP 134/71; PULSE 92; RESP 11; TEMP 36.7; O2SAT 94
[2025-01-05 21:15] VITALS: PULSE 98; RESP 18; TEMP 36.6; O2SAT 95
[2025-01-05] MEDS: Calcium Carbonate 750 MG TAB.CHEW PO (21:23)
[2025-01-05 23:20] VITALS: PULSE 92; RESP 18; O2SAT 94
[2025-01-06] MEDS: Acetaminophen 325 MG TABLET 650 MG PO ×2 (00:03→10:34)
[2025-01-06 00:05] VITALS: BP 148/70; PULSE 94; RESP 16; TEMP 36.4; O2SAT 95
[2025-01-06 02:19] LABS: Influenza A PCR NEGATIVE (Negative); Influenza B PCR NEGATIVE (Negative); Resp Syncy Virus RNA Qual PCR NEGATIVE (Negative); SARS COV2 PCR INHOUSE NEGATIVE (Negative)
[2025-01-06 03:47] VITALS: BP 152/67; PULSE 90; RESP 16; TEMP 36.6; O2SAT 95
[2025-01-06] MEDS: Lactated Ringers 1,000 ML 100 ML IVCONT (03:47)
[2025-01-06] MEDS: ondansetron HCL 4 MG/2 ML VIAL IVPUSH (03:47)
[2025-01-06 08:17] VITALS: BP 144/76; PULSE 92; RESP 16; TEMP 36.6; O2SAT 96
[2025-01-06] MEDS: predniSONE 5 MG TABLET PO (08:54)
[2025-01-06] MEDS: Pregabalin 150 MG CAPSULE PO (08:54)
[2025-01-06] MEDS: carBAMazepine 200 MG TABLET PO (08:54)
[2025-01-06] MEDS: Pregabalin 25 MG CAPSULE PO (08:54)
[2025-01-06 09:46] VITALS: BP 135/75; PULSE 83; RESP 16; TEMP 36.7; O2SAT 91
--- NOTE | 2025-01-06 10:22 | MHC.CM.PN ---
Dawna 01/06/25, Pt lives with her and mother. HCP on file and confirmed: Natalie. PCP confirmed: Lakshmi Rouse. For DME, pt. uses cane and walker. She does not have home care services. Family to transport home at [place]. DCP: home, self care. CM to follow for DC needs.
[2025-01-06] MEDS: carBAMazepine 100 MG TAB.CHEW PO (10:23)
[2025-01-06 11:38] VITALS: BP 135/61; PULSE 79; RESP 18; TEMP 36.6; O2SAT 97
--- NOTE | 2025-01-06 12:44 | PM.DS ---
DS: Providers Provider Date of Service: 01/06/25 Date of admission: 01/05/25 16:57 Date of discharge: 01/06/25 Primary care physician: Lakshmi Rouse MD DS: Diagnosis Discharge Diagnosis (1) Near syncope: Status: Acute DS: Summary Hospital Course Hospital Course: history of presenting illness: Date of Service: 01/05/25 Chief Complaint: dizziness and falls This is a 69-year-old female with pertinent history of trigeminal neuralgia, rheumatoid arthritis, gastroesophageal reflux disease, fibromyalgia here with dizziness and falls. Patient relates that she has been having intermittnt dizziness and ocasional falls. Last fall a week ago, but felt dizzy yesterday, has never had loss of concsiousness. She saw her neurologist today and was told to go to the ED. Work negative included including normal ECG and unremarkable head ct. hospital course: 69-year-old female with pertinent history of trigeminal neuralgia, rheumatoid arthritis, gastroesophageal reflux disease, fibromyalgia admitted with dizziness and falls, noted to have negative work with CT head and ECG, tele monitor showed no arrhythmia, orthostatic blood pressures were normal, patient treated with IV fluids, her headache and dizziness resolved she ambulated unsteady gait as per patient her dosages were recently uptitrated due to persistent neck pain and headache, recommend neck stretching exercises, low-calorie diet and discuss medication management with PCP and consultants, since all symptoms resolved patient hemodynamically stable she has been discharged home to continue all home medications. Time Attestation Discharge Coordination Time (in mins): 36 Quality: Safe Use of Opioids Does Pt have an Active Cancer Diagnosis on the Problem List?: No Quality: Stroke Does the patient have a stroke diagnosis?: No Physical Exam Vital Signs: Vital Signs: Last Vital Signs Temp 97.8 F 01/06/25 11:38 Pulse 79 01/06/25 11:38 Resp 18 01/06/25 11:38 BP 135/61 01/06/25 11:38 Pulse Ox 97 01/06/25 11:38 O2 Del Method Room Air 01/06/25 11:38 O2 Flow Rate 2 01/06/25 03:47 BMI result Body Mass Index 42.2 Const: Other: General? awake alert x3, in no acute distress.? Neck? no JVD. CVS? regular rate rhythm, Respiratory lungs clear to auscultation, no respiratory distress, no wheeze, no rhonchi. Gastrointestinal abdomen soft, non tender, bowel sounds audible, no guarding , no rigidity. Extremities no? peripheral edema. Neuro non focal Skin no rash psych appropriate affect DS: Data Data Completed and Pending Completed studies during hospitalization [Text1]: Procedures Assistance with Respiratory Ventilation, Less than 24 Consecutive Hours, Continuous Positive Airway Pressure (07/11/22) Replacement of Left Knee Joint with Synthetic Substitute, Uncemented, Open Approach (07/11/22) Labs on day of discharge: Laboratory Results - last 24 hr 01/05/25 01/06/25 13:48 01:30 Troponin I High Sens < 2.7 Influenza Type A (PCR) NEGATIVE Influenza Type B (PCR) NEGATIVE RSV RNA Qual (PCR) NEGATIVE SARS-CoV-2 RNA (RT-PCR) NEGATIVE Discharge Plan Discharge Anticipated Discharge Date/Time: 01/06/25 12:39 Patient Disposition: Home, Self-Care Discharge Diagnosis: near-syncope Referrals: Lakshmi Rouse MD [Primary Care Provider] - 1 Week Discharge Medications: Continued cholecalciferol (vitamin D3) 75 mcg (3,000 unit) tablet 75 mcg PO DAILY Qty: 90 0RF pregabalin 150 mg capsule 150 mg PO BID Qty: 60 0RF Rx Instructions: TDD = 175 MG BID omeprazole 40 mg Capsule,Delayed Release(Dr/Ec) 40 mg PO DAILY@0630 acetaminophen 650 mg Tablet Extended Release 650 mg PO Q8H PRN (Reason: Pain (Scale Score 1-3)) carbamazepine 100 mg tablet,chewable 100 mg PO BID Rx Instructions: tdd = 300 mg bid prednisone 5 mg tablet 5 mg PO DAILY Humira(CF) 40 mg/0.4 mL syringe kit 40 mg subcut WE@0900 carbamazepine 200 mg tablet 200 mg PO BID Rx Instructions: tdd = 300 mg bid diclofenac sodium 1 % gel 1 ea topical DAILY PRN (Reason: Pain (Scale Score 1-3)) pregabalin 25 mg capsule 25 mg PO BID Rx Instructions: TDD = 175 MG BID Discharge Orders: Discharge Order (Routine); Ordered 01/06/25 Ordered By: Cristal Ayala Diet: Advance to usual diet Activity on Discharge: As tolerated Stand Alone Forms: Patient Portal Discharge page Print Language: Solomon Islander Care Plan Goals: near-syncope likely due to recent up titration of medications recommend to discuss medications with PCP, drink fluids, neck exercises/ daily walks, low-fat low-calorie diet Health Concerns: fibromyalgia/trigeminal neuralgia Plan of Treatment: follow-up with primary care physician / neurology Assessment: as above
== END 2025-01-06 14:44 | disposition home or self-care (01) ==
LOC: HO.ED 15:04 → HO.EDOVER 17:06 → HO.IMC 01-06 07:24
PROVIDERS: Student in an Organized Health Care Education/Training Program; Admitting Provider Internal Medicine; Emergency Provider Emergency Medicine; PCP Internal Medicine; Visit Provider Hospitalist
DX: R55 Syncope and collapse (principal); R42 Dizziness and giddiness; R29.6 Repeated falls; K21.9 Gastro-esophageal reflux disease without esophagitis; G50.0 Trigeminal neuralgia; M06.00 Rheumatoid arthritis without rheumatoid factor, unspecified site; G47.30 Sleep apnea, unspecified; Z99.89 Dependence on other enabling machines and devices; E66.01 Morbid (severe) obesity due to excess calories; Z68.41 Body mass index [BMI] 40.0-44.9, adult; Z86.718 Personal history of other venous thrombosis and embolism; Z79.01 Long term (current) use of anticoagulants; Z79.899 Other long term (current) drug therapy; Z03.818 Encounter for observation for suspected exposure to other biological agents ruled out
CPT/HCPCS: 0241U; 36415; 70450; 71045; 80048; 84484; 85025; 93005; 94660; 99222; 99285; J1650; J2405; J7120

== ENCOUNTER → 2025-01-05 10:21 | Outpatient (BNV) | payer MEDICARE, SELFPAY | PROVIDERS: Emergency Provider Emergency Medicine; PCP Internal Medicine; Visit Provider Internal Medicine | DX: R42 Dizziness and giddiness (principal) | CPT/HCPCS: 93010 ==

== ENCOUNTER → 2025-01-05 13:28 | Outpatient (BNV) | payer MEDICARE, SELFPAY | PROVIDERS: Emergency Provider Emergency Medicine; PCP Internal Medicine; Visit Provider Radiology Diagnostic Radiology | DX: R42 Dizziness and giddiness (principal); R51.9 Headache, unspecified; R55 Syncope and collapse | CPT/HCPCS: 70450; 71045 ==

== ENCOUNTER → 2025-01-05 16:57 | Outpatient (BNV) | payer MEDICARE, SELFPAY | PROVIDERS: Admitting Provider Internal Medicine; Emergency Provider Emergency Medicine; PCP Internal Medicine; Visit Provider Internal Medicine | DX: R55 Syncope and collapse (principal) | CPT/HCPCS: 99222; 99239 ==

== ENCOUNTER 2025-01-12 11:24 | Emergency (ER) | payer MEDICARE, SELFPAY ==
--- NOTE | 2025-01-12 | ECG_ITS ---
Test Reason : syncope Blood Pressure : */* mmHG Vent. Rate : 73 BPM Atrial Rate : 73 BPM P-R Int : 154 ms QRS Dur : 90 ms QT Int : 380 ms P-R-T Axes : 63 36 32 degrees QTcB Int : 418 ms Normal sinus rhythm Normal ECG When compared with ECG of 05-Jan-2025 10:24, No significant change was found Referred By: Trinidad Shafer Electronically Signed By: Anibal Leslie
--- NOTE | ~2025-01-12 | CT_ITS ---
EXAMINATION: CT CERVICAL SPINE WITHOUT CONTRAST CLINICAL INFORMATION: Injury. COMPARISON: Correlated to MRI cervical spine report dated November 25, 2008. Images are not available on PACS. TECHNIQUE: Contiguous axial images through the cervical spine using 3 mm collimation with bone and soft tissue algorithm. Sagittal and coronal reformatted images acquired. This CT examination was performed using dose optimization techniques as appropriate, variously including the following: *Automated exposure control *Adjustment of mA and/or kV according to patient size (this includes techniques or standardized protocols for targeted exams where dose is matched to indication/reason for exam; i.e. extremities or head) *Use of iterative reconstruction technique. DLP: 409.96 mg centimeter. FINDINGS: Degenerative changes at the craniocervical junction/occipital condyle/lateral masses C1. Craniocervical junction is intact. Degenerative changes in the periodontal C1 region. Marginal osteophyte formation and/syndesmophyte formation C5-6 and T2-3. Multilevel facet joint hypertrophy more pronounced on the left side from C3 to C6. No gross malalignment between the vertebral bodies or the facet joints. C1 is intact. C2 is intact. C3 is intact. Left-sided facet joint hypertrophy. C4 is intact. Left-sided facet joint hypertrophy. C5 is intact. Left-sided facet joint hypertrophy. C6 is intact. Left facet joint hypertrophy. C7 is intact. No gross hematoma, prevertebral compartment. Calcified plaques in the right ICA. Calcified plaque left V4 segment. Pulmonary mosaic pattern... CT/CT cervical spine wo IV con IMPRESSION: Multilevel cervical spondylosis C3 C7 without acute fracture or trauma-related listhesis. Fleischner guidelines were followed. Electronically signed by: Zack Vargas MD 01/12/2025 01:05 PM EDT
--- NOTE | ~2025-01-12 | XR_ITS ---
EXAMINATION: XR CLAVICLE, RIGHT CLINICAL INFORMATION: s/p fall COMPARISON: January 12, 2025 and correlated to prior x-ray dictated May 12, 2022. TECHNIQUE: Single view of the right clavicle. FINDINGS: No acute cortical disruption. Degenerative changes in the acromioclavicular joint. XR/XR clavicle RT IMPRESSION: No acute fracture, right clavicle. Electronically signed by: Zack Vargas MD 01/12/2025 01:19 PM EDT
--- NOTE | ~2025-01-12 | XR_ITS ---
EXAMINATION: XR SHOULDER, RIGHT CLINICAL INFORMATION: s/p fall COMPARISON: May 12, 2022. TECHNIQUE: AP external rotation, Grashey, scapular Y, and axillary views of the right shoulder. FINDINGS: No acute cortical disruption or malalignment. No lytic or blastic lesion. No metallic or radiopaque foreign body. Multilevel spondylosis, axial skeleton. Questionable well-corticated calcifications in the supraspinatus tendon region. XR/XR shoulder RT min 2V IMPRESSION: Degenerative changes without acute fracture or dislocation. Electronically signed by: Zack Vargas MD 01/12/2025 01:07 PM EDT
--- NOTE | ~2025-01-12 | CT_ITS ---
EXAMINATION: CT HEAD WITHOUT IV CONTRAST HISTORY: head trauma. TECHNIQUE: Unenhanced helical CT of the head was performed per standard departmental protocol. Coronal and sagittal reformats of the head were also evaluated. One or more of the following techniques was used for dose reduction: Automated exposure control, adjustment of the mA and/or kV according to patient size, use of iterative reconstruction technique. DLP: 675 mGy-cm COMPARISON: Comparison is made with the prior examination dated 01/05/2025. 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 The brain parenchyma is otherwise unremarkable. There is normal rosenbaum/white differentiation. The ventricular system is normal in size and configuration. There is no mass effect or midline shift. No intra- or extra-axial fluid collections are identified. SINUSES: There is a polyp versus mucous retention cyst in the right maxillary sinus. The mastoid air cells and middle ear cavities are well pneumatized. ORBITS: The visualized orbits are unremarkable. BONES/SOFT TISSUES: The extracranial soft tissues are unremarkable. The calvarium is intact. No suspicious lytic or sclerotic lesions. CT/CT head/brain wo IV con IMPRESSION: No acute intracranial abnormality. Electronically signed by: Raza Recinos MD 01/12/2025 12:59 PM EDT
--- NOTE | ~2025-01-12 | MR_ITS ---
CLINICAL HISTORY: repeat visits for dizziness, ataxia Metal artifact from trigeminal nerve repaired surgery 9 years ago, per pt there was no implant MR Brain without gadolinium Comparison: CT/ME/SR - CT HEAD/BRAIN WO IV CON - 01/12/25 12:[address]/ME/SR - CT HEAD/BRAIN WO IV CON - 01/05/25 15:02 EDT Findings: No restricted diffusion. No intra-axial mass or hemorrhage. No midline shift. No hydrocephalus. Vascular flow voids are intact. The orbits are normal. Mucous retention cyst in the right maxillary sinus. No focal bone lesion. IMPRESSION: 1. No acute intracranial findings. This document has been electronically signed by: Juan Miguel Arreola MD on 01/12/2025 18:28:56
[2025-01-12 11:29] VITALS: BP 146/70; BP 146/80; PULSE 76; PULSE 82; RESP 16; TEMP 36.2; O2SAT 95; O2SAT 96; BMI 33.2
--- NOTE | 2025-01-12 12:01 | ED.FALL ---
HPI - Fall General Chief Complaint: Fall Stated Complaint: UNWIT FALL,R SHOULDER PAIN,HIT HEAD,-LOC PER EMS Time Seen by Provider: 01/12/25 11:26 Source: patient, EMS, old records reviewed and field sales consultant Mode of arrival: EMS Limitations: no limitations History of Present Illness ED Provider: YO HPI Narrative: 69 yo female with PMH of vertigo, sleep apnea, kidney stones, splenic artery aneurysm, GERD here with c/o being dizzy on and off for months she was seen last week here for same she denies known precipiting event this AM she states she knew it was going to happen again it was much more severe. She thought she needed her CPAP but then tried to use her walker fell hit head on wall no LOC but c/o headache, neck pain, R shoulder and clavicle pain. NO prolonged downtime. She states she doesn't know why this is happening, rapid onset then goes away. This is the first time she has fallen. MD complaint: fall Onset (ago): hour(s) (1030am today) Fall from: standing Fall witnessed: yes, by family Place fall occurred: home Loss of consciousness: none Prolonged down time: no Symptoms prior to fall: lightheadedness and dizziness Context: other (dizziness on and off for 2 months) Location of injury: head and neck Location of injury - extremities: right: shoulder Severity: moderate Quality: dull and aching Associated symptoms (after fall): headache Related Data Home Medications ?Medication ?Instructions ?Recorded ?Confirmed diclofenac sodium 1 % topical gel 1 ea topical DAILY PRN Pain (Scale 09/18/23 01/07/25 Score 1-3) pregabalin 25 mg capsule 25 mg PO BID 12/11/24 01/07/25 acetaminophen 650 mg 650 mg PO Q8H PRN Pain (Scale 01/05/25 01/07/25 tablet,extended release Score 1-3) adalimumab 40 mg/0.4 mL 40 mg subcut WE@0900 01/05/25 01/07/25 subcutaneous syringe kit (Lary(CF)) carbamazepine 100 mg chewable 100 mg PO BID 01/05/25 01/07/25 tablet omeprazole 40 mg capsule,delayed 40 mg PO DAILY@0630 01/05/25 01/07/25 release prednisone 5 mg tablet 5 mg PO DAILY 01/05/25 01/07/25 Previous Rx's ?Medication ?Instructions ?Recorded cholecalciferol (vitamin D3) 75 75 mcg PO DAILY #90 tabs 10/15/24 mcg (3,000 unit) tablet pregabalin 150 mg capsule 150 mg PO BID #60 caps 12/11/24 meclizine 25 mg tablet (Dramamine 25 mg PO TID PRN dizziness #20 tabs 01/12/25 Less Drowsy) Allergies Allergy/AdvReac Type Severity Reaction Status Date / Time hydroxychloroquine AdvReac Intermediate Questionable Verified 01/12/25 11:33 retinopathy Review of Systems Review of Systems: Constitutional : No Fever, No Chills ENT/Mouth : No Ear Pain, No Hoarseness, No sore throat Eyes: No Eye Pain, No Swelling, No Redness, No Foreign Body Cardiovascular : No Chest Pain, No SOB Respiratory : No Cough, No Dyspnea Gastrointestinal : No Nausea, No Vomiting, No Diarrhea, No abdominal Pain Genitourinary : No Dysuria, No Hematuria Musculoskeletal : positive joint pain, No Myalgias, No Joint Swelling, pos neck pain Skin : No Skin lacerations, No rash Neuro : No Weakness, No Numbness, No Loss of Consciousness, pos Dizziness, pos Headache Psych : No Anxiety/Panic, No Depression All other systems reviewed and are negative COUNT INCLUDES THE [facility] Past Medical History Attestation statement: The following information was validated with the patient. Source: old records reviewed Medical History Intertrigo Vitamin D deficiency Recurrent kidney stones Sleep apnea Splenic artery aneurysm Shoulder pain, right Trigeminal neuralgia of right side of face Seronegative rheumatoid arthritis Loose right total knee arthroplasty Gastroesophageal reflux disease Hiatal hernia Tailor's bunion of left foot Fibromyalgia Osteoarthritis Impaired fasting glucose Insomnia Cervical spondylosis without myelopathy Autoimmune urticaria Morbid obesity due to excess calories Surgical History S/P hip replacement History of esophagogastroduodenoscopy (EGD) History of colonoscopy History of arthroscopy of right shoulder History of laparoscopic cholecystectomy Status post laser lithotripsy of ureteral calculus History of bunionectomy of left great toe History of cranioplasty History of shoulder surgery Status post right knee replacement Family History Family History Father Emphysema of lung Mother Hypertension Maternal Grandmother No problems noted. Maternal Grandfather No problems noted. Paternal Grandmother No problems noted. Paternal Grandfather No problems noted. Maternal Aunt Diabetes Sister No problems noted. Son No problems noted. Daughter No problems noted. Social History Social History Household Members: Spouse and Family Household Members Other:: mother,daughter Housing: House Are you a primary primary care coordinator to a significant other at home: No Do you presently have visiting nurse or other home services: No Alcohol intake: never Patient Tobacco Use Status: Never used Tobacco Smoked in Last 30 Days: No e-Cigarette/Vaping Use: Never Used Use of substances other than those prescribed or required for medical reasons: No Advance Directives: No Advance Directives Information Provided: Yes Do you have a plan to hurt others: No Plan service: No Current occupational status: unemployed Current occupation: rt handed Cognitive needs: No Hearing needs: No Vision needs: No Physical Exam Vital Signs: Vital Signs: Last Vital Signs Temp 97.3 F 01/12/25 18:01 Pulse 74 01/12/25 20:22 Resp 14 01/12/25 20:22 BP 138/66 01/12/25 20:22 Pulse Ox 96 01/12/25 20:22 O2 Del Method Room Air 01/12/25 20:22 BMI result Body Mass Index 33.2 Appearance: Alert. Oriented X3. No acute distress. Eyes: Pupils equal, round and reactive to light. ENT: Pharynx normal. Neck: Normal inspection. collar in place mild midline ttp C5-C6 no step offs CVS: Normal heart rate and rhythm. Pulses normal. Respiratory: No respiratory distress. Breath sounds normal. Abdomen: Soft and nontender. Skin: Skin warm and dry. Normal skin color. Normal skin turgor. Extremities: No lower extremity edema. R shoulder ttp no obv deformity, R clavicle ttp distal NV intact Neuro: Oriented X 3. No motor deficit. No sensory deficit. CN2-12 intact Course Course Course Narrative: given waxing and waning symptoms for 2 months and much worse the past week she is not a candidat for TNK she cannot ambulate she does not she gets headaches and room spinning when this happens - medications and MRI ordered Reevaluation(s) Reevaluation #1: signed out to Dr. Manuel pending work up Reevaluation #2: 01/12/2025 at 21:17 hours, Dr. Dean Manuel's note I assumed care of this patient from my colleague, Dr. Shafer pending MRI brain result. The MRI of the brain was normal with no evidence of posterior stroke/cerebellar stroke. I did discuss this with the patient. The patient most likely has positional vertigo. She was given meclizine 25 mg orally and given a prescription for meclizine 25 mg 3 times a day as needed for dizziness. She was given printed and verbal instructions and discharged home. Time: 21:17 Medications Administered Discontinued Medications Generic Name Dose Route Start Last Admin Trade Name Nuris PRN Reason Stop Dose Admin Acetaminophen 975 mg 01/12/25 14:48 01/12/25 15:06 Acetaminophen 325 Mg Tablet PO 01/12/25 14:49 975 mg ONCE ONE Administration Lactated Ringer's 1,000 mls @ 999 mls/hr 01/12/25 13:31 01/12/25 15:06 Lr IV 01/12/25 14:31 Infused .Q1H1M ONE Infusion Ketorolac Tromethamine 15 mg 01/12/25 15:45 01/12/25 16:16 Ketorolac Tromethamine 15 Mg/Ml Vial IVPUSH 01/12/25 15:46 15 mg ONCE ONE Administration Prochlorperazine Edisylate 10 mg 01/12/25 15:45 01/12/25 16:16 Prochlorperazine Edisylate 10 Mg/2 Ml Vial IVPUSH 01/12/25 15:46 10 mg ONCE ONE Administration Medical Decision Making Medical Decision Making [facility] Narrative: 69 yo female with PMH of vertigo, sleep apnea, kidney stones, splenic artery aneurysm, GERD here with c/o intermittent abrupt onset dizziness for months but today was worse and she fell at this time she c/o dizziness has no neuro deficits on exam but from the fall c/o headache, neck pain, R shoulder and clavicle pain. At this time will need labs, EKG, xray of RUE, CT head and neck, she has no other injuries noted. She has had intermittent abrupt onset dizziness seems more peripheral - given chronicity doubt stroke Differential Diagnosis Differential Diagnoses: The differential diagnosis associated with the presentation includes vertigo, head injury, anemia, dehydration, given waxing and waning for months doubt stroke, BPPV Admission/Observation Consideration of admission/observation: Escalation of care including admission/observation considered still dizzy ortho VS negative IVF ordered MRI ordered for 515pm she does have ataxia signed out to Dr. Manuel pending MRI Lab Data MDM Lab Attestation statement: I reviewed the patient's lab results. 01/12/25 11:50 01/12/25 11:50 Labs: Lab Results 01/12/25 01/12/25 01/12/25 Range/Units 11:50 14:48 14:57 WBC 4.3 L (4.8-10.8) X10*3/uL RBC 3.88 L (4.20-5.50) X10*6/uL Hgb 12.5 (12.0-16.0) g/dl Hct 36.0 L (37.0-47.0) % MCV 92.8 (80.0-98.0) fL MCH 32.2 (27.0-33.0) pg MCHC 34.7 (31.0-35.0) g/dl RDW 13.4 (11.0-16.0) % Plt Count 151 L (160-400) X10*3/uL MPV 9.4 (9.4-12.3) fL Immature Gran % (Auto) 0.2 (0.0-0.4) % Neut % (Auto) 43.0 L (45-73) % Lymph % (Auto) 43.2 H (20-40) % Luna % (Auto) 11.1 H (2-11) % Eos % (Auto) 1.6 (0-4) % Baso % (Auto) 0.9 (0-2) % Lymph # (Auto) 1.9 (1.2-4.9) X10*3/uL Luna # (Auto) 0.5 (0.1-1.2) X10*3/uL Eos # (Auto) 0.1 (0.0-0.4) X10*3/uL Baso # (Auto) 0.0 (0.0-0.2) X10*3/uL Abs Immat Gran (auto) 0.01 (0.00-0.03) X10*3/uL Absolute Neuts (auto) 1.9 L (2.0-8.3) x10*3/uL Absolute Nucleated RBC 0.000 (0.0-0.012) X10*3/uL Nucleated RBC % (auto) 0.0 (0.0-0.2) /100WBC VBG pH 7.40 (7.32-7.43) VBG pCO2 39 mmHg VBG pO2 35 mmHg VBG HCO3 25 (22-26) mmol/L VBG O2 Saturation 56.0 % VBG Base Excess 0.6 mmol/L Sodium 142 (135-145) mmol/L Potassium 3.9 (3.3-5.1) mmol/L Chloride 113 H (96-108) mmol/L Carbon Dioxide 23 (22-29) mmol/L Anion Gap 10 L (12-20) BUN 12 (9-16) mg/dL Creatinine 0.66 (0.5-1.4) mg/dL Estim Creat Clear Calc 75.9 Estimated GFR > 60 Random Glucose 98 (60-115) mg/dL Calcium 8.5 (8.4-10.2) mg/dL Magnesium 2.0 (1.6-2.6) mg/dL Total Bilirubin 0.3 (0.0-1.0) mg/dL AST 23 (5-31) U/L ALT 14 (0-31) U/L Alkaline Phosphatase 83 (39-117) U/L Troponin I High Sens < 2.7 < 2.7 (<3.5-17.0) ng/L Total Protein 6.8 (6.5-8.0) g/dL Albumin 3.8 (3.5-5.0) g/dL Influenza Type A (PCR) NEGATIVE (Negative) Influenza Type B (PCR) NEGATIVE (Negative) RSV RNA Qual (PCR) NEGATIVE (Negative) SARS-CoV-2 RNA (RT-PCR) NEGATIVE (Negative) Independent Interpretation I performed an independent interpretation of an: EKG, Plain X-Ray and CT Scan Interpretation: Rate: Rhythm: [place]: Normal P waves. Normal STEVE. Normal QRS complex. ST T wave : qTC: prior studies: The study has been interpreted contemporaneously by me. . Radiology Impression Discussion of test interpretation with radiology: I have reviewed the radiologist's reading. Radiologist Impression: MR Brain without gadolinium Comparison: CT/VA/SR - CT HEAD/BRAIN WO IV CON - 01/12/25 12:[address]/VA/SR - CT HEAD/BRAIN WO IV CON - 01/05/25 15:02 EDT Findings: No restricted diffusion. No intra-axial mass or hemorrhage. No midline shift. No hydrocephalus. Vascular flow voids are intact. The orbits are normal. Mucous retention cyst in the right maxillary sinus. No focal bone lesion. IMPRESSION: 1. No acute intracranial findings. This document has been electronically signed by: Juan Miguel Arreola MD on 01/12/2025 18:28:56 Independent Historian Clinical information obtained from an independent historian. History obtained from or confirmed by: EMS External Record Review External record reviewed: Inpatient record and Outpatient record Discharge Plan Discharge Clinical Impression: Dizziness Patient Disposition: Home, Self-Care Instructions: Dizziness (ED) Additional Instructions: The MRI of your brain was normal which is reassuring. At this time, I believe your dizziness is caused by the balance mechanism located in the bony /inner ear balance mechanism. Take meclizine 25 mg pills, 1 pill 3 times a day for the next 3 days for dizziness then as needed for dizziness. This medication will make you sleepy. Do not drive or work while taking this medication. Follow-up with your doctor in 2 days. Please return to the emergency department if your symptoms get worse or if you develop any symptoms that are concerning to you. Prescriptions: New meclizine [Dramamine Less Drowsy] 25 mg tablet 25 mg PO TID PRN (Reason: dizziness) Qty: 20 0RF No Action cholecalciferol (vitamin D3) 75 mcg (3,000 unit) tablet 75 mcg PO DAILY Qty: 90 0RF pregabalin 150 mg capsule 150 mg PO BID Qty: 60 0RF Rx Instructions: TDD = 175 MG BID omeprazole 40 mg Capsule,Delayed Release(Dr/Ec) 40 mg PO DAILY@0630 acetaminophen 650 mg Tablet Extended Release 650 mg PO Q8H PRN (Reason: Pain (Scale Score 1-3)) carbamazepine 100 mg tablet,chewable 100 mg PO BID Rx Instructions: tdd = 300 mg bid prednisone 5 mg tablet 5 mg PO DAILY Humira(CF) 40 mg/0.4 mL syringe kit 40 mg subcut WE@0900 diclofenac sodium 1 % gel 1 ea topical DAILY PRN (Reason: Pain (Scale Score 1-3)) pregabalin 25 mg capsule 25 mg PO BID Rx Instructions: TDD = 175 MG BID Print Language: Lithuanian
[2025-01-12 12:05] LABS: MANUAL DIFF FLAG NO
[2025-01-12 12:07] LABS: Basophils Percent Auto 0.9 % (0-2); Eosinophils Absolute Auto 0.1 X10*3/uL (0.0-0.4); Eosinophils Percent Auto 1.6 % (0-4); Hemoglobin 12.5 g/dl (12.0-16.0); Imm Gran Abs Auto 0.01 X10*3/uL (0.00-0.03); Imm Gran Pct Auto 0.2 % (0.0-0.4); Lymphocytes Absolute Auto 1.9 X10*3/uL (1.2-4.9); Lymphocytes Percent Auto 43.2 % (20-40); Mean Corpuscular HGB Conc 34.7 g/dl (31.0-35.0); Mean Corpuscular Hemoglobin 32.2 pg (27.0-33.0); Mean Corpuscular Volume 92.8 fL (80.0-98.0); Mean Platelet Volume 9.4 fL (9.4-12.3); Monocytes Absolute Auto 0.5 X10*3/uL (0.1-1.2); Monocytes Percent Auto 11.1 % (2-11); Neutrophils Absolute Auto 1.9 x10*3/uL (2.0-8.3); Platelet Count 151 X10*3/uL (160-400); Red Blood Count 3.88 X10*6/uL (4.20-5.50); Red Cell Distribution Width 13.4 % (11.0-16.0); White Blood Count 4.3 X10*3/uL (4.8-10.8)
[2025-01-12 12:49] LABS: Influenza A PCR NEGATIVE (Negative); Influenza B PCR NEGATIVE (Negative); Resp Syncy Virus RNA Qual PCR NEGATIVE (Negative); SARS COV2 PCR INHOUSE NEGATIVE (Negative)
[2025-01-12 12:55] LABS: Alanine Aminotransferase 14 U/L (0-31); Albumin Level 3.8 g/dL (3.5-5.0); Anion Gap 10 (12-20); Aspartate Amino Transferase 23 U/L (5-31); Bilirubin Total 0.3 mg/dL (0.0-1.0); Blood Urea Nitrogen 12 mg/dL (9-16); Calcium 8.5 mg/dL (8.4-10.2); Carbon Dioxide 23 mmol/L (22-29); Chloride 113 mmol/L (96-108); Creatinine Clr Calc Pharmacy 75.9; Estimated Glomerular Filt Rate > 60; Glucose Random 98 mg/dL (60-115); Potassium 3.9 mmol/L (3.3-5.1); Sodium 142 mmol/L (135-145); Total Protein 6.8 g/dL (6.5-8.0); Troponin-I High Sensitivity < 2.7 ng/L (<3.5-17.0)
[2025-01-12 13:28] VITALS: BP 119/72; BP 132/69; BP 146/80; PULSE 66; PULSE 78; PULSE 89
--- NOTE | 2025-01-12 13:29 | PC.NURSE ---
c-collar removed by . orthostatic vital signs completed. pt reports increased dizziness during position change. pt noted to have extremely unsteady gait/swaying back and forth. unsteady gait. provider notified/aware of results.
[2025-01-12 13:36] LABS: Alkaline Phosphatase 83 U/L (39-117)
[2025-01-12] MEDS: Lactated Ringers 1,000 ML 999 ML IV (13:50)
--- NOTE | 2025-01-12 13:52 | PC.NURSE ---
20gIV placed in the right AC - IVF administered per provider order.
[2025-01-12 15:01] LABS: VBG Base Excess 0.6 mmol/L; VBG HCO3 25 mmol/L (22-26); VBG pCO2 39 mmHg; VBG pO2 35 mmHg
[2025-01-12 15:04] LABS: Venous Blood Gas Refer to POC result
[2025-01-12] MEDS: Acetaminophen 325 MG TABLET 975 MG PO (15:06)
--- NOTE | 2025-01-12 15:06 | PC.NURSE ---
pt verbalizing increase in headache. neuros remain intact. medication administered per provider order. effectiveness pending.
[2025-01-12 15:09] VITALS: BP 161/82; PULSE 85; RESP 18; TEMP 36.3; O2SAT 96
[2025-01-12 15:29] LABS: Troponin-I High Sensitivity < 2.7 ng/L (<3.5-17.0)
--- OUTSIDE RECORDS SUMMARY | 2025-01-12 15:42 | XMS_ITS | Clinical Summary ---
Author Organization [facility] Address [address] [place] [address] Care Team Providers Care Environmental Field Office Manager Name Role Phone Unavailable Primary Care Provider [...]
--- OUTSIDE RECORDS SUMMARY | 2025-01-12 15:42 | XMS_ITS | Clinical Summary ---
Author Organization [facility] Address [address] [place] [address] Care Team Providers Care Attraction Worker Name Role Phone Unavailable Primary Care Provider [...]
--- OUTSIDE RECORDS SUMMARY | 2025-01-12 15:42 | XMS_ITS | Continuity of Care Document ---
Author Organization [facility] Address [address] [place] [address], [address] Floor, [address] [place] [id number]- Care Team Providers Care Powerhouse Laborer Name Role Phone Padma MAYO, Lakshmi Schmidt Primary Care Physician [place] [facility] [place]): [place]10[place] - 01/09/25 [facility] [address] [place] [address] [address]rd Floor, [address] [place] [id number]- Encounter Type: Triage Allergies, Adverse Reactions, Alerts [...] 1 carBAMazepine 100 mg oral tablet, chewable See Instructions, CHEW AND SWALLOW 1 TABLET BY MOUTH TWICE DAILY IN CONJUNCTION WITH 200 MG TABLETSFOR TOTAL DOSE OF 500 MG 2 TIMES DAILY, # 180 tablet, Refills 3, Tot. Refills 3, 12/17/24 10:28:00 AM EDT, Instructions Replace Required Details, Route to Pharmacy Electronically, [facility]#[id number], 154, cm, 11/19/24 13:14:00 EST, Height, 75.5, kg, 04/03/24 17:59:00 EDT, Dry Weight Start Date: 12/17/24 Status: Ordered Quantity: 180.0 Unit: tablet Repeat number: 4 carBAMazepine 200 mg oral tablet 2, tablet, By Mouth, 2 times a day, # 360 tablet, Refills 3, Tot. Refills 3, Maintenance, 12/16/24 6:02:00 AM EDT, [id number], 154, cm, 11/19/24 13:14:00 EST, Height, 75.5, kg, 04/03/24 17:59:00 EDT, Dry Weight Start Date: 12/16/24 Status: Ordered Quantity: 360.0 Unit: tablet Repeat number: 4 celecoxib 200 mg oral capsule = 200 [...] 2 times a day, # 180 capsule, 3 Refills, Maintenance, 12/16/24 6:02:00AM EDT, Capsule, [facility] #[id number], Partial fill upon patient request if the prescriptionis for a schedule II opioid drug., 154, cm, 11/19/24 13:14:00 EST, Height, 75.5, kg, 04/03/24 17:59:00 EDT, Dry Weight Start Date: 12/16/24 Status: Ordered Quantity: 180.0 Unit: capsule Repeat number: 4 pregabalin 25 mg oral capsule See Instructions, One 25mg cap by mouth in addition to 150mg dose twice daily for a total of 175mg BID, # 60 capsule, 5 Refills, Maintenance, 12/18/24 6:10:00 AM EDT, [facility] #[id number], Instructions in Croatian please. [employer] checked, 154, cm, 11/19/24 13:14:00 EST, Height, 75.5, kg, 04/03/24 17:59:00 EDT, Dry Weight Start Date: 12/18/24 Status: Ordered Quantity: 60.0 Unit: capsule Repeat [...] Position: Reference Physician Member Role: PCP Address: [address] [place] [address] Telecom: Care Team Related Persons Name: KURTIS NAVARRO Insurance Providers Guarantor name: MONO BOWER Health Plan Information #: 1 Payer: NA Member Number: NA Policy Number: NA Group Number: NA
--- NOTE | 2025-01-12 15:55 | PC.NURSE ---
pt still extremely unsteady on feet despite IVF resuscitation. MRI screening form filled out/faxed/placed in pt's chart.
[2025-01-12] MEDS: Ketorolac Tromethamine 15 MG/ML VIAL IVPUSH (16:16)
[2025-01-12] MEDS: Prochlorperazine Edisylate 10 MG/2 ML VIAL IVPUSH (16:16)
--- NOTE | 2025-01-12 17:19 | PC.NURSE ---
pt to MRI at this time.
[2025-01-12 18:01] VITALS: BP 136/69; PULSE 69; RESP 18; TEMP 36.3; O2SAT 96
[2025-01-12 20:22] VITALS: BP 138/66; PULSE 74; RESP 14; O2SAT 96
--- NOTE | 2025-01-12 20:23 | MHC.EDTECH ---
's number: [phone] Thomas
[2025-01-12] MEDS: Meclizine HCl 25 MG TABLET PO (21:30)
[2025-01-12 21:35] VITALS: BP 138/66; PULSE 74; RESP 14; TEMP 36.3; O2SAT 96
== END 2025-01-12 21:53 | disposition home or self-care (01) ==
PROVIDERS: Emergency Medicine; Emergency Provider Emergency Medicine Emergency Medical Services; PCP Internal Medicine
DX: S09.90XA Unspecified injury of head, initial encounter (principal); R42 Dizziness and giddiness; R55 Syncope and collapse; R51.9 Headache, unspecified; M25.511 Pain in right shoulder; R11.0 Nausea; W18.30XA Fall on same level, unspecified, initial encounter; Y93.9 Activity, unspecified; Y92.9 Unspecified place or not applicable; Y99.8 Other external cause status; Z03.818 Encounter for observation for suspected exposure to other biological agents ruled out; Z79.899 Other long term (current) drug therapy
CPT/HCPCS: 0241U; 36415; 70450; 70551; 72125; 73000; 73030; 80053; 82803; 83735; 84484; 85025; 93005; 96361; 96374; 96375; 99285; J0737; J1885; J7120

== ENCOUNTER → 2025-01-12 11:46 | Outpatient (BNV) | payer MEDICARE, SELFPAY | PROVIDERS: Emergency Provider Emergency Medicine Emergency Medical Services; PCP Internal Medicine; Visit Provider Internal Medicine Cardiovascular Disease | DX: R55 Syncope and collapse (principal) | CPT/HCPCS: 93010 ==

== ENCOUNTER → 2025-01-12 12:50 | Outpatient (BNV) | payer MEDICARE, SELFPAY | PROVIDERS: Emergency Provider Emergency Medicine; PCP Internal Medicine; Visit Provider Radiology Diagnostic Radiology | DX: R42 Dizziness and giddiness (principal); M47.812 Spondylosis without myelopathy or radiculopathy, cervical region; S09.90XA Unspecified injury of head, initial encounter; M19.011 Primary osteoarthritis, right shoulder; M25.511 Pain in right shoulder; M25.512 Pain in left shoulder | CPT/HCPCS: 70450; 70551; 72125; 73000; 73030 ==

== ENCOUNTER 2025-01-14 09:40 | Outpatient (AMB) | payer MEDICARE, SELFPAY ==
--- OUTSIDE RECORDS SUMMARY | 2025-01-14 10:32 | XMS_ITS | Clinical Summary ---
Author Organization [facility] Address [address] [place] [address] Care Team Providers Care Pan Puller Name Role Phone Unavailable Primary Care Provider [...]
--- OUTSIDE RECORDS SUMMARY | 2025-01-14 10:32 | XMS_ITS | Clinical Summary ---
Author Organization [facility] Address [address] [place] [address] Care Team Providers Care Advertisement Compositor Name Role Phone Unavailable Primary Care Provider [...]
--- NOTE | 2025-01-14 10:43 | A.OFFPC_ITS ---
Vital Signs 01/14/25 10:48 Height 5 ft Weight 169 lb BMI 33.0 BP 136/70 Blood Pressure Location Lt brachial Position Sitting Respiration 15 Pulse 75 Pulse Source Pulse Oximeter Temp 97.7 F Temp Source Oral Pulse Oximetry (%) 99 Oxygen Delivery Method Room Air Intake Visit Reasons: Rt total shoulder replacement 01/20 Dr. Delia BRYANT Intake Note: Pt is here today for Rt total shoulder replacement 01/[address] Delia BRYANT Allergies hydroxychloroquine Adverse Reaction (Intermediate, Verified 01/14/25 16:57) Questionable retinopathy Medication List - Last Reconciled 01/14/25 by Lakshmi Rouse MD acetaminophen ER 650 mg PO Q8H PRN adalimumab (Humira(CF)) 40 mg subcut WE@0900 carbamazepine 100 mg PO BID cholecalciferol (vitamin D3) 75 mcg PO DAILY diclofenac sodium 1% 1 ea topical DAILY PRN meclizine (Dramamine Less Drowsy) 25 mg PO TID PRN omeprazole 40 mg PO DAILY@0630 pregabalin 150 mg PO BID pregabalin 25 mg PO BID Tobacco use date assessed: 01/14/25 Fall risk assessment: 2 + Falls in past year Last assessed Fall Risk: 01/14/25 Dental Screening Dental Screen Date: 01/14/25 Did you have a dental visit in the last 12 months?: No Did you have a dental problem in the last 6 months where you did not have access to dental care?: No Was dental information given to patient?: Patient has dentist HPI Rt total shoulder replacement 01/20 Dr. Delia BRYANT HPI Details 69-year-old female with history of seron egative rheumatoid arthritis followed by rheumatology, obstructive sleep apnea currently using CPAP, trigeminal neuralgia controlled with carbamazepine and prescribed gabapentin 175 mg twice a day by Dr. London at [facility] neurology, -history of recurrent nephrolithiasis, currently asymptomatic, here today for preoperative examination for right reversal total shoulder arthroplasty scheduled for 01/20/[address] Catherine Ballesteros. She has feeling well, and has already put on hold Humira injections prior to surgery. Patient however has been experiencing acute onset of lightheadedness, recently aggravated by sudden changes in position. She has been referred to vestibular rehab and there was no positional vertigo seen. She also has been seen by Cardiology who states that her symptoms lightheadedness is not of cardiac in origin . Patient does report having more episodes of lightheadednes after her pregabalin dose was increased to 175 mg taken twice a day by her neurologist for treatment of trigeminal neuralgia.. . [facility] Medical History Intermittent lightheadedness Intertrigo Vitamin D deficiency Recurrent kidney stones Sleep apnea Splenic artery aneurysm Shoulder pain, right Trigeminal neuralgia of right side of face Seronegative rheumatoid arthritis Loose right total knee arthroplasty Gastroesophageal reflux disease Hiatal hernia Tailor's bunion of left foot Fibromyalgia Osteoarthritis Impaired fasting glucose Insomnia Cervical spondylosis without myelopathy Autoimmune urticaria Morbid obesity due to excess calories Surgical History S/P hip replacement History of esophagogastroduodenoscopy (EGD) History of colonoscopy History of arthroscopy of right shoulder History of laparoscopic cholecystectomy Status post laser lithotripsy of ureteral calculus History of bunionectomy of left great toe History of cranioplasty History of shoulder surgery Status post right knee replacement Family History Father Emphysema of lung Mother Hypertension Maternal Grandmother No problems noted. Maternal Grandfather No problems noted. Paternal Grandmother No problems noted. Paternal Grandfather No problems noted. Maternal Aunt Diabetes Sister No problems noted. Son No problems noted. Daughter No problems noted. Social History Household Members: Spouse and Family Household Members Other:: mother,daughter Housing: House Are you a primary intensive care ambulance paramedic to a significant other at home: No Do you presently have visiting nurse or other home services: No Alcohol intake: never Patient Tobacco Use Status: Never used Tobacco e-Cigarette/Vaping Use: Never Used service: No Current occupational status: unemployed Current occupation: rt handed Cognitive needs: No Hearing needs: No Vision needs: No Questionnaire PHQ-9 Over the last 2 weeks, how often have you been bothered by any of the following problems? 1. Little interest or pleasure in doing things: more than half the days 2. Feeling down, depressed, or hopeless: not at all 3. Trouble falling or staying asleep, or sleeping too much: several days 4. Feeling tired or having little energy: several days 5. Poor appetite or overeating: not at all 6. Feeling bad about yourself - or that you are a failure or have let yourself or your family down: not at all 7. Trouble concentrating on things, such as reading the newspaper or watching television: not at all 8. Moving or speaking so slowly that other people could have noticed. Or the opposite - being so fidgety or restless that you have been moving around a lot more than usual: not at all 9. Thoughts that you would be better off or of hurting yourself in some way: not at all Total score: 4 Depression Screening Interpretation: Negative Depression Screening Done: Yes 90660 - PHQ-9 Billing: Yes Source: Developed by Drs. Raza Nova, Kassandra Munoz, Steven Velasco and colleagues, with an educational nyla from [employer]. Thrive Questionnaire Date Thrive assessed: 01/06/25 I am a: Patient What is your living situation today?: I have a steady place to live Within the past 12 months, did the food you bought not last and you didn't have the money to get more?: Never true Within the past 12 months, did you worry whether your food would run out before you got money to buy more?: Never true Do you have trouble paying for medicines?: No Do you have trouble getting transportation to medical appointments?: No Do you have trouble paying your heating and electricity bill?: No Do you have trouble taking care of your child, family member or friend?: No Do you have trouble with day-to-day activities such as bathing, preparing meals, shopping, managing finances, etc.?: No Are you currently unemployed and looking for a job?: No Are you interested in more education?: No Please select the resources that you would like help with: None Currently or been in a relationship where the following occur: No concerns reported THRIVE Score: 0 AUDIT C Alcohol Use Questionnaire (AUDIT-C) 1. How often do you have a drink containing alcohol?: Never Total Score: 0 JOSÉ MANUEL-7 AMB Questionnaire JOSÉ MANUEL-7 Date JOSÉ MANUEL - 7 assessed: 01/14/25 Feeling nervous, anxious, or on edge: 0 = Not at all Not being able to stop or control worryin = Not at all Worrying too much about different things: 0 = Not at all Trouble relaxin = Not at all Being so restless that it is hard to sit still: 0 = Not at all Becoming easily annoyed or irritable: 0 = Not at all Feeling afraid as if something awful might happen: 0 = Not at all Total JOSÉ MANUEL-7 score (0-4 normal; 5-9 mild; 10-14 moderate; 15-21 severe): 0 Source: Developed by Drs. Raza Nova, Kassandra Munoz, Steven Velasco and colleagues, with an educational nyla from [employer]. JOSÉ MANUEL-7 Assessment Billing JOSÉ MANUEL-7 Assessment Tool: JOSÉ MANUEL-7 Assessment 16348 Review of Systems Const Denies fever(s) Eyes Denies change in vision ENT Denies nasal congestion and Denies nasal discharge Card Denies chest pain, Denies lightheadedness, Denies palpitations and Denies dyspnea Resp Denies chest congestion, Denies cough, Denies dyspnea and Denies wheezing GI Denies abdominal pain, Denies change in bowel habits and Denies heartburn Denies hematuria, Denies urinary frequency, Denies dysuria and Denies urinary urgency Musc Details: Recurrent pain tingling over left check Denies joint swelling, Reports muscle cramps and Denies muscle weakness Neuro Reports as per HPI Psych Reports no additional complaints Endo Denies polydipsia, Denies polyuria and Denies palpitations Cole/Lymph Denies easy bruising Aller/Immun Denies seasonal rhinorrhea and Denies wheezing Physical exam (Primary Care) Vital Signs: Last Vital Signs Temp 97.7 F 01/14/25 10:48 Pulse 75 01/14/25 10:48 Resp 15 01/14/25 10:48 BP 136/70 01/14/25 10:48 Pulse Ox 99 01/14/25 10:48 Oxygen Delivery Method Room Air 01/14/25 10:48 BMI result Body Mass Index 33.0 Tobacco/Smoking Status: Tobacco use Status Tobacco use date assessed 01/14/25 01/14/25 10:52 Patient Tobacco Use Status Never used Tobacco 01/14/25 10:45 e-Cigarette/Vaping Use Never Used 01/14/25 10:45 PHQ-9: PHQ-9 Score PHQ-9: Total score 4 01/14/25 11:25 Depression Screening Interpretation: Negative Thrive Assessment: Date of Thrive Assessment Date Thrive assessed 01/06/25 01/14/25 10:45 Currently or been in a relationship where the following occur: No concerns reported Const General: no acute distress, alert, awake and other (Has been accompanying patient) Orientation/consciousness: patient oriented x3 [facility] General nose exam: Normal external nose present Face and sinus: Yes face symmetric Mouth: Normal oral and palatal mucosa present, tongue normal, oropharynx normal and moist mucous membranes Eyes General: appearance normal, both eyes and all related structures Neck Neck: Yes full ROM, Yes no lymphadenopathy and Yes supple Resp Effort & Inspection: normal respiratory effort and able to speak in complete sentences Auscultation: clear to auscultation bilaterally Cardio Rate: regular rate Rhythm: regular rhythm Heart sounds: S1 normal heart sound present and S2 normal heart sound present GI Inspection: Yes normal to inspection Palpation (GI): Soft to palpation, nontender and no masses Auscultation: normal bowel sounds General: Yes no CVA tenderness Back/Spine/Pelvis Back: no CVA tenderness and No back tenderness Neuro General: patient oriented x3, moves all extremities, Normal light touch and pain sensation and no focal motor deficits Cognition (Neuro): normal cognition Extrem Other: Decreased range of motion of right shoulder joint especially on abduction due to pain General: Yes no joint enlargement and Yes no pedal edema Psych Appearance: grossly normal and well kempt Mental Status: mental status grossly normal Speech and movement: Normal speech and movement present Affect: normal affect Attitude: cooperative Thought process: Normal thought process present Thought content: Normal thought content present Results Reviewed Results Reviewed: Name: Day Purvis Age/Sex: 69/F : 1955 Unit#: [id number] Attend Dr: Dean Manuel MD Re01/12/25 Status: DEP ER Location: .ED Disch: SPEC : [id number] OSVALDO: 01/12/25 STATUS: COMP REQ : [id number] RECD: 01/12/[address]: Trinidad Shafer DO COMP: 01/12/25 ENTERED: 01/12/[address]: ORDERED: CBC Auto Diff Test Result Flag Reference WBC 4.3 L 4.8-10.8 X10*3/uL RBC 3.88 L 4.20-5.50 X10*6/uL HGB 12.5 12.0-16.0 g/dl HCT 36.0 L 37.0-47.0 % MCV 92.8 80.0-98.0 fL MCH 32.2 27.0-33.0 pg MCHC 34.7 31.0-35.0 g/dl RDW 13.4 11.0-16.0 % PLT 151 L 160-400 X10*3/uL MPV 9.4 9.4-12.3 fL Neut Pct Auto 43.0 L 45-73 % ImGran Pct Auto 0.2 0.0-0.4 % Lymp Pct Auto 43.2 H 20-40 % [place] Pct Auto 11.1 H 2-11 % Eos Pct Auto 1.6 0-4 % Baso Pct Auto 0.9 0-2 % NRBC Pct Auto 0.0 0.0-0.2 /100WBC ANC Neut Abs # 1.9 L 2.0-8.3 x10*3/uL ImGran Abs Auto 0.01 0.00-0.03 X10*3/uL Lymph Abs Auto 1.9 1.2-4.9 X10*3/uL [place] Abs Auto 0.5 0.1-1.2 X10*3/uL Eos Abs Auto 0.1 0.0-0.4 X10*3/uL Baso Abs Auto 0.0 0.0-0.2 X10*3/uL NRBC Abs Auto 0.000 0.0-0.012 X10*3/uL Name: Day Purvis Age/Sex: 69/F : 1955 Unit#: [id number] Attend Dr: Dean Manuel MD Re01/12/25 Status: DEP ER Location: [facility] Disch: SPEC : [id number] OSVALDO: 01/12/25 STATUS: COMP REQ : [id number] RECD: 01/12/25-[address]: Trinidad Shafer DO COMP: 01/12/25-1336 ENTERED: 01/12/25-[address]: ORDERED: CMP, MG Test Result Flag Reference Sodium 142 135-145 mmol/L Potassium 3.9 3.3-5.1 mmol/L CL 113 H 96-108 mmol/L CO2 23 22-29 mmol/L Gap 10 L 12-20 BUN 12 9-16 mg/dL Creat 0.66 0.5-1.4 mg/dL Estimated CrCl 75.9 Provided height and weight: 152.4 cm, 77.111 kg. eGFR (calculated from the MDRD study equation) and eCrCl (calculated from the Cockcroft-Gault equation) are based on different parameters and may not yield comparable results. If eCrCl result is absurd, please check patient's height/weight. eGFR > 60 Chronic Kidney Disease: Estimated GFR < 60 mL/min/1.73m2 Severe Kidney Disease: Estimated GFR < 15 mL/min/1.73m2 Glucose, Random 98 60-115 mg/dL CA 8.5 8.4-10.2 mg/dL Magnesium 2.0 1.6-2.6 mg/dL Total Bili 0.3 0.0-1.0 mg/dL AST (GOT) 23 5-31 U/L ALT (GPT) 14 0-31 U/L Protein, Total 6.8 6.5-8.0 g/dL Alb 3.8 3.5-5.0 g/dL Alk Phos 83 39-117 U/L Coding Level of Care Code Est Pt Level 4 (92900) Complex EM visit Add On G2211 Diagnoses Preoperative examination Z01.818 Intermittent lightheadedness R42 Vitamin D deficiency E55.9 Fibromyalgia M79.7 Recurrent kidney stones N20.0 Gastroesophageal reflux disease K21.9 Partial tear of rotator cuff M75.110 Trigeminal neuralgia of right side of face G50.0 Additional Codes JOSÉ MANUEL-7 Assessment Billing - JOSÉ MANUEL-7 Assessment Tool: JOSÉ MANUEL-7 Assessment 67456 ([id number]) PHQ-9 - 33578 - PHQ-9 Billing: Yes ([id number]) Assessment & Plan Assessment & Plan (1) Preoperative examination: Code(s): Z01.818 - Encounter for other preprocedural examination Plan: 82 year old here for pre-op clearance for reversal right total shoulder arthroplasty, scheduled for 01/20/[address] Ballesteros. She has no known history of coronary artery disease or pulmonary disease. Preoperative examination was unremarkable except for gait unsteadiness . EKG shows normal sinus rhythm with no acute ST-T changes .Recent labs are within normal limits, except for elevated triglycerides and low vitamin-D level. Patient with a low cardiac risk index for proposed surgery (2) Intermittent lightheadedness: Code(s): R42 - Dizziness and giddiness Category: Medical Plan: Patient already evaluated for benign positional vertigo at vestibular rehab but it came back negative, seen by Cardiology who states that symptom is not cardiac in etiology. Intermittent episodes of lightheadedness most likely due to increase in dose of her pregabalin from 150-175 mg twice a day prescribed by her neurologist. Patient advised to decrease her dose of pregabalin to 150 mg in the morning with breakfast and then take the 175 mg dose at night, consult with her neurologist at [facility], Dr. London for further evaluation management. May take meclizine 12.5 mg twice a day as needed for dizziness (3) Vitamin D deficiency: Code(s): E55.9 - Vitamin D deficiency, unspecified Category: Medical Plan: Continue taking cholecalciferol 75 mcg taken once a day (4) Fibromyalgia: Code(s): M79.7 - Fibromyalgia Category: Medical Plan: Stressed importance of adhering to healthy eating habits and getting regular exercise. May take the acetaminophen ER 650 mg 1 tablet every 8 hours as needed for pain, may massaged diclofenac sodium 1% gel to affected areas as both joints, knees and elbows as needed for pain no more than 3 times a day (5) Recurrent kidney stones: Code(s): N20.0 - Calculus of kidney Category: Medical Plan: Currently followed by Urology, [facility] (6) Gastroesophageal reflux disease: Code(s): K21.9 - Gastro-esophageal reflux disease without esophagitis Category: Medical Plan: Continued on omeprazole 40 mg once a day (7) Partial tear of rotator cuff: Code(s): M75.110 - Incomplete rotator cuff tear or rupture of unspecified shoulder, not specified as traumatic Category: Medical Plan: Currently being seen by [facility] (8) Trigeminal neuralgia of right side of face: Code(s): G50.0 - Trigeminal neuralgia Category: Medical Plan: Currently followed by Dr. London at [facility] neurology on carbamazepine and pregabalin, advised to decrease morning dose to 150 mg and continue taking 175 mg of pregabalin at bedtime. Stressed importance of following up with her [facility] neurologist
[2025-01-14 10:48] VITALS: BP 136/70; PULSE 75; RESP 15; TEMP 36.5; O2SAT 99; BMI 33.0
== END 2025-01-14 11:35 | disposition home or self-care (01) ==
LOC: HO.HMCC 09:41
PROVIDERS: PCP Internal Medicine; Visit Provider Internal Medicine
DX: Z01.818 Encounter for other preprocedural examination (principal); R42 Dizziness and giddiness; E55.9 Vitamin D deficiency, unspecified; M79.7 Fibromyalgia; N20.0 Calculus of kidney; K21.9 Gastro-esophageal reflux disease without esophagitis; M75.110 Incomplete rotator cuff tear or rupture of unspecified shoulder, not specified as traumatic; G50.0 Trigeminal neuralgia

== ENCOUNTER → 2025-01-14 09:40 | Outpatient (BNVA) | payer MEDICARE, SELFPAY | PROVIDERS: PCP Internal Medicine; Visit Provider Internal Medicine | DX: Z01.818 Encounter for other preprocedural examination (principal); R42 Dizziness and giddiness; E55.9 Vitamin D deficiency, unspecified; M79.7 Fibromyalgia; N20.0 Calculus of kidney; K21.9 Gastro-esophageal reflux disease without esophagitis; M75.110 Incomplete rotator cuff tear or rupture of unspecified shoulder, not specified as traumatic; G50.0 Trigeminal neuralgia | CPT/HCPCS: 96127; 99212 ==

== ENCOUNTER 2025-03-19 13:08 | Outpatient (AMB) | payer MEDICARE, SELFPAY ==
[2025-03-19 13:56] VITALS: BP 130/68; PULSE 88; O2SAT 96; BMI 33.2
--- NOTE | 2025-03-19 13:56 | A.OFFVIS_ITS ---
Vital Signs 03/19/25 13:56 Height 5 ft Weight 169 lb 15.622 oz BMI 33.2 BP 130/68 Blood Pressure Location Lt brachial Position Sitting Pulse 88 Pulse Source Pulse Oximeter Pulse Oximetry (%) 96 Oxygen Delivery Method Room Air Intake Visit Reasons: RA Intake Note: Patient presents for RA and lab review follow up today. Nanotechnology Engineering Technologist Name: [id number] Michael Allergies hydroxychloroquine Adverse Reaction (Intermediate, Verified 01/14/25 16:57) Questionable retinopathy Medication List - Last Reconciled 03/19/25 by Katie Jones MD acetaminophen ER 650 mg PO Q8H PRN adalimumab (Humira(CF)) 40 mg subcut WE@0900 carbamazepine 100 mg PO BID cholecalciferol (vitamin D3) 75 mcg PO DAILY diclofenac sodium 1% 1 ea topical DAILY PRN meclizine (Dramamine Less Drowsy) 25 mg PO TID PRN omeprazole 40 mg PO DAILY@0630 pregabalin 150 mg PO BID pregabalin 25 mg PO BID HPI Comments Details: Patient is a 69-year-old female with obstructive sleep apnea, portal hypertension complicated by splenic artery aneurysm, 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 Interval History: Patient last seen 12/11/2024 with me. At that time she had stopped her Plaquenil due to eye changes seen by her legal secretary receptionist. She was determined to be in a flare of her disease and her Humira frequency was increased from every 2 weeks to every week. She was also given a taper of prednisone Today, Patient complaining of bilateral knee pain. States that she injured her knee in the bathtub a couple weeks ago and feels like something is dislodged. She follow up with her medicare insurance specialist who had x-rays done with said there was nothing wrong but she continues to feel pain and they recommended topical diclofenac 3 times a day however she is continuing to have pain. She also is complaining of pain in her lower back and in her neck for which she is followed up with ortho spine and they are recommending injections. She is still recovering from her right shoulder surgery which she had done in January and so they said that she would have to heal from that before trying something else. Rheumatologic History: Seronegative rheumatoid arthritis Seronegative RA diagnosed in [place]. Evaluated at [facility] in 2007 - has been on Plaquenil 200 mg BID and Enbrel weekly since then. MTX dates unknown. ENbrel DC 05/30 ineffective Humira 05/30 Plaquenil stopped 10/2024 due to eye changes Current Rheumatology Medication(s): Humira 40 mg sc every week PFS Medical History Intermittent lightheadedness Intertrigo Vitamin D deficiency Recurrent kidney stones Sleep apnea Splenic artery aneurysm Shoulder pain, right Trigeminal neuralgia of right side of face Seronegative rheumatoid arthritis Loose right total knee arthroplasty Gastroesophageal reflux disease Hiatal hernia Tailor's bunion of left foot Fibromyalgia Osteoarthritis Impaired fasting glucose Insomnia Cervical spondylosis without myelopathy Autoimmune urticaria Morbid obesity due to excess calories Surgical History S/P hip replacement History of esophagogastroduodenoscopy (EGD) History of colonoscopy History of arthroscopy of right shoulder History of laparoscopic cholecystectomy Status post laser lithotripsy of ureteral calculus History of bunionectomy of left great toe History of cranioplasty History of shoulder surgery Status post right knee replacement Family History Father Emphysema of lung Mother Hypertension Maternal Grandmother No problems noted. Maternal Grandfather No problems noted. Paternal Grandmother No problems noted. Paternal Grandfather No problems noted. Maternal Aunt Diabetes Sister No problems noted. Son No problems noted. Daughter No problems noted. Social History Household Members: Spouse and Family Household Members Other:: mother,daughter Housing: House Are you a primary medical care manager to a significant other at home: No Do you presently have visiting nurse or other home services: No Alcohol intake: never Patient Tobacco Use Status: Never used Tobacco e-Cigarette/Vaping Use: Never Used service: No Current occupational status: unemployed Current occupation: rt handed Cognitive needs: No Hearing needs: No Vision needs: No Review of Systems Const Details: Review of Systems Constitutional: Denies fever, chills, weight loss ENT: Denies vision changes, eye pain or eye redness, dental caries, dry mouth GI: Denies nausea, vomiting, diarrhea, abdominal pain, change in BM Pulm: Denies SOB, MOSS, hemoptysis, wheezing Cards: Denies chest pain, palpitations Skin: Denies Raynaud's, rash, nail changes, photosensitivity, HOG WORKER: Denies headaches, weakness, paresthesias, recurrent falls MSK: as per HPI All other systems reviewed and are unremarkable except noted above Physical Exam Vital Signs: Last Vital Signs Pulse 88 03/19/25 13:56 BP 130/68 03/19/25 13:56 Pulse Ox 96 03/19/25 13:56 Oxygen Delivery Method Room Air 03/19/25 13:56 BMI result Body Mass Index 33.2 Vital signs reviewed Physical Examination CONSTITUITIONAL Patient alert and cooperative. Well appearing and in no apparent painful distress HEENT Conjunctiva and sclera clear. ?Pupils equal round and reactive to light. ?No lymphadenopathy. ? CHEST/RESPIRATORY SYSTEM Normal respiratory effort and able to speak in complete sentences. ?Clear to auscultation bilaterally. ?No crackles, rales, rhonchi, wheezes heard. CARDIAC SYSTEM Regular rate and rhythm. ?S1 and S2 heard no murmurs. ?Radial pulses intact bilaterally MSK Hands: ?Able to make a fist. No tenderness to palpation of the MCPs or PIPs. [place] nodes noted throughout the her bilateral hands and tenderness to palpation of these nodes. Wrists: ?Full range of motion at the wrists. No tenderness to palpation of the wrists bilaterally. Elbows: Full range of motion without pain. No tenderness, weakness, swelling, increased warmth or erythema. Shoulders: Right shoulder in a sling and was not examined. Left shoulder with decreased active range of motion to about 90 degrees able to do full passive range of motion but had pain at the extreme range of motion. Knees: ?Full range of motion. ?No tenderness, swelling, increased warmth or erythema. Surgical scars noted over the bilateral knees. Tenderness to palpation of the lateral aspect of the left knee. Ankles: Full range of motion. ?No tenderness, swelling, increased warmth or erythema.? Feet: ?Negative squeeze test. ?No tenderness to palpation or swelling of the MTPs. Tender points:?No tenderness to palpation of the bilateral trapezius, supraspinatus, greater trochanters, anterior costochondral junctions, bilateral gluteal areas, bilateral suboccipital muscle insertions SKIN Skin intact without rashes. Results Reviewed Results Reviewed: Laboratory Tests 10/14/24 01/02/25 01/12/25 09:16 11:39 11:50 WBC 4.3 L RBC 3.88 L Hgb 12.5 Hct 36.0 L Plt Count 151 L ESR 14 Sodium 142 Potassium 3.9 Chloride 113 H Carbon Dioxide 23 BUN 12 Creatinine 0.66 AST 23 ALT 14 Alkaline Phosphatase 83 C-Reactive Protein < 0.10 25-OH Vitamin D Total 16.3 L Infectious serologies 05/18/23 05/23/23 15:11 15:59 Hepatitis A IgM Ab Nonreactive Hep Bs Antigen Negative Hep Bs Antibody NONREACTIVE Hep B Core Total Ab Nonreactive Hepatitis C Ab (EIA) Nonreactive TB Test (T-Spot) Com Negative DEXA 04/2024 FINDINGS: LEFT FEMUR, NECK: Current: BMD 0.998 g/cm2, Z-score 1.0, T-score -0.3, normal. Prior: BMD 0.959 g/cm2. Baseline: BMD 0.993 g/cm2. LEFT FEMUR, TOTAL: Current: BMD 1.153 g/cm2, Z-score 2.2, T-score 1.1, normal, 1.2% increase from previous, 3.0% decrease from baseline (<5% change is not significant). Prior: BMD 1.139 g/cm2. Baseline: BMD 1.189 g/cm2. AP SPINE L1-L4 (excluding L3): The data of L1-L4 has been changed to exclude the L3 vertebral body, because degenerative sclerosis at this level may cause overestimation of lumbar spine density. Current: BMD 1.234 g/cm2, Z-score 1.8, T-score 0.5, normal, 2.2% decrease from previous, 10.1% decrease from baseline (<5% change is not significant). Prior: BMD 1.262 g/cm2. Baseline: BMD 1.372 g/cm2. Assessment & Plan Assessment & Plan (1) Seronegative rheumatoid arthritis: Comment: Seronegative RA diagnosed in [place]. Evaluated at [facility] in 2007 - has been on Plaquenil 200 mg BID and Enbrel weekly since then. MTX dates unknown. ENbrel DC 05/30 ineffective Humira 05/30. increased to weekly 10/2024 Plaquenil stopped 10/2024 due to eye changes Code(s): M06.00 - Rheumatoid arthritis without rheumatoid factor, unspecified site Category: Medical Plan: #Rheumatoid arthritis Patient is a 69 y.o. female with seronegative RA. On Humira monotherapy every week. Exam with no evidence of synovitis. Joint pain is likely secondary to her degenerative joint disease. Had a long discussion with patient here in about this including the degenerative joint disease in her back and spine. She does have spinal follow up and is starting physical therapy for her shoulders. Plan - Humira fequency to 40mg SC every week - RTC 4 months - Labs prior to visit: CBC, CMP, ESR, CRP, Hepatitis panel and T spot (2) Encounter for monitoring of adalimumab therapy: Code(s): Z51.81 - Encounter for therapeutic drug level monitoring; Z79.620 - [facility] (current) use of immunosuppressive biologic Plan: #Long-term Use of TNF Inhibitors: Humira Discussed with the patient the benefits and risks of TNF inhibitors for the m anagement of the rheumatic condition Benefits include reduce pain, maintenance of remission and reduction of flares as well as ?progression of the disease Risks include injection sites/infusion reactions, serious infections (such as bacterial infections, opportunistic infections), malignancy, delaminating syndromes, autoimmune phenomena, CHF exacerbations, palmar plantar psoriasis and cytopenias Recommended rotating injection sites, and holding medication during and for up to 1 week after resolution of a febrile illness or open skin wound Plan I spent 32 minutes reviewing the record and labs, taking a history, examining the patient, discussing the treatment plan and documenting in the medical record Coding Level of Care Code Est Pt Level 4 (26260) Complex EM visit Add On G2211 Diagnoses Seronegative rheumatoid arthritis M06.00 Encounter for monitoring of adalimumab therapy Z51.81; Z79.620
--- OUTSIDE RECORDS SUMMARY | 2025-03-19 15:19 | XMS_ITS | Clinical Summary ---
Author Organization [facility] Address [address] [place] [address] Care Team Providers Care Pipe Covering Molder Name Role Phone Unavailable Primary Care Provider Unavailabl e Allergies No known active allergies Medications baclofen (LIORESAL) 10 MG tablet Take 10 mg by mouth 3 (three) times a day. 12/21/2020 Active Enbrel SureClick 50 MG/ML auto-injector Inject 50 mg under the skin every 7 days. Sunday01/18/2021 Active hydroxychloroqu ine (PLAQUENIL) 200 MG tablet Take 200 mg [...] Date Smoking Tobacco: Never Smokeless Tobacco: Never Comments Unknown Sex and Gender Information Value Date Recorded Sex Assigned at Not on file Legal Sex Female 6:35 PM EST Gender Identity Not on file Sexual Orientation [...] es 65 and older) 2022 Influenza Vaccine 05/08/2025 Hepatitis B Vaccines Aged Out No long er eligible based on patient's age to complete this topic Insurance [facility] on file MEDICARE PART A & B Advance Directives * Full Code (Latest Code Status on File) Date Activated Date Inactivated Comments 02/13/2021 6:20 PM Question Answer Comments Decision Thoroughly Discussed with: Patient
== END 2025-03-19 14:38 | disposition home or self-care (01) ==
LOC: HO.RHE 13:09
PROVIDERS: PCP Internal Medicine; Visit Provider Student in an Organized Health Care Education/Training Program
DX: M06.00 Rheumatoid arthritis without rheumatoid factor, unspecified site (principal); Z51.81 Encounter for therapeutic drug level monitoring; Z79.620 Long term (current) use of immunosuppressive biologic
CPT/HCPCS: 99214; G2211

== ENCOUNTER → 2025-03-19 13:08 | Outpatient (BNVA) | payer OTHER, SELFPAY | PROVIDERS: PCP Internal Medicine; Visit Provider Student in an Organized Health Care Education/Training Program | DX: M25.562 Pain in left knee (principal); M25.561 Pain in right knee; M06.00 Rheumatoid arthritis without rheumatoid factor, unspecified site; Z51.81 Encounter for therapeutic drug level monitoring; Z79.620 Long term (current) use of immunosuppressive biologic | CPT/HCPCS: 99212 ==

== ENCOUNTER 2025-04-29 11:00 | Outpatient (RCR) | payer OTHER, SELFPAY | END 2025-05-25 13:02 | disposition home or self-care (01) | LOC: HO.PT 11:00 | PROVIDERS: PCP Internal Medicine; Visit Provider Orthopaedic Surgery | DX: Z47.1 Aftercare following joint replacement surgery (principal); Z96.611 Presence of right artificial shoulder joint | CPT/HCPCS: 97110; 97112; 97140; 97162 ==

== ENCOUNTER 2025-05-18 11:15 | Outpatient (REF) | payer OTHER, SELFPAY ==
[2025-05-18 11:31] LABS: MANUAL DIFF FLAG NO
[2025-05-18 11:45] LABS: Hematocrit 36.0 % (37.0-47.0); Hemoglobin 12.3 g/dl (12.0-16.0); Imm Gran Abs Auto 0.02 X10*3/uL (0.00-0.03); Imm Gran Pct Auto 0.5 % (0.0-0.4); Lymphocytes Absolute Auto 1.8 X10*3/uL (1.2-4.9); Mean Corpuscular HGB Conc 34.2 g/dl (31.0-35.0); Mean Corpuscular Hemoglobin 32.1 pg (27.0-33.0); Mean Corpuscular Volume 94.0 fL (80.0-98.0); NRBC Abs Auto 0.000 X10*3/uL (0.0-0.012); NRBC Pct Auto 0.0 /100WBC (0.0-0.2); Platelet Count 156 X10*3/uL (160-400); Red Blood Count 3.83 X10*6/uL (4.20-5.50); White Blood Count 3.7 X10*3/uL (4.8-10.8)
--- OUTSIDE RECORDS SUMMARY | 2025-05-18 11:57 | XMS_ITS | Clinical Summary ---
Author Organization [facility] Address [address] [place] [address] Care Team Providers Care Grazing Examiner Name Role Phone Unavailable Primary Care Provider [...] 100 02/14/2021 3:51 PM EDT Temperature 37.2 C (99 F) 02/14/2021 3:51 PM EDT Respiratory Rate 18 [...] patient's age to complete this topic Insurance [facility] on file MEDICARE PART A & B Advance Directives * Full Code (Latest Code Status on File) Date Activated Date Inactivated Comments 02/13/2021 6:20 PM Question Answer Comments Decision Thoroughly Discussed with: Patient
--- OUTSIDE RECORDS SUMMARY | 2025-05-18 11:57 | XMS_ITS | Clinical Summary ---
Author Organization [facility] Address [address] [place] [address] Care Team Providers Care Freight Car Cleaner [employer] Name Role Phone Unavailable Primary Care Provider [...] 1 - PCV) 2022 Influenza Vaccine (#1) 2025 RSV Adult > 60+ Yrs or Pregn ant (1 - 1-dose 75+ series) 2032 Hepatitis B Vaccines Aged Out No long er eligible based on patient's age to complete this topic RSV Ped < 20 months Aged Out No longe r eligible based on patient's age to complete this topic
[2025-05-18 12:24] LABS: Alanine Aminotransferase 19 U/L (0-31); Albumin Level 3.9 g/dL (3.5-5.0); Alkaline Phosphatase 91 U/L (39-117); Anion Gap 12 (12-20); Aspartate Amino Transferase 24 U/L (5-31); Blood Urea Nitrogen 10 mg/dL (9-16); Calcium 8.4 mg/dL (8.4-10.2); Carbon Dioxide 30 mmol/L (22-29); Chloride 111 mmol/L (96-108); Estimated Glomerular Filt Rate > 60; Potassium 4.0 mmol/L (3.3-5.1); Sodium 149 mmol/L (135-145); Total Protein 6.8 g/dL (6.5-8.0)
[2025-05-18 12:40] LABS: HBS Num1 1.10 mIU/mL (0-7.99); HBc Num1 0.07 S/CO (0.00-0.79); HBsAGNum1 0.51 S/CO (0.00-0.99); HIV Num 1 0.05 S/CO (0.00-0.99); Hepatitis A Antibody IgM 0.27 Index (0-0.79); Hepatitis B Surface Antigen Negative (Negative); ~HepC Num1 0.09 S/CO (0.00-0.79); ~Hepatitis A Antibody IgM Nonreactive (Nonreactive); ~Hepatitis B Surface Antibody NONREACTIVE (Nonreactive); ~Hepatitis C Antibody Nonreactive (Nonreactive)
[2025-05-21 10:08] LABS: TS Negative Control Passed; TS Panel A 0; TS Panel B 1; TS Positive Control Passed; TSpotTB Negative (Negative)
== END 2025-05-18 11:16 | disposition home or self-care (01) ==
LOC: HO.LAB 11:15
PROVIDERS: PCP Internal Medicine; Visit Provider Student in an Organized Health Care Education/Training Program
DX: Z11.1 Encounter for screening for respiratory tuberculosis (principal); Z11.59 Encounter for screening for other viral diseases; Z11.4 Encounter for screening for human immunodeficiency virus [HIV]; M06.00 Rheumatoid arthritis without rheumatoid factor, unspecified site
CPT/HCPCS: 36415; 80053; 85025; 85652; 86140; 86481; 86704; 86706; 86709; 86803; 87340; 87389

== ENCOUNTER 2025-06-29 11:34 | Outpatient (REF) | payer OTHER, SELFPAY ==
--- NOTE | ~2025-06-29 | US_ITS ---
EXAMINATION: US RETROPERITONEAL LIMITED (RENAL ONLY) CLINICAL INFORMATION: Calculus of kidney. COMPARISON: 06/30/2024 TECHNIQUE: Real-time imaging of the kidneys. FINDINGS: RIGHT KIDNEY: 12.8 x 5.9 x 4.7 cm (SAG x AP x TRV). The kidney is normal in size, contour, and echogenicity. Renal cortical thickness is normal. No calculi or focal parenchymal lesions. No hydronephrosis. LEFT KIDNEY: 11.7 x 5.7 x 4.1 cm (SAG x AP x TRV). The kidney is normal in size, contour, and echogenicity. Renal cortical thickness is normal. No suspicious focal parenchymal lesions. No hydronephrosis. There is a probable mid pole nonobstructing calculus measuring 7 x 4 x 7 mm. US/US renal BI IMPRESSION: 1. Nonobstructing left renal calculus measuring 7 mm. 2. Otherwise normal kidneys. Electronically signed by: Markos Dial MD 06/29/2025 12:09 PM EDT
--- OUTSIDE RECORDS SUMMARY | 2025-06-29 14:15 | XMS_ITS | Clinical Summary ---
Author Organization [facility] Address [address] [place] [address] Care Team Providers Care Care Director Name Role Phone Unavailable Primary Care Provider [...] Health Maintenance Due Date Last Done Comments Advance Care Planning 1955 Hepatitis C Virus Screening 1955 COVID-19 Vaccine [...] patient's age to complete this topic Insurance [facility] on file MEDICARE PART A & B Advance Directives * Full Code (Latest Code Status on File) Date Activated Date Inactivated Comments 02/13/2021 6:20 PM Question Answer Comments Decision Thoroughly Discussed with: Patient
--- OUTSIDE RECORDS SUMMARY | 2025-06-29 14:15 | XMS_ITS | Clinical Summary ---
Author Organization [facility] Address [address] [place] [address] Care Team Providers Care Technical Operations Manager Name Role Phone Unavailable Primary Care [...]
== END 2025-06-29 11:35 | disposition home or self-care (01) ==
LOC: HO.US 11:34
PROVIDERS: PCP Internal Medicine; Visit Provider Nurse Practitioner Family
DX: N20.0 Calculus of kidney (principal)
CPT/HCPCS: 76775

== ENCOUNTER → 2025-06-29 11:36 | Outpatient (BNV) | payer OTHER, SELFPAY | PROVIDERS: PCP Internal Medicine; Visit Provider Radiology Diagnostic Radiology | DX: N20.0 Calculus of kidney (principal) | CPT/HCPCS: 76775 ==

== ENCOUNTER 2025-07-06 09:20 | Outpatient (AMB) | payer MEDICARE, SELFPAY ==
--- NOTE | 2025-07-06 09:21 | A.OFFVIS_ITS ---
Intake Visit Reasons: 1YR US Intake Note: patient presents today for: 1yr US urology medications: none blood thinners: none US done: 06/29/25 Manager Architectural Required: Yes Manager Architectural Services: Manager Architectural Present Manager Architectural Name: Leandro [id number] Accompanied by: Self / Same As Patient Allergies hydroxychloroquine Adverse Reaction (Intermediate, Verified 07/06/25 09:48) Questionable retinopathy Medication List - Last Reconciled 07/06/25 by TIAN Khan acetaminophen ER 650 mg PO Q8H PRN adalimumab (Humira(CF)) 40 mg (0.4 mL) subcut WE@0900 carbamazepine 100 mg PO BID cholecalciferol (vitamin D3) 75 mcg PO DAILY diclofenac sodium 1% 1 ea topical DAILY PRN meclizine (Dramamine Less Drowsy) 25 mg PO TID PRN omeprazole 40 mg PO DAILY@0630 pregabalin 150 mg PO BID pregabalin 25 mg PO BID HPI Comments Details: Day is a pleasant 69 year old Swiss speaking female patient Dr. Rouse. She has a past medical history of nephrolithiasis, sleep apnea, splenic artery aneurysm, trigeminal neuralgia, rheumatoid arthritis, GERD, hiatal hernia, fibromyalgia, osteoarthritis, insomnia, autoimmune urticaria, obesity, and cervical spondylosis. She presents to the office today for follow-up of her longstanding history of nephrolithiasis. Recent renal imaging results reviewed with the patient today. Renal ultrasound 07/02 bilateral kidneys are normal in size, contour, and echogenicity. No hydronephrosis noted bilaterally. There is a probable mid pole obstructing calculus measuring 7 x 4 x 7 mm in the left kidney per radiology report. She discusses she is unable to determine flank pain from chronic back pain she experiences. On exam today no CVA tenderness noted bilaterally. We did discuss further treatment options to include surveillance monitoring verses obtaining KUB for further assessment evaluation. She also discusses her longstanding history of fibromyalgia and arthritis in typically experiences generalized body pain. She currently denies any bothersome urinary issues or concerns. In office urinalysis results reviewed with the patient today. 2+ leukocytes. However she denies any UTI like symptoms at this time. When asked she denies urinary urgency, urinary frequency, incontinence, nocturia, hematuria, dysuria, foul smelling urine, changes to urinary stream, flank pain, fever, and or chills. She is happy with her current voiding parameters. She reports to be drinking plenty of water daily. She otherwise offers no other issues or concerns at this time. [facility] Medical History Intermittent lightheadedness Intertrigo Vitamin D deficiency Recurrent kidney stones Sleep apnea Splenic artery aneurysm Shoulder pain, right Trigeminal neuralgia of right side of face Seronegative rheumatoid arthritis Loose right total knee arthroplasty Gastroesophageal reflux disease Hiatal hernia Tailor's bunion of left foot Fibromyalgia Osteoarthritis Impaired fasting glucose Insomnia Cervical spondylosis without myelopathy Autoimmune urticaria Morbid obesity due to excess calories Surgical History S/P hip replacement History of esophagogastroduodenoscopy (EGD) History of colonoscopy History of arthroscopy of right shoulder History of laparoscopic cholecystectomy Status post laser lithotripsy of ureteral calculus History of bunionectomy of left great toe History of cranioplasty History of shoulder surgery Status post right knee replacement Family History Father Emphysema of lung Mother Hypertension Maternal Grandmother No problems noted. Maternal Grandfather No problems noted. Paternal Grandmother No problems noted. Paternal Grandfather No problems noted. Maternal Aunt Diabetes Sister No problems noted. Son No problems noted. Daughter No problems noted. Social History Household Members: Spouse and Family Household Members Other:: mother,daughter Housing: House Are you a primary college and career counselor to a significant other at home: No Do you presently have visiting nurse or other home services: No Alcohol intake: never Patient Tobacco Use Status: Never used Tobacco e-Cigarette/Vaping Use: Never Used service: No Current occupational status: unemployed Current occupation: rt handed Cognitive needs: No Hearing needs: No Vision needs: No Review of Systems Const Reports as per HPI Eyes Reports no additional complaints ENT Reports no additional complaints Card Reports as per HPI Resp Reports no additional complaints GI Reports as per HPI Reports as per HPI Musc Reports as per HPI Neuro Reports as per HPI Psych Reports no additional complaints Physical Exam Const General: cooperative, healthy appearing, comfortable, no acute distress, well developed, alert and awake Orientation/consciousness: patient oriented x3 Limitations: language barrier HEENT Head: Yes normal to inspection, Yes normocephalic and Yes atraumatic Eyes General: appearance normal, both eyes and all related structures Neck Neck: Yes normal visual inspection and Yes trachea midline Chest Chest palpation & inspection: normal inspection of the chest Resp Effort & Inspection: normal respiratory effort and able to speak in complete sentences Cardio Rhythm: regular rhythm GI Inspection: Yes normal to inspection General: Yes no CVA tenderness Back/Spine/Pelvis Back: no CVA tenderness Neuro General: patient oriented x3 Psych Appearance: grossly normal Mental Status: mental status grossly normal Speech and movement: Normal speech and movement present and Clear speech present Affect: normal affect Attitude: cooperative Thought process: Normal thought process present Thought content: Normal thought content present Insight: Fair insight present (Psych) Judgement: Fair judgement present (Psych) Results AMB Urinalysis, Automated UA Leukoctes 125 Jocelyn/uL Last Edit by KRAEEM Sommer on 07/06/25 09:36 UA Nitrite Last Edit by KAREEM Sommer on 07/06/25 09:36 UA Urobilinogen 0.2 mg/dL Last Edit by KAREEM Sommer on 07/06/25 09:3 6 UA Protein 0 mg/dL Last Edit by KAREEM Sommer on 07/06/25 09:36 UA pH 6.0 Last Edit by KAREEM Sommer on 07/06/25 09:36 UA Blood 0 Rm/uL Last Edit by KAREEM Sommer on 07/06/25 09:36 UA Specific [place] 1.025 Last Edit by KAREEM Sommer on 07/06/25 09: 36 UA Ketone Last Edit by KAREEM Sommer on 07/06/25 09:36 UA Bilirubin 0 mg/dL Last Edit by KAREEM Sommer on 07/06/25 09:36 UA Glucose 0 mg/dL Last Edit by KAREEM Sommer on 07/06/25 09:36 Results Reviewed Results Reviewed: Laboratory Last Values Urine pH (Auto) 6.0 07/06/25 09:36 Specific [place] (Auto) 1.025 07/06/25 09:36 Urine Protein (Auto) 0 mg/dL 07/06/25 09:36 Glucose (UA)(Auto) 0 mg/dL 07/06/25 09:36 Urine Blood (Auto) 0 Rm/uL 07/06/25 09:36 Urine Bilirubin (Auto) 0 mg/dL 07/06/25 09:36 Urine Urobilinogen (Auto) 0.2 mg/dL 07/06/25 09:36 Leukocyte Esterase (Auto) 125 Jocelyn/uL 07/06/25 09:36 Date of Service: 06/29/25 Procedure(s): US renal BI FINDINGS: RIGHT KIDNEY: 12.8 x 5.9 x 4.7 cm (SAG x AP x TRV). The kidney is normal in size, contour, and echogenicity. Renal cortical thickness is normal. No calculi or focal parenchymal lesions. No hydronephrosis. LEFT KIDNEY: 11.7 x 5.7 x 4.1 cm (SAG x AP x TRV). The kidney is normal in size, contour, and echogenicity. Renal cortical thickness is normal. No suspicious focal parenchymal lesions. No hydronephrosis. There is a probable mid pole nonobstructing calculus measuring 7 x 4 x 7 mm. IMPRESSION: 1. Nonobstructing left renal calculus measuring 7 mm. 2. Otherwise normal kidneys. Assessment & Plan Assessment & Plan (1) Recurrent kidney stones: Code(s): N20.0 - Calculus of kidney Category: Medical Plan In office urinalysis results reviewed with the patient today; as noted above. Recent renal ultrasound results reviewed with the patient today; as noted above. We discussed further treatment options of nephrolithiasis in risks and benefits of these treatment options. She currently denies any bothersome urinary issues. She reports be happy with current voiding parameters. Will obtain KUB for further assessment evaluation. We did discussed near future metabolic workup to include Litholink and labs. We discussed the importance of adequate hydration relation to nephrolithiasis as well as overall health and well-being. Follow-up in 1 to 3 months with imaging to be completed prior; or sooner with any issues, concerns, and or questions. Orders: Orders AMB Urinalysis Automated Today Z13.9 - Encounter for screening, unspecified XR KUB Today N20.0 - Calculus of kidney Patient Instructions: The patient had an opportunity to ask questions regarding the treatment plan. All questions were answered. Physical exam, labs, and imaging were discussed and reviewed in detail. As well as risks, benefits, and discussion of treatment choices. No major barriers to understanding were identified. The patient expressed understanding and agreement with the above treatment plan. The patient was made aware they should contact our office by phone for worsening of their current condition, the appearance of new symptoms, or with any questions or concerns. Compliance is encouraged with any medications and follow up testing that is ordered. It is a privilege to be allowed the opportunity to participate in? your urological care.? Again, if you have any questions or concerns If you have any questions or concerns please do not hesitate to contact me. The office is [phone]. This note is constructed using voice recognition software. While every effort has been made to ensure accuracy brooch and bracelet maker errors may have been included. Yours sincerely, TIAN Khan Coding Level of Care Code Est Pt Level 3 (88399) Complex EM visit Add On G2211 Diagnoses Recurrent kidney stones N20.0
--- OUTSIDE RECORDS SUMMARY | 2025-07-06 10:05 | XMS_ITS | Clinical Summary ---
Author Organization [facility] Address [address] [place] [address] Care Team Providers Care Optical Engineering Technician Name Role Phone Unavailable Primary Care Provider [...]
--- OUTSIDE RECORDS SUMMARY | 2025-07-06 10:05 | XMS_ITS | Clinical Summary ---
Author Organization [facility] Address [address] [place] [address] Care Team Providers Care Maintenance Mechanic Name Role Phone Unavailable Primary Care Provider [...] patient's age to complete this topic Insurance [facility] on file MEDICARE PART A & B Advance Directives * Full Code (Latest Code Status on File) Date Activated Date Inactivated Comments 02/13/2021 6:20 PM Question Answer Comments Decision Thoroughly Discussed with: Patient
== END 2025-07-06 09:52 | disposition home or self-care (01) ==
LOC: HO.HUSH 09:21
PROVIDERS: PCP Internal Medicine; Visit Provider Nurse Practitioner Family
DX: Z13.9 Encounter for screening, unspecified (principal); N20.0 Calculus of kidney
CPT/HCPCS: 99213; G2211

== ENCOUNTER → 2025-07-06 09:20 | Outpatient (BNVA) | payer MEDICARE, SELFPAY | PROVIDERS: PCP Internal Medicine; Visit Provider Nurse Practitioner Family | DX: N20.0 Calculus of kidney (principal) | CPT/HCPCS: 81003; 99212 ==

== ENCOUNTER 2025-07-13 12:57 | Outpatient (AMB) | payer MEDICARE, SELFPAY ==
[2025-07-13 13:06] VITALS: BP 130/66; PULSE 88; RESP 16; TEMP 36.5; O2SAT 97; BMI 32.8
--- NOTE | 2025-07-13 13:06 | MHC.PC.OV ---
Vital Signs 07/13/25 13:06 Height 5 ft Weight 168 lb BMI 32.8 BP 130/66 Blood Pressure Location Lt brachial Position Supine Respiration 16 Pulse 88 Pulse Source Pulse Oximeter Temp 97.7 F Temp Source Oral Pulse Oximetry (%) 97 Oxygen Delivery Method Room Air Comment b/p 124/62 sitting and 122/62 standing Intake Visit Reasons: Dizziness Intake Note: Pt is here today c/o on and off set vertigo: is currently attending physical therapy from neurology: has been to the ER in the past regarding her veritgo: pt states the meclizine was helping Allergies hydroxychloroquine Adverse Reaction (Intermediate, Verified 07/13/25 13:18) Questionable retinopathy Medication List - Last Reconciled 07/13/25 by Lakshmi Rouse MD acetaminophen ER 650 mg PO Q8H PRN adalimumab (Humira(CF)) 40 mg (0.4 mL) subcut WE@0900 carbamazepine 100 mg PO BID cholecalciferol (vitamin D3) 75 mcg PO DAILY diclofenac sodium 1% 1 ea topical DAILY PRN omeprazole 40 mg PO DAILY@0630 pregabalin 150 mg PO BID pregabalin 25 mg PO BID Tobacco use date assessed: 01/14/25 Fall risk assessment: 2 + Falls in past year Last assessed Fall Risk: 07/13/25 Dental Screening Dental Screen Date: 01/14/25 Did you have a dental visit in the last 12 months?: Yes Did you have a dental problem in the last 6 months where you did not have access to dental care?: No Was dental information given to patient?: Patient has dentist HPI Dizziness HPI Details The patient is a 69-year-old female presenting with intermittent dizziness. The dizziness has been ongoing for several months, with episodes lasting up to 12 hours and occurring without specific triggers. The dizziness is severe enough to cause a sensation similar to being intoxicated, requiring assistance with daily activities. 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 This finding may explain the dizziness, as the affected area of the brain is involved in balance and movement control. The patient has not yet seen a neurologist for this issue, although physical therapy was done , but found ineffective. The patient also reports emotional lability, which may be related to the? basal ganglia infarct. She has a history of arthritis, for which she is taking Humira, and the dosage was recently increased to weekly administration, which also coincided with worsening of her lightheadedness . found to have vitamin D deficiency, for which she is taking supplements. [facility] Medical History Intermittent lightheadedness Intertrigo Vitamin D deficiency Recurrent kidney stones Sleep apnea Splenic artery aneurysm Shoulder pain, right Trigeminal neuralgia of right side of face Seronegative rheumatoid arthritis Loose right total knee arthroplasty Gastroesophageal reflux disease Hiatal hernia Tailor's bunion of left foot Fibromyalgia Osteoarthritis Impaired fasting glucose Insomnia Cervical spondylosis without myelopathy Autoimmune urticaria Morbid obesity due to excess calories Surgical History S/P hip replacement History of esophagogastroduodenoscopy (EGD) History of colonoscopy History of arthroscopy of right shoulder History of laparoscopic cholecystectomy Status post laser lithotripsy of ureteral calculus History of bunionectomy of left great toe History of cranioplasty History of shoulder surgery Status post right knee replacement Family History Father Emphysema of lung Mother Hypertension Maternal Grandmother No problems noted. Maternal Grandfather No problems noted. Paternal Grandmother No problems noted. Paternal Grandfather No problems noted. Maternal Aunt Diabetes Sister No problems noted. Son No problems noted. Daughter No problems noted. Social History Household Members: Spouse and Family Household Members Other:: mother,daughter Housing: House Are you a primary urgent care technician to a significant other at home: No Do you presently have visiting nurse or other home services: No Alcohol intake: never Patient Tobacco Use Status: Never used Tobacco e-Cigarette/Vaping Use: Never Used service: No Current occupational status: unemployed Current occupation: rt handed Cognitive needs: No Hearing needs: No Vision needs: No Questionnaire PHQ-9 Over the last 2 weeks, how often have you been bothered by any of the following problems? Depression Screening Interpretation: Negative Depression Screening Done: Yes Source: Developed by Drs. Raza Nova, Kassandra Munoz, Steven Velasco and colleagues, with an educational nyla from [employer]. Thrive Questionnaire Date Thrive assessed: 01/14/25 I am a: Patient What is your living situation today?: I have a steady place to live Within the past 12 months, did the food you bought not last and you didn't have the money to get more?: Never true Within the past 12 months, did you worry whether your food would run out before you got money to buy more?: Never true Do you have trouble paying for medicines?: No Do you have trouble getting transportation to medical appointments?: No Do you have trouble paying your heating and electricity bill?: No Do you have trouble taking care of your child, family member or friend?: No Do you have trouble with day-to-day activities such as bathing, preparing meals, shopping, managing finances, etc.?: No Are you currently unemployed and looking for a job?: No Are you interested in more education?: No Please select the resources that you would like help with: None Currently or been in a relationship where the following occur: No concerns reported THRIVE Score: 0 JOSÉ MANUEL-7 AMB Questionnaire JOSÉ MANUEL-7 Date JOSÉ MANUEL - 7 assessed: 01/14/25 Source: Developed by Drs. Raza Nova, Kassandra Munoz, Steven Velasco and colleagues, with an educational nyla from [employer]. Review of Systems Const Reports as per HPI and Reports no additional complaints Eyes Reports no additional complaints ENT Reports no additional complaints Card Denies chest pain at rest, Denies chest pain with activity, Denies syncope, Denies rapid heart rate and Denies irregular heart rhythm Resp Reports no additional complaints GI Reports no additional complaints Musc Denies abnormal gait and Reports stiffness Skin/Breast Denies lesions and Denies rash Neuro Reports as per HPI, Denies abnormal gait and Denies syncope Psych Reports no additional complaints Endo Reports no additional complaints Cole/Lymph Reports no additional complaints Aller/Immun Reports no additional complaints Physical exam (Primary Care) Vital Signs: Last Vital Signs Temp 97.7 F 07/13/25 13:06 Pulse 88 07/13/25 13:06 Resp 16 07/13/25 13:06 BP 130/66 07/13/25 13:06 Pulse Ox 97 07/13/25 13:06 Oxygen Delivery Method Room Air 07/13/25 13:06 BMI result Body Mass Index 32.8 Tobacco/Smoking Status: Tobacco use Status Tobacco use date assessed 01/14/25 07/13/25 13:08 Patient Tobacco Use Status Never used Tobacco 07/13/25 13:08 e-Cigarette/Vaping Use Never Used 07/13/25 13:08 Depression Screening Interpretation: Negative Thrive Assessment: Date of Thrive Assessment Date Thrive assessed 01/14/25 07/13/25 13:08 Currently or been in a relationship where the following occur: No concerns reported Const General: no acute distress, alert, awake and other (Has been accompanying patient to assist with ambulation) Orientation/consciousness: patient oriented x3 [facility] General nose exam: Normal external nose present Face and sinus: Yes face symmetric Mouth: Normal oral and palatal mucosa present and moist mucous membranes Eyes General: appearance normal, both eyes and all related structures Neck Neck: Yes full ROM, Yes no lymphadenopathy and Yes supple Resp Effort & Inspection: normal respiratory effort and able to speak in complete sentences Auscultation: clear to auscultation bilaterally Cardio Rate: regular rate Rhythm: regular rhythm Heart sounds: S1 normal heart sound present and S2 normal heart sound present GI Inspection: Yes normal to inspection Palpation (GI): Soft to palpation, nontender and no masses Auscultation: normal bowel sounds General: Yes no CVA tenderness Back/Spine/Pelvis Back: no CVA tenderness and No back tenderness Neuro General: patient oriented x3, moves all extremities, Normal light touch and pain sensation and no focal motor deficits Cognition (Neuro): normal cognition Gait exam (Neuro): Other gait observations present (slow gait) Extrem General: Yes no joint enlargement and Yes no pedal edema Psych Appearance: grossly normal and well kempt Mental Status: mental status grossly normal Speech and movement: Normal speech and movement present Affect: normal affect Results Reviewed Results Reviewed: Name: Day Purvis Age/Sex: 69/F : 1955 Unit#: [id number] Attend Dr: Katie Jones MD Re05/18/25 Status: DEP REF Location: .LAB Disch: SPEC : [id number] OSVALDO: 05/18/25 STATUS: COMP REQ : [id number] RECD: 05/18/[address]: Katie Jones MD COMP: 05/18/25-1224 ENTERED: 05/18/25-[address]: Lakshmi Rouse MD ORDERED: CMP, C Reactive Prot Test Result Flag Reference Sodium 149 H 135-145 mmol/L Potassium 4.0 3.3-5.1 mmol/L CL 111 H 96-108 mmol/L CO2 30 H 22-29 mmol/L Gap 12 12-20 BUN 10 9-16 mg/dL Creat 0.78 0.5-1.4 mg/dL eGFR > 60 Chronic Kidney Disease: Estimated GFR < 60 mL/min/1.73m2 Severe Kidney Disease: Estimated GFR < 15 mL/min/1.73m2 Glucose, Random 130 H 60-115 mg/dL CA 8.4 8.4-10.2 mg/dL Total Bili 0.3 0.0-1.0 mg/dL AST (GOT) 24 5-31 U/L ALT (GPT) 19 0-31 U/L CRP 0.13 < or = 0.50 mg/dL Protein, Total 6.8 6.5-8.0 g/dL Alb 3.9 3.5-5.0 g/dL Alk Phos 91 39-117 U/L Laboratory Tests 01/02/25 05/18/25 11:39 11:28 WBC 3.7 L Hgb 12.3 Hct 36.0 L Plt Count 156 L 25-OH Vitamin D Total 16.3 L Coding Level of Care Code Est Pt Level 4 (17585) Complex EM visit Add On G2211 Diagnoses Intermittent lightheadedness R42 Seronegative rheumatoid arthritis M06.00 Vitamin D deficiency E55.9 Assessment & Plan Assessment & Plan (1) Intermittent lightheadedness: Code(s): R42 - Dizziness and giddiness Category: Medical Plan: No orthostasis noted, patient is borderline anemic, which should not cause her frequent episodes of lightheadedness. CT scan on January 2025 suggests presence of old basal ganglia infarct, which may be contributing to the patient's dizziness and balance issues. The patient was advised to follow up with her neurologist to explore potential treatment options and confirm the diagnosis. Meclizine has been prescribed to manage symptoms, but the patient should be monitored for effectiveness and side effects. Her Emotional lability, maybe associated with probable basal ganglia infarct. Monitoring and supportive care are advised, with further assessment by a neurologist. Requesting prescription for a transport wheelchair which was approved, as patient has been having frequent episodes of lightheadedness which affects her balance (2) Seronegative rheumatoid arthritis: Comment: Seronegative RA diagnosed in [place]. Evaluated [facility] 2007 - has been on Plaquenil 200 mg BID and Enbrel weekly since then. MTX dates unknown. ENbrel DC 05/30 ineffective Humira 05/30. increased to weekly 10/2024 Plaquenil stopped 10/2024 due to eye changes Code(s): M06.00 - Rheumatoid arthritis without rheumatoid factor, unspecified site Category: Medical Plan: The patient is currently on Humira, with a recent increase in dosage. Advised to let her rheumatoid know about increased frequency in her lightheadedness episodes, which could be a side effect of Humira (3) Vitamin D deficiency: Code(s): E55.9 - Vitamin D deficiency, unspecified Category: Medical Plan: Continue taking vitamin-D 375 mcg daily Plan Patient was informed and verbally consented to the use of an ambient scribe for clinic note documentation during this visit. Medications: New meclizine 12.5 mg PO DAILY PRN 30 tabs 0RF dizziness
--- OUTSIDE RECORDS SUMMARY | 2025-07-13 15:20 | XMS_ITS | Clinical Summary ---
Author Organization [facility] Address [address] [place] [address] Care Team Providers Care Carpentry Supervisor Name Role Phone Unavailable Primary Care [...]
--- OUTSIDE RECORDS SUMMARY | 2025-07-13 15:20 | XMS_ITS | Clinical Summary ---
Author Organization [facility] Address [address] [place] [address] Care Team Providers Care Coin Collector Name Role Phone Unavailable Primary Care Provider [...] patient's age to complete this topic Insurance [facility] on file MEDICARE PART A & B Advance Directives * Full Code (Latest Code Status on File) Date Activated Date Inactivated Comments 02/13/2021 6:20 PM Question Answer Comments Decision Thoroughly Discussed with: Patient
== END 2025-07-13 14:13 | disposition home or self-care (01) ==
LOC: HO.HMCC 12:58
PROVIDERS: PCP Internal Medicine; Visit Provider Internal Medicine
DX: R42 Dizziness and giddiness (principal); M06.00 Rheumatoid arthritis without rheumatoid factor, unspecified site; E55.9 Vitamin D deficiency, unspecified

== ENCOUNTER → 2025-07-13 12:57 | Outpatient (BNVA) | payer OTHER, SELFPAY | PROVIDERS: PCP Internal Medicine; Visit Provider Internal Medicine | DX: R42 Dizziness and giddiness (principal); E55.9 Vitamin D deficiency, unspecified; M06.00 Rheumatoid arthritis without rheumatoid factor, unspecified site | CPT/HCPCS: 99212 ==

== ENCOUNTER 2025-07-17 13:16 | Outpatient (REF) | payer OTHER, SELFPAY ==
--- NOTE | ~2025-07-17 | XR_ITS ---
EXAMINATION: XR ABDOMEN KUB CLINICAL INDICATION: N20.0 - Calculus of kidney COMPARISON: None available. TECHNIQUE: AP view of the abdomen. FINDINGS: Nonobstructive bowel gas pattern. Bowel gas and stool projected over the renal fossa limiting evaluation. No renal calculi identified. No ureteral calculi identified. Redemonstrated chronic peripheral calcified splenic artery aneurysm in the left upper quadrant, also seen on the prior radiographs and CT. Cholecystectomy clips. Thoracic spine degeneration. No acute lung findings. Right hip arthroplasty. XR/XR KUB IMPRESSION: No evidence of renal or ureteral calculi. Bowel gas and stool limiting evaluation. Electronically signed by: Lester Domingo MD 07/17/2025 01:57 PM EDT
== END 2025-07-17 13:17 | disposition home or self-care (01) ==
LOC: HO.XRAY 13:16
PROVIDERS: PCP Internal Medicine; Visit Provider Nurse Practitioner Family
DX: N20.0 Calculus of kidney (principal)
CPT/HCPCS: 74018

== ENCOUNTER → 2025-07-17 13:22 | Outpatient (BNV) | payer OTHER, SELFPAY | PROVIDERS: PCP Internal Medicine; Visit Provider Radiology Diagnostic Ultrasound | DX: I72.8 Aneurysm of other specified arteries (principal) | CPT/HCPCS: 74018 ==

== ENCOUNTER 2025-07-21 10:00 | Outpatient (AMB) | payer OTHER, SELFPAY ==
--- NOTE | 2025-07-21 10:04 | A.OFFVIS_ITS ---
Vital Signs 07/21/25 10:13 Height 5 ft Weight 167 lb 5.294 oz BMI 32.7 BP 132/70 Blood Pressure Location Lt brachial Position Sitting Pulse 84 Pulse Source Pulse Oximeter Pulse Oximetry (%) 97 Oxygen Delivery Method Room Air Intake Visit Reasons: follow up Intake Note: Patient presents for RA follow up. Certified Professional Ergonomist Required: Yes Certified Professional Ergonomist Language: Vehicle Washer Services: Certified Professional Ergonomist Offered & Declined Certified Professional Ergonomist Name: Duncan Serrano Information Interpreted: non-clinical & clinical Recycling Sorter: Recycling Sorter Present (Duncan Serrano) Accompanied by: Son Allergies hydroxychloroquine Adverse Reaction (Intermediate, Verified 07/21/25 10:12) Questionable retinopathy HPI Comments Details: Patient is a 69-year-old female with obstructive sleep apnea, portal hypertension complicated by splenic artery aneurysm, 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 Interval History: Patient last seen 03/19/25 with me - On Humira 40mg SC every week - Patient complaining of bilateral knee pain. States that she injured her knee in the bathtub a couple weeks ago and feels like something is dislodged. She follow up with her oncology account specialist who had x-rays done with said there was nothing wrong but she continues to feel pain and they recommended topical diclofenac 3 times a day however she is continuing to have pain. - She also is complaining of pain in her lower back and in her neck for which she is followed up with ortho spine and they are recommending injections. - She is still recovering from her right shoulder surgery which she had done in January and so they said that she would have to heal from that before trying something else. - No evidence of synovitis on exam - Complaints attributed to degenerative joint disease Today - On Humira 40mg SC every week - Has been noticing worsening stiffness of the hands for the past 4 weeks - Also continues to complain of bilateral knee pain, has seen ortho who states nothing further to do from their standpoint - Had right shoulder surgery 01/2025 Rheumatologic History: Seronegative rheumatoid arthritis Seronegative RA diagnosed in [place]. Evaluated at [facility] in 2007 - has been on Plaquenil 200 mg BID and Enbrel weekly since then. MTX dates unknown. ENbrel DC 05/30 ineffective Humira 05/30 Plaquenil stopped 10/2024 due to eye changes Current Rheumatology Medication(s): Humira 40 mg sc every week [facility] Medical History (Updated 07/20/25 @ 17:34 by Lakshmi Rouse MD) Unstable gait Intermittent lightheadedness Intertrigo Vitamin D deficiency Recurrent kidney stones Sleep apnea Splenic artery aneurysm Shoulder pain, right Trigeminal neuralgia of right side of face Seronegative rheumatoid arthritis Loose right total knee arthroplasty Gastroesophageal reflux disease Hiatal hernia Tailor's bunion of left foot Fibromyalgia Osteoarthritis Impaired fasting glucose Insomnia Cervical spondylosis without myelopathy Autoimmune urticaria Morbid obesity due to excess calories Surgical History S/P hip replacement History of esophagogastroduodenoscopy (EGD) History of colonoscopy History of arthroscopy of right shoulder History of laparoscopic cholecystectomy Status post laser lithotripsy of ureteral calculus History of bunionectomy of left great toe History of cranioplasty History of shoulder surgery Status post right knee replacement Family History Father Emphysema of lung Mother Hypertension Maternal Grandmother No problems noted. Maternal Grandfather No problems noted. Paternal Grandmother No problems noted. Paternal Grandfather No problems noted. Maternal Aunt Diabetes Sister No problems noted. Son No problems noted. Daughter No problems noted. Social History Household Members: Spouse and Family Household Members Other:: mother,daughter Housing: House Are you a primary vehicle care specialist to a significant other at home: No Do you presently have visiting nurse or other home services: No Alcohol intake: never Patient Tobacco Use Status: Never used Tobacco e-Cigarette/Vaping Use: Never Used service: No Current occupational status: unemployed Current occupation: rt handed Cognitive needs: No Hearing needs: No Vision needs: No Review of Systems Const Details: Review of Systems Constitutional: Denies fever, chills, weight loss ENT: Denies vision changes, eye pain or eye redness, dental caries, dry mouth GI: Denies nausea, vomiting, diarrhea, abdominal pain, change in BM Pulm: Denies SOB, MOSS, hemoptysis, wheezing Cards: Denies chest pain, palpitations Skin: Denies Raynaud's, rash, nail changes, photosensitivity, METAL MOCKUP MAKER: Denies headaches, weakness, paresthesias, recurrent falls MSK: as per HPI All other systems reviewed and are unremarkable except noted above Physical Exam Exam Exam: Vital signs reviewed Physical Examination CONSTITUITIONAL Patient alert and cooperative. Well appearing and in no apparent painful distress MSK Hands * Right Hand: Able to make a fist. No swelling but TTP of the MCPs and PIPs * Left Hand: Able to make a fist. No swelling but TTP of the MCPs and PIPs * Herbedens and Bouchards nodes noted bilaterally Wrists * Right Wrist: Full ROM to flexion and extension. No swelling or TTP * Left Wrist: Full ROM to flexion and extension. No swelling or TTP Elbows * Right Elbow: Full ROM. No swelling or TTP. No TTP of the medial epicondyle. No TTP of the lateral epicondyle * Left Elbow: Full ROM. No swelling or TTP. No TTP of the medial epicondyle. No TTP of the lateral epicondyle Shoulders * Right shoulder: No swelling noted. No TTP of the AC joint. TTP of the subacromial bursa. No TTP of the posterior shoulder * Left shoulder: No swelling noted. No TTP of the AC joint. TTP of the subacromial bursa. No TTP of the posterior shoulder Knees * Right knee: Surgical scar noted anteriorly. No swelling noted. TTP of the knee joint line. No TTP of pes anserine bursa * Left knee: Surgical scar noted anteriorly. Warmth to touch. No TTP of the knee joint line. No TTP of pes anserine bursa. Ankles * Right ankle: Good ankle dorsiflexion and plantar flexion. No swelling. No TTP of the ankle joint * Left ankle: Good ankle dorsiflexion and plantar flexion. No swelling. No TTP of the ankle joint Feet * Right foot: Negative squeeze test * Left foot: Negative squeeze test Tender points? * No tenderness to palpation of the bilateral trapezius, supraspinatus, anterior costochondral junctions, bilateral suboccipital muscle insertions SKIN No rashes Vital Signs: Last Vital Signs Pulse 84 07/21/25 10:13 BP 132/70 07/21/25 10:13 Pulse Ox 97 07/21/25 10:13 Oxygen Delivery Method Room Air 07/21/25 10:13 BMI result Body Mass Index 32.7 Results Reviewed Results Reviewed: Laboratory Tests 05/18/25 11:28 WBC 3.7 L RBC 3.83 L Hgb 12.3 Hct 36.0 L Plt Count 156 L ESR 18 Sodium 149 H Potassium 4.0 Chloride 111 H Carbon Dioxide 30 H BUN 10 Creatinine 0.78 AST 24 ALT 19 C-Reactive Protein 0.13 Laboratory Tests 05/18/25 11:28 Hepatitis A IgM Ab Nonreactive Hep Bs Antigen Negative Hep Bs Antibody NONREACTIVE Hep B Core Total Ab Nonreactive Hepatitis C Ab (EIA) Nonreactive HIV 1&2 Ab/P24 Ag 4thGn Nonreactive Assessment & Plan Assessment & Plan (1) Seronegative rheumatoid arthritis: Comment: Seronegative RA diagnosed in [place]. Evaluated at [facility] in 2007 - has been on Plaquenil 200 mg BID and Enbrel weekly since then. MTX dates unknown. ENbrel DC 05/30 ineffective Humira 05/30. increased to weekly 10/2024 Plaquenil stopped 10/2024 due to eye changes Code(s): M06.00 - Rheumatoid arthritis without rheumatoid factor, unspecified site Category: Medical Plan: #Rheumatoid arthritis Patient is a 69 y.o. female with seronegative RA. On Humira monotherapy every week. Elevated CDAI today with TTP of the MCPs and PIPs bilaterally. Will give a course of prednisone for the flare If this persists after the prednisone course we may need to increase her immunosuppression Plan - Humira 40mg SC every week - Prednisone: Take 20mg for 10 days then 15mg for 10 days then 10mg for 10 days then 5mg for 10 days and stop - RTC 4 months - Labs prior to visit: CBC, CMP, ESR, CRP, Hepatitis panel and T spot (2) Encounter for monitoring of adalimumab therapy: Code(s): Z51.81 - Encounter for therapeutic drug level monitoring; Z79.620 - care home (current) use of immunosuppressive biologic Plan: #Long-term Use of TNF Inhibitors: Humira Discussed with the patient the benefits and risks of TNF inhibitors for the management of the rheumatic condition Benefits include reduce pain, maintenance of remission and reduction of flares as well as ?progression of the disease Risks include injection sites/infusion reactions, serious infections (such as bacterial infections, opportunistic infections), malignancy, delaminating syndromes, autoimmune phenomena, CHF exacerbations, palmar plantar psoriasis and cytopenias Recommended rotating injection sites, and holding medication during and for up to 1 week after resolution of a febrile illness or open skin wound Plan I spent 30 minutes reviewing the record and labs, taking a history, examining the patient, discussing the treatment plan and documenting in the medical record Orders: Orders Complete Blood Count Auto Diff 4 Months Z - Other buttermilk drier operator (current) drug therapy Comprehensive Met. Panel 4 Months - Other buttermilk drier operator (current) drug therapy Erythrocyte Sedimentation Rate 4 Months Z. - Other buttermilk drier operator (current) drug therapy Hepatitis B,C Profile 4 Months . - Other usp (current) drug therapy C Reactive Protein 4 Months Z. - Other usp (current) drug therapy T Spot TB 4 Months Z. - Other usp (current) drug therapy Medications: New prednisone Take 4 tablets for 10 days (20mg) then 3 tablets for 10 days (15mg) then 2 tablets for 10 days (10mg) then 1 tablet for 10 days 5 mg then stop 5 mg PO DIRECTED 100 tabs 0RF M06.00 - Rheumatoid arthritis without rheumatoid factor, unspecified site Changed From adalimumab (Humira(CF)) 40 mg (0.4 mL) subcut WE@0900 2 ea 5RF M06.00 - Rheumatoid arthritis without rheumatoid factor, unspecified site To adalimumab (Humira(CF)) 40 mg (0.4 mL) subcut QWEEK 4 ea 5RF M06.00 - Rheumatoid arthritis without rheumatoid factor, unspecified site Coding Level of Care Code Est Pt Level 4 (13392) Complex EM visit Add On G2211 Diagnoses Seronegative rheumatoid arthritis M06.00 Encounter for monitoring of adalimumab therapy Z51.81; Z79.620
[2025-07-21 10:13] VITALS: BP 132/70; PULSE 84; O2SAT 97; BMI 32.7
--- OUTSIDE RECORDS SUMMARY | 2025-07-21 11:28 | XMS_ITS | Clinical Summary ---
Author Organization [facility] Address [address] [place] [address] Care Team Providers Care Bridge Manager Name Role Phone Unavailable Primary Care [...] patient's age to complete this topic Insurance [facility] on file MEDICARE PART A & B Advance Directives * Full Code (Latest Code Status on File) Date Activated Date Inactivated Comments 02/13/2021 6:20 PM Question Answer Comments Decision Thoroughly Discussed with: Patient
--- OUTSIDE RECORDS SUMMARY | 2025-07-21 11:28 | XMS_ITS | Clinical Summary ---
Author Organization [facility] [employer] [facility] Address [address] [place] [address] Care Team Providers Care Skill Training Program Coordinator Name Role Phone Unavailable Primary Care Provider [...]
== END 2025-07-21 10:41 | disposition home or self-care (01) ==
LOC: HO.RHES 10:01
PROVIDERS: PCP Internal Medicine; Visit Provider Student in an Organized Health Care Education/Training Program
DX: M06.09 Rheumatoid arthritis without rheumatoid factor, multiple sites (principal); Z51.81 Encounter for therapeutic drug level monitoring; Z79.620 Long term (current) use of immunosuppressive biologic
CPT/HCPCS: 99214; G2211

== ENCOUNTER → 2025-07-21 10:00 | Outpatient (BNVA) | payer OTHER, SELFPAY | PROVIDERS: PCP Internal Medicine; Visit Provider Student in an Organized Health Care Education/Training Program | DX: M06.09 Rheumatoid arthritis without rheumatoid factor, multiple sites (principal); Z79.899 Other long term (current) drug therapy | CPT/HCPCS: 99212 ==

== ENCOUNTER 2025-08-24 07:54 | Outpatient (REF) | payer OTHER, SELFPAY ==
--- OUTSIDE RECORDS SUMMARY | 2025-08-24 09:19 | XMS_ITS | Patient Health Record ---
Author Organization [facility] Address [address] [place] [address] Care Team Providers Care Stationary Boiler Fireman Name Role Phone Victorina Potter Primary Care Provider Raza Allan Unavailable [phone] Reason For Referral No Information Medications Medication SIG (Take, Route, Frequency, Duration) Notes Start Date End Date Status Vitamin D3 1000 UNIT Capsule 1 capsule O rally Once a day; Duration: 30 day(s) Active Gabapentin 300 MG Capsule 1 capsule Oral ly Once a day Active Tylenol Arthritis Pain 650 M G Tablet Extended Release 2 tablets as needed Orally every 8 hrs/prn Active Omeprazole 20 MG Capsule Delayed Release 1 capsule Orally Once a day Active Hydroxychloroquine Sulfate 200 MG Tablet as directed Orally as directed Active Enbrel 50 MG/ML Solution 1 ml Subcutaneous Active Immunizations Vaccine Route Administration Date Status Comme nts Influenza Unknown 08/06/2018 Administered Social History Tobacco Use: Social History Observation Description Date Details (start date - stop date) Never Smoker NA - NA Social History Drugs/Alcohol: Social Info Question Answer Notes Alcohol Screen Did you have a drink containing alcohol in the past year? No Points 0 Interpretation Negative Tobacco Use: Social Info Question Answer Notes Tobacco Use/Smoking Patient is a nonsmoker Additional Details Category Social Info Options Details Miscellaneous: Marital status: Occupation: unemployed Section Notes: Nonsmoker; no sig alcohol Problems Problem Type SNOMED Code ICD Code Onset Dates Problem Status W/U Status Risk Notes Problem Screening for malignant neoplasm of colon (119107255) Encounter for screening for malignant neoplasm of colon (Z12.11) Active confirmed Problem Long-term current use of antibiotic (044158537) Need for prophylactic antibiotic (Z79.2) Active confirmed Plan Of Treatment Future Test Test Name Order Date COLONOSCOPY 07/09/2019 Insurance Providers Payer Name Payer Address Payer Phone Subscriber Number Group Number Insured Name Patient Relationship to Insured Coverage Start Date Coverage End Date MEDICARE OF [place] [address] [place] [id number] MONO BOWER Self - patient is the insured MEDICAID OF [facility] [address] [place] [phone] [id number] MONO BOWER Self - patient is the insured Medical (General) History Medical History History ICD Code Denies HI,DM,CVA,Lung disease,renal dise ase Rheumatoid arthritis Splenic varices, ? etiology- -- seen and imaging studies in 2007--- however, a CAT scan and ultrasound of the abdomen in 2019 were negative for any sign of varices, liver disease, nor spleen abnormalities. GERD-neg EGD in 2007 except for a --no varices Neg. screening colonoscopy in 2007 Surgical History Surgery Date(Month/Year) Cholecystectomy 06/18/2019 Right knee replacement 01/2018 Right Trigeminal neuralgia surgery 2014 Left foot surgery x 3
--- OUTSIDE RECORDS SUMMARY | 2025-08-24 09:20 | XMS_ITS | Clinical Summary ---
Author Organization [facility] Address [address] [place] [address] Care Team Providers Care Cotton Stomper Name Role Phone Unavailable Primary Care Provider [...] 1976 Mammogram 1997 Colonoscopy 2002 RSV Vaccine 50 years and old er and Patients (1 - Risk 50-74 years 1-dose series) 2007 DXA Bone Density (Females,Ag es 65 and older) 2022 Influenza Vaccine 05/08/2025 Hepatitis B Vaccines Aged Out No long er eligible based on patient's age to complete this topic Insurance [facility] on file MEDICARE PART A & B Advance Directives * Full Code (Latest Code Status on File) Date Activated Date Inactivated Comments 02/13/2021 6:20 PM Question Answer Comments Decision Thoroughly Discussed with: Patient
--- OUTSIDE RECORDS SUMMARY | 2025-08-24 09:20 | XMS_ITS | Clinical Summary ---
Author Organization [facility] [employer] [facility] Address [address] [place] [address] Care Team Providers Care Developmental Education Instructor Name Role Phone Unavailable Primary Care Provider [...]
== END 2025-08-24 07:55 | disposition home or self-care (01) ==
LOC: HO.LAB 07:54
PROVIDERS: PCP Internal Medicine; Visit Provider Internal Medicine
DX: R73.01 Impaired fasting glucose (principal)
CPT/HCPCS: 36415; 83036

== ENCOUNTER 2025-08-27 10:45 | Outpatient (AMB) | payer OTHER, SELFPAY ==
--- NOTE | 2025-08-27 10:50 | MHC.PC.OV ---
Vital Signs 08/27/25 10:52 Height 5 ft Weight 167 lb BMI 32.6 BP 124/62 Blood Pressure Location Rt brachial Position Sitting Respiration 16 Pulse 66 Pulse Source Pulse Oximeter Temp 97.9 F Temp Source Oral Pulse Oximetry (%) 98 Oxygen Delivery Method Room Air Intake Visit Reasons: dry mouth, ?diabetic Intake Note: Pt is here to f/u labs Lap Grinder Required: No Allergies hydroxychloroquine Adverse Reaction (Intermediate, Verified 08/27/25 11:02) Questionable retinopathy Medication List - Last Reconciled 08/27/25 by Lakshmi Rouse MD acetaminophen ER 650 mg PO Q8H PRN adalimumab (Humira(CF)) 40 mg (0.4 mL) subcut QWEEK carbamazepine 100 mg PO BID cholecalciferol (vitamin D3) 75 mcg PO DAILY diclofenac sodium 1% 1 ea topical DAILY PRN meclizine 12.5 mg PO DAILY PRN omeprazole 40 mg PO DAILY@0630 prednisone 5 mg PO DIRECTED pregabalin 150 mg PO BID pregabalin 25 mg PO BID [Transport wheelchair Use As directed] Tobacco use date assessed: 08/27/25 Fall risk assessment: 2 + Falls in past year Last assessed Fall Risk: 08/27/25 Dental Screening Dental Screen Date: 08/27/25 Did you have a dental visit in the last 12 months?: Yes Did you have a dental problem in the last 6 months where you did not have access to dental care?: Yes Was dental information given to patient?: Patient has dentist HPI dry mouth, ?diabetic HPI Details The patient is a 69 year old individual presenting for lab result review and management of chronic conditions. Recent labs show a hemoglobin A1c of 6.1%, with an average glucose of 128 mg/dL, consistent with prediabetes. The paternal grandfather had a history of diabetes. The patient does not currently engage in regular exercise due to frequent episodes of lightheadedness. Dietary history includes daily bread consumption, coffee with a significant amount of creamer and sugar, and cravings with late-night eating around 1 AM. The patient reports experiencing dizziness. This symptom is noted to be a potential side effect of pregabalin, which the patient takes at a high dose for fibromyalgia. The patient has a history of seronegative rheumatoid arthritis and is followed by a director of staff development, Dr. Jones. The patient also complains of dry mouth, which is thought to be a side effect of medication rather than a symptom of hyperglycemia. Prior lab work from October showed normal cholesterol levels, and recent labs indicate normal blood counts and kidney function. Laboratory Tests 08/24/25 08:04 Estimat Average Gl ucose 128 Hemoglobin A1c % 6.1 H [facility] Medical History Unstable gait Intermittent lightheadedness Intertrigo Vitamin D deficiency Recurrent kidney stones Sleep apnea Splenic artery aneurysm Shoulder pain, right Trigeminal neuralgia of right side of face Seronegative rheumatoid arthritis Loose right total knee arthroplasty Gastroesophageal reflux disease Hiatal hernia Tailor's bunion of left foot Fibromyalgia Osteoarthritis Impaired fasting glucose Insomnia Cervical spondylosis without myelopathy Autoimmune urticaria Morbid obesity due to excess calories Surgical History S/P hip replacement History of esophagogastroduodenoscopy (EGD) History of colonoscopy History of arthroscopy of right shoulder History of laparoscopic cholecystectomy Status post laser lithotripsy of ureteral calculus History of bunionectomy of left great toe History of cranioplasty History of shoulder surgery Status post right knee replacement Family History Father Emphysema of lung Mother Hypertension Maternal Grandmother No problems noted. Maternal Grandfather No problems noted. Paternal Grandmother No problems noted. Paternal Grandfather No problems noted. Maternal Aunt Diabetes Sister No problems noted. Son No problems noted. Daughter No problems noted. Social History Household Members: Spouse and Family Household Members Other:: mother,daughter Housing: House Are you a primary healthcare prof to a significant other at home: No Do you presently have visiting nurse or other home services: No Alcohol intake: never Patient Tobacco Use Status: Never used Tobacco e-Cigarette/Vaping Use: Never Used service: No Current occupational status: unemployed Current occupation: rt handed Cognitive needs: No Hearing needs: No Vision needs: No Questionnaire PHQ-9 Over the last 2 weeks, how often have you been bothered by any of the following problems? 1. Little interest or pleasure in doing things: not at all 2. Feeling down, depressed, or hopeless: not at all 3. Trouble falling or staying asleep, or sleeping too much: not at all 4. Feeling tired or having little energy: not at all 5. Poor appetite or overeating: not at all 6. Feeling bad about yourself - or that you are a failure or have let yourself or your family down: not at all 7. Trouble concentrating on things, such as reading the newspaper or watching television: not at all 8. Moving or speaking so slowly that other people could have noticed. Or the opposite - being so fidgety or restless that you have been moving around a lot more than usual: not at all 9. Thoughts that you would be better off or of hurting yourself in some way: not at all Total score: 0 Depression Screening Interpretation: Negative Depression Screening Done: Yes Source: Developed by Drs. Raza Nova, Kassandra Munoz, Steven Velasco and colleagues, with an educational nyla from [employer]. Thrive Questionnaire Date Thrive assessed: 01/14/25 I am a: Patient What is your living situation today?: I have a steady place to live Within the past 12 months, did the food you bought not last and you didn't have the money to get more?: Never true Within the past 12 months, did you worry whether your food would run out before you got money to buy more?: Never true Do you have trouble paying for medicines?: No Do you have trouble getting transportation to medical appointments?: No Do you have trouble paying your heating and electricity bill?: No Do you have trouble taking care of your child, family member or friend?: No Do you have trouble with day-to-day activities such as bathing, preparing meals, shopping, managing finances, etc.?: No Are you currently unemployed and looking for a job?: No Are you interested in more education?: No Please select the resources that you would like help with: None Currently or been in a relationship where the following occur: No concerns reported THRIVE Score: 0 AUDIT C Alcohol Use Questionnaire (AUDIT-C) 1. How often do you have a drink containing alcohol?: Never Total Score: 0 JOSÉ MANUEL-7 AMB Questionnaire JOSÉ MANUEL-7 Date JOSÉ MANUEL - 7 assessed: 01/14/25 Feeling nervous, anxious, or on edge: 0 = Not at all Not being able to stop or control worryin = Not at all Worrying too much about different things: 0 = Not at all Trouble relaxin = Not at all Being so restless that it is hard to sit still: 0 = Not at all Becoming easily annoyed or irritable: 0 = Not at all Feeling afraid as if something awful might happen: 0 = Not at all Total JOSÉ MANUEL-7 score (0-4 normal; 5-9 mild; 10-14 moderate; 15-21 severe): 0 Source: Developed by Drs. Raza Nova, Kassandra Munoz, Steven Velasco and colleagues, with an educational nyla from [employer]. Review of Systems Const Reports as per HPI Eyes Reports no additional complaints ENT Reports no additional complaints Card Denies chest pain at rest, Denies chest pain with activity, Denies syncope, Denies rapid heart rate and Denies irregular heart rhythm Resp Reports no additional complaints GI Reports no additional complaints Musc Denies abnormal gait and Reports stiffness Skin/Breast Denies lesions and Denies rash Neuro Reports as per HPI, Denies abnormal gait and Denies syncope Psych Reports no additional complaints Endo Reports no additional complaints Cole/Lymph Reports no additional complaints Aller/Immun Reports no additional complaints Physical exam (Primary Care) Vital Signs: Last Vital Signs Temp 97.9 F 08/27/25 10:52 Pulse 66 08/27/25 10:52 Resp 16 08/27/25 10:52 BP 124/62 08/27/25 10:52 Pulse Ox 98 08/27/25 10:52 Oxygen Delivery Method Room Air 08/27/25 10:52 BMI result Body Mass Index 32.6 Tobacco/Smoking Status: Tobacco use Status Tobacco use date assessed 08/27/25 08/27/25 10:57 Patient Tobacco Use Status Never used Tobacco 08/27/25 10:57 e-Cigarette/Vaping Use Never Used 08/27/25 10:57 PHQ-9: PHQ-9 Score PHQ-9: Total score 0 08/27/25 11:06 Depression Screening Interpretation: Negative Thrive Assessment: Date of Thrive Assessment Date Thrive assessed 01/14/25 08/27/25 10:57 Currently or been in a relationship where the following occur: No concerns reported Const Other: Spouse accompanying patient General: no acute distress, alert and awake Nutritional Appearance: obese Orientation/consciousness: patient oriented x3 [facility] General nose exam: Normal external nose present Face and sinus: Yes face symmetric Mouth: Normal oral and palatal mucosa present and moist mucous membranes Eyes General: appearance normal, both eyes and all related structures Neck Neck: Yes full ROM, Yes no lymphadenopathy and Yes supple Resp Effort & Inspection: normal respiratory effort and able to speak in complete sentences Auscultation: clear to auscultation bilaterally Cardio Rate: regular rate Rhythm: regular rhythm Heart sounds: S1 normal heart sound present and S2 normal heart sound present GI Inspection: Yes normal to inspection Palpation (GI): Soft to palpation, nontender and no masses Auscultation: normal bowel sounds General: Yes no CVA tenderness Back/Spine/Pelvis Back: no CVA tenderness and No back tenderness Skin General skin exam: no rashes or lesions noted Neuro General: patient oriented x3, moves all extremities, Normal light touch and pain sensation and no focal motor deficits Cognition (Neuro): normal cognition Gait exam (Neuro): Other gait observations present (slow gait) Extrem General: Yes no joint enlargement and Yes no pedal edema Psych Appearance: grossly normal and well kempt Mental Status: mental status grossly normal Speech and movement: Normal speech and movement present Affect: normal affect Coding Level of Care Code Est Pt Level 4 (40082) Diagnoses Impaired fasting glucose R73.01 Intermittent lightheadedness R42 Seronegative rheumatoid arthritis M06.00 Fibromyalgia M79.7 Xerostomia K11.7 Assessment & Plan Assessment & Plan (1) Impaired fasting glucose: Code(s): R73.01 - Impaired fasting glucose Category: Medical (2) Intermittent lightheadedness: Code(s): R42 - Dizziness and giddiness Category: Medical (3) Seronegative rheumatoid arthritis: Comment: Seronegative RA diagnosed in [place]. Evaluated at [facility] 2007 - has been on Plaquenil 200 mg BID and Enbrel weekly since then. MTX dates unknown. ENbrel DC 05/30 ineffective Humira 05/30. increased to weekly 10/2024 Plaquenil stopped 10/2024 due to eye changes Code(s): M06.00 - Rheumatoid arthritis without rheumatoid factor, unspecified site Category: Medical (4) Fibromyalgia: Code(s): M79.7 - Fibromyalgia Category: Medical (5) Xerostomia: Code(s): K11.7 - Disturbances of salivary secretion Category: Medical Plan 1. Prediabetes The patient's hemoglobin A1c of 6.1% places the patient in the prediabetic range. The patient will not be started on medication at this time. The plan focuses on lifestyle modifications to prevent progression to diabetes. Extensive counseling was provided on diet and exercise. Dietary recommendations include reducing intake of sugar, bread, white potatoes, and rice, and avoiding coffee creamers and artificial sweeteners. Healthier alternatives like whole grains, sweet potatoes, nuts, oatmeal, and alejandro seeds were encouraged. The patient was also advised against late-night snacking. For exercise, the patient was counseled to start 15 minutes of daily activity, such as walking, chair exercises, dancing (using Wii), or aquatic therapy in a warm pool to support the joints. Follow-up labs, including a hemoglobin A1c, cholesterol panel, and vitamin D level, will be ordered for November to coincide with the director of staff development's lab requests. 2. Dizziness The dizziness is believed to be a side effect of the patient's high-dose pregabalin for fibromyalgia. A referral to an Ear, Nose, and Throat (ENT) specialist is indicated, as previously recommended by physical therapy. A referral will be placed for a new ENT specialist who is expected to start in October at [facility] [place]. The patient was advised to call the office in October to facilitate this referral. 3. Fibromyalgia and Seronegative Rheumatoid Arthritis The patient takes a high dose of pregabalin for fibromyalgia pain. The patient also follows with rheumatology for seronegative RA. Exercise recommendations, particularly aquatic therapy, were made to help with joint pain. The patient will continue with current management and complete labs ordered by the director of staff development, Dr. Jones, in November. 4. Xerostomia (Dry Mouth) This is considered a side effect of medication (pregabalin) and not related to hyperglycemia. The plan is to continue monitoring without medication changes at this time. Patient was informed and verbally consented to the use of an ambient scribe for clinic note documentation during this visit. Orders: Orders Lipid Panel 11/08/25 R73.01 - Impaired fasting glucose, E55.9 - Vitamin D deficiency, unspecified, E66.01 - Morbid (severe) obesity due to excess calories Hemoglobin A1c 11/08/25 R73.01 - Impaired fasting glucose, E55.9 - Vitamin D deficiency, unspecified, E66.01 - Morbid (severe) obesity due to excess calories Vitamin D 25-OH Total 11/08/25 R73.01 - Impaired fasting glucose, E55.9 - Vitamin D deficiency, unspecified, E66.01 - Morbid (severe) obesity due to excess calories
[2025-08-27 10:52] VITALS: BP 124/62; PULSE 66; RESP 16; TEMP 36.6; O2SAT 98; BMI 32.6
--- OUTSIDE RECORDS SUMMARY | 2025-08-27 16:15 | XMS_ITS | Clinical Summary ---
Author Organization [facility] Address [address] [place] [address] Care Team Providers Care Freight Engineer Name Role Phone Unavailable Primary Care Provider [...] patient's age to complete this topic Insurance [facility] on file MEDICARE PART A & B Advance Directives * Full Code (Latest Code Status on File) Date Activated Date Inactivated Comments 02/13/2021 6:20 PM Question Answer Comments Decision Thoroughly Discussed with: Patient
--- OUTSIDE RECORDS SUMMARY | 2025-08-27 16:15 | XMS_ITS | Clinical Summary ---
Author Organization [facility] Address [address] [place] [address] Care Team Providers Care Mumps Developer Name Role Phone Unavailable Primary Care Provider [...]
== END 2025-08-27 11:45 | disposition home or self-care (01) ==
LOC: HO.HMCC 10:46
PROVIDERS: PCP Internal Medicine; Visit Provider Internal Medicine
DX: R73.01 Impaired fasting glucose (principal); R42 Dizziness and giddiness; M06.00 Rheumatoid arthritis without rheumatoid factor, unspecified site; M79.7 Fibromyalgia; K11.7 Disturbances of salivary secretion

== ENCOUNTER → 2025-08-27 10:45 | Outpatient (BNVA) | payer OTHER, SELFPAY | PROVIDERS: PCP Internal Medicine; Visit Provider Internal Medicine | DX: R73.01 Impaired fasting glucose (principal); R42 Dizziness and giddiness; M06.00 Rheumatoid arthritis without rheumatoid factor, unspecified site; M79.7 Fibromyalgia; K11.7 Disturbances of salivary secretion | CPT/HCPCS: 96127; 99212 ==

== ENCOUNTER 2025-10-06 11:08 | Outpatient (AMB) | payer MEDICARE, SELFPAY ==
--- NOTE | 2025-10-06 11:12 | MHC.OFFVIS ---
Intake Visit Reasons: 3m/KUB/UA(SET) Intake Note: Patient is present for 3M/KUB/UA Urology Medication:NONE Antibiotic Allergy:NONE Blood Thinner:NONE Literary Agent Required: No Literary Agent Services: Literary Agent Present Literary Agent Name: Marlee [id number] Allergies hydroxychloroquine Adverse Reaction (Intermediate, Verified 10/06/25 12:01) Questionable retinopathy Medication List - Last Reconciled 10/06/25 by TIAN Khan acetaminophen ER 650 mg PO Q8H PRN adalimumab (Humira(CF)) 40 mg (0.4 mL) subcut QWEEK carbamazepine 100 mg PO BID cholecalciferol (vitamin D3) 75 mcg PO DAILY diclofenac sodium 1% 1 ea topical DAILY PRN meclizine 12.5 mg PO DAILY PRN omeprazole 40 mg PO DAILY@0630 prednisone 5 mg PO DIRECTED pregabalin 150 mg PO BID pregabalin 25 mg PO BID [Transport wheelchair Use As directed] HPI Comments Details: Day is a pleasant 70 year old [place] speaking female patient Dr. oRuse. She has a past medical history of nephrolithiasis, sleep apnea, splenic artery aneurysm, trigeminal neuralgia, rheumatoid arthritis, GERD, hiatal hernia, fibromyalgia, osteoarthritis, insomnia, autoimmune urticaria, obesity, and cervical spondylosis. She presents to the office today for follow-up of her longstanding history of nephrolithiasis. Recent renal imaging results reviewed with the patient today. KUB 08/01 no evidence of renal or ureteral calculi. Bowel gas and stool limiting evaluation. Previous renal ultrasound 07/02 noted bilateral kidneys are normal in size, contour, and echogenicity. No hydronephrosis noted bilaterally. There is a probable mid pole obstructing calculus measuring 7 x 4 x 7 mm in the left kidney per radiology report. She reports flank pain she had been experiencing has since subsided. She reports she finds it difficult to differentiate her generalized body discomfort given her arthritis as well as history of fibromyalgia. She reports having followed up with ortho spine and has been undergoing injections that she has found helpful for her chronic back pain. In office urinalysis results reviewed with the patient today. When asked she denies urinary urgency, urinary frequency, incontinence, nocturia, hematuria, dysuria, foul smelling urine, changes to urinary stream, flank pain, fever, and or chills. She is happy with her current voiding parameters. She reports to be drinking plenty of water daily. She otherwise offers no other issues or concerns at this time. [facility] Medical History Unstable gait Intermittent lightheadedness Intertrigo Vitamin D deficiency Recurrent kidney stones Sleep apnea Splenic artery aneurysm Shoulder pain, right Trigeminal neuralgia of right side of face Seronegative rheumatoid arthritis Loose right total knee arthroplasty Gastroesophageal reflux disease Hiatal hernia Tailor's bunion of left foot Fibromyalgia Osteoarthritis Impaired fasting glucose Insomnia Cervical spondylosis without myelopathy Autoimmune urticaria Morbid obesity due to excess calories Surgical History S/P hip replacement History of esophagogastroduodenoscopy (EGD) History of colonoscopy History of arthroscopy of right shoulder History of laparoscopic cholecystectomy Status post laser lithotripsy of ureteral calculus History of bunionectomy of left great toe History of cranioplasty History of shoulder surgery Status post right knee replacement Family History Father Emphysema of lung Mother Hypertension Maternal Grandmother No problems noted. Maternal Grandfather No problems noted. Paternal Grandmother No problems noted. Paternal Grandfather No problems noted. Maternal Aunt Diabetes Sister No problems noted. Son No problems noted. Daughter No problems noted. Social History Household Members: Spouse and Family Household Members Other:: mother,daughter Housing: House Are you a primary care transition coordinator to a significant other at home: No Do you presently have visiting nurse or other home services: No Alcohol intake: never Patient Tobacco Use Status: Never used Tobacco e-Cigarette/Vaping Use: Never Used service: No Current occupational status: unemployed Current occupation: rt handed Cognitive needs: No Hearing needs: No Vision needs: No Review of Systems Const Reports as per HPI Eyes Reports no additional complaints ENT Reports no additional complaints Card Reports as per HPI Resp Reports no additional complaints GI Reports as per HPI Reports as per HPI Musc Reports as per HPI Neuro Reports as per HPI Psych Reports no additional complaints Physical Exam Const General: cooperative, healthy appearing, comfortable, no acute distress, well developed, alert and awake Orientation/consciousness: patient oriented x3 Limitations: language barrier HEENT Head: Yes normal to inspection, Yes normocephalic and Yes atraumatic Eyes General: appearance normal, both eyes and all related structures Neck Neck: Yes normal visual inspection and Yes trachea midline Chest Chest palpation & inspection: normal inspection of the chest Resp Effort & Inspection: normal respiratory effort and able to speak in complete sentences Cardio Rhythm: regular rhythm GI Inspection: Yes normal to inspection General: Yes no CVA tenderness Back/Spine/Pelvis Back: no CVA tenderness Neuro General: patient oriented x3 Psych Appearance: grossly normal Mental Status: mental status grossly normal Speech and movement: Normal speech and movement present and Clear speech present Affect: normal affect Attitude: cooperative Thought process: Normal thought process present Thought content: Normal thought content present Insight: Fair insight present (Psych) Judgement: Fair judgement present (Psych) Results AMB Urinalysis, Automated UA Leukoctes 0 Jocelyn/uL Last Edit by Cher Grigsby [facility] on 10/06/25 11:22 UA Nitrite Negative Last Edit by Cher Grigsby [facility] on 10/06/25 11:22 UA Urobilinogen 0.2 mg/dL Last Edit by Cher Grigsby [facility] on 10/06/25 11:22 UA Protein 0 mg/dL Last Edit by Cher Grigsby [facility] on 10/06/25 11:22 UA pH 6.0 Last Edit by Cher Grigsby [facility] on 10/06/25 11:22 UA Blood 0 Rm/uL Last Edit by Cher Grigsby [facility] on 10/06/25 11:22 UA Specific [place] 1.025 Last Edit by Cher Grigsby [facility] on 10/06/25 11:22 UA Ketone Negative Last Edit by Cher Grigsby [facility] on 10/06/25 11:22 UA Bilirubin 0 mg/dL Last Edit by Cher Grigsby [facility] on 10/06/25 11:22 UA Glucose 0 mg/dL Last Edit by Cher Grigsby [facility] on 10/06/25 11:22 Results Reviewed Results Reviewed: Laboratory Last Values Urine pH (Auto) 6.0 10/06/25 11:17 Specific [place] (Auto) 1.025 10/06/25 11:17 Urine Protein (Auto) 0 mg/dL 10/06/25 11:17 Glucose (UA)(Auto) 0 mg/dL 10/06/25 11:17 Urine Ketones (Auto) Negative 10/06/25 11:17 Urine Blood (Auto) 0 Rm/uL 10/06/25 11:17 Urine Nitrite (Auto) Negative 10/06/25 11:17 Urine Bilirubin (Auto) 0 mg/dL 10/06/25 11:17 Urine Urobilinogen (Auto) 0.2 mg/dL 10/06/25 11:17 Leukocyte Esterase (Auto) 0 Jocelyn/uL 10/06/25 11:17 Date of Service: 07/17/25 Procedure(s): XR KUB FINDINGS: Nonobstructive bowel gas pattern. Bowel gas and stool projected over the renal fossa limiting evaluation. No renal calculi identified. No ureteral calculi identified. Redemonstrated chronic peripheral calcified splenic artery aneurysm in the left upper quadrant, also seen on the prior radiographs and CT. Cholecystectomy clips. Thoracic spine degeneration. No acute lung findings. Right hip arthroplasty. IMPRESSION: No evidence of renal or ureteral calculi. Bowel gas and stool limiting evaluation. Assessment & Plan Assessment & Plan (1) Recurrent kidney stones: Code(s): N20.0 - Calculus of kidney Category: Medical Plan In office urinalysis results reviewed with the patient today; as noted above. Most recent KUB results reviewed with the patient today; as noted above. We did discuss variability and imaging. She currently denies any bothersome urinary issues or concerns. She reports be happy with current voiding parameters. Will continue with surveillance monitoring. All questions were answered. We discussed the importance of continuing with adequate hydration relation to nephrolithiasis as well as overall health and well-being. Continue adding 1 oz of lemon juice to water daily. Will obtain CT KUB Follow-up in 3-6 months with imaging; or sooner with any issues, concerns, and or questions. Orders: Orders AMB Urinalysis Automated Today Z13.9 - Encounter for screening, unspecified Patient Instructions: The patient had an opportunity to ask questions regarding the treatment plan. All questions were answered. Physical exam, labs, and imaging were discussed and reviewed in detail. As well as risks, benefits, and discussion of treatment choices. No major barriers to understanding were identified. The patient expressed understanding and agreement with the above treatment plan. The patient was made aware they should contact our office by phone for worsening of their current condition, the appearance of new symptoms, or with any questions or concerns. Compliance is encouraged with any medications and follow up testing that is ordered. It is a privilege to be allowed the opportunity to participate in? your urological care.? Again, if you have any questions or concerns If you have any questions or concerns please do not hesitate to contact me. The office is [phone]. This note is constructed using voice recognition software. While every effort has been made to ensure accuracy laundry superintendent errors may have been included. Yours sincerely, TIAN Khan Coding Level of Care Code Est Pt Level 3 (22118) Add On Problem Visit Only Diagnoses Recurrent kidney stones N20.0
--- OUTSIDE RECORDS SUMMARY | 2025-10-06 15:06 | XMS_ITS | Clinical Summary ---
Author Organization [facility] Address [address] [place] [address] Care Team Providers Care Oracle Solutions Architect Name Role Phone Unavailable Primary Care Provider [...] C Virus Screening 1955 COVID-19 Vaccine (#1) 04[birth year]01/1958 Quantiferon Gold TB 1967 DTaP/Tdap/Td Vaccines (1 [...] patient's age to complete this topic Insurance [facility] on file MEDICARE PART A & B Advance Directives * Full Code (Latest Code Status on File) Date Activated Date Inactivated Comments 02/13/2021 6:20 PM Question Answer Comments Decision Thoroughly Discussed with: Patient
--- OUTSIDE RECORDS SUMMARY | 2025-10-06 15:07 | XMS_ITS | Clinical Summary ---
Author Organization [employer] [facility] Prior to 03/07/[address] [place] [id number] Care Team Providers Care Advertising Agent Name Role Phone Unavailable Primary Care Provider [...]
== END 2025-10-06 11:48 | disposition home or self-care (01) ==
LOC: HO.HUSH 11:09
PROVIDERS: PCP Internal Medicine; Visit Provider Nurse Practitioner Family
DX: Z13.9 Encounter for screening, unspecified (principal); N20.0 Calculus of kidney
CPT/HCPCS: 99213; G2211

== ENCOUNTER → 2025-10-06 11:08 | Outpatient (BNVA) | payer OTHER, SELFPAY | PROVIDERS: PCP Internal Medicine; Visit Provider Nurse Practitioner Family | DX: N20.0 Calculus of kidney (principal) | CPT/HCPCS: 81003; 99212 ==